=== PATIENT | male | born 1945 | race African-American/Black ===

== ENCOUNTER 2016-09-19 09:49 | Inpatient (IN) | payer OTHER, MEDICARE ==
[~2016-09-19] VITALS: Ht 172.7 cm; Wt 49.9 kg
[2016-09-19] VITALS (7 sets, daily range): BP systolic 97–121; BP diastolic 61–77
[~2016-09-19 09:49] MED LIST: DIGOXIN0.125 MG/2 ORAL; EC-NAPROSYN375 MG PO; FOLIC ACID1 MG ORAL; FUROSEMIDE40 MG ORAL; HYDROCODON-ACE1 EA16 ORAL; IBUPROFEN600 MG ORAL; LANOXIN125 MCG ORAL; LISINOPRIL2.5 MG ORAL; LOPRESSOR25 M1 ORAL; METHADONE HCL10 MG PO; METHADONE HCL5 MG PO; METOPROLOL TART25 MG ORAL; MIRALAX17 G2 ORAL; MULTI VITAMIN1 EACH ORAL; NORCO 5-325 TA1 EACH ORAL; POTASSIUM CHLO20 ME3 PO; POTASSIUM20 MEQ/101 PO; ROBAXIN500 MG PO; SENNA-GEN8.6 M1 ORAL; SILDENAFIL20 MG ORAL; THIAMINE HCL50 MG PO; TRAMADOL HCL50 MG ORAL; UNOBMED; ZESTRIL10 M1 ORAL
[2016-09-19] MEDS ORDERED: NS 250 ML IV ONE (09:55)
[2016-09-19] MEDS ORDERED: Albuterol ud Inhalation HHN ONE (10:00)
[2016-09-19] MEDS ORDERED: Ipratropium 0.02% Inh Soln 2.5ml UD HHN ONE (10:00)
--- NOTE | 2016-09-19 10:03 | Emergency Room Report ---
History of Present Illness General Chief Complaint: Chest Pain Source: Patient, Medical Record Present Illness HPI Patient presents as a pickup from the ED driveway. Brought in by wheelchair with staff. Complaints of chest discomfort and left hip pain. The patient states that he had tripped and fallen and hit his left side on the ground. He also complains of chest discomfort, substernal, retrosternal, yesterday after the fall. Primarily complaining now of left hip pain. He has a history of CHF , history of apparently use, a history of smoking and possible COPD as well. Otherwise the patient denies shortness of breath or abdominal pain at this time. No bowel or bladder complaints, has not had a bowel movement since before the fall. Allergies: Coded Allergies: No Known Allergies (Unverified , 02/25/16) Patient History Past Medical History: see triage record, old chart reviewed, CHF, COPD, other - heroine abuse Past Surgical History: unable to obtain Pertinent Family History: unable to obtain Social History: Reports: drug use, smoking Immunizations: UTD Reviewed Nursing Documentation: PMH: Agreed Nursing Documentation-PMH Hx Cardiac Problems: Yes - CHF Hx Hypertension: Yes Hx Pacemaker: No Hx Asthma: Yes Hx COPD: Yes Hx Cancer: No Hx Gastrointestinal Problems: No Hx Neurological Problems: No Review of Systems Cardiovascular: Reports: chest pain Musculoskeletal: Reports: joint pain All Other Systems: negative except mentioned in HPI Physical Exam Vital Signs Date Time Temp Pulse Resp B/P Pulse Ox O2 Delivery O2 Flow Rate FiO2 09/19/16 09:52 Room Air General Appearance: no apparent distress, alert, GCS 15, cachetic, thin, other - severe contacted, very bony, almost no subcutaneous tissue Head: atraumatic Eyes: bilateral eye EOMI, bilateral eye PERRL ENT: hearing grossly normal, normal pharynx, dry mucus membranes Neck: full range of motion, supple Respiratory: no respiratory distress, no retraction, no accessory muscle use, no wheezing, decreased breath sounds Cardiovascular #1: regular rate, rhythm, no edema, no gallop Gastrointestinal: soft, no guarding, no hernia, no rebound Genitourinary: no CVA tenderness Neurologic: alert, oriented x3, responsive Psychiatric: judgement/insight normal, mood/affect normal Skin: other - low turgor, abrasions - old abrasions over bilateral dean, swelling of the left leg/Ankle below. +1 edema, unchanged from chronic per patient Lymphatic: no adenopathy Medical Decision Making Diagnostic Impression: Primary Impression: Chest pain Additional Impressions: Venous stasis ulcer Fall Hip pain, left Acute pain of left hip CHF (congestive heart failure) ER Course Patient is evaluated for chest discomfort as well as a fall with a skilled skeletal complaints of hip pain. Stat EKG as well as place patient on a monitor , x-rays of the chest as well as the hip and pelvis should be obtained and basic blood work. 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 And overall is bony exam reveals some tenderness but no crepitus and no obvious signs of fracture. He is very frail and probably osteo- penic at baseline so the risk of occult fracture is possible. Basic blood work has been reviewed and demonstrates an elevated BNP as well as low chloride. Patient's chest x-ray does not demonstrates severe pneumonia but there is some chronic changes possibly worsening effusion and pulmonary congestion. Patient is still in severe pain even after morphine and methadone and is unable to ambulate or weight-bear. I spoke with the patient's primary DrHaley as well as admitting physician Dr. Mcnally, to admit the patient for [facility] acute rehabilitation. On my initial evaluation do not appreciate acute fractures of the hip or pelvis, the patient does have prior surgery in both hips. Final read of the x-rays pending by radiology. Patient receive pain medications, Lasix, nebulizers and antibiotics as well as pain control in the emergency department. Laboratory Tests Test 09/19/16 10:05 White Blood Count 2.4 K/UL (4.8-10.8) L Red Blood Count 4.52 M/UL (4.70-6.10) L Hemoglobin 13.1 G/DL (14.2-18.0) L Hematocrit 42.0 % (42.0-52.0) Mean Corpuscular Volume 93 FL (80-99) Mean Corpuscular Hemoglobin 28.9 PG (27.0-31.0) Mean Corpuscular Hemoglobin Concent 31.1 G/DL (32.0-36.0) L Red Cell Distribution Width 14.1 % (11.6-14.8) Platelet Count 163 K/UL (150-450) Mean Platelet Volume 6.3 FL (6.5-10.1) L Neutrophils (%) (Auto) % (45.0-75.0) Lymphocytes (%) (Auto) % (20.0-45.0) Monocytes (%) (Auto) % (1.0-10.0) Eosinophils (%) (Auto) % (0.0-3.0) Basophils (%) (Auto) % (0.0-2.0) Differential Total Cells Counted 100 Neutrophils % (Manual) 50 % (45-75) Lymphocytes % (Manual) 31 % (20-45) Monocytes % (Manual) 15 % (1-10) H Eosinophils % (Manual) 4 % (0-3) H Basophils % (Manual) 0 % (0-2) Band Neutrophils 0 % (0-8) Platelet Estimate Adequate Platelet Morphology Normal Hypochromasia 1+ Anisocytosis 1+ Sodium Level 136 mEQ/L (135-145) Potassium Level 3.4 mEQ/L (3.4-4.9) Chloride Level 92 mEQ/L (98-107) L Carbon Dioxide Level 35 mEQ/L (20-30) H Anion Gap 9 (5-15) Blood Urea Nitrogen 9 mg/dL (7-23) Creatinine 0.7 mg/dL (0.7-1.2) Estimat Glomerular Filtration Rate > 60 mL/min (>60) Glucose Level 70 mg/dL (74-106) L Calcium Level 8.8 mg/dL (8.6-10.2) Total Bilirubin 0.7 mg/dL (0.0-1.2) Aspartate Amino Transf (AST/SGOT) 25 U/L (5-40) Alanine Aminotransferase (ALT/SGPT) 7 U/L (3-41) Alkaline Phosphatase 69 U/L (40-129) Total Creatine Kinase 88 U/L (38-174) Creatine Kinase MB 2.6 ng/mL (< 6.7) Creatine Kinase MB Relative Index 2.9 Troponin I < 0.30 ng/mL (<=0.30) Pro-B-Type Natriuretic Peptide 6940 pg/mL (0-125) H Total Protein 8.7 g/dL (6.6-8.7) Albumin 3.5 g/dL (3.5-5.2) Globulin 5.2 g/dL Albumin/Globulin Ratio 0.6 (1.0-2.7) L Digoxin Level < 0.3 ng/mL (0.5-2.0) L Lab Results Impression noted elevated BNP, mildly low chloride EKG Diagnostic Results EKG Time: 09:53 Rate: tachycardiac, other - sinus tachycardia with occasional PVC Rhythm: NSR ST Segments: other - left axis deviation, incomplete right bundle branch block , occasional PVC ASA given to the pt in ED: No Rhythm Strip Diag. Results Rhythm Strip Time: 12:07 EP Interpretation: yes Rate: rate 100 Rhythm: NSR, other - with occasional PVC Chest X-Ray Diagnostic Results Time: 12:07 EP Interpretation: Yes Findings: no effusion, no pneumothorax, no acute cardiopulmonary disease, other - chronic stable chest x-ray by my impression, signs of COPD and cardiomegaly Other X-Ray Diagnostic Results Other X-Ray Diagnostic Results : X-Ray Ordered: hip and pelvis x-rays Date: Sep 19, 2016 Time: 12:08 EP Interpretation: Yes Findings: no fractures, no dislocation, no soft tissue swelling, other - hardware in both hips, 3 screws in the left hip, no acute fracture or hardware damage per my initial report Number of Views: other Reevaluation Time: 14:15 Last Vital Signs Date Time Temp Pulse Resp B/P Pulse Ox O2 Delivery O2 Flow Rate FiO2 09/19/16 09:52 Room Air Status: improved Disposition: ADMITTED INPATIENT Admit Decision Time: 14:16 Condition: Serious Richard Fowler MD Sep 19, 2016 10:03
[2016-09-19] MEDS ORDERED: Tubing IV Cassette IV ONE (10:18)
[2016-09-19 10:37] LABS: TROPONIN I < 0.30 ng/mL (<=0.30)
[2016-09-19 10:38] LABS: ALANINE AMINOTRANSFERASE 7 U/L (3-41); ALBUMIN/GLOBULIN RATIO 0.6 (1.0-2.7); ANION GAP 9 (5-15); ASPARTATE AMINO TRANSFERASE 25 U/L (5-40); CALCIUM 8.8 mg/dL (8.6-10.2); CARBON DIOXIDE 35 mEQ/L (20-30); CHLORIDE 92 mEQ/L (98-107); CREATININE 0.7 mg/dL (0.7-1.2); GLOMERULAR FILTRATION RATE > 60 mL/min (>60); HEMOLYSIS 0; POTASSIUM 3.4 mEQ/L (3.4-4.9); SODIUM 136 mEQ/L (135-145); TOTAL PROTEIN 8.7 g/dL (6.6-8.7)
[2016-09-19 10:45] LABS: MEAN CORPUSCULAR HEMOGLOBIN 28.9 PG (27.0-31.0); MEAN CORPUSCULAR HGB CONC 31.1 G/DL (32.0-36.0); MEAN CORPUSCULAR VOLUME 93 FL (80-99); MEAN PLATELET VOLUME 6.3 FL (6.5-10.1); PLATELET COUNT 163 K/UL (150-450); RED BLOOD COUNT 4.52 M/UL (4.70-6.10); RED CELL DISTRIBUTION WIDTH 14.1 % (11.6-14.8); WHITE BLOOD COUNT 2.4 K/UL (4.8-10.8)
[2016-09-19 10:49] LABS: CKMB 2.6 ng/mL (< 6.7); DIGOXIN < 0.3 ng/mL (0.5-2.0)
[2016-09-19 11:10] LABS: EOSINOPHILS % (MANUAL) 4 % (0-3); LYMPHOCYTES % (MANUAL) 31 % (20-45); NEUTROPHILS % (MANUAL) 50 % (45-75); TOTAL CELLS COUNTED 100
[2016-09-19 11:11] LABS: ANISOCYTOSIS 1+; BAND NEUTROPHILS % (MANUAL) 0 % (0-8); BASOPHILS % (MANUAL) 0 % (0-2); HYPOCHROMASIA 1+; PLATELET ESTIMATE ADEQUATE; PLATELET MORPHOLOGY NORMAL
--- NOTE | 2016-09-19 12:11 | Diagnostic Imaging Report ---
Indications: Chest pain Technique: Portable AP chest Findings: Comparison: 06/23/16 Linear densities have developed in the right lung base have increased the left lung base. Background bibasal interstitial prominence unchanged. Cardiac silhouette remains enlarged. Central pulmonary vasculature remains prominent. Peripheral pulmonary vasculature remains within normal limits. Left costophrenic angle now indistinct; right remain sharp. Aortic arch calcification again noted. IMPRESSION: Development of right, increase in left basal subsegmental atelectasis Small left pleural effusion not excludable Stable chronic changes as described
[2016-09-19] MEDS ORDERED: Azithromycin Inj IV ONE (12:38)
[2016-09-19] MEDS ORDERED: Azithromycin 500 MG in NS 275 ML IVPB ONE (12:45)
[2016-09-19] MEDS ORDERED: Morphine Sulfate 4mg/ml Inj IVP ONE (13:00)
--- NOTE | 2016-09-19 17:50 | History & Physical ---
History and Physical History & Physicial Dictated for Int Med-Dr Villa no. [id number]. VELMA WELCH Sep 19, 2016 17:50
[2016-09-19] MEDS: Morphine Sulfate 2mg/ml Inj IVP PRN ×2 (18:56→23:04)
[2016-09-19] MEDS ORDERED: Morphine Sulfate 4mg/ml Inj IVP PRN (20:00)
[2016-09-19] MEDS ORDERED: Morphine Sulfate 2mg/ml Inj IVP PRN (20:00)
[2016-09-19] MEDS ORDERED: Heparin 5000 units/ml inj SUBQ SCH (21:00)
[2016-09-19] MEDS: Heparin 5000 units/ml inj SUBQ SCH (23:03)
[2016-09-20] VITALS (7 sets, daily range): BP systolic 95–116; BP diastolic 60–73
--- NOTE | 2016-09-20 02:38 | History and Physical Report ---
DATE OF ADMISSION: 09/19/2016 CHIEF COMPLAINT: The patient is a 71-year-old, male, presents to complaint of left hip pain, chest pain, and shortness of breath. HISTORY OF PRESENT ILLNESS: The patient states he fell yesterday on 09/18/2016. The patient injured his left hip. The patient may have had previous surgery of the left hip. The patient also complains of tightness in the chest. The patient also complains of shortness of breath. The patient presented to [facility]. The patient was admitted for chest pain to rule out acute coronary syndrome and left hip pain to rule out fracture. PAST MEDICAL HISTORY: Significant for: 1. Type 2 diabetes. 2. Congestive heart failure. 3. Chronic obstructive pulmonary disease. 4. Hypertension. 5. History of atrial fibrillation. CURRENT MEDICATIONS: 1. Digoxin 0.125 mg one tablet p.o. daily. 2. Folic acid 1 mg one tablet p.o. daily. 3. Lasix 40 mg one tablet p.o. daily. 4. Lisinopril 10 mg one tablet p.o. daily. 5. Ibuprofen 600 mg one tablet p.o. q.6 h. 6. Cresson 5/325 one tablet p.o. q.4 h. p.r.n. 7. Methadone 50 mg one tablet p.o. daily. 8. Robaxin 500 mg one tablet p.o. three times daily. 9. Lopressor 12.5 mg one tablet p.o. q.12 h. 10. Multivitamin daily. 11. Naprosyn 220 mg one tablet p.o. three times daily. 12. Potassium chloride 20 mEq one tablet p.o. daily. 13. Thiamin 100 mg one tablet p.o. daily. ALLERGIES: No known drug allergies. SOCIAL HISTORY: The patient is single and is disabled. The patient admits to tobacco use of one pack per day. The patient states he quit drinking alcohol six months ago. REVIEW OF SYSTEMS: CONSTITUTIONAL: The patient denies weight loss or weight gain. The patient denies fevers or chills. HEENT: The patient denies ear or throat pain. CARDIOVASCULAR: The patient denies palpitations or chest pain. CHEST: The patient denies wheeze or shortness of breath. ABDOMEN: The patient denies nausea, vomiting, diarrhea, or constipation. GENITOURINARY: The patient denies dysuria or increased frequency of urination. NEUROMUSCULAR: The patient complains of as above. The patient complains of bilateral feet swelling. The patient denies any generalized weakness. PHYSICAL EXAMINATION: VITAL SIGNS: Temperature 98, respirations 18, pulse 94, blood pressure 119/77. GENERAL: The patient is cachectic, thin-appearing, and disheveled male in no apparent distress. HEENT: Eyes - pupils are equal and responsive to light and accommodation. Extraocular movements are intact. NECK: Supple without lymphadenopathy. CHEST: Lungs are clear to auscultation bilaterally without wheezes or rales. CARDIOVASCULAR: Regular rhythm and rate. S1 and S2. No murmurs, rubs, or gallops. ABDOMEN: Soft, nontender, and nondistended. Positive bowel sounds. No evidence of hepatosplenomegaly currently. No rebound. No guarding noted. EXTREMITIES: Negative for clubbing, cyanosis, or or edema. RECTAL/GENITAL: Refused. NEUROLOGIC: Cranial nerves II through XII are grossly intact without focal deficits. Motor strength is 5/5 bilaterally. Deep tendon reflexes 2+ plantar. LABORATORY STUDIES: WBC 2.4, hemoglobin 13.1, hematocrit 42.0, and platelets 163,000. Sodium 136, potassium 3.4, chloride 92, CO2 35, BUN 9, creatinine 0.7, glucose 72. Troponin less is less than 0.3. BNP elevated at 6940. Urine drug screen was positive for opiates. ASSESSMENT: This is a 71-year-old male with: 1. Chest pain. 2. Shortness of breath. 3. Left hip pain. 4. Congestive heart failure. 5. Diabetes type 2. 6. Hypertension. 7. Atrial fibrillation. 8. Chest pain. A Cardiology consultation has been obtained with Dr. Zepeda. The patient's BNP is elevated. An echocardiogram is pending. Serial troponin levels will be run. The patient will continue Lasix as above. 9. Diabetes type 2. The patient is currently off antihyperglycemic medication. Hemoglobin A1c is pending. The patient has been started on a regular insulin sliding scale. 10. Hypertension. Continue Lopressor as above. 11. Atrial fibrillation. Continue digoxin as above. A Cardiology consultation obtained with Dr. Zepeda. Tyrese Mcnally M.D. DR: LELE JOB#: [id number] CC:
[2016-09-20 08:19] LABS: MEAN CORPUSCULAR HEMOGLOBIN 28.9 PG (27.0-31.0); MEAN CORPUSCULAR HGB CONC 30.8 G/DL (32.0-36.0); MEAN CORPUSCULAR VOLUME 94 FL (80-99); MEAN PLATELET VOLUME 5.9 FL (6.5-10.1); PLATELET COUNT 135 K/UL (150-450); RED BLOOD COUNT 4.26 M/UL (4.70-6.10); RED CELL DISTRIBUTION WIDTH 14.1 % (11.6-14.8); WHITE BLOOD COUNT 2.7 K/UL (4.8-10.8)
[2016-09-20] MEDS: Morphine Sulfate 2mg/ml Inj IVP PRN ×3 (08:34→21:04)
[2016-09-20] MEDS: Heparin 5000 units/ml inj SUBQ SCH ×2 (08:35→21:00)
[2016-09-20] MEDS: Digoxin 0.125mg tab ORAL SCH (08:36)
[2016-09-20] MEDS: Furosemide 40mg tab ORAL SCH (08:36)
[2016-09-20 08:38] LABS: TROPONIN I < 0.30 ng/mL (<=0.30)
--- NOTE | 2016-09-20 08:41 | Consultation ---
Consult Note Consult Note Cardiology for Dr. Zepeda Full consult dictated. # [id number] ROMULO AMBROSIO Sep 20, 2016 08:41
[2016-09-20 08:42] LABS: ANION GAP 8 (5-15); CALCIUM 8.5 mg/dL (8.6-10.2); CARBON DIOXIDE 36 mEQ/L (20-30); CHLORIDE 92 mEQ/L (98-107); CREATININE 0.6 mg/dL (0.7-1.2); GLOMERULAR FILTRATION RATE > 60 mL/min (>60); HEMOLYSIS 3; POTASSIUM 3.7 mEQ/L (3.4-4.9); SODIUM 136 mEQ/L (135-145)
[2016-09-20] MEDS ORDERED: Digoxin 0.125mg tab ORAL SCH (09:00)
[2016-09-20] MEDS ORDERED: Furosemide 40mg tab ORAL SCH (09:00)
--- NOTE | 2016-09-20 10:10 | Diagnostic Imaging Report ---
Indications: Pelvic and left hip pain Technique: AP pelvis, 2 views left hip. Findings: Comparison: None No acute fracture, dislocation, joint space widening , lytic destruction, periosteal reaction , surrounding soft tissue swelling/foreign body/gas, or other acute changes are identified. Fixation hardware bridges an old, healed fractures of the right femoral intertrochanteric region, left femoral neck with residual deformity. Old fractures with residual contour deformity right inferior, left superior ischiopubic rami. Bones diffusely demineralized. IMPRESSION: No evidence of acute abnormality Multiple old fractures as described, status post bilateral femoral ORIF Osteopenia
[2016-09-20 11:49] LABS: BAND NEUTROPHILS % (MANUAL) 0 % (0-8); BASOPHILS % (MANUAL) 2 % (0-2); EOSINOPHILS % (MANUAL) 6 % (0-3); HYPOCHROMASIA 1+; LYMPHOCYTES % (MANUAL) 36 % (20-45); NEUTROPHILS % (MANUAL) 42 % (45-75); PLATELET ESTIMATE DECREASED; PLATELET MORPHOLOGY NORMAL; TOTAL CELLS COUNTED 100
--- NOTE | 2016-09-20 13:08 | Consultation ---
DATE OF CONSULTATION: This is being done as coverage for Dr. Zepeda. REASON FOR CONSULT: Chest pain. HISTORY OF PRESENT ILLNESS: History is obtained from the chart as well as limited history from the patient who is a fair historian. HISTORY OF PRESENT ILLNESS: The patient is a 71-year-old man with type 2 diabetes, history of atrial fibrillation, COPD, and hypertension, who presents with left hip pain and chest pain. He states that he fell on the day prior to admission. He injured his left side. He also developed chest pain. He was admitted for further treatment. He states that he has not had previous chest pain, angina, or myocardial infarction. Per the chart, the patient has a history of congestive heart failure though he is not aware of any cardiac diagnosis. MEDICATIONS: Digoxin 0.125 mg daily, Lasix 40 mg daily, subcutaneous heparin 5000 units every 12 hours,, morphine 2 mg intravenous every four hours as needed, and Tylenol as needed. ALLERGIES: No known drug allergies. PAST MEDICAL HISTORY: As noted above. SOCIAL HISTORY: The patient reports smoking few cigarettes per day. Denies alcohol or drug use. PHYSICAL EXAMINATION: VITAL SIGNS: Blood pressure is 98/60, pulse 69 regular, respirations 20, and afebrile. GENERAL: Alert, cachectic male, complaining of left hip pain, leg pain, and asking for pain medication. HEENT: Normocephalic and atraumatic. Pupils are equal, round, and reactive to light. Sclerae anicteric. Oral mucosa are moist. NECK: Supple. There is no jugular venous distention. No carotid bruits. LUNGS: Decreased breath sounds at the bases. HEART: Regular S1 and S2. No murmurs, rubs, or S3. ABDOMEN: Soft, nontender. No palpable mass. EXTREMITIES: No cyanosis, clubbing, or edema. A 2+ dorsalis pedis pulses bilaterally. Venous stasis changes. LABORATORY DATA: Hemoglobin 12.3, white blood count 2700, and platelets 135,000. Potassium 3.4, BUN 9, and creatinine 0.7. Pro-natriuretic peptide 6940. Troponin less than 0.3. Chest x-ray shows linear density at the right base, prominent central pulmonary vasculature, and possible small left pleural effusion. EKG shows sinus tachycardia, rate of 100 beats per minute, occasional premature ventricular and premature atrial complexes, incomplete right bundle branch block, and no ST-segment changes. ASSESSMENT AND RECOMMENDATIONS: The patient is a 71-year-old man with a history of hypertension, diabetes, atrial fibrillation, and congestive heart failure per the chart. He presents with the left-sided pain as well as chest pain following a fall. The cause of his chest pain is uncertain, but would appear more likely to be musculoskeletal also history of drug use per chart though the patient denies. He was admitted with left hip pain and chest pain following a fall and the fall was nonsyncopal. The cause of his chest pain is uncertain, but would appear more likely to be musculoskeletal given the absence of ischemic EKG changes and negative troponin levels. I would recommend obtaining an echo to clarify the diagnosis of congestive heart failure and also to assess regional wall motion. He is currently normotensive and does not require antihypertensive currently so if he has left ventricular dysfunction, we would start an angiotensin-converting enzyme inhibitor or angiotensin receptor christine. I would not pursue further workup for ischemia at this time given that his pain is atypical and there are no objective signs and symptoms of myocardial ischemia. Thank you for allowing me to see him in Cardiology consultation. I will follow up the results of his echo and make further recommendations. Thank you. I would not pursue further workup for myocardial ischemia at this time given the nature of his symptoms and lack of objective evidence for myocardial ischemia. Thank you for allowing me to see him in Cardiology consultation. I will follow up the results of his echo and make further recommendations. Damaris Ren M.D. DR: SHAYY JOB#: [id number] CC: Tyrese Mcnally M.D.; Fax#: [phone]
--- NOTE | 2016-09-20 15:45 | Wound Care Consultation ---
Wound Assessment Wound Assessment #1: Wound Present on Admission: Yes New Wound: No Status Change of Wound: No Wound Location Body Site Modif: left, anterior Wound Location Body Site: leg Wound Type: scar Andrés Test: Does not Andrés Wound Thickness: Full Thickness Wound Length: 14.0 Wound Width: 2.0 Wound Depth: utd Percent of Wound Carrier/Red: 100 Wound Drainage Amount: None Wound Drainage Odor: None/Absent Tissue Surrounding Wound: dry and flaky skin Wound General Appearance: Asymptomatic, Open to air Wound Assessment #2: Wound Number: #2 Wound Present on Admission: Yes New Wound: No Status Change of Wound: No Wound Location Body Site Modif: right, anterior Wound Location Body Site: leg Wound Type: scar Andrés Test: Does not Andrés Wound Thickness: Full Thickness Wound Length: 17.0 Wound Width: 3.0 Wound Depth: utd Percent of Wound Carrier/Red: 100 Wound Drainage Amount: None Wound Drainage Odor: None/Absent Tissue Surrounding Wound: dry and flaky skin Wound General Appearance: Asymptomatic, Open to air Wound Comment #1 Left lower leg with old scar and dry flaky skin #2 Right lower leg with old scar and dry flaky skin Recommendation -Keep clean and dry -Keep dry skin moist -Optimize nutrition -Offload both heels -Turn and reposition -Assess and f/u with MD for any changes BRIAN RAMIREZ RN Sep 20, 2016 15:45
--- NOTE | 2016-09-20 16:34 | Internal Med Progress Note ---
Subjective Physician Name Justus Ruffin Attending Physician Justus Ruffin M.D. Current Medications Medications (Trade) Dose Ordered Sig/Aimee Route PRN Reason Start Time Stop Time Status Last Admin Dose Admin Acetaminophen (Tylenol) 650 mg Q4H PRN ORAL FEVER 09/19/16 20:00 10/19/16 19:59 Digoxin (Lanoxin) 0.125 mg DAILY ORAL 09/20/16 09:00 10/20/16 08:59 09/20/16 08:36 Furosemide (Lasix) 40 mg DAILY ORAL 09/20/16 09:00 10/20/16 08:59 Heparin Sodium (Porcine) (Heparin 5000 units/ml) 5,000 units EVERY 12 HOURS SUBQ 09/19/16 21:00 10/19/16 20:59 09/20/16 08:35 Morphine Sulfate (Morphine Sulfate) 2 mg Q4H PRN IVP Moderate Pain (Pain Scale 4-6) 09/19/16 20:00 09/26/16 19:59 09/20/16 08:34 Morphine Sulfate (Morphine Sulfate) 4 mg Q4H PRN IVP Severe Pain (Pain Scale 7-10) 09/19/16 20:00 09/26/16 19:59 Ondansetron HCl (Zofran) 4 mg Q6H PRN IVP Nausea & Vomiting 09/19/16 20:00 10/19/16 19:59 Vitamin A/Vitamin D (A & D Oint) 1 applic EVERY 12 HOURS TOPIC 09/20/16 21:00 10/20/16 20:59 Allergies: Coded Allergies: No Known Allergies (Unverified , 02/25/16) All Systems: reviewed and negative except above - left leg pain Objective Last Vital Signs Date Time Temp Pulse Resp B/P Pulse Ox O2 Delivery O2 Flow Rate FiO2 09/20/16 16:00 98.2 83 18 102/66 93 Room Air 09/20/16 11:27 3.0 09/19/16 15:54 28 General Appearance: WD/WN, no apparent distress, other - cachectic EENT: PERRL/EOMI, normal ENT inspection Neck: supple, normal inspection Cardiovascular: normal rate, regular rhythm Respiratory/Chest: lungs clear, normal breath sounds Abdomen: non tender, soft Extremities: normal inspection, no calf tenderness Edema: trace edema Neurologic: other - can move all extremities except left lower ext. awake and alert Skin: normal pigmentation, warm/dry Laboratory Tests Test 09/20/16 07:45 White Blood Count 2.7 K/UL (4.8-10.8) L Red Blood Count 4.26 M/UL (4.70-6.10) L Hemoglobin 12.3 G/DL (14.2-18.0) L Hematocrit 39.9 % (42.0-52.0) L Mean Corpuscular Volume 94 FL (80-99) Mean Corpuscular Hemoglobin 28.9 PG (27.0-31.0) Mean Corpuscular Hemoglobin Concent 30.8 G/DL (32.0-36.0) L Red Cell Distribution Width 14.1 % (11.6-14.8) Platelet Count 135 K/UL (150-450) L Mean Platelet Volume 5.9 FL (6.5-10.1) L Neutrophils (%) (Auto) % (45.0-75.0) Lymphocytes (%) (Auto) % (20.0-45.0) Monocytes (%) (Auto) % (1.0-10.0) Eosinophils (%) (Auto) % (0.0-3.0) Basophils (%) (Auto) % (0.0-2.0) Differential Total Cells Counted 100 Neutrophils % (Manual) 42 % (45-75) L Lymphocytes % (Manual) 36 % (20-45) Monocytes % (Manual) 14 % (1-10) H Eosinophils % (Manual) 6 % (0-3) H Basophils % (Manual) 2 % (0-2) Band Neutrophils 0 % (0-8) Platelet Estimate Decreased L Platelet Morphology Normal Red Blood Cell Morphology Hypochromasia 1+ Sodium Level 136 mEQ/L (135-145) Potassium Level 3.7 mEQ/L (3.4-4.9) Chloride Level 92 mEQ/L (98-107) L Carbon Dioxide Level 36 mEQ/L (20-30) H Anion Gap 8 (5-15) Blood Urea Nitrogen 9 mg/dL (7-23) Creatinine 0.6 mg/dL (0.7-1.2) L Estimat Glomerular Filtration Rate > 60 mL/min (>60) Glucose Level 63 mg/dL (74-106) L Calcium Level 8.5 mg/dL (8.6-10.2) L Troponin I < 0.30 ng/mL (<=0.30) Pro-B-Type Natriuretic Peptide 6902 pg/mL (0-125) H Intake and Output 09/19/16 09/20/16 19:00 07:00 Intake Total 525 ml 240 ml Output Total 1900 ml 300 ml Balance -1375 ml -60 ml Intake Oral 0 ml 240 ml IV Total 525 ml Output Urine Total 1900 ml 300 ml # Voids 1 Assessment/Plan Assessment/Plan 1. Left hip pain. 2. Fall - xrays of hip shows no fracture - PT eval - suggested going to SNF. cannot take care of himself - check orthostatics - ortho evaluation 3. h/o heroin use on Methadone - pharmacy to c/w methadone (can confirm with methadone clinic) 4. h/o Systolic Dysfunction Congestive heart failure --> resolved 5. Diabetes type 2 - RISS 6. Hypertension. --> now hypotension 7. Atrial fibrillation - c/w digoxin - cards f/u 8. h/o ORIF and several old fractures from falls JUSTUS RUFFIN M.D. Sep 20, 2016 16:33
--- NOTE | 2016-09-20 21:29 | Cardiology Report ---
APPROVED REPORT EKG Measurement Heart [id number] Sinus tachycardia with occasional premature ventricular complexes Left axis deviation Incomplete right bundle branch block Cannot rule out Anterior infarct, age undetermined Abnormal ECG
[2016-09-20] MEDS: Vitamin A&D Oint 2oz Tube TOPIC SCH (21:32)
[2016-09-21] MEDS: Morphine Sulfate 4mg/ml Inj IVP PRN ×4 (01:23→20:04)
[2016-09-21 04:00] VITALS: BP 108/71
[2016-09-21 08:30] VITALS: BP 116/77
[2016-09-21] MEDS: Vitamin A&D Oint 2oz Tube TOPIC SCH ×2 (09:11→22:27)
[2016-09-21] MEDS: Furosemide 40mg tab ORAL SCH (09:12)
[2016-09-21] MEDS: Digoxin 0.125mg tab ORAL SCH (09:13)
[2016-09-21] MEDS: Heparin 5000 units/ml inj SUBQ SCH ×2 (09:16→21:00)
[2016-09-21 12:00] VITALS: BP 99/59
[2016-09-21 12:03] VITALS: BP 99/59
--- NOTE | 2016-09-21 14:24 | Cardiology Report ---
APPROVED REPORT EXAM: Two-dimensional and M-mode echocardiogram with Doppler and color Doppler. INDICATION Chest Pain M-Mode DIMENSIONS IVSd1.1 (0.7-1.1cm)Left Atrium (MM)3.7 (1.6-4.0cm) LVDd4.9 (3.5-5.6cm)Aortic Root3.1 (2.0-3.7cm) PWd0.8 (0.7-1.1cm)Aortic Cusp Exc.1.9 (1.5-2.0cm) LVDs2.7 (2.5-4.0cm) PWs1.3 cm Abnormal septal motion maybe due to RV volume overload, otherwise normal systolic function and wall motion. Left ventricular ejection fraction estimated to be 55-60 %. No evidence of left ventricular hypertrophy. No evidence of pericardial fat or effusion. Severe right atrial and right ventricular enlargement by 2D. Moderate enlargement of the right chambers. D-shape LV in short axis view suggests RV volume overload. Left cardiac chamber sizes are within normal limits. Focal aortic valve sclerosis with adequate cusp excursion Thickened mitral valve leaflets with normal excursion. Mitral annulus and aortic root calcification. Pulmonic valve not well visualized. Thickened tricuspid valve leaflet with normal excursion. IVC dilated at 2.1cm with minimal physiologic collapse. A color flow and spectral Doppler study was performed and revealed: No aortic regurgitation. Trace mitral regurgitation. Left ventricular diastolic dysfunction grade 1. Moderate tricuspid regurgitation. Tricuspid systolic velocities suggests peak right ventricular systolic pressure of 53 mmHg Consistent with severe pulmonary hypertension.
[2016-09-21 16:00] VITALS: BP 114/78
[2016-09-21] MEDS: Morphine Sulfate 2mg/ml Inj IVP PRN (16:45)
--- NOTE | 2016-09-21 17:55 | Internal Med Progress Note ---
Subjective Physician Name Justus Ruffin Attending Physician Justus Ruffin M.D. Current Medications Medications (Trade) Dose Ordered Sig/Aimee Route PRN Reason Start Time Stop Time Status Last Admin Dose Admin Acetaminophen (Tylenol) 650 mg Q4H PRN ORAL FEVER 09/19/16 20:00 10/19/16 19:59 Digoxin (Lanoxin) 0.125 mg DAILY ORAL 09/20/16 09:00 10/20/16 08:59 09/21/16 09:13 Folic Acid (Folate) 1 mg DAILY ORAL 09/21/16 09:00 10/21/16 08:59 09/21/16 09:14 Furosemide (Lasix) 40 mg DAILY ORAL 09/20/16 09:00 10/20/16 08:59 09/21/16 09:12 Heparin Sodium (Porcine) (Heparin 5000 units/ml) 5,000 units EVERY 12 HOURS SUBQ 09/19/16 21:00 10/19/16 20:59 09/21/16 09:16 Methadone HCl (Methadone HCl) 40 mg DAILY ORAL 09/21/16 09:00 09/28/16 08:59 09/21/16 09:12 Morphine Sulfate (Morphine Sulfate) 2 mg Q4H PRN IVP Moderate Pain (Pain Scale 4-6) 09/19/16 20:00 09/26/16 19:59 09/21/16 16:45 Morphine Sulfate (Morphine Sulfate) 4 mg Q4H PRN IVP Severe Pain (Pain Scale 7-10) 09/19/16 20:00 09/26/16 19:59 09/21/16 10:58 Ondansetron HCl (Zofran) 4 mg Q6H PRN IVP Nausea & Vomiting 09/19/16 20:00 10/19/16 19:59 Vitamin A/Vitamin D (A & D Oint) 1 applic EVERY 12 HOURS TOPIC 09/20/16 21:00 10/20/16 20:59 09/21/16 09:11 Allergies: Coded Allergies: No Known Allergies (Unverified , 02/25/16) Subjective on 2-3L with O2 sat 92-94% denies SOB RLE pain and weakness better 12pt ROS neg except above positives Objective Last Vital Signs Date Time Temp Pulse Resp B/P Pulse Ox O2 Delivery O2 Flow Rate FiO2 09/21/16 16:00 89 100 99 09/21/16 16:00 97.0 18 114/78 94 Nasal Cannula 2.0 09/21/16 15:52 32 General Appearance: alert, cachetic EENT: PERRL/EOMI, TMs normal Neck: supple, normal inspection Cardiovascular: normal rate, regular rhythm Respiratory/Chest: decreased breath sounds, crackles/rales Abdomen: non tender, soft Extremities: normal range of motion, normal inspection Edema: trace edema Neurologic: alert, other - left leg weakness Skin: no diaphoresis, other - stasis dermatitis of legs Intake and Output 09/20/16 09/21/16 19:00 07:00 Intake Total 930 ml 120 ml Output Total 550 ml 100 ml Balance 380 ml 20 ml Intake Oral 930 ml 120 ml Output Urine Total 550 ml 100 ml # Voids 2 Assessment/Plan Assessment/Plan 1. Left hip pain - likely musculosketal 2. Fall - xrays of hip shows no fracture - PT evaluation - SNF vs Home with PT - suggested going to SNF. cannot take care of himself at home but does have caregiver - check orthostatics - neg - TTE - preserved EF but RV fluid overload. 3. h/o heroin use on Methadone - pharmacy to c/w methadone (can confirm with methadone clinic) 4. h/o Systolic Dysfunction Congestive heart failure --> now Acute diastolic CHF exacerbation - has lung crackles. possibly fluid overloaded - lasix 40mg daily - extra lasix x 1 today - CXR ordered 5. Diabetes type 2 - RISS 6. Hypertension. --> now hypotension 7. Atrial fibrillation - c/w digoxin - cards f/u 8. h/o ORIF and several old fractures from falls JUSTUS RUFFIN M.D. Sep 21, 2016 17:55
--- NOTE | 2016-09-21 19:06 | Cardiac Electrophysiology PN ---
Assessment/Plan Status: stable, progressing Status Narrative Mr Kasper has had improvement in resp status. His echo was reviewed. LV function has improved, but RV is dilated and hypokinetic. There is paradoxical septal motion and no resp collapse of IVC w/ inspiration, c/w Rt sided vol overload There is moderate pulm hypertension Cause of current RV findings uncertain - r/o chronic PE Assessment/Plan Will do venous duplex of LEs. Continue diuresis for rt sided chf. No indication for ICD currently, as LV EF has improved. d/w Dr. Villa Subjective ROS Limited/Unobtainable: No Subjective Pt reports cough, without dyspnea. Objective Last 24 Hour Vital Signs Date Time Temp Pulse Resp B/P Pulse Ox O2 Delivery O2 Flow Rate FiO2 09/21/16 16:00 89 100 99 09/21/16 16:00 97.0 89 18 114/78 94 Nasal Cannula 2.0 09/21/16 15:52 Nasal Cannula 3.0 32 09/21/16 15:52 92 Nasal Cannula 3.0 32 09/21/16 12:10 99 09/21/16 12:05 87 09/21/16 12:00 82 09/21/16 12:00 85 09/21/16 12:00 97.0 82 20 99/59 98 Nasal Cannula 2.0 09/21/16 09:13 106 09/21/16 08:40 106 09/21/16 08:35 88 09/21/16 08:30 85 09/21/16 08:30 96.9 80 20 116/77 96 Room Air 09/21/16 08:00 78 09/21/16 04:01 82 09/21/16 04:00 98 82 92 09/21/16 04:00 98.2 92 20 108/71 91 Room Air 09/20/16 23:38 89 09/20/16 23:15 98.8 89 20 110/72 93 Room Air 09/20/16 20:25 98.1 92 20 95/67 91 Room Air 09/20/16 20:00 92 09/20/16 19:00 88 95 103 General Appearance: WD/WN, alert, cachetic Neck: JVD Rhythm: NSR Cardiovascular: normal rate, regular rhythm, no gallop/murmur Respiratory/Chest: other - r lower field rhonchi Abdomen: non tender, soft Extremities: non-tender, other - healed ulcerations of thighs bilat Intake and Output 09/20/16 09/21/16 19:00 07:00 Intake Total 930 ml 120 ml Output Total 550 ml 100 ml Balance 380 ml 20 ml Intake Oral 930 ml 120 ml Output Urine Total 550 ml 100 ml # Voids 2 ROMULO AMBROSIO Sep 21, 2016 19:06
[2016-09-21 20:00] VITALS: BP 107/67
[2016-09-22 00:05] VITALS: BP 123/76
[2016-09-22] MEDS: Morphine Sulfate 4mg/ml Inj IVP PRN ×2 (00:25→10:40)
[2016-09-22 04:30] VITALS: BP 124/87
[2016-09-22] MEDS: Digoxin 0.125mg tab ORAL SCH (08:27)
[2016-09-22] MEDS: Heparin 5000 units/ml inj SUBQ SCH ×2 (08:31→21:00)
[2016-09-22] MEDS: Vitamin A&D Oint 2oz Tube TOPIC SCH ×2 (08:32→21:54)
[2016-09-22] MEDS: Furosemide 40mg tab ORAL SCH (08:32)
[2016-09-22 11:33] VITALS: BP 96/66
--- NOTE | 2016-09-22 11:39 | Cardiology Progress Note ---
Assessment/Plan Status: stable, progressing Status Narrative Mr Kasper has no current c/o dyspnea, at rest. His echo shows EF in the range of 50%, which is improved from 20s during last adm. However, RV is dilated and hypokinetic. There is paradoxical septal motion and no resp collapse of IVC w/ inspiration, c/w Rt sided vol overload There is moderate pulm hypertension Cause of current RV findings uncertain - r/o chronic PE, r/o primary pulm condition Assessment/Plan Venous duplex of LEs pending for today to r/o DVT Continue daily lasix with close montoring of renal function, i/os. No indication for ICD currently, as LV EF has improved. Phys therapy - inc ambulation Subjective ROS Limited/Unobtainable: No Subjective Pt reports improvement in dyspnea. Requesting walker to ambulate Objective Last 24 Hour Vital Signs Date Time Temp Pulse Resp B/P Pulse Ox O2 Delivery O2 Flow Rate FiO2 09/22/16 08:27 87 09/22/16 08:00 73 09/22/16 06:30 88 87 09/22/16 04:30 97.0 78 20 124/87 99 Room Air 09/22/16 04:00 90 09/22/16 00:05 98.0 90 20 123/76 96 Nasal Cannula 2.0 09/22/16 00:00 94 09/22/16 00:00 88 87 09/21/16 20:00 102 09/21/16 20:00 106 117 127 09/21/16 20:00 97.2 82 20 107/67 97 Room Air 09/21/16 19:30 Nasal Cannula 2.0 28 09/21/16 19:30 93 Nasal Cannula 2.0 28 09/21/16 16:00 89 100 99 09/21/16 16:00 100 09/21/16 16:00 97.0 89 18 114/78 94 Nasal Cannula 2.0 09/21/16 15:52 Nasal Cannula 3.0 32 09/21/16 15:52 92 Nasal Cannula 3.0 32 09/21/16 12:10 99 09/21/16 12:05 87 09/21/16 12:00 82 09/21/16 12:00 85 09/21/16 12:00 97.0 82 20 99/59 98 Nasal Cannula 2.0 General Appearance: no apparent distress, alert, cachetic EENT: PERRL/EOMI Neck: supple, no JVD Rhythm: NSR Cardiovascular: normal rate, regular rhythm, no gallop/murmur Respiratory/Chest: other - dec BS at bases Abdomen: non tender, soft Extremities: no swelling Intake and Output 09/21/16 09/22/16 18:59 06:59 Intake Total 360 ml 300 ml Output Total 300 ml 1150 ml Balance 60 ml -850 ml Intake Oral 360 ml 300 ml Output Urine Total 300 ml 1150 ml # Voids 1 Microbiology Date/Time Source Procedure Growth Status 09/19/16 16:06 Nasal Not Otherwise Specified MRSA Culture - Final NO METHICILLIN RESISTANT STAPH AUREUS... Complete 09/19/16 16:06 Rectum VRE Culture - Final NO VANCOMYCIN RESISTANT ENTEROCOCCUS ... Complete ROMULO AMBROSIO Sep 22, 2016 11:39
--- NOTE | 2016-09-22 12:33 | Diagnostic Imaging Report ---
Indication: Dyspnea Comparison: 09/19/16 A single view chest radiograph was obtained. Findings: Lungs are hyperexpanded. Heart is mildly enlarged. Bones are osteopenic. Impression: No significant change.
--- NOTE | 2016-09-22 15:27 | Discharge Summary ---
Discharge Summary Hospital Course Date of Admission Sep 19, 2016 at 15:23 Date of Discharge Admitting Diagnosis Fall, COPD, Failure to thrive, Leg pain HPI Quintin Kasper is a 71 year old male who was admitted on Sep 19, 2016 at 15:23 for fall d/c summary dictated # [id number] Discharge Condition Upon Discharge: stable Discharge Disposition Patient was discharged to HOME Discharge Diagnoses: SAMARA RUFFIN M.D. Sep 22, 2016 15:27
[2016-09-22 16:00] VITALS: BP 97/65
[2016-09-22 20:00] VITALS: BP 99/67
[2016-09-22] MEDS: Morphine Sulfate 2mg/ml Inj IVP PRN (21:54)
[2016-09-23] VITALS: BP 100/64
[2016-09-23] MEDS: Morphine Sulfate 4mg/ml Inj IVP PRN ×2 (02:12→07:57)
[2016-09-23 04:00] VITALS: BP 106/85
--- NOTE | 2016-09-23 04:27 | Discharge Summary ---
DATE OF ADMISSION: 09/19/2016 DATE OF DISCHARGE: 09/22/2016 REASON FOR ADMISSION: Fall. PROCEDURES DONE HERE: None. BRIEF HOSPITAL COURSE AND SUMMARY: This is a 71-year-old male with history of heroin abuse on methadone now, who presents to the hospital after a fall. He had a several x-rays of his hip showed no fracture. He is able to walk with physical therapy. The patient refuses to go to care home home. He does have a bucket turner at home. His pain is well controlled. An echo showed normal ejection fraction, which is significantly improved from previous echo. We did order some Lasix for fluid overload. The patient also have ultrasound pending of his leg if negative can be discharged today. DISCHARGE CONDITION: Stable. DISCHARGE INSTRUCTIONS: The patient is to follow up with PCP as outpatient. The patient is to return hospital for worsening condition or symptoms including chest pain or shortness of breath. The patient is to walk with front wheel walker. The patient ambulated at all times with assistance. DISCHARGE DIAGNOSES: 1. Fall. 2. Diabetes. 3. Congestive heart failure acute on chronic (diastolic dysfunction). 4. Hypertension. 5. History of atrial fibrillation. 6. History of heroin abuse on methadone. TIME SPENT ON DISCHARGE: Greater than 35 minutes. Justus Villa MD DR: JULIO JOB#: [id number] CC:
[2016-09-23] MEDS: Digoxin 0.125mg tab ORAL SCH (08:04)
[2016-09-23] MEDS: Furosemide 40mg tab ORAL SCH (08:05)
[2016-09-23] MEDS: Heparin 5000 units/ml inj SUBQ SCH (08:07)
[2016-09-23] MEDS: Vitamin A&D Oint 2oz Tube TOPIC SCH (08:10)
[2016-09-23 08:13] VITALS: BP 100/60
[2016-09-23 11:47] VITALS: BP 102/58
--- NOTE | 2016-09-25 17:08 | Diagnostic Imaging Report ---
APPROVED REPORT CPT Code: 47781 Present Symptoms Shortness of breath BILATERAL: Imaging reveals a patent deep venous system bilaterally. There is no evidence of thrombus within the femoral, popliteal or tibial segments. The greater saphenous veins are also within normal limits. Doppler indicates normal spontaneous flow within these segments.
== END 2016-09-23 13:00 | disposition home or self-care (01) | DRG 198 ==
LOC: ENRESERVDT → ENRESERVTM → EMR 10:52 → EDBEDREQ 13:50 → 3E 15:23 → EDBEDREQ 17:02 → 2E 18:31
DX: R07.89 Other chest pain (principal); I25.5 Ischemic cardiomyopathy; I50.33 Acute on chronic diastolic (congestive) heart failure; I27.2 Other secondary pulmonary hypertension; J44.9 Chronic obstructive pulmonary disease, unspecified; I48.91 Unspecified atrial fibrillation; F11.20 Opioid dependence, uncomplicated; M25.552 Pain in left hip; I10 Essential (primary) hypertension; Z91.81 History of falling; E11.9 Type 2 diabetes mellitus without complications; F19.21 Other psychoactive substance dependence, in remission; F17.200 Nicotine dependence, unspecified, uncomplicated
CPT/HCPCS: 36415; 71010; 72170; 73502; 80048; 80053; 80162; 80300; 82550; 82553; 83880; 84484; 85007; 85025; 87070; 87081; 87205; 93005; 93306; 93970; 94640; 94760

== ENCOUNTER 2016-09-29 18:17 | Inpatient (IN) | payer OTHER, MEDICARE ==
[~2016-09-29] VITALS: Ht 167.6 cm; Wt 50.8 kg
[2016-09-29 18:35] VITALS: BP 101/63
[2016-09-29] MEDS: Ipratropium 0.02% Inh Soln 2.5ml UD HHN SCH ×3 (18:41→19:11)
[2016-09-29] MEDS: Albuterol ud Inhalation HHN SCH ×3 (18:41→19:11)
[2016-09-29] MEDS ORDERED: Azithromycin 500 MG in D5W 275 ML IVPB SCH (18:45)
[2016-09-29] MEDS ORDERED: Azithromycin Inj IV ONE (19:06)
--- NOTE | 2016-09-29 19:25 | Emergency Room Report ---
History of Present Illness General Chief Complaint: Dyspnea/Respdistress Source: Patient, Medical Record, EMS Present Illness HPI 71 YO M BIBEMS for chest tightness, SOB, cough for 2-3 days. EMS noted diminished lungs sounds but vitals were stable so was not given nebs. Patient states he left AMA from [facility] recently but EMR shows DC after admission 09/19- for fall. Patient known to have HTN, CHF and Atrial fib. Allergies: Coded Allergies: No Known Allergies (Unverified , 02/25/16) Patient History Past Medical History: see triage record, old chart reviewed Past Surgical History: none, unable to obtain Pertinent Family History: none Social History: Reports: smoking Reviewed Nursing Documentation: PMH: Agreed, PSxH: Agreed Nursing Documentation-PMH Past Medical History: No History, Except For Hx Cardiac Problems: Yes Hx Hypertension: Yes Hx Pacemaker: No Hx Asthma: Yes Hx COPD: Yes Hx Diabetes: Yes Hx Cancer: No Hx Gastrointestinal Problems: No Hx Neurological Problems: No Review of Systems All Other Systems: negative except mentioned in HPI Physical Exam Vital Signs Date Time Temp Pulse Resp B/P Pulse Ox O2 Delivery O2 Flow Rate FiO2 09/29/16 18:16 97.9 78 20 101/63 95 Nasal Cannula 2.0 Sp02 EP Interpretation: reviewed, normal General Appearance: normal inspection, well appearing, no apparent distress, alert, GCS 15, non-toxic, cachetic Head: normocephalic, atraumatic Eyes: bilateral eye EOMI, bilateral eye PERRL ENT: normal ENT inspection, hearing grossly normal, normal voice Neck: normal inspection, full range of motion, supple, no bony tend Respiratory: normal inspection, no respiratory distress, no retraction, no accessory muscle use, no wheezing, decreased breath sounds Cardiovascular #1: regular rate, rhythm, no edema Gastrointestinal: normal inspection, normal bowel sounds, non tender, soft, no guarding, no hernia Genitourinary: no CVA tenderness Musculoskeletal: normal inspection, back normal, normal range of motion, Cassi' s Sign negative Neurologic: normal inspection, alert, oriented x3, responsive, airplane electrical repairer III-XII nml as tested, motor strength/tone normal, speech normal Psychiatric: normal inspection, judgement/insight normal, mood/affect normal Skin: normal inspection, normal color, no rash Medical Decision Making Medicare Attestation I Patrick Carpenter MD hereby attest that the medical record entry for date of service, 08/09/16 accurately reflects signatures/notations that I made in my capacity as MD when I treated/diagnosed the above listed Medicare beneficiary. I attest that this information is true, accurate and complete to the best of my knowledge. I understand that any falsification, omission, or concealment of material fact may subject me to administrative, civil, or criminal liability. This patient warrants hospital admission for extreme of age and has a condition that cannot be treated as outpatient. Diagnostic Impression: Primary Impression: Dyspnea Qualified Codes: R06.00 - Dyspnea, unspecified Additional Impression: Pneumonia Qualified Codes: J18.9 - Pneumonia, unspecified organism ER Course 71 YO M with dyspnea. VSS. Afebrile. DDx includes COPD exac, acute on chronic CHF, CAD, PNA PLAN: Nebs, steroids, IV azithro, Lasix, reassess CXR significant for interval development of left lower lobe PNA Additional Rocephin added to IV Abx Labs: No leuks. H&H stable. Troponin 0. Rest of CMP pending Endorsed to Dr Ruffin at 734pm EKG Diagnostic Results Rate: other - 1st degree AV block with PVCs Rhythm: NSR ST Segments: no acute changes ASA given to the pt in ED: No Rhythm Strip Diag. Results EP Interpretation: yes Rate: 83 Rhythm: NSR, no ectopy Chest X-Ray Diagnostic Results EP Interpretation: Yes Findings: no effusion, no pneumothorax, no acute cardiopulmonary disease, other - interval development of left lung infiltrater Number of Views: 1 Last Vital Signs Date Time Temp Pulse Resp B/P Pulse Ox O2 Delivery O2 Flow Rate FiO2 09/29/16 19:09 86 23 94 Nasal Cannula 4.0 09/29/16 18:16 97.9 101/63 Disposition: ADMITTED INPATIENT Condition: Serious Referrals: SAMARA RUFFIN M.D. (PCP) PATRICK CARPENTER M.D. Sep 29, 2016 19:24
[2016-09-29 20:09] LABS: MEAN CORPUSCULAR HEMOGLOBIN 28.4 PG (27.0-31.0); MEAN CORPUSCULAR HGB CONC 30.5 G/DL (32.0-36.0); MEAN CORPUSCULAR VOLUME 93 FL (80-99); PLATELET COUNT 123 K/UL (150-450); RED BLOOD COUNT 5.15 M/UL (4.70-6.10); RED CELL DISTRIBUTION WIDTH 13.9 % (11.6-14.8); WHITE BLOOD COUNT 3.2 K/UL (4.8-10.8)
[2016-09-29 20:15] VITALS: BP 105/63
[2016-09-29 20:23] LABS: TROPONIN I < 0.30 ng/mL (<=0.30)
[2016-09-29 20:33] LABS: ALANINE AMINOTRANSFERASE 6 U/L (3-41); ALBUMIN/GLOBULIN RATIO 0.6 (1.0-2.7); ANION GAP 17 (5-15); ASPARTATE AMINO TRANSFERASE 27 U/L (5-40); CARBON DIOXIDE 27 mEQ/L (20-30); CHLORIDE 90 mEQ/L (98-107); CREATININE 0.6 mg/dL (0.7-1.2); GLOMERULAR FILTRATION RATE > 60 mL/min (>60); HEMOLYSIS 1; POTASSIUM 3.2 mEQ/L (3.4-4.9); SODIUM 134 mEQ/L (135-145); TOTAL PROTEIN 7.9 g/dL (6.6-8.7)
[2016-09-29] MEDS: cefTRIAXone 1 GM in NS 55 ML IVPB ONE ×2 (20:36→21:16)
[2016-09-29 20:43] LABS: CKMB < 1.5 ng/mL (< 6.7)
[2016-09-29 21:18] LABS: ANISOCYTOSIS 1+; BAND NEUTROPHILS % (MANUAL) 2 % (0-8); BASOPHILS % (MANUAL) 1 % (0-2); EOSINOPHILS % (MANUAL) 1 % (0-3); LYMPHOCYTES % (MANUAL) 37 % (20-45); NEUTROPHILS % (MANUAL) 49 % (45-75); PLATELET ESTIMATE DECREASED; PLATELET MORPHOLOGY NORMAL; TOTAL CELLS COUNTED 100
[2016-09-29] MEDS ORDERED: DuoNeb 0.5-3(2.5)mg/3ml neb HHN PRN (22:15)
[2016-09-29] MEDS: Morphine Sulfate 2mg/ml Inj IVP PRN (23:02)
[2016-09-30] VITALS: BP 94/61
[2016-09-30] MEDS: Albuterol ud Inhalation HHN SCH ×4 (01:42→19:47)
[2016-09-30] MEDS: Morphine Sulfate 4mg/ml Inj IVP PRN ×3 (03:34→12:35)
[2016-09-30 04:00] VITALS: BP 96/63
[2016-09-30] MEDS: Ipratropium 0.02% Inh Soln 2.5ml UD HHN SCH (07:35)
[2016-09-30 08:04] VITALS: BP 97/57
[2016-09-30] MEDS: Solu-MEDROL 40mg Inj IVP SCH (08:09)
[2016-09-30 08:31] LABS: MEAN CORPUSCULAR HEMOGLOBIN 28.7 PG (27.0-31.0); MEAN CORPUSCULAR HGB CONC 31.3 G/DL (32.0-36.0); MEAN CORPUSCULAR VOLUME 92 FL (80-99); PLATELET COUNT 126 K/UL (150-450); RED BLOOD COUNT 4.62 M/UL (4.70-6.10); RED CELL DISTRIBUTION WIDTH 13.9 % (11.6-14.8); WHITE BLOOD COUNT 2.7 K/UL (4.8-10.8)
[2016-09-30 08:49] LABS: ANION GAP 11 (5-15); CALCIUM 8.2 mg/dL (8.6-10.2); CARBON DIOXIDE 33 mEQ/L (20-30); CHLORIDE 95 mEQ/L (98-107); CREATININE 0.6 mg/dL (0.7-1.2); GLOMERULAR FILTRATION RATE > 60 mL/min (>60); HEMOLYSIS 3; SODIUM 139 mEQ/L (135-145)
[2016-09-30] MEDS: Heparin 5000 units/ml inj SUBQ SCH ×2 (09:00→22:45)
--- NOTE | 2016-09-30 10:53 | History & Physical ---
History and Physical History & Physicial HISTORY AND PHYSICAL Patient: ERI BEAVERS [facility] Rec #: [id number] Patient No.: [id number] Date of Service:09/30/16 DATE OF ADMISSION: 09/29/16 CHIEF COMPLAINT: SOB HISTORY OF PRESENT ILLNESS: This is a 69 year old male with history of CHF ( Diastolic dysfunction), COPD, DM, HTN, Constipation 2/2 methadone, atrial flutter, recurrent falls, on methodone who presents to the hospital for SOB x 2-3 days. He denies chest pain. He denies LE edema. He does have a cough. He states he takes all his medications. He was recently admitted for a fall. PAST MEDICAL HISTORY: Significant for: (I50.22) Chronic systolic (congestive) heart failure (J44.9) Chronic obstructive pulmonary disease, unspecified (E11.9) Type 2 diabetes mellitus without complications (I10) Essential (primary) hypertension (I89.0) Lymphedema, not elsewhere classified (I48.92) Unspecified atrial flutter (F11.20) Opioid dependence, uncomplicated (E44.0) Moderate protein-calorie malnutrition (S22.080S) Wedge compression fracture of T11-T12 vertebra, sequela CURRENT MEDICATIONS: Albuterol Sulfate (Ventolin HFA) 108 (90 Base) MCG/ACT Inhalation Aerosol Solution Calcium Carbonate-Vitamin D (Calcium) 500-125 MG-UNIT Oral Tablet Digoxin 125 MCG Oral Tablet Folic Acid 1 MG Oral Tablet Furosemide (Lasix) 40 MG Oral Tablet Lisinopril 2.5 MG Oral Tablet Methadone HCl 40 MG Oral Tablet Soluble Metoprolol Tartrate 25 MG Oral Tablet Multivitamin Adult Oral Tablet Naproxen Sodium 220 MG Oral Capsule Polyethylene Glycol 3350 (MiraLax) Oral Powder Potassium Chloride Microencapsulated Crystals CR (Potassium Chloride Leta ER) 10 MEQ Oral Tablet Extended Release Sennosides (Senna) 8.6 MG Oral Tablet Sildenafil Citrate (Pulmonary Hypertension) (Revatio) 20 MG Oral Tablet Thiamine HCl 100 MG Oral Tablet ALLERGIES: No known drug allergies. SOCIAL HISTORY: The patient is single and is disabled. The patient admits to tobacco use of one pack per day. The patient states he quit drinking alcohol six months ago. REVIEW OF SYSTEMS: 12 pt ROS neg except above positives PHYSICAL EXAMINATION: Last 24 Hour Vital Signs Date Time Temp Pulse Resp B/P Pulse Ox O2 Delivery O2 Flow Rate FiO2 10/01/16 00:59 70 16 99 Nasal Cannula 2.0 28 10/01/16 00:52 68 14 93 Nasal Cannula 2.0 28 10/01/16 00:52 28 10/01/16 00:00 97.0 73 20 106/67 96 Nasal Cannula 2.0 09/30/16 20:24 97.6 09/30/16 20:10 66 18 97 Nasal Cannula 2.0 28 09/30/16 20:00 70 09/30/16 20:00 97.6 68 21 110/64 100 Room Air 09/30/16 19:51 Nasal Cannula 2.0 28 09/30/16 19:50 96 Nasal Cannula 2.0 28 09/30/16 19:49 66 16 96 Nasal Cannula 2.0 28 09/30/16 19:49 28 09/30/16 16:00 83 09/30/16 16:00 97.8 81 20 85/57 97 Room Air 09/30/16 13:05 97.0 09/30/16 13:00 Nasal Cannula 3.0 32 09/30/16 13:00 Nasal Cannula 3.0 32 09/30/16 11:59 97.0 74 20 101/47 92 Nasal Cannula 3.0 09/30/16 08:04 97.7 82 20 97/57 95 Nasal Cannula 3.0 09/30/16 08:00 74 09/30/16 07:25 75 18 97 Nasal Cannula 3.0 32 09/30/16 07:20 74 18 95 Nasal Cannula 3.0 32 09/30/16 07:20 95 Nasal Cannula 3.0 32 09/30/16 07:20 Nasal Cannula 3.0 32 09/30/16 04:00 97.9 77 16 96/63 96 Nasal Cannula 2.0 09/30/16 01:51 81 20 97 Nasal Cannula 3.0 32 09/30/16 01:43 83 18 94 Nasal Cannula 3.0 32 09/30/16 01:40 95 Nasal Cannula 3.0 32 09/30/16 01:40 Nasal Cannula 3.0 32 GENERAL: The patient is cachectic, thin-appearing, and disheveled male in no apparent distress. HEENT: Eyes - pupils are equal and responsive to light and accommodation. Extraocular movements are intact. NECK: Supple without lymphadenopathy. CHEST: Lungs are clear to auscultation bilaterally without wheezes or rales. CARDIOVASCULAR: Regular rhythm and rate. S1 and S2. No murmurs, rubs, or gallops. ABDOMEN: Soft, nontender, and nondistended. Positive bowel sounds. No evidence of hepatosplenomegaly currently. No rebound. No guarding noted. EXTREMITIES: Negative for clubbing, cyanosis, or or edema. RECTAL/GENITAL: Refused. NEUROLOGIC: awake and can move all extremities. LABORATORY STUDIES: Laboratory Tests Test 09/30/16 07:05 White Blood Count 2.7 K/UL (4.8-10.8) L Red Blood Count 4.62 M/UL (4.70-6.10) L Hemoglobin 13.3 G/DL (14.2-18.0) L Hematocrit 42.5 % (42.0-52.0) Mean Corpuscular Volume 92 FL (80-99) Mean Corpuscular Hemoglobin 28.7 PG (27.0-31.0) Mean Corpuscular Hemoglobin Concent 31.3 G/DL (32.0-36.0) L Red Cell Distribution Width 13.9 % (11.6-14.8) Platelet Count 126 K/UL (150-450) L Mean Platelet Volume 8.0 FL (6.5-10.1) Neutrophils (%) (Auto) % (45.0-75.0) Lymphocytes (%) (Auto) % (20.0-45.0) Monocytes (%) (Auto) % (1.0-10.0) Eosinophils (%) (Auto) % (0.0-3.0) Basophils (%) (Auto) % (0.0-2.0) Differential Total Cells Counted 100 Neutrophils % (Manual) 42 % (45-75) L Lymphocytes % (Manual) 43 % (20-45) Monocytes % (Manual) 15 % (1-10) H Eosinophils % (Manual) 0 % (0-3) Basophils % (Manual) 0 % (0-2) Band Neutrophils 0 % (0-8) Platelet Estimate Decreased L Platelet Morphology Normal Red Blood Cell Morphology Normal Sodium Level 139 mEQ/L (135-145) Potassium Level 3.0 mEQ/L (3.4-4.9) L Chloride Level 95 mEQ/L (98-107) L Carbon Dioxide Level 33 mEQ/L (20-30) H Anion Gap 11 (5-15) Blood Urea Nitrogen 11 mg/dL (7-23) Creatinine 0.6 mg/dL (0.7-1.2) L Estimat Glomerular Filtration Rate > 60 mL/min (>60) Glucose Level 76 mg/dL (74-106) Calcium Level 8.2 mg/dL (8.6-10.2) L CXR - possible RLL infiltrate ASSESSMENT: 1. SOB - possibly secondary to PNA vs Viral URI vs COPD exacerbation 2. DM2 3. HTN 4. Congestive heart failure w/ diastolic dysfunction, Chronic 5. Diabetes type 2. 6. Hypertension. 7. Atrial fibrillation. 8. On methadone Plan Telemetry Pulm consult with Dr. Romulo Lan and Ash Young as needed Solumedrol 40mg IV Daily Diabetic diet check influenza SAMARA RUFFIN M.D. Sep 30, 2016 10:53
[2016-09-30 11:19] LABS: BAND NEUTROPHILS % (MANUAL) 0 % (0-8); BASOPHILS % (MANUAL) 0 % (0-2); EOSINOPHILS % (MANUAL) 0 % (0-3); LYMPHOCYTES % (MANUAL) 43 % (20-45); NEUTROPHILS % (MANUAL) 42 % (45-75); PLATELET ESTIMATE DECREASED; PLATELET MORPHOLOGY NORMAL; TOTAL CELLS COUNTED 100
[2016-09-30 11:59] VITALS: BP 101/47
[2016-09-30] MEDS ORDERED: Amikacin Rx to dose MISC PRN (13:00)
[2016-09-30] MEDS ORDERED: Promethazine/Codeine 5ml UD ORAL PRN (13:00)
[2016-09-30 16:00] VITALS: BP 85/57
[2016-09-30] MEDS: Vancomycin 1250mg/D5W 275ml IVPB SCH ×2 (18:02)
[2016-09-30] MEDS: Piperacillin/Tazobactam 3.375 GM in NS 110 ML IVPB SCH (19:09)
[2016-09-30] MEDS: Morphine Sulfate 2mg/ml Inj IVP PRN (19:54)
[2016-09-30 20:00] VITALS: BP 110/64
[2016-10-01] VITALS: BP 106/67
[2016-10-01] MEDS: Morphine Sulfate 4mg/ml Inj IVP PRN ×3 (00:45→14:38)
[2016-10-01] MEDS: Piperacillin/Tazobactam 3.375 GM in NS 110 ML IVPB SCH ×3 (00:46→16:41)
[2016-10-01] MEDS: Albuterol ud Inhalation HHN SCH ×4 (00:51→19:00)
[2016-10-01 04:00] VITALS: BP 100/61
[2016-10-01 07:59] VITALS: BP 95/60
[2016-10-01] MEDS: Solu-MEDROL 40mg Inj IVP SCH (09:45)
[2016-10-01] MEDS: Ipratropium 0.02% Inh Soln 2.5ml UD HHN SCH (09:58)
[2016-10-01] MEDS: Morphine Sulfate 2mg/ml Inj IVP PRN (10:02)
[2016-10-01] MEDS: Heparin 5000 units/ml inj SUBQ SCH ×2 (10:06→20:03)
[2016-10-01 11:26] VITALS: BP 97/58
--- NOTE | 2016-10-01 12:13 | Consultation ---
History of Present Illness General Date patient seen: Sep 30, 2016 Chief Complaint: Dyspnea/Respdistress Referring physician: Dr. Villa Reason for Consultation: dyspnea Present Illness HPI 71 year old male with cachexia, end stage heart disease, cirrhosis, on Methasone , presented to ER with CC of chest tightness, SOB, cough for 2-3 days. EMS noted diminished lungs sounds but vitals were stable so was not given nebs. I was asked to manage his emphysema and possible pneumonia. Allergies: Coded Allergies: No Known Allergies (Unverified , 02/25/16) Medication History Scheduled Digoxin* (Lanoxin*), 0.125 MG ORAL DAILY Folic Acid* (Folic Acid*), 1 MG ORAL DAILY, (Reported) Furosemide* (Lasix*), 40 MG ORAL DAILY, (Reported) Methadone Hcl* (Methadone*), 40 MG PO DAILY, (Reported) Methocarbamol* (Robaxin*), 500 MG PO TID Metoprolol Tartrate (Metoprolol Tartrate), 12.5 MG ORAL Q12HR Multivitamin (Multi Vitamin Daily), 1 TAB ORAL DAILY, (Reported) Potassium Chloride (Potassium Chloride), 10 MEQ PO DAILY, (Reported) Sildenafil Citrate (Sildenafil), 20 MG ORAL TID, (Reported) Thiamine Hcl (Thiamine Hcl), 100 MG PO DAILY, (Reported) Scheduled PRN Naproxen (Ec-Naprosyn), 220 MG PO TID PRN for For Pain, (Reported) Tramadol Hcl* (Ultram*), 50 MG ORAL Q6H PRN for For Pain, (Reported) Patient History Healthcare decision maker Resuscitation status Full Code Advanced Directive on File No Review of Systems All Other Systems: negative except mentioned in HPI Physical Exam General Appearance: WD/WN Lines, tubes and drains: peripheral, central line HEENT: normocephalic, atraumatic Neck: non-tender Respiratory/Chest: chest wall non-tender, lungs clear Cardiovascular/Chest: normal peripheral pulses, normal rate Abdomen: normal bowel sounds, non tender Last 24 Hour Vital Signs Date Time Temp Pulse Resp B/P Pulse Ox O2 Delivery O2 Flow Rate FiO2 10/01/16 11:26 96.8 71 20 97/58 93 Nasal Cannula 3.0 10/01/16 10:16 66 18 97 Nasal Cannula 3.0 10/01/16 09:50 67 18 97 Nasal Cannula 3.0 10/01/16 07:59 97.3 64 20 95/60 95 Nasal Cannula 3.0 10/01/16 07:47 95 Nasal Cannula 2.0 10/01/16 07:47 Nasal Cannula 2.0 10/01/16 07:46 Nasal Cannula 10/01/16 07:46 Nasal Cannula 10/01/16 04:00 72 10/01/16 04:00 97.0 68 20 100/61 94 Nasal Cannula 2.0 10/01/16 00:59 70 16 99 Nasal Cannula 2.0 28 10/01/16 00:52 68 14 93 Nasal Cannula 2.0 28 10/01/16 00:52 28 10/01/16 00:00 97.0 73 20 106/67 96 Nasal Cannula 2.0 10/01/16 00:00 78 09/30/16 20:24 97.6 09/30/16 20:10 66 18 97 Nasal Cannula 2.0 28 09/30/16 20:00 70 09/30/16 20:00 97.6 68 21 110/64 100 Room Air 09/30/16 19:51 Nasal Cannula 2.0 28 09/30/16 19:50 96 Nasal Cannula 2.0 28 09/30/16 19:49 66 16 96 Nasal Cannula 2.0 28 09/30/16 19:49 28 09/30/16 16:00 83 09/30/16 16:00 97.8 81 20 85/57 97 Room Air 09/30/16 13:05 97.0 09/30/16 13:00 Nasal Cannula 3.0 32 09/30/16 13:00 Nasal Cannula 3.0 32 Intake and Output 09/30/16 10/01/16 19:00 07:00 Intake Total 480 ml 370.0 ml Output Total 200 ml 650 ml Balance 280 ml -280.0 ml Intake Oral 480 ml 260 ml IV Total 110.0 ml Output Urine Total 200 ml 650 ml # Voids 2 Height (Feet): 5 Height (Inches): 6.00 Weight (Pounds): 112 Medications Current Medications Medications (Trade) Dose Ordered Sig/Aimee Route PRN Reason Start Time Stop Time Status Last Admin Dose Admin Acetaminophen (Tylenol) 650 mg Q4H PRN ORAL Mild Pain (Pain Scale 1-3) 09/29/16 22:15 10/29/16 22:14 Albuterol Sulfate (Proventil) 2.5 mg Q6HRT HHN 09/30/16 01:00 10/05/16 00:59 10/01/16 00:51 Albuterol/ Ipratropium (DuoNeb 0.5-3(2.5)mg/3ml) 3 ml Q6H PRN HHN Shortness of Breath 09/29/16 22:15 10/04/16 22:14 Dextrose (Dextrose 50%) STAT PRN IV Hypoglycemia 09/29/16 22:15 10/29/16 22:14 Heparin Sodium (Porcine) (Heparin 5000 units/ml) 5,000 units EVERY 12 HOURS SUBQ 09/30/16 09:00 10/30/16 08:59 10/01/16 10:06 Ipratropium [place] (Atrovent) 0.5 mcg DAILY HHN 09/30/16 09:00 10/05/16 08:59 10/01/16 09:58 Methadone HCl (Methadone HCl) 40 mg QPM ORAL 09/30/16 17:30 10/07/16 17:29 09/30/16 16:41 Methylprednisolone Sodium Succinate 40 mg 40 mg DAILY IVP 09/30/16 09:00 10/30/16 08:59 10/01/16 09:45 Morphine Sulfate (Morphine Sulfate) 2 mg Q4H PRN IVP Moderate Pain (Pain Scale 4-6) 09/29/16 22:15 10/06/16 22:14 10/01/16 10:02 Morphine Sulfate (Morphine Sulfate) 4 mg Q4H PRN IVP Severe Pain (Pain Scale 7-10) 09/29/16 22:15 10/06/16 22:14 10/01/16 04:50 Piperacillin Sod/ Tazobactam Sod/ Sodium Chloride (Zosyn/Sodium Chloride) 110 ml @ 27.5 mls/hr Q8HR@0000,0800,1600 IVPB 09/30/16 16:00 10/07/16 15:59 10/01/16 08:15 Promethazine HCl/ Codeine 5 ml 5 ml Q4H PRN ORAL For Cough 09/30/16 13:00 10/30/16 12:59 Vancomycin HCl (Vanco rx to dose) 1 ea DAILY PRN MISC Per rx protocol 09/30/16 13:00 10/30/16 12:59 Vancomycin HCl/ Dextrose (Vancomycin/D5W) 275 ml @ 183.333 mls/hr Q24H IVPB 09/30/16 14:30 10/05/16 14:29 09/30/16 18:02 Assessment/Plan Problem List: (1) Pneumonia ICD Codes: J18.9 - Pneumonia, unspecified organism SNOMED: 447476680 Qualifiers: Qualified Codes: J18.9 - Pneumonia, unspecified organism (2) COPD (chronic obstructive pulmonary disease) ICD Codes: J44.9 - Chronic obstructive pulmonary disease, unspecified SNOMED: 06087017 (3) Venous stasis ulcer ICD Codes: I83.009 - Varicose veins of unsp lower extremity w ulcer of unsp site SNOMED: 668418939 Assessment/Plan IV antibiotics respiratory treatment chest pt check cultures rule out malignancy EYAL HAQUE Oct 01, 2016 12:13
--- NOTE | 2016-10-01 12:14 | Pulmonology Progress Note ---
Assessment/Plan Problems: (1) Pneumonia (2) COPD (chronic obstructive pulmonary disease) (3) Venous stasis ulcer Assessment/Plan iv antibiotics sputum pending med/surg malignancy work up Subjective ROS Limited/Unobtainable: No Interval Events: doing better Respiratory: Reports: no symptoms Cardiovascular: Reports: no symptoms Gastrointestinal/Abdominal: Reports: no symptoms Genitourinary: Reports: no symptoms Allergies: Coded Allergies: No Known Allergies (Unverified , 02/25/16) Objective Last 24 Hour Vital Signs Date Time Temp Pulse Resp B/P Pulse Ox O2 Delivery O2 Flow Rate FiO2 10/01/16 11:26 96.8 71 20 97/58 93 Nasal Cannula 3.0 10/01/16 10:16 66 18 97 Nasal Cannula 3.0 10/01/16 09:50 67 18 97 Nasal Cannula 3.0 10/01/16 07:59 97.3 64 20 95/60 95 Nasal Cannula 3.0 10/01/16 07:47 95 Nasal Cannula 2.0 10/01/16 07:47 Nasal Cannula 2.0 10/01/16 07:46 Nasal Cannula 10/01/16 07:46 Nasal Cannula 10/01/16 04:00 72 10/01/16 04:00 97.0 68 20 100/61 94 Nasal Cannula 2.0 10/01/16 00:59 70 16 99 Nasal Cannula 2.0 28 10/01/16 00:52 68 14 93 Nasal Cannula 2.0 28 10/01/16 00:52 28 10/01/16 00:00 97.0 73 20 106/67 96 Nasal Cannula 2.0 10/01/16 00:00 78 09/30/16 20:24 97.6 09/30/16 20:10 66 18 97 Nasal Cannula 2.0 28 09/30/16 20:00 70 09/30/16 20:00 97.6 68 21 110/64 100 Room Air 09/30/16 19:51 Nasal Cannula 2.0 28 09/30/16 19:50 96 Nasal Cannula 2.0 28 09/30/16 19:49 66 16 96 Nasal Cannula 2.0 28 09/30/16 19:49 28 09/30/16 16:00 83 09/30/16 16:00 97.8 81 20 85/57 97 Room Air 09/30/16 13:05 97.0 09/30/16 13:00 Nasal Cannula 3.0 32 09/30/16 13:00 Nasal Cannula 3.0 32 Intake and Output 09/30/16 10/01/16 19:00 07:00 Intake Total 480 ml 370.0 ml Output Total 200 ml 650 ml Balance 280 ml -280.0 ml Intake Oral 480 ml 260 ml IV Total 110.0 ml Output Urine Total 200 ml 650 ml # Voids 2 General Appearance: WD/WN HEENT: normocephalic Respiratory/Chest: chest wall non-tender, lungs clear Cardiovascular: normal peripheral pulses, normal rate Abdomen: normal bowel sounds, soft, non tender Skin: no rash Neurologic/Psychiatric: heat regulator II-XII grossly normal Microbiology Date/Time Source Procedure Growth Status 09/30/16 03:44 Nasal Nares Influenza Types A,B Antigen (SHAWNEE) - Final Complete 09/29/16 19:50 Nasal Nares MRSA Culture - Final Staphylococcus Aureus - Mrsa Complete Current Medications Medications (Trade) Dose Ordered Sig/Aimee Route PRN Reason Start Time Stop Time Status Last Admin Dose Admin Acetaminophen (Tylenol) 650 mg Q4H PRN ORAL Mild Pain (Pain Scale 1-3) 09/29/16 22:15 10/29/16 22:14 Albuterol Sulfate (Proventil) 2.5 mg Q6HRT HHN 09/30/16 01:00 10/05/16 00:59 10/01/16 00:51 Albuterol/ Ipratropium (DuoNeb 0.5-3(2.5)mg/3ml) 3 ml Q6H PRN HHN Shortness of Breath 09/29/16 22:15 10/04/16 22:14 Dextrose (Dextrose 50%) STAT PRN IV Hypoglycemia 09/29/16 22:15 10/29/16 22:14 Heparin Sodium (Porcine) (Heparin 5000 units/ml) 5,000 units EVERY 12 HOURS SUBQ 09/30/16 09:00 10/30/16 08:59 10/01/16 10:06 Ipratropium [place] (Atrovent) 0.5 mcg DAILY HHN 09/30/16 09:00 10/05/16 08:59 10/01/16 09:58 Methadone HCl (Methadone HCl) 40 mg QPM ORAL 09/30/16 17:30 10/07/16 17:29 09/30/16 16:41 Methylprednisolone Sodium Succinate 40 mg 40 mg DAILY IVP 09/30/16 09:00 10/30/16 08:59 10/01/16 09:45 Morphine Sulfate (Morphine Sulfate) 2 mg Q4H PRN IVP Moderate Pain (Pain Scale 4-6) 09/29/16 22:15 10/06/16 22:14 10/01/16 10:02 Morphine Sulfate (Morphine Sulfate) 4 mg Q4H PRN IVP Severe Pain (Pain Scale 7-10) 09/29/16 22:15 10/06/16 22:14 10/01/16 04:50 Piperacillin Sod/ Tazobactam Sod/ Sodium Chloride (Zosyn/Sodium Chloride) 110 ml @ 27.5 mls/hr Q8HR@0000,0800,1600 IVPB 09/30/16 16:00 10/07/16 15:59 10/01/16 08:15 Promethazine HCl/ Codeine 5 ml 5 ml Q4H PRN ORAL For Cough 09/30/16 13:00 10/30/16 12:59 Vancomycin HCl (Vanco rx to dose) 1 ea DAILY PRN MISC Per rx protocol 09/30/16 13:00 10/30/16 12:59 Vancomycin HCl/ Dextrose (Vancomycin/D5W) 275 ml @ 183.333 mls/hr Q24H IVPB 09/30/16 14:30 10/05/16 14:29 09/30/16 18:02 EYAL HAQUE Oct 01, 2016 12:14
[2016-10-01] MEDS: Vancomycin 1250mg/D5W 275ml IVPB SCH ×2 (14:42)
[2016-10-01 16:00] VITALS: BP 97/52
--- NOTE | 2016-10-01 18:45 | Internal Med Progress Note ---
Subjective Date of Service: Oct 01, 2016 Physician Name Velma Welch Attending Physician Justus Villa M.D. Current Medications Medications (Trade) Dose Ordered Sig/Aimee Route PRN Reason Start Time Stop Time Status Last Admin Dose Admin Acetaminophen (Tylenol) 650 mg Q4H PRN ORAL Mild Pain (Pain Scale 1-3) 09/29/16 22:15 10/29/16 22:14 Albuterol Sulfate (Proventil) 2.5 mg Q6HRT HHN 09/30/16 01:00 10/05/16 00:59 10/01/16 13:10 Albuterol/ Ipratropium (DuoNeb 0.5-3(2.5)mg/3ml) 3 ml Q6H PRN HHN Shortness of Breath 09/29/16 22:15 10/04/16 22:14 Dextrose (Dextrose 50%) STAT PRN IV Hypoglycemia 09/29/16 22:15 10/29/16 22:14 Heparin Sodium (Porcine) (Heparin 5000 units/ml) 5,000 units EVERY 12 HOURS SUBQ 09/30/16 09:00 10/30/16 08:59 10/01/16 10:06 Ipratropium [place] (Atrovent) 0.5 mcg DAILY HHN 09/30/16 09:00 10/05/16 08:59 10/01/16 09:58 Methadone HCl (Methadone HCl) 40 mg QPM ORAL 09/30/16 17:30 10/07/16 17:29 10/01/16 16:41 Methylprednisolone Sodium Succinate 40 mg 40 mg DAILY IVP 09/30/16 09:00 10/30/16 08:59 10/01/16 09:45 Morphine Sulfate (Morphine Sulfate) 2 mg Q4H PRN IVP Moderate Pain (Pain Scale 4-6) 09/29/16 22:15 10/06/16 22:14 10/01/16 10:02 Morphine Sulfate (Morphine Sulfate) 4 mg Q4H PRN IVP Severe Pain (Pain Scale 7-10) 09/29/16 22:15 10/06/16 22:14 10/01/16 14:38 Piperacillin Sod/ Tazobactam Sod/ Sodium Chloride (Zosyn/Sodium Chloride) 110 ml @ 27.5 mls/hr Q8HR@0000,0800,1600 IVPB 09/30/16 16:00 10/07/16 15:59 10/01/16 16:41 Promethazine HCl/ Codeine 5 ml 5 ml Q4H PRN ORAL For Cough 09/30/16 13:00 10/30/16 12:59 Vancomycin HCl (Vanco rx to dose) 1 ea DAILY PRN MISC Per rx protocol 09/30/16 13:00 10/30/16 12:59 Vancomycin HCl/ Dextrose (Vancomycin/D5W) 275 ml @ 183.333 mls/hr Q24H IVPB 09/30/16 14:30 10/05/16 14:29 10/01/16 14:42 Allergies: Coded Allergies: No Known Allergies (Unverified , 02/25/16) ROS Limited/Unobtainable: No Constitutional: Reports: no symptoms HEENT: Reports: no symptoms Cardiovascular: Reports: no symptoms Respiratory: Reports: shortness of breath Genitourinary: Reports: no symptoms Neurologic/Psychiatric: Reports: no symptoms Subjective 71 YO M admitted with shortness of breath; now pneumonia. Cover for Int Med-Dr Villa. Objective Last Vital Signs Date Time Temp Pulse Resp B/P Pulse Ox O2 Delivery O2 Flow Rate FiO2 10/01/16 16:00 75 10/01/16 16:00 97.7 22 97/52 95 Nasal Cannula 2.0 10/01/16 00:59 28 General Appearance: alert, mild distress, thin EENT: PERRL/EOMI, normal ENT inspection Neck: non-tender, normal alignment, supple, normal inspection Cardiovascular: normal peripheral pulses, normal rate, regular rhythm, no gallop/murmur, no JVD Respiratory/Chest: decreased breath sounds, crackles/rales, rhonchi - bilaterally, expiratory wheezing Abdomen: normal bowel sounds, non tender, soft, no organomegaly, no mass Extremities: normal range of motion Neurologic: audio visual aide II-XII grossly normal Skin: normal pigmentation Laboratory Tests Test 10/01/16 12:40 Alpha Fetoprotein Pending Carcinoembryonic Antigen 2.5 ng/mL CA 19-9 Antigen 17.67 U/mL (< 37) Microbiology Date/Time Source Procedure Growth Status 09/30/16 03:44 Nasal Nares Influenza Types A,B Antigen (SHAWNEE) - Final Complete 09/29/16 19:50 Nasal Nares MRSA Culture - Final Staphylococcus Aureus - Mrsa Complete Intake and Output 09/30/16 10/01/16 19:00 07:00 Intake Total 480 ml 370.0 ml Output Total 200 ml 650 ml Balance 280 ml -280.0 ml Intake Oral 480 ml 260 ml IV Total 110.0 ml Output Urine Total 200 ml 650 ml # Voids 2 Assessment/Plan Problem List: (1) Diabetes mellitus Assessment & Plan: Due to solumedrol. (2) HTN (hypertension) (3) Atrial flutter (4) Opiate dependence, continuous Assessment & Plan: On methadone. (5) CHF (congestive heart failure) (6) COPD (chronic obstructive pulmonary disease) Assessment & Plan: See pulmonary note. Continue duoneb. (7) Pneumonia Assessment & Plan: See pulmonary note. Continue zosyn and vanco. Await sputum culture. (8) Dyspnea Status: progressing VELMA WELCH Oct 01, 2016 18:45
[2016-10-01] MEDS ORDERED: DuoNeb 0.5-3(2.5)mg/3ml neb HHN PRN (19:00)
[2016-10-01] MEDS ORDERED: Promethazine/Codeine 5ml UD ORAL PRN (19:00)
[2016-10-01 20:00] VITALS: BP 95/55
[2016-10-02] VITALS (7 sets, daily range): BP systolic 94–125; BP diastolic 53–81
[2016-10-02] MEDS: Piperacillin/Tazobactam 3.375 GM in NS 110 ML IVPB SCH ×2 (00:06→08:42)
[2016-10-02] MEDS: Albuterol ud Inhalation HHN SCH ×4 (01:12→18:50)
[2016-10-02] MEDS: Morphine Sulfate 4mg/ml Inj IVP PRN ×5 (02:22→22:50)
[2016-10-02 07:27] LABS: BASOPHILS % (AUTO) 0.8 % (0.0-2.0); EOSINOPHILS % (AUTO) 0.4 % (0.0-3.0); MEAN CORPUSCULAR HEMOGLOBIN 29.5 PG (27.0-31.0); MEAN CORPUSCULAR HGB CONC 31.4 G/DL (32.0-36.0); MEAN CORPUSCULAR VOLUME 94 FL (80-99); MONOCYTES % (AUTO) 10.8 % (1.0-10.0); NEUTROPHILS % (AUTO) 66.1 % (45.0-75.0); PLATELET COUNT 115 K/UL (150-450); RED BLOOD COUNT 4.19 M/UL (4.70-6.10); RED CELL DISTRIBUTION WIDTH 14.1 % (11.6-14.8); WHITE BLOOD COUNT 3.6 K/UL (4.8-10.8)
[2016-10-02 07:29] LABS: ANION GAP 5 (5-15); CALCIUM 8.8 mg/dL (8.6-10.2); CARBON DIOXIDE 37 mEQ/L (20-30); CHLORIDE 100 mEQ/L (98-107); CREATININE 0.6 mg/dL (0.7-1.2); GLOMERULAR FILTRATION RATE > 60 mL/min (>60); HEMOLYSIS 5; POTASSIUM 4.1 mEQ/L (3.4-4.9); SODIUM 142 mEQ/L (135-145)
[2016-10-02] MEDS: Heparin 5000 units/ml inj SUBQ SCH ×2 (09:00→20:52)
[2016-10-02] MEDS: Ipratropium 0.02% Inh Soln 2.5ml UD HHN SCH (09:28)
[2016-10-02] MEDS: Solu-MEDROL 40mg Inj IVP SCH (10:46)
--- NOTE | 2016-10-02 13:25 | Pulmonology Progress Note ---
Assessment/Plan Problems: (1) Pneumonia (2) COPD (chronic obstructive pulmonary disease) (3) Venous stasis ulcer Assessment/Plan feeling bettter tumor markers were negative iv antibiotics sputum pending med/surg MRSA nares Subjective ROS Limited/Unobtainable: No Constitutional: Reports: no symptoms HEENT: Repors: no symptoms Respiratory: Reports: no symptoms Cardiovascular: Reports: no symptoms Allergies: Coded Allergies: No Known Allergies (Unverified , 02/25/16) Objective Last 24 Hour Vital Signs Date Time Temp Pulse Resp B/P Pulse Ox O2 Delivery O2 Flow Rate FiO2 10/02/16 13:05 95 18 96 Nasal Cannula 3.0 10/02/16 13:00 95 18 89 Nasal Cannula 3.0 10/02/16 12:08 98.6 65 20 125/55 95 Room Air 10/02/16 08:10 98.4 105 18 120/53 95 Room Air 10/02/16 07:29 90 18 97 Nasal Cannula 3.0 10/02/16 07:29 93 18 89 Nasal Cannula 3.0 10/02/16 07:29 Nasal Cannula 2.0 10/02/16 07:29 89 Nasal Cannula 2.0 10/02/16 04:00 97.2 80 20 94/59 91 Nasal Cannula 2.0 10/02/16 01:15 73 18 98 Nasal Cannula 3.0 10/02/16 01:14 71 18 97 Nasal Cannula 3.0 10/02/16 00:00 96.9 79 18 120/81 90 Nasal Cannula 2.0 10/01/16 20:00 97.3 19 95/55 95 Nasal Cannula 2.0 10/01/16 19:04 81 18 96 Nasal Cannula 2.0 10/01/16 19:03 Nasal Cannula 2.0 10/01/16 19:03 80 18 95 Nasal Cannula 3.0 10/01/16 19:02 96 Nasal Cannula 2.0 10/01/16 16:00 75 10/01/16 16:00 97.7 86 22 97/52 95 Nasal Cannula 2.0 10/01/16 15:15 96.4 Intake and Output 10/01/16 10/02/16 19:00 07:00 Intake Total 504.0 ml 606.0 ml Output Total 450 ml 750 ml Balance 54.0 ml -144.0 ml Intake Oral 440 ml 450 ml IV Total 64.0 ml 156.0 ml Output Urine Total 450 ml 750 ml General Appearance: WD/WN HEENT: normocephalic Respiratory/Chest: chest wall non-tender, lungs clear Cardiovascular: normal peripheral pulses, normal rate Abdomen: normal bowel sounds, soft, non tender Genitourinary: normal external genitalia Extremities: no cyanosis Skin: no rash Lymphatic: no neck adenopathy, no groin adenopathy Musculoskeletal: normal muscle bulk Microbiology Date/Time Source Procedure Growth Status 09/30/16 03:44 Nasal Nares Influenza Types A,B Antigen (SHAWNEE) - Final Complete 09/29/16 19:50 Nasal Nares MRSA Culture - Final Staphylococcus Aureus - Mrsa Complete 09/29/16 19:50 Rectum VRE Culture - Final NO VANCOMYCIN RESISTANT ENTEROCOCCUS ... Complete Laboratory Tests 10/02/16 05:30: White Blood Count 3.6L, Red Blood Count 4.19L, Hemoglobin 12.4L, Hematocrit 39.4L, Mean Corpuscular Volume 94, Mean Corpuscular Hemoglobin 29.5, Mean Corpuscular Hemoglobin Concent 31.4L, Red Cell Distribution Width 14.1, Platelet Count 115L, Mean Platelet Volume 6.0L, Neutrophils (%) (Auto) 66.1, Lymphocytes (%) (Auto) 22.0, Monocytes (%) (Auto) 10.8H, Eosinophils (%) (Auto) 0.4, Basophils (%) (Auto) 0.8, Sodium Level 142, Potassium Level 4.1, Chloride Level 100, Carbon Dioxide Level 37H, Anion Gap 5, Blood Urea Nitrogen 13, Creatinine 0.6L, Estimat Glomerular Filtration Rate > 60, Glucose Level 79, Calcium Level 8.8, Pro-B-Type Natriuretic Peptide 6817H Current Medications Medications (Trade) Dose Ordered Sig/Aimee Route PRN Reason Start Time Stop Time Status Last Admin Dose Admin Acetaminophen (Tylenol) 650 mg Q4H PRN ORAL Mild Pain (Pain Scale 1-3) 10/01/16 19:00 10/31/16 18:59 Albuterol Sulfate (Proventil) 2.5 mg Q6HRT HHN 10/01/16 19:00 10/06/16 18:59 10/02/16 13:06 Albuterol/ Ipratropium (DuoNeb 0.5-3(2.5)mg/3ml) 3 ml Q6H PRN HHN Shortness of Breath 10/01/16 19:00 10/06/16 18:59 Dextrose (Dextrose 50%) STAT PRN IV Hypoglycemia 10/01/16 19:00 10/31/16 18:59 Heparin Sodium (Porcine) (Heparin 5000 units/ml) 5,000 units EVERY 12 HOURS SUBQ 10/01/16 21:00 10/31/16 20:59 Ipratropium [place] (Atrovent) 500 mcg DAILY HHN 10/02/16 09:00 10/07/16 08:59 10/02/16 09:28 Methadone HCl (Methadone HCl) 40 mg QPM ORAL 10/02/16 16:30 10/09/16 16:29 Methylprednisolone Sodium Succinate (Solu-MEDROL) 40 mg DAILY IVP 10/02/16 09:00 11/01/16 08:59 10/02/16 10:46 Morphine Sulfate (Morphine Sulfate) 2 mg Q4H PRN IVP Moderate Pain (Pain Scale 4-6) 10/01/16 19:00 10/08/16 18:59 Morphine Sulfate (Morphine Sulfate) 4 mg Q4H PRN IVP Severe Pain (Pain Scale 7-10) 10/01/16 19:00 10/08/16 18:59 10/02/16 02:22 Piperacillin Sod/ Tazobactam Sod/ Dextrose (Zosyn/D5W) 110 ml @ 27.5 mls/hr Q8HR@0000,0800,1600 IVPB 10/02/16 16:00 10/06/16 15:59 Promethazine HCl/ Codeine (Phenergan with Codeine) 5 ml Q4H PRN ORAL For Cough 10/01/16 19:00 10/31/16 18:59 Vancomycin HCl 1 ea 1 ea DAILY PRN MISC Per rx protocol 10/02/16 19:00 11/01/16 18:59 Vancomycin HCl/ Dextrose (Vancomycin/D5W) 275 ml @ 183.333 mls/hr Q24H IVPB 10/02/16 14:30 10/07/16 14:29 EYAL HAQUE Oct 02, 2016 13:25
[2016-10-02] MEDS: Vancomycin 1.25 GM in D5W 275 ML IVPB SCH (13:51)
[2016-10-02] MEDS ORDERED: NS 275ml ONE (14:14)
--- NOTE | 2016-10-02 14:39 | Internal Med Progress Note ---
Subjective Date of Service: Oct 02, 2016 Physician Name Velma Welch Attending Physician Justus Villa M.D. Current Medications Medications (Trade) Dose Ordered Sig/Aimee Route PRN Reason Start Time Stop Time Status Last Admin Dose Admin Acetaminophen (Tylenol) 650 mg Q4H PRN ORAL Mild Pain (Pain Scale 1-3) 10/01/16 19:00 10/31/16 18:59 Albuterol Sulfate (Proventil) 2.5 mg Q6HRT HHN 10/01/16 19:00 10/06/16 18:59 10/02/16 13:06 Albuterol/ Ipratropium (DuoNeb 0.5-3(2.5)mg/3ml) 3 ml Q6H PRN HHN Shortness of Breath 10/01/16 19:00 10/06/16 18:59 Dextrose (Dextrose 50%) STAT PRN IV Hypoglycemia 10/01/16 19:00 10/31/16 18:59 Heparin Sodium (Porcine) (Heparin 5000 units/ml) 5,000 units EVERY 12 HOURS SUBQ 10/01/16 21:00 10/31/16 20:59 Ipratropium [place] (Atrovent) 500 mcg DAILY HHN 10/02/16 09:00 10/07/16 08:59 10/02/16 09:28 Methadone HCl (Methadone HCl) 40 mg QPM ORAL 10/02/16 16:30 10/09/16 16:29 Methylprednisolone Sodium Succinate (Solu-MEDROL) 40 mg DAILY IVP 10/02/16 09:00 11/01/16 08:59 10/02/16 10:46 Morphine Sulfate (Morphine Sulfate) 2 mg Q4H PRN IVP Moderate Pain (Pain Scale 4-6) 10/01/16 19:00 10/08/16 18:59 Morphine Sulfate (Morphine Sulfate) 4 mg Q4H PRN IVP Severe Pain (Pain Scale 7-10) 10/01/16 19:00 10/08/16 18:59 10/02/16 13:51 Piperacillin Sod/ Tazobactam Sod/ Dextrose (Zosyn/D5W) 110 ml @ 27.5 mls/hr Q8HR@0000,0800,1600 IVPB 10/02/16 16:00 10/06/16 15:59 Promethazine HCl/ Codeine (Phenergan with Codeine) 5 ml Q4H PRN ORAL For Cough 10/01/16 19:00 10/31/16 18:59 Vancomycin HCl 1 ea 1 ea DAILY PRN MISC Per rx protocol 10/02/16 19:00 11/01/16 18:59 Vancomycin HCl/ Dextrose (Vancomycin/D5W) 275 ml @ 183.333 mls/hr Q24H IVPB 10/02/16 14:30 10/07/16 14:29 10/02/16 13:51 Allergies: Coded Allergies: No Known Allergies (Unverified , 02/25/16) ROS Limited/Unobtainable: No Constitutional: Reports: no symptoms HEENT: Reports: no symptoms Cardiovascular: Reports: no symptoms Respiratory: Reports: shortness of breath Gastrointestinal/Abdominal: Reports: no symptoms Genitourinary: Reports: no symptoms Neurologic/Psychiatric: Reports: no symptoms Subjective 71 YO M admitted with shortness of breath; now pneumonia. Cover for Int Med-Dr Villa. Objective Last Vital Signs Date Time Temp Pulse Resp B/P Pulse Ox O2 Delivery O2 Flow Rate FiO2 10/02/16 13:05 95 18 96 Nasal Cannula 3.0 10/02/16 12:08 98.6 125/55 10/01/16 00:59 28 Laboratory Tests Test 10/02/16 05:30 White Blood Count 3.6 K/UL (4.8-10.8) L Red Blood Count 4.19 M/UL (4.70-6.10) L Hemoglobin 12.4 G/DL (14.2-18.0) L Hematocrit 39.4 % (42.0-52.0) L Mean Corpuscular Volume 94 FL (80-99) Mean Corpuscular Hemoglobin 29.5 PG (27.0-31.0) Mean Corpuscular Hemoglobin Concent 31.4 G/DL (32.0-36.0) L Red Cell Distribution Width 14.1 % (11.6-14.8) Platelet Count 115 K/UL (150-450) L Mean Platelet Volume 6.0 FL (6.5-10.1) L Neutrophils (%) (Auto) 66.1 % (45.0-75.0) Lymphocytes (%) (Auto) 22.0 % (20.0-45.0) Monocytes (%) (Auto) 10.8 % (1.0-10.0) H Eosinophils (%) (Auto) 0.4 % (0.0-3.0) Basophils (%) (Auto) 0.8 % (0.0-2.0) Sodium Level 142 mEQ/L (135-145) Potassium Level 4.1 mEQ/L (3.4-4.9) Chloride Level 100 mEQ/L (98-107) Carbon Dioxide Level 37 mEQ/L (20-30) H Anion Gap 5 (5-15) Blood Urea Nitrogen 13 mg/dL (7-23) Creatinine 0.6 mg/dL (0.7-1.2) L Estimat Glomerular Filtration Rate > 60 mL/min (>60) Glucose Level 79 mg/dL (74-106) Calcium Level 8.8 mg/dL (8.6-10.2) Pro-B-Type Natriuretic Peptide 6817 pg/mL (0-125) H Microbiology Date/Time Source Procedure Growth Status 09/30/16 03:44 Nasal Nares Influenza Types A,B Antigen (SHAWNEE) - Final Complete 09/29/16 19:50 Nasal Nares MRSA Culture - Final Staphylococcus Aureus - Mrsa Complete 09/29/16 19:50 Rectum VRE Culture - Final NO VANCOMYCIN RESISTANT ENTEROCOCCUS ... Complete Intake and Output 10/01/16 10/02/16 19:00 07:00 Intake Total 504.0 ml 606.0 ml Output Total 450 ml 750 ml Balance 54.0 ml -144.0 ml Intake Oral 440 ml 450 ml IV Total 64.0 ml 156.0 ml Output Urine Total 450 ml 750 ml Objective General Appearance: alert, mild distress, thin EENT: PERRL/EOMI, normal ENT inspection Neck: non-tender, normal alignment, supple, normal inspection Cardiovascular: normal peripheral pulses, normal rate, regular rhythm, no gallop/murmur, no JVD Respiratory/Chest: decreased breath sounds, crackles/rales, rhonchi - bilaterally, expiratory wheezing Abdomen: normal bowel sounds, non tender, soft, no organomegaly, no mass Extremities: normal range of motion 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 (2) HTN (hypertension) (3) Atrial flutter (4) Opiate dependence, continuous Assessment & Plan: On methadone. (5) CHF (congestive heart failure) (6) COPD (chronic obstructive pulmonary disease) Assessment & Plan: See pulmonary note. Continue duoneb. (7) Pneumonia Assessment & Plan: See pulmonary note. Continue zosyn and vanco. Await sputum culture. (8) Dyspnea Status: unchanged VELMA WELCH Oct 02, 2016 14:39
[2016-10-02] MEDS: Piperacillin/Tazobactam 3.375 GM in D5W 110 ML IVPB SCH (17:58)
[2016-10-03] VITALS (7 sets, daily range): BP systolic 105–150; BP diastolic 69–101
[2016-10-03] MEDS: Piperacillin/Tazobactam 3.375 GM in D5W 110 ML IVPB SCH ×3 (00:01→16:50)
[2016-10-03] MEDS: Albuterol ud Inhalation HHN SCH ×5 (00:33→23:55)
[2016-10-03] MEDS: Morphine Sulfate 4mg/ml Inj IVP PRN ×4 (02:54→22:09)
[2016-10-03] MEDS: Solu-MEDROL 40mg Inj IVP SCH (08:21)
[2016-10-03] MEDS: Heparin 5000 units/ml inj SUBQ SCH ×2 (08:22→21:00)
[2016-10-03 08:38] LABS: BASOPHILS % (AUTO) 0.2 % (0.0-2.0); EOSINOPHILS % (AUTO) 0.1 % (0.0-3.0); LYMPHOCYTES % (AUTO) 11.9 % (20.0-45.0); MEAN CORPUSCULAR HEMOGLOBIN 29.2 PG (27.0-31.0); MEAN CORPUSCULAR HGB CONC 31.1 G/DL (32.0-36.0); MEAN CORPUSCULAR VOLUME 94 FL (80-99); MONOCYTES % (AUTO) 12.4 % (1.0-10.0); NEUTROPHILS % (AUTO) 75.4 % (45.0-75.0); PLATELET COUNT 139 K/UL (150-450); RED BLOOD COUNT 4.33 M/UL (4.70-6.10); RED CELL DISTRIBUTION WIDTH 14.1 % (11.6-14.8); WHITE BLOOD COUNT 4.4 K/UL (4.8-10.8)
[2016-10-03] MEDS: Ipratropium 0.02% Inh Soln 2.5ml UD HHN SCH (09:55)
[2016-10-03 09:56] LABS: ANION GAP 11 (5-15); CALCIUM 9.1 mg/dL (8.6-10.2); CARBON DIOXIDE 33 mEQ/L (20-30); CHLORIDE 97 mEQ/L (98-107); CREATININE 0.6 mg/dL (0.7-1.2); GLOMERULAR FILTRATION RATE > 60 mL/min (>60); HEMOLYSIS 13; POTASSIUM 4.4 mEQ/L (3.4-4.9); SODIUM 141 mEQ/L (135-145)
--- NOTE | 2016-10-03 13:01 | Internal Med Progress Note ---
Subjective Date of Service: Oct 03, 2016 Physician Name Tyrese Welch Attending Physician Justus Villa M.D. Current Medications Medications (Trade) Dose Ordered Sig/Aimee Route PRN Reason Start Time Stop Time Status Last Admin Dose Admin Acetaminophen (Tylenol) 650 mg Q4H PRN ORAL Mild Pain (Pain Scale 1-3) 10/01/16 19:00 10/31/16 18:59 Albuterol Sulfate (Proventil) 2.5 mg Q6HRT HHN 10/01/16 19:00 10/06/16 18:59 10/03/16 07:47 Albuterol/ Ipratropium (DuoNeb 0.5-3(2.5)mg/3ml) 3 ml Q6H PRN HHN Shortness of Breath 10/01/16 19:00 10/06/16 18:59 10/03/16 03:29 Dextrose (Dextrose 50%) STAT PRN IV Hypoglycemia 10/01/16 19:00 10/31/16 18:59 Heparin Sodium (Porcine) (Heparin 5000 units/ml) 5,000 units EVERY 12 HOURS SUBQ 10/01/16 21:00 10/31/16 20:59 Ipratropium [place] (Atrovent) 500 mcg DAILY HHN 10/02/16 09:00 10/07/16 08:59 10/03/16 09:55 Methadone HCl (Methadone HCl) 40 mg QPM ORAL 10/02/16 16:30 10/09/16 16:29 10/02/16 17:14 Methylprednisolone Sodium Succinate (Solu-MEDROL) 40 mg DAILY IVP 10/02/16 09:00 11/01/16 08:59 10/03/16 08:21 Morphine Sulfate (Morphine Sulfate) 2 mg Q4H PRN IVP Moderate Pain (Pain Scale 4-6) 10/01/16 19:00 10/08/16 18:59 Morphine Sulfate (Morphine Sulfate) 5 mg Q4H PRN IVP Severe Pain (Pain Scale 7-10) 10/02/16 15:30 10/09/16 15:29 10/03/16 12:26 Piperacillin Sod/ Tazobactam Sod/ Dextrose (Zosyn/D5W) 110 ml @ 27.5 mls/hr Q8HR@0000,0800,1600 IVPB 10/02/16 16:00 2/1/17 15:59 10/03/16 08:20 Promethazine HCl/ Codeine (Phenergan with Codeine) 5 ml Q4H PRN ORAL For Cough 10/01/16 19:00 10/31/16 18:59 Vancomycin HCl 1 ea 1 ea DAILY PRN MISC Per rx protocol 10/02/16 19:00 11/01/16 18:59 Vancomycin HCl/ Dextrose (Vancomycin/D5W) 275 ml @ 183.333 mls/hr Q24H IVPB 10/02/16 14:30 10/07/16 14:29 10/02/16 13:51 Allergies: Coded Allergies: No Known Allergies (Unverified , 02/25/16) Constitutional: Reports: no symptoms HEENT: Reports: no symptoms Cardiovascular: Reports: no symptoms Respiratory: Reports: shortness of breath Gastrointestinal/Abdominal: Reports: no symptoms Genitourinary: Reports: no symptoms Neurologic/Psychiatric: Reports: no symptoms Subjective 71 YO M admitted with shortness of breath; now pneumonia. Cover for Int Med-Dr Villa. Objective Last Vital Signs Date Time Temp Pulse Resp B/P Pulse Ox O2 Delivery O2 Flow Rate FiO2 10/03/16 12:00 97.0 86 15 119/73 96 Room Air 10/03/16 07:50 2.0 28 Laboratory Tests Test 10/03/16 08:25 White Blood Count 4.4 K/UL (4.8-10.8) L Red Blood Count 4.33 M/UL (4.70-6.10) L Hemoglobin 12.6 G/DL (14.2-18.0) L Hematocrit 40.6 % (42.0-52.0) L Mean Corpuscular Volume 94 FL (80-99) Mean Corpuscular Hemoglobin 29.2 PG (27.0-31.0) Mean Corpuscular Hemoglobin Concent 31.1 G/DL (32.0-36.0) L Red Cell Distribution Width 14.1 % (11.6-14.8) Platelet Count 139 K/UL (150-450) L Mean Platelet Volume 7.0 FL (6.5-10.1) Neutrophils (%) (Auto) 75.4 % (45.0-75.0) H Lymphocytes (%) (Auto) 11.9 % (20.0-45.0) L Monocytes (%) (Auto) 12.4 % (1.0-10.0) H Eosinophils (%) (Auto) 0.1 % (0.0-3.0) Basophils (%) (Auto) 0.2 % (0.0-2.0) Sodium Level 141 mEQ/L (135-145) Potassium Level 4.4 mEQ/L (3.4-4.9) Chloride Level 97 mEQ/L (98-107) L Carbon Dioxide Level 33 mEQ/L (20-30) H Anion Gap 11 (5-15) Blood Urea Nitrogen 17 mg/dL (7-23) Creatinine 0.6 mg/dL (0.7-1.2) L Estimat Glomerular Filtration Rate > 60 mL/min (>60) Glucose Level 115 mg/dL (74-106) H Calcium Level 9.1 mg/dL (8.6-10.2) Pro-B-Type Natriuretic Peptide 59408 pg/mL (0-125) H Microbiology Date/Time Source Procedure Growth Status 10/02/16 02:40 Sputum Gram Stain - Final Resulted 10/02/16 02:40 Sputum Sputum Culture Pending Resulted Intake and Output 10/02/16 10/03/16 19:00 07:00 Intake Total 892.500 ml 662.5 ml Output Total 400 ml 900 ml Balance 492.500 ml -237.5 ml Intake Oral 480 ml 470 ml IV Total 412.500 ml 192.5 ml Output Urine Total 400 ml 900 ml # Voids 2 Objective General Appearance: alert, mild distress, thin EENT: PERRL/EOMI, normal ENT inspection Neck: non-tender, normal alignment, supple, normal inspection Cardiovascular: normal peripheral pulses, normal rate, regular rhythm, no gallop/murmur, no JVD Respiratory/Chest: decreased breath sounds, crackles/rales, rhonchi - bilaterally, expiratory wheezing Abdomen: normal bowel sounds, non tender, soft, no organomegaly, no mass Extremities: normal range of motion 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 (2) HTN (hypertension) (3) Atrial flutter (4) Opiate dependence, continuous Assessment & Plan: On methadone. (5) CHF (congestive heart failure) (6) COPD (chronic obstructive pulmonary disease) Assessment & Plan: See pulmonary note. Continue duoneb. (7) Pneumonia Assessment & Plan: See pulmonary note. Continue zosyn and vanco. Await sputum culture. (8) Dyspnea Status: progressing TYRESE WELCH Oct 03, 2016 13:01
--- NOTE | 2016-10-03 13:27 | Pulmonology Progress Note ---
Assessment/Plan Problems: (1) Pneumonia (2) COPD (chronic obstructive pulmonary disease) (3) Venous stasis ulcer Assessment/Plan feeling bettter tumor markers were negative iv antibiotics sputum pending med/surg MRSA nares for lung biopsy Subjective ROS Limited/Unobtainable: No Constitutional: Reports: no symptoms HEENT: Repors: no symptoms Respiratory: Reports: no symptoms Cardiovascular: Reports: no symptoms Allergies: Coded Allergies: No Known Allergies (Unverified , 02/25/16) Objective Last 24 Hour Vital Signs Date Time Temp Pulse Resp B/P Pulse Ox O2 Delivery O2 Flow Rate FiO2 10/03/16 12:38 97.0 86 15 119/73 96 Room Air 10/03/16 12:00 97.0 86 15 119/73 96 Room Air 10/03/16 08:25 97.0 100 15 117/69 95 10/03/16 07:50 97.9 10/03/16 07:50 103 18 93 Nasal Cannula 2.0 10/03/16 07:45 Nasal Cannula 2.0 10/03/16 07:45 104 20 85 Nasal Cannula 2.0 10/03/16 07:45 85 Nasal Cannula 2.0 10/03/16 07:45 28 10/03/16 04:00 97.9 96 20 109/87 96 Room Air 10/03/16 03:41 83 14 97 Nasal Cannula 2.0 10/03/16 03:31 69 18 92 Nasal Cannula 2.0 10/03/16 03:31 10/03/16 00:34 Nasal Cannula 10/03/16 00:34 Nasal Cannula 10/02/16 23:44 98.7 89 20 104/69 97 Room Air 10/02/16 20:10 97.1 85 18 98/65 92 Nasal Cannula 2.0 10/02/16 18:50 92 Nasal Cannula 2.0 10/02/16 18:50 Nasal Cannula 2.0 10/02/16 18:35 81 18 94 Nasal Cannula 2.0 10/02/16 18:30 78 18 92 Nasal Cannula 2.0 10/02/16 16:10 97.0 80 18 100/70 92 Nasal Cannula 2.0 Intake and Output 10/02/16 10/03/16 19:00 07:00 Intake Total 892.500 ml 662.5 ml Output Total 400 ml 900 ml Balance 492.500 ml -237.5 ml Intake Oral 480 ml 470 ml IV Total 412.500 ml 192.5 ml Output Urine Total 400 ml 900 ml # Voids 2 General Appearance: cachetic HEENT: normocephalic, anicteric Respiratory/Chest: chest wall non-tender, lungs clear Cardiovascular: normal peripheral pulses, normal rate Abdomen: normal bowel sounds, soft, non tender Extremities: no cyanosis Microbiology Date/Time Source Procedure Growth Status 10/02/16 02:40 Sputum Gram Stain - Final Resulted 10/02/16 02:40 Sputum Sputum Culture Pending Resulted Laboratory Tests 10/03/16 08:25: White Blood Count 4.4L, Red Blood Count 4.33L, Hemoglobin 12.6L, Hematocrit 40.6L, Mean Corpuscular Volume 94, Mean Corpuscular Hemoglobin 29.2, Mean Corpuscular Hemoglobin Concent 31.1L, Red Cell Distribution Width 14.1, Platelet Count 139L, Mean Platelet Volume 7.0, Neutrophils (%) (Auto) 75.4H, Lymphocytes (%) (Auto) 11.9L, Monocytes (%) (Auto) 12.4H, Eosinophils (%) (Auto ) 0.1, Basophils (%) (Auto) 0.2, Sodium Level 141, Potassium Level 4.4, Chloride Level 97L, Carbon Dioxide Level 33H, Anion Gap 11, Blood Urea Nitrogen 17, Creatinine 0.6L, Estimat Glomerular Filtration Rate > 60, Glucose Level 115H , Calcium Level 9.1, Pro-B-Type Natriuretic Peptide 43874S Current Medications Medications (Trade) Dose Ordered Sig/Aimee Route PRN Reason Start Time Stop Time Status Last Admin Dose Admin Acetaminophen (Tylenol) 650 mg Q4H PRN ORAL Mild Pain (Pain Scale 1-3) 10/01/16 19:00 10/31/16 18:59 Albuterol Sulfate (Proventil) 2.5 mg Q6HRT HHN 10/01/16 19:00 10/06/16 18:59 10/03/16 07:47 Albuterol/ Ipratropium (DuoNeb 0.5-3(2.5)mg/3ml) 3 ml Q6H PRN HHN Shortness of Breath 10/01/16 19:00 10/06/16 18:59 10/03/16 03:29 Dextrose (Dextrose 50%) STAT PRN IV Hypoglycemia 10/01/16 19:00 10/31/16 18:59 Heparin Sodium (Porcine) (Heparin 5000 units/ml) 5,000 units EVERY 12 HOURS SUBQ 10/01/16 21:00 10/31/16 20:59 Ipratropium [place] (Atrovent) 500 mcg DAILY HHN 10/02/16 09:00 10/07/16 08:59 10/03/16 09:55 Methadone HCl (Methadone HCl) 40 mg QPM ORAL 10/02/16 16:30 10/09/16 16:29 10/02/16 17:14 Methylprednisolone Sodium Succinate (Solu-MEDROL) 40 mg DAILY IVP 10/02/16 09:00 11/01/16 08:59 10/03/16 08:21 Morphine Sulfate (Morphine Sulfate) 2 mg Q4H PRN IVP Moderate Pain (Pain Scale 4-6) 10/01/16 19:00 10/08/16 18:59 Morphine Sulfate (Morphine Sulfate) 5 mg Q4H PRN IVP Severe Pain (Pain Scale 7-10) 10/02/16 15:30 10/09/16 15:29 10/03/16 12:26 Piperacillin Sod/ Tazobactam Sod/ Dextrose (Zosyn/D5W) 110 ml @ 27.5 mls/hr Q8HR@0000,0800,1600 IVPB 10/02/16 16:00 10/06/16 15:59 10/03/16 08:20 Promethazine HCl/ Codeine (Phenergan with Codeine) 5 ml Q4H PRN ORAL For Cough 10/01/16 19:00 10/31/16 18:59 Vancomycin HCl 1 ea 1 ea DAILY PRN MISC Per rx protocol 10/02/16 19:00 11/01/16 18:59 Vancomycin HCl/ Dextrose (Vancomycin/D5W) 275 ml @ 183.333 mls/hr Q24H IVPB 10/02/16 14:30 10/07/16 14:29 10/02/16 13:51 EYAL HAQUE Oct 03, 2016 13:27
[2016-10-03] MEDS: Vancomycin 1.25 GM in D5W 275 ML IVPB SCH (13:49)
[2016-10-03] MEDS ORDERED: Vancomycin 1250mg in D5W 275ml IVPB SCH (15:30)
[2016-10-03] MEDS: Morphine Sulfate 2mg/ml Inj IVP PRN (16:51)
--- NOTE | 2016-10-03 16:52 | Consultation ---
Consult Note Consult Note Cardiology for Dr. Zepeda full noted dictated #[id number] ROMULO AMBROSIO Oct 03, 2016 16:52
[2016-10-03] MEDS ORDERED: Vancomycin 500mg in D5W 110ml IVPB ONE (20:00)
[2016-10-04] MEDS: Piperacillin/Tazobactam 3.375 GM in D5W 110 ML IVPB SCH ×3 (00:18→16:00)
--- NOTE | 2016-10-04 01:07 | Consultation ---
DATE OF CONSULTATION: REQUESTING PHYSICIAN: Tyrese Mcnally M.D. REASON FOR CONSULTATION: History of congestive heart failure, shortness of breath. HISTORY OF PRESENT ILLNESS: The patient is a 71-year-old male who was brought in by paramedics with complaints of chest tightness, increasing shortness of breath, and cough productive of white to yellow sputum for a few days. He was diagnosed with pneumonia and has been admitted for further treatment. He was recently hospitalized here 09/19/2016. During that hospitalization, an echo showed ejection fraction 55% to 60%, paradoxical septal motion, diastolic dysfunction, moderate right atrial and right ventricular enlargement. Doppler showed moderate tricuspid regurgitation and severe pulmonary hypertension, RV systolic pressure was 53 mmHg. PAST MEDICAL HISTORY: As noted above. Also history of paroxysmal atrial fibrillation and hypertension. MEDICATIONS: Vancomycin intravenously 1.25 g q. 12 h, Zosyn 3.375 g IV every eight hours, methadone 40 mg at bedtime, morphine p.r.n., Atrovent 500 mcg daily, Solu-Medrol 40 mg IV daily, subcutaneous heparin 5000 units q. 12 h, DuoNeb every six hours p.r.n., Phenergan with codeine q. 4 h. p.r.n. ALLERGIES: No known drug allergies. SOCIAL HISTORY: The patient is a nonsmoker. Does not drink alcohol and does not use any drugs. He has a remote history of drug and alcohol abuse however . PHYSICAL EXAMINATION: VITAL SIGNS: Blood pressure is 105/73, pulse 86 and regular, respirations 16, and afebrile. GENERAL: Alert and cachetic male, in no acute distress on room air. HEENT: Normocephalic and atraumatic. Sclerae anicteric. Oral mucosa are moist. NECK: Supple. There is no jugular venous distention. No carotid bruits. LUNGS: Scatterd bilateral rhonchi. No rales or wheezes. HEART: Regular rate and rhythm. S1 and S2 without murmurs. ABDOMEN: Soft and nontender. No palpable mass. No bruits. EXTREMITIES: Bilateral lower extremity compression stockings. No peripheral edema. LABORATORY AND DIAGNOSTIC DATA: Hemoglobin 12.6, white blood cell 4400, platelets 139,000. Potassium 4.4. BUN 17, creatinine 0.6. ProBNP 73746. Chest x-ray is pending. EKG is technically poor tracing but shows sinus rhythm, rate of 83 with first-degree AV block, occasional premature atrial complex, right bundle branch block, old EKG not available for comparison. ASSESSMENT AND RECOMMENDATIONS: The patient is a 71-year-old male with history of nonischemic cardiomyopathy, history of recent echo showing right ventricular dysfunction and pulmonary hypertension who was admitted with pneumonia, he has been treated with antibiotics, steroids, bronchodilators. With regards to his congestive heart failure status, he is at risk for volume overload and right ventricular failure. Given pulmonary hypertension and RV dysfunction, I would recommend close followup of intake and output as well as daily weights. He may need low dose intravenous diuretics in view of increased intravenous fluids. He is receiving with antibiotics and steroids. No further cardiac testing is recommended given the recent test results from his hospitalization earlier this month. Damaris Ren M.D. DR: Shaunna JOB#: [id number] CC:
[2016-10-04] MEDS: Morphine Sulfate 4mg/ml Inj IVP PRN (02:24)
[2016-10-04] MEDS: Vancomycin 1250mg in D5W 275ml IVPB SCH ×2 (03:07→14:06)
[2016-10-04 04:00] VITALS: BP 124/79
[2016-10-04 05:06] VITALS: BP 124/84
[2016-10-04 06:47] LABS: BASOPHILS % (AUTO) 0.3 % (0.0-2.0); LYMPHOCYTES % (AUTO) 8.4 % (20.0-45.0); MEAN CORPUSCULAR HEMOGLOBIN 29.9 PG (27.0-31.0); MEAN CORPUSCULAR HGB CONC 31.4 G/DL (32.0-36.0); MEAN CORPUSCULAR VOLUME 95 FL (80-99); MEAN PLATELET VOLUME 6.5 FL (6.5-10.1); MONOCYTES % (AUTO) 11.6 % (1.0-10.0); NEUTROPHILS % (AUTO) 79.7 % (45.0-75.0); PLATELET COUNT 131 K/UL (150-450); RED BLOOD COUNT 3.69 M/UL (4.70-6.10); WHITE BLOOD COUNT 7.5 K/UL (4.8-10.8)
[2016-10-04 06:58] LABS: ALANINE AMINOTRANSFERASE 7 U/L (3-41); ALBUMIN/GLOBULIN RATIO 0.7 (1.0-2.7); ANION GAP 10 (5-15); ASPARTATE AMINO TRANSFERASE 17 U/L (5-40); CALCIUM 9.3 mg/dL (8.6-10.2); CARBON DIOXIDE 34 mEQ/L (20-30); CHLORIDE 94 mEQ/L (98-107); CREATININE 0.6 mg/dL (0.7-1.2); GLOMERULAR FILTRATION RATE > 60 mL/min (>60); HEMOLYSIS 2; POTASSIUM 4.3 mEQ/L (3.4-4.9); SODIUM 138 mEQ/L (135-145)
[2016-10-04] MEDS: Albuterol ud Inhalation HHN SCH ×3 (07:00→19:14)
[2016-10-04] MEDS: Ipratropium 0.02% Inh Soln 2.5ml UD HHN SCH (07:55)
[2016-10-04 08:15] VITALS: BP 111/76
[2016-10-04] MEDS: Heparin 5000 units/ml inj SUBQ SCH ×2 (09:00→20:30)
[2016-10-04] MEDS: Solu-MEDROL 40mg Inj IVP SCH (09:00)
[2016-10-04] MEDS: traMADol 50mg tab ORAL PRN ×2 (10:23→17:45)
[2016-10-04 11:44] VITALS: BP 133/65
--- NOTE | 2016-10-04 14:54 | Diagnostic Imaging Report ---
Indication: DYSPNEA Technique: One view of the chest Comparison: 09/29/2016 Findings: There appears to be decreased interstitial disease and infrahilar and parenchymal consolidation. Bronchial wall thickening which is probably chronic persists. There are persistent atelectatic changes at both lung bases. The heart remains enlarged. Impression: Improved bilateral parenchymal disease, over 5 days Persistent bibasilar atelectasis and chronic bronchial wall thickening
[2016-10-04 16:00] VITALS: BP 115/85
--- NOTE | 2016-10-04 18:36 | Internal Med Progress Note ---
Subjective Physician Name Justus Ruffin Attending Physician Justus Ruffin M.D. Current Medications Medications (Trade) Dose Ordered Sig/Aimee Route PRN Reason Start Time Stop Time Status Last Admin Dose Admin Acetaminophen (Tylenol) 650 mg Q4H PRN ORAL Mild Pain (Pain Scale 1-3) 10/01/16 19:00 10/31/16 18:59 Albuterol Sulfate (Proventil) 2.5 mg Q6HRT HHN 10/01/16 19:00 10/06/16 18:59 10/03/16 23:55 Albuterol/ Ipratropium (DuoNeb 0.5-3(2.5)mg/3ml) 3 ml Q6H PRN HHN Shortness of Breath 10/01/16 19:00 10/06/16 18:59 10/03/16 03:29 Dextrose (Dextrose 50%) STAT PRN IV Hypoglycemia 10/01/16 19:00 10/31/16 18:59 Heparin Sodium (Porcine) (Heparin 5000 units/ml) 5,000 units EVERY 12 HOURS SUBQ 10/01/16 21:00 10/31/16 20:59 Ipratropium [place] (Atrovent) 500 mcg DAILY HHN 10/02/16 09:00 10/07/16 08:59 10/03/16 09:55 Methadone HCl (Methadone HCl) 40 mg QPM ORAL 10/02/16 16:30 10/09/16 16:29 10/04/16 16:36 Methylprednisolone Sodium Succinate (Solu-MEDROL) 40 mg DAILY IVP 10/02/16 09:00 11/01/16 08:59 10/03/16 08:21 Morphine Sulfate (Morphine Sulfate) 2 mg Q4H PRN IVP Moderate Pain (Pain Scale 4-6) 10/01/16 19:00 10/08/16 18:59 10/03/16 16:51 Morphine Sulfate 5 mg 5 mg Q4H PRN IVP Severe Pain (Pain Scale 7-10) 10/02/16 15:30 10/09/16 15:29 10/04/16 02:24 Piperacillin Sod/ Tazobactam Sod/ Dextrose (Zosyn/D5W) 110 ml @ 27.5 mls/hr Q8HR@0000,0800,1600 IVPB 10/02/16 16:00 2/1/17 15:59 10/04/16 00:18 Promethazine HCl/ Codeine (Phenergan with Codeine) 5 ml Q4H PRN ORAL For Cough 10/01/16 19:00 10/31/16 18:59 Tramadol HCl (Ultram) 50 mg Q6H PRN ORAL Severe Pain (Pain Scale 7-10) 10/04/16 09:30 10/11/16 09:29 10/04/16 17:45 Vancomycin HCl 1 ea 1 ea DAILY PRN MISC Per rx protocol 10/02/16 19:00 11/01/16 18:59 Vancomycin HCl/ Dextrose (Vancomycin/D5W) 275 ml @ 183.708 mls/hr Q12H IVPB 10/04/16 02:30 10/09/16 02:29 10/04/16 03:07 Allergies: Coded Allergies: No Known Allergies (Unverified , 02/25/16) All Systems: reviewed and negative except above - left knee pain; unable to walk; on 3L O2 Objective Last Vital Signs Date Time Temp Pulse Resp B/P Pulse Ox O2 Delivery O2 Flow Rate FiO2 10/04/16 16:00 98.2 103 18 115/85 94 Nasal Cannula 3.0 10/03/16 23:58 28 Laboratory Tests Test 10/04/16 06:10 White Blood Count 7.5 K/UL (4.8-10.8) # Red Blood Count 3.69 M/UL (4.70-6.10) L Hemoglobin 11.0 G/DL (14.2-18.0) L Hematocrit 35.2 % (42.0-52.0) L Mean Corpuscular Volume 95 FL (80-99) Mean Corpuscular Hemoglobin 29.9 PG (27.0-31.0) Mean Corpuscular Hemoglobin Concent 31.4 G/DL (32.0-36.0) L Red Cell Distribution Width 14.0 % (11.6-14.8) Platelet Count 131 K/UL (150-450) L Mean Platelet Volume 6.5 FL (6.5-10.1) Neutrophils (%) (Auto) 79.7 % (45.0-75.0) H Lymphocytes (%) (Auto) 8.4 % (20.0-45.0) L Monocytes (%) (Auto) 11.6 % (1.0-10.0) H Eosinophils (%) (Auto) 0.0 % (0.0-3.0) Basophils (%) (Auto) 0.3 % (0.0-2.0) Sodium Level 138 mEQ/L (135-145) Potassium Level 4.3 mEQ/L (3.4-4.9) Chloride Level 94 mEQ/L (98-107) L Carbon Dioxide Level 34 mEQ/L (20-30) H Anion Gap 10 (5-15) Blood Urea Nitrogen 16 mg/dL (7-23) Creatinine 0.6 mg/dL (0.7-1.2) L Estimat Glomerular Filtration Rate > 60 mL/min (>60) Glucose Level 89 mg/dL (74-106) Calcium Level 9.3 mg/dL (8.6-10.2) Total Bilirubin 0.4 mg/dL (0.0-1.2) Aspartate Amino Transf (AST/SGOT) 17 U/L (5-40) Alanine Aminotransferase (ALT/SGPT) 7 U/L (3-41) Alkaline Phosphatase 51 U/L (40-129) Pro-B-Type Natriuretic Peptide 16351 pg/mL (0-125) H Total Protein 8.0 g/dL (6.6-8.7) Albumin 3.5 g/dL (3.5-5.2) Globulin 4.5 g/dL Albumin/Globulin Ratio 0.7 (1.0-2.7) L Microbiology Date/Time Source Procedure Growth Status 10/02/16 02:40 Sputum Gram Stain - Final Resulted 10/02/16 02:40 Sputum Sputum Culture - Preliminary Resulted Intake and Output 10/03/16 10/04/16 19:00 07:00 Intake Total 1700 ml 650 ml Output Total 500 ml 850 ml Balance 1200 ml -200 ml Intake Oral 1700 ml 650 ml Output Urine Total 500 ml 850 ml # Voids 6 # Bowel Movements 1 Objective gen - NAD. awake HEENT - NC/AT. NECK - no JVD. supple CVS - RRR. nl S1,S2 LUNGS - CTA B/L ABD - NT/ND EXT - no c/c/e. Left knee effusion (TTP to palpation) Assessment/Plan Assessment/Plan Assessment/Plan Problem List: (1) Diabetes mellitus - stable (2) HTN (hypertension) - stable (3) Atrial flutter - stable (4) Opiate dependence, continuous - On methadone. (5) CHF (congestive heart failure) - stable. euvolemic (6) COPD (chronic obstructive pulmonary disease) - Pulm following - Continue duoneb - stop solumedrol (7) Pneumonia s/p 5 days Zosyn and Vanco. change to Doxy 100mg PO BID (8) Dyspnea - back to baseline. on 3L O2 (8) left knee effusion - paracenthesis ordered --> send for WBC, Cx and uric acid JUSTUS RUFFIN M.D. Oct 04, 2016 18:36
[2016-10-04 19:00] VITALS: BP 102/65
[2016-10-04] MEDS ORDERED: Kenalog-40 1ml Vial IARTIC ONE (19:00)
--- NOTE | 2016-10-04 19:14 | Cardiology Report ---
APPROVED REPORT EKG Measurement Heart [id number] MD [id number] Sinus rhythm with 1st degree AV block with premature supraventricular complexes Right bundle branch block Possible anteroseptal infarct, age undetermined Abnormal ECG
[2016-10-04] MEDS: Indomethacin 25mg cap ORAL SCH (21:04)
--- NOTE | 2016-10-04 23:20 | Pulmonology Progress Note ---
Assessment/Plan Problems: (1) Pneumonia (2) COPD (chronic obstructive pulmonary disease) (3) Venous stasis ulcer Assessment/Plan feeling bettter iv antibiotics stopped, on po sputum pending med/surg MRSA nares Subjective Constitutional: Reports: no symptoms HEENT: Repors: no symptoms Respiratory: Reports: no symptoms Allergies: Coded Allergies: No Known Allergies (Unverified , 02/25/16) Objective Last 24 Hour Vital Signs Date Time Temp Pulse Resp B/P Pulse Ox O2 Delivery O2 Flow Rate FiO2 10/04/16 19:19 112 18 94 Nasal Cannula 2.0 28 10/04/16 19:18 28 10/04/16 19:17 106 18 94 Nasal Cannula 2.0 10/04/16 19:16 96 Nasal Cannula 2.0 10/04/16 19:16 Nasal Cannula 2.0 10/04/16 19:15 108 20 Nasal Cannula 4.0 10/04/16 19:00 96.0 106 20 102/65 85 Nasal Cannula 3.0 10/04/16 18:44 98.2 10/04/16 16:00 98.2 103 18 115/85 94 Nasal Cannula 3.0 10/04/16 13:00 Nasal Cannula 10/04/16 13:00 Room Air 10/04/16 11:44 97.6 92 19 133/65 97 Nasal Cannula 2.0 10/04/16 08:15 98.2 101 21 111/76 97 Room Air 10/04/16 07:57 Nasal Cannula 10/04/16 07:57 Room Air 10/04/16 07:56 Room Air 10/04/16 07:56 97 Room Air 10/04/16 05:06 98.2 92 20 124/84 97 Room Air 10/04/16 04:00 98.7 99 20 124/79 96 Nasal Cannula 10/03/16 23:58 28 10/03/16 23:57 114 18 88 Room Air 21 10/03/16 23:52 98.2 106 20 150/101 84 Room Air Intake and Output 10/03/16 10/04/16 19:00 07:00 Intake Total 1700 ml 650 ml Output Total 500 ml 850 ml Balance 1200 ml -200 ml Intake Oral 1700 ml 650 ml Output Urine Total 500 ml 850 ml # Voids 6 # Bowel Movements 1 General Appearance: WD/WN HEENT: normocephalic Respiratory/Chest: chest wall non-tender, lungs clear Cardiovascular: normal peripheral pulses, normal rate Abdomen: normal bowel sounds Genitourinary: normal external genitalia Skin: no rash 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 Microbiology Date/Time Source Procedure Growth Status 10/02/16 02:40 Sputum Gram Stain - Final Resulted 10/02/16 02:40 Sputum Sputum Culture - Preliminary Resulted Laboratory Tests 10/04/16 06:10: White Blood Count 7.5#, Red Blood Count 3.69L, Hemoglobin 11.0L, Hematocrit 35.2L, Mean Corpuscular Volume 95, Mean Corpuscular Hemoglobin 29.9, Mean Corpuscular Hemoglobin Concent 31.4L, Red Cell Distribution Width 14.0, Platelet Count 131L, Mean Platelet Volume 6.5, Neutrophils (%) (Auto) 79.7H, Lymphocytes (%) (Auto) 8.4L, Monocytes (%) (Auto) 11.6H, Eosinophils (%) (Auto) 0.0, Basophils (%) (Auto) 0.3, Sodium Level 138, Potassium Level 4.3, Chloride Level 94L, Carbon Dioxide Level 34H, Anion Gap 10, Blood Urea Nitrogen 16, Creatinine 0.6L, Estimat Glomerular Filtration Rate > 60, Glucose Level 89, Calcium Level 9.3, Total Bilirubin 0.4, Aspartate Amino Transf (AST/SGOT) 17, Alanine Aminotransferase (ALT/SGPT) 7, Alkaline Phosphatase 51, Pro-B-Type Natriuretic Peptide 09298D, Total Protein 8.0, Albumin 3.5, Globulin 4.5, Albumin/Globulin Ratio 0.7L, HIV (1&2) Antibody Rapid Negative 10/04/16 21:15: Body Fluid Source [Pending], Body Fluid Volume [Pending], Body Fluid RBC [ Pending], Body Fluid Total Nucleated Cells [Pending], Body Fluid Polynuclear WBCs (%) [Pending], Body Fluid Mononuclear WBCs (%) [Pending], Body Fluid Crystals [Pending] Current Medications Medications (Trade) Dose Ordered Sig/Aimee Route PRN Reason Start Time Stop Time Status Last Admin Dose Admin Acetaminophen (Tylenol) 650 mg Q4H PRN ORAL Mild Pain (Pain Scale 1-3) 10/01/16 19:00 10/31/16 18:59 Albuterol Sulfate (Proventil) 2.5 mg Q6HRT HHN 10/01/16 19:00 10/06/16 18:59 10/04/16 19:14 Albuterol/ Ipratropium (DuoNeb 0.5-3(2.5)mg/3ml) 3 ml Q6H PRN HHN Shortness of Breath 10/01/16 19:00 10/06/16 18:59 10/03/16 03:29 Dextrose (Dextrose 50%) STAT PRN IV Hypoglycemia 10/01/16 19:00 10/31/16 18:59 Doxycycline Monohydrate (Vibramycin) 100 mg EVERY 12 HOURS ORAL 10/04/16 21:00 10/06/16 20:59 10/04/16 21:04 Heparin Sodium (Porcine) (Heparin 5000 units/ml) 5,000 units EVERY 12 HOURS SUBQ 10/01/16 21:00 10/31/16 20:59 Indomethacin (Indocin) 25 mg Q8H ORAL 10/04/16 19:30 11/03/16 19:29 10/04/16 21:04 Ipratropium [place] (Atrovent) 500 mcg DAILY HHN 10/02/16 09:00 10/07/16 08:59 10/03/16 09:55 Methadone HCl (Methadone HCl) 40 mg QPM ORAL 10/02/16 16:30 10/09/16 16:29 10/04/16 16:36 Morphine Sulfate (Morphine Sulfate) 2 mg Q4H PRN IVP Moderate Pain (Pain Scale 4-6) 10/01/16 19:00 10/08/16 18:59 10/03/16 16:51 Morphine Sulfate (Morphine Sulfate) 5 mg Q4H PRN IVP Severe Pain (Pain Scale 7-10) 10/02/16 15:30 10/09/16 15:29 10/04/16 02:24 Promethazine HCl/ Codeine (Phenergan with Codeine) 5 ml Q4H PRN ORAL For Cough 10/01/16 19:00 10/31/16 18:59 Tramadol HCl (Ultram) 50 mg Q6H PRN ORAL Severe Pain (Pain Scale 7-10) 10/04/16 09:30 10/11/16 09:29 10/04/16 17:45 EYAL HAQUE Oct 04, 2016 23:20
[2016-10-04 23:40] LABS: BD FL VOLUME 60 mL
[2016-10-04 23:43] LABS: BD FL SOURCE SYNOVIAL FLUID
[2016-10-04 23:44] LABS: BODY FLUID NUCLEATED CELLS 40 /CUMM; BODY FLUID RBC 19485 /CUMM; MONONUCLEAR WBC 41 %; POLYMORPHONUCLEAR WBC 59 %
[2016-10-04 23:46] LABS: COMMENT,BODY FLUID BLOODY
[2016-10-05] VITALS: BP 122/79
--- NOTE | 2016-10-05 00:47 | Consultation ---
DATE OF CONSULTATION: 10/04/2016 ORTHOPEDIC CONSULTATION CHIEF COMPLAINT: Left knee pain. HISTORY OF PRESENT ILLNESS: The patient is a 71-year-old gentleman, who sustained a mechanical fall and he landed on his left knee. He had significant pain and swelling in the left knee. He is admitted for chronic obstructive pulmonary disease exacerbation. Orthopedic consultation was obtained for further care and recommendation for the left knee. The patient has pain in left knee. This started several days after the fall. Denies previous issues with the knee. PAST MEDICAL HISTORY: Reviewed from the intake chart. PAST SURGICAL HISTORY: Reviewed from the intake chart. MEDICATIONS: Reviewed from the intake chart. PHYSICAL EXAMINATION: Examination shows a large effusion on the left knee. There is no ecchymosis and no swelling. Pain along the medial joint line. Pain with patellar grinding. The patient is very apprehensive with any motion of the knee. Posterior calf is soft. Neurovascular is normal. IMAGING: Imaging study show relatively well-maintained joint space, mild medial compartment joint space narrowing, and moderate effusion. ASSESSMENT: Left knee hemarthrosis. DISCUSSION: At this point for comfort what I recommend is aspiration. Therefore under sterile conditions, a 60 mL of blood was aspirated from the knee. After the aspiration was completed, provided some pain relief with the intraarticular injection containing 0.25% Marcaine with epinephrine as well as 40 mg of Kenalog. This should allow to currently to mobilize the knee. If he has recurrent symptoms, given that he had significant hemarthrosis, an MRI of the knee to rule out meniscal ligamentum being most likely meniscal. Guido King M.D. DR: VAUGHN JOB#: [id number] CC: Justus Villa MD MTDD
[2016-10-05] MEDS: Albuterol ud Inhalation HHN SCH ×4 (01:11→19:00)
[2016-10-05] MEDS: Indomethacin 25mg cap ORAL SCH ×3 (02:57→19:02)
[2016-10-05 03:57] VITALS: BP 127/73
[2016-10-05 07:12] LABS: BASOPHILS % (AUTO) 0.5 % (0.0-2.0); EOSINOPHILS % (AUTO) 0.1 % (0.0-3.0); LYMPHOCYTES % (AUTO) 8.9 % (20.0-45.0); MEAN CORPUSCULAR HEMOGLOBIN 29.7 PG (27.0-31.0); MEAN CORPUSCULAR HGB CONC 32.1 G/DL (32.0-36.0); MEAN CORPUSCULAR VOLUME 93 FL (80-99); MEAN PLATELET VOLUME 6.7 FL (6.5-10.1); MONOCYTES % (AUTO) 8.2 % (1.0-10.0); NEUTROPHILS % (AUTO) 82.3 % (45.0-75.0); PLATELET COUNT 200 K/UL (150-450); RED BLOOD COUNT 4.57 M/UL (4.70-6.10); RED CELL DISTRIBUTION WIDTH 13.5 % (11.6-14.8); WHITE BLOOD COUNT 4.9 K/UL (4.8-10.8)
[2016-10-05 07:46] LABS: ALANINE AMINOTRANSFERASE 8 U/L (3-41); ALBUMIN/GLOBULIN RATIO 0.6 (1.0-2.7); ANION GAP 10 (5-15); ASPARTATE AMINO TRANSFERASE 20 U/L (5-40); CALCIUM 9.1 mg/dL (8.6-10.2); CARBON DIOXIDE 35 mEQ/L (20-30); CHLORIDE 91 mEQ/L (98-107); CREATININE 0.6 mg/dL (0.7-1.2); GLOMERULAR FILTRATION RATE > 60 mL/min (>60); HEMOLYSIS 1; MAGNESIUM 1.8 mg/dL (1.7-2.5); PHOSPHORUS 3.8 mg/dL (2.5-4.8); POTASSIUM 4.9 mEQ/L (3.4-4.9); SODIUM 136 mEQ/L (135-145); TOTAL PROTEIN 8.1 g/dL (6.6-8.7)
[2016-10-05 08:00] VITALS: BP_SYST 131; BP_SYST 88; BP_DIAS 55; BP_DIAS 63
[2016-10-05] MEDS: Ipratropium 0.02% Inh Soln 2.5ml UD HHN SCH (08:13)
[2016-10-05] MEDS: Morphine Sulfate 2mg/ml Inj IVP PRN (09:25)
[2016-10-05] MEDS: Heparin 5000 units/ml inj SUBQ SCH ×2 (09:27→21:11)
[2016-10-05 12:00] VITALS: BP 93/62
[2016-10-05 16:00] VITALS: BP 84/54
[2016-10-05 19:00] VITALS: BP 102/70
[2016-10-05] MEDS ORDERED: Tubing IV Secondary IV ONE (19:41)
--- NOTE | 2016-10-05 22:29 | Internal Med Progress Note ---
Subjective Physician Name Justus Ruffin Attending Physician Justus Ruffin M.D. Current Medications Medications (Trade) Dose Ordered Sig/Aimee Route PRN Reason Start Time Stop Time Status Last Admin Dose Admin Acetaminophen (Tylenol) 650 mg Q4H PRN ORAL Mild Pain (Pain Scale 1-3) 10/01/16 19:00 10/31/16 18:59 Albuterol Sulfate (Proventil) 2.5 mg Q6HRT HHN 10/01/16 19:00 10/06/16 18:59 10/05/16 19:00 Albuterol/ Ipratropium (DuoNeb 0.5-3(2.5)mg/3ml) 3 ml Q6H PRN HHN Shortness of Breath 10/01/16 19:00 10/06/16 18:59 10/03/16 03:29 Dextrose (Dextrose 50%) STAT PRN IV Hypoglycemia 10/01/16 19:00 10/31/16 18:59 Doxycycline Monohydrate (Vibramycin) 100 mg EVERY 12 HOURS ORAL 10/04/16 21:00 10/06/16 20:59 10/05/16 21:11 Heparin Sodium (Porcine) (Heparin 5000 units/ml) 5,000 units EVERY 12 HOURS SUBQ 10/01/16 21:00 10/31/16 20:59 10/05/16 21:11 Indomethacin (Indocin) 25 mg Q8H ORAL 10/04/16 19:30 11/03/16 19:29 10/05/16 19:02 Ipratropium [place] (Atrovent) 500 mcg DAILY HHN 10/02/16 09:00 10/07/16 08:59 10/03/16 09:55 Methadone HCl (Methadone HCl) 40 mg QPM ORAL 10/02/16 16:30 10/09/16 16:29 10/05/16 17:17 Morphine Sulfate (Morphine Sulfate) 2 mg Q4H PRN IVP Moderate Pain (Pain Scale 4-6) 10/01/16 19:00 10/08/16 18:59 10/05/16 09:25 Morphine Sulfate (Morphine Sulfate) 5 mg Q4H PRN IVP Severe Pain (Pain Scale 7-10) 10/02/16 15:30 10/09/16 15:29 10/04/16 02:24 Promethazine HCl/ Codeine (Phenergan with Codeine) 5 ml Q4H PRN ORAL For Cough 10/01/16 19:00 10/31/16 18:59 Tramadol HCl (Ultram) 50 mg Q6H PRN ORAL Severe Pain (Pain Scale 7-10) 10/04/16 09:30 10/11/16 09:29 10/04/16 17:45 Allergies: Coded Allergies: No Known Allergies (Unverified , 02/25/16) All Systems: reviewed and negative except above - having some left knee pain; coughing & SOB. Objective Last Vital Signs Date Time Temp Pulse Resp B/P Pulse Ox O2 Delivery O2 Flow Rate FiO2 10/05/16 19:57 Nasal Cannula 2.0 28 10/05/16 19:57 84 18 94 10/05/16 16:00 97.7 84/54 Laboratory Tests Test 10/05/16 05:40 White Blood Count 4.9 K/UL (4.8-10.8) Red Blood Count 4.57 M/UL (4.70-6.10) L Hemoglobin 13.6 G/DL (14.2-18.0) L Hematocrit 42.3 % (42.0-52.0) Mean Corpuscular Volume 93 FL (80-99) Mean Corpuscular Hemoglobin 29.7 PG (27.0-31.0) Mean Corpuscular Hemoglobin Concent 32.1 G/DL (32.0-36.0) Red Cell Distribution Width 13.5 % (11.6-14.8) Platelet Count 200 K/UL (150-450) # Mean Platelet Volume 6.7 FL (6.5-10.1) Neutrophils (%) (Auto) 82.3 % (45.0-75.0) H Lymphocytes (%) (Auto) 8.9 % (20.0-45.0) L Monocytes (%) (Auto) 8.2 % (1.0-10.0) Eosinophils (%) (Auto) 0.1 % (0.0-3.0) Basophils (%) (Auto) 0.5 % (0.0-2.0) Sodium Level 136 mEQ/L (135-145) Potassium Level 4.9 mEQ/L (3.4-4.9) Chloride Level 91 mEQ/L (98-107) L Carbon Dioxide Level 35 mEQ/L (20-30) H Anion Gap 10 (5-15) Blood Urea Nitrogen 20 mg/dL (7-23) Creatinine 0.6 mg/dL (0.7-1.2) L Estimat Glomerular Filtration Rate > 60 mL/min (>60) Glucose Level 104 mg/dL (74-106) Calcium Level 9.1 mg/dL (8.6-10.2) Phosphorus Level 3.8 mg/dL (2.5-4.8) Magnesium Level 1.8 mg/dL (1.7-2.5) Total Bilirubin 0.8 mg/dL (0.0-1.2) Aspartate Amino Transf (AST/SGOT) 20 U/L (5-40) Alanine Aminotransferase (ALT/SGPT) 8 U/L (3-41) Alkaline Phosphatase 53 U/L (40-129) Total Protein 8.1 g/dL (6.6-8.7) Albumin 3.3 g/dL (3.5-5.2) L Globulin 4.8 g/dL Albumin/Globulin Ratio 0.6 (1.0-2.7) L Intake and Output 10/04/16 10/05/16 19:00 07:00 Intake Total 720 ml 480 ml Output Total 1700 ml Balance -980 ml 480 ml Intake Oral 720 ml 480 ml Output Urine Total 1700 ml # Voids 4 7 Objective gen - NAD. awake HEENT - NC/AT. NECK - no JVD. supple CVS - RRR. nl S1,S2 LUNGS - CTA B/L ABD - NT/ND EXT - no c/c/e. left knee knee tenderness Assessment/Plan Assessment/Plan Assessment/Plan Problem List: (1) Diabetes mellitus - stable (2) HTN (hypertension) - stable (3) Atrial flutter - stable (4) Opiate dependence, continuous - On methadone (5) CHF (congestive heart failure) - stable. euvolemic (6) COPD (chronic obstructive pulmonary disease) - Pulm following - Continue duoneb - stop solumedrol (7) Pneumonia - s/p 5 days Zosyn and Vanco. - Doxy 100mg PO BID to complete 1 wk tx (8) Dyspnea - back to baseline. on 3L O2 (8) left knee effusion s/p arthrocenthesis - PT ordered - SNF placement because unable to walk without assistance. fall risk JUSTUS RUFFIN M.D. Oct 05, 2016 22:29
--- NOTE | 2016-10-05 23:32 | Pulmonology Progress Note ---
Assessment/Plan Problems: (1) Pneumonia (2) COPD (chronic obstructive pulmonary disease) (3) Venous stasis ulcer Assessment/Plan feeling bettter iv antibiotics stopped, on po sputum pending med/surg MRSA nares dc planning Subjective ROS Limited/Unobtainable: No Interval Events: doing better Allergies: Coded Allergies: No Known Allergies (Unverified , 02/25/16) Objective Last 24 Hour Vital Signs Date Time Temp Pulse Resp B/P Pulse Ox O2 Delivery O2 Flow Rate FiO2 10/05/16 19:57 Nasal Cannula 2.0 28 10/05/16 19:57 28 10/05/16 19:57 84 18 94 Nasal Cannula 2.0 28 10/05/16 19:57 94 Nasal Cannula 2.0 10/05/16 19:57 83 18 97 Nasal Cannula 2.0 28 10/05/16 19:00 98.2 87 18 102/70 Room Air 10/05/16 16:00 97.7 85 18 84/54 84 Room Air 10/05/16 13:05 80 18 94 Nasal Cannula 2.0 28 10/05/16 13:00 79 20 94 Nasal Cannula 2.0 28 10/05/16 13:00 28 10/05/16 12:00 96.6 80 16 93/62 100 Room Air 10/05/16 08:15 Nasal Cannula 10/05/16 08:14 Nasal Cannula 10/05/16 08:11 94 Nasal Cannula 2.0 10/05/16 08:11 Nasal Cannula 2.0 28 10/05/16 08:00 100.0 72 22 131/63 100 Nasal Cannula 2.0 10/05/16 08:00 96.6 74 18 88/55 100 Nasal Cannula 3.0 10/05/16 03:57 97.2 80 18 127/73 90 Nasal Cannula 2.0 10/05/16 01:13 79 18 94 Nasal Cannula 2.0 28 10/05/16 01:13 28 10/05/16 01:12 83 18 94 Nasal Cannula 2.0 10/05/16 00:00 97.5 85 18 122/79 90 Room Air Intake and Output 10/04/16 10/05/16 19:00 07:00 Intake Total 720 ml 480 ml Output Total 1700 ml Balance -980 ml 480 ml Intake Oral 720 ml 480 ml Output Urine Total 1700 ml # Voids 4 7 General Appearance: WD/WN HEENT: normocephalic, atraumatic Respiratory/Chest: chest wall non-tender, lungs clear Cardiovascular: normal peripheral pulses, normal rate Abdomen: normal bowel sounds, soft, non tender, no scars Extremities: no cyanosis Skin: no lesions, no ulcers Laboratory Tests 10/05/16 05:40: White Blood Count 4.9, Red Blood Count 4.57L, Hemoglobin 13.6L, Hematocrit 42.3 , Mean Corpuscular Volume 93, Mean Corpuscular Hemoglobin 29.7, Mean Corpuscular Hemoglobin Concent 32.1, Red Cell Distribution Width 13.5, Platelet Count 200#, Mean Platelet Volume 6.7, Neutrophils (%) (Auto) 82.3H, Lymphocytes (%) (Auto) 8.9L, Monocytes (%) (Auto) 8.2, Eosinophils (%) (Auto) 0.1, Basophils (%) (Auto) 0.5, Sodium Level 136, Potassium Level 4.9, Chloride Level 91L, Carbon Dioxide Level 35H, Anion Gap 10, Blood Urea Nitrogen 20, Creatinine 0.6L, Estimat Glomerular Filtration Rate > 60, Glucose Level 104, Calcium Level 9.1, Phosphorus Level 3.8, Magnesium Level 1.8, Total Bilirubin 0.8, Aspartate Amino Transf (AST/SGOT) 20, Alanine Aminotransferase (ALT/SGPT) 8, Alkaline Phosphatase 53, Total Protein 8.1, Albumin 3.3L, Globulin 4.8, Albumin/Globulin Ratio 0.6L Current Medications Medications (Trade) Dose Ordered Sig/Aimee Route PRN Reason Start Time Stop Time Status Last Admin Dose Admin Acetaminophen (Tylenol) 650 mg Q4H PRN ORAL Mild Pain (Pain Scale 1-3) 10/01/16 19:00 10/31/16 18:59 Albuterol Sulfate (Proventil) 2.5 mg Q6HRT HHN 10/01/16 19:00 10/06/16 18:59 10/05/16 19:00 Albuterol/ Ipratropium (DuoNeb 0.5-3(2.5)mg/3ml) 3 ml Q6H PRN HHN Shortness of Breath 10/01/16 19:00 10/06/16 18:59 10/03/16 03:29 Dextrose (Dextrose 50%) STAT PRN IV Hypoglycemia 10/01/16 19:00 10/31/16 18:59 Doxycycline Monohydrate (Vibramycin) 100 mg EVERY 12 HOURS ORAL 10/04/16 21:00 10/06/16 20:59 10/05/16 21:11 Heparin Sodium (Porcine) (Heparin 5000 units/ml) 5,000 units EVERY 12 HOURS SUBQ 10/01/16 21:00 10/31/16 20:59 10/05/16 21:11 Indomethacin (Indocin) 25 mg Q8H ORAL 10/04/16 19:30 11/03/16 19:29 10/05/16 19:02 Ipratropium [place] (Atrovent) 500 mcg DAILY HHN 10/02/16 09:00 10/07/16 08:59 10/03/16 09:55 Methadone HCl (Methadone HCl) 40 mg QPM ORAL 10/02/16 16:30 10/09/16 16:29 10/05/16 17:17 Morphine Sulfate (Morphine Sulfate) 2 mg Q4H PRN IVP Moderate Pain (Pain Scale 4-6) 10/01/16 19:00 10/08/16 18:59 10/05/16 09:25 Morphine Sulfate (Morphine Sulfate) 5 mg Q4H PRN IVP Severe Pain (Pain Scale 7-10) 10/02/16 15:30 10/09/16 15:29 10/04/16 02:24 Promethazine HCl/ Codeine (Phenergan with Codeine) 5 ml Q4H PRN ORAL For Cough 10/01/16 19:00 10/31/16 18:59 Tramadol HCl (Ultram) 50 mg Q6H PRN ORAL Severe Pain (Pain Scale 7-10) 10/04/16 09:30 10/11/16 09:29 10/04/16 17:45 EYAL HAQUE Oct 05, 2016 23:32
[2016-10-06] VITALS: BP 94/59
[2016-10-06] MEDS: Albuterol ud Inhalation HHN SCH ×3 (01:20→13:20)
[2016-10-06] MEDS: Indomethacin 25mg cap ORAL SCH ×3 (03:31→20:22)
[2016-10-06] MEDS: traMADol 50mg tab ORAL PRN ×2 (03:32→20:26)
[2016-10-06 04:00] VITALS: BP 97/63
[2016-10-06 08:13] VITALS: BP 100/63
--- NOTE | 2016-10-06 09:32 | Diagnostic Imaging Report ---
Indication: PAIN Technique: 4 views of the left knee Comparison: None Findings:There are vascular calcifications. No acute fractures. No dislocations. Joint spaces are preserved. Impression:No acute process
[2016-10-06] MEDS: Ipratropium 0.02% Inh Soln 2.5ml UD HHN SCH (09:41)
[2016-10-06] MEDS: Heparin 5000 units/ml inj SUBQ SCH ×2 (10:07→20:23)
[2016-10-06 11:39] VITALS: BP 105/56
[2016-10-06 15:38] VITALS: BP 91/57
--- NOTE | 2016-10-06 16:41 | Pulmonology Progress Note ---
Assessment/Plan Problems: (1) Pneumonia (2) COPD (chronic obstructive pulmonary disease) (3) Venous stasis ulcer Assessment/Plan continue current meds pain management med/surg dc planning Subjective ROS Limited/Unobtainable: No Interval Events: c/o usuall aches and pains Allergies: Coded Allergies: No Known Allergies (Unverified , 02/25/16) Objective Last 24 Hour Vital Signs Date Time Temp Pulse Resp B/P Pulse Ox O2 Delivery O2 Flow Rate FiO2 10/06/16 15:38 98.0 81 20 91/57 95 Nasal Cannula 2.0 10/06/16 13:22 85 18 95 Nasal Cannula 2.0 28 10/06/16 13:20 79 18 95 Nasal Cannula 2.0 28 10/06/16 13:20 28 10/06/16 11:39 98.2 75 19 105/56 95 Nasal Cannula 2.0 10/06/16 09:41 84 18 96 Nasal Cannula 2.0 28 10/06/16 09:41 28 10/06/16 08:13 98.4 80 19 100/63 95 Nasal Cannula 2.0 10/06/16 07:51 82 18 97 Nasal Cannula 2.0 28 10/06/16 07:47 95 Nasal Cannula 2.0 10/06/16 07:47 Nasal Cannula 2.0 28 10/06/16 07:47 85 18 95 Nasal Cannula 2.0 28 10/06/16 07:47 28 10/06/16 04:00 97.7 63 18 97/63 97 Nasal Cannula 2.0 10/06/16 01:20 81 18 94 Nasal Cannula 2.0 10/06/16 01:20 85 18 96 Nasal Cannula 2.0 10/06/16 01:20 28 10/06/16 00:00 97.9 74 18 94/59 89 Room Air 10/05/16 19:57 Nasal Cannula 2.0 28 10/05/16 19:57 28 10/05/16 19:57 84 18 94 Nasal Cannula 2.0 28 10/05/16 19:57 94 Nasal Cannula 2.0 10/05/16 19:57 83 18 97 Nasal Cannula 2.0 28 10/05/16 19:00 98.2 87 18 102/70 Room Air Intake and Output 10/05/16 10/06/16 19:00 07:00 Intake Total 480 ml 360 ml Balance 480 ml 360 ml Intake Oral 480 ml 360 ml # Voids 7 General Appearance: cachetic HEENT: normocephalic, atraumatic Respiratory/Chest: chest wall non-tender, lungs clear Cardiovascular: normal peripheral pulses, normal rate Abdomen: normal bowel sounds, soft, non tender Genitourinary: normal external genitalia Extremities: no cyanosis 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, normal mood/affect Microbiology Date/Time Source Procedure Growth Status 10/04/16 21:15 Synovial Fluid Gram Stain - Final Resulted 10/04/16 21:15 Synovial Fluid Body Fluid Culture - Preliminary NO GROWTH AFTER 24 HOURS Resulted Current Medications Medications (Trade) Dose Ordered Sig/Aimee Route PRN Reason Start Time Stop Time Status Last Admin Dose Admin Acetaminophen (Tylenol) 650 mg Q4H PRN ORAL Mild Pain (Pain Scale 1-3) 10/01/16 19:00 10/31/16 18:59 Albuterol Sulfate (Proventil) 2.5 mg Q6HRT HHN 10/01/16 19:00 10/06/16 18:59 10/06/16 13:20 Albuterol/ Ipratropium (DuoNeb 0.5-3(2.5)mg/3ml) 3 ml Q6H PRN HHN Shortness of Breath 10/01/16 19:00 10/06/16 18:59 10/03/16 03:29 Dextrose (Dextrose 50%) STAT PRN IV Hypoglycemia 10/01/16 19:00 10/31/16 18:59 Doxycycline Monohydrate (Vibramycin) 100 mg EVERY 12 HOURS ORAL 10/04/16 21:00 10/06/16 20:59 10/06/16 10:06 Heparin Sodium (Porcine) (Heparin 5000 units/ml) 5,000 units EVERY 12 HOURS SUBQ 10/01/16 21:00 10/31/16 20:59 10/06/16 10:07 Indomethacin (Indocin) 25 mg Q8H ORAL 10/04/16 19:30 11/03/16 19:29 10/06/16 12:34 Ipratropium [place] (Atrovent) 500 mcg DAILY HHN 10/02/16 09:00 10/07/16 08:59 10/06/16 09:41 Methadone HCl (Methadone HCl) 40 mg QPM ORAL 10/02/16 16:30 10/09/16 16:29 10/05/16 17:17 Morphine Sulfate (Morphine Sulfate) 2 mg Q4H PRN IVP Moderate Pain (Pain Scale 4-6) 10/01/16 19:00 10/08/16 18:59 10/05/16 09:25 Morphine Sulfate (Morphine Sulfate) 5 mg Q4H PRN IVP Severe Pain (Pain Scale 7-10) 10/02/16 15:30 10/09/16 15:29 10/04/16 02:24 Promethazine HCl/ Codeine (Phenergan with Codeine) 5 ml Q4H PRN ORAL For Cough 10/01/16 19:00 10/31/16 18:59 Tramadol HCl (Ultram) 50 mg Q6H PRN ORAL Severe Pain (Pain Scale 7-10) 10/04/16 09:30 10/11/16 09:29 10/06/16 03:32 EYAL HAQUE Oct 06, 2016 16:41
--- NOTE | 2016-10-06 17:27 | Internal Med Progress Note ---
Subjective Physician Name Justus Ruffin Attending Physician Justus Ruffin M.D. Current Medications Medications (Trade) Dose Ordered Sig/Aimee Route PRN Reason Start Time Stop Time Status Last Admin Dose Admin Acetaminophen (Tylenol) 650 mg Q4H PRN ORAL Mild Pain (Pain Scale 1-3) 10/01/16 19:00 10/31/16 18:59 Albuterol Sulfate (Proventil) 2.5 mg Q6HRT HHN 10/01/16 19:00 10/06/16 18:59 10/06/16 13:20 Albuterol/ Ipratropium (DuoNeb 0.5-3(2.5)mg/3ml) 3 ml Q6H PRN HHN Shortness of Breath 10/01/16 19:00 10/06/16 18:59 10/03/16 03:29 Dextrose (Dextrose 50%) STAT PRN IV Hypoglycemia 10/01/16 19:00 10/31/16 18:59 Doxycycline Monohydrate (Vibramycin) 100 mg EVERY 12 HOURS ORAL 10/04/16 21:00 10/06/16 20:59 10/06/16 10:06 Heparin Sodium (Porcine) (Heparin 5000 units/ml) 5,000 units EVERY 12 HOURS SUBQ 10/01/16 21:00 10/31/16 20:59 10/06/16 10:07 Indomethacin (Indocin) 25 mg Q8H ORAL 10/04/16 19:30 11/03/16 19:29 10/06/16 12:34 Ipratropium [place] (Atrovent) 500 mcg DAILY HHN 10/02/16 09:00 10/07/16 08:59 10/06/16 09:41 Methadone HCl (Methadone HCl) 40 mg QPM ORAL 10/02/16 16:30 10/09/16 16:29 10/05/16 17:17 Morphine Sulfate (Morphine Sulfate) 2 mg Q4H PRN IVP Moderate Pain (Pain Scale 4-6) 10/01/16 19:00 10/08/16 18:59 10/05/16 09:25 Morphine Sulfate (Morphine Sulfate) 5 mg Q4H PRN IVP Severe Pain (Pain Scale 7-10) 10/02/16 15:30 10/09/16 15:29 10/04/16 02:24 Promethazine HCl/ Codeine (Phenergan with Codeine) 5 ml Q4H PRN ORAL For Cough 10/01/16 19:00 10/31/16 18:59 Tramadol HCl (Ultram) 50 mg Q6H PRN ORAL Severe Pain (Pain Scale 7-10) 10/04/16 09:30 10/11/16 09:29 10/06/16 03:32 Allergies: Coded Allergies: No Known Allergies (Unverified , 02/25/16) All Systems: reviewed and negative except above - coughing and some SOB. on 2L O2 Objective Last Vital Signs Date Time Temp Pulse Resp B/P Pulse Ox O2 Delivery O2 Flow Rate FiO2 10/06/16 15:38 98.0 81 20 91/57 95 Nasal Cannula 2.0 10/06/16 13:22 28 Microbiology Date/Time Source Procedure Growth Status 10/04/16 21:15 Synovial Fluid Gram Stain - Final Resulted 10/04/16 21:15 Synovial Fluid Body Fluid Culture - Preliminary NO GROWTH AFTER 24 HOURS Resulted Intake and Output 10/05/16 10/06/16 19:00 07:00 Intake Total 480 ml 360 ml Balance 480 ml 360 ml Intake Oral 480 ml 360 ml # Voids 7 Objective gen - NAD. awake HEENT - NC/AT. NECK - no JVD. supple CVS - RRR. nl S1,S2 LUNGS - CTA B/L ABD - NT/ND EXT - no c/c/e. left knee tenderness Assessment/Plan Assessment/Plan Assessment/Plan Problem List: (1) Diabetes mellitus - stable (2) HTN (hypertension) - stable (3) Atrial flutter - stable (4) Opiate dependence, continuous - On methadone. (5) CHF (congestive heart failure) - stable. euvolemic (6) COPD (chronic obstructive pulmonary disease) - Pulm following - Continue duoneb - stop solumedrol (7) Pneumonia s/p 5 days Zosyn and Vanco. change to Doxy 100mg PO BID (8) Dyspnea - back to baseline. on 3L O2 (8) left knee effusion s/p arthrocenthesis - likely traumatic from fall - SNF placement. patient a fall risk. needs assistance when ambulating. - continue PT JUSTUS RUFFIN M.D. Oct 06, 2016 17:27
[2016-10-06 20:04] VITALS: BP 97/61
[2016-10-06] MEDS ORDERED: DuoNeb 0.5-3(2.5)mg/3ml neb HHN PRN (22:45)
[2016-10-07] VITALS: BP 103/64
[2016-10-07] MEDS: Morphine Sulfate 2mg/ml Inj IVP PRN (00:02)
[2016-10-07] MEDS: traMADol 50mg tab ORAL PRN ×3 (02:45→21:12)
[2016-10-07 04:00] VITALS: BP 117/66
[2016-10-07] MEDS: Indomethacin 25mg cap ORAL SCH ×3 (05:24→21:12)
[2016-10-07 08:21] VITALS: BP 117/68
[2016-10-07 08:52] LABS: BASOPHILS % (AUTO) 0.4 % (0.0-2.0); LYMPHOCYTES % (AUTO) 7.7 % (20.0-45.0); MEAN CORPUSCULAR HEMOGLOBIN 28.9 PG (27.0-31.0); MEAN CORPUSCULAR HGB CONC 30.8 G/DL (32.0-36.0); MEAN CORPUSCULAR VOLUME 94 FL (80-99); MEAN PLATELET VOLUME 6.7 FL (6.5-10.1); MONOCYTES % (AUTO) 18.2 % (1.0-10.0); NEUTROPHILS % (AUTO) 73.7 % (45.0-75.0); PLATELET COUNT 232 K/UL (150-450); RED BLOOD COUNT 4.12 M/UL (4.70-6.10); RED CELL DISTRIBUTION WIDTH 13.9 % (11.6-14.8); WHITE BLOOD COUNT 6.2 K/UL (4.8-10.8)
[2016-10-07] MEDS: Heparin 5000 units/ml inj SUBQ SCH ×2 (09:00→21:13)
[2016-10-07 09:03] LABS: ALANINE AMINOTRANSFERASE 10 U/L (3-41); ALBUMIN/GLOBULIN RATIO 0.7 (1.0-2.7); ANION GAP 7 (5-15); ASPARTATE AMINO TRANSFERASE 20 U/L (5-40); CALCIUM 8.9 mg/dL (8.6-10.2); CARBON DIOXIDE 36 mEQ/L (20-30); CHLORIDE 95 mEQ/L (98-107); CREATININE 0.7 mg/dL (0.7-1.2); GLOMERULAR FILTRATION RATE > 60 mL/min (>60); HEMOLYSIS 0; MAGNESIUM 2.2 mg/dL (1.7-2.5); PHOSPHORUS 2.3 mg/dL (2.5-4.8); POTASSIUM 4.9 mEQ/L (3.4-4.9); SODIUM 138 mEQ/L (135-145); TOTAL PROTEIN 8.4 g/dL (6.6-8.7)
[2016-10-07 11:48] VITALS: BP 103/76
--- NOTE | 2016-10-07 12:11 | Discharge Summary ---
Discharge Summary Hospital Course Date of Admission Sep 29, 2016 at 19:43 Date of Discharge Admitting Diagnosis copd exacerbation HPI Quintin Kasper is a 71 year old male who was admitted on Sep 29, 2016 at 19:43 for Chronic Obstructive Pulmonary Disease d/c summary dictated [id number] Discharge Condition Upon Discharge: stable Discharge Disposition Patient was discharged to HOME Discharge Diagnoses: SAMARA RUFFIN M.D. Oct 07, 2016 12:11
--- NOTE | 2016-10-07 12:17 | Discharge Instructions ---
Discharge Instructions Discharge Instructions Follow up with: pcp Call MD/Return to Hospital if: worsening symptoms Services at Discharge: physical therapy Activity: ambulate w/ assist only For Congestive Heart Failure Reminder Report to your physician any weight gain of 5 pounds or more in one week. SAMARA RUFFIN M.D. Oct 07, 2016 12:17
--- NOTE | 2016-10-07 12:58 | Diagnostic Imaging Report ---
Indication: SOB Technique: One view of the chest Comparison: 09/22/2016 Findings: Again demonstrated is bilateral interstitial disease, as well as some airspace disease in the bilateral infrahilar regions and retrocardiac region. There may be slightly increased parenchymal disease at the left lung base; findings are otherwise stable. Small left pleural effusion cannot be excluded. Impression: Bilateral interstitial and airspace disease; suspect mostly chronic based on similar findings on multiple earlier studies. However, superimposed acute process at the left lung base is a possibility Cannot rule out small left pleural effusion
[2016-10-07 15:31] VITALS: BP 106/65
--- NOTE | 2016-10-07 15:31 | Pulmonology Progress Note ---
Assessment/Plan Problems: (1) Pneumonia (2) COPD (chronic obstructive pulmonary disease) (3) Venous stasis ulcer Assessment/Plan continue current meds pain management off antibiotics med/surg dc planning Subjective ROS Limited/Unobtainable: No Interval Events: improving Allergies: Coded Allergies: No Known Allergies (Unverified , 02/25/16) Objective Last 24 Hour Vital Signs Date Time Temp Pulse Resp B/P Pulse Ox O2 Delivery O2 Flow Rate FiO2 10/07/16 11:48 97.8 83 18 103/76 95 Nasal Cannula 2.0 10/07/16 09:56 97.8 10/07/16 09:21 80 18 96 Nasal Cannula 2.0 28 10/07/16 09:11 28 10/07/16 09:11 78 18 92 Nasal Cannula 2.0 28 10/07/16 09:10 Nasal Cannula 2.0 28 10/07/16 09:10 92 Nasal Cannula 2.0 28 10/07/16 08:21 97.9 82 19 117/68 95 Nasal Cannula 2.0 10/07/16 04:00 97.9 89 20 117/66 95 Room Air 10/07/16 00:00 97.5 72 20 103/64 90 Room Air 10/06/16 20:04 98.1 86 22 97/61 89 Nasal Cannula 2.0 10/06/16 19:05 Nasal Cannula 2.0 28 10/06/16 19:05 92 Nasal Cannula 2.0 28 10/06/16 15:38 98.0 81 20 91/57 95 Nasal Cannula 2.0 Intake and Output 10/06/16 10/07/16 19:00 07:00 Intake Total 690 ml Output Total 650 ml 725 ml Balance 40 ml -725 ml Intake Oral 690 ml Output Urine Total 650 ml 725 ml # Bowel Movements 1 General Appearance: cachetic HEENT: normocephalic, atraumatic Respiratory/Chest: chest wall non-tender, lungs clear Cardiovascular: normal peripheral pulses, normal rate Abdomen: normal bowel sounds, soft, non tender Genitourinary: normal external genitalia Extremities: no clubbing Skin: no rash Microbiology Date/Time Source Procedure Growth Status 10/04/16 21:15 Synovial Fluid Gram Stain - Final Resulted 10/04/16 21:15 Synovial Fluid Body Fluid Culture - Preliminary NO GROWTH AFTER 48 HOURS Resulted Laboratory Tests 10/07/16 08:30: White Blood Count 6.2, Red Blood Count 4.12L, Hemoglobin 11.9L, Hematocrit 38.7L , Mean Corpuscular Volume 94, Mean Corpuscular Hemoglobin 28.9, Mean Corpuscular Hemoglobin Concent 30.8L, Red Cell Distribution Width 13.9, Platelet Count 232, Mean Platelet Volume 6.7, Neutrophils (%) (Auto) 73.7, Lymphocytes (%) (Auto) 7.7L, Monocytes (%) (Auto) 18.2H, Eosinophils (%) (Auto) 0.0, Basophils (%) (Auto) 0.4, Sodium Level 138, Potassium Level 4.9, Chloride Level 95L, Carbon Dioxide Level 36H, Anion Gap 7, Blood Urea Nitrogen 28H, Creatinine 0.7, Estimat Glomerular Filtration Rate > 60, Glucose Level 91, Calcium Level 8.9, Phosphorus Level 2.3L, Magnesium Level 2.2, Total Bilirubin 0.5, Aspartate Amino Transf (AST/SGOT) 20, Alanine Aminotransferase (ALT/SGPT) 10, Alkaline Phosphatase 57, Total Protein 8.4, Albumin 3.7, Globulin 4.7, Albumin/Globulin Ratio 0.7L Current Medications Medications (Trade) Dose Ordered Sig/Aimee Route PRN Reason Start Time Stop Time Status Last Admin Dose Admin Acetaminophen (Tylenol) 650 mg Q4H PRN ORAL Mild Pain (Pain Scale 1-3) 10/01/16 19:00 10/31/16 18:59 Albuterol/ Ipratropium (DuoNeb 0.5-3(2.5)mg/3ml) 3 ml Q4H PRN HHN Shortness of Breath 10/06/16 22:45 10/11/16 22:44 10/07/16 09:11 Dextrose (Dextrose 50%) STAT PRN IV Hypoglycemia 10/01/16 19:00 10/31/16 18:59 Heparin Sodium (Porcine) (Heparin 5000 units/ml) 5,000 units EVERY 12 HOURS SUBQ 10/01/16 21:00 10/31/16 20:59 10/07/16 09:00 Indomethacin (Indocin) 25 mg Q8H ORAL 10/04/16 19:30 11/03/16 19:29 10/07/16 12:47 Methadone HCl (Methadone HCl) 40 mg QPM ORAL 10/02/16 16:30 10/09/16 16:29 10/06/16 17:47 Morphine Sulfate (Morphine Sulfate) 2 mg Q4H PRN IVP Moderate Pain (Pain Scale 4-6) 10/01/16 19:00 10/08/16 18:59 10/05/16 09:25 Morphine Sulfate (Morphine Sulfate) 5 mg Q4H PRN IVP Severe Pain (Pain Scale 7-10) 10/02/16 15:30 10/09/16 15:29 10/04/16 02:24 Promethazine HCl/ Codeine (Phenergan with Codeine) 5 ml Q4H PRN ORAL For Cough 10/01/16 19:00 10/31/16 18:59 Tramadol HCl (Ultram) 50 mg Q6H PRN ORAL Severe Pain (Pain Scale 7-10) 10/04/16 09:30 10/11/16 09:29 10/07/16 08:57 EYAL HAQUE Oct 07, 2016 15:31
[2016-10-07 20:00] VITALS: BP 113/90
[2016-10-08 00:03] VITALS: BP 130/69
[2016-10-08] MEDS: Indomethacin 25mg cap ORAL SCH ×2 (03:30→11:19)
--- NOTE | 2016-10-08 03:37 | Discharge Summary ---
DATE OF ADMISSION: 09/29/2016 DATE OF DISCHARGE: 10/07/2016 PROCEDURES DONE HERE: Left knee arthrocentesis for left knee hemorrhagic effusion secondary to trauma. SIGNIFICANT FINDINGS: None. BRIEF HOSPITAL COURSE AND SUMMARY: This is a 71-year-old male with history of congestive heart failure, diastolic dysfunction, chronic obstructive pulmonary disease, diabetes, hypertension, constipation secondary to methadone, atrial flutter, and history of heroin use on methadone, who presented to the hospital with shortness of breath and cough. He was treated for chronic obstructive pulmonary disease exacerbation and pneumonia. He has completed his antibiotics here. The patient had a traumatic fall and ended up having a left knee hemarthrosis status post arthrocentesis likely traumatic from a fall. The patient is now stable for discharge. I will have physical therapy to see him. He is able walk with front wheel walker over 100 feet with no assistance. He does have a rn new graduate at home. He will be arranged to have home health with physical therapy. DISCHARGE CONDITION: Stable. DISCHARGE INSTRUCTIONS: The patient is to follow up with PCP. The patient is to return to the hospital for worsening condition or symptoms. The patient is to be on regular diet. The patient is to walk with front wheel walker. The patient have a rn new graduate with him at all times. DISCHARGE DIAGNOSES: 1. Pneumonia. 2. Chronic obstructive pulmonary disease exacerbation. 3. Congestive heart failure exacerbation. 4. Diabetes. 5. Hypertension. 6. Atrial flutter. 7. Opiate dependence on methadone. 8. Left knee hemarthrosis status post fall. TIME SPENT: Time spent on dictation greater than 35 minutes. Justus Villa MD DR: CLAUDIA/Jerry JOB#: [id number] CC:
[2016-10-08 04:00] VITALS: BP 127/82
[2016-10-08 08:00] VITALS: BP 116/78
[2016-10-08] MEDS: Heparin 5000 units/ml inj SUBQ SCH (09:16)
[2016-10-08] MEDS: traMADol 50mg tab ORAL PRN (11:19)
[2016-10-08 12:00] VITALS: BP 122/67
[2016-10-08] MEDS ORDERED: ACETAMINOPHEN-1 EAC2 ORAL (14:43)
--- NOTE | 2016-10-08 14:45 | Internal Med Progress Note ---
Subjective Physician Name Justus Ruffin Attending Physician Justus Ruffin M.D. Current Medications Medications (Trade) Dose Ordered Sig/Aimee Route PRN Reason Start Time Stop Time Status Last Admin Dose Admin Acetaminophen (Tylenol) 650 mg Q4H PRN ORAL Mild Pain (Pain Scale 1-3) 10/01/16 19:00 10/31/16 18:59 Albuterol/ Ipratropium (DuoNeb 0.5-3(2.5)mg/3ml) 3 ml Q4H PRN HHN Shortness of Breath 10/06/16 22:45 10/11/16 22:44 10/07/16 09:11 Dextrose (Dextrose 50%) STAT PRN IV Hypoglycemia 10/01/16 19:00 10/31/16 18:59 Heparin Sodium (Porcine) (Heparin 5000 units/ml) 5,000 units EVERY 12 HOURS SUBQ 10/01/16 21:00 10/31/16 20:59 10/08/16 09:16 Indomethacin (Indocin) 25 mg Q8H ORAL 10/04/16 19:30 11/03/16 19:29 10/08/16 11:19 Methadone HCl (Methadone HCl) 40 mg QPM ORAL 10/02/16 16:30 10/09/16 16:29 10/07/16 16:56 Morphine Sulfate (Morphine Sulfate) 2 mg Q4H PRN IVP Moderate Pain (Pain Scale 4-6) 10/01/16 19:00 10/08/16 18:59 10/05/16 09:25 Morphine Sulfate (Morphine Sulfate) 5 mg Q4H PRN IVP Severe Pain (Pain Scale 7-10) 10/02/16 15:30 10/09/16 15:29 10/04/16 02:24 Promethazine HCl/ Codeine (Phenergan with Codeine) 5 ml Q4H PRN ORAL For Cough 10/01/16 19:00 10/31/16 18:59 10/08/16 01:40 Tramadol HCl (Ultram) 50 mg Q6H PRN ORAL Severe Pain (Pain Scale 7-10) 10/04/16 09:30 10/11/16 09:29 10/08/16 11:19 Allergies: Coded Allergies: No Known Allergies (Unverified , 02/25/16) Subjective having left knee pain no CP or SOB 12 pt ROS negative except above positives Objective Last Vital Signs Date Time Temp Pulse Resp B/P Pulse Ox O2 Delivery O2 Flow Rate FiO2 10/08/16 12:40 96.6 10/08/16 12:00 82 18 122/67 95 Nasal Cannula 2.0 10/08/16 07:56 36 Intake and Output 10/07/16 10/08/16 19:00 07:00 Intake Total 600 ml 120 ml Output Total 400 ml 225 ml Balance 200 ml -105 ml Intake Oral 600 ml 120 ml Output Urine Total 400 ml 225 ml # Voids 2 Objective gen - NAD. awake HEENT - NC/AT. NECK - no JVD. supple CVS - RRR. nl S1,S2 LUNGS - CTA B/L ABD - NT/ND EXT - no c/c/e. left knee tenderness Assessment/Plan Assessment/Plan Assessment/Plan Problem List: (1) Diabetes mellitus - stable (2) HTN (hypertension) - stable (3) Atrial flutter - stable (4) Opiate dependence, continuous - On methadone. (5) CHF (congestive heart failure) - stable. euvolemic (6) COPD (chronic obstructive pulmonary disease) - Pulm following - Continue duoneb - stop solumedrol (7) Pneumonia - completed abx (8) Dyspnea - back to baseline. on 3L O2 (8) left knee hemiarthrosis s/p arthrocenthesis - likely traumatic from fall - d/c to SNF today - tylenol # 4 prn pain JUSTUS RUFFIN M.D. Oct 08, 2016 14:45
== END 2016-10-08 19:02 | DRG 139 ==
LOC: EDBD 18:17 → EMR 19:13 → 2E 19:43 → EDBEDREQ 20:26 → 4E 10-01 18:19
PROC: 0S9D3ZZ Drainage of Left Knee Joint, Percutaneous Approach (ICD-10-PCS; principal; 2016-10-04)
DX: J18.9 Pneumonia, unspecified organism (principal); I50.33 Acute on chronic diastolic (congestive) heart failure; R64 Cachexia; E44.0 Moderate protein-calorie malnutrition; I27.2 Other secondary pulmonary hypertension; F11.20 Opioid dependence, uncomplicated; I48.92 Unspecified atrial flutter; M25.062 Hemarthrosis, left knee; I10 Essential (primary) hypertension; F17.200 Nicotine dependence, unspecified, uncomplicated; J44.1 Chronic obstructive pulmonary disease with (acute) exacerbation; E11.9 Type 2 diabetes mellitus without complications; S89.92XD Unspecified injury of left lower leg, subsequent encounter; W19.XXXD Unspecified fall, subsequent encounter; I89.0 Lymphedema, not elsewhere classified; K74.60 Unspecified cirrhosis of liver; I87.2 Venous insufficiency (chronic) (peripheral); I07.1 Rheumatic tricuspid insufficiency; Z68.1 Body mass index [BMI] 19.9 or less, adult
CPT/HCPCS: 36415; 71010; 80048; 80053; 80202; 82105; 82378; 82550; 82553; 83735; 83880; 84100; 84484; 85007; 85025; 86301; 86703; 86710; 87070; 87081; 87181; 87205; 89051; 89060; 93005; 94640; 94664; 94760; J7620

== ENCOUNTER 2018-09-02 14:02 | Emergency (ER) | payer MEDICARE, OTHER ==
[~2018-09-02] VITALS: Ht 172.7 cm; Wt 59.0 kg
[~2018-09-02 14:02] MED LIST changes: +ACETAMINOPHEN-1 EAC2 ORAL
[2018-09-02 14:05] VITALS: BP 150/80
[2018-09-02 15:00] VITALS: BP 150/80
--- NOTE | 2018-09-03 14:54 | Emergency Room Report ---
History of Present Illness General Chief Complaint: Altered Level of Consciousness Source: Patient, Medical Record Present Illness HPI 73-year-old male presents ED for evaluation. Patient brought in by EMS for reported altered mental status. Upon arrival patient is alert oriented 3. States he feels fine. Denies any chest pain or shortness of breath. Denies alcohol or drug use. Patient states he was discharged from [facility] today for "heart problems". States that he was sent home and then he went to the convenience store. No other aggravating relieving factors. Denies any other associated symptoms Allergies: Coded Allergies: No Known Allergies (Unverified , 02/25/16) Patient History Past Medical History: DM, HTN, asthma, COPD, psych hx, HIV Past Surgical History: none Pertinent Family History: none Social History: Denies: smoking, alcohol use, drug use Immunizations: UTD Reviewed Nursing Documentation: PMH: Agreed; PSxH: Agreed Nursing Documentation-PMH Past Medical History: No History, Except For Hx Cardiac Problems: Yes - HIV+ Hx Hypertension: Yes Hx Pacemaker: No Hx Asthma: Yes Hx COPD: Yes Hx Diabetes: Yes Hx Cancer: No Hx Gastrointestinal Problems: No History Of Psychiatric Problem: Yes Hx Neurological Problems: No Review of Systems All Other Systems: negative except mentioned in HPI Physical Exam Vital Signs Date Time Temp Pulse Resp B/P (MAP) Pulse Ox O2 Delivery O2 Flow Rate FiO2 09/02/18 13:49 97.3 120 18 150/80 96 Room Air Sp02 EP Interpretation: reviewed, normal General Appearance: no apparent distress, alert, GCS 15, non-toxic Head: normocephalic, atraumatic Eyes: bilateral eye normal inspection, bilateral eye PERRL ENT: hearing grossly normal, normal pharynx, no angioedema, normal voice Neck: full range of motion, supple/symm/no masses Respiratory: chest non-tender, lungs clear, normal breath sounds, speaking full sentences Cardiovascular #1: regular rate, rhythm, no edema Cardiovascular #2: 2+ carotid (R), 2+ carotid (L), 2+ radial (R), 2+ radial (L) , 2+ dorsalis pedis (R), 2+ dorsalis pedis (L) Gastrointestinal: normal bowel sounds, non tender, soft, non-distended, no guarding, no rebound Rectal: deferred Genitourinary: normal inspection, no CVA tenderness Musculoskeletal: back normal, gait/station normal, normal range of motion, non- tender Neurologic: alert, oriented x3, responsive, motor strength/tone normal, sensory intact, speech normal Psychiatric: judgement/insight normal, memory normal, mood/affect normal, no suicidal/homicidal ideation Reflexes: 3+ bicep (R), 3+ bicep (L), 3+ tricep (R), 3+ tricep (L), 3+ knee (R) , 3+ knee (L) Skin: normal color, no rash, warm/dry, well hydrated Lymphatic: no adenopathy Medical Decision Making Diagnostic Impression: Primary Impression: Altered level of consciousness ER Course Hospital Course 73-year-old M presents to ED with altered mental status. AAOX3 here Differential diagnoses include: Psychosis, EtOH, drug abuse Clinical course patient placed on stretcher. On gambling monitor. After initial history, exam reveals an elderly male in no acute distress. Physical exam unremarkable. Lungs clear. Abdomen soft. Vital stable. Patient has been seen here previously and has history of substance abuse in the past. Denies any at this time. Is refusing any blood work or other testing. Wants to be discharged. Understands the risks of leaving. Patient has competency to make her own decisions. Signed AMA form. transportation arranged for the patient i. I feel this is a highly complex case requiring extensive working including EKG/Rhythm strip, Xray/CT/US, Blood/urine lab work, repeat exams while in ED, and administration of strong opiates/narcotics for pain control, admission to hospital or close patient follow up. Diagnosis - ALOC patient left AMA Last Vital Signs Date Time Temp Pulse Resp B/P (MAP) Pulse Ox O2 Delivery O2 Flow Rate FiO2 09/02/18 15:00 97.3 113 18 150/80 96 Room Air Status: improved Disposition: AGAINST MEDICAL ADVICE Condition: Unknown Referrals: NOT CHOSEN IPA/,REFERRING (PCP) Alvarado Morrison MD Sep 03, 2018 14:54
== END 2018-09-02 15:00 | disposition left against medical advice (07) ==
LOC: EDBD 14:02 → EMR 15:00
DX: R41.82 Altered mental status, unspecified (principal); Z53.21 Procedure and treatment not carried out due to patient leaving prior to being seen by health care provider; E11.9 Type 2 diabetes mellitus without complications; I10 Essential (primary) hypertension; J44.9 Chronic obstructive pulmonary disease, unspecified; Z21 Asymptomatic human immunodeficiency virus [HIV] infection status
CPT/HCPCS: 99283

== ENCOUNTER 2018-10-16 13:10 | Inpatient (IN) | payer MEDICARE, OTHER ==
[~2018-10-16] VITALS: Ht 170.2 cm; Wt 49.5 kg
--- NOTE | 2018-10-16 13:20 | NUR ---
ED Nurse Note: pt brought in by JULISA c/o ALAPRIL, per EMS report, bystander called 911 due to pt' acting different and not himself. pt AA&ox1, resistive to care, noted congestion, called PEGGY ALTAMIRANO at the bedside, unable to assess pt at this time will try again.
[2018-10-16] MEDS ORDERED: Solu-MEDROL 125mg Inj IVP ONE (13:45)
[2018-10-16] MEDS ORDERED: Albuterol/Ipratropium 3ml neb HHN ONE (13:45)
--- NOTE | 2018-10-16 13:47 | NUR ---
ED Nurse Note:PMH updated based on prior admissions to ED
[2018-10-16 14:15] VITALS: BP 111/72
[2018-10-16] MEDS: Ipratropium 0.02% Inh Soln 2.5ml UD HHN SCH ×2 (14:57→15:00)
[2018-10-16] MEDS: Albuterol ud Inhalation HHN SCH ×2 (14:57→15:00)
--- NOTE | 2018-10-16 15:00 | NUR ---
ED Nurse Note: pt continue to have resp distress and congestion, ERMD notified, pt resistive to care and keep taking mask off, received order for ativan. will cont monitor.
--- NOTE | 2018-10-16 15:17 | Emergency Room Report ---
History of Present Illness General Chief Complaint: Altered Level of Consciousness Source: EMS Present Illness HPI 73-year-old male presents ED for evaluation. Patient presenting by EMS for altered mental status. Friend states that patient appeared altered. Upon arrival patient wheezing and short of breath. Patient unable to provide any history but patient is well-known to C. History of CHF. Asthma and COPD. Also known history of drug use. No reported head injury. no other aggravating or relieving factors. no other associated symptoms . Allergies: Uncoded Allergies: unkown (Allergy, Unknown, 10/16/18) Patient History Past Medical History: HTN, asthma, COPD, HIV Pertinent Family History: none Social History: Denies: smoking, alcohol use, drug use Immunizations: UTD Reviewed Nursing Documentation: PMH: Agreed; PSxH: Agreed Nursing Documentation-PMH Past Medical History: Deferred Hx Cardiac Problems: Yes - HIV+ Hx Hypertension: Yes Hx Pacemaker: No Hx Asthma: Yes Hx COPD: Yes Hx Diabetes: Yes Hx Cancer: No Hx Gastrointestinal Problems: No Hx Neurological Problems: No Review of Systems All Other Systems: negative except mentioned in HPI Physical Exam Vital Signs Date Time Temp Pulse Resp B/P (MAP) Pulse Ox O2 Delivery O2 Flow Rate FiO2 10/16/18 13:12 97.5 108 28 110/76 100 Room Air Sp02 EP Interpretation: reviewed, normal General Appearance: alert, GCS 15, non-toxic, mild distress, lethargic Head: normocephalic Eyes: bilateral eye normal inspection, bilateral eye PERRL ENT: normal ENT inspection Neck: normal inspection Respiratory: crackles, rales, wheezing Cardiovascular #1: regular rate, rhythm, no edema Gastrointestinal: normal inspection Rectal: deferred Genitourinary: no CVA tenderness Musculoskeletal: normal inspection Neurologic: other - lethargic Psychiatric: anxious Skin: normal inspection Lymphatic: normal inspection Procedures Critical Care Time Critical Care Time i. I feel this is a highly complex case requiring extensive working including EKG/Rhythm strip, Xray/CT/US, Blood/urine lab work, repeat exams while in ED, and administration of strong opiates/narcotics for pain control, admission to hospital or close patient follow up. Total time: 60 min bedside evaluation and treatment excludes procedures (EKG). Reason for critical care: AMS, hypoxia, resp distress. hypercapnia Possible complications: hypotension, hypertension, MS, shock, arrhythmias, metabolic acidosis, end organ damage, respiratory failure. Interventions: labs, EKG, CXR, nebs, BIPAP, ABG, antibiotics. reasessment. discussion with pulmonary Course: Patient presents with shortness of breath, altered. History of substance abuse. Retractions on exam. Started on breathing treatments. Patient not cooperative with exam. Given Ativan. Patient remains short of breath. Started on BiPAP. ABG shows acidosis and hypercapnia. Chest x-ray shows infiltrate. BNP elevated, troponin indeterminate. No EKG changes. Given antibiotics. Consultations: nursing staff, EMS, family Performed by: Dr Morrison Tolerated well condition = seriousl j. because of unstable vital signs this patient had a condition that could potentially threaten life or limb. I feel this is a critical patient who required my full attention while patient was considered critical. Total Critical Care Time excluding procedures was greater than 35 minutes Medical Decision Making Diagnostic Impression: Primary Impression: COPD (chronic obstructive pulmonary disease) Qualified Codes: J44.9 - Chronic obstructive pulmonary disease, unspecified Additional Impressions: CHF (congestive heart failure) Qualified Codes: I50.9 - Heart failure, unspecified Opiate dependence, continuous Hypercapnia ER Course Hospital Course 73-year-old M presenting to ED with SOB. h/o COPD Differential diagnoses include: Pneumonia, CHF exacerbation, pneumothorax, fluid overload Clinical course Patient placed on stretcher. On environmental monitoring specialist with stable vitals. After initial history and physical, I ordered nebulizer treatments. I ordered labs, IV fluids, EKG, chest x-ray, UDS Labs - no leukocytosis noted, hemoglobin/hematocrit stable, electrolytes okay, trop 0.137, BNP > 9000 ABG shows pH 7.198, PCO2 77 patient placed on BIPAP Patient not cooperative during exam. Given Ativan. Screen shows positive for opiates CXR - bilaeral effusions, infiltrates Given antibiotics. Respiratory status improved on BiPAP Case discussed with Dr. Grewal and he agreed to the patient to his service for further care and support I feel this is a highly complex case requiring extensive working including EKG/ Rhythm strip, Xray/CT/US, Blood/urine lab work, repeat exams while in ED, and administration of strong opiates/narcotics for pain control, admission to hospital or close patient follow up. Diagnosis - COPD, CHF, opiate dependdence, hypercapnia Patient admitted to SDU in serious condition Labs Test 10/16/18 14:26 10/16/18 17:10 Arterial Blood pH 7.198 (7.350-7.450) Arterial Blood Partial Pressure CO2 77.0 mmHg (35.0-45.0) Arterial Blood Partial Pressure O2 93.1 mmHg (75.0-100.0) Arterial Blood HCO3 29.3 mmol/L (22.0-26.0) Arterial Blood Oxygen Saturation 94.6 % (95-100) Arterial Blood Base Excess -0.2 (-2-2) Cameron Test Positive White Blood Count 6.9 K/UL (4.8-10.8) Red Blood Count 4.29 M/UL (4.70-6.10) Hemoglobin 11.3 G/DL (14.2-18.0) Hematocrit 38.5 % (42.0-52.0) Mean Corpuscular Volume 90 FL (80-99) Mean Corpuscular Hemoglobin 26.4 PG (27.0-31.0) Mean Corpuscular Hemoglobin Concent 29.4 G/DL (32.0-36.0) Red Cell Distribution Width 17.8 % (11.6-14.8) Platelet Count 181 K/UL (150-450) Mean Platelet Volume 7.4 FL (6.5-10.1) Neutrophils (%) (Auto) 74.7 % (45.0-75.0) Lymphocytes (%) (Auto) 10.5 % (20.0-45.0) Monocytes (%) (Auto) 12.5 % (1.0-10.0) Eosinophils (%) (Auto) 1.0 % (0.0-3.0) Basophils (%) (Auto) 1.3 % (0.0-2.0) Prothrombin Time 11.0 SEC (9.30-11.50) Prothromb Time International Ratio 1.0 (0.9-1.1) Activated Partial Thromboplast Time 29 SEC (23-33) Sodium Level 138 MMOL/L (136-145) Potassium Level 4.2 MMOL/L (3.5-5.1) Chloride Level 103 MMOL/L (98-107) Carbon Dioxide Level 31 MMOL/L (21-32) Anion Gap 4 mmol/L (5-15) Blood Urea Nitrogen 10 mg/dL (7-18) Creatinine 1.0 MG/DL (0.55-1.30) Estimat Glomerular Filtration Rate mL/min (>60) Glucose Level 81 MG/DL (74-106) Calcium Level 8.1 MG/DL (8.5-10.1) Total Bilirubin 0.9 MG/DL (0.2-1.0) Aspartate Amino Transf (AST/SGOT) 45 U/L (15-37) Alanine Aminotransferase (ALT/SGPT) 40 U/L (12-78) Alkaline Phosphatase 95 U/L (46-116) Total Creatine Kinase 118 U/L (26-308) Creatine Kinase MB 5.2 NG/ML (0.0-3.6) Creatine Kinase MB Relative Index 4.4 Troponin I 0.137 ng/mL (0.000-0.056) Pro-B-Type Natriuretic Peptide 9672 pg/mL (0-125) Total Protein 7.7 G/DL (6.4-8.2) Albumin 3.4 G/DL (3.4-5.0) Globulin 4.3 g/dL Albumin/Globulin Ratio 0.8 (1.0-2.7) Urine Opiates Screen Positive (NEGATIVE) Urine Barbiturates Screen Negative (NEGATIVE) Phencyclidine (PCP) Screen Negative (NEGATIVE) Urine Amphetamines Screen Negative (NEGATIVE) Urine Benzodiazepines Screen Negative (NEGATIVE) Urine Cocaine Screen Negative (NEGATIVE) Urine Marijuana (THC) Screen Negative (NEGATIVE) Serum Alcohol < 3 mg/dL EKG Diagnostic Results Rate: tachycardiac Rhythm: NSR ST Segments: no acute changes ASA given to the pt in ED: No Rhythm Strip Diag. Results EP Interpretation: yes Rhythm: NSR, no PVC's, no ectopy Chest X-Ray Diagnostic Results Chest X-Ray Diagnostic Results : Chest X-Ray Ordered: Yes # of Views/Limited/Complete: 1 View Indication: Shortness of Breath EP Interpretation: Yes Interpretation: no pneumothorax, other - bialteral mid, lower lung infiltrates, atelecatsias, effusion Impression: Other - chf/pneumonia Electronically Signed by: Electronically signed by Alvarado Morrison MD Last Vital Signs Date Time Temp Pulse Resp B/P (MAP) Pulse Ox O2 Delivery O2 Flow Rate FiO2 10/16/18 13:12 97.5 108 28 110/76 100 Room Air Status: improved Disposition: ADMITTED INPATIENT Condition: Serious Alvarado Morrison MD Oct 16, 2018 15:17
[2018-10-16] MEDS ORDERED: LORazepam Inj 2mg/ml 1ml IM ONE (15:30)
--- NOTE | 2018-10-16 15:30 | NUR ---
ED Nurse Note: RT contacted for Bipap, will cont monitor.
--- NOTE | 2018-10-16 15:30 | NUR ---
ED Nurse Note: pt on bipap, o2sat 100%, will cont monitor.
--- NOTE | 2018-10-16 16:00 | NUR ---
ED Nurse Note: pt able to stand with assist and use urinal.
--- NOTE | 2018-10-16 16:05 | NUR ---
ED Nurse Note: noted scabs and rash generalized on BUE and BLE. no drainage, pt states hx iv drug use.
[2018-10-16 16:15] VITALS: BP 96/57
--- NOTE | 2018-10-16 16:20 | NUR ---
ED Nurse Note: pt sleeping at this time, arousable to light shake and light pain, pt VSs, O2sat 100% on bipap, will cont monitor. pt changed into clean gown and extra warm blanket provided for comfort. bed lowest position xsiderail x2
--- NOTE | 2018-10-16 18:00 | Diagnostic Imaging Report ---
Indication: Shortness of breath and chest pain Technique: One view of the chest Comparison: 10/04/2016 Findings: Infiltrates and atelectasis are seen in the mid and lower lungs bilaterally. There is probably a small amount of bilateral pleural fluid. The heart is enlarged. There is generalized borderline interstitial congestion noted Impression: Bilateral mid and lower lung infiltrates, atelectasis, and likely at least small bilateral pleural effusions. Cardiomegaly Possible mild interstitial congestion
[2018-10-16 18:10] VITALS: BP 102/59
[2018-10-16 18:24] LABS: BASOPHILS % (AUTO) 1.3 % (0.0-2.0); HEMATOCRIT 38.5 % (42.0-52.0); HEMOGLOBIN 11.3 G/DL (14.2-18.0); LYMPHOCYTES % (AUTO) 10.5 % (20.0-45.0); MEAN CORPUSCULAR VOLUME 90 FL (80-99); MONOCYTES % (AUTO) 12.5 % (1.0-10.0); NEUTROPHILS % (AUTO) 74.7 % (45.0-75.0); PLATELET COUNT 181 K/UL (150-450); RED BLOOD COUNT 4.29 M/UL (4.70-6.10); RED CELL DISTRIBUTION WIDTH 17.8 % (11.6-14.8); WHITE BLOOD COUNT 6.9 K/UL (4.8-10.8)
[2018-10-16 18:29] LABS: ANION GAP 4 mmol/L (5-15); BLOOD UREA NITROGEN 10 mg/dL (7-18); CALCIUM 8.1 MG/DL (8.5-10.1); CARBON DIOXIDE 31 MMOL/L (21-32); CHLORIDE 103 MMOL/L (98-107); POTASSIUM 4.2 MMOL/L (3.5-5.1); SODIUM 138 MMOL/L (136-145)
[2018-10-16 18:43] LABS: ALANINE AMINOTRANSFERASE 40 U/L (12-78); ALBUMIN 3.4 G/DL (3.4-5.0); ALBUMIN/GLOBULIN RATIO 0.8 (1.0-2.7); ALKALINE PHOSPHATASE 95 U/L (46-116); ASPARTATE AMINO TRANSFERASE 45 U/L (15-37); BILIRUBIN,TOTAL 0.9 MG/DL (0.2-1.0); CKMB 5.2 NG/ML (0.0-3.6); CREATINE KINASE 118 U/L (26-308)
--- NOTE | 2018-10-16 18:57 | NUR ---
PT. RECEIVED ON BIPAP / BACK UP RATE OF 16, 50% FIO2. PT. IS LETHARGIC AND TRYING TO REMOVE MASK. SPONGE TAPE IN PLACE. MASK SECURE AND CIRCUIT OUT OF THE WAY. WILL CONTINUE TO MONITOR.
--- NOTE | 2018-10-16 19:00 | NUR ---
ED Nurse Note: spoke with Dr. Morris and received order for repeat ABG at [address] for results, continue bipap.
--- NOTE | 2018-10-16 19:10 | NUR ---
ED Nurse Note: report given to ANN Ramirez and endorsed care, pt on bipap,vss.
[2018-10-16] MEDS ORDERED: LORazepam Inj 2mg/ml 1ml IV ONE (19:15)
--- NOTE | 2018-10-16 19:30 | NUR ---
ED Nurse Note: Received report from Carolina at 1905, Patient given more fluids along with anti-infectives. soft restraints initialized due to agitation and attempt to report bipap mask and prohibition of repeat ABG.
--- NOTE | 2018-10-16 19:47 | NUR ---
ED Nurse Note: attempted giving report, unable to do it at this time due to floor code blue. will try again.
--- NOTE | 2018-10-16 20:42 | NUR ---
ED Nurse Note: REPORT GIVEN TO ANN DUNAWAY.
[2018-10-16] MEDS ORDERED: Azithromycin 500 MG in D5W 275 ML IV ONE (21:00)
--- NOTE | 2018-10-16 21:25 | NUR ---
ED Nurse Note: pt transferred to ICU -K and endorsed care to ICU staff & RN GUME. all belongings sent with pt.
[2018-10-16 21:30] VITALS: BP 98/71
--- NOTE | 2018-10-16 21:30 | NUR ---
NURSE NOTES: Admitted from ER [id number] with Dx;COPD/RESP.DISTRESS on a BIPAP awake restless and agitated,Confused and Disoriented.Place on monitor shows SR-ST.Appear pale and emaciated See Adm.Assessment.IV Hydration started as ordered.
--- NOTE | 2018-10-16 21:45 | NUR ---
NURSE NOTES: Seen and exam. by Corine STONERSee order for ABG.Remain confused and disoriented.Re-orient,reassured.maintain on soft wrist restraints prev.self-injury.Voided freely.
[2018-10-16 22:00] VITALS: BP 96/57
[2018-10-16] MEDS: Solu-MEDROL 125mg Inj IVP SCH (22:59)
[2018-10-16] MEDS: cefTRIAXone 1 GM in D5W 55 ML IVPB SCH (22:59)
[2018-10-16 23:00] VITALS: BP 104/69
[2018-10-16] MEDS: Heparin 5000 units/ml inj SUBQ SCH (23:02)
[2018-10-17] VITALS (21 sets, daily range): BP systolic 94–142; BP diastolic 50–89
--- NOTE | 2018-10-17 00:10 | NUR ---
See V/S Scope rhythm same.Cont.Ca.monitoring.More awake and alert cont. to re-oriented.See ABG Results. aware.
--- NOTE | 2018-10-17 02:00 | NUR ---
NURSE NOTES: Repositioned,kept comfortable.P.Ox-99-100%.No Distress.Cont. IV Therapy.See I/O.
[2018-10-17] MEDS ORDERED: Albuterol/Ipratropium 3ml neb ONE (04:27)
[2018-10-17] MEDS: Albuterol/Ipratropium 3ml neb HHN SCH ×7 (04:27→23:18)
--- NOTE | 2018-10-17 04:30 | NUR ---
RESPIRATORY NOTE: PT. STABLE ON 4LPM N/C. ALL VS WNL NO RESPIRATORY DISTRESS NOTED AT THIS TIME.
--- NOTE | 2018-10-17 05:00 | NUR ---
NURSE NOTES: IV site infiltrated,reinserted (L)wrist cont.IV THERAPY.Bathe,Linen chg.More awake,alert and oriented.VSS.Scope rhythm same.NO CP.
[2018-10-17] MEDS: Solu-MEDROL 125mg Inj IVP SCH ×3 (06:17→22:00)
--- NOTE | 2018-10-17 07:40 | NUR ---
HAND-OFF: Report given to ANN PROCTOR.
--- NOTE | 2018-10-17 08:00 | NUR ---
NURSE NOTES: Report received from Brayden JUAREZ. Pt alert and oriented x3, able to follow commands and make needs known. Pt on caridac monitor, ST 110s. Pt on 2 L o2 saturating 96%. LW with NS @ 100 cc/hr. Pt using urinal to void. Safety measures in place with bed locked and in lowest position, side rails x3 up and call light within reach. Will continue to monitor and continue plan of care.
[2018-10-17] MEDS: Heparin 5000 units/ml inj SUBQ SCH ×2 (08:29→20:42)
--- NOTE | 2018-10-17 10:07 | NUR ---
RD ASSESSMENT & RECOMMENDATIONS SEE CARE ACTIVITY FOR COMPLETE ASSESSMENT DAILY ESTIMATED NEEDS: Needs based on Underweight, pulmonary, HIV+, 48kg 30-35 kcals/kg 1147-2252 total kcals 1-2 g protein/kg 48-96 g total protein 25-30 mL/kg 1666-9475 total fluid mLs NUTRITION DIAGNOSIS: 1) Increased kcal and protein needs r/t wasting, HIV and underweight status as evidenced by moderate to severe generalized muscle and fat wasting, BMI 16.6, pt is 72% of [place] Body Weight, HIV+. 2) Altered nutrition related lab values R/T clinical condition as evidenced by elev BNP (9672), critically elev pCO2 (*57.8). CURRENT DIET: KANG PO DIET RECOMMENDATIONS: LOW NA / texture as tolerated ADDITIONAL RECOMMENDATIONS: * Calibrated bed scale wts weekly * Monitor BG on solumedrol/ need for niss * Monitor lytes, replete as needed * Check A1C- DM dx * Add ENSURE ENLIVE + snacks BID in b/w meals .
--- NOTE | 2018-10-17 10:19 | NUR ---
NURSE NOTES: Dr Morris here to see pt. Ordered ABG. said pt can go to [facility] if ABG ok. Will continue to monitor.
--- NOTE | 2018-10-17 10:25 | NUR ---
NURSE NOTES: Spoke to Dr Grewal. said pt can transfer to [facility]. Will continue to monitor.
[2018-10-17] MEDS ORDERED: Naloxone 1mg/ml 2ml IVP ONE (11:45)
[2018-10-17] MEDS ORDERED: LORazepam Inj 2mg/ml 1ml IM PRN (12:00)
--- NOTE | 2018-10-17 12:33 | Consultation ---
History of Present Illness General Chief Complaint: Altered Level of Consciousness Present Illness HPI 73-year-old male presents ED by EMS for altered mental status. the pt has hx of heroin dependence and apparently he overdosed on heroin. the pt was lethargic and was agitated earlier. per staff he took more heroin in ICU. The pt was unable to answer any questions due to ams. Allergies: Uncoded Allergies: unkown (Allergy, Unknown, 10/16/18) Medication History Scheduled Digoxin* (Lanoxin*), 0.125 MG ORAL DAILY Folic Acid* (Folic Acid*), 1 MG ORAL DAILY, (Reported) Furosemide* (Lasix*), 40 MG ORAL DAILY, (Reported) Methadone Hcl* (Methadone*), 40 MG PO DAILY, (Reported) Methocarbamol* (Robaxin*), 500 MG PO TID Metoprolol Tartrate (Metoprolol Tartrate), 12.5 MG ORAL Q12HR Multivitamin (Multi Vitamin Daily), 1 TAB ORAL DAILY, (Reported) Potassium Chloride (Potassium Chloride), 10 MEQ PO DAILY, (Reported) Sildenafil Citrate (Sildenafil), 20 MG ORAL TID, (Reported) Thiamine Hcl (Thiamine Hcl), 100 MG PO DAILY, (Reported) Scheduled PRN Acetaminophen With Codeine (T#4) (Tylenol #4 Tab*), 1 TAB ORAL Q6H PRN Naproxen (Ec-Naprosyn), 220 MG PO TID PRN for For Pain, (Reported) Tramadol Hcl* (Ultram*), 50 MG ORAL Q6H PRN for For Pain, (Reported) Patient History Limited by: medical condition History Provided By: Medical Record, PMD Healthcare decision maker self Resuscitation status Full Code Advanced Directive on File No Past Medical/Surgical History Past Medical/Surgical History: (1) CHF (congestive heart failure) (2) Tachycardia (3) Heroin abuse (4) Abdominal pain (5) Intractable abdominal pain (6) Hyperglycemia (7) CHF (congestive heart failure) (8) Chest wall pain (9) Fall (10) COPD exacerbation (11) Atrial flutter (12) Diabetes mellitus (13) HTN (hypertension) (14) Venous stasis ulcer (15) Altered level of consciousness (16) Hypercapnia (17) Opiate dependence, continuous (18) CHF (congestive heart failure) (19) COPD (chronic obstructive pulmonary disease) (20) Respiratory distress Review of Systems Psychiatric: Reports: prior hx ROS Narrative the pt was lethargic Physical Exam General Appearance: no apparent distress, lethargic, cachetic Last 24 Hour Vital Signs Date Time Temp Pulse Resp B/P (MAP) Pulse Ox O2 Delivery O2 Flow Rate FiO2 10/17/18 11:20 97 17 99 Nasal Cannula 2.0 28 10/17/18 11:10 102 17 98 Nasal Cannula 2.0 28 10/17/18 10:00 95 21 102/55 (71) 99 10/17/18 09:00 102 16 103/67 (79) 99 10/17/18 08:00 Bi-pap 10/17/18 08:00 2.0 10/17/18 08:00 103 20 121/72 (88) 94 10/17/18 07:09 88 17 100 Nasal Cannula 4.0 36 10/17/18 07:01 98 17 100 Nasal Cannula 4.0 36 10/17/18 07:00 98.0 98 18 94/61 (72) 100 10/17/18 06:00 101 24 131/78 (95) 98 10/17/18 05:00 95 16 113/65 (81) 98 10/17/18 04:39 99 18 98 Nasal Cannula 4.0 36 10/17/18 04:30 99 18 99 10/17/18 04:28 94 20 96 Nasal Cannula 4.0 36 10/17/18 04:27 Nasal Cannula 4.0 36 10/17/18 04:27 Nasal Cannula 4.0 36 10/17/18 04:00 97.2 82 17 102/54 (70) 100 10/17/18 04:00 50 10/17/18 04:00 Bi-pap 10/17/18 04:00 82 10/17/18 03:00 91 17 102/63 (76) 100 10/17/18 02:45 99 20 93 10/17/18 02:00 102 20 128/84 (99) 99 10/17/18 01:00 94 20 97/50 (66) 99 10/17/18 00:46 98 20 100 Facial 10/17/18 00:00 97.6 102 20 115/75 (88) 99 10/16/18 23:48 Bi-pap 10/16/18 23:14 101 20 100 Facial 10/16/18 23:00 107 20 104/69 (81) 99 10/16/18 22:00 102 20 96/57 (70) 100 10/16/18 22:00 50 10/16/18 22:00 Bi-pap 10/16/18 21:30 97.2 109 18 98/71 (80) 100 10/16/18 21:22 97.0 74 20 120/87 100 Bi-pap 50 10/16/18 21:15 113 10/16/18 21:13 109 20 100 Facial 50 10/16/18 20:01 90 20 100 Facial 50 10/16/18 19:27 50 10/16/18 18:57 105 18 96 Facial 50 10/16/18 18:10 97.0 92 20 102/59 100 Bi-pap 10/16/18 17:10 93 16 100 Facial 50 10/16/18 16:15 97.5 94 20 96/57 100 Bi-pap 10/16/18 15:15 110 17 100 Facial 50 10/16/18 15:10 100 22 96 Bi-pap 50 10/16/18 15:00 101 22 96 Nasal Cannula 3.0 32 10/16/18 14:45 98 20 95 Nasal Cannula 3.0 32 10/16/18 14:45 90 22 Nasal Cannula 3.0 32 10/16/18 14:30 95 20 96 Nasal Cannula 3.0 32 10/16/18 14:15 97.5 98 22 111/72 96 Nasal Cannula 3.0 32 10/16/18 14:00 95 22 96 Nasal Cannula 3.0 32 10/16/18 13:50 90 20 95 Room Air 21 10/16/18 13:15 108 28 Room Air 10/16/18 13:12 97.5 108 28 110/76 100 Room Air Intake and Output 10/16/18 10/17/18 19:00 07:00 Intake Total 1425 ml Output Total 40 ml 460 ml Balance -40 ml 965 ml Intake Oral 470 ml IV Total 955 ml Output Urine Total 40 ml 460 ml # Voids 4 Laboratory Tests Test 10/16/18 14:26 10/16/18 17:10 10/16/18 18:49 10/17/18 01:33 Arterial Blood pH 7.198 (7.350-7.450) 7.209 (7.350-7.450) 7.324 (7.350-7.450) Arterial Blood Partial Pressure CO2 77.0 mmHg (35.0-45.0) *H 77.9 mmHg (35.0-45.0) *H 57.8 mmHg (35.0-45.0) *H Arterial Blood Partial Pressure O2 93.1 mmHg (75.0-100.0) 98.2 mmHg (75.0-100.0) 134.6 mmHg (75.0-100.0) H Arterial Blood HCO3 29.3 mmol/L (22.0-26.0) H 30.4 mmol/L (22.0-26.0) H 29.4 mmol/L (22.0-26.0) H Arterial Blood Oxygen Saturation 94.6 % (95-100) L 95.9 % (95-100) 98.2 % (95-100) Arterial Blood Base Excess -0.2 (-2-2) 0.9 (-2-2) 2.3 (-2-2) H Cameron Test Positive Positive Positive White Blood Count 6.9 K/UL (4.8-10.8) Red Blood Count 4.29 M/UL (4.70-6.10) L Hemoglobin 11.3 G/DL (14.2-18.0) L Hematocrit 38.5 % (42.0-52.0) L Mean Corpuscular Volume 90 FL (80-99) Mean Corpuscular Hemoglobin 26.4 PG (27.0-31.0) L Mean Corpuscular Hemoglobin Concent 29.4 G/DL (32.0-36.0) L Red Cell Distribution Width 17.8 % (11.6-14.8) H Platelet Count 181 K/UL (150-450) Mean Platelet Volume 7.4 FL (6.5-10.1) Neutrophils (%) (Auto) 74.7 % (45.0-75.0) Lymphocytes (%) (Auto) 10.5 % (20.0-45.0) L Monocytes (%) (Auto) 12.5 % (1.0-10.0) H Eosinophils (%) (Auto) 1.0 % (0.0-3.0) Basophils (%) (Auto) 1.3 % (0.0-2.0) Prothrombin Time 11.0 SEC (9.30-11.50) Prothromb Time International Ratio 1.0 (0.9-1.1) Activated Partial Thromboplast Time 29 SEC (23-33) Sodium Level 138 MMOL/L (136-145) Potassium Level 4.2 MMOL/L (3.5-5.1) Chloride Level 103 MMOL/L (98-107) Carbon Dioxide Level 31 MMOL/L (21-32) Anion Gap 4 mmol/L (5-15) L Blood Urea Nitrogen 10 mg/dL (7-18) Creatinine 1.0 MG/DL (0.55-1.30) Estimat Glomerular Filtration Rate mL/min (>60) Glucose Level 81 MG/DL (74-106) Calcium Level 8.1 MG/DL (8.5-10.1) L Total Bilirubin 0.9 MG/DL (0.2-1.0) Aspartate Amino Transf (AST/SGOT) 45 U/L (15-37) H Alanine Aminotransferase (ALT/SGPT) 40 U/L (12-78) Alkaline Phosphatase 95 U/L (46-116) Total Creatine Kinase 118 U/L (26-308) Creatine Kinase MB 5.2 NG/ML (0.0-3.6) H Creatine Kinase MB Relative Index 4.4 Troponin I 0.137 ng/mL (0.000-0.056) Pro-B-Type Natriuretic Peptide 9672 pg/mL (0-125) H Total Protein 7.7 G/DL (6.4-8.2) Albumin 3.4 G/DL (3.4-5.0) Globulin 4.3 g/dL Albumin/Globulin Ratio 0.8 (1.0-2.7) L Urine Opiates Screen Positive (NEGATIVE) H Urine Barbiturates Screen Negative (NEGATIVE) Phencyclidine (PCP) Screen Negative (NEGATIVE) Urine Amphetamines Screen Negative (NEGATIVE) Urine Benzodiazepines Screen Negative (NEGATIVE) Urine Cocaine Screen Negative (NEGATIVE) Urine Marijuana (THC) Screen Negative (NEGATIVE) Serum Alcohol < 3 mg/dL Test 10/17/18 09:51 Arterial Blood pH 7.313 (7.350-7.450) Arterial Blood Partial Pressure CO2 57.2 mmHg (35.0-45.0) *H Arterial Blood Partial Pressure O2 118.3 mmHg (75.0-100.0) H Arterial Blood HCO3 28.3 mmol/L (22.0-26.0) H Arterial Blood Oxygen Saturation 98.0 % (95-100) Arterial Blood Base Excess 1.3 (-2-2) Cameron Test Positive Microbiology Date/Time Source Procedure Growth Status 10/16/18 17:10 Nasal Nares Influenza Types A,B Antigen (SHAWNEE) - Final Complete 10/16/18 17:45 Rectum Received Height (Feet): 5 Height (Inches): 7.00 Weight (Pounds): 100 Medications Current Medications Medications (Trade) Dose Ordered Sig/Aimee Route PRN Reason Start Time Stop Time Status Last Admin Dose Admin Albuterol/ Ipratropium (Albuterol/ Ipratropium) 3 ml Q4HRT HHN 10/16/18 23:00 10/21/18 22:59 10/17/18 11:09 Ceftriaxone Sodium 1 gm/ Dextrose 55 ml @ 110 mls/hr Q24H IVPB 10/16/18 22:00 10/23/18 21:59 10/16/18 22:59 Furosemide (Lasix) 20 mg EVERY 12 HOURS IV 10/17/18 10:45 11/16/18 10:44 10/17/18 11:28 Heparin Sodium (Porcine) (Heparin 5000 units/ml) 5,000 units EVERY 12 HOURS SUBQ 10/16/18 21:00 11/15/18 20:59 10/17/18 08:29 Lorazepam (Ativan 2mg/ml 1ml) 1 mg Q6H PRN IM anxiety 10/17/18 12:00 10/24/18 11:59 Methylprednisolone Sodium Succinate (Solu-MEDROL) 60 mg EVERY 8 HOURS IVP 10/16/18 22:00 11/15/18 21:59 10/17/18 06:17 Sodium Chloride 1,000 ml @ 100 mls/hr Q10H IV 10/16/18 18:30 11/15/18 18:29 10/17/18 08:00 Assessment/Plan Problem List: (1) toxinc encephalopathy acute (2) Heroin abuse ICD Codes: F11.10 - Heroin abuse SNOMED: 861668297 (3) Opiate dependence, continuous ICD Codes: F11.20 - Opioid dependence, uncomplicated SNOMED: 508067205 Assessment/Plan Ativan prn clonidine prn the pt received a dose a Spencer Loyola MD Oct 17, 2018 12:33
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
--- NOTE | 2018-10-17 15:21 | NUR ---
Social Service Note GUNNER met with patient who is alert, oriented and verbally responsive. GUNNER last saw patient in 2017 in which he lived home with a [facility] caregiver Damaris. Patient states he continues to live in his apartment alone. Damaris has . Patient provided his son's contact information Quintin Kasper III [phone]. Patient also provided his home health nurse contact information Brenda [phone]. SW confirmed patient is on service with [facility] [phone]. PCP Dr. Bustos. Home Health aware of patient's substance and ETOH use. Patient's FWW with seat in room. Patient states he will return home upon discharge. SW addressed with patient his drug use in the ICU. Patient states he was going through his stuff, found his heroin and needle and decided to shoot up. Patient states all the drugs he is aware of in his belongings has been removed by nursing. Patient states he has no desire to stop. Patient states he can go periods not using and he can't afford a daily habit. Patient states he is aware of the risks of continued use. Will continue to monitor.
--- NOTE | 2018-10-17 15:34 | NUR ---
*-* INSURANCE *-* [facility]: YOGESH PLEASE FAX THE REVIEW/CLINICAL P- [phone] F- [phone]
--- NOTE | 2018-10-17 17:23 | NUR ---
HAND-OFF: Report given to Ashly JUAREZ.
--- NOTE | 2018-10-17 17:24 | NUR ---
NURSE NOTES: Received patient from ANN Farfan. Patient VS stable at this time with O2 saturation 90%. Patient sitting at the side of the bed. Patient has COPD and says that he is tired of sitting in bed all day. Patient is not attempting to stand at this time. Patient is asking for maya crackers at this time. Will follow up with dietary. Patient was admitted for respiratory distress and COPD exacerbation at this time. Patient saturation is 88-93% at this time. Patient is on NC 2L at this time. Patient showing ST on the monitor at this time. At noon today, the patient administered drugs to himself and he was then immediately given Narcan. Patient has an order for sitter if the patient is transferred off of this unit. Patient has scabs on his legs that are dry and covered in Kerlix. Patient has a left wrist 20G PIV that is running NS at 100mL/hr at this time. Patient uses a urinal and turns on his own. Patient bed in low position with bed alarm on and call light in reach at this time.
--- NOTE | 2018-10-17 18:27 | NUR ---
NURSE NOTES: Patient has an order for CT head at this time. CT scan is busy. Will follow up.
--- NOTE | 2018-10-17 18:36 | NUR ---
CASE MANAGEMENT: REVIEW 73/M BIBA FROM STREET CC: RESP DISTRESS . AMS SI: COPD . AMS T 97.0 HR 105 RR 20 BP 102/59 SAT 96% BIPAP FIO2 50 TROPONIN 0.137 BNP 9672 ABG: PH 7.198 PCO2 77.0 PO2 93.1 HCO3 29.3 O2 SAT 94.6 IS: ATIVAN IM X1 ALBUTEROL HHN X1 ATROVENT HHN X1 SOLU MEDROL IV X1 LEVOFLOXACIN IV X1 AZITHROMYCIN IV X1 PATIENT ADMITTED TO ICU 10/16/2018 DCP: PATIENT IS FROM HOME
--- NOTE | 2018-10-17 19:15 | Consultation ---
DATE OF CONSULTATION: 10/17/2018 PULMONARY CONSULTATION CONSULTING PHYSICIAN: Abhijit Morris M.D. HISTORY OF PRESENT ILLNESS: This is a 73-year-old male who came to the hospital for altered mental status. The patient apparently was unable to provide any history and also this morning, he is unable to provide any further information. In the ER, he was found to be wheezing and short of breath. He is also having cough, productive of discolored phlegm. The patient has a history of CHF, asthma, and COPD. He is also known to have substance abuse in the past. In the ER, the patient was placed on BiPAP. He also received Ativan for agitation. PAST MEDICAL HISTORY: HIV positivity, COPD, hypertension, asthma, and CHF. PREVIOUS SOCIAL HISTORY: He is apparently homeless. There is a history of alcohol as well as drug abuse. He is still unreliable. PHYSICAL EXAMINATION: VITAL SIGNS: Blood pressure is 110/70, heart rate is 104, respirations 28, and he is afebrile. GENERAL: Reveals a 73-year-old male. HEENT: Unremarkable. CHEST: Decreased breath sounds bilaterally with basilar crackles. HEART: Heart sounds are normal. ABDOMEN: Soft. NEUROLOGIC: Nonfocal. LABORATORY DATA: Lab testing shows hemoglobin 11.3, platelet count is normal, and white count is normal. Creatinine is 1.0. Troponin 0.137. ProBNP 9672. ABG this morning, pH 7.31, pCO2 57, and pO2 118. Initial ABG was pH 7.19, pCO2 77, and pO2 23. IMAGING STUDIES: X-ray of chest is reviewed and shows cardiomegaly congestion. There are also bibasilar infiltrates. IMPRESSION: 1. Acute respiratory failure with hypercapnia. 2. HIV. 3. COPD. 4. CHF. DISCUSSION: I agree with admission and care. We will hold off on BiPAP, as overnight he has received BiPAP and is looking and feeling significantly better. He needs diuresis. He needs antibiotics, pulmonary hygiene, subcutaneous prophylaxis for DVT, and IV steroids. We will continue to follow carefully. Discussed with nursing staff. We will transfer her to [facility]. Abhijit Morris M.D. DR: RANDY JOB#: [id number] CC:
--- NOTE | 2018-10-17 19:30 | NUR ---
HAND-OFF: Report given to ANN Owen. Patient VS stable at this time. Patient coplaining of pain at this time. Endorsed to follow up. Patient produced sputum for culture at this time. Endorsed to follow up. Patient bed in low position with bed alarm on and call light in reach at this time.
--- NOTE | 2018-10-17 19:30 | NUR ---
NURSE NOTES: Recvd.in bed AAO just finished eating his dinner.Resp. unlabored on 2L/NC inh.Sat 96-98%.See V/S.Scope Sr-St.IV inf.(L)wrist site infiltrated.IV thera.stopped.Attempted to re-start Right arm unsuccesfull.Voided freeely.Await poss. Transfer to [facility].
--- NOTE | 2018-10-17 21:15 | History and Physical Report ---
DATE OF ADMISSION: 10/16/2018 CHIEF COMPLAINT: Altered mental status, respiratory failure. HISTORY OF PRESENT ILLNESS: The patient is a 73-year-old male. He has a history of chronic obstructive pulmonary disease, opioid dependence, congestive heart failure, atrial flutter, diabetes, who presented with complaints of altered mental status. The patient currently is confused and unable to provide any history. The patient has a history of the above as per medical records. In the emergency room, he was noted to be confused, altered, short of breath. Blood gases showed significant respiratory acidosis with a CO2 level of and pH of 7.2. He is currently on BiPAP. He is now admitted to intensive care unit. PAST MEDICAL HISTORY: As above. PAST SURGICAL HISTORY: Unknown. CURRENT MEDICATIONS: The patient does not recall. ALLERGIES: None. FAMILY HISTORY: Unknown. SOCIAL HISTORY: The patient is apparently a smoker and has a history opioid dependence. REVIEW OF SYSTEMS: Unobtainable. PHYSICAL EXAMINATION: VITAL SIGNS: Temperature 98 degrees, blood pressure 103/60, pulse of 116, respiratory rate 22. GENERAL: The patient is a thin male, in no apparent distress. He opens eyes, but does not follow commands. NECK: Supple. HEART: Regular rate and rhythm. LUNGS: Lungs. ABDOMEN: Soft, nontender, nondistended. EXTREMITIES: Without clubbing, cyanosis. LABORATORY DATA: Showed white count 7, hemoglobin 11, hematocrit 38, platelet count of 181. ABG showed a pH of 7.198, pCO2 of 77, pCO2 of 93, bicarb 29, O2 saturation of 94%. Coags are normal. Tox screen was positive for opiates. Sodium 138, potassium 4.2. Troponin was 0.137. Natriuretic peptide level was 9600. Chest x-ray showed mid and lower lung infiltrate, cardiomegaly, interstitial congestion. ASSESSMENT: This is an elderly male, admitted with respiratory failure secondary to congestive heart failure and possible pneumonia. The patient has a history of atrial flutter, hypertension, elevated troponin level. PLAN OF CARE: 1. Continue BiPAP as needed. 2. Monitor blood gases. 3. Avoid sedation. 4. Avoid opiates. 5. Respiratory treatments. 6. Empiric antibiotics to cover for pneumonia. 7. Pulmonary and Cardiology evaluation will be obtained. 8. We will monitor the patient's troponin level. Varun Stewart M.D. DR: Anthony JOB#: [id number] CC:
--- NOTE | 2018-10-17 21:15 | Progress Note ---
DATE: 10/17/2018 CARDIOLOGY PROGRESS NOTE SUBJECTIVE: The patient is awake and alert. He is at times agitated. He was able to obtain heroin from his private belongings and tried to inject himself today, but was stopped by staff. Subsequently, he was agitated and more confused . He is still congested and coughing frequently. OBJECTIVE: VITAL SIGNS: Blood pressure 102/55, pulse 95, and respirations 21. Monitored rhythm sinus with paroxysmal atrial arrhythmias. GENERAL: Diffuse ecchymosis. Poor hygiene. Frequently lethargic. LUNGS: Coarse breath sounds and rhonchi. HEART: Regular rhythm and rate. Normal S1, S2 with no appreciable murmur. ABDOMEN: Soft. EXTREMITIES: There is dependent edema. LABORATORY DATA: ABG today, pH 7.31, pCO2 57, and pO2 118. IMPRESSION: 1. Heroin abuse. 2. Paroxysmal atrial arrhythmias. 3. Pneumonia. 4. Acute on chronic respiratory acidosis, improved. 5. Acute respiratory failure, resolving. 6. Bilateral pneumonia. 7. Paroxysmal bronchospasm. 8. Chronic obstructive pulmonary disease exacerbation. 9. Acute on chronic diastolic congestive heart failure. 10. Acute myocardial ischemia. PLAN: 1. Intensive care unit care. 2. Withdrawal precautions. 3. Serial troponin. 4. Maximize anti-failure and antianginal regimen including diuresis, intravenous steroids, broad-spectrum antibiotics, and inhaled bronchodilators. 5. DVT prophylaxis. 6. Infectious Disease consultation. 7. Appreciated previous Pulmonary and Psychiatry assessment. Justus Grewal M.D. DR: BRIDGET JOB#: [id number] CC: RICHARD
--- NOTE | 2018-10-17 21:15 | Consultation ---
DATE OF CONSULTATION: 10/16/2018 CARDIOLOGY CONSULTATION CONSULTING PHYSICIAN: Justus Grewal M.D. REQUESTING PHYSICIAN: Varun Stewart M.D. REASON FOR CONSULTATION: Elevated natriuretic peptide assay in the setting of acute respiratory failure and acidosis. HISTORY OF PRESENT ILLNESS: This is a 73-year-old male who was brought into the emergency room by paramedics because of altered mentation noted by a friend. The patient apparently has a history of substance abuse. He has been increasingly congested and short of breath and was wheezing uncontrollably when he was found. He has a known history of COPD. In the emergency room, he was significantly tachypneic, hypoxic, and had severely abnormal arterial blood gas with pH of 7.19, pCO2 of 77, and pO2 of 93. The patient was placed on BiPAP support and started on inhaled bronchodilators and intravenous steroids. He was also brown cultured. PAST MEDICAL HISTORY: Includes hypertension, congestive heart failure, substance abuse, type 2 diabetes mellitus, COPD. ALLERGIES: None known. MEDICATIONS: Reviewed and reconciled. SOCIAL HISTORY: Positive for substance abuse. Denies alcohol or cigarette smoking. FAMILY HISTORY: Noncontributory. REVIEW OF SYSTEMS: Not obtainable due to patient's condition. PHYSICAL EXAMINATION: VITAL SIGNS: Blood pressure 110/76, pulse rate 108, respiratory rate 28, and afebrile. GENERAL: Disheveled. LUNGS: Bilateral rhonchi. Diminished breath sounds and scattered expiratory wheezing. HEART: Regular rhythm and rate. Normal S1, S2 with no murmur. ABDOMEN: Soft and nontender. There is no CVA tenderness. EXTREMITIES: Without edema. Stasis derm ulcers BLE. LABORATORY AND DIAGNOSTIC DATA: Sodium 138, potassium 4.2, bicarbonate 31, BUN 10, creatinine 1, and troponin 0.137. Pro-natriuretic peptide 9672. White count 6.9 and hemoglobin 11.3. Tox screen is positive for opiates. X-ray of the chest reveals interstitial edema and cardiomegaly with bilateral infiltrates and atelectasis. IMPRESSION: 1. Acute respiratory failure with hypercapnia. 2. Acute on chronic respiratory acidosis. 3. Bilateral pneumonia. 4. LE vascular ulcers 5. Acute on chronic systolic and diastolic congestive heart failure. 6. COPD. 7. Paroxysmal bronchospasm. 8. History of substance abuse. 9. Narcotic analgesic dependence. PLAN: 1. Panculture. 2. Broad-spectrum antibiotics. 3. Intravenous steroids. 4. Inhaled bronchodilator. 5. Diuresis. 6. Withdrawal precautions. 7. Serial ABGs. 8. Continue BiPAP support. 9. May not be able to avoid intubation and mechanical ventilation. 10. We will follow. Justus Grewal M.D. DR: NABILA JOB#: [id number] CC: RICHARD
--- NOTE | 2018-10-17 21:30 | NUR ---
NURSE NOTES: Transfer to [facility] via bed accpd.by staff.Report given to ANN SMILEY with a sitter assigned.
--- NOTE | 2018-10-17 21:31 | NUR ---
NURSE NOTES: Received a patient from ICU,report given by ANN Arrington.Patient tolerated transfer well with portable oxygen 2 L/min via N/C,no c/o pain,no respiratory distress noted,lungs diminished sound in an auscultation,SR on rn cardiac rehab,BS active in all quadrants, pt has no IV access,bed secured in a low safety position,call light within a reach,sitter at bed side .Will continue to monitor.
[2018-10-17] MEDS: cefTRIAXone 1 GM in D5W 55 ML IVPB SCH (22:00)
--- NOTE | 2018-10-17 22:25 | NUR ---
NURSE NOTES: Patient is a hard stick,unable to insert IV.Not administered medications 2200 d/t no IV access.Will try later.
--- NOTE | 2018-10-17 23:45 | NUR ---
HAND-OFF: Report given to ANN Ayala.Patient stable,sitting in a bed,sitter at bedside.
--- NOTE | 2018-10-17 23:50 | NUR ---
NURSE NOTES: Given report from ANN Johnson. Received pt is resting on the bed and awake and alert and forgetful. On 1:1 sitter at bedside. On Tele monitor with ST. Iv site intact and no sign of infiltration noted. On O2 2L via nasal cannula and SaO2 99% noted. Noted multiple bruised and scratch mcgrath. Noted Swelling on Lt. arm area. Elevated Lt arm. Placed fall precaution. Will continue to care plan.
[2018-10-18] VITALS: BP 123/68
[2018-10-18] MEDS ORDERED: cefTRIAXone 1 GM in D5W 55 ML IVPB ONE (01:00)
[2018-10-18] MEDS: Albuterol/Ipratropium 3ml neb HHN SCH ×6 (03:07→23:34)
[2018-10-18 04:00] VITALS: BP 130/59
[2018-10-18 05:43] LABS: BASOPHILS % (AUTO) 0.7 % (0.0-2.0); HEMATOCRIT 31.4 % (42.0-52.0); HEMOGLOBIN 9.3 G/DL (14.2-18.0); LYMPHOCYTES % (AUTO) 5.8 % (20.0-45.0); MEAN CORPUSCULAR VOLUME 90 FL (80-99); MONOCYTES % (AUTO) 10.9 % (1.0-10.0); NEUTROPHILS % (AUTO) 82.6 % (45.0-75.0); PLATELET COUNT 186 K/UL (150-450); RED BLOOD COUNT 3.49 M/UL (4.70-6.10); RED CELL DISTRIBUTION WIDTH 17.7 % (11.6-14.8); WHITE BLOOD COUNT 9.2 K/UL (4.8-10.8)
[2018-10-18] MEDS ORDERED: LORazepam Inj 2mg/ml 1ml IM PRN (06:00)
[2018-10-18] MEDS: Solu-MEDROL 125mg Inj IVP SCH ×3 (06:07→22:31)
[2018-10-18 06:26] LABS: ALANINE AMINOTRANSFERASE 32 U/L (12-78); ALBUMIN/GLOBULIN RATIO 0.8 (1.0-2.7); ALKALINE PHOSPHATASE 83 U/L (46-116); ANION GAP 9 mmol/L (5-15); ASPARTATE AMINO TRANSFERASE 23 U/L (15-37); BILIRUBIN,TOTAL 0.4 MG/DL (0.2-1.0); BLOOD UREA NITROGEN 19 mg/dL (7-18); CALCIUM 8.6 MG/DL (8.5-10.1); CARBON DIOXIDE 27 MMOL/L (21-32); CHLORIDE 103 MMOL/L (98-107); CREATININE 1.1 MG/DL (0.55-1.30); POTASSIUM 4.4 MMOL/L (3.5-5.1); SODIUM 139 MMOL/L (136-145)
--- NOTE | 2018-10-18 07:12 | NUR ---
NURSE NOTES: Received report from ANN Elam. Patient is resting in bed in stable condition. No s/sx of SOB, breathing is even and unlabored. Observed no presence of pain or discomfort at this time. Bed is in lowest position, brakes engaged. Call light is kept within easy reach. Will continue to monitor patient. Addendum: 10/18/18 at 0715 by ISABEL KIMBALL RN NURSE NOTES: Correction: Report received from ANN Ayala.
--- NOTE | 2018-10-18 07:31 | NUR ---
HAND-OFF: Report given to ANN Estrada. Pt is resting on the bed and no sign of acute distress noted. On 1:1 sitter at bedside.
[2018-10-18 08:00] VITALS: BP 148/78
--- NOTE | 2018-10-18 08:53 | General Progress Note ---
Assessment/Plan Problem List: (1) Hypercapnia ICD Codes: R06.89 - Other abnormalities of breathing SNOMED: 27463668 (2) Opiate dependence, continuous ICD Codes: F11.20 - Opioid dependence, uncomplicated SNOMED: 640873218 (3) CHF (congestive heart failure) ICD Codes: I50.9 - CHF (congestive heart failure) SNOMED: 73497204 Qualifiers: Qualified Codes: I50.9 - Heart failure, unspecified (4) Atrial flutter ICD Codes: I48.92 - Unspecified atrial flutter SNOMED: 8594842 (5) Diabetes mellitus ICD Codes: E11.9 - Type 2 diabetes mellitus without complications SNOMED: 56753223 (6) COPD exacerbation ICD Codes: J44.1 - Chronic obstructive pulmonary disease with (acute) exacerbation SNOMED: 295285344, 214507753 (7) toxinc encephalopathy acute Status: stable, progressing Assessment/Plan cont current rx follow up abx steroids- wean per pulm resp abx dvt/stress ulcer prophylaxis Subjective ROS Limited/Unobtainable: No Constitutional: Reports: malaise, weakness HEENT: Reports: no symptoms Cardiovascular: Reports: no symptoms Respiratory: Reports: no symptoms, shortness of breath Gastrointestinal/Abdominal: Reports: no symptoms Genitourinary: Reports: no symptoms Neurologic/Psychiatric: Reports: anxiety Endocrine: Reports: no symptoms Hematologic/Lymphatic: Reports: no symptoms Allergies: Coded Allergies: No Known Allergies (Unverified , 10/17/18) All Systems: reviewed and negative except above Subjective currently off bipap. no new complaints. no fever or chills. no sob. agitated but seems less confused. Objective Last 24 Hour Vital Signs Date Time Temp Pulse Resp B/P (MAP) Pulse Ox O2 Delivery O2 Flow Rate FiO2 10/18/18 07:18 93 16 99 Nasal Cannula 2.0 28 10/18/18 07:08 Nasal Cannula 2.0 28 10/18/18 07:08 94 Nasal Cannula 2.0 28 10/18/18 07:08 85 16 94 Nasal Cannula 2.0 28 10/18/18 04:00 99.0 117 20 130/59 (82) 94 10/18/18 04:00 110 10/18/18 04:00 Nasal Cannula 2.0 10/18/18 03:17 94 20 98 Nasal Cannula 3.0 32 10/18/18 03:07 84 20 95 Nasal Cannula 3.0 32 10/18/18 00:00 97.8 101 20 123/68 (86) 95 10/18/18 00:00 2.0 10/18/18 00:00 Nasal Cannula 2.0 10/18/18 00:00 120 10/17/18 23:28 97 18 96 Nasal Cannula 3.0 32 10/17/18 23:18 102 20 96 Nasal Cannula 3.0 32 10/17/18 21:00 121 22 108/72 (84) 97 10/17/18 20:00 113 10/17/18 20:00 2.0 10/17/18 20:00 Bi-pap 10/17/18 20:00 97.8 113 20 100/67 (78) 95 10/17/18 19:40 105 17 98 Nasal Cannula 3.0 32 10/17/18 19:30 102 20 96 Nasal Cannula 3.0 32 10/17/18 19:00 117 23 114/69 (84) 97 10/17/18 18:00 123 24 124/89 (101) 92 10/17/18 17:00 105 19 118/69 (85) 94 10/17/18 16:00 Bi-pap 10/17/18 16:00 98.3 116 22 103/60 (74) 90 10/17/18 16:00 4.0 10/17/18 16:00 108 10/17/18 15:29 100 22 100 Nasal Cannula 2.0 28 10/17/18 15:24 112 20 97 Nasal Cannula 2.0 28 10/17/18 15:00 115 23 142/87 (105) 96 10/17/18 14:00 107 19 107/60 (76) 97 10/17/18 13:00 122 22 125/62 (83) 95 10/17/18 12:00 4.0 10/17/18 12:00 109 10/17/18 12:00 Bi-pap 10/17/18 12:00 98.0 111 19 100/61 (74) 98 10/17/18 11:20 97 17 99 Nasal Cannula 2.0 28 10/17/18 11:10 102 17 98 Nasal Cannula 2.0 28 10/17/18 11:00 109 18 94 10/17/18 10:00 95 21 102/55 (71) 99 10/17/18 09:00 102 16 103/67 (79) 99 Intake and Output 10/17/18 10/18/18 19:00 07:00 Intake Total 1440 ml 1438 ml Output Total 500 ml 1000 ml Balance 940 ml 438 ml Intake Oral 440 ml 750 ml IV Total 1000 ml 688 ml Output Urine Total 500 ml 1000 ml # Voids 2 1 Laboratory Tests 10/17/18 09:51: Arterial Blood pH 7.313L, Arterial Blood Partial Pressure CO2 57.2*H, Arterial Blood Partial Pressure O2 118.3H, Arterial Blood HCO3 28.3H, Arterial Blood Oxygen Saturation 98.0, Arterial Blood Base Excess 1.3, Cameron Test Positive 10/18/18 03:25: White Blood Count 9.2, Red Blood Count 3.49L, Hemoglobin 9.3L, Hematocrit 31.4L , Mean Corpuscular Volume 90, Mean Corpuscular Hemoglobin 26.5L, Mean Corpuscular Hemoglobin Concent 29.4L, Red Cell Distribution Width 17.7H, Platelet Count 186, Mean Platelet Volume 6.5, Neutrophils (%) (Auto) 82.6H, Lymphocytes (%) (Auto) 5.8L, Monocytes (%) (Auto) 10.9H, Eosinophils (%) (Auto) 0.0, Basophils (%) (Auto) 0.7, Sodium Level 139, Potassium Level 4.4, Chloride Level 103, Carbon Dioxide Level 27, Anion Gap 9, Blood Urea Nitrogen 19H, Creatinine 1.1, Estimat Glomerular Filtration Rate , Glucose Level 164H, Calcium Level 8.6, Total Bilirubin 0.4, Aspartate Amino Transf (AST/SGOT) 23, Alanine Aminotransferase (ALT/SGPT) 32, Alkaline Phosphatase 83, Troponin I 0.088H, Pro-B-Type Natriuretic Peptide 6348H, Total Protein 7.0, Albumin 3.0L, Globulin 4.0, Albumin/Globulin Ratio 0.8L, Thyroid Stimulating Hormone (TSH) 0.458 Height (Feet): 5 Height (Inches): 7.00 Weight (Pounds): 100 General Appearance: WD/WN, thin Neck: supple Cardiovascular: normal rate, regular rhythm Respiratory/Chest: chest wall non-tender, lungs clear, normal breath sounds, no respiratory distress Abdomen: normal bowel sounds, non tender, soft, no organomegaly Edema: no edema noted Arm (L), no edema noted Arm (R), no edema noted Leg (L), no edema noted Leg (R), no edema noted Pedal (L), no edema noted Pedal (R), no edema noted Generalized Varun Stewart MD Oct 18, 2018 08:53
--- NOTE | 2018-10-18 09:13 | NUR ---
REHAB MED PT NOTE CONSULT RECEIVED, CONNIE COMPLETED, PATIENT WILL BENEFIT FROM SKILLED PT DURING STAY FOR RETURN TO [facility]. RECOMMEND SNF AT [facility] FOR STRENGTHENING. PLAN OF CARE INITIATED. SONG RICKETTS PT DPT Addendum: 10/18/18 at 0913 by SONG RICKETTS PT Amended: Links added.
--- NOTE | 2018-10-18 09:27 | NUR ---
NURSE NOTES: Dr. Martín Espinoza at nurse station, ordered HIV Rapid lab test. Order entered, noted, and carried out. Will continue to monitor patient.
--- NOTE | 2018-10-18 09:56 | Pulmonology Progress Note ---
Assessment/Plan Assessment/Plan 1. Acute respiratory failure with hypercapnia. 2. HIV. 3. COPD. 4. CHF. DISCUSSION: Continue nocturnal BiPAP ABG improved; pH 7.35 Continue diuresis, antibiotics, pulmonary hygiene and IV steroids. I will continue to follow carefully. Discussed with nursing staff. Subjective Interval Events: Transferred to [facility]; on nocturnal BiPAP Constitutional: Reports: no symptoms HEENT: Repors: no symptoms Respiratory: Reports: no symptoms Cardiovascular: Reports: no symptoms Gastrointestinal/Abdominal: Reports: no symptoms Genitourinary: Reports: no symptoms Allergies: Coded Allergies: No Known Allergies (Unverified , 10/17/18) Objective Last 24 Hour Vital Signs Date Time Temp Pulse Resp B/P (MAP) Pulse Ox O2 Delivery O2 Flow Rate FiO2 10/18/18 08:00 Nasal Cannula 2.0 10/18/18 08:00 98.8 120 20 148/78 (101) 98 10/18/18 07:18 93 16 99 Nasal Cannula 2.0 28 10/18/18 07:08 Nasal Cannula 2.0 28 10/18/18 07:08 94 Nasal Cannula 2.0 28 10/18/18 07:08 85 16 94 Nasal Cannula 2.0 28 10/18/18 04:00 99.0 117 20 130/59 (82) 94 10/18/18 04:00 110 10/18/18 04:00 Nasal Cannula 2.0 10/18/18 03:17 94 20 98 Nasal Cannula 3.0 32 10/18/18 03:07 84 20 95 Nasal Cannula 3.0 32 10/18/18 00:00 97.8 101 20 123/68 (86) 95 10/18/18 00:00 2.0 10/18/18 00:00 Nasal Cannula 2.0 10/18/18 00:00 120 10/17/18 23:28 97 18 96 Nasal Cannula 3.0 32 10/17/18 23:18 102 20 96 Nasal Cannula 3.0 32 10/17/18 21:00 121 22 108/72 (84) 97 10/17/18 20:00 113 10/17/18 20:00 2.0 10/17/18 20:00 Bi-pap 10/17/18 20:00 97.8 113 20 100/67 (78) 95 10/17/18 19:40 105 17 98 Nasal Cannula 3.0 32 10/17/18 19:30 102 20 96 Nasal Cannula 3.0 32 10/17/18 19:00 117 23 114/69 (84) 97 10/17/18 18:00 123 24 124/89 (101) 92 10/17/18 17:00 105 19 118/69 (85) 94 10/17/18 16:00 Bi-pap 10/17/18 16:00 98.3 116 22 103/60 (74) 90 10/17/18 16:00 4.0 10/17/18 16:00 108 10/17/18 15:29 100 22 100 Nasal Cannula 2.0 28 10/17/18 15:24 112 20 97 Nasal Cannula 2.0 28 10/17/18 15:00 115 23 142/87 (105) 96 10/17/18 14:00 107 19 107/60 (76) 97 10/17/18 13:00 122 22 125/62 (83) 95 10/17/18 12:00 4.0 10/17/18 12:00 109 10/17/18 12:00 Bi-pap 10/17/18 12:00 98.0 111 19 100/61 (74) 98 10/17/18 11:20 97 17 99 Nasal Cannula 2.0 28 10/17/18 11:10 102 17 98 Nasal Cannula 2.0 28 10/17/18 11:00 109 18 94 10/17/18 10:00 95 21 102/55 (71) 99 Intake and Output 10/17/18 10/18/18 19:00 07:00 Intake Total 1440 ml 1438 ml Output Total 500 ml 1000 ml Balance 940 ml 438 ml Intake Oral 440 ml 750 ml IV Total 1000 ml 688 ml Output Urine Total 500 ml 1000 ml # Voids 2 1 General Appearance: no acute distress HEENT: normocephalic Respiratory/Chest: chest wall non-tender, lungs clear Cardiovascular: normal peripheral pulses, normal rate Abdomen: normal bowel sounds Microbiology Date/Time Source Procedure Growth Status 10/16/18 17:10 Nasal Nares Influenza Types A,B Antigen (SHAWNEE) - Final Complete 10/16/18 17:45 Rectum Received Laboratory Tests 10/18/18 03:25: White Blood Count 9.2, Red Blood Count 3.49L, Hemoglobin 9.3L, Hematocrit 31.4L , Mean Corpuscular Volume 90, Mean Corpuscular Hemoglobin 26.5L, Mean Corpuscular Hemoglobin Concent 29.4L, Red Cell Distribution Width 17.7H, Platelet Count 186, Mean Platelet Volume 6.5, Neutrophils (%) (Auto) 82.6H, Lymphocytes (%) (Auto) 5.8L, Monocytes (%) (Auto) 10.9H, Eosinophils (%) (Auto) 0.0, Basophils (%) (Auto) 0.7, Sodium Level 139, Potassium Level 4.4, Chloride Level 103, Carbon Dioxide Level 27, Anion Gap 9, Blood Urea Nitrogen 19H, Creatinine 1.1, Estimat Glomerular Filtration Rate , Glucose Level 164H, Calcium Level 8.6, Total Bilirubin 0.4, Aspartate Amino Transf (AST/SGOT) 23, Alanine Aminotransferase (ALT/SGPT) 32, Alkaline Phosphatase 83, Troponin I 0.088H, Pro-B-Type Natriuretic Peptide 6348H, Total Protein 7.0, Albumin 3.0L, Globulin 4.0, Albumin/Globulin Ratio 0.8L, Thyroid Stimulating Hormone (TSH) 0.458 10/18/18 03:35: HIV (1&2) Antibody Rapid Negative 10/18/18 09:05: Arterial Blood pH 7.357, Arterial Blood Partial Pressure CO2 56.8*H, Arterial Blood Partial Pressure O2 63.4L, Arterial Blood HCO3 31.2H, Arterial Blood Oxygen Saturation 91.2L, Arterial Blood Base Excess 4.6H, Cameron Test Positive Current Medications Medications (Trade) Dose Ordered Sig/Aimee Route PRN Reason Start Time Stop Time Status Last Admin Dose Admin Acetaminophen (Tylenol) 650 mg Q6H PRN ORAL Mild Pain/Temp > 100.5 10/18/18 04:45 11/17/18 04:44 10/18/18 05:03 Albuterol/ Ipratropium (Albuterol/ Ipratropium) 3 ml Q4HRT HHN 10/18/18 03:00 10/21/18 22:59 10/18/18 07:07 Ceftriaxone Sodium 1 gm/ Dextrose 55 ml @ 110 mls/hr Q24H IVPB 10/18/18 22:00 10/23/18 21:59 Furosemide (Lasix) 20 mg EVERY 12 HOURS IV 10/18/18 09:00 11/16/18 10:44 10/18/18 08:56 Heparin Sodium (Porcine) (Heparin 5000 units/ml) 5,000 units EVERY 12 HOURS SUBQ 10/18/18 09:00 11/15/18 20:59 UNV Lorazepam (Ativan 2mg/ml 1ml) 1 mg Q6H PRN IM anxiety 10/18/18 06:00 10/24/18 11:59 Methylprednisolone Sodium Succinate (Solu-MEDROL) 60 mg EVERY 8 HOURS IVP 10/18/18 06:00 11/15/18 21:59 10/18/18 06:07 Sodium Chloride 1,000 ml @ 100 mls/hr Q10H IV 10/18/18 00:30 11/15/18 18:29 10/18/18 09:47 Abhijit Morris MD Oct 18, 2018 09:56
--- NOTE | 2018-10-18 10:01 | NUR ---
RADIOLOGY DEPT. CHEST X-RAY DONE.-P.DYE
--- NOTE | 2018-10-18 10:20 | Diagnostic Imaging Report ---
Indication: Cough Technique: One view of the chest Comparison: 10/16/2018 Findings: Right basilar and left perihilar atelectasis versus scarring appear similar to the prior exam, allowing for differences in degree of inspiration and rotation. There may be decreased consolidation at both lung bases, however There may be a small right pleural effusion. The heart is borderline enlarged. Impression: Unchanged bilateral atelectasis. Possibly improved underlying parenchymal consolidation, over 2 days Suspect residual small right pleural effusion.
[2018-10-18 12:00] VITALS: BP 145/96
--- NOTE | 2018-10-18 13:17 | General Progress Note ---
Assessment/Plan Problem List: (1) toxinc encephalopathy acute (2) Heroin abuse ICD Codes: F11.10 - Heroin abuse SNOMED: 572545695 (3) Opiate dependence, continuous ICD Codes: F11.20 - Opioid dependence, uncomplicated SNOMED: 625479182 Status: stable, progressing Assessment/Plan Ativan prn clonidine prn remeron 15mg po qhs Subjective Neurologic/Psychiatric: Reports: anxiety, depressed Allergies: Coded Allergies: No Known Allergies (Unverified , 10/17/18) Subjective the pt is more alert Objective Last 24 Hour Vital Signs Date Time Temp Pulse Resp B/P (MAP) Pulse Ox O2 Delivery O2 Flow Rate FiO2 10/18/18 12:10 112 18 95 Nasal Cannula 2.0 28 10/18/18 12:00 Nasal Cannula 2.0 10/18/18 12:00 97.6 194 24 145/96 (112) 96 10/18/18 11:51 95 16 96 Nasal Cannula 2.0 28 10/18/18 08:00 119 10/18/18 08:00 Nasal Cannula 2.0 10/18/18 08:00 98.8 120 20 148/78 (101) 98 10/18/18 07:18 93 16 99 Nasal Cannula 2.0 28 10/18/18 07:08 Nasal Cannula 2.0 28 10/18/18 07:08 94 Nasal Cannula 2.0 28 10/18/18 07:08 85 16 94 Nasal Cannula 2.0 28 10/18/18 04:00 99.0 117 20 130/59 (82) 94 10/18/18 04:00 110 10/18/18 04:00 Nasal Cannula 2.0 10/18/18 03:17 94 20 98 Nasal Cannula 3.0 32 10/18/18 03:07 84 20 95 Nasal Cannula 3.0 32 10/18/18 00:00 97.8 101 20 123/68 (86) 95 10/18/18 00:00 2.0 10/18/18 00:00 Nasal Cannula 2.0 10/18/18 00:00 120 10/17/18 23:28 97 18 96 Nasal Cannula 3.0 32 10/17/18 23:18 102 20 96 Nasal Cannula 3.0 32 10/17/18 21:00 121 22 108/72 (84) 97 10/17/18 20:00 113 10/17/18 20:00 2.0 10/17/18 20:00 Bi-pap 10/17/18 20:00 97.8 113 20 100/67 (78) 95 10/17/18 19:40 105 17 98 Nasal Cannula 3.0 32 10/17/18 19:30 102 20 96 Nasal Cannula 3.0 32 10/17/18 19:00 117 23 114/69 (84) 97 10/17/18 18:00 123 24 124/89 (101) 92 10/17/18 17:00 105 19 118/69 (85) 94 10/17/18 16:00 Bi-pap 10/17/18 16:00 98.3 116 22 103/60 (74) 90 10/17/18 16:00 4.0 10/17/18 16:00 108 10/17/18 15:29 100 22 100 Nasal Cannula 2.0 28 10/17/18 15:24 112 20 97 Nasal Cannula 2.0 28 10/17/18 15:00 115 23 142/87 (105) 96 10/17/18 14:00 107 19 107/60 (76) 97 Intake and Output 10/17/18 10/18/18 19:00 07:00 Intake Total 1440 ml 1438 ml Output Total 500 ml 1000 ml Balance 940 ml 438 ml Intake Oral 440 ml 750 ml IV Total 1000 ml 688 ml Output Urine Total 500 ml 1000 ml # Voids 2 1 Laboratory Tests 10/18/18 03:25: White Blood Count 9.2, Red Blood Count 3.49L, Hemoglobin 9.3L, Hematocrit 31.4L , Mean Corpuscular Volume 90, Mean Corpuscular Hemoglobin 26.5L, Mean Corpuscular Hemoglobin Concent 29.4L, Red Cell Distribution Width 17.7H, Platelet Count 186, Mean Platelet Volume 6.5, Neutrophils (%) (Auto) 82.6H, Lymphocytes (%) (Auto) 5.8L, Monocytes (%) (Auto) 10.9H, Eosinophils (%) (Auto) 0.0, Basophils (%) (Auto) 0.7, Sodium Level 139, Potassium Level 4.4, Chloride Level 103, Carbon Dioxide Level 27, Anion Gap 9, Blood Urea Nitrogen 19H, Creatinine 1.1, Estimat Glomerular Filtration Rate , Glucose Level 164H, Calcium Level 8.6, Total Bilirubin 0.4, Aspartate Amino Transf (AST/SGOT) 23, Alanine Aminotransferase (ALT/SGPT) 32, Alkaline Phosphatase 83, Troponin I 0.088H, Pro-B-Type Natriuretic Peptide 6348H, Total Protein 7.0, Albumin 3.0L, Globulin 4.0, Albumin/Globulin Ratio 0.8L, Thyroid Stimulating Hormone (TSH) 0.458 10/18/18 03:35: HIV (1&2) Antibody Rapid Negative 10/18/18 09:05: Arterial Blood pH 7.357, Arterial Blood Partial Pressure CO2 56.8*H, Arterial Blood Partial Pressure O2 63.4L, Arterial Blood HCO3 31.2H, Arterial Blood Oxygen Saturation 91.2L, Arterial Blood Base Excess 4.6H, Cameron Test Positive Height (Feet): 5 Height (Inches): 7.00 Weight (Pounds): 100 General Appearance: no apparent distress, alert, cachetic Neurologic: oriented x 3, depressed affect Spencer Langston MD Oct 18, 2018 13:17
--- NOTE | 2018-10-18 13:23 | NUR ---
NURSE NOTES: With patient's permission, searched patient's belongings for paraphernalia per Dr. Langston's orders. No paraphernalia found in patient's belongings. Also per Dr. De Oliveira ordered no sitter at bedside and all visitors seeing patient must be search first for paraphernalia before allowed to see patient. Order entered, noted, and carried out. Will continue to monitor patient.
[2018-10-18 16:00] VITALS: BP 141/83
--- NOTE | 2018-10-18 16:45 | Consultation ---
DATE OF CONSULTATION: 10/18/2018 INFECTIOUS DISEASES CONSULTATION This consult is for coverage of Dr. Zabala. CONSULTING PHYSICIAN: Jez Espinoza M.D. PRIMARY ATTENDING PHYSICIAN: aVrun Stewart M.D. REASON FOR CONSULTATION: COPD, asthma exacerbation, HIV screening. HISTORY OF PRESENT ILLNESS: This is a 73-year-old male admitted on 10/16/2018 after he was found near by a liquor store in altered mental status. The patient had wheezing, shortness of breath, found to have hypercapnic respiratory failure, put in the ICU, currently transferred to the floor, and became more stable. PAST MEDICAL HISTORY: Significant for hypertension, COPD, asthma, heroin abuse, multiple past admission with chest pain. SOCIAL HISTORY: Likely homeless. Ex-smoker, use heroin, now in methadone program. REVIEW OF SYSTEMS: Runny nose, productive coughing for a while. No nausea. No vomiting. No problem passing urine. PHYSICAL EXAMINATION: VITAL SIGNS: Temperature 98.8, pulse 120, blood pressure 148/78. No fever since hospitalization. HEAD AND NECK: Have no oral lesion. No teeth. [place] conjunctiva. HEART: Tachycardic. LUNGS: Prolonged expiration and wheezing. ABDOMEN: Soft and nontender. EXTREMITIES: No edema. LABORATORY AND DIAGNOSTIC DATA: Chest x-ray showed possible mild interstitial congestion, cardiomegaly. Venous duplex was negative for DVT. WBC 9.2, hemoglobin 9.3, hematocrit 31.4, platelet 186. Sodium 139, potassium 4.4, chloride 103, bicarbonate 27, BUN 19, creatinine 1.1. Troponin was elevated to 0.137. BNP was elevated 6348. Blood gas at the time of admission showed pCO2 of 77.8 came down to 56.8, pO2 63.4. IMPRESSION: COPD, asthma exacerbation. According to the ER doctor report, the patient had HIV but the patient denies this. We will check HIV status again, has history of longstanding substance abuse, heroin with history of smoking, hypercapnic respiratory failure, diastolic CHF, anemia, hypertension. RECOMMENDATION: We will check HIV status again. We will continue with Rocephin. We will follow up the culture. At the end of my exam, I thank Dr. Stewart, for involving me in the care of this patient. Jez Espinoza M.D. DR: Trisha JOB#: [id number] CC: RICHARD
--- NOTE | 2018-10-18 19:20 | NUR ---
NURSE NOTES: Received report from Tex Gunn RN. Patient is awake in bed, A/O x3. No s/s of acute distress noted. Sinus rhythm on secured entrance monitor. Saturating well on room air. Right AC 24g IV, intact and patent running NS @ 100cc/hr; left wrist 22g IV saline lock, intact and patent. Bed locked in lowest position with side rails up x3. Call light left within reach. Will continue to monitor.
--- NOTE | 2018-10-18 19:25 | NUR ---
HAND-OFF: Report given to ANN Duque.
[2018-10-18 20:00] VITALS: BP 148/74
[2018-10-18] MEDS: Heparin 5000 units/ml inj SUBQ SCH (20:29)
[2018-10-18] MEDS: cefTRIAXone 1 GM in D5W 55 ML IVPB SCH (22:31)
[2018-10-19] VITALS: BP 149/90
--- NOTE | 2018-10-19 | Progress Note ---
DATE: 10/18/2018 CARDIOLOGY PROGRESS NOTE SUBJECTIVE: The patient's condition is somewhat improved, but he remains impaired. He now complains of leg pain, foot pain, and toe pain where his nail bed was broken off. He still has congestion and shortness of breath, but is much improved. He is off BiPAP. The patient states that he does not have HIV/AIDS although some hospital records in the past have noted this. OBJECTIVE: VITAL SIGNS: Blood pressure 130/59, heart rate 117, respiratory rate 20, and temperature max 99. Monitored rhythm sinus and sinus tachycardia with atrial ectopy. HEENT: Oropharynx clear with no thrush. NECK: Supple. LUNGS: Coarse breath sounds and rhonchi. CARDIAC: Regular rhythm. Rapid rate. Normal S1, S2 with a fourth heart sound. ABDOMEN: Soft, nontender. EXTREMITIES: There is no edema. Pulses are diminished in the periphery. SKIN: Skin with multiple ecchymoses and abrasions and some ulcers on his left leg. LABORATORY DATA: White count 9.2, hemoglobin 9.3. ABG 7.35, 57, 63. Sodium 139, potassium 4.4, bicarb 27, BUN 19, creatinine 1.1. Troponin . Pro-natriuretic peptide 6348. Albumin 3. IMPRESSION: 1. Healthcare-acquired pneumonia. 2. COPD exacerbation. 3. Paroxysmal bronchospasm. 4. Acute myocardial ischemia and non-ST elevation infarction. 5. Acute on chronic diastolic congestive heart failure, improved. 6. Mild protein-calorie malnutrition. 7. Peripheral artery disease with stasis ulcers. 8. Questionable history a HIV/AIDS. 9. History of substance abuse. PLAN: 1. Antimicrobials. 2. Respiratory hygiene. 3. Skin care. 4. Arterial duplex scan. 5. Echocardiogram to evaluate PA pressure. 6. Repeat HIV test. 7. Inhaled bronchodilators. 8. Steroid taper. 9. Withdrawal precautions. Justus Grewal M.D. DR: DIXON JOB#: [id number] CC: RICHARD
[2018-10-19] MEDS: Albuterol/Ipratropium 3ml neb HHN SCH ×6 (02:58→23:11)
[2018-10-19 04:00] VITALS: BP 147/82
[2018-10-19] MEDS: Solu-MEDROL 125mg Inj IVP SCH ×3 (06:24→21:24)
--- NOTE | 2018-10-19 07:20 | NUR ---
NURSE NOTES:RECEIVED PT RESTING IN BED COMFORTABLY AOX4 ,DENIES CP OR ANY DISCOMFORT AT THIS TIME.[facility] CAME TO SEE THE PT.NO NEW ORDERS NOTED AT THIS TIME.FULL BODY ASSESSMENT DONE.NO ACUTE DISTRESS NOTED AT THIS TIME.WILL CONT TO MONITOR.
--- NOTE | 2018-10-19 07:40 | NUR ---
HAND-OFF: Report given to Tex Clarke RN.
--- NOTE | 2018-10-19 07:53 | General Progress Note ---
Assessment/Plan Problem List: (1) Hypercapnia ICD Codes: R06.89 - Other abnormalities of breathing SNOMED: 17107155 (2) Opiate dependence, continuous ICD Codes: F11.20 - Opioid dependence, uncomplicated SNOMED: 611746645 (3) CHF (congestive heart failure) ICD Codes: I50.9 - CHF (congestive heart failure) SNOMED: 21949286 Qualifiers: Qualified Codes: I50.9 - Heart failure, unspecified (4) Atrial flutter ICD Codes: I48.92 - Unspecified atrial flutter SNOMED: 8216365 (5) Diabetes mellitus ICD Codes: E11.9 - Type 2 diabetes mellitus without complications SNOMED: 36652111 (6) COPD exacerbation ICD Codes: J44.1 - Chronic obstructive pulmonary disease with (acute) exacerbation SNOMED: 221283631, 708166708 (7) toxinc encephalopathy acute Status: stable, progressing Assessment/Plan cont current rx follow up abx steroids- wean per pulm diuresis resp rx abx dvt/stress ulcer prophylaxis compliance stressed Subjective ROS Limited/Unobtainable: No Constitutional: Reports: malaise, weakness HEENT: Reports: no symptoms Cardiovascular: Reports: no symptoms Respiratory: Reports: no symptoms Gastrointestinal/Abdominal: Reports: no symptoms Genitourinary: Reports: no symptoms Neurologic/Psychiatric: Reports: anxiety Endocrine: Reports: no symptoms Hematologic/Lymphatic: Reports: anemia Allergies: Coded Allergies: No Known Allergies (Unverified , 10/17/18) All Systems: reviewed and negative except above Subjective currently off bipap. refused bipap. no new complaints. no fever or chills. no sob. agitated but seems less confused. Objective Last 24 Hour Vital Signs Date Time Temp Pulse Resp B/P (MAP) Pulse Ox O2 Delivery O2 Flow Rate FiO2 10/19/18 07:11 Nasal Cannula 2.0 28 10/19/18 07:11 82 18 97 Nasal Cannula 2.0 28 10/19/18 07:00 Nasal Cannula 2.0 28 10/19/18 07:00 97 Nasal Cannula 2.0 28 10/19/18 04:00 97 10/19/18 04:00 98.2 90 32 147/82 (103) 97 10/19/18 04:00 Nasal Cannula 2.0 10/19/18 02:58 Nasal Cannula 2.0 28 10/19/18 02:58 Nasal Cannula 2.0 28 10/19/18 00:00 104 10/19/18 00:00 98.7 110 32 149/90 (109) 90 10/19/18 00:00 Nasal Cannula 2.0 10/18/18 23:44 84 18 98 Nasal Cannula 2.0 28 10/18/18 23:34 83 18 98 Nasal Cannula 2.0 28 10/18/18 20:00 98.8 97 32 148/74 (98) 95 10/18/18 20:00 96 10/18/18 20:00 Nasal Cannula 2.0 10/18/18 19:51 86 18 97 Nasal Cannula 2.0 28 10/18/18 19:41 85 18 92 Nasal Cannula 2.0 28 10/18/18 19:41 92 Nasal Cannula 2.0 28 10/18/18 19:41 Nasal Cannula 2.0 28 10/18/18 16:00 98.3 112 23 141/83 (102) 98 10/18/18 16:00 104 10/18/18 16:00 Nasal Cannula 2.0 10/18/18 15:33 105 18 98 Nasal Cannula 2.0 28 10/18/18 15:22 90 16 92 Nasal Cannula 2.0 28 10/18/18 12:10 112 18 95 Nasal Cannula 2.0 28 10/18/18 12:00 Nasal Cannula 2.0 10/18/18 12:00 95 10/18/18 12:00 97.6 94 24 145/96 (112) 96 10/18/18 11:51 95 16 96 Nasal Cannula 2.0 28 10/18/18 08:00 119 10/18/18 08:00 Nasal Cannula 2.0 10/18/18 08:00 98.8 120 20 148/78 (101) 98 Intake and Output 10/18/18 10/19/18 19:00 07:00 Intake Total 1348 ml Output Total 1500 ml Balance -152 ml Intake Oral 240 ml IV Total 1108 ml Output Urine Total 1500 ml Laboratory Tests 10/18/18 09:05: Arterial Blood pH 7.357, Arterial Blood Partial Pressure CO2 56.8*H, Arterial Blood Partial Pressure O2 63.4L, Arterial Blood HCO3 31.2H, Arterial Blood Oxygen Saturation 91.2L, Arterial Blood Base Excess 4.6H, Cameron Test Positive Height (Feet): 5 Height (Inches): 7.00 Weight (Pounds): 105 Objective General Appearance: WD/WN, thin Neck: supple Cardiovascular: normal rate, regular rhythm Respiratory/Chest: chest wall non-tender, lungs clear, normal breath sounds, no respiratory distress Abdomen: normal bowel sounds, non tender, soft, no organomegaly Edema: no edema noted Arm (L), no edema noted Arm (R), no edema noted Leg (L), no edema noted Leg (R), no edema noted Pedal (L), no edema noted Pedal (R), no edema noted Generalized Varun Stewart MD Oct 19, 2018 07:53
[2018-10-19 08:00] VITALS: BP 138/77
--- NOTE | 2018-10-19 10:20 | Pulmonology Progress Note ---
Assessment/Plan Assessment/Plan 1. Acute respiratory failure with hypercapnia. 2. HIV. 3. COPD. 4. CHF. DISCUSSION: Continue nocturnal BiPAP ABG improved; Continue diuresis, antibiotics, pulmonary hygiene and IV steroids. I will continue to follow carefully. Discussed with nursing staff. Subjective Interval Events: None new Constitutional: Reports: no symptoms HEENT: Repors: no symptoms Respiratory: Reports: no symptoms Cardiovascular: Reports: no symptoms Gastrointestinal/Abdominal: Reports: no symptoms Allergies: Coded Allergies: No Known Allergies (Unverified , 10/17/18) Objective Last 24 Hour Vital Signs Date Time Temp Pulse Resp B/P (MAP) Pulse Ox O2 Delivery O2 Flow Rate FiO2 10/19/18 07:11 Nasal Cannula 2.0 28 10/19/18 07:11 82 18 97 Nasal Cannula 2.0 28 10/19/18 07:00 Nasal Cannula 2.0 28 10/19/18 07:00 97 Nasal Cannula 2.0 28 10/19/18 04:00 97 10/19/18 04:00 98.2 90 32 147/82 (103) 97 10/19/18 04:00 Nasal Cannula 2.0 10/19/18 02:58 Nasal Cannula 2.0 28 10/19/18 02:58 Nasal Cannula 2.0 28 10/19/18 00:00 104 10/19/18 00:00 98.7 110 32 149/90 (109) 90 10/19/18 00:00 Nasal Cannula 2.0 10/18/18 23:44 84 18 98 Nasal Cannula 2.0 28 10/18/18 23:34 83 18 98 Nasal Cannula 2.0 28 10/18/18 20:00 98.8 97 32 148/74 (98) 95 10/18/18 20:00 96 10/18/18 20:00 Nasal Cannula 2.0 10/18/18 19:51 86 18 97 Nasal Cannula 2.0 28 10/18/18 19:41 85 18 92 Nasal Cannula 2.0 28 10/18/18 19:41 92 Nasal Cannula 2.0 28 10/18/18 19:41 Nasal Cannula 2.0 28 10/18/18 16:00 98.3 112 23 141/83 (102) 98 10/18/18 16:00 104 10/18/18 16:00 Nasal Cannula 2.0 10/18/18 15:33 105 18 98 Nasal Cannula 2.0 28 10/18/18 15:22 90 16 92 Nasal Cannula 2.0 28 10/18/18 12:10 112 18 95 Nasal Cannula 2.0 28 10/18/18 12:00 Nasal Cannula 2.0 10/18/18 12:00 95 10/18/18 12:00 97.6 94 24 145/96 (112) 96 10/18/18 11:51 95 16 96 Nasal Cannula 2.0 28 Intake and Output 10/18/18 10/19/18 19:00 07:00 Intake Total 1348 ml Output Total 1500 ml Balance -152 ml Intake Oral 240 ml IV Total 1108 ml Output Urine Total 1500 ml General Appearance: no acute distress HEENT: normocephalic Respiratory/Chest: chest wall non-tender, lungs clear Cardiovascular: normal peripheral pulses, normal rate Abdomen: normal bowel sounds Microbiology Date/Time Source Procedure Growth Status 10/17/18 19:31 Sputum Gram Stain - Final Resulted 10/17/18 19:31 Sputum Sputum Culture Pending Resulted 10/16/18 17:10 Nasal Nares Influenza Types A,B Antigen (SHAWNEE) - Final Complete 10/16/18 17:45 Rectum - Final NO CARBAPENEM-RESISTANT ENTEROBACTERI... Complete 10/16/18 17:45 Rectum VRE Culture - Final Enterococcus Faecalis - Vre Complete Current Medications Medications (Trade) Dose Ordered Sig/Aimee Route PRN Reason Start Time Stop Time Status Last Admin Dose Admin Acetaminophen (Tylenol) 650 mg Q6H PRN ORAL Mild Pain/Temp > 100.5 10/18/18 04:45 11/17/18 04:44 10/18/18 20:26 Albuterol/ Ipratropium (Albuterol/ Ipratropium) 3 ml Q4HRT HHN 10/18/18 03:00 10/21/18 22:59 10/18/18 23:34 Ceftriaxone Sodium 1 gm/ Dextrose 55 ml @ 110 mls/hr Q24H IVPB 10/18/18 22:00 10/23/18 21:59 10/18/18 22:31 Furosemide (Lasix) 20 mg EVERY 12 HOURS IV 10/18/18 09:00 11/16/18 10:44 10/18/18 20:25 Heparin Sodium (Porcine) (Heparin 5000 units/ml) 5,000 units EVERY 12 HOURS SUBQ 10/18/18 21:00 11/17/18 20:59 10/18/18 20:29 Lorazepam (Ativan 2mg/ml 1ml) 1 mg Q6H PRN IM anxiety 10/18/18 06:00 10/24/18 11:59 Methylprednisolone Sodium Succinate (Solu-MEDROL) 60 mg EVERY 8 HOURS IVP 10/18/18 06:00 11/15/18 21:59 10/19/18 06:24 Mirtazapine (Remeron) 15 mg BEDTIME ORAL 10/18/18 21:00 11/17/18 20:59 10/18/18 20:25 Sodium Chloride 1,000 ml @ 100 mls/hr Q10H IV 10/18/18 00:30 11/15/18 18:29 10/19/18 06:25 Abhijit Morris MD Oct 19, 2018 10:20
--- NOTE | 2018-10-19 10:45 | Infectious Diseases Prog Note ---
Assessment/Plan Assessment/Plan IMPRESSION: COPD, asthma exacerbation. HIV screen: negative. longstanding Heroin abuse, Nicotine dependence hypercapnic respiratory failure, diastolic CHF, anemia, hypertension. P; Continue Rocephin Subjective ROS Limited/Unobtainable: No Constitutional: Reports: no symptoms, other - feels better Respiratory: Reports: productive cough Cardiovascular: Reports: no symptoms Gastrointestinal/Abdominal: Reports: no symptoms Genitourinary: Reports: no symptoms Allergies: Coded Allergies: No Known Allergies (Unverified , 10/17/18) Objective Vital Signs Last 24 Hour Vital Signs Date Time Temp Pulse Resp B/P (MAP) Pulse Ox O2 Delivery O2 Flow Rate FiO2 10/19/18 07:11 Nasal Cannula 2.0 28 10/19/18 07:11 82 18 97 Nasal Cannula 2.0 28 10/19/18 07:00 Nasal Cannula 2.0 28 10/19/18 07:00 97 Nasal Cannula 2.0 28 10/19/18 04:00 97 10/19/18 04:00 98.2 90 32 147/82 (103) 97 10/19/18 04:00 Nasal Cannula 2.0 10/19/18 02:58 Nasal Cannula 2.0 28 10/19/18 02:58 Nasal Cannula 2.0 28 10/19/18 00:00 104 10/19/18 00:00 98.7 110 32 149/90 (109) 90 10/19/18 00:00 Nasal Cannula 2.0 10/18/18 23:44 84 18 98 Nasal Cannula 2.0 28 10/18/18 23:34 83 18 98 Nasal Cannula 2.0 28 10/18/18 20:00 98.8 97 32 148/74 (98) 95 10/18/18 20:00 96 10/18/18 20:00 Nasal Cannula 2.0 10/18/18 19:51 86 18 97 Nasal Cannula 2.0 28 10/18/18 19:41 85 18 92 Nasal Cannula 2.0 28 10/18/18 19:41 92 Nasal Cannula 2.0 28 10/18/18 19:41 Nasal Cannula 2.0 28 10/18/18 16:00 98.3 112 23 141/83 (102) 98 10/18/18 16:00 104 10/18/18 16:00 Nasal Cannula 2.0 10/18/18 15:33 105 18 98 Nasal Cannula 2.0 28 10/18/18 15:22 90 16 92 Nasal Cannula 2.0 28 10/18/18 12:10 112 18 95 Nasal Cannula 2.0 28 10/18/18 12:00 Nasal Cannula 2.0 10/18/18 12:00 95 10/18/18 12:00 97.6 94 24 145/96 (112) 96 10/18/18 11:51 95 16 96 Nasal Cannula 2.0 28 Height (Feet): 5 Height (Inches): 7.00 Weight (Pounds): 105 General Appearance: cachetic HEENT: mucous membranes moist Respiratory/Chest: decreased breath sounds Cardiovascular: normal rate Abdomen: soft, non tender Extremities: no edema Neurologic/Psychiatric: alert, responsive Microbiology Date/Time Source Procedure Growth Status 10/17/18 19:31 Sputum Gram Stain - Final Resulted 10/17/18 19:31 Sputum Sputum Culture Pending Resulted 10/16/18 17:10 Nasal Nares Influenza Types A,B Antigen (SHAWNEE) - Final Complete 10/16/18 17:45 Rectum - Final NO CARBAPENEM-RESISTANT ENTEROBACTERI... Complete 10/16/18 17:45 Rectum VRE Culture - Final Enterococcus Faecalis - Vre Complete Current Medications Medications (Trade) Dose Ordered Sig/Aimee Route PRN Reason Start Time Stop Time Status Last Admin Dose Admin Acetaminophen (Tylenol) 650 mg Q6H PRN ORAL Mild Pain/Temp > 100.5 10/18/18 04:45 11/17/18 04:44 10/18/18 20:26 Albuterol/ Ipratropium (Albuterol/ Ipratropium) 3 ml Q4HRT HHN 10/18/18 03:00 10/21/18 22:59 10/18/18 23:34 Ceftriaxone Sodium 1 gm/ Dextrose 55 ml @ 110 mls/hr Q24H IVPB 10/18/18 22:00 10/23/18 21:59 10/18/18 22:31 Furosemide (Lasix) 20 mg EVERY 12 HOURS IV 10/18/18 09:00 11/16/18 10:44 10/18/18 20:25 Heparin Sodium (Porcine) (Heparin 5000 units/ml) 5,000 units EVERY 12 HOURS SUBQ 10/18/18 21:00 11/17/18 20:59 10/18/18 20:29 Lorazepam (Ativan 2mg/ml 1ml) 1 mg Q6H PRN IM anxiety 10/18/18 06:00 10/24/18 11:59 Methylprednisolone Sodium Succinate (Solu-MEDROL) 60 mg EVERY 8 HOURS IVP 10/18/18 06:00 11/15/18 21:59 10/19/18 06:24 Mirtazapine (Remeron) 15 mg BEDTIME ORAL 10/18/18 21:00 11/17/18 20:59 10/18/18 20:25 Sodium Chloride 1,000 ml @ 100 mls/hr Q10H IV 10/18/18 00:30 11/15/18 18:29 10/19/18 06:25 Jez Espinoza MD Oct 19, 2018 10:45
[2018-10-19] MEDS: Heparin 5000 units/ml inj SUBQ SCH ×2 (11:22→21:27)
--- NOTE | 2018-10-19 11:56 | General Progress Note ---
Assessment/Plan Problem List: (1) toxinc encephalopathy acute (2) Heroin abuse ICD Codes: F11.10 - Heroin abuse SNOMED: 614094026 (3) Opiate dependence, continuous ICD Codes: F11.20 - Opioid dependence, uncomplicated SNOMED: 324851489 Status: stable Assessment/Plan Ativan prn clonidine prn remeron 15mg po qhs Subjective Neurologic/Psychiatric: Reports: anxiety, depressed, emotional problems Allergies: Coded Allergies: No Known Allergies (Unverified , 10/17/18) Subjective the pt stated that he had muscle pain and is tired. no agitation Objective Last 24 Hour Vital Signs Date Time Temp Pulse Resp B/P (MAP) Pulse Ox O2 Delivery O2 Flow Rate FiO2 10/19/18 11:00 Nasal Cannula 2.0 28 10/19/18 11:00 97 18 97 Nasal Cannula 2.0 28 10/19/18 08:00 97.9 89 24 138/77 (97) 94 10/19/18 07:11 Nasal Cannula 2.0 28 10/19/18 07:11 82 18 97 Nasal Cannula 2.0 28 10/19/18 07:00 Nasal Cannula 2.0 28 10/19/18 07:00 97 Nasal Cannula 2.0 28 10/19/18 04:00 97 10/19/18 04:00 98.2 90 32 147/82 (103) 97 10/19/18 04:00 Nasal Cannula 2.0 10/19/18 02:58 Nasal Cannula 2.0 28 10/19/18 02:58 Nasal Cannula 2.0 28 10/19/18 00:00 104 10/19/18 00:00 98.7 110 32 149/90 (109) 90 10/19/18 00:00 Nasal Cannula 2.0 10/18/18 23:44 84 18 98 Nasal Cannula 2.0 28 10/18/18 23:34 83 18 98 Nasal Cannula 2.0 28 10/18/18 20:00 98.8 97 32 148/74 (98) 95 10/18/18 20:00 96 10/18/18 20:00 Nasal Cannula 2.0 10/18/18 19:51 86 18 97 Nasal Cannula 2.0 28 10/18/18 19:41 85 18 92 Nasal Cannula 2.0 28 10/18/18 19:41 92 Nasal Cannula 2.0 28 10/18/18 19:41 Nasal Cannula 2.0 28 10/18/18 16:00 98.3 112 23 141/83 (102) 98 10/18/18 16:00 104 10/18/18 16:00 Nasal Cannula 2.0 10/18/18 15:33 105 18 98 Nasal Cannula 2.0 28 10/18/18 15:22 90 16 92 Nasal Cannula 2.0 28 10/18/18 12:10 112 18 95 Nasal Cannula 2.0 28 10/18/18 12:00 Nasal Cannula 2.0 10/18/18 12:00 95 10/18/18 12:00 97.6 94 24 145/96 (112) 96 Intake and Output 10/18/18 10/19/18 19:00 07:00 Intake Total 1348 ml Output Total 1500 ml Balance -152 ml Intake Oral 240 ml IV Total 1108 ml Output Urine Total 1500 ml Height (Feet): 5 Height (Inches): 7.00 Weight (Pounds): 105 General Appearance: no apparent distress, alert Neurologic: oriented x 3, responsive, depressed affect Spencer Langston MD Oct 19, 2018 11:56
[2018-10-19 12:00] VITALS: BP 146/87
[2018-10-19] MEDS ORDERED: Tubing IV Secondary IV ONE (15:30)
[2018-10-19 16:38] VITALS: BP 132/76
--- NOTE | 2018-10-19 18:18 | NUR ---
CASE MANAGEMENT: REVIEW 10/19/2018 SI:RESPIRATORY DISTRESS. COPD EXACERBATION. T 98.1 HR 83 RR 22 B/P 132/76 SATS 92% ON 2L/NC NO LABS TODAY IS: IVF @ 100 mL/HR SOLU MEDROL IV Q8H LASIX IV Q12H CEFTRIAXONE IV Q24H ALBUTEROL Q4H HHN JAVIER STATUS DCP: PATIENT TO BE DISCHARGED TO HOME ONCE MEDICALLY CLEARED PLAN OF CARE: CONTINUE IV ANTIBx CONTINUE CURRENT MANAGEMENT
--- NOTE | 2018-10-19 19:00 | NUR ---
HAND-OFF: Report given to .SANJU JUAREZ.
--- NOTE | 2018-10-19 19:20 | NUR ---
NURSE NOTES: Received report from Tex Clarke RN. Patient is awake in bed, A/O x3. No s/s of acute distress noted. Sinus rhythm on cafeteria monitor. Saturating well on room air. Right AC 24g IV, intact and patent running NS @ 100cc/hr; left wrist 22g IV saline lock, intact and patent. Bed locked in lowest position with side rails up x3. Call light left within reach. Will continue to monitor.
[2018-10-19 20:00] VITALS: BP 130/77
[2018-10-19] MEDS: cefTRIAXone 1 GM in D5W 55 ML IVPB SCH (21:25)
[2018-10-20] VITALS (7 sets, daily range): BP systolic 126–174; BP diastolic 70–86
[2018-10-20] MEDS: Albuterol/Ipratropium 3ml neb HHN SCH ×6 (03:00→23:33)
--- NOTE | 2018-10-20 05:15 | Progress Note ---
DATE: 10/19/2018 CARDIOLOGY PROGRESS NOTE SUBJECTIVE: The patient feels better. Less short of breath. Refuses BiPAP. minimally overnight. OBJECTIVE: VITAL SIGNS: Blood pressure 147/82, heart rate 90, respiratory rate 32, afebrile. Respiratory rate ranging from 18 to 32. LUNGS: Diminished breath sounds. Few rhonchi. HEART: Regular rhythm and rate. Normal S1 and S2. ABDOMEN: Soft. EXTREMITIES: No edema. Stasis derm changes persist. LABORATORY DATA: VRE of the stool positive. No new laboratory studies today. IMPRESSION: 1. Acute myocardial infarction, non-ST elevation type. 2. Acute on chronic diastolic congestive heart failure. 3. Chronic obstructive pulmonary disease, noted community-acquired pneumonia. 4. History of heroin abuse. 5. Mild protein calorie malnutrition. PLAN: 1. Antimicrobials. 2. Bronchodilators. 3. Respiratory hygiene. 4. Documentation adjudged that the patient is HIV negative. 5. Diuresis efforts and titration of anti-failure regimen. Justus Grewal M.D. DR: CAPRI JOB#: [id number] CC:
[2018-10-20] MEDS: Solu-MEDROL 125mg Inj IVP SCH ×3 (05:18→21:17)
[2018-10-20 06:16] LABS: HEMATOCRIT 33.6 % (42.0-52.0); HEMOGLOBIN 10.2 G/DL (14.2-18.0); MEAN CORPUSCULAR VOLUME 89 FL (80-99); PLATELET COUNT 174 K/UL (150-450); RED BLOOD COUNT 3.77 M/UL (4.70-6.10); RED CELL DISTRIBUTION WIDTH 17.8 % (11.6-14.8); WHITE BLOOD COUNT 11.2 K/UL (4.8-10.8)
--- NOTE | 2018-10-20 06:33 | NUR ---
NURSE NOTES: Dr. Uri MD made aware of patient having 6 beats of vtach at 0411. Awaiting response. Patient remains asleep and without s/s of acute distress. Will continue to monitor.
[2018-10-20 06:56] LABS: ALANINE AMINOTRANSFERASE 24 U/L (12-78); ALBUMIN 2.5 G/DL (3.4-5.0); ALBUMIN/GLOBULIN RATIO 0.7 (1.0-2.7); ALKALINE PHOSPHATASE 70 U/L (46-116); ANION GAP 4 mmol/L (5-15); ASPARTATE AMINO TRANSFERASE 16 U/L (15-37); BILIRUBIN,TOTAL 0.2 MG/DL (0.2-1.0); BLOOD UREA NITROGEN 30 mg/dL (7-18); CALCIUM 8.3 MG/DL (8.5-10.1); CARBON DIOXIDE 37 MMOL/L (21-32); CHLORIDE 103 MMOL/L (98-107); CREATININE 1.1 MG/DL (0.55-1.30); POTASSIUM 3.9 MMOL/L (3.5-5.1); SODIUM 144 MMOL/L (136-145)
--- NOTE | 2018-10-20 07:00 | NUR ---
HAND-OFF: Report given to Disha Echevarria RN.
--- NOTE | 2018-10-20 07:45 | NUR ---
NURSE NOTES: RECEIVED PATIENT FROM [facility] BILL[facility].PATIENT AWAKE AND ABLE TO VERBALIZED NEEDS KNOW.DENIES PAIN NO SHORT OF BREATH NOTED.MAG LEVEL 1.6 TODAY, DR ELLIOTT PAGED AND NOTIFIED.
--- NOTE | 2018-10-20 08:30 | NUR ---
NURSE NOTES: Dr Stewart called back with orders to give 2 gms magnesium ivpb,noted and carried out.
[2018-10-20] MEDS: Lisinopril 20mg tab ORAL SCH (08:43)
[2018-10-20] MEDS: Heparin 5000 units/ml inj SUBQ SCH ×2 (08:45→21:19)
--- NOTE | 2018-10-20 08:46 | General Progress Note ---
Assessment/Plan Problem List: (1) Hypercapnia ICD Codes: R06.89 - Other abnormalities of breathing SNOMED: 05896215 (2) Opiate dependence, continuous ICD Codes: F11.20 - Opioid dependence, uncomplicated SNOMED: 772583399 (3) CHF (congestive heart failure) ICD Codes: I50.9 - CHF (congestive heart failure) SNOMED: 44530388 Qualifiers: Qualified Codes: I50.9 - Heart failure, unspecified (4) Atrial flutter ICD Codes: I48.92 - Unspecified atrial flutter SNOMED: 9230796 (5) Diabetes mellitus ICD Codes: E11.9 - Type 2 diabetes mellitus without complications SNOMED: 44374796 (6) COPD exacerbation ICD Codes: J44.1 - Chronic obstructive pulmonary disease with (acute) exacerbation SNOMED: 228631228, 958360513 (7) toxinc encephalopathy acute Status: stable Assessment/Plan cont current rx follow up abx steroids- wean per pulm diuresis resp rx abx dvt/stress ulcer prophylaxis compliance stressed Subjective ROS Limited/Unobtainable: No Constitutional: Reports: malaise, weakness HEENT: Reports: no symptoms Cardiovascular: Reports: no symptoms Respiratory: Reports: cough, shortness of breath Gastrointestinal/Abdominal: Reports: no symptoms Genitourinary: Reports: no symptoms Neurologic/Psychiatric: Reports: no symptoms Endocrine: Reports: no symptoms Hematologic/Lymphatic: Reports: no symptoms Allergies: Coded Allergies: No Known Allergies (Unverified , 10/17/18) All Systems: reviewed and negative except above Subjective no events. resting. refusing bipap. denies cp/sob. Objective Last 24 Hour Vital Signs Date Time Temp Pulse Resp B/P (MAP) Pulse Ox O2 Delivery O2 Flow Rate FiO2 10/20/18 07:08 Nasal Cannula 3.0 32 10/20/18 07:08 Nasal Cannula 3.0 32 10/20/18 07:08 Nasal Cannula 3.0 32 10/20/18 07:08 99 Nasal Cannula 3.0 32 10/20/18 04:00 98.1 85 24 142/86 (104) 95 10/20/18 04:00 Nasal Cannula 2.0 10/20/18 03:48 91 10/20/18 03:32 Nasal Cannula 10/20/18 03:31 Nasal Cannula 10/20/18 00:00 Nasal Cannula 2.0 10/20/18 00:00 98.1 105 20 126/79 (95) 95 10/19/18 23:49 104 10/19/18 23:21 92 22 96 Nasal Cannula 3.0 32 10/19/18 23:11 86 22 93 Nasal Cannula 3.0 32 10/19/18 20:00 97.4 100 24 130/77 (94) 94 10/19/18 20:00 Nasal Cannula 2.0 10/19/18 19:09 90 Nasal Cannula 2.0 28 10/19/18 19:09 Nasal Cannula 2.0 28 10/19/18 19:08 86 20 94 Nasal Cannula 3.0 32 10/19/18 19:05 84 24 90 Nasal Cannula 2.0 28 10/19/18 19:01 109 10/19/18 16:38 98.1 83 22 132/76 (94) 92 10/19/18 16:00 100 10/19/18 16:00 Nasal Cannula 2.0 10/19/18 15:00 Nasal Cannula 2.0 28 10/19/18 15:00 Nasal Cannula 2.0 28 10/19/18 12:00 98.0 109 23 146/87 (106) 95 10/19/18 12:00 Nasal Cannula 2.0 10/19/18 12:00 83 10/19/18 11:00 Nasal Cannula 2.0 28 10/19/18 11:00 97 18 97 Nasal Cannula 2.0 28 Intake and Output 10/19/18 10/20/18 19:00 07:00 Intake Total 1100 ml 1873.333 ml Output Total 900 ml 2000 ml Balance 200 ml -126.667 ml Intake Oral 850 ml 720 ml IV Total 250 ml 1153.333 ml Output Urine Total 900 ml 2000 ml Laboratory Tests 10/20/18 05:30: White Blood Count 11.2H, Red Blood Count 3.77L, Hemoglobin 10.2L, Hematocrit 33.6L, Mean Corpuscular Volume 89, Mean Corpuscular Hemoglobin 27.0, Mean Corpuscular Hemoglobin Concent 30.3L, Red Cell Distribution Width 17.8H, Platelet Count 174, Mean Platelet Volume 6.3L, Neutrophils (%) (Auto) , Lymphocytes (%) (Auto) , Monocytes (%) (Auto) , Eosinophils (%) (Auto) , Basophils (%) (Auto) , Neutrophils % (Manual) [Pending], Lymphocytes % (Manual) [Pending], Platelet Estimate [Pending], Platelet Morphology [Pending], Sodium Level 144, Potassium Level 3.9, Chloride Level 103, Carbon Dioxide Level 37H, Anion Gap 4L, Blood Urea Nitrogen 30H, Creatinine 1.1, Estimat Glomerular Filtration Rate , Glucose Level 125H, Calcium Level 8.3L, Magnesium Level 1.6L, Total Bilirubin 0.2, Aspartate Amino Transf (AST/SGOT) 16, Alanine Aminotransferase (ALT/SGPT) 24, Alkaline Phosphatase 70, Pro-B-Type Natriuretic Peptide 7911H, Total Protein 6.2L, Albumin 2.5L, Globulin 3.7, Albumin/Globulin Ratio 0.7L Height (Feet): 5 Height (Inches): 7.00 Weight (Pounds): 106 Objective General Appearance: WD/WN, thin Neck: supple Cardiovascular: normal rate, regular rhythm Respiratory/Chest: chest wall non-tender, lungs clear, normal breath sounds, no respiratory distress Abdomen: normal bowel sounds, non tender, soft, no organomegaly Edema: no edema noted Arm (L), no edema noted Arm (R), no edema noted Leg (L), no edema noted Leg (R), no edema noted Pedal (L), no edema noted Pedal (R), no edema noted Generalized Varun Stewart MD Oct 20, 2018 08:46
--- NOTE | 2018-10-20 09:15 | Infectious Diseases Prog Note ---
Assessment/Plan Assessment/Plan antibiotics : ceftriaxone A 1. pneumonia 2. COPD exacerbation 3. CHF 4. diabetes mellitus 5. anemia P 1. continue ceftriaxone 2. will follow up cultures Subjective Constitutional: Denies: fever, chills Respiratory: Reports: shortness of breath, dry cough Gastrointestinal/Abdominal: Reports: vomiting, diarrhea; Denies: nausea Allergies: Coded Allergies: No Known Allergies (Unverified , 10/17/18) Objective Vital Signs Last 24 Hour Vital Signs Date Time Temp Pulse Resp B/P (MAP) Pulse Ox O2 Delivery O2 Flow Rate FiO2 10/20/18 08:43 174/70 10/20/18 07:08 Nasal Cannula 3.0 32 10/20/18 07:08 Nasal Cannula 3.0 32 10/20/18 07:08 Nasal Cannula 3.0 32 10/20/18 07:08 99 Nasal Cannula 3.0 32 10/20/18 04:00 98.1 85 24 142/86 (104) 95 10/20/18 04:00 Nasal Cannula 2.0 10/20/18 03:48 91 10/20/18 03:32 Nasal Cannula 10/20/18 03:31 Nasal Cannula 10/20/18 00:00 Nasal Cannula 2.0 10/20/18 00:00 98.1 105 20 126/79 (95) 95 10/19/18 23:49 104 10/19/18 23:21 92 22 96 Nasal Cannula 3.0 32 10/19/18 23:11 86 22 93 Nasal Cannula 3.0 32 10/19/18 20:00 97.4 100 24 130/77 (94) 94 10/19/18 20:00 Nasal Cannula 2.0 10/19/18 19:09 90 Nasal Cannula 2.0 28 10/19/18 19:09 Nasal Cannula 2.0 28 10/19/18 19:08 86 20 94 Nasal Cannula 3.0 32 10/19/18 19:05 84 24 90 Nasal Cannula 2.0 28 10/19/18 19:01 109 10/19/18 16:38 98.1 83 22 132/76 (94) 92 10/19/18 16:00 100 10/19/18 16:00 Nasal Cannula 2.0 10/19/18 15:00 Nasal Cannula 2.0 28 10/19/18 15:00 Nasal Cannula 2.0 28 10/19/18 12:00 98.0 109 23 146/87 (106) 95 10/19/18 12:00 Nasal Cannula 2.0 10/19/18 12:00 83 10/19/18 11:00 Nasal Cannula 2.0 28 10/19/18 11:00 97 18 97 Nasal Cannula 2.0 28 Height (Feet): 5 Height (Inches): 7.00 Weight (Pounds): 106 Respiratory/Chest: lungs clear Cardiovascular: normal rate, regular rhythm, no gallop/murmur Abdomen: soft, non tender Extremities: no edema Microbiology Date/Time Source Procedure Growth Status 10/17/18 19:31 Sputum Gram Stain - Final Complete 10/17/18 19:31 Sputum Sputum Culture - Final NORMAL UPPER RESPIRATORY STAN PRESENT Complete Laboratory Tests Test 10/20/18 05:30 White Blood Count 11.2 K/UL (4.8-10.8) H Red Blood Count 3.77 M/UL (4.70-6.10) L Hemoglobin 10.2 G/DL (14.2-18.0) L Hematocrit 33.6 % (42.0-52.0) L Mean Corpuscular Volume 89 FL (80-99) Mean Corpuscular Hemoglobin 27.0 PG (27.0-31.0) Mean Corpuscular Hemoglobin Concent 30.3 G/DL (32.0-36.0) L Red Cell Distribution Width 17.8 % (11.6-14.8) H Platelet Count 174 K/UL (150-450) Mean Platelet Volume 6.3 FL (6.5-10.1) L Neutrophils (%) (Auto) % (45.0-75.0) Lymphocytes (%) (Auto) % (20.0-45.0) Monocytes (%) (Auto) % (1.0-10.0) Eosinophils (%) (Auto) % (0.0-3.0) Basophils (%) (Auto) % (0.0-2.0) Neutrophils % (Manual) Pending Lymphocytes % (Manual) Pending Platelet Estimate Pending Platelet Morphology Pending Sodium Level 144 MMOL/L (136-145) Potassium Level 3.9 MMOL/L (3.5-5.1) Chloride Level 103 MMOL/L (98-107) Carbon Dioxide Level 37 MMOL/L (21-32) H Anion Gap 4 mmol/L (5-15) L Blood Urea Nitrogen 30 mg/dL (7-18) H Creatinine 1.1 MG/DL (0.55-1.30) Estimat Glomerular Filtration Rate mL/min (>60) Glucose Level 125 MG/DL (74-106) H Calcium Level 8.3 MG/DL (8.5-10.1) L Magnesium Level 1.6 MG/DL (1.8-2.4) L Total Bilirubin 0.2 MG/DL (0.2-1.0) Aspartate Amino Transf (AST/SGOT) 16 U/L (15-37) Alanine Aminotransferase (ALT/SGPT) 24 U/L (12-78) Alkaline Phosphatase 70 U/L (46-116) Pro-B-Type Natriuretic Peptide 7911 pg/mL (0-125) H Total Protein 6.2 G/DL (6.4-8.2) L Albumin 2.5 G/DL (3.4-5.0) L Globulin 3.7 g/dL Albumin/Globulin Ratio 0.7 (1.0-2.7) L Current Medications Medications (Trade) Dose Ordered Sig/Aimee Route PRN Reason Start Time Stop Time Status Last Admin Dose Admin Acetaminophen (Tylenol) 650 mg Q6H PRN ORAL Mild Pain/Temp > 100.5 10/18/18 04:45 11/17/18 04:44 10/19/18 23:32 Albuterol/ Ipratropium (Albuterol/ Ipratropium) 3 ml Q4HRT HHN 10/18/18 03:00 10/21/18 22:59 10/19/18 23:11 Ceftriaxone Sodium 1 gm/ Dextrose 55 ml @ 110 mls/hr Q24H IVPB 10/18/18 22:00 10/23/18 21:59 10/19/18 21:25 Furosemide (Lasix) 40 mg DAILY IV 10/20/18 09:00 11/19/18 08:59 10/20/18 08:42 Heparin Sodium (Porcine) (Heparin 5000 units/ml) 5,000 units EVERY 12 HOURS SUBQ 10/18/18 21:00 11/17/18 20:59 10/20/18 08:45 Lisinopril (Prinivil) 20 mg DAILY ORAL 10/20/18 09:00 11/19/18 08:59 10/20/18 08:43 Lorazepam (Ativan 2mg/ml 1ml) 1 mg Q6H PRN IM anxiety 10/18/18 06:00 10/24/18 11:59 Magnesium Sulfate 100 ml @ 100 mls/hr Q1H IVPB 10/20/18 09:00 10/20/18 10:59 10/20/18 08:43 Methylprednisolone Sodium Succinate (Solu-MEDROL) 60 mg EVERY 8 HOURS IVP 10/18/18 06:00 11/15/18 21:59 10/20/18 05:18 Mirtazapine (Remeron) 15 mg BEDTIME ORAL 10/18/18 21:00 11/17/18 20:59 10/19/18 21:25 Sodium Chloride 1,000 ml @ 100 mls/hr Q10H IV 10/18/18 00:30 11/15/18 18:29 10/20/18 02:31 Jessy Zabala MD Oct 20, 2018 09:15
--- NOTE | 2018-10-20 11:00 | NUR ---
RD ASSESSMENT & RECOMMENDATIONS SEE CARE ACTIVITY FOR COMPLETE ASSESSMENT DAILY ESTIMATED NEEDS: Needs based on Underweight, pulmonary, HIV+, 48kg 30-35 kcals/kg 4989-4890 total kcals 1-2 g protein/kg 48-96 g total protein 25-30 mL/kg 0335-6687 total fluid mLs NUTRITION DIAGNOSIS: 1) Increased kcal and protein needs r/t wasting, HIV and underweight status as evidenced by moderate to severe generalized muscle and fat wasting, BMI 16.6, pt is 72% of [place] Body Weight, HIV+. 2) Altered nutrition related lab values R/T clinical condition as evidenced by elev BNP (7911), critically elev pCO2 (*56.8, trend down). CURRENT DIET:KANG/ regular texture PO DIET RECOMMENDATIONS: LOW NA / texture as tolerated ADDITIONAL RECOMMENDATIONS: * Calibrated bed scale wts weekly * Monitor BG on solumedrol/ need for SSI, carb controlled diet, h/o DM * Check A1C- H/o DM * Add Glucerna BID + snacks BID * Monitor lytes daily, replete as needed- pt on lasix .
--- NOTE | 2018-10-20 11:47 | Consultation ---
History of Present Illness General Date patient seen: Oct 20, 2018 Chief Complaint: Altered Level of Consciousness Present Illness HPI 73 year old male found with altered mental status and transferred to [facility] [place] for evaluation by EMS. Respiratory insufficiency, COPD, currently admitted for medical care and management. On admission noted to have multiple bilateral lower extremity wounds and ulcerations. During admission complaining of abdominal discomfort. Surgery called to evaluate. patient seen, chart reviewed , patient examined. he is awake, responsive, but a poor historian. currently states abdominal discomfort improved. Allergies: Coded Allergies: No Known Allergies (Unverified , 10/17/18) Medication History Scheduled Digoxin* (Lanoxin*), 0.125 MG ORAL DAILY Folic Acid* (Folic Acid*), 1 MG ORAL DAILY, (Reported) Furosemide* (Lasix*), 40 MG ORAL DAILY, (Reported) Methadone Hcl* (Methadone*), 40 MG PO DAILY, (Reported) Methocarbamol* (Robaxin*), 500 MG PO TID Metoprolol Tartrate (Metoprolol Tartrate), 12.5 MG ORAL Q12HR Multivitamin (Multi Vitamin Daily), 1 TAB ORAL DAILY, (Reported) Potassium Chloride (Potassium Chloride), 10 MEQ PO DAILY, (Reported) Sildenafil Citrate (Sildenafil), 20 MG ORAL TID, (Reported) Thiamine Hcl (Thiamine Hcl), 100 MG PO DAILY, (Reported) Scheduled PRN Acetaminophen With Codeine (T#4) (Tylenol #4 Tab*), 1 TAB ORAL Q6H PRN Naproxen (Ec-Naprosyn), 220 MG PO TID PRN for For Pain, (Reported) Tramadol Hcl* (Ultram*), 50 MG ORAL Q6H PRN for For Pain, (Reported) Patient History Limited by: medical condition History Provided By: Medical Record, PMD Healthcare decision maker self Resuscitation status Full Code Advanced Directive on File No Past Medical/Surgical History Past Medical/Surgical History: (1) Hypercapnia (2) Opiate dependence, continuous (3) CHF (congestive heart failure) (4) Atrial flutter (5) Diabetes mellitus (6) Chest wall pain (7) CHF (congestive heart failure) (8) CHF (congestive heart failure) (9) Hyperglycemia (10) Tachycardia (11) Abdominal pain (12) Fall (13) HTN (hypertension) (14) Heroin abuse (15) COPD exacerbation (16) Intractable abdominal pain (17) COPD (chronic obstructive pulmonary disease) (18) Respiratory distress (19) Altered level of consciousness (20) Venous stasis ulcer (21) toxinc encephalopathy acute Review of Systems All Other Systems: negative except mentioned in HPI Physical Exam General Appearance: no apparent distress, alert Lines, tubes and drains: peripheral HEENT: mucous membranes moist Neck: normal inspection Respiratory/Chest: no respiratory distress, decreased breath sounds Cardiovascular/Chest: regular rhythm Abdomen: soft, no organomegaly, no mass Extremities: other Skin Exam: other Neurologic: alert Last 24 Hour Vital Signs Date Time Temp Pulse Resp B/P (MAP) Pulse Ox O2 Delivery O2 Flow Rate FiO2 10/20/18 10:45 Nasal Cannula 3.0 32 10/20/18 10:45 Nasal Cannula 3.0 32 10/20/18 09:00 Nasal Cannula 2.0 10/20/18 08:43 174/70 10/20/18 08:00 98.4 104 20 174/70 (104) 95 10/20/18 08:00 100 10/20/18 07:08 Nasal Cannula 3.0 32 10/20/18 07:08 Nasal Cannula 3.0 32 10/20/18 07:08 Nasal Cannula 3.0 32 10/20/18 07:08 99 Nasal Cannula 3.0 32 10/20/18 04:00 98.1 85 24 142/86 (104) 95 10/20/18 04:00 Nasal Cannula 2.0 10/20/18 03:48 91 10/20/18 03:32 Nasal Cannula 10/20/18 03:31 Nasal Cannula 10/20/18 00:00 Nasal Cannula 2.0 10/20/18 00:00 98.1 105 20 126/79 (95) 95 10/19/18 23:49 104 10/19/18 23:21 92 22 96 Nasal Cannula 3.0 32 10/19/18 23:11 86 22 93 Nasal Cannula 3.0 32 10/19/18 20:00 97.4 100 24 130/77 (94) 94 10/19/18 20:00 Nasal Cannula 2.0 10/19/18 19:09 90 Nasal Cannula 2.0 28 10/19/18 19:09 Nasal Cannula 2.0 28 10/19/18 19:08 86 20 94 Nasal Cannula 3.0 32 10/19/18 19:05 84 24 90 Nasal Cannula 2.0 28 10/19/18 19:01 109 10/19/18 16:38 98.1 83 22 132/76 (94) 92 10/19/18 16:00 100 10/19/18 16:00 Nasal Cannula 2.0 10/19/18 15:00 Nasal Cannula 2.0 28 10/19/18 15:00 Nasal Cannula 2.0 28 10/19/18 12:00 98.0 109 23 146/87 (106) 95 10/19/18 12:00 Nasal Cannula 2.0 10/19/18 12:00 83 Intake and Output 10/19/18 10/20/18 18:59 06:59 Intake Total 850 ml 2123.333 ml Output Total 900 ml 2000 ml Balance -50 ml 123.333 ml Intake Oral 850 ml 720 ml IV Total 1403.333 ml Output Urine Total 900 ml 2000 ml Laboratory Tests Test 10/20/18 05:30 White Blood Count 11.2 K/UL (4.8-10.8) H Red Blood Count 3.77 M/UL (4.70-6.10) L Hemoglobin 10.2 G/DL (14.2-18.0) L Hematocrit 33.6 % (42.0-52.0) L Mean Corpuscular Volume 89 FL (80-99) Mean Corpuscular Hemoglobin 27.0 PG (27.0-31.0) Mean Corpuscular Hemoglobin Concent 30.3 G/DL (32.0-36.0) L Red Cell Distribution Width 17.8 % (11.6-14.8) H Platelet Count 174 K/UL (150-450) Mean Platelet Volume 6.3 FL (6.5-10.1) L Neutrophils (%) (Auto) % (45.0-75.0) Lymphocytes (%) (Auto) % (20.0-45.0) Monocytes (%) (Auto) % (1.0-10.0) Eosinophils (%) (Auto) % (0.0-3.0) Basophils (%) (Auto) % (0.0-2.0) Differential Total Cells Counted 100 Neutrophils % (Manual) 93 % (45-75) H Lymphocytes % (Manual) 2 % (20-45) L Monocytes % (Manual) 2 % (1-10) Eosinophils % (Manual) 0 % (0-3) Basophils % (Manual) 0 % (0-2) Band Neutrophils 3 % (0-8) Platelet Estimate Adequate Platelet Morphology Normal Hypochromasia 1+ Anisocytosis 1+ Ovalocytes 1+ Schistocytes 1+ Sodium Level 144 MMOL/L (136-145) Potassium Level 3.9 MMOL/L (3.5-5.1) Chloride Level 103 MMOL/L (98-107) Carbon Dioxide Level 37 MMOL/L (21-32) H Anion Gap 4 mmol/L (5-15) L Blood Urea Nitrogen 30 mg/dL (7-18) H Creatinine 1.1 MG/DL (0.55-1.30) Estimat Glomerular Filtration Rate mL/min (>60) Glucose Level 125 MG/DL (74-106) H Calcium Level 8.3 MG/DL (8.5-10.1) L Magnesium Level 1.6 MG/DL (1.8-2.4) L Total Bilirubin 0.2 MG/DL (0.2-1.0) Aspartate Amino Transf (AST/SGOT) 16 U/L (15-37) Alanine Aminotransferase (ALT/SGPT) 24 U/L (12-78) Alkaline Phosphatase 70 U/L (46-116) Pro-B-Type Natriuretic Peptide 7911 pg/mL (0-125) H Total Protein 6.2 G/DL (6.4-8.2) L Albumin 2.5 G/DL (3.4-5.0) L Globulin 3.7 g/dL Albumin/Globulin Ratio 0.7 (1.0-2.7) L Height (Feet): 5 Height (Inches): 7.00 Weight (Pounds): 106 Medications Current Medications Medications (Trade) Dose Ordered Sig/Aimee Route PRN Reason Start Time Stop Time Status Last Admin Dose Admin Acetaminophen (Tylenol) 650 mg Q6H PRN ORAL Mild Pain/Temp > 100.5 10/18/18 04:45 11/17/18 04:44 10/19/18 23:32 Albuterol/ Ipratropium (Albuterol/ Ipratropium) 3 ml Q4HRT HHN 10/18/18 03:00 10/21/18 22:59 10/19/18 23:11 Ceftriaxone Sodium 1 gm/ Dextrose 55 ml @ 110 mls/hr Q24H IVPB 10/18/18 22:00 10/23/18 21:59 10/19/18 21:25 Furosemide (Lasix) 40 mg DAILY IV 10/20/18 09:00 11/19/18 08:59 10/20/18 08:42 Heparin Sodium (Porcine) (Heparin 5000 units/ml) 5,000 units EVERY 12 HOURS SUBQ 10/18/18 21:00 11/17/18 20:59 10/20/18 08:45 Lisinopril (Prinivil) 20 mg DAILY ORAL 10/20/18 09:00 11/19/18 08:59 10/20/18 08:43 Lorazepam (Ativan 2mg/ml 1ml) 1 mg Q6H PRN IM anxiety 10/18/18 06:00 10/24/18 11:59 Methylprednisolone Sodium Succinate (Solu-MEDROL) 60 mg EVERY 8 HOURS IVP 10/18/18 06:00 11/15/18 21:59 10/20/18 05:18 Mirtazapine (Remeron) 15 mg BEDTIME ORAL 10/18/18 21:00 11/17/18 20:59 10/19/18 21:25 Sodium Chloride 1,000 ml @ 100 mls/hr Q10H IV 10/18/18 00:30 11/15/18 18:29 10/20/18 02:31 Assessment/Plan Problem List: (1) Abdominal pain Assessment & Plan: states improved. tolerating diet. passing flatus abdominal exam benign lft's okay leukocytosis likely from steroids will monitor clinically for now. ICD Codes: R10.9 - Unspecified abdominal pain SNOMED: 67321753 (2) Venous stasis ulcer Assessment & Plan: Patient presents with multiple linear chronic wounds to his lower extremities and some areas of ulcerations. wounds seem in different stages of healing and most traumatic in nature some likely lower extremity venous stasis ulcer no active bleeding. no signs of active infection. no cellulitis. no edema. minimal tenderness poor hygiene Tx Plan: wash right and left left/feet daily with skin wipes apply hyrogel and skin protectant to legs daily place abd and wrap with kerlix daily thank you ICD Codes: I83.009 - Varicose veins of unsp lower extremity w ulcer of unsp site SNOMED: 891224149 JoyaJarred Oct 20, 2018 11:47
--- NOTE | 2018-10-20 13:36 | Pulmonology Progress Note ---
Assessment/Plan Assessment/Plan 1. Acute respiratory failure with hypercapnia. 2. HIV. 3. COPD. 4. CHF. DISCUSSION: Continue nocturnal BiPAP ABG improved; Continue diuresis, antibiotics, pulmonary hygiene and IV steroids. I will continue to follow carefully. Discussed with nursing staff. Subjective Interval Events: None new Constitutional: Reports: no symptoms HEENT: Repors: no symptoms Respiratory: Reports: no symptoms Cardiovascular: Reports: no symptoms Gastrointestinal/Abdominal: Reports: no symptoms Genitourinary: Reports: no symptoms Allergies: Coded Allergies: No Known Allergies (Unverified , 10/17/18) Objective Last 24 Hour Vital Signs Date Time Temp Pulse Resp B/P (MAP) Pulse Ox O2 Delivery O2 Flow Rate FiO2 10/20/18 13:11 98.0 87 20 126/75 (92) 95 10/20/18 12:00 87 10/20/18 12:00 98.4 87 20 126/70 (88) 95 10/20/18 10:45 Nasal Cannula 3.0 32 10/20/18 10:45 Nasal Cannula 3.0 32 10/20/18 09:00 Nasal Cannula 2.0 10/20/18 08:43 174/70 10/20/18 08:00 98.4 104 20 174/70 (104) 95 10/20/18 08:00 100 10/20/18 07:08 Nasal Cannula 3.0 32 10/20/18 07:08 Nasal Cannula 3.0 32 10/20/18 07:08 Nasal Cannula 3.0 32 10/20/18 07:08 99 Nasal Cannula 3.0 32 10/20/18 04:00 98.1 85 24 142/86 (104) 95 10/20/18 04:00 Nasal Cannula 2.0 10/20/18 03:48 91 10/20/18 03:32 Nasal Cannula 10/20/18 03:31 Nasal Cannula 10/20/18 00:00 Nasal Cannula 2.0 10/20/18 00:00 98.1 105 20 126/79 (95) 95 10/19/18 23:49 104 10/19/18 23:21 92 22 96 Nasal Cannula 3.0 32 10/19/18 23:11 86 22 93 Nasal Cannula 3.0 32 10/19/18 20:00 97.4 100 24 130/77 (94) 94 10/19/18 20:00 Nasal Cannula 2.0 10/19/18 19:09 90 Nasal Cannula 2.0 28 10/19/18 19:09 Nasal Cannula 2.0 28 10/19/18 19:08 86 20 94 Nasal Cannula 3.0 32 10/19/18 19:05 84 24 90 Nasal Cannula 2.0 28 10/19/18 19:01 109 10/19/18 16:38 98.1 83 22 132/76 (94) 92 10/19/18 16:00 100 10/19/18 16:00 Nasal Cannula 2.0 10/19/18 15:00 Nasal Cannula 2.0 28 10/19/18 15:00 Nasal Cannula 2.0 28 Intake and Output 10/19/18 10/20/18 18:59 06:59 Intake Total 850 ml 2123.333 ml Output Total 900 ml 2000 ml Balance -50 ml 123.333 ml Intake Oral 850 ml 720 ml IV Total 1403.333 ml Output Urine Total 900 ml 2000 ml General Appearance: no acute distress HEENT: normocephalic Respiratory/Chest: chest wall non-tender, lungs clear Cardiovascular: normal peripheral pulses, normal rate Abdomen: soft, non tender Microbiology Date/Time Source Procedure Growth Status 10/17/18 19:31 Sputum Gram Stain - Final Complete 10/17/18 19:31 Sputum Sputum Culture - Final NORMAL UPPER RESPIRATORY STAN PRESENT Complete Laboratory Tests 10/20/18 05:30: White Blood Count 11.2H, Red Blood Count 3.77L, Hemoglobin 10.2L, Hematocrit 33.6L, Mean Corpuscular Volume 89, Mean Corpuscular Hemoglobin 27.0, Mean Corpuscular Hemoglobin Concent 30.3L, Red Cell Distribution Width 17.8H, Platelet Count 174, Mean Platelet Volume 6.3L, Neutrophils (%) (Auto) , Lymphocytes (%) (Auto) , Monocytes (%) (Auto) , Eosinophils (%) (Auto) , Basophils (%) (Auto) , Differential Total Cells Counted 100, Neutrophils % ( Manual) 93H, Lymphocytes % (Manual) 2L, Monocytes % (Manual) 2, Eosinophils % ( Manual) 0, Basophils % (Manual) 0, Band Neutrophils 3, Platelet Estimate Adequate, Platelet Morphology Normal, Hypochromasia 1+, Anisocytosis 1+, Ovalocytes 1+, Schistocytes 1+, Sodium Level 144, Potassium Level 3.9, Chloride Level 103, Carbon Dioxide Level 37H, Anion Gap 4L, Blood Urea Nitrogen 30H, Creatinine 1.1, Estimat Glomerular Filtration Rate , Glucose Level 125H, Calcium Level 8.3L, Magnesium Level 1.6L, Total Bilirubin 0.2, Aspartate Amino Transf (AST/SGOT) 16, Alanine Aminotransferase (ALT/SGPT) 24, Alkaline Phosphatase 70, Pro-B-Type Natriuretic Peptide 7911H, Total Protein 6.2L, Albumin 2.5L, Globulin 3.7, Albumin/Globulin Ratio 0.7L Current Medications Medications (Trade) Dose Ordered Sig/Aimee Route PRN Reason Start Time Stop Time Status Last Admin Dose Admin Acetaminophen (Tylenol) 650 mg Q6H PRN ORAL Mild Pain/Temp > 100.5 10/18/18 04:45 11/17/18 04:44 10/19/18 23:32 Albuterol/ Ipratropium (Albuterol/ Ipratropium) 3 ml Q4HRT HHN 10/18/18 03:00 10/21/18 22:59 10/19/18 23:11 Ceftriaxone Sodium 1 gm/ Dextrose 55 ml @ 110 mls/hr Q24H IVPB 10/18/18 22:00 10/23/18 21:59 10/19/18 21:25 Furosemide (Lasix) 40 mg DAILY IV 10/20/18 09:00 11/19/18 08:59 10/20/18 08:42 Heparin Sodium (Porcine) (Heparin 5000 units/ml) 5,000 units EVERY 12 HOURS SUBQ 10/18/18 21:00 11/17/18 20:59 10/20/18 08:45 Lisinopril (Prinivil) 20 mg DAILY ORAL 10/20/18 09:00 11/19/18 08:59 10/20/18 08:43 Lorazepam (Ativan 2mg/ml 1ml) 1 mg Q6H PRN IM anxiety 10/18/18 06:00 10/24/18 11:59 Methylprednisolone Sodium Succinate (Solu-MEDROL) 60 mg EVERY 8 HOURS IVP 10/18/18 06:00 11/15/18 21:59 10/20/18 05:18 Mirtazapine (Remeron) 15 mg BEDTIME ORAL 10/18/18 21:00 3/15/19 20:59 10/19/18 21:25 Sodium Chloride 1,000 ml @ 100 mls/hr Q10H IV 10/18/18 00:30 11/15/18 18:29 10/20/18 02:31 Abhijit Morris MD Oct 20, 2018 13:36
--- NOTE | 2018-10-20 15:00 | NUR ---
NURSE NOTES SEEN BY SHANI WITH NEW ORDERS,NOTED AND CARRIED OUT.IVF OF NS DC'D.KDUR 40 MEQ GIVEN ORALLY,WELL TOLERATED.
--- NOTE | 2018-10-20 16:00 | NUR ---
HAND-OFF: Report given to ANN Carter,patient in stable condition.
--- NOTE | 2018-10-20 16:45 | NUR ---
NURSE NOTES: Received patient from ANN Bermudez. Patient is resting comfortably in bed, showing no signs and symptoms of pain and/or distress. Bed on lowest position with bed alarm activated. Will continue plan of care.
--- NOTE | 2018-10-20 17:12 | NUR ---
*-* INSURANCE *-* UPDATED CLINICALS HAVE BEEN FAXED TO: [facility] GELY: YOGESH PLEASE FAX THE REVIEW/CLINICAL P- [phone] F- [phone]
--- NOTE | 2018-10-20 20:34 | General Progress Note ---
Assessment/Plan Problem List: (1) toxinc encephalopathy acute (2) Heroin abuse ICD Codes: F11.10 - Heroin abuse SNOMED: 134835856 (3) Opiate dependence, continuous ICD Codes: F11.20 - Opioid dependence, uncomplicated SNOMED: 719644576 Status: stable Assessment/Plan Ativan prn clonidine prn remeron 15mg po qhs Subjective Neurologic/Psychiatric: Reports: anxiety, depressed Allergies: Coded Allergies: No Known Allergies (Unverified , 10/17/18) Subjective the pt stated that he had muscle pain and is tired. no agitation Objective Last 24 Hour Vital Signs Date Time Temp Pulse Resp B/P (MAP) Pulse Ox O2 Delivery O2 Flow Rate FiO2 10/20/18 20:00 Nasal Cannula 2.0 10/20/18 17:00 Nasal Cannula 2.0 10/20/18 16:00 97.4 96 20 129/76 (93) 95 10/20/18 15:17 89 10/20/18 15:05 71 20 97 Nasal Cannula 2.0 28 10/20/18 15:00 78 22 93 Nasal Cannula 2.0 28 10/20/18 13:11 98.0 87 20 126/75 (92) 95 10/20/18 12:00 87 10/20/18 12:00 Nasal Cannula 2.0 10/20/18 12:00 98.4 87 20 126/70 (88) 95 10/20/18 10:45 Nasal Cannula 3.0 32 10/20/18 10:45 Nasal Cannula 3.0 32 10/20/18 09:00 Nasal Cannula 2.0 10/20/18 08:43 174/70 10/20/18 08:00 98.4 104 20 174/70 (104) 95 10/20/18 08:00 100 10/20/18 07:08 Nasal Cannula 3.0 32 10/20/18 07:08 Nasal Cannula 3.0 32 10/20/18 07:08 Nasal Cannula 3.0 32 10/20/18 07:08 99 Nasal Cannula 3.0 32 10/20/18 04:00 98.1 85 24 142/86 (104) 95 10/20/18 04:00 Nasal Cannula 2.0 10/20/18 03:48 91 10/20/18 03:32 Nasal Cannula 10/20/18 03:31 Nasal Cannula 10/20/18 00:00 Nasal Cannula 2.0 10/20/18 00:00 98.1 105 20 126/79 (95) 95 10/19/18 23:49 104 10/19/18 23:21 92 22 96 Nasal Cannula 3.0 32 10/19/18 23:11 86 22 93 Nasal Cannula 3.0 32 Intake and Output 10/19/18 10/20/18 19:00 07:00 Intake Total 1100 ml 1973.333 ml Output Total 900 ml 2000 ml Balance 200 ml -26.667 ml Intake Oral 850 ml 720 ml IV Total 250 ml 1253.333 ml Output Urine Total 900 ml 2000 ml Laboratory Tests 10/20/18 05:30: White Blood Count 11.2H, Red Blood Count 3.77L, Hemoglobin 10.2L, Hematocrit 33.6L, Mean Corpuscular Volume 89, Mean Corpuscular Hemoglobin 27.0, Mean Corpuscular Hemoglobin Concent 30.3L, Red Cell Distribution Width 17.8H, Platelet Count 174, Mean Platelet Volume 6.3L, Neutrophils (%) (Auto) , Lymphocytes (%) (Auto) , Monocytes (%) (Auto) , Eosinophils (%) (Auto) , Basophils (%) (Auto) , Differential Total Cells Counted 100, Neutrophils % ( Manual) 93H, Lymphocytes % (Manual) 2L, Monocytes % (Manual) 2, Eosinophils % ( Manual) 0, Basophils % (Manual) 0, Band Neutrophils 3, Platelet Estimate Adequate, Platelet Morphology Normal, Hypochromasia 1+, Anisocytosis 1+, Ovalocytes 1+, Schistocytes 1+, Sodium Level 144, Potassium Level 3.9, Chloride Level 103, Carbon Dioxide Level 37H, Anion Gap 4L, Blood Urea Nitrogen 30H, Creatinine 1.1, Estimat Glomerular Filtration Rate , Glucose Level 125H, Calcium Level 8.3L, Magnesium Level 1.6L, Total Bilirubin 0.2, Aspartate Amino Transf (AST/SGOT) 16, Alanine Aminotransferase (ALT/SGPT) 24, Alkaline Phosphatase 70, Pro-B-Type Natriuretic Peptide 7911H, Total Protein 6.2L, Albumin 2.5L, Globulin 3.7, Albumin/Globulin Ratio 0.7L Height (Feet): 5 Height (Inches): 7.00 Weight (Pounds): 106 General Appearance: alert, thin Farhadi,Pantea MD Oct 20, 2018 20:34
[2018-10-20] MEDS: cefTRIAXone 1 GM in D5W 55 ML IVPB SCH (21:18)
[2018-10-21] VITALS: BP 128/78
--- NOTE | 2018-10-21 02:30 | Progress Note ---
DATE: 10/20/2018 SUBJECTIVE: The patient remains with some shortness of breath and congestion. OBJECTIVE: VITAL SIGNS: Blood pressure 126/75, pulse 87, respirations 20. Monitor is sinus with frequent atrial and ventricular ectopics. LUNGS: Diminished breath sounds. Few rhonchi. HEART: Regular rhythm and rate. Normal S1 and S2. ABDOMEN: Soft. NT/ND. EXTR: No edema. Stasis derm changes with some ulcers and diminished distal pulses. As noted yesterday, HIV was negative. IMPRESSION: Pneumonia, chronic obstructive pulmonary disease exacerbation, peripheral artery disease, stasis ulcers, acute on chronic diastolic congestive heart failure, type 2 diabetes mellitus, diabetic neuropathy, history of heroin abuse, anemia of chronic disease. PLAN: 1. Steroids. 2. Inhaled bronchodilators. 3. Antibiotics per Infectious Disease managed services sales consultant. 4. Diuresis effort. 5. Intravenous fluids until oral intake has improved. 6. Replace electrolytes as needed. 7. DVT and stress ulcer prophylaxis. 8. Skin care. Justus Grewal M.D. DR: MINOR JOB#: [id number] CC: RICHARD
[2018-10-21] MEDS: Albuterol/Ipratropium 3ml neb HHN SCH ×5 (03:08→19:11)
--- NOTE | 2018-10-21 04:29 | NUR ---
NURSE NOTES: Patient refuses 0400 vital signs and bed bath. Will monitor and continue care.
[2018-10-21] MEDS: Solu-MEDROL 125mg Inj IVP SCH ×3 (05:29→21:28)
--- NOTE | 2018-10-21 07:28 | NUR ---
HAND-OFF: Report given to ANN LAUREN.
--- NOTE | 2018-10-21 07:29 | NUR ---
NURSE NOTES: Received patient from ANN Rushing. Patient in bed and asleep. On 4L NC. groundwater monitoring technician in placed. Urinal at bedside. IV site asymptomatic. Bed in lowest position with side rails up. Will continue to follow plan of care.
--- NOTE | 2018-10-21 07:59 | General Progress Note ---
Assessment/Plan Problem List: (1) Hypercapnia ICD Codes: R06.89 - Other abnormalities of breathing SNOMED: 30462854 (2) Opiate dependence, continuous ICD Codes: F11.20 - Opioid dependence, uncomplicated SNOMED: 458364719 (3) CHF (congestive heart failure) ICD Codes: I50.9 - CHF (congestive heart failure) SNOMED: 73176798 Qualifiers: Qualified Codes: I50.9 - Heart failure, unspecified (4) Atrial flutter ICD Codes: I48.92 - Unspecified atrial flutter SNOMED: 6014375 (5) Diabetes mellitus ICD Codes: E11.9 - Type 2 diabetes mellitus without complications SNOMED: 91758951 (6) COPD exacerbation ICD Codes: J44.1 - Chronic obstructive pulmonary disease with (acute) exacerbation SNOMED: 332162793, 232372685 (7) toxinc encephalopathy acute Status: stable, progressing Assessment/Plan cont current rx follow up abx steroids- wean per pulm diuresis resp rx abx dvt/stress ulcer prophylaxis compliance stressed Subjective ROS Limited/Unobtainable: No Constitutional: Reports: malaise, weakness HEENT: Reports: no symptoms Cardiovascular: Reports: no symptoms Respiratory: Reports: cough, shortness of breath Gastrointestinal/Abdominal: Reports: no symptoms Genitourinary: Reports: no symptoms Neurologic/Psychiatric: Reports: no symptoms Endocrine: Reports: no symptoms Hematologic/Lymphatic: Reports: no symptoms Allergies: Coded Allergies: No Known Allergies (Unverified , 10/17/18) All Systems: reviewed and negative except above Subjective no events. resting. refusing bipap. denies cp/sob. decreased o2 requirements. now on 2l NC Objective Last 24 Hour Vital Signs Date Time Temp Pulse Resp B/P (MAP) Pulse Ox O2 Delivery O2 Flow Rate FiO2 10/21/18 04:00 Nasal Cannula 2.0 10/21/18 03:42 119 10/21/18 03:18 78 18 93 Nasal Cannula 2.0 28 10/21/18 03:08 72 18 91 Nasal Cannula 2.0 28 10/21/18 00:01 82 18 94 Nasal Cannula 2.0 28 10/21/18 00:00 98.1 78 16 128/78 (95) 24 10/21/18 00:00 Nasal Cannula 2.0 10/20/18 23:44 84 18 95 Nasal Cannula 2.0 28 10/20/18 23:34 81 18 94 Nasal Cannula 2.0 28 10/20/18 23:30 112 10/20/18 20:54 78 18 93 Nasal Cannula 2.0 28 10/20/18 20:44 93 Nasal Cannula 2.0 28 10/20/18 20:44 Nasal Cannula 2.0 28 10/20/18 20:40 76 18 92 Nasal Cannula 2.0 28 10/20/18 20:00 99.1 95 16 129/70 (89) 92 10/20/18 20:00 Nasal Cannula 2.0 10/20/18 19:03 100 10/20/18 17:00 Nasal Cannula 2.0 10/20/18 16:00 97.4 96 20 129/76 (93) 95 10/20/18 15:17 89 10/20/18 15:05 71 20 97 Nasal Cannula 2.0 28 10/20/18 15:00 78 22 93 Nasal Cannula 2.0 28 10/20/18 13:11 98.0 87 20 126/75 (92) 95 10/20/18 12:00 87 10/20/18 12:00 Nasal Cannula 2.0 10/20/18 12:00 98.4 87 20 126/70 (88) 95 10/20/18 10:45 Nasal Cannula 3.0 32 10/20/18 10:45 Nasal Cannula 3.0 32 10/20/18 09:00 Nasal Cannula 2.0 10/20/18 08:43 174/70 10/20/18 08:00 98.4 104 20 174/70 (104) 95 10/20/18 08:00 100 Intake and Output 10/20/18 10/21/18 19:00 07:00 Intake Total 1935 ml 555 ml Output Total 2000 ml 550 ml Balance -65 ml 5 ml Intake Oral 1160 ml 500 ml IV Total 775 ml 55 ml Output Urine Total 2000 ml 550 ml # Voids 5 5 # Bowel Movements 1 Height (Feet): 5 Height (Inches): 7.00 Weight (Pounds): 107 Objective General Appearance: WD/WN, thin Neck: supple Cardiovascular: normal rate, regular rhythm Respiratory/Chest: chest wall non-tender, lungs clear, normal breath sounds, no respiratory distress Abdomen: normal bowel sounds, non tender, soft, no organomegaly Edema: no edema noted Arm (L), no edema noted Arm (R), no edema noted Leg (L), no edema noted Leg (R), no edema noted Pedal (L), no edema noted Pedal (R), no edema noted Generalized Varun Stewart MD Oct 21, 2018 07:59
[2018-10-21 08:00] VITALS: BP 133/80
[2018-10-21] MEDS: Lisinopril 20mg tab ORAL SCH (08:44)
[2018-10-21] MEDS: Heparin 5000 units/ml inj SUBQ SCH ×2 (08:45→21:29)
--- NOTE | 2018-10-21 10:42 | NUR ---
CASE MANAGEMENT: REVIEW 10/21/2018 SI:RESPIRATORY DISTRESS. COPD EXACERBATION. T 97 HR 112 RR 24 B/P 133/80 SATS 91% ON 4L/NC NO LABS TODAY IS: IVF @ 100 mL/HR SOLU MEDROL IV Q8H LASIX IV Q12H CEFTRIAXONE IV Q24H ALBUTEROL Q4H HHN JAVIER STATUS DCP: PATIENT TO BE DISCHARGED TO HOME ONCE MEDICALLY CLEARED PLAN OF CARE: CONTINUE IV ANTIBx CONTINUE CURRENT MANAGEMENT
--- NOTE | 2018-10-21 10:51 | Pulmonology Progress Note ---
Assessment/Plan Assessment/Plan 1. Acute respiratory failure with hypercapnia. 2. HIV. 3. COPD. 4. CHF. DISCUSSION: Continue nocturnal BiPAP ABG improved; Continue diuresis, antibiotics, pulmonary hygiene and steroids. I will continue to follow carefully. Discussed with nursing staff. Subjective Interval Events: None new Constitutional: Reports: no symptoms HEENT: Repors: no symptoms Respiratory: Reports: no symptoms Cardiovascular: Reports: no symptoms Gastrointestinal/Abdominal: Reports: no symptoms Genitourinary: Reports: no symptoms Allergies: Coded Allergies: No Known Allergies (Unverified , 10/17/18) Objective Last 24 Hour Vital Signs Date Time Temp Pulse Resp B/P (MAP) Pulse Ox O2 Delivery O2 Flow Rate FiO2 10/21/18 08:44 133/80 10/21/18 08:19 77 18 94 Nasal Cannula 3.0 32 10/21/18 08:11 Nasal Cannula 3.0 32 10/21/18 08:11 91 Nasal Cannula 3.0 32 10/21/18 08:09 91 20 91 Nasal Cannula 3.0 32 10/21/18 08:00 97.0 112 24 133/80 (97) 91 10/21/18 08:00 Nasal Cannula 4.0 10/21/18 07:59 127 10/21/18 04:00 Nasal Cannula 2.0 10/21/18 03:42 119 10/21/18 03:18 78 18 93 Nasal Cannula 2.0 28 10/21/18 03:08 72 18 91 Nasal Cannula 2.0 28 10/21/18 00:00 98.1 78 16 128/78 (95) 24 10/21/18 00:00 Nasal Cannula 2.0 10/20/18 23:44 84 18 95 Nasal Cannula 2.0 28 10/20/18 23:34 81 18 94 Nasal Cannula 2.0 28 10/20/18 23:30 112 10/20/18 20:54 78 18 93 Nasal Cannula 2.0 28 10/20/18 20:44 93 Nasal Cannula 2.0 28 10/20/18 20:44 Nasal Cannula 2.0 28 10/20/18 20:40 76 18 92 Nasal Cannula 2.0 28 10/20/18 20:00 99.1 95 16 129/70 (89) 92 10/20/18 20:00 Nasal Cannula 2.0 10/20/18 19:03 100 10/20/18 17:00 Nasal Cannula 2.0 10/20/18 16:00 97.4 96 20 129/76 (93) 95 10/20/18 15:17 89 10/20/18 15:05 71 20 97 Nasal Cannula 2.0 28 10/20/18 15:00 78 22 93 Nasal Cannula 2.0 28 10/20/18 13:11 98.0 87 20 126/75 (92) 95 10/20/18 12:00 87 10/20/18 12:00 Nasal Cannula 2.0 10/20/18 12:00 98.4 87 20 126/70 (88) 95 Intake and Output 10/20/18 10/21/18 19:00 07:00 Intake Total 1935 ml 555 ml Output Total 2000 ml 550 ml Balance -65 ml 5 ml Intake Oral 1160 ml 500 ml IV Total 775 ml 55 ml Output Urine Total 2000 ml 550 ml # Voids 5 5 # Bowel Movements 1 General Appearance: no acute distress HEENT: normocephalic Respiratory/Chest: chest wall non-tender, lungs clear Cardiovascular: normal peripheral pulses, normal rate Current Medications Medications (Trade) Dose Ordered Sig/Aimee Route PRN Reason Start Time Stop Time Status Last Admin Dose Admin Acetaminophen (Tylenol) 650 mg Q6H PRN ORAL Mild Pain/Temp > 100.5 10/18/18 04:45 11/17/18 04:44 10/20/18 22:19 Acetazolamide (Diamox) 250 mg TWICE A DAY ORAL 10/20/18 18:00 11/19/18 17:59 10/21/18 08:44 Albuterol/ Ipratropium (Albuterol/ Ipratropium) 3 ml Q4HRT HHN 10/18/18 03:00 10/21/18 22:59 10/21/18 08:09 Ceftriaxone Sodium 1 gm/ Dextrose 55 ml @ 110 mls/hr Q24H IVPB 10/18/18 22:00 10/23/18 21:59 10/20/18 21:18 Furosemide (Lasix) 40 mg DAILY IV 10/20/18 09:00 11/19/18 08:59 10/21/18 08:44 Heparin Sodium (Porcine) (Heparin 5000 units/ml) 5,000 units EVERY 12 HOURS SUBQ 10/18/18 21:00 11/17/18 20:59 10/21/18 08:45 Lisinopril (Prinivil) 20 mg DAILY ORAL 10/20/18 09:00 11/19/18 08:59 10/21/18 08:44 Lorazepam (Ativan 2mg/ml 1ml) 1 mg Q6H PRN IM anxiety 10/18/18 06:00 10/24/18 11:59 10/21/18 03:48 Methylprednisolone Sodium Succinate (Solu-MEDROL) 60 mg EVERY 8 HOURS IVP 10/18/18 06:00 11/15/18 21:59 10/21/18 05:29 Mirtazapine (Remeron) 15 mg BEDTIME ORAL 10/18/18 21:00 11/17/18 20:59 10/20/18 21:18 Abhijit Morris MD Oct 21, 2018 10:51
[2018-10-21 12:00] VITALS: BP 138/81
--- NOTE | 2018-10-21 13:18 | NUR ---
NURSE NOTES: Called Dr. Grewal and left a message about patient's episode of paroxymal afib and and heart rhythm of AF with RVR. Awaiting for call back.
--- NOTE | 2018-10-21 13:50 | NUR ---
NURSE NOTES: Spoke to Dr. Grewal for the episode of Afib with RVR with HR 176 and result of 12 lead EKG. Received an order for Stat ABG. Order carried out.
[2018-10-21] MEDS: dilTIAZem HCl 30mg tab ORAL SCH ×3 (14:36→23:43)
--- NOTE | 2018-10-21 14:55 | NUR ---
NURSE NOTES: Made Dr. Grewal aware of latest ABG results and patient is now back on bipap.
[2018-10-21 16:00] VITALS: BP 133/80
--- NOTE | 2018-10-21 16:06 | Surgery Progress Note ---
Surgery Progress Note Subjective Additional Comments no acute events. exam unchanged. Objective Last 24 Hour Vital Signs Date Time Temp Pulse Resp B/P (MAP) Pulse Ox O2 Delivery O2 Flow Rate FiO2 10/21/18 15:44 88 20 Bi-pap 50 10/21/18 15:04 90 19 98 Bi-pap 50 10/21/18 15:02 85 23 98 Facial 50 10/21/18 14:57 84 22 96 Nasal Cannula 3.0 32 10/21/18 14:55 Bi-pap 10/21/18 14:55 50 10/21/18 14:36 134 153/82 10/21/18 12:03 111 10/21/18 12:00 98.8 109 25 138/81 (100) 93 10/21/18 12:00 Nasal Cannula 4.0 10/21/18 11:37 Nasal Cannula 10/21/18 11:36 Nasal Cannula 10/21/18 08:44 133/80 10/21/18 08:19 77 18 94 Nasal Cannula 3.0 32 10/21/18 08:11 Nasal Cannula 3.0 32 10/21/18 08:11 91 Nasal Cannula 3.0 32 10/21/18 08:09 91 20 91 Nasal Cannula 3.0 32 10/21/18 08:00 97.0 112 24 133/80 (97) 91 10/21/18 08:00 Nasal Cannula 4.0 10/21/18 07:59 127 10/21/18 04:00 Nasal Cannula 2.0 10/21/18 03:42 119 10/21/18 03:18 78 18 93 Nasal Cannula 2.0 28 10/21/18 03:08 72 18 91 Nasal Cannula 2.0 28 10/21/18 00:00 98.1 78 16 128/78 (95) 24 10/21/18 00:00 Nasal Cannula 2.0 10/20/18 23:44 84 18 95 Nasal Cannula 2.0 28 10/20/18 23:34 81 18 94 Nasal Cannula 2.0 28 10/20/18 23:30 112 10/20/18 20:54 78 18 93 Nasal Cannula 2.0 28 10/20/18 20:44 93 Nasal Cannula 2.0 28 10/20/18 20:44 Nasal Cannula 2.0 28 10/20/18 20:40 76 18 92 Nasal Cannula 2.0 28 10/20/18 20:00 99.1 95 16 129/70 (89) 92 10/20/18 20:00 Nasal Cannula 2.0 10/20/18 19:03 100 10/20/18 17:00 Nasal Cannula 2.0 I&O Intake and Output 10/20/18 10/21/18 18:59 06:59 Intake Total 2035 ml 555 ml Output Total 2000 ml 550 ml Balance 35 ml 5 ml Intake Oral 1160 ml 500 ml IV Total 875 ml 55 ml Output Urine Total 2000 ml 550 ml # Voids 5 5 # Bowel Movements 1 Dressing: other Wound: other Drains: other Cardiovascular: RSR Respiratory: clear Abdomen: soft, non-tender, non-distended Extremities: other Laboratory Tests Test 10/21/18 13:55 Arterial Blood pH 7.378 (7.350-7.450) Arterial Blood Partial Pressure CO2 70.8 mmHg (35.0-45.0) *H Arterial Blood Partial Pressure O2 57.8 mmHg (75.0-100.0) L Arterial Blood HCO3 40.8 mmol/L (22.0-26.0) *H Arterial Blood Oxygen Saturation 87.5 % (95-100) *L Arterial Blood Base Excess 12.8 (-2-2) *H Cameron Test Positive Plan Problems: (1) Abdominal pain Assessment & Plan: states improved. tolerating diet. passing flatus abdominal exam benign lft's okay leukocytosis likely from steroids will monitor clinically for now. (2) Venous stasis ulcer Assessment & Plan: Patient presents with multiple linear chronic wounds to his lower extremities and some areas of ulcerations. wounds seem in different stages of healing and most traumatic in nature some likely lower extremity venous stasis ulcer no active bleeding. no signs of active infection. no cellulitis. no edema. minimal tenderness poor hygiene Tx Plan: wash right and left left/feet daily with skin wipes apply hyrogel and skin protectant to legs daily place abd and wrap with kerlix daily thank you Jarred Hinson Oct 21, 2018 16:06
--- NOTE | 2018-10-21 19:20 | NUR ---
HAND-OFF: Report given to ANN Peter. Patient on bipap and stable.
--- NOTE | 2018-10-21 19:21 | NUR ---
NURSE NOTES: Report received from ANN Tarango. Observed pt sleeping on the bed. On Bipap 22/01, 28%. Arousable by voice. Denies pain at this time. A/O x3. SR with rn cardiac cath. IV on R AC 24G, intact and patent. Bed in the lowest position. Call light within reach. Will continue to monitor.
[2018-10-21 20:00] VITALS: BP 125/72
--- NOTE | 2018-10-21 21:00 | NUR ---
NURSE NOTES: pt refused to put bipap on and explained benefits and risks. Still refused bipap and put back to NC 4L, saturating at 97%.
[2018-10-21] MEDS: cefTRIAXone 1 GM in D5W 55 ML IVPB SCH (21:28)
--- NOTE | 2018-10-21 22:12 | General Progress Note ---
Assessment/Plan Problem List: (1) toxinc encephalopathy acute (2) Heroin abuse ICD Codes: F11.10 - Heroin abuse SNOMED: 861016957 (3) Opiate dependence, continuous ICD Codes: F11.20 - Opioid dependence, uncomplicated SNOMED: 774308466 Assessment/Plan Ativan prn clonidine prn remeron 15mg po qhs Subjective Neurologic/Psychiatric: Reports: anxiety, depressed, emotional problems Allergies: Coded Allergies: No Known Allergies (Unverified , 10/17/18) Subjective the pt is stable Objective Last 24 Hour Vital Signs Date Time Temp Pulse Resp B/P (MAP) Pulse Ox O2 Delivery O2 Flow Rate FiO2 10/21/18 19:15 87 22 99 Facial 50 10/21/18 19:11 86 20 100 Nasal Cannula 2.0 28 10/21/18 19:02 84 20 97 Nasal Cannula 3.0 32 10/21/18 19:01 97 Nasal Cannula 3.0 32 10/21/18 19:01 Nasal Cannula 3.0 32 10/21/18 18:16 102 131/77 10/21/18 17:03 73 22 100 Facial 50 10/21/18 16:00 Bi-pap 10/21/18 16:00 98.2 112 24 133/80 (97) 91 10/21/18 15:44 88 20 Bi-pap 50 10/21/18 15:35 97 10/21/18 15:04 90 19 98 Bi-pap 50 10/21/18 15:02 85 23 98 Facial 50 10/21/18 14:57 84 22 96 Nasal Cannula 3.0 32 10/21/18 14:55 Bi-pap 10/21/18 14:55 50 10/21/18 14:36 134 153/82 10/21/18 12:03 111 10/21/18 12:00 98.8 109 25 138/81 (100) 93 10/21/18 12:00 Nasal Cannula 4.0 10/21/18 11:37 Nasal Cannula 10/21/18 11:36 Nasal Cannula 10/21/18 08:44 133/80 10/21/18 08:19 77 18 94 Nasal Cannula 3.0 32 10/21/18 08:11 Nasal Cannula 3.0 32 10/21/18 08:11 91 Nasal Cannula 3.0 32 10/21/18 08:09 91 20 91 Nasal Cannula 3.0 32 10/21/18 08:00 97.0 112 24 133/80 (97) 91 10/21/18 08:00 Nasal Cannula 4.0 10/21/18 07:59 127 10/21/18 04:00 Nasal Cannula 2.0 10/21/18 03:42 119 10/21/18 03:18 78 18 93 Nasal Cannula 2.0 28 10/21/18 03:08 72 18 91 Nasal Cannula 2.0 28 10/21/18 00:00 98.1 78 16 128/78 (95) 24 10/21/18 00:00 Nasal Cannula 2.0 10/20/18 23:44 84 18 95 Nasal Cannula 2.0 28 10/20/18 23:34 81 18 94 Nasal Cannula 2.0 28 10/20/18 23:30 112 Intake and Output 10/20/18 10/21/18 19:00 07:00 Intake Total 1935 ml 555 ml Output Total 2000 ml 550 ml Balance -65 ml 5 ml Intake Oral 1160 ml 500 ml IV Total 775 ml 55 ml Output Urine Total 2000 ml 550 ml # Voids 5 5 # Bowel Movements 1 Laboratory Tests 10/21/18 13:55: Arterial Blood pH 7.378, Arterial Blood Partial Pressure CO2 70.8*H, Arterial Blood Partial Pressure O2 57.8L, Arterial Blood HCO3 40.8*H, Arterial Blood Oxygen Saturation 87.5*L, Arterial Blood Base Excess 12.8*H, Cameron Test Positive Height (Feet): 5 Height (Inches): 7.00 Weight (Pounds): 107 General Appearance: no apparent distress, alert, cachetic Spencer Langston MD Oct 21, 2018 22:12
[2018-10-22] VITALS: BP 142/80
--- NOTE | 2018-10-22 01:00 | NUR ---
NURSE NOTES: Asked to put biapap at night time, but still refused to wear it. Pt is on NC 4L, saturation 98%. Will continue to monitor.
[2018-10-22 04:00] VITALS: BP 134/64
--- NOTE | 2018-10-22 04:00 | NUR ---
NURSE NOTES: Observed pt sleeping on the bed. No signs of SOB with 4L NC, saturating at 98%. Will continue to monitor.
--- NOTE | 2018-10-22 04:30 | Progress Note ---
DATE: 10/21/2018 CARDIOLOGY PROGRESS NOTE SUBJECTIVE: The patient had significant increasing respiratory distress this morning. He also was tachycardic and developed episodes of rapid atrial fibrillation and spontaneously converted. Monitor now revealed sinus tachycardia with frequent atrial ectopics. OBJECTIVE: VITAL SIGNS: Blood pressure 125/72, pulse 131, respiratory rate 23, afebrile. LUNGS: Bilateral breath sounds. Rhonchi, expiratory wheezes. HEART: Irregularly irregular rhythm. Normal S1, S2. ABDOMEN: Soft. EXTREMITIES: Trace edema. LABORATORY DATA: ABG, 7.37, 71, 58. IMPRESSION: 1. COPD acute exacerbation. 2. Acute bronchospasm. 3. Acute on chronic respiratory acidosis. 4. Hypoxia. 5. Paroxysmal atrial fibrillation. 6. Paroxysmal atrial ectopy. 7. Nonsustained PVCs. 8. Acute on chronic diastolic congestive heart failure. 9. Severe pulmonary hypertension. 10. Peripheral artery disease. 11. Lower extremity skin ulcers. 12. Community-acquired pneumonia. PLAN: 1. BiPAP support. 2. Add diltiazem. 3. Continue diuresis with addition of acetazolamide to help stimulate respiratory drive by reducing metabolic alkalosis. 4. Respiratory hygiene. 5. DVT prophylaxis with no plans for full anticoagulation presently, but this needs to be readdressed based on clinical progress. 6. Continue antimicrobials. 7. Skin care. Justus Grewal M.D. DR: DIXON JOB#: [id number] CC: RICHARD
[2018-10-22] MEDS: Solu-MEDROL 125mg Inj IVP SCH ×3 (05:40→22:14)
[2018-10-22] MEDS: dilTIAZem HCl 30mg tab ORAL SCH ×3 (05:41→17:32)
--- NOTE | 2018-10-22 07:20 | NUR ---
HAND-OFF: Report given to ANN Bradley. Pt sleeping on the bed. No distress noted at this time.
--- NOTE | 2018-10-22 07:30 | NUR ---
NURSE NOTES: Received report from Nik Disla RN. Patient asleep in bed, opens eyes spontaneously, able to make needs known and follow commands. Receiving O2 via nasal cannula @ 4L/min, respirations even and unlabored. Right AC 24g IV site patent and asymptomatic. Bed locked in lowest position with side rails up x 3. All needs attended to. Call light within reach. Will continue to monitor.
[2018-10-22 08:00] VITALS: BP 121/61
--- NOTE | 2018-10-22 08:00 | Pulmonology Progress Note ---
Assessment/Plan Assessment/Plan 1. Acute respiratory failure with hypercapnia. 2. HIV. 3. COPD. 4. CHF. DISCUSSION: Continue nocturnal BiPAP ABG improved; Continue diuresis, antibiotics, pulmonary hygiene and steroids. I will continue to follow carefully. Discussed with nursing staff. Subjective Interval Events: On BiPAP q pm; now on nasal O2 Constitutional: Reports: no symptoms HEENT: Repors: no symptoms Respiratory: Reports: no symptoms Cardiovascular: Reports: no symptoms Gastrointestinal/Abdominal: Reports: no symptoms Genitourinary: Reports: no symptoms Neurologic: Reports: no symptoms Allergies: Coded Allergies: No Known Allergies (Unverified , 10/17/18) Objective Last 24 Hour Vital Signs Date Time Temp Pulse Resp B/P (MAP) Pulse Ox O2 Delivery O2 Flow Rate FiO2 10/22/18 05:41 102 134/64 10/22/18 04:00 4.0 10/22/18 04:00 102 10/22/18 04:00 98.7 90 24 134/64 (87) 100 10/22/18 04:00 Bi-pap 10/22/18 00:00 4.0 10/22/18 00:00 98.5 90 24 142/80 (100) 100 10/22/18 00:00 Bi-pap 10/22/18 00:00 127 10/21/18 23:43 115 137/77 10/21/18 20:00 28 10/21/18 20:00 Bi-pap 10/21/18 20:00 98.9 99 23 125/72 (89) 99 10/21/18 20:00 131 10/21/18 19:15 87 22 99 Facial 50 10/21/18 19:11 86 20 100 Nasal Cannula 2.0 28 10/21/18 19:02 84 20 97 Nasal Cannula 3.0 32 10/21/18 19:01 97 Nasal Cannula 3.0 32 10/21/18 19:01 Nasal Cannula 3.0 32 10/21/18 18:16 102 131/77 10/21/18 17:03 73 22 100 Facial 50 10/21/18 16:00 Bi-pap 10/21/18 16:00 98.2 112 24 133/80 (97) 91 10/21/18 15:44 88 20 Bi-pap 50 10/21/18 15:35 97 10/21/18 15:04 90 19 98 Bi-pap 50 10/21/18 15:02 85 23 98 Facial 50 10/21/18 14:57 84 22 96 Nasal Cannula 3.0 32 10/21/18 14:55 Bi-pap 10/21/18 14:55 50 10/21/18 14:36 134 153/82 10/21/18 12:03 111 10/21/18 12:00 98.8 109 25 138/81 (100) 93 10/21/18 12:00 Nasal Cannula 4.0 10/21/18 11:37 Nasal Cannula 10/21/18 11:36 Nasal Cannula 10/21/18 08:44 133/80 10/21/18 08:19 77 18 94 Nasal Cannula 3.0 32 10/21/18 08:11 Nasal Cannula 3.0 32 10/21/18 08:11 91 Nasal Cannula 3.0 32 10/21/18 08:09 91 20 91 Nasal Cannula 3.0 32 10/21/18 08:00 97.0 112 24 133/80 (97) 91 10/21/18 08:00 Nasal Cannula 4.0 Intake and Output 10/21/18 10/22/18 19:00 07:00 Intake Total 500 ml 360 ml Output Total 725 ml 1200 ml Balance -225 ml -840 ml Intake Oral 500 ml 360 ml Output Urine Total 725 ml 1200 ml # Voids 6 # Bowel Movements 2 General Appearance: no acute distress HEENT: normocephalic Respiratory/Chest: chest wall non-tender, lungs clear Cardiovascular: normal peripheral pulses, normal rate Abdomen: normal bowel sounds Laboratory Tests 10/21/18 13:55: Arterial Blood pH 7.378, Arterial Blood Partial Pressure CO2 70.8*H, Arterial Blood Partial Pressure O2 57.8L, Arterial Blood HCO3 40.8*H, Arterial Blood Oxygen Saturation 87.5*L, Arterial Blood Base Excess 12.8*H, Cameron Test Positive 10/22/18 07:20: Sodium Level [Pending], Potassium Level [Pending], Chloride Level [Pending], Carbon Dioxide Level [Pending], Blood Urea Nitrogen [Pending], Creatinine [ Pending], Estimat Glomerular Filtration Rate [Pending], Glucose Level [Pending] , Calcium Level [Pending], Magnesium Level [Pending], Total Bilirubin [Pending] , Aspartate Amino Transf (AST/SGOT) [Pending], Alanine Aminotransferase (ALT/ SGPT) [Pending], Alkaline Phosphatase [Pending], Pro-B-Type Natriuretic Peptide [Pending], Total Protein [Pending], Albumin [Pending], Globulin [Pending] Current Medications Medications (Trade) Dose Ordered Sig/Aimee Route PRN Reason Start Time Stop Time Status Last Admin Dose Admin Acetaminophen (Tylenol) 650 mg Q6H PRN ORAL Mild Pain/Temp > 100.5 10/18/18 04:45 11/17/18 04:44 10/21/18 12:40 Acetazolamide (Diamox) 250 mg TWICE A DAY ORAL 10/20/18 18:00 11/19/18 17:59 10/21/18 18:16 Ceftriaxone Sodium 1 gm/ Dextrose 55 ml @ 110 mls/hr Q24H IVPB 10/18/18 22:00 10/23/18 21:59 10/21/18 21:28 Diltiazem HCl (Cardizem) 30 mg EVERY 6 HOURS ORAL 10/21/18 14:00 11/20/18 13:59 10/22/18 05:41 Furosemide (Lasix) 40 mg DAILY IV 10/20/18 09:00 11/19/18 08:59 10/21/18 08:44 Heparin Sodium (Porcine) (Heparin 5000 units/ml) 5,000 units EVERY 12 HOURS SUBQ 10/18/18 21:00 11/17/18 20:59 10/21/18 21:29 Lisinopril (Prinivil) 20 mg DAILY ORAL 10/20/18 09:00 11/19/18 08:59 10/21/18 08:44 Lorazepam (Ativan 2mg/ml 1ml) 1 mg Q6H PRN IM anxiety 10/18/18 06:00 10/24/18 11:59 10/21/18 03:48 Methylprednisolone Sodium Succinate (Solu-MEDROL) 60 mg EVERY 8 HOURS IVP 10/18/18 06:00 11/15/18 21:59 10/22/18 05:40 Mirtazapine (Remeron) 15 mg BEDTIME ORAL 10/18/18 21:00 11/17/18 20:59 10/21/18 21:28 Abhijit Morris MD Oct 22, 2018 08:00
[2018-10-22 08:47] LABS: ALANINE AMINOTRANSFERASE 24 U/L (12-78); ALBUMIN 2.6 G/DL (3.4-5.0); ALBUMIN/GLOBULIN RATIO 0.6 (1.0-2.7); ALKALINE PHOSPHATASE 66 U/L (46-116); ANION GAP 0 mmol/L (5-15); ASPARTATE AMINO TRANSFERASE 22 U/L (15-37); BILIRUBIN,TOTAL 0.3 MG/DL (0.2-1.0); BLOOD UREA NITROGEN 32 mg/dL (7-18); CALCIUM 8.7 MG/DL (8.5-10.1); CARBON DIOXIDE 38 MMOL/L (21-32); CHLORIDE 105 MMOL/L (98-107); CREATININE 0.9 MG/DL (0.55-1.30); POTASSIUM 3.6 MMOL/L (3.5-5.1); SODIUM 143 MMOL/L (136-145)
[2018-10-22] MEDS: Lisinopril 20mg tab ORAL SCH (09:00)
[2018-10-22] MEDS: Heparin 5000 units/ml inj SUBQ SCH ×2 (09:01→22:14)
--- NOTE | 2018-10-22 09:13 | Infectious Diseases Prog Note ---
Assessment/Plan Assessment/Plan IMPRESSION: COPD, asthma exacerbation. HIV screen: negative. longstanding Heroin abuse, Nicotine dependence hypercapnic respiratory failure, diastolic CHF, anemia, hypertension. P; Continue Rocephin X 1 day Subjective ROS Limited/Unobtainable: No Constitutional: Reports: no symptoms Respiratory: Reports: productive cough Cardiovascular: Reports: no symptoms Gastrointestinal/Abdominal: Reports: no symptoms Genitourinary: Reports: no symptoms Allergies: Coded Allergies: No Known Allergies (Unverified , 10/17/18) Objective Vital Signs Last 24 Hour Vital Signs Date Time Temp Pulse Resp B/P (MAP) Pulse Ox O2 Delivery O2 Flow Rate FiO2 10/22/18 09:00 121/61 10/22/18 08:00 Nasal Cannula 4.0 10/22/18 08:00 4.0 10/22/18 05:41 102 134/64 10/22/18 04:00 4.0 10/22/18 04:00 102 10/22/18 04:00 98.7 90 24 134/64 (87) 100 10/22/18 04:00 Bi-pap 10/22/18 00:00 4.0 10/22/18 00:00 98.5 90 24 142/80 (100) 100 10/22/18 00:00 Bi-pap 10/22/18 00:00 127 10/21/18 23:43 115 137/77 10/21/18 20:00 28 10/21/18 20:00 Bi-pap 10/21/18 20:00 98.9 99 23 125/72 (89) 99 10/21/18 20:00 131 10/21/18 19:15 87 22 99 Facial 50 10/21/18 19:11 86 20 100 Nasal Cannula 2.0 28 10/21/18 19:02 84 20 97 Nasal Cannula 3.0 32 10/21/18 19:01 97 Nasal Cannula 3.0 32 10/21/18 19:01 Nasal Cannula 3.0 32 10/21/18 18:16 102 131/77 10/21/18 17:03 73 22 100 Facial 50 10/21/18 16:00 Bi-pap 10/21/18 16:00 98.2 112 24 133/80 (97) 91 10/21/18 15:44 88 20 Bi-pap 50 2/16/19 15:35 97 10/21/18 15:04 90 19 98 Bi-pap 50 10/21/18 15:02 85 23 98 Facial 50 10/21/18 14:57 84 22 96 Nasal Cannula 3.0 32 10/21/18 14:55 Bi-pap 10/21/18 14:55 50 10/21/18 14:36 134 153/82 10/21/18 12:03 111 10/21/18 12:00 98.8 109 25 138/81 (100) 93 10/21/18 12:00 Nasal Cannula 4.0 10/21/18 11:37 Nasal Cannula 10/21/18 11:36 Nasal Cannula Height (Feet): 5 Height (Inches): 7.00 Weight (Pounds): 107 General Appearance: cachetic HEENT: mucous membranes moist Respiratory/Chest: lungs clear, other - oxygen by nanal cannula Cardiovascular: tachycardia Abdomen: soft, non tender Extremities: no edema Skin: ulcers, other - stasis ulcers Neurologic/Psychiatric: alert, responsive Laboratory Tests Test 10/21/18 13:55 10/22/18 07:20 Arterial Blood pH 7.378 (7.350-7.450) Arterial Blood Partial Pressure CO2 70.8 mmHg (35.0-45.0) *H Arterial Blood Partial Pressure O2 57.8 mmHg (75.0-100.0) L Arterial Blood HCO3 40.8 mmol/L (22.0-26.0) *H Arterial Blood Oxygen Saturation 87.5 % (95-100) *L Arterial Blood Base Excess 12.8 (-2-2) *H Cameron Test Positive Sodium Level 143 MMOL/L (136-145) Potassium Level 3.6 MMOL/L (3.5-5.1) Chloride Level 105 MMOL/L (98-107) Carbon Dioxide Level 38 MMOL/L (21-32) H Anion Gap 0 mmol/L (5-15) L Blood Urea Nitrogen 32 mg/dL (7-18) H Creatinine 0.9 MG/DL (0.55-1.30) Estimat Glomerular Filtration Rate mL/min (>60) Glucose Level 131 MG/DL (74-106) H Calcium Level 8.7 MG/DL (8.5-10.1) Magnesium Level 2.2 MG/DL (1.8-2.4) Total Bilirubin 0.3 MG/DL (0.2-1.0) Aspartate Amino Transf (AST/SGOT) 22 U/L (15-37) Alanine Aminotransferase (ALT/SGPT) 24 U/L (12-78) Alkaline Phosphatase 66 U/L (46-116) Pro-B-Type Natriuretic Peptide 3985 pg/mL (0-125) H Total Protein 6.6 G/DL (6.4-8.2) Albumin 2.6 G/DL (3.4-5.0) L Globulin 4.0 g/dL Albumin/Globulin Ratio 0.6 (1.0-2.7) L Current Medications Medications (Trade) Dose Ordered Sig/Aimee Route PRN Reason Start Time Stop Time Status Last Admin Dose Admin Acetaminophen (Tylenol) 650 mg Q6H PRN ORAL Mild Pain/Temp > 100.5 10/18/18 04:45 11/17/18 04:44 10/21/18 12:40 Acetazolamide (Diamox) 250 mg TWICE A DAY ORAL 10/20/18 18:00 11/19/18 17:59 10/22/18 09:00 Ceftriaxone Sodium 1 gm/ Dextrose 55 ml @ 110 mls/hr Q24H IVPB 10/18/18 22:00 10/23/18 21:59 10/21/18 21:28 Diltiazem HCl (Cardizem) 30 mg EVERY 6 HOURS ORAL 10/21/18 14:00 11/20/18 13:59 10/22/18 05:41 Furosemide (Lasix) 40 mg DAILY IV 10/20/18 09:00 11/19/18 08:59 10/22/18 09:00 Heparin Sodium (Porcine) (Heparin 5000 units/ml) 5,000 units EVERY 12 HOURS SUBQ 10/18/18 21:00 11/17/18 20:59 10/22/18 09:01 Lisinopril (Prinivil) 20 mg DAILY ORAL 10/20/18 09:00 11/19/18 08:59 10/22/18 09:00 Lorazepam (Ativan 2mg/ml 1ml) 1 mg Q6H PRN IM anxiety 10/18/18 06:00 10/24/18 11:59 10/21/18 03:48 Methylprednisolone Sodium Succinate (Solu-MEDROL) 60 mg EVERY 8 HOURS IVP 10/18/18 06:00 11/15/18 21:59 10/22/18 05:40 Mirtazapine (Remeron) 15 mg BEDTIME ORAL 10/18/18 21:00 11/17/18 20:59 10/21/18 21:28 Jez Espinoza MD Oct 22, 2018 09:13
--- NOTE | 2018-10-22 10:21 | General Progress Note ---
Assessment/Plan Problem List: (1) Hypercapnia ICD Codes: R06.89 - Other abnormalities of breathing SNOMED: 53182207 (2) Opiate dependence, continuous ICD Codes: F11.20 - Opioid dependence, uncomplicated SNOMED: 747271527 (3) CHF (congestive heart failure) ICD Codes: I50.9 - CHF (congestive heart failure) SNOMED: 21810518 Qualifiers: Qualified Codes: I50.9 - Heart failure, unspecified (4) Atrial flutter ICD Codes: I48.92 - Unspecified atrial flutter SNOMED: 2107816 (5) Diabetes mellitus ICD Codes: E11.9 - Type 2 diabetes mellitus without complications SNOMED: 82267471 (6) COPD exacerbation ICD Codes: J44.1 - Chronic obstructive pulmonary disease with (acute) exacerbation SNOMED: 420005161, 910028419 (7) toxinc encephalopathy acute Assessment/Plan cont current rx follow up abx steroids- wean per pulm diuresis with lasix resp rx abx dvt/stress ulcer prophylaxis monitor cxr- improving compliance stressed Subjective ROS Limited/Unobtainable: No Constitutional: Reports: malaise, weakness HEENT: Reports: no symptoms Cardiovascular: Reports: no symptoms Respiratory: Reports: cough, shortness of breath Gastrointestinal/Abdominal: Reports: no symptoms Genitourinary: Reports: no symptoms Neurologic/Psychiatric: Reports: no symptoms Endocrine: Reports: no symptoms Hematologic/Lymphatic: Reports: no symptoms Allergies: Coded Allergies: No Known Allergies (Unverified , 10/17/18) All Systems: reviewed and negative except above Subjective no events. resting. refusing bipap. denies cp/sob. decreased o2 requirements. now on 2l NC eating well. Objective Last 24 Hour Vital Signs Date Time Temp Pulse Resp B/P (MAP) Pulse Ox O2 Delivery O2 Flow Rate FiO2 10/22/18 09:00 121/61 10/22/18 08:00 Nasal Cannula 4.0 10/22/18 08:00 4.0 10/22/18 05:41 102 134/64 10/22/18 04:00 4.0 10/22/18 04:00 102 10/22/18 04:00 98.7 90 24 134/64 (87) 100 10/22/18 04:00 Bi-pap 10/22/18 00:00 4.0 10/22/18 00:00 98.5 90 24 142/80 (100) 100 10/22/18 00:00 Bi-pap 10/22/18 00:00 127 10/21/18 23:43 115 137/77 10/21/18 20:00 28 10/21/18 20:00 Bi-pap 10/21/18 20:00 98.9 99 23 125/72 (89) 99 10/21/18 20:00 131 10/21/18 19:15 87 22 99 Facial 50 10/21/18 19:11 86 20 100 Nasal Cannula 2.0 28 10/21/18 19:02 84 20 97 Nasal Cannula 3.0 32 10/21/18 19:01 97 Nasal Cannula 3.0 32 10/21/18 19:01 Nasal Cannula 3.0 32 10/21/18 18:16 102 131/77 10/21/18 17:03 73 22 100 Facial 50 10/21/18 16:00 Bi-pap 10/21/18 16:00 98.2 112 24 133/80 (97) 91 10/21/18 15:44 88 20 Bi-pap 50 10/21/18 15:35 97 10/21/18 15:04 90 19 98 Bi-pap 50 10/21/18 15:02 85 23 98 Facial 50 10/21/18 14:57 84 22 96 Nasal Cannula 3.0 32 10/21/18 14:55 Bi-pap 10/21/18 14:55 50 10/21/18 14:36 134 153/82 10/21/18 12:03 111 10/21/18 12:00 98.8 109 25 138/81 (100) 93 10/21/18 12:00 Nasal Cannula 4.0 10/21/18 11:37 Nasal Cannula 10/21/18 11:36 Nasal Cannula Intake and Output 10/21/18 10/22/18 19:00 07:00 Intake Total 500 ml 360 ml Output Total 725 ml 1200 ml Balance -225 ml -840 ml Intake Oral 500 ml 360 ml Output Urine Total 725 ml 1200 ml # Voids 6 # Bowel Movements 2 Laboratory Tests 10/21/18 13:55: Arterial Blood pH 7.378, Arterial Blood Partial Pressure CO2 70.8*H, Arterial Blood Partial Pressure O2 57.8L, Arterial Blood HCO3 40.8*H, Arterial Blood Oxygen Saturation 87.5*L, Arterial Blood Base Excess 12.8*H, Cameron Test Positive 10/22/18 07:20: Sodium Level 143, Potassium Level 3.6, Chloride Level 105, Carbon Dioxide Level 38H, Anion Gap 0L, Blood Urea Nitrogen 32H, Creatinine 0.9, Estimat Glomerular Filtration Rate , Glucose Level 131H, Calcium Level 8.7, Magnesium Level 2.2, Total Bilirubin 0.3, Aspartate Amino Transf (AST/SGOT) 22, Alanine Aminotransferase (ALT/SGPT) 24, Alkaline Phosphatase 66, Pro-B-Type Natriuretic Peptide 3985H, Total Protein 6.6, Albumin 2.6L, Globulin 4.0, Albumin/Globulin Ratio 0.6L Height (Feet): 5 Height (Inches): 7.00 Weight (Pounds): 107 Objective General Appearance: WD/WN, thin Neck: supple Cardiovascular: normal rate, regular rhythm Respiratory/Chest: chest wall non-tender, lungs clear, normal breath sounds, no respiratory distress Abdomen: normal bowel sounds, non tender, soft, no organomegaly Edema: no edema noted Arm (L), no edema noted Arm (R), no edema noted Leg (L), no edema noted Leg (R), no edema noted Pedal (L), no edema noted Pedal (R), no edema noted Generalized Varun Stewart MD Oct 22, 2018 10:21
[2018-10-22 12:00] VITALS: BP 131/72
--- NOTE | 2018-10-22 15:45 | Surgery Progress Note ---
Surgery Progress Note Subjective Additional Comments no acute events. stable. Objective Last 24 Hour Vital Signs Date Time Temp Pulse Resp B/P (MAP) Pulse Ox O2 Delivery O2 Flow Rate FiO2 10/22/18 12:35 96 131/72 10/22/18 12:00 4.0 10/22/18 12:00 98 10/22/18 12:00 Nasal Cannula 4.0 10/22/18 12:00 98.6 96 21 131/72 (91) 96 10/22/18 09:00 121/61 10/22/18 08:00 Nasal Cannula 4.0 10/22/18 08:00 98.0 82 22 121/61 (81) 96 10/22/18 08:00 108 10/22/18 08:00 4.0 10/22/18 05:41 102 134/64 10/22/18 04:00 4.0 10/22/18 04:00 102 10/22/18 04:00 98.7 90 24 134/64 (87) 100 10/22/18 04:00 Bi-pap 10/22/18 00:00 4.0 10/22/18 00:00 98.5 90 24 142/80 (100) 100 10/22/18 00:00 Bi-pap 10/22/18 00:00 127 10/21/18 23:43 115 137/77 10/21/18 20:00 28 10/21/18 20:00 Bi-pap 10/21/18 20:00 98.9 99 23 125/72 (89) 99 10/21/18 20:00 131 10/21/18 19:15 87 22 99 Facial 50 10/21/18 19:11 86 20 100 Nasal Cannula 2.0 28 10/21/18 19:02 84 20 97 Nasal Cannula 3.0 32 10/21/18 19:01 97 Nasal Cannula 3.0 32 10/21/18 19:01 Nasal Cannula 3.0 32 10/21/18 18:16 102 131/77 10/21/18 17:03 73 22 100 Facial 50 10/21/18 16:00 Bi-pap 10/21/18 16:00 98.2 112 24 133/80 (97) 91 I&O Intake and Output 10/21/18 10/22/18 18:59 06:59 Intake Total 500 ml 360 ml Output Total 725 ml 1200 ml Balance -225 ml -840 ml Intake Oral 500 ml 360 ml Output Urine Total 725 ml 1200 ml # Voids 6 # Bowel Movements 2 Dressing: other Wound: other Drains: other Cardiovascular: RSR Respiratory: clear Abdomen: soft, flat, present bowel sounds Extremities: other Laboratory Tests Test 10/22/18 07:20 Sodium Level 143 MMOL/L (136-145) Potassium Level 3.6 MMOL/L (3.5-5.1) Chloride Level 105 MMOL/L (98-107) Carbon Dioxide Level 38 MMOL/L (21-32) H Anion Gap 0 mmol/L (5-15) L Blood Urea Nitrogen 32 mg/dL (7-18) H Creatinine 0.9 MG/DL (0.55-1.30) Estimat Glomerular Filtration Rate mL/min (>60) Glucose Level 131 MG/DL (74-106) H Calcium Level 8.7 MG/DL (8.5-10.1) Magnesium Level 2.2 MG/DL (1.8-2.4) Total Bilirubin 0.3 MG/DL (0.2-1.0) Aspartate Amino Transf (AST/SGOT) 22 U/L (15-37) Alanine Aminotransferase (ALT/SGPT) 24 U/L (12-78) Alkaline Phosphatase 66 U/L (46-116) Pro-B-Type Natriuretic Peptide 3985 pg/mL (0-125) H Total Protein 6.6 G/DL (6.4-8.2) Albumin 2.6 G/DL (3.4-5.0) L Globulin 4.0 g/dL Albumin/Globulin Ratio 0.6 (1.0-2.7) L Plan Problems: (1) Abdominal pain Assessment & Plan: states improved. tolerating diet. passing flatus abdominal exam benign lft's okay leukocytosis likely from steroids will monitor clinically for now. (2) Venous stasis ulcer Assessment & Plan: Patient presents with multiple linear chronic wounds to his lower extremities and some areas of ulcerations. wounds seem in different stages of healing and most traumatic in nature some likely lower extremity venous stasis ulcer no active bleeding. no signs of active infection. no cellulitis. no edema. minimal tenderness poor hygiene Tx Plan: wash right and left left/feet daily with skin wipes apply hyrogel and skin protectant to legs daily place abd and wrap with kerlix daily thank you Jarred Hinson Oct 22, 2018 15:44
[2018-10-22 16:00] VITALS: BP 136/80
--- NOTE | 2018-10-22 19:13 | NUR ---
HAND-OFF: Report given to Nik Disla RN.
--- NOTE | 2018-10-22 19:18 | NUR ---
NURSE NOTES: Report received from ANN Bradley. Observed pt lying on the bed, awake, and asking for snacks. Denies any pain at this time. SR with cardiac exercise physiologist. On NC 4L, saturating at 98%. IV on R AC 24G, asymptomatic, TKO. Bed in the lowest position. Bed alarm on. Side rails up x2. Call light within reach. Will continue to monitor.
[2018-10-22 20:00] VITALS: BP 141/85
--- NOTE | 2018-10-22 20:20 | General Progress Note ---
Assessment/Plan Problem List: (1) toxinc encephalopathy acute (2) Heroin abuse ICD Codes: F11.10 - Heroin abuse SNOMED: 100024865 (3) Opiate dependence, continuous ICD Codes: F11.20 - Opioid dependence, uncomplicated SNOMED: 927193704 Assessment/Plan Ativan prn clonidine prn remeron 15mg po qhs Subjective Constitutional: Reports: malaise, weakness Neurologic/Psychiatric: Reports: anxiety, depressed, emotional problems Allergies: Coded Allergies: No Known Allergies (Unverified , 10/17/18) Subjective the pt is stable Objective Last 24 Hour Vital Signs Date Time Temp Pulse Resp B/P (MAP) Pulse Ox O2 Delivery O2 Flow Rate FiO2 10/22/18 20:00 Nasal Cannula 4.0 10/22/18 17:32 105 136/80 10/22/18 16:00 98.1 86 21 136/80 (98) 99 10/22/18 16:00 4.0 10/22/18 16:00 Nasal Cannula 4.0 10/22/18 16:00 105 10/22/18 12:35 96 131/72 10/22/18 12:00 4.0 10/22/18 12:00 98 10/22/18 12:00 Nasal Cannula 4.0 10/22/18 12:00 98.6 96 21 131/72 (91) 96 10/22/18 09:00 121/61 10/22/18 08:00 Nasal Cannula 4.0 10/22/18 08:00 98.0 82 22 121/61 (81) 96 10/22/18 08:00 108 10/22/18 08:00 4.0 10/22/18 05:41 102 134/64 10/22/18 04:00 4.0 10/22/18 04:00 102 10/22/18 04:00 98.7 90 24 134/64 (87) 100 10/22/18 04:00 Bi-pap 10/22/18 00:00 4.0 10/22/18 00:00 98.5 90 24 142/80 (100) 100 10/22/18 00:00 Bi-pap 10/22/18 00:00 127 10/21/18 23:43 115 137/77 Intake and Output 10/21/18 10/22/18 19:00 07:00 Intake Total 500 ml 360 ml Output Total 725 ml 1200 ml Balance -225 ml -840 ml Intake Oral 500 ml 360 ml Output Urine Total 725 ml 1200 ml # Voids 6 # Bowel Movements 2 Laboratory Tests 10/22/18 07:20: Sodium Level 143, Potassium Level 3.6, Chloride Level 105, Carbon Dioxide Level 38H, Anion Gap 0L, Blood Urea Nitrogen 32H, Creatinine 0.9, Estimat Glomerular Filtration Rate , Glucose Level 131H, Calcium Level 8.7, Magnesium Level 2.2, Total Bilirubin 0.3, Aspartate Amino Transf (AST/SGOT) 22, Alanine Aminotransferase (ALT/SGPT) 24, Alkaline Phosphatase 66, Pro-B-Type Natriuretic Peptide 3985H, Total Protein 6.6, Albumin 2.6L, Globulin 4.0, Albumin/Globulin Ratio 0.6L Height (Feet): 5 Height (Inches): 7.00 Weight (Pounds): 107 General Appearance: no apparent distress, alert Neurologic: oriented x 3, responsive, depressed affect Spencer Langston MD Oct 22, 2018 20:20
[2018-10-22] MEDS: cefTRIAXone 1 GM in D5W 55 ML IVPB SCH (22:14)
--- NOTE | 2018-10-22 22:30 | Progress Note ---
DATE: 10/22/2018 SUBJECTIVE: The patient has less congestion and is on 2 L nasal cannula with adequate oxygenation. He is unable to tolerate BiPAP. He is eating well. OBJECTIVE: VITAL SIGNS: Blood pressure 134/64, pulse 90, respirations 24, afebrile. LUNGS: Diminished breath sounds. Scattered rhonchi. HEART: Regular rhythm and rate. Normal S1, S2. ABDOMEN: Soft. EXTREMITIES: Trace edema. Skin ulcers are improved. LABORATORIES: Sodium 143, potassium 3.5, bicarb 38, BUN 32, creatinine 0.8. Pro-natriuretic peptide 3985. Albumin 2.6. IMPRESSION: 1. COPD exacerbation. 2. Paroxysmal bronchospasm. 3. Community-acquired pneumonia. 4. Acute on chronic diastolic congestive heart failure. 5. Moderate protein-calorie malnutrition. 6. Acute on chronic respiratory acidosis. 7. Peripheral artery disease. 8. Stasis ulcers. 9. Severe pulmonary hypertension. PLAN: 1. Taper steroids. 2. Taper oxygen. 3. Continue bronchodilators. 4. Adjust diuretics. 5. Continue acetazolamide to correct compensatory metabolic alkalosis. 6. Skin care. 7. Replace electrolytes and magnesium as needed. 8. Discharge planning. Justus Grewal M.D. DR: PEGGY JOB#: [id number] CC: RICHARD
[2018-10-23] VITALS: BP 145/88
[2018-10-23] MEDS: dilTIAZem HCl 30mg tab ORAL SCH ×6 (00:10→23:19)
--- NOTE | 2018-10-23 02:00 | NUR ---
NURSE NOTES: pt has turkey sandwiches x2 and 3 apple juice as snack. No signs of acute distress noted at this time. On NC O2 4L, saturating at 95%. Will continue to monitor.
[2018-10-23 04:00] VITALS: BP 136/81
--- NOTE | 2018-10-23 06:08 | NUR ---
NURSE NOTES: Pt desating to 85%. Put him on bipap again and pt now cooperative and will try to have it till breakfast tray. Saturation went up to 99%, with 20/5, 50% O2. Will continue to monitor.
[2018-10-23] MEDS: Solu-MEDROL 125mg Inj IVP SCH ×3 (06:40→21:29)
--- NOTE | 2018-10-23 07:51 | NUR ---
HAND-OFF: Report given to Berenice Sharma RN. Pt finished breakfast tray and sleeping on the bed. No acute distress noted at this time.
--- NOTE | 2018-10-23 07:53 | NUR ---
NURSE NOTES: Report received from Fredrick Disla RN.Pt resting in bed awake alert just done eating breakfast ,ate with appetite 100% of the food tray,noted no resp distress on 4L NC,denies any c/o pain or discomfort SR on the monitor,IV site to RAC intact ,skin warm and dry,SR upx2 HOB elevated,bed lock in lowest position,will continue with plans of care.
[2018-10-23 08:00] VITALS: BP 138/72
[2018-10-23] MEDS: Lisinopril 20mg tab ORAL SCH (08:33)
[2018-10-23] MEDS: Heparin 5000 units/ml inj SUBQ SCH ×2 (08:36→21:29)
--- NOTE | 2018-10-23 11:04 | Infectious Diseases Prog Note ---
Assessment/Plan Assessment/Plan antibiotics : ceftriaxone A 1. pneumonia s/p rx 2. COPD exacerbation 3. CHF 4. diabetes mellitus 5. anemia P 1. d/c ceftriaxone 2. observe off antibiotics Subjective ROS Limited/Unobtainable: Yes Allergies: Coded Allergies: No Known Allergies (Unverified , 10/17/18) Objective Vital Signs Last 24 Hour Vital Signs Date Time Temp Pulse Resp B/P (MAP) Pulse Ox O2 Delivery O2 Flow Rate FiO2 10/23/18 08:33 138/72 10/23/18 08:01 85 10/23/18 08:00 Nasal Cannula 4.0 10/23/18 08:00 137 10/23/18 08:00 97.2 78 22 138/72 (94) 92 10/23/18 08:00 4.0 10/23/18 06:33 Bi-pap 50 10/23/18 06:33 100 Bi-pap 50 10/23/18 06:00 74 136/81 10/23/18 04:00 74 10/23/18 04:00 98.2 90 28 136/81 (99) 96 10/23/18 04:00 4.0 10/23/18 04:00 Nasal Cannula 4.0 10/23/18 00:52 98 Nasal Cannula 3.0 32 10/23/18 00:52 Nasal Cannula 3.0 32 10/23/18 00:10 102 143/88 10/23/18 00:00 4.0 10/23/18 00:00 Nasal Cannula 4.0 10/23/18 00:00 98.0 102 20 145/88 (107) 97 10/22/18 20:00 Nasal Cannula 4.0 10/22/18 20:00 92 10/22/18 20:00 4.0 10/22/18 20:00 98.5 88 20 141/85 (103) 98 10/22/18 17:32 105 136/80 10/22/18 16:00 98.1 86 21 136/80 (98) 99 10/22/18 16:00 4.0 10/22/18 16:00 Nasal Cannula 4.0 10/22/18 16:00 105 10/22/18 12:35 96 131/72 10/22/18 12:00 4.0 10/22/18 12:00 98 10/22/18 12:00 Nasal Cannula 4.0 10/22/18 12:00 98.6 96 21 131/72 (91) 96 Height (Feet): 5 Height (Inches): 7.00 Weight (Pounds): 108 Respiratory/Chest: lungs clear Cardiovascular: normal rate, regular rhythm, no gallop/murmur Abdomen: soft, non tender Extremities: no edema Current Medications Medications (Trade) Dose Ordered Sig/Aimee Route PRN Reason Start Time Stop Time Status Last Admin Dose Admin Acetaminophen (Tylenol) 650 mg Q6H PRN ORAL Mild Pain/Temp > 100.5 10/18/18 04:45 11/17/18 04:44 10/21/18 12:40 Acetazolamide (Diamox) 250 mg TWICE A DAY ORAL 10/20/18 18:00 11/19/18 17:59 10/23/18 08:33 Ceftriaxone Sodium 1 gm/ Dextrose 55 ml @ 110 mls/hr Q24H IVPB 10/18/18 22:00 10/23/18 21:59 10/22/18 22:14 Diltiazem HCl (Cardizem) 30 mg EVERY 6 HOURS ORAL 10/21/18 14:00 11/20/18 13:59 10/23/18 00:10 Furosemide (Lasix) 20 mg DAILY IV 10/23/18 09:00 11/22/18 08:59 10/23/18 08:33 Heparin Sodium (Porcine) (Heparin 5000 units/ml) 5,000 units EVERY 12 HOURS SUBQ 10/18/18 21:00 11/17/18 20:59 10/23/18 08:36 Lisinopril (Prinivil) 20 mg DAILY ORAL 10/20/18 09:00 11/19/18 08:59 10/23/18 08:33 Lorazepam (Ativan 2mg/ml 1ml) 1 mg Q6H PRN IM anxiety 10/18/18 06:00 10/24/18 11:59 10/21/18 03:48 Methylprednisolone Sodium Succinate (Solu-MEDROL) 60 mg EVERY 8 HOURS IVP 10/18/18 06:00 11/15/18 21:59 10/23/18 06:40 Mirtazapine (Remeron) 15 mg BEDTIME ORAL 10/18/18 21:00 11/17/18 20:59 10/22/18 22:14 Jessy Zabala MD Oct 23, 2018 11:04
[2018-10-23 12:00] VITALS: BP 141/72
--- NOTE | 2018-10-23 13:00 | Cardiology Report ---
APPROVED REPORT EXAM: Two-dimensional and M-mode echocardiogram with Doppler and color Doppler. INDICATION CHRON PULMONARY HEART DIS M-Mode DIMENSIONS IVSd0.9 (0.7-1.1cm)Left Atrium (MM)3.4 (1.6-4.0cm) LVDd5.2 (3.5-5.6cm)Aortic Root3.4 (2.0-3.7cm) PWd0.9 (0.7-1.1cm)Aortic Cusp Exc.1.8 (1.5-2.0cm) IVSs1.3 cm LVDs3.8 (2.5-4.0cm) PWs1.3 cm Normal left ventricular chamber size, systolic function and wall motion. Left ventricular ejection fraction estimated to be 60%. No evidence of left ventricular hypertrophy. No evidence of pericardial fat or effusion. All other cardiac chamber sizes are within normal limits. Mild aortic valve sclerosis with adequate cusp excursion. Mildly thickened mitral valve leaflets with normal excursion. Mild mitral annulus and aortic root calcification. Pulmonic valve not well visualized. IVC at normal size with physiologic collapse . A color flow and spectral Doppler study was performed and revealed: No aortic regurgitation. Left ventricular diastolic function can not determined due to arrhythmia . Mild mitral regurgitation. Mild tricuspid regurgitation. Tricuspid systolic velocities suggests peak right ventricular systolic pressure of 86mmHg, consistent with severe pulmonary hypertension .
--- NOTE | 2018-10-23 13:00 | NUR ---
NURSE NOTES: PT STABLE NOTED NO RESP DISTRESS,SLEEPIN QUIETLY IN BED.
--- NOTE | 2018-10-23 15:37 | NUR ---
*-* INSURANCE *-* UPDATED CLINICALS HAVE BEEN FAXED TO: [facility] GELY: YOGESH PLEASE FAX THE REVIEW/CLINICAL P- [phone] F- [phone]
[2018-10-23 16:00] VITALS: BP 145/80
--- NOTE | 2018-10-23 16:13 | Surgery Progress Note ---
Surgery Progress Note Subjective Additional Comments no acute events. stable. comfortable Objective Last 24 Hour Vital Signs Date Time Temp Pulse Resp B/P (MAP) Pulse Ox O2 Delivery O2 Flow Rate FiO2 10/23/18 12:16 4.0 10/23/18 12:14 76 141/72 10/23/18 12:00 98.1 76 24 141/72 (95) 99 10/23/18 12:00 Nasal Cannula 4.0 10/23/18 08:33 138/72 10/23/18 08:01 85 10/23/18 08:00 Nasal Cannula 4.0 10/23/18 08:00 137 10/23/18 08:00 97.2 78 22 138/72 (94) 92 10/23/18 08:00 4.0 10/23/18 06:33 Bi-pap 50 10/23/18 06:33 100 Bi-pap 50 10/23/18 06:00 74 136/81 10/23/18 04:00 74 10/23/18 04:00 98.2 90 28 136/81 (99) 96 10/23/18 04:00 4.0 10/23/18 04:00 Nasal Cannula 4.0 10/23/18 00:52 98 Nasal Cannula 3.0 32 10/23/18 00:52 Nasal Cannula 3.0 32 10/23/18 00:10 102 143/88 10/23/18 00:00 4.0 10/23/18 00:00 Nasal Cannula 4.0 10/23/18 00:00 98.0 102 20 145/88 (107) 97 10/22/18 20:00 Nasal Cannula 4.0 10/22/18 20:00 92 10/22/18 20:00 4.0 10/22/18 20:00 98.5 88 20 141/85 (103) 98 10/22/18 17:32 105 136/80 I&O Intake and Output 10/22/18 10/23/18 18:59 06:59 Intake Total 800 ml 480 ml Output Total 2350 ml 1500 ml Balance -1550 ml -1020 ml Intake Oral 800 ml 480 ml Output Urine Total 2350 ml 1500 ml # Bowel Movements 2 Dressing: other Wound: other Drains: other Cardiovascular: RSR Respiratory: clear Abdomen: present bowel sounds, non-distended Extremities: other Plan Problems: (1) Abdominal pain Assessment & Plan: states improved. tolerating diet. passing flatus abdominal exam benign lft's okay leukocytosis likely from steroids will monitor clinically for now. (2) Venous stasis ulcer Assessment & Plan: Patient presents with multiple linear chronic wounds to his lower extremities and some areas of ulcerations. wounds seem in different stages of healing and most traumatic in nature some likely lower extremity venous stasis ulcer no active bleeding. no signs of active infection. no cellulitis. no edema. minimal tenderness poor hygiene Tx Plan: wash right and left left/feet daily with skin wipes apply hyrogel and skin protectant to legs daily place abd and wrap with kerlix daily thank you Jarred Hinson Oct 23, 2018 16:13
--- NOTE | 2018-10-23 18:00 | NUR ---
NURSE NOTES: Dr Grewal at bedside,seen pt,ordered to downgrade pt to Telemetry.
--- NOTE | 2018-10-23 19:25 | NUR ---
HAND-OFF: Report given to Carlos JUAREZ.Pt awake at this time ,no resp distress noted.
[2018-10-23 20:00] VITALS: BP 138/73
[2018-10-23] MEDS ORDERED: Tubing IV Secondary IV ONE (20:09)
--- NOTE | 2018-10-23 20:34 | Pulmonology Progress Note ---
Assessment/Plan Assessment/Plan 1. Acute respiratory failure with hypercapnia. 2. HIV. 3. COPD. 4. CHF. DISCUSSION: Continue nocturnal BiPAP ABG improved; Continue diuresis, antibiotics, pulmonary hygiene and steroids. I will continue to follow carefully. Discussed with nursing staff. Subjective Interval Events: None new; seen by surgery Constitutional: Reports: no symptoms HEENT: Repors: no symptoms Respiratory: Reports: no symptoms Cardiovascular: Reports: no symptoms Gastrointestinal/Abdominal: Reports: no symptoms Allergies: Coded Allergies: No Known Allergies (Unverified , 10/17/18) Objective Last 24 Hour Vital Signs Date Time Temp Pulse Resp B/P (MAP) Pulse Ox O2 Delivery O2 Flow Rate FiO2 10/23/18 17:47 90 145/80 10/23/18 16:00 4.0 10/23/18 16:00 90 10/23/18 16:00 Nasal Cannula 4.0 10/23/18 16:00 97.5 65 20 145/80 (101) 97 10/23/18 12:16 4.0 10/23/18 12:14 76 141/72 10/23/18 12:00 98.1 76 24 141/72 (95) 99 10/23/18 12:00 Nasal Cannula 4.0 10/23/18 08:33 138/72 10/23/18 08:01 85 10/23/18 08:00 Nasal Cannula 4.0 10/23/18 08:00 137 10/23/18 08:00 97.2 78 22 138/72 (94) 92 10/23/18 08:00 4.0 10/23/18 06:33 Bi-pap 50 10/23/18 06:33 100 Bi-pap 50 10/23/18 06:00 74 136/81 10/23/18 04:00 74 10/23/18 04:00 98.2 90 28 136/81 (99) 96 10/23/18 04:00 4.0 10/23/18 04:00 Nasal Cannula 4.0 10/23/18 00:52 98 Nasal Cannula 3.0 32 10/23/18 00:52 Nasal Cannula 3.0 32 10/23/18 00:10 102 143/88 10/23/18 00:00 4.0 10/23/18 00:00 Nasal Cannula 4.0 10/23/18 00:00 98.0 102 20 145/88 (107) 97 Intake and Output 10/22/18 10/23/18 18:59 06:59 Intake Total 800 ml 480 ml Output Total 2350 ml 1500 ml Balance -1550 ml -1020 ml Intake Oral 800 ml 480 ml Output Urine Total 2350 ml 1500 ml # Bowel Movements 2 General Appearance: no acute distress HEENT: normocephalic Respiratory/Chest: chest wall non-tender, lungs clear Cardiovascular: normal peripheral pulses, normal rate Abdomen: normal bowel sounds, soft, non tender Current Medications Medications (Trade) Dose Ordered Sig/Aimee Route PRN Reason Start Time Stop Time Status Last Admin Dose Admin Acetaminophen (Tylenol) 650 mg Q6H PRN ORAL Mild Pain/Temp > 100.5 10/18/18 04:45 11/17/18 04:44 10/21/18 12:40 Acetazolamide (Diamox) 250 mg TWICE A DAY ORAL 10/20/18 18:00 11/19/18 17:59 10/23/18 17:46 Diltiazem HCl (Cardizem) 30 mg EVERY 6 HOURS ORAL 10/21/18 14:00 11/20/18 13:59 10/23/18 17:47 Furosemide (Lasix) 20 mg DAILY IV 10/23/18 09:00 11/22/18 08:59 10/23/18 08:33 Heparin Sodium (Porcine) (Heparin 5000 units/ml) 5,000 units EVERY 12 HOURS SUBQ 10/18/18 21:00 11/17/18 20:59 10/23/18 08:36 Lisinopril (Prinivil) 20 mg DAILY ORAL 10/20/18 09:00 11/19/18 08:59 10/23/18 08:33 Lorazepam (Ativan 2mg/ml 1ml) 1 mg Q6H PRN IM anxiety 10/18/18 06:00 10/24/18 11:59 10/21/18 03:48 Methylprednisolone Sodium Succinate (Solu-MEDROL) 60 mg EVERY 8 HOURS IVP 10/18/18 06:00 11/15/18 21:59 10/23/18 14:33 Mirtazapine (Remeron) 15 mg BEDTIME ORAL 10/18/18 21:00 11/17/18 20:59 10/22/18 22:14 Abhijit Morris MD Oct 23, 2018 20:34
--- NOTE | 2018-10-23 21:45 | General Progress Note ---
Assessment/Plan Problem List: (1) toxinc encephalopathy acute (2) Heroin abuse ICD Codes: F11.10 - Heroin abuse SNOMED: 651151787 (3) Opiate dependence, continuous ICD Codes: F11.20 - Opioid dependence, uncomplicated SNOMED: 630185004 Assessment/Plan Ativan prn clonidine prn remeron 15mg po qhs Subjective Neurologic/Psychiatric: Reports: anxiety, depressed, emotional problems Allergies: Coded Allergies: No Known Allergies (Unverified , 10/17/18) Subjective the pt is stable Objective Last 24 Hour Vital Signs Date Time Temp Pulse Resp B/P (MAP) Pulse Ox O2 Delivery O2 Flow Rate FiO2 10/23/18 20:00 4.0 10/23/18 20:00 Nasal Cannula 4.0 10/23/18 20:00 89 10/23/18 20:00 98.1 87 24 138/73 (94) 97 10/23/18 17:47 90 145/80 10/23/18 16:00 4.0 10/23/18 16:00 90 10/23/18 16:00 Nasal Cannula 4.0 10/23/18 16:00 97.5 65 20 145/80 (101) 97 10/23/18 12:16 4.0 10/23/18 12:14 76 141/72 10/23/18 12:00 98.1 76 24 141/72 (95) 99 10/23/18 12:00 Nasal Cannula 4.0 10/23/18 08:33 138/72 10/23/18 08:01 85 10/23/18 08:00 Nasal Cannula 4.0 10/23/18 08:00 137 10/23/18 08:00 97.2 78 22 138/72 (94) 92 10/23/18 08:00 4.0 10/23/18 06:33 Bi-pap 50 10/23/18 06:33 100 Bi-pap 50 10/23/18 06:00 74 136/81 10/23/18 04:00 74 10/23/18 04:00 98.2 90 28 136/81 (99) 96 10/23/18 04:00 4.0 10/23/18 04:00 Nasal Cannula 4.0 10/23/18 00:52 98 Nasal Cannula 3.0 32 10/23/18 00:52 Nasal Cannula 3.0 32 10/23/18 00:10 102 143/88 10/23/18 00:00 4.0 10/23/18 00:00 Nasal Cannula 4.0 10/23/18 00:00 98.0 102 20 145/88 (107) 97 Intake and Output 10/22/18 10/23/18 18:59 06:59 Intake Total 800 ml 480 ml Output Total 2350 ml 1500 ml Balance -1550 ml -1020 ml Intake Oral 800 ml 480 ml Output Urine Total 2350 ml 1500 ml # Bowel Movements 2 Height (Feet): 5 Height (Inches): 7.00 Weight (Pounds): 108 Spencer Langston MD Oct 23, 2018 21:45
--- NOTE | 2018-10-23 21:48 | Diagnostic Imaging Report ---
APPROVED REPORT CPT Code: 39395 Symptoms Comments: Infection and Edema BILATERAL: Common femoral artery waveform analysis is within normal limits at rest. Color flow duplex sonography reveals patency of the superficial femoral and popliteal, and tibial arteries. There is no evidence of stenosis or occlusion within these segments. Doppler tibial artery waveform analysis is within normal limits bilaterally.
--- NOTE | 2018-10-23 21:51 | Diagnostic Imaging Report ---
APPROVED REPORT CPT Code: 87219 Present Symptoms Comments: Pain Pain BILATERAL: Imaging reveals a patent deep venous system bilaterally. There is no evidence of thrombus within the common femoral, superficial femoral, popliteal or tibial segments. The greater saphenous veins are also within normal limits. Doppler indicates normal spontaneous flow within these segments.
--- NOTE | 2018-10-23 22:25 | NUR ---
NURSE NOTES: Recvd pt from Juany RN, transfer from [facility]. Pt is awake, alert and AOX4. Pt is on NC @ 4L with no sign of resp distress or sob. Pt IV is dislodged, will attempt to restart new IV site. Pt denies pain, n/v. Pt is very hungry and constantly asking for food. VSS. Belongings were reviewed. Will continue with plan of care.
--- NOTE | 2018-10-23 22:45 | Progress Note ---
DATE: 10/23/2018 SUBJECTIVE: The patient is weak. No chest pain. Less short of breath. Monitored rhythm, sinus. OBJECTIVE: VITAL SIGNS: Blood pressure 145/80, pulse 90, respiratory rate 20, and oxygen saturation on 4 L, 97%. LUNGS: Diminished breath sounds. Scattered rhonchi. HEART: Regular rhythm and rate. Normal S1, S2 with a fourth heart sound. ABDOMEN: Soft. EXTREMITIES: Trace edema. SKIN: Skin changes. Foot ulcers. LABORATORY DATA: No new labs today. IMPRESSION: 1. COPD exacerbation. 2. Acute bronchospasm. 3. Acute on chronic respiratory acidosis. 4. Functional decline. 5. Acute on chronic congestive heart failure. 6. Peripheral artery disease. PLAN: 1. Re-order lab studies. 2. Continue steroid taper. 3. Respiratory hygiene. 4. Bronchodilators. 5. Will need rehabilitation. Justus Grewal M.D. DR: NABILA JOB#: [id number] CC: RICHARD
[2018-10-24] VITALS: BP 144/81
[2018-10-24] MEDS: Solu-MEDROL 125mg Inj IVP SCH ×2 (06:00→06:25)
[2018-10-24] MEDS: dilTIAZem HCl 30mg tab ORAL SCH ×3 (06:25→17:17)
--- NOTE | 2018-10-24 07:28 | NUR ---
NURSE NOTES: multiple attempts made by two nurses to restart IV, unsuccessful. Will contact Dr Grewal to notify
[2018-10-24 07:50] LABS: HEMATOCRIT 39.6 % (42.0-52.0); HEMOGLOBIN 11.6 G/DL (14.2-18.0); MEAN CORPUSCULAR VOLUME 89 FL (80-99); PLATELET COUNT 177 K/UL (150-450); RED BLOOD COUNT 4.44 M/UL (4.70-6.10); RED CELL DISTRIBUTION WIDTH 17.3 % (11.6-14.8); WHITE BLOOD COUNT 9.1 K/UL (4.8-10.8)
[2018-10-24 08:00] VITALS: BP 143/78
[2018-10-24 08:22] LABS: ALANINE AMINOTRANSFERASE 26 U/L (12-78); ALBUMIN 2.8 G/DL (3.4-5.0); ALBUMIN/GLOBULIN RATIO 0.7 (1.0-2.7); ALKALINE PHOSPHATASE 68 U/L (46-116); ANION GAP 4 mmol/L (5-15); ASPARTATE AMINO TRANSFERASE 23 U/L (15-37); BILIRUBIN,TOTAL 0.3 MG/DL (0.2-1.0); BLOOD UREA NITROGEN 26 mg/dL (7-18); CALCIUM 8.6 MG/DL (8.5-10.1); CARBON DIOXIDE 34 MMOL/L (21-32); CHLORIDE 106 MMOL/L (98-107); CREATININE 0.8 MG/DL (0.55-1.30); POTASSIUM 3.4 MMOL/L (3.5-5.1); SODIUM 144 MMOL/L (136-145)
--- NOTE | 2018-10-24 09:26 | General Progress Note ---
Assessment/Plan Problem List: (1) Hypercapnia ICD Codes: R06.89 - Other abnormalities of breathing SNOMED: 10389095 (2) Opiate dependence, continuous ICD Codes: F11.20 - Opioid dependence, uncomplicated SNOMED: 283083177 (3) CHF (congestive heart failure) ICD Codes: I50.9 - CHF (congestive heart failure) SNOMED: 87282202 Qualifiers: Qualified Codes: I50.9 - Heart failure, unspecified (4) Atrial flutter ICD Codes: I48.92 - Unspecified atrial flutter SNOMED: 7809481 (5) Diabetes mellitus ICD Codes: E11.9 - Type 2 diabetes mellitus without complications SNOMED: 93531160 (6) COPD exacerbation ICD Codes: J44.1 - Chronic obstructive pulmonary disease with (acute) exacerbation SNOMED: 578970454, 033476596 (7) toxinc encephalopathy acute Status: stable, progressing Assessment/Plan cont current rx follow up abx steroids- wean per pulm diuresis with lasix monitor labs replace k resp rx abx dvt/stress ulcer prophylaxis monitor cxr- improving compliance stressed Subjective ROS Limited/Unobtainable: No Constitutional: Reports: malaise, weakness HEENT: Reports: no symptoms Cardiovascular: Reports: no symptoms Respiratory: Reports: cough, shortness of breath Gastrointestinal/Abdominal: Reports: no symptoms Genitourinary: Reports: no symptoms Neurologic/Psychiatric: Reports: no symptoms Allergies: Coded Allergies: No Known Allergies (Unverified , 10/17/18) Subjective no events. resting. refusing bipap. denies cp/sob. decreased o2 requirements. now on 2l NC eating well. labs noted Objective Last 24 Hour Vital Signs Date Time Temp Pulse Resp B/P (MAP) Pulse Ox O2 Delivery O2 Flow Rate FiO2 10/24/18 07:37 Nasal Cannula 4.0 36 10/24/18 07:37 98 Nasal Cannula 4.0 36 10/24/18 06:25 91 144/81 10/24/18 04:00 91 10/24/18 00:00 92 10/24/18 00:00 98.0 95 24 144/81 (102) 97 10/24/18 00:00 4.0 10/24/18 00:00 Nasal Cannula 4.0 10/23/18 23:19 106 138/73 10/23/18 22:16 Nasal Cannula 4.0 36 10/23/18 22:15 100 Nasal Cannula 4.0 36 10/23/18 20:00 4.0 10/23/18 20:00 Nasal Cannula 4.0 10/23/18 20:00 89 10/23/18 20:00 98.1 87 24 138/73 (94) 97 10/23/18 17:47 90 145/80 10/23/18 16:00 4.0 10/23/18 16:00 90 10/23/18 16:00 Nasal Cannula 4.0 10/23/18 16:00 97.5 65 20 145/80 (101) 97 10/23/18 12:16 4.0 10/23/18 12:14 76 141/72 10/23/18 12:00 98.1 76 24 141/72 (95) 99 10/23/18 12:00 Nasal Cannula 4.0 Intake and Output 10/23/18 10/24/18 19:00 07:00 Intake Total 1560 ml 240 ml Output Total 1650 ml Balance -90 ml 240 ml Intake Oral 1560 ml 240 ml Output Urine Total 1650 ml # Bowel Movements 1 Laboratory Tests 10/24/18 06:37: White Blood Count 9.1, Red Blood Count 4.44L, Hemoglobin 11.6L, Hematocrit 39.6L , Mean Corpuscular Volume 89, Mean Corpuscular Hemoglobin 26.0L, Mean Corpuscular Hemoglobin Concent 29.1L, Red Cell Distribution Width 17.3H, Platelet Count 177, Mean Platelet Volume 6.4L, Neutrophils (%) (Auto) , Lymphocytes (%) (Auto) , Monocytes (%) (Auto) , Eosinophils (%) (Auto) , Basophils (%) (Auto) , Neutrophils % (Manual) [Pending], Lymphocytes % (Manual) [Pending], Platelet Estimate [Pending], Platelet Morphology [Pending], Sodium Level 144, Potassium Level 3.4L, Chloride Level 106, Carbon Dioxide Level 34H, Anion Gap 4L, Blood Urea Nitrogen 26H, Creatinine 0.8, Estimat Glomerular Filtration Rate , Glucose Level 119H, Calcium Level 8.6, Magnesium Level 2.0, Total Bilirubin 0.3, Aspartate Amino Transf (AST/SGOT) 23, Alanine Aminotransferase (ALT/SGPT) 26, Alkaline Phosphatase 68, Pro-B-Type Natriuretic Peptide 4041H, Total Protein 7.0, Albumin 2.8L, Globulin 4.2, Albumin/Globulin Ratio 0.7L Height (Feet): 5 Height (Inches): 7.00 Weight (Pounds): 108 Objective General Appearance: WD/WN, thin Neck: supple Cardiovascular: normal rate, regular rhythm Respiratory/Chest: chest wall non-tender, lungs clear, normal breath sounds, no respiratory distress Abdomen: normal bowel sounds, non tender, soft, no organomegaly Edema: no edema noted Arm (L), no edema noted Arm (R), no edema noted Leg (L), no edema noted Leg (R), no edema noted Pedal (L), no edema noted Pedal (R), no edema noted Generalized Varun Stewart MD Oct 24, 2018 09:26
--- NOTE | 2018-10-24 09:40 | Pulmonology Progress Note ---
Assessment/Plan Assessment/Plan 1. Acute respiratory failure with hypercapnia. Improved 2. HIV. 3. COPD. 4. CHF. DISCUSSION: Continue nocturnal BiPAP ABG improved; willdc Diamox Changed to PO steroids Continue diuresis, antibiotics, pulmonary hygiene and steroids. I will continue to follow carefully. Discussed with nursing staff. Subjective Interval Events: None new Constitutional: Reports: no symptoms HEENT: Repors: no symptoms Respiratory: Reports: no symptoms Cardiovascular: Reports: no symptoms Gastrointestinal/Abdominal: Reports: no symptoms Genitourinary: Reports: no symptoms Allergies: Coded Allergies: No Known Allergies (Unverified , 10/17/18) Objective Last 24 Hour Vital Signs Date Time Temp Pulse Resp B/P (MAP) Pulse Ox O2 Delivery O2 Flow Rate FiO2 10/24/18 07:37 Nasal Cannula 4.0 36 10/24/18 07:37 98 Nasal Cannula 4.0 36 10/24/18 06:25 91 144/81 10/24/18 04:00 91 10/24/18 00:00 92 10/24/18 00:00 98.0 95 24 144/81 (102) 97 10/24/18 00:00 4.0 10/24/18 00:00 Nasal Cannula 4.0 10/23/18 23:19 106 138/73 10/23/18 22:16 Nasal Cannula 4.0 36 10/23/18 22:15 100 Nasal Cannula 4.0 36 10/23/18 20:00 4.0 10/23/18 20:00 Nasal Cannula 4.0 10/23/18 20:00 89 10/23/18 20:00 98.1 87 24 138/73 (94) 97 10/23/18 17:47 90 145/80 10/23/18 16:00 4.0 10/23/18 16:00 90 10/23/18 16:00 Nasal Cannula 4.0 10/23/18 16:00 97.5 65 20 145/80 (101) 97 10/23/18 12:16 4.0 10/23/18 12:14 76 141/72 10/23/18 12:00 98.1 76 24 141/72 (95) 99 10/23/18 12:00 Nasal Cannula 4.0 Intake and Output 10/23/18 10/24/18 18:59 06:59 Intake Total 1560 ml 240 ml Output Total 1650 ml Balance -90 ml 240 ml Intake Oral 1560 ml 240 ml Output Urine Total 1650 ml # Bowel Movements 1 General Appearance: no acute distress HEENT: normocephalic Respiratory/Chest: chest wall non-tender, lungs clear Cardiovascular: normal peripheral pulses, normal rate Abdomen: normal bowel sounds, soft, non tender Extremities: no cyanosis Laboratory Tests 10/24/18 06:37: White Blood Count 9.1, Red Blood Count 4.44L, Hemoglobin 11.6L, Hematocrit 39.6L , Mean Corpuscular Volume 89, Mean Corpuscular Hemoglobin 26.0L, Mean Corpuscular Hemoglobin Concent 29.1L, Red Cell Distribution Width 17.3H, Platelet Count 177, Mean Platelet Volume 6.4L, Neutrophils (%) (Auto) , Lymphocytes (%) (Auto) , Monocytes (%) (Auto) , Eosinophils (%) (Auto) , Basophils (%) (Auto) , Neutrophils % (Manual) [Pending], Lymphocytes % (Manual) [Pending], Platelet Estimate [Pending], Platelet Morphology [Pending], Sodium Level 144, Potassium Level 3.4L, Chloride Level 106, Carbon Dioxide Level 34H, Anion Gap 4L, Blood Urea Nitrogen 26H, Creatinine 0.8, Estimat Glomerular Filtration Rate , Glucose Level 119H, Calcium Level 8.6, Magnesium Level 2.0, Total Bilirubin 0.3, Aspartate Amino Transf (AST/SGOT) 23, Alanine Aminotransferase (ALT/SGPT) 26, Alkaline Phosphatase 68, Pro-B-Type Natriuretic Peptide 4041H, Total Protein 7.0, Albumin 2.8L, Globulin 4.2, Albumin/Globulin Ratio 0.7L Current Medications Medications (Trade) Dose Ordered Sig/Aimee Route PRN Reason Start Time Stop Time Status Last Admin Dose Admin Acetaminophen (Tylenol) 650 mg Q6H PRN ORAL Mild Pain/Temp > 100.5 10/18/18 04:45 11/17/18 04:44 10/21/18 12:40 Acetazolamide (Diamox) 250 mg TWICE A DAY ORAL 10/20/18 18:00 11/19/18 17:59 10/23/18 17:46 Diltiazem HCl (Cardizem) 30 mg EVERY 6 HOURS ORAL 10/21/18 14:00 11/20/18 13:59 10/24/18 06:25 Furosemide (Lasix) 20 mg DAILY IV 10/23/18 09:00 11/22/18 08:59 10/23/18 08:33 Heparin Sodium (Porcine) (Heparin 5000 units/ml) 5,000 units EVERY 12 HOURS SUBQ 10/18/18 21:00 11/17/18 20:59 10/23/18 21:29 Lisinopril (Prinivil) 20 mg DAILY ORAL 10/20/18 09:00 11/19/18 08:59 10/23/18 08:33 Lorazepam (Ativan 2mg/ml 1ml) 1 mg Q6H PRN IM anxiety 10/18/18 06:00 10/24/18 11:59 10/21/18 03:48 Methylprednisolone Sodium Succinate (Solu-MEDROL) 60 mg EVERY 8 HOURS IVP 10/18/18 06:00 11/15/18 21:59 10/23/18 21:29 Mirtazapine (Remeron) 15 mg BEDTIME ORAL 10/18/18 21:00 11/17/18 20:59 10/23/18 21:29 Potassium Chloride (K-Dur) 30 meq ONCE ORAL 10/24/18 09:29 10/24/18 10:30 Abhijit Morris MD Oct 24, 2018 09:40
[2018-10-24] MEDS: Lisinopril 20mg tab ORAL SCH (09:59)
[2018-10-24] MEDS: Heparin 5000 units/ml inj SUBQ SCH ×2 (10:00→21:22)
--- NOTE | 2018-10-24 10:44 | Infectious Diseases Prog Note ---
Assessment/Plan Assessment/Plan antibiotics : none A 1. pneumonia s/p rx 2. COPD exacerbation 3. CHF 4. diabetes mellitus 5. anemia P 1. observe off antibiotics Subjective ROS Limited/Unobtainable: Yes Allergies: Coded Allergies: No Known Allergies (Unverified , 10/17/18) Objective Vital Signs Last 24 Hour Vital Signs Date Time Temp Pulse Resp B/P (MAP) Pulse Ox O2 Delivery O2 Flow Rate FiO2 10/24/18 09:59 143/78 10/24/18 09:00 Nasal Cannula 4.0 10/24/18 08:00 97.9 77 18 143/78 (99) 99 10/24/18 07:42 85 10/24/18 07:37 Nasal Cannula 4.0 36 10/24/18 07:37 98 Nasal Cannula 4.0 36 10/24/18 06:25 91 144/81 10/24/18 04:00 91 10/24/18 00:00 92 10/24/18 00:00 98.0 95 24 144/81 (102) 97 10/24/18 00:00 4.0 10/24/18 00:00 Nasal Cannula 4.0 10/23/18 23:19 106 138/73 10/23/18 22:16 Nasal Cannula 4.0 36 10/23/18 22:15 100 Nasal Cannula 4.0 36 10/23/18 20:00 4.0 10/23/18 20:00 Nasal Cannula 4.0 10/23/18 20:00 89 10/23/18 20:00 98.1 87 24 138/73 (94) 97 10/23/18 17:47 90 145/80 10/23/18 16:00 4.0 10/23/18 16:00 90 10/23/18 16:00 Nasal Cannula 4.0 10/23/18 16:00 97.5 65 20 145/80 (101) 97 10/23/18 12:16 4.0 10/23/18 12:14 76 141/72 10/23/18 12:00 98.1 76 24 141/72 (95) 99 10/23/18 12:00 Nasal Cannula 4.0 Height (Feet): 5 Height (Inches): 7.00 Weight (Pounds): 108 Respiratory/Chest: lungs clear Cardiovascular: normal rate, regular rhythm, no gallop/murmur Abdomen: soft, non tender Extremities: no edema Laboratory Tests Test 10/24/18 06:37 White Blood Count 9.1 K/UL (4.8-10.8) Red Blood Count 4.44 M/UL (4.70-6.10) L Hemoglobin 11.6 G/DL (14.2-18.0) L Hematocrit 39.6 % (42.0-52.0) L Mean Corpuscular Volume 89 FL (80-99) Mean Corpuscular Hemoglobin 26.0 PG (27.0-31.0) L Mean Corpuscular Hemoglobin Concent 29.1 G/DL (32.0-36.0) L Red Cell Distribution Width 17.3 % (11.6-14.8) H Platelet Count 177 K/UL (150-450) Mean Platelet Volume 6.4 FL (6.5-10.1) L Neutrophils (%) (Auto) % (45.0-75.0) Lymphocytes (%) (Auto) % (20.0-45.0) Monocytes (%) (Auto) % (1.0-10.0) Eosinophils (%) (Auto) % (0.0-3.0) Basophils (%) (Auto) % (0.0-2.0) Differential Total Cells Counted 100 Neutrophils % (Manual) 92 % (45-75) H Lymphocytes % (Manual) 2 % (20-45) L Monocytes % (Manual) 6 % (1-10) Eosinophils % (Manual) 0 % (0-3) Basophils % (Manual) 0 % (0-2) Band Neutrophils 0 % (0-8) Platelet Estimate Adequate Platelet Morphology Normal Hypochromasia 1+ Anisocytosis 1+ Sodium Level 144 MMOL/L (136-145) Potassium Level 3.4 MMOL/L (3.5-5.1) L Chloride Level 106 MMOL/L (98-107) Carbon Dioxide Level 34 MMOL/L (21-32) H Anion Gap 4 mmol/L (5-15) L Blood Urea Nitrogen 26 mg/dL (7-18) H Creatinine 0.8 MG/DL (0.55-1.30) Estimat Glomerular Filtration Rate mL/min (>60) Glucose Level 119 MG/DL (74-106) H Calcium Level 8.6 MG/DL (8.5-10.1) Magnesium Level 2.0 MG/DL (1.8-2.4) Total Bilirubin 0.3 MG/DL (0.2-1.0) Aspartate Amino Transf (AST/SGOT) 23 U/L (15-37) Alanine Aminotransferase (ALT/SGPT) 26 U/L (12-78) Alkaline Phosphatase 68 U/L (46-116) Pro-B-Type Natriuretic Peptide 4041 pg/mL (0-125) H Total Protein 7.0 G/DL (6.4-8.2) Albumin 2.8 G/DL (3.4-5.0) L Globulin 4.2 g/dL Albumin/Globulin Ratio 0.7 (1.0-2.7) L Current Medications Medications (Trade) Dose Ordered Sig/Aimee Route PRN Reason Start Time Stop Time Status Last Admin Dose Admin Acetaminophen (Tylenol) 650 mg Q6H PRN ORAL Mild Pain/Temp > 100.5 10/18/18 04:45 11/17/18 04:44 10/21/18 12:40 Diltiazem HCl (Cardizem) 30 mg EVERY 6 HOURS ORAL 10/21/18 14:00 11/20/18 13:59 10/24/18 06:25 Furosemide (Lasix) 20 mg DAILY IV 10/23/18 09:00 11/22/18 08:59 10/23/18 08:33 Heparin Sodium (Porcine) (Heparin 5000 units/ml) 5,000 units EVERY 12 HOURS SUBQ 10/18/18 21:00 11/17/18 20:59 10/24/18 10:00 Lisinopril (Prinivil) 20 mg DAILY ORAL 10/20/18 09:00 11/19/18 08:59 10/24/18 09:59 Lorazepam (Ativan 2mg/ml 1ml) 1 mg Q6H PRN IM anxiety 10/18/18 06:00 10/24/18 11:59 10/21/18 03:48 Mirtazapine (Remeron) 15 mg BEDTIME ORAL 10/18/18 21:00 11/17/18 20:59 10/23/18 21:29 Prednisone (predniSONE) 20 mg DAILY ORAL 10/24/18 09:45 11/23/18 09:44 10/24/18 09:59 Jessy Zabala MD Oct 24, 2018 10:44
[2018-10-24 12:00] VITALS: BP 127/65
--- NOTE | 2018-10-24 12:55 | General Progress Note ---
Assessment/Plan Problem List: (1) toxinc encephalopathy acute (2) Heroin abuse ICD Codes: F11.10 - Heroin abuse SNOMED: 720055595 (3) Opiate dependence, continuous ICD Codes: F11.20 - Opioid dependence, uncomplicated SNOMED: 935663698 Status: doing well, stable Assessment/Plan Ativan prn clonidine prn remeron 15mg po qhs Subjective Neurologic/Psychiatric: Reports: anxiety, depressed, emotional problems Allergies: Coded Allergies: No Known Allergies (Unverified , 10/17/18) Subjective the pt is stable the pt was "sleepy" today depressed Objective Last 24 Hour Vital Signs Date Time Temp Pulse Resp B/P (MAP) Pulse Ox O2 Delivery O2 Flow Rate FiO2 10/24/18 12:00 98.2 70 18 127/65 (85) 97 10/24/18 09:59 143/78 10/24/18 09:00 Nasal Cannula 4.0 10/24/18 08:00 97.9 77 18 143/78 (99) 99 10/24/18 07:42 85 10/24/18 07:37 Nasal Cannula 4.0 36 10/24/18 07:37 98 Nasal Cannula 4.0 36 10/24/18 06:25 91 144/81 10/24/18 04:00 91 10/24/18 00:00 92 10/24/18 00:00 98.0 95 24 144/81 (102) 97 10/24/18 00:00 4.0 10/24/18 00:00 Nasal Cannula 4.0 10/23/18 23:19 106 138/73 10/23/18 22:16 Nasal Cannula 4.0 36 10/23/18 22:15 100 Nasal Cannula 4.0 36 10/23/18 20:00 4.0 10/23/18 20:00 Nasal Cannula 4.0 10/23/18 20:00 89 10/23/18 20:00 98.1 87 24 138/73 (94) 97 10/23/18 17:47 90 145/80 10/23/18 16:00 4.0 10/23/18 16:00 90 10/23/18 16:00 Nasal Cannula 4.0 10/23/18 16:00 97.5 65 20 145/80 (101) 97 Intake and Output 10/23/18 10/24/18 19:00 07:00 Intake Total 1560 ml 240 ml Output Total 1650 ml Balance -90 ml 240 ml Intake Oral 1560 ml 240 ml Output Urine Total 1650 ml # Bowel Movements 1 Laboratory Tests 10/24/18 06:37: White Blood Count 9.1, Red Blood Count 4.44L, Hemoglobin 11.6L, Hematocrit 39.6L , Mean Corpuscular Volume 89, Mean Corpuscular Hemoglobin 26.0L, Mean Corpuscular Hemoglobin Concent 29.1L, Red Cell Distribution Width 17.3H, Platelet Count 177, Mean Platelet Volume 6.4L, Neutrophils (%) (Auto) , Lymphocytes (%) (Auto) , Monocytes (%) (Auto) , Eosinophils (%) (Auto) , Basophils (%) (Auto) , Differential Total Cells Counted 100, Neutrophils % ( Manual) 92H, Lymphocytes % (Manual) 2L, Monocytes % (Manual) 6, Eosinophils % ( Manual) 0, Basophils % (Manual) 0, Band Neutrophils 0, Platelet Estimate Adequate, Platelet Morphology Normal, Hypochromasia 1+, Anisocytosis 1+, Sodium Level 144, Potassium Level 3.4L, Chloride Level 106, Carbon Dioxide Level 34H, Anion Gap 4L, Blood Urea Nitrogen 26H, Creatinine 0.8, Estimat Glomerular Filtration Rate , Glucose Level 119H, Calcium Level 8.6, Magnesium Level 2.0, Total Bilirubin 0.3, Aspartate Amino Transf (AST/SGOT) 23, Alanine Aminotransferase (ALT/SGPT) 26, Alkaline Phosphatase 68, Pro-B-Type Natriuretic Peptide 4041H, Total Protein 7.0, Albumin 2.8L, Globulin 4.2, Albumin/Globulin Ratio 0.7L Height (Feet): 5 Height (Inches): 7.00 Weight (Pounds): 108 General Appearance: no apparent distress, alert, cachetic Neurologic: oriented x 3, responsive, depressed affect Spencer Langston MD Oct 24, 2018 12:55
--- NOTE | 2018-10-24 13:40 | NUR ---
*-* INSURANCE *-* UPDATED CLINICALS HAVE BEEN FAXED TO: [facility] GELY: YOGESH PLEASE FAX THE REVIEW/CLINICAL P- [phone] F- [phone]
--- NOTE | 2018-10-24 14:12 | NUR ---
RD ASSESSMENT & RECOMMENDATIONS SEE CARE ACTIVITY FOR COMPLETE ASSESSMENT DAILY ESTIMATED NEEDS: Needs based on Underweight, pulmonary, HIV+, 48kg 30-35 kcals/kg 1257-5198 total kcals 1-2 g protein/kg 48-96 g total protein 25-30 mL/kg 8324-8789 total fluid mLs NUTRITION DIAGNOSIS: 1) Increased kcal and protein needs r/t wasting, HIV and underweight status as evidenced by moderate to severe generalized muscle and fat wasting, BMI 16.6, pt is 72% of [place] Body Weight, HIV+. 2) Altered nutrition related lab values R/T clinical condition as evidenced by elev BNP (4041), critically elev pCO2 (*70.8). CURRENT DIET:KANG/ regular texture PO DIET RECOMMENDATIONS: LOW NA / texture as tolerated ADDITIONAL RECOMMENDATIONS: * Calibrated bed scale wts weekly * Monitor BG on solumedrol/ need for SSI, carb controlled diet, h/o DM * Check A1C- H/o DM * Add snacks TID * Monitor lytes daily, replete as needed- pt on lasix .
--- NOTE | 2018-10-24 15:38 | Cardiology Report ---
APPROVED REPORT EKG Measurement Heart [id number] NH 150P61 [id number] Sinus tachycardia with frequent premature ventricular complexes Right superior axis deviation Moderate voltage criteria for LVH, may be normal variant Abnormal ECG
--- NOTE | 2018-10-24 15:46 | NUR ---
*-* DISCHARGE PLANNING *-* PATIENT HAS BEEN REFERRED TO: [facility] P:[phone] F:[phone]
[2018-10-24 16:00] VITALS: BP 126/81
--- NOTE | 2018-10-24 16:45 | NUR ---
NURSE NOTES: A message left for Dr. Grewal to make him aware the patient does not have IV access. IV access has been attempted multiple times but has been unsuccessful. The patient is now refusing IV access. Patient resting in bed. He does not display any signs of distress or SOB.
--- NOTE | 2018-10-24 18:13 | Surgery Progress Note ---
Surgery Progress Note Subjective Additional Comments leukocytosis improved. off abx. labs noted / improving. abd pain resolved Objective Last 24 Hour Vital Signs Date Time Temp Pulse Resp B/P (MAP) Pulse Ox O2 Delivery O2 Flow Rate FiO2 10/24/18 17:17 92 126/81 10/24/18 16:13 92 10/24/18 16:00 98.2 94 18 126/81 (96) 97 10/24/18 13:27 70 127/65 10/24/18 12:00 98.2 70 18 127/65 (85) 97 10/24/18 11:57 80 10/24/18 09:59 143/78 10/24/18 09:00 Nasal Cannula 4.0 10/24/18 08:00 97.9 77 18 143/78 (99) 99 10/24/18 07:42 85 10/24/18 07:37 Nasal Cannula 4.0 36 10/24/18 07:37 98 Nasal Cannula 4.0 36 10/24/18 06:25 91 144/81 10/24/18 04:00 91 10/24/18 00:00 92 10/24/18 00:00 98.0 95 24 144/81 (102) 97 10/24/18 00:00 4.0 10/24/18 00:00 Nasal Cannula 4.0 10/23/18 23:19 106 138/73 10/23/18 22:16 Nasal Cannula 4.0 36 10/23/18 22:15 100 Nasal Cannula 4.0 36 10/23/18 20:00 4.0 10/23/18 20:00 Nasal Cannula 4.0 10/23/18 20:00 89 10/23/18 20:00 98.1 87 24 138/73 (94) 97 I&O Intake and Output 10/23/18 10/24/18 19:00 07:00 Intake Total 1560 ml 240 ml Output Total 1650 ml Balance -90 ml 240 ml Intake Oral 1560 ml 240 ml Output Urine Total 1650 ml # Bowel Movements 1 Laboratory Tests Test 10/24/18 06:37 White Blood Count 9.1 K/UL (4.8-10.8) Red Blood Count 4.44 M/UL (4.70-6.10) L Hemoglobin 11.6 G/DL (14.2-18.0) L Hematocrit 39.6 % (42.0-52.0) L Mean Corpuscular Volume 89 FL (80-99) Mean Corpuscular Hemoglobin 26.0 PG (27.0-31.0) L Mean Corpuscular Hemoglobin Concent 29.1 G/DL (32.0-36.0) L Red Cell Distribution Width 17.3 % (11.6-14.8) H Platelet Count 177 K/UL (150-450) Mean Platelet Volume 6.4 FL (6.5-10.1) L Neutrophils (%) (Auto) % (45.0-75.0) Lymphocytes (%) (Auto) % (20.0-45.0) Monocytes (%) (Auto) % (1.0-10.0) Eosinophils (%) (Auto) % (0.0-3.0) Basophils (%) (Auto) % (0.0-2.0) Differential Total Cells Counted 100 Neutrophils % (Manual) 92 % (45-75) H Lymphocytes % (Manual) 2 % (20-45) L Monocytes % (Manual) 6 % (1-10) Eosinophils % (Manual) 0 % (0-3) Basophils % (Manual) 0 % (0-2) Band Neutrophils 0 % (0-8) Platelet Estimate Adequate Platelet Morphology Normal Hypochromasia 1+ Anisocytosis 1+ Sodium Level 144 MMOL/L (136-145) Potassium Level 3.4 MMOL/L (3.5-5.1) L Chloride Level 106 MMOL/L (98-107) Carbon Dioxide Level 34 MMOL/L (21-32) H Anion Gap 4 mmol/L (5-15) L Blood Urea Nitrogen 26 mg/dL (7-18) H Creatinine 0.8 MG/DL (0.55-1.30) Estimat Glomerular Filtration Rate mL/min (>60) Glucose Level 119 MG/DL (74-106) H Calcium Level 8.6 MG/DL (8.5-10.1) Magnesium Level 2.0 MG/DL (1.8-2.4) Total Bilirubin 0.3 MG/DL (0.2-1.0) Aspartate Amino Transf (AST/SGOT) 23 U/L (15-37) Alanine Aminotransferase (ALT/SGPT) 26 U/L (12-78) Alkaline Phosphatase 68 U/L (46-116) Pro-B-Type Natriuretic Peptide 4041 pg/mL (0-125) H Total Protein 7.0 G/DL (6.4-8.2) Albumin 2.8 G/DL (3.4-5.0) L Globulin 4.2 g/dL Albumin/Globulin Ratio 0.7 (1.0-2.7) L Plan Problems: (1) Abdominal pain Assessment & Plan: states improved. tolerating diet. passing flatus abdominal exam benign lft's okay leukocytosis likely from steroids will monitor clinically for now. (2) Venous stasis ulcer Assessment & Plan: Patient presents with multiple linear chronic wounds to his lower extremities and some areas of ulcerations. wounds seem in different stages of healing and most traumatic in nature some likely lower extremity venous stasis ulcer no active bleeding. no signs of active infection. no cellulitis. no edema. minimal tenderness poor hygiene Tx Plan: wash right and left left/feet daily with skin wipes apply hyrogel and skin protectant to legs daily place abd and wrap with kerlix daily thank you Jarred Hinson Oct 24, 2018 18:13
--- NOTE | 2018-10-24 19:30 | NUR ---
HAND-OFF: Report given to ANN Riley.
--- NOTE | 2018-10-24 19:31 | NUR ---
NURSE NOTES: Received report from Martín Rosas RN. Patient in bed AAO X4 with HOB elevated at semi fowlers, no complaints of acute pain or distress at this time. Kept clean, dry, and comfortable in bed. No IV line present and MD aware, Meds given PO. Safety precaution in place; siderails x3 up, call light within reach, bed in lowest position, brakes and alarm on at all times. placed on continuous cardiac monitoring per protocol and cardiac history. Needs and wants anticipated and attended, will continue plan of care and monitor for any changes noted
[2018-10-24 20:00] VITALS: BP 133/74
[2018-10-25] VITALS: BP 145/70
[2018-10-25] MEDS: dilTIAZem HCl 30mg tab ORAL SCH ×4 (00:23→17:08)
--- NOTE | 2018-10-25 02:45 | Progress Note ---
DATE: 10/24/2018 CARDIOLOGY PROGRESS NOTE SUBJECTIVE: Less shortness of breath. No chest pain. PHYSICAL EXAMINATION: VITAL SIGNS: Blood pressure 144/81, pulse 91, respiratory rate 24. LUNGS: Diminished breath sounds. Few rhonchi. HEART: Regular rhythm rate. Normal S1, S2. One monitored sinus with atrial ectopy. ABDOMEN: Soft, no edema. EXTREMITIES: Lower extremity ulcers improved. LABORATORY AND DIAGNOSTIC DATA: White count is 9.1, hemoglobin 11.6. Sodium 144, potassium 3.4, bicarbonate 34, BUN 26, creatinine 0.8. Pro natriuretic peptide remains around 4000. Magnesium 2.0. IMPRESSION: 1. Chronic obstructive pulmonary disease exacerbation improved. 2. Community-acquired pneumonia resolving. 3. Compensatory metabolic alkalosis improved. 4. Acute on chronic respiratory acidosis, mostly compensated. 5. Peripheral artery disease with leg ulcers improving slowly. 6. Paroxysmal atrial fibrillation and paroxysmal atrial ectopy. 7. Acute on chronic diastolic congestive heart failure improved. PLAN: 1. Continue current regimen with titration based on clinical parameters. 2. Acetazolamide has been discontinued. 3. Diuretics have been changed to oral dosing. 4. Antimicrobials complete and steroid tapers in progress. 5. Physical and occupational therapy and I have been working with the patient in anticipation of discharge with disposition to follow. Justus Grewal M.D. DR: CATHERINE JOB#: [id number] CC:
--- NOTE | 2018-10-25 03:21 | NUR ---
NURSE NOTES: patient in bed asleep with no complaints of pain or discomfort. Will continue to monitor
[2018-10-25 04:00] VITALS: BP 155/84
--- NOTE | 2018-10-25 06:14 | NUR ---
NURSE NOTES: Offered to give AM care, patient refused; explained risks and benefits but still refused. Will continue to monitor
--- NOTE | 2018-10-25 07:01 | NUR ---
HAND-OFF: Report given to Martín Rosas RN. Patient in bed AAO x3 with no complaints of pain at this time, endorsed plan of care.
--- NOTE | 2018-10-25 07:27 | NUR ---
NURSE NOTES: I received the patient resting in bed. Patient alert and oriented x4. Bed in the lowest position and call light within reach. Patient does not display any signs of distress or SOB. I will continue to monitor the patient and implement care.
[2018-10-25 08:00] VITALS: BP 116/79
--- NOTE | 2018-10-25 08:06 | General Progress Note ---
Assessment/Plan Problem List: (1) Hypercapnia ICD Codes: R06.89 - Other abnormalities of breathing SNOMED: 83532810 (2) Opiate dependence, continuous ICD Codes: F11.20 - Opioid dependence, uncomplicated SNOMED: 108639648 (3) CHF (congestive heart failure) ICD Codes: I50.9 - CHF (congestive heart failure) SNOMED: 52793054 Qualifiers: Qualified Codes: I50.9 - Heart failure, unspecified (4) Atrial flutter ICD Codes: I48.92 - Unspecified atrial flutter SNOMED: 4715367 (5) Diabetes mellitus ICD Codes: E11.9 - Type 2 diabetes mellitus without complications SNOMED: 29683383 (6) COPD exacerbation ICD Codes: J44.1 - Chronic obstructive pulmonary disease with (acute) exacerbation SNOMED: 080149095, 015387068 (7) toxinc encephalopathy acute Status: stable, progressing Assessment/Plan cont current rx follow up abx steroids- wean per pulm. now on po diuresis prn monitor labs resp rx abx dvt/stress ulcer prophylaxis monitor cxr- improving compliance stressed dc planning to snf Subjective ROS Limited/Unobtainable: No Constitutional: Reports: malaise, weakness HEENT: Reports: no symptoms Cardiovascular: Reports: no symptoms Respiratory: Reports: cough, shortness of breath Gastrointestinal/Abdominal: Reports: no symptoms Genitourinary: Reports: no symptoms Neurologic/Psychiatric: Reports: anxiety Endocrine: Reports: no symptoms Hematologic/Lymphatic: Reports: no symptoms Allergies: Coded Allergies: No Known Allergies (Unverified , 10/17/18) All Systems: reviewed and negative except above Subjective no events. resting. refusing bipap. denies cp/sob. no complaints. Objective Last 24 Hour Vital Signs Date Time Temp Pulse Resp B/P (MAP) Pulse Ox O2 Delivery O2 Flow Rate FiO2 10/25/18 07:32 Nasal Cannula 4.0 36 10/25/18 07:32 93 Nasal Cannula 4.0 36 10/25/18 05:30 86 155/84 10/25/18 04:00 96.2 86 18 155/84 (107) 94 10/25/18 04:00 106 10/25/18 00:23 93 148/70 10/25/18 00:00 102 10/25/18 00:00 97.3 93 17 145/70 (95) 97 2/19/19 21:00 Nasal Cannula 4.0 10/24/18 20:12 96 Nasal Cannula 3.0 32 10/24/18 20:12 Nasal Cannula 3.0 32 10/24/18 20:00 98.1 94 18 133/74 (93) 97 10/24/18 20:00 100 10/24/18 17:17 92 126/81 10/24/18 16:13 92 10/24/18 16:00 98.2 94 18 126/81 (96) 97 10/24/18 13:27 70 127/65 10/24/18 12:00 98.2 70 18 127/65 (85) 97 10/24/18 11:57 80 10/24/18 09:59 143/78 10/24/18 09:00 Nasal Cannula 4.0 Intake and Output 10/24/18 10/25/18 19:00 07:00 Intake Total 720 ml Output Total 500 ml Balance 220 ml Intake Oral 720 ml Output Urine Total 500 ml # Voids 3 Height (Feet): 5 Height (Inches): 7.00 Weight (Pounds): 103 Objective General Appearance: WD/WN, thin Neck: supple Cardiovascular: normal rate, regular rhythm Respiratory/Chest: chest wall non-tender, lungs clear, normal breath sounds, no respiratory distress Abdomen: normal bowel sounds, non tender, soft, no organomegaly Edema: no edema noted Arm (L), no edema noted Arm (R), no edema noted Leg (L), no edema noted Leg (R), no edema noted Pedal (L), no edema noted Pedal (R), no edema noted Generalized Varun Stewart MD Oct 25, 2018 08:06
[2018-10-25] MEDS: Lisinopril 20mg tab ORAL SCH (09:04)
[2018-10-25] MEDS: Heparin 5000 units/ml inj SUBQ SCH ×2 (09:05→21:06)
--- NOTE | 2018-10-25 09:20 | Pulmonology Progress Note ---
Assessment/Plan Assessment/Plan 1. Acute respiratory failure with hypercapnia. Improved 2. HIV. 3. COPD. 4. CHF. DISCUSSION: Continue nocturnal BiPAP ABG improved; willdc Diamox Changed to PO steroids Continue diuresis, antibiotics, pulmonary hygiene and steroids. I will continue to follow carefully. Discussed with nursing staff. Subjective Interval Events: None new Constitutional: Reports: no symptoms HEENT: Repors: no symptoms Respiratory: Reports: no symptoms Cardiovascular: Reports: no symptoms Gastrointestinal/Abdominal: Reports: no symptoms Genitourinary: Reports: no symptoms Allergies: Coded Allergies: No Known Allergies (Unverified , 10/17/18) Objective Last 24 Hour Vital Signs Date Time Temp Pulse Resp B/P (MAP) Pulse Ox O2 Delivery O2 Flow Rate FiO2 10/25/18 09:04 116/79 10/25/18 08:00 98.1 95 18 116/79 (91) 93 10/25/18 07:32 Nasal Cannula 4.0 36 10/25/18 07:32 93 Nasal Cannula 4.0 36 10/25/18 05:30 86 155/84 10/25/18 04:00 96.2 86 18 155/84 (107) 94 10/25/18 04:00 106 10/25/18 00:23 93 148/70 10/25/18 00:00 102 10/25/18 00:00 97.3 93 17 145/70 (95) 97 10/24/18 21:00 Nasal Cannula 4.0 10/24/18 20:12 96 Nasal Cannula 3.0 32 10/24/18 20:12 Nasal Cannula 3.0 32 10/24/18 20:00 98.1 94 18 133/74 (93) 97 10/24/18 20:00 100 10/24/18 17:17 92 126/81 10/24/18 16:13 92 10/24/18 16:00 98.2 94 18 126/81 (96) 97 10/24/18 13:27 70 127/65 10/24/18 12:00 98.2 70 18 127/65 (85) 97 10/24/18 11:57 80 10/24/18 09:59 143/78 Intake and Output 10/24/18 10/25/18 19:00 07:00 Intake Total 720 ml Output Total 500 ml Balance 220 ml Intake Oral 720 ml Output Urine Total 500 ml # Voids 3 General Appearance: no acute distress HEENT: normocephalic Respiratory/Chest: chest wall non-tender, lungs clear Cardiovascular: normal peripheral pulses, normal rate Abdomen: normal bowel sounds Current Medications Medications (Trade) Dose Ordered Sig/Aimee Route PRN Reason Start Time Stop Time Status Last Admin Dose Admin Acetaminophen (Tylenol) 650 mg Q6H PRN ORAL Mild Pain/Temp > 100.5 10/18/18 04:45 11/17/18 04:44 10/25/18 05:30 Diltiazem HCl (Cardizem) 30 mg EVERY 6 HOURS ORAL 10/21/18 14:00 11/20/18 13:59 10/25/18 05:30 Heparin Sodium (Porcine) (Heparin 5000 units/ml) 5,000 units EVERY 12 HOURS SUBQ 10/18/18 21:00 11/17/18 20:59 10/25/18 09:05 Lisinopril (Prinivil) 20 mg DAILY ORAL 10/20/18 09:00 11/19/18 08:59 10/25/18 09:04 Mirtazapine (Remeron) 15 mg BEDTIME ORAL 10/18/18 21:00 11/17/18 20:59 10/24/18 21:21 Prednisone (predniSONE) 20 mg DAILY ORAL 10/24/18 09:45 11/23/18 09:44 10/25/18 09:04 Abhijit Morris MD Oct 25, 2018 09:20
--- NOTE | 2018-10-25 09:48 | NUR ---
CASE MANAGEMENT:REVIEW 10/25/18 SI: COPD EXACERBATION PNA. AC/CHR CHF 98.1 95 18 116/79 93% ON 4L/NC NO LABS FOR TODAY IS: PREDNISONE PO QD CARDIZEM PO Q6 LISINOPRIL PO QD HEPARIN SQ Q12 REMERON PO QHS : TELEMETRY STATUS PLAN: FROM HOME BUT NEEDS SNF FOR PHYSICAL THERAPY UNABLE TO STAND UP INDEPENDENTLY. AMBULATING 15-20 FEET SEEKING SNF PLACEMENT AT THIS TIME FOR SHORT STAY
--- NOTE | 2018-10-25 10:24 | Infectious Diseases Prog Note ---
Assessment/Plan Assessment/Plan antibiotics : none A 1. pneumonia s/p rx 2. COPD exacerbation 3. CHF 4. diabetes mellitus 5. anemia P 1. observe off antibiotics Subjective Constitutional: Denies: fever, chills Respiratory: Reports: shortness of breath, dry cough Gastrointestinal/Abdominal: Denies: nausea, vomiting, diarrhea Musculoskeletal: Denies: pain Allergies: Coded Allergies: No Known Allergies (Unverified , 10/17/18) Objective Vital Signs Last 24 Hour Vital Signs Date Time Temp Pulse Resp B/P (MAP) Pulse Ox O2 Delivery O2 Flow Rate FiO2 10/25/18 09:04 116/79 10/25/18 08:00 98.1 95 18 116/79 (91) 93 10/25/18 07:32 Nasal Cannula 4.0 36 10/25/18 07:32 93 Nasal Cannula 4.0 36 10/25/18 05:30 86 155/84 10/25/18 04:00 96.2 86 18 155/84 (107) 94 10/25/18 04:00 106 10/25/18 00:23 93 148/70 10/25/18 00:00 102 10/25/18 00:00 97.3 93 17 145/70 (95) 97 10/24/18 21:00 Nasal Cannula 4.0 10/24/18 20:12 96 Nasal Cannula 3.0 32 10/24/18 20:12 Nasal Cannula 3.0 32 10/24/18 20:00 98.1 94 18 133/74 (93) 97 10/24/18 20:00 100 10/24/18 17:17 92 126/81 10/24/18 16:13 92 10/24/18 16:00 98.2 94 18 126/81 (96) 97 10/24/18 13:27 70 127/65 10/24/18 12:00 98.2 70 18 127/65 (85) 97 10/24/18 11:57 80 Height (Feet): 5 Height (Inches): 7.00 Weight (Pounds): 103 Respiratory/Chest: lungs clear Cardiovascular: normal rate, regular rhythm, no gallop/murmur Abdomen: soft, non tender Extremities: no edema Current Medications Medications (Trade) Dose Ordered Sig/Aimee Route PRN Reason Start Time Stop Time Status Last Admin Dose Admin Acetaminophen (Tylenol) 650 mg Q6H PRN ORAL Mild Pain/Temp > 100.5 10/18/18 04:45 11/17/18 04:44 10/25/18 05:30 Diltiazem HCl (Cardizem) 30 mg EVERY 6 HOURS ORAL 10/21/18 14:00 11/20/18 13:59 10/25/18 05:30 Heparin Sodium (Porcine) (Heparin 5000 units/ml) 5,000 units EVERY 12 HOURS SUBQ 10/18/18 21:00 11/17/18 20:59 10/25/18 09:05 Lisinopril (Prinivil) 20 mg DAILY ORAL 10/20/18 09:00 11/19/18 08:59 10/25/18 09:04 Mirtazapine (Remeron) 15 mg BEDTIME ORAL 10/18/18 21:00 11/17/18 20:59 10/24/18 21:21 Prednisone (predniSONE) 20 mg DAILY ORAL 10/24/18 09:45 11/23/18 09:44 10/25/18 09:04 Jessy Zabala MD Oct 25, 2018 10:24
[2018-10-25 12:00] VITALS: BP 122/86
--- NOTE | 2018-10-25 12:59 | General Progress Note ---
Assessment/Plan Problem List: (1) toxinc encephalopathy acute (2) Heroin abuse ICD Codes: F11.10 - Heroin abuse SNOMED: 692041437 (3) Opiate dependence, continuous ICD Codes: F11.20 - Opioid dependence, uncomplicated SNOMED: 441748185 Status: stable Assessment/Plan Ativan prn Remeron 15mg po qhs Provided ro/st Subjective Constitutional: Reports: malaise, weakness Neurologic/Psychiatric: Reports: anxiety, depressed Allergies: Coded Allergies: No Known Allergies (Unverified , 10/17/18) Subjective the pt cont to be depressed and anxious. the pt is withdrawn and not engaged Objective Last 24 Hour Vital Signs Date Time Temp Pulse Resp B/P (MAP) Pulse Ox O2 Delivery O2 Flow Rate FiO2 10/25/18 12:00 98.0 116 20 122/86 (98) 93 10/25/18 09:04 116/79 10/25/18 09:00 Nasal Cannula 4.0 10/25/18 08:00 98.1 95 18 116/79 (91) 93 10/25/18 07:32 Nasal Cannula 4.0 36 10/25/18 07:32 93 Nasal Cannula 4.0 36 10/25/18 05:30 86 155/84 10/25/18 04:00 96.2 86 18 155/84 (107) 94 10/25/18 04:00 106 10/25/18 00:23 93 148/70 10/25/18 00:00 102 10/25/18 00:00 97.3 93 17 145/70 (95) 97 10/24/18 21:00 Nasal Cannula 4.0 10/24/18 20:12 96 Nasal Cannula 3.0 32 10/24/18 20:12 Nasal Cannula 3.0 32 10/24/18 20:00 98.1 94 18 133/74 (93) 97 10/24/18 20:00 100 10/24/18 17:17 92 126/81 10/24/18 16:13 92 10/24/18 16:00 98.2 94 18 126/81 (96) 97 10/24/18 13:27 70 127/65 Intake and Output 10/24/18 10/25/18 19:00 07:00 Intake Total 720 ml Output Total 500 ml Balance 220 ml Intake Oral 720 ml Output Urine Total 500 ml # Voids 3 Height (Feet): 5 Height (Inches): 7.00 Weight (Pounds): 103 General Appearance: alert, cachetic Neurologic: oriented x 3, responsive, depressed affect Spencer Langston MD Oct 25, 2018 12:59
[2018-10-25] MEDS: Ipratropium 0.02% Inh Soln 2.5ml UD HHN PRN (13:01)
[2018-10-25] MEDS: Albuterol ud Inhalation HHN PRN (13:01)
--- NOTE | 2018-10-25 14:05 | Surgery Progress Note ---
Surgery Progress Note Subjective Additional Comments transition to oral meds; d/c planning Objective Last 24 Hour Vital Signs Date Time Temp Pulse Resp B/P (MAP) Pulse Ox O2 Delivery O2 Flow Rate FiO2 10/25/18 13:35 68 122/86 10/25/18 13:13 68 18 99 Nasal Cannula 5.0 40 10/25/18 13:03 90 22 89 Nasal Cannula 5.0 40 10/25/18 12:00 98.0 116 20 122/86 (98) 93 10/25/18 09:04 116/79 10/25/18 09:00 Nasal Cannula 4.0 10/25/18 08:00 98.1 95 18 116/79 (91) 93 10/25/18 07:32 Nasal Cannula 4.0 36 10/25/18 07:32 93 Nasal Cannula 4.0 36 10/25/18 07:30 95 10/25/18 05:30 86 155/84 10/25/18 04:00 96.2 86 18 155/84 (107) 94 10/25/18 04:00 106 10/25/18 00:23 93 148/70 10/25/18 00:00 102 10/25/18 00:00 97.3 93 17 145/70 (95) 97 10/24/18 21:00 Nasal Cannula 4.0 10/24/18 20:12 96 Nasal Cannula 3.0 32 10/24/18 20:12 Nasal Cannula 3.0 32 10/24/18 20:00 98.1 94 18 133/74 (93) 97 10/24/18 20:00 100 10/24/18 17:17 92 126/81 10/24/18 16:13 92 10/24/18 16:00 98.2 94 18 126/81 (96) 97 I&O Intake and Output 10/24/18 10/25/18 19:00 07:00 Intake Total 720 ml Output Total 500 ml Balance 220 ml Intake Oral 720 ml Output Urine Total 500 ml # Voids 3 Dressing: other Wound: other Drains: other Cardiovascular: RSR Respiratory: clear, decreased breath sounds Abdomen: soft, present bowel sounds, non-distended Extremities: other Plan Problems: (1) Abdominal pain Assessment & Plan: states improved. tolerating diet. passing flatus abdominal exam benign lft's okay leukocytosis likely from steroids will monitor clinically for now. (2) Venous stasis ulcer Assessment & Plan: Patient presents with multiple linear chronic wounds to his lower extremities and some areas of ulcerations. wounds seem in different stages of healing and most traumatic in nature some likely lower extremity venous stasis ulcer no active bleeding. no signs of active infection. no cellulitis. no edema. minimal tenderness poor hygiene Tx Plan: wash right and left left/feet daily with skin wipes apply hyrogel and skin protectant to legs daily place abd and wrap with kerlix daily thank you Jarred Hinson Oct 25, 2018 14:05
[2018-10-25 16:00] VITALS: BP 159/80
--- NOTE | 2018-10-25 16:15 | NUR ---
HAND-OFF: Report given to ANN Kruger.
--- NOTE | 2018-10-25 16:18 | Cardiology Report ---
APPROVED REPORT EKG Measurement Heart [id number] AL 156P47 [id number] Sinus tachycardia Right superior axis deviation Possible Right ventricular hypertrophy Nonspecific ST and T wave abnormality Abnormal ECG
--- NOTE | 2018-10-25 16:36 | NUR ---
*-* INSURANCE *-* UPDATED CLINICALS & REVIEW HAVE BEEN FAXED TO: [facility] [place]: YOGESH PLEASE FAX THE REVIEW/CLINICAL P- [phone] F- [phone]
--- NOTE | 2018-10-25 19:19 | NUR ---
HAND-OFF: Report given to BABAK JUAREZ.
--- NOTE | 2018-10-25 19:20 | NUR ---
NURSE NOTES: Received pt from ANN Kruger. Pt asleep. Bed in lowest position, side rails up, and call light within reach. Will continue with plan of care.
[2018-10-25 20:00] VITALS: BP 143/91
[2018-10-26] VITALS: BP 122/86
[2018-10-26] MEDS: dilTIAZem HCl 30mg tab ORAL SCH ×5 (00:06→23:55)
[2018-10-26] MEDS: Albuterol ud Inhalation HHN PRN ×2 (03:39→15:28)
[2018-10-26 04:00] VITALS: BP 124/83
--- NOTE | 2018-10-26 07:30 | NUR ---
HAND-OFF: Report given to ANN Hoover.
--- NOTE | 2018-10-26 07:38 | NUR ---
NURSE NOTES: Received report from ANN Hoffmann. Patient in bed resting, no active s/s cardiac, respiratory distress noticed at this time, denies pain at this time. ST with HR 107, patient on 4L oxygen via NC. Urinal at easy reach. Endorsed no IV site and per Dr. Grewal, no need to put another heplock. Bed in lowest position, side rails upx2, call light within reach. Will continue to monitor.
[2018-10-26 08:00] VITALS: BP 116/70
[2018-10-26] MEDS: Heparin 5000 units/ml inj SUBQ SCH ×2 (08:13→21:35)
[2018-10-26] MEDS: Lisinopril 20mg tab ORAL SCH (08:13)
--- NOTE | 2018-10-26 09:05 | NUR ---
NURSE NOTES: Dressing applied on bilateral lower legs as Dr. Hinson ordered. Stage 2 wound found on sacral area by 2.5cm x2.5 cm. Wound cleaned with water and soap, skin protectant applied, Optifoam applied. Called [facility]. Will turn patient every 2 hour and change dressing accordingly. Addendum: 10/26/18 at 1956 by TRENTON GOODMAN RN Redness found on bilateral heels, optifoam applied and float off the pressure.
--- NOTE | 2018-10-26 10:08 | Pulmonology Progress Note ---
Assessment/Plan Assessment/Plan 1. Acute respiratory failure with hypercapnia. Improved 2. HIV. 3. COPD. 4. CHF. DISCUSSION: Continue nocturnal BiPAP ABG improved; willdc Diamox Changed to PO steroids Added breathing treatments Continue diuresis, antibiotics, pulmonary hygiene and steroids. I will continue to follow carefully. Discussed with nursing staff. Subjective Interval Events: No new events Constitutional: Reports: no symptoms HEENT: Repors: no symptoms Respiratory: Reports: no symptoms Cardiovascular: Reports: no symptoms Allergies: Coded Allergies: No Known Allergies (Unverified , 10/17/18) Objective Last 24 Hour Vital Signs Date Time Temp Pulse Resp B/P (MAP) Pulse Ox O2 Delivery O2 Flow Rate FiO2 10/26/18 09:00 Nasal Cannula 4.0 10/26/18 08:13 116/70 10/26/18 08:00 98.2 88 20 116/70 (85) 94 10/26/18 06:20 107 124/83 10/26/18 04:00 100 10/26/18 04:00 97.8 100 18 124/83 (97) 98 10/26/18 03:49 84 20 98 Nasal Cannula 3.0 32 10/26/18 03:40 78 24 Nasal Cannula 3.0 32 10/26/18 03:39 78 24 93 Nasal Cannula 3.0 32 10/26/18 00:06 106 115/63 10/26/18 00:00 98.0 106 20 122/86 (98) 93 10/26/18 00:00 106 10/25/18 21:00 Nasal Cannula 4.0 10/25/18 20:41 Nasal Cannula 3.0 32 10/25/18 20:41 98 Nasal Cannula 3.0 32 10/25/18 20:00 97.5 95 18 143/91 (108) 97 10/25/18 20:00 95 10/25/18 17:08 70 124/86 10/25/18 16:00 98.0 112 20 159/80 (106) 93 10/25/18 15:17 111 10/25/18 13:35 68 122/86 10/25/18 13:13 68 18 99 Nasal Cannula 5.0 40 10/25/18 13:03 90 22 89 Nasal Cannula 5.0 40 10/25/18 12:00 98.0 116 20 122/86 (98) 93 10/25/18 11:50 112 Intake and Output 10/25/18 10/26/18 19:00 07:00 Intake Total 120 ml Output Total 1300 ml Balance -1180 ml Intake Oral 120 ml Output Urine Total 1300 ml # Voids 2 # Bowel Movements 1 1 General Appearance: no acute distress HEENT: normocephalic Respiratory/Chest: chest wall non-tender, lungs clear Cardiovascular: normal peripheral pulses, normal rate Current Medications Medications (Trade) Dose Ordered Sig/Aimee Route PRN Reason Start Time Stop Time Status Last Admin Dose Admin Acetaminophen (Tylenol) 650 mg Q6H PRN ORAL Mild Pain/Temp > 100.5 10/18/18 04:45 11/17/18 04:44 10/26/18 03:39 Albuterol Sulfate (Proventil) 2.5 mg Q6H PRN HHN shortness of breath 10/25/18 12:30 10/30/18 12:29 10/26/18 03:39 Diltiazem HCl (Cardizem) 30 mg EVERY 6 HOURS ORAL 10/21/18 14:00 11/20/18 13:59 10/26/18 06:20 Heparin Sodium (Porcine) (Heparin 5000 units/ml) 5,000 units EVERY 12 HOURS SUBQ 10/18/18 21:00 11/17/18 20:59 10/26/18 08:13 Ipratropium [place] (Atrovent) 500 mcg Q4H PRN HHN Shortness of Breath 10/25/18 12:30 10/30/18 12:29 10/25/18 13:01 Lisinopril (Prinivil) 20 mg DAILY ORAL 10/20/18 09:00 11/19/18 08:59 10/26/18 08:13 Mirtazapine (Remeron) 15 mg BEDTIME ORAL 10/18/18 21:00 11/17/18 20:59 10/25/18 21:06 Prednisone (predniSONE) 20 mg DAILY ORAL 10/24/18 09:45 11/23/18 09:44 10/26/18 08:13 Abhijit Morris MD Oct 26, 2018 10:08
--- NOTE | 2018-10-26 10:15 | NUR ---
NURSE NOTES: WOUND CARE NOTES:Pt presents with non-blanchable erythema buttocks extending into bilat ischial regions. Small partial thickness wound noted to sacrococcygeal area(L)0.5cm x (W)0.6cm. Wound bed moist and viable. Sacral area tender when minimally palpated. Pt is lean and bony prominence at sacrum protrudes.Non-blanchable erythema noted to bilat heels. Pt denied tenderness when heels minimally palpated. Pt educated of potential risks for further Skin breakdown and encouraged to reposition frequently .Instructed to off-lift buttocks while repositioning and to avoid sliding against bed linens.Instructed to keep heels floated with pillow. Pt demonstrated ability to self reposition as instructed. Recommendations:Apply Moisture barrier paste to buttocks.Cover with Optifoam drsg.Change every 3 days and prn. Apply Moisture barrier Paste to areas around drsg including both ischial regions. Apply Cavilon Skin Barrier to both heels .Cover with Optifoam drsgs .Change every 7 days and prn. Support surface mattress. Encourage and assist with repositioning at least every 2hours or as tolerated. Off-load heels with pillow.
--- NOTE | 2018-10-26 10:24 | NUR ---
DISCHARGE PLANNING SILK CONDITIONER SPOKE WITH INSTALLER TECHNICIAN,LASHAUN, AT [facility]. SHE IS WILLING TO ACCEPT PATIENT TO ROOM 11A MESSAGE LEFT FOR [facility] REGARDING THE ABOVE
--- NOTE | 2018-10-26 11:06 | General Progress Note ---
Assessment/Plan Problem List: (1) toxinc encephalopathy acute (2) Heroin abuse ICD Codes: F11.10 - Heroin abuse SNOMED: 385744117 (3) Opiate dependence, continuous ICD Codes: F11.20 - Opioid dependence, uncomplicated SNOMED: 410379644 Status: not improved, unchanged Assessment/Plan Ativan prn Remeron 15mg po qhs Provided ro/st Lexapro 10mg po qam Subjective Neurologic/Psychiatric: Reports: anxiety, depressed, emotional problems Allergies: Coded Allergies: No Known Allergies (Unverified , 10/17/18) Subjective the pt cont to be depressed and anxious. "please give me something. I'm very depressed." the pt was more alert and engaged has insomnia Objective Last 24 Hour Vital Signs Date Time Temp Pulse Resp B/P (MAP) Pulse Ox O2 Delivery O2 Flow Rate FiO2 10/26/18 09:00 Nasal Cannula 4.0 10/26/18 08:13 116/70 10/26/18 08:00 120 10/26/18 08:00 98.2 88 20 116/70 (85) 94 10/26/18 06:20 107 124/83 10/26/18 04:00 100 10/26/18 04:00 97.8 100 18 124/83 (97) 98 10/26/18 03:49 84 20 98 Nasal Cannula 3.0 32 10/26/18 03:40 78 24 Nasal Cannula 3.0 32 10/26/18 03:39 78 24 93 Nasal Cannula 3.0 32 10/26/18 00:06 106 115/63 10/26/18 00:00 98.0 106 20 122/86 (98) 93 10/26/18 00:00 106 10/25/18 21:00 Nasal Cannula 4.0 10/25/18 20:41 Nasal Cannula 3.0 32 10/25/18 20:41 98 Nasal Cannula 3.0 32 10/25/18 20:00 97.5 95 18 143/91 (108) 97 10/25/18 20:00 95 10/25/18 17:08 70 124/86 10/25/18 16:00 98.0 112 20 159/80 (106) 93 10/25/18 15:17 111 10/25/18 13:35 68 122/86 10/25/18 13:13 68 18 99 Nasal Cannula 5.0 40 10/25/18 13:03 90 22 89 Nasal Cannula 5.0 40 10/25/18 12:00 98.0 116 20 122/86 (98) 93 10/25/18 11:50 112 Intake and Output 10/25/18 10/26/18 19:00 07:00 Intake Total 120 ml Output Total 1300 ml Balance -1180 ml Intake Oral 120 ml Output Urine Total 1300 ml # Voids 2 # Bowel Movements 1 1 Height (Feet): 5 Height (Inches): 7.00 Weight (Pounds): 105 General Appearance: WD/WN, no apparent distress, alert, cachetic Neurologic: oriented x 3, responsive, depressed affect Spencer Langston MD Oct 26, 2018 11:06
[2018-10-26] MEDS: Ipratropium 0.02% Inh Soln 2.5ml UD HHN PRN ×2 (11:21→20:42)
[2018-10-26 11:53] LABS: HEMATOCRIT 38.2 % (42.0-52.0); HEMOGLOBIN 11.3 G/DL (14.2-18.0); MEAN CORPUSCULAR VOLUME 89 FL (80-99); PLATELET COUNT 137 K/UL (150-450); RED BLOOD COUNT 4.29 M/UL (4.70-6.10); RED CELL DISTRIBUTION WIDTH 17.5 % (11.6-14.8); WHITE BLOOD COUNT 11.9 K/UL (4.8-10.8)
[2018-10-26 12:00] VITALS: BP 131/78
[2018-10-26 12:38] LABS: ALANINE AMINOTRANSFERASE 46 U/L (12-78); ALBUMIN 2.5 G/DL (3.4-5.0); ALBUMIN/GLOBULIN RATIO 0.7 (1.0-2.7); ALKALINE PHOSPHATASE 68 U/L (46-116); ANION GAP 2 mmol/L (5-15); ASPARTATE AMINO TRANSFERASE 52 U/L (15-37); BILIRUBIN,TOTAL 0.3 MG/DL (0.2-1.0); BLOOD UREA NITROGEN 21 mg/dL (7-18); CALCIUM 8.4 MG/DL (8.5-10.1); CARBON DIOXIDE 37 MMOL/L (21-32); CHLORIDE 106 MMOL/L (98-107); CREATININE 0.8 MG/DL (0.55-1.30); POTASSIUM 3.9 MMOL/L (3.5-5.1); SODIUM 144 MMOL/L (136-145)
--- NOTE | 2018-10-26 12:53 | Surgery Progress Note ---
Surgery Progress Note Subjective Symptoms: improved, passing flatus Additional Comments no acute events. labs improving Objective Last 24 Hour Vital Signs Date Time Temp Pulse Resp B/P (MAP) Pulse Ox O2 Delivery O2 Flow Rate FiO2 10/26/18 12:50 99 131/78 10/26/18 11:34 82 20 97 Nasal Cannula 3.0 32 10/26/18 11:22 92 22 95 Nasal Cannula 3.0 32 10/26/18 09:00 Nasal Cannula 3.0 32 10/26/18 09:00 Nasal Cannula 4.0 10/26/18 09:00 92 24 Nasal Cannula 3.0 32 10/26/18 09:00 95 Nasal Cannula 3.0 32 10/26/18 08:13 116/70 10/26/18 08:00 120 10/26/18 08:00 98.2 88 20 116/70 (85) 94 10/26/18 06:20 107 124/83 10/26/18 04:00 100 10/26/18 04:00 97.8 100 18 124/83 (97) 98 10/26/18 03:49 84 20 98 Nasal Cannula 3.0 32 10/26/18 03:40 78 24 Nasal Cannula 3.0 32 10/26/18 03:39 78 24 93 Nasal Cannula 3.0 32 10/26/18 00:06 106 115/63 10/26/18 00:00 98.0 106 20 122/86 (98) 93 10/26/18 00:00 106 10/25/18 21:00 Nasal Cannula 4.0 10/25/18 20:41 Nasal Cannula 3.0 32 10/25/18 20:41 98 Nasal Cannula 3.0 32 10/25/18 20:00 97.5 95 18 143/91 (108) 97 10/25/18 20:00 95 10/25/18 17:08 70 124/86 10/25/18 16:00 98.0 112 20 159/80 (106) 93 10/25/18 15:17 111 10/25/18 13:35 68 122/86 10/25/18 13:13 68 18 99 Nasal Cannula 5.0 40 10/25/18 13:03 90 22 89 Nasal Cannula 5.0 40 I&O Intake and Output 10/25/18 10/26/18 19:00 07:00 Intake Total 120 ml Output Total 1300 ml Balance -1180 ml Intake Oral 120 ml Output Urine Total 1300 ml # Voids 2 # Bowel Movements 1 1 Dressing: other Wound: other Drains: other Cardiovascular: RSR Respiratory: clear Abdomen: soft, present bowel sounds, non-distended Extremities: other Laboratory Tests Test 10/26/18 11:38 White Blood Count 11.9 K/UL (4.8-10.8) H Red Blood Count 4.29 M/UL (4.70-6.10) L Hemoglobin 11.3 G/DL (14.2-18.0) L Hematocrit 38.2 % (42.0-52.0) L Mean Corpuscular Volume 89 FL (80-99) Mean Corpuscular Hemoglobin 26.3 PG (27.0-31.0) L Mean Corpuscular Hemoglobin Concent 29.5 G/DL (32.0-36.0) L Red Cell Distribution Width 17.5 % (11.6-14.8) H Platelet Count 137 K/UL (150-450) L Mean Platelet Volume 6.8 FL (6.5-10.1) Neutrophils (%) (Auto) % (45.0-75.0) Lymphocytes (%) (Auto) % (20.0-45.0) Monocytes (%) (Auto) % (1.0-10.0) Eosinophils (%) (Auto) % (0.0-3.0) Basophils (%) (Auto) % (0.0-2.0) Neutrophils % (Manual) Pending Lymphocytes % (Manual) Pending Platelet Estimate Pending Platelet Morphology Pending Sodium Level 144 MMOL/L (136-145) Potassium Level 3.9 MMOL/L (3.5-5.1) Chloride Level 106 MMOL/L (98-107) Carbon Dioxide Level 37 MMOL/L (21-32) H Anion Gap 2 mmol/L (5-15) L Blood Urea Nitrogen 21 mg/dL (7-18) H Creatinine 0.8 MG/DL (0.55-1.30) Estimat Glomerular Filtration Rate mL/min (>60) Glucose Level 162 MG/DL (74-106) H Calcium Level 8.4 MG/DL (8.5-10.1) L Magnesium Level 1.9 MG/DL (1.8-2.4) Total Bilirubin 0.3 MG/DL (0.2-1.0) Aspartate Amino Transf (AST/SGOT) 52 U/L (15-37) H Alanine Aminotransferase (ALT/SGPT) 46 U/L (12-78) Alkaline Phosphatase 68 U/L (46-116) Pro-B-Type Natriuretic Peptide 2639 pg/mL (0-125) H Total Protein 6.3 G/DL (6.4-8.2) L Albumin 2.5 G/DL (3.4-5.0) L Globulin 3.8 g/dL Albumin/Globulin Ratio 0.7 (1.0-2.7) L Plan Problems: (1) Abdominal pain Assessment & Plan: states improved. tolerating diet. passing flatus abdominal exam benign lft's okay leukocytosis likely from steroids will monitor clinically for now. (2) Venous stasis ulcer Assessment & Plan: Patient presents with multiple linear chronic wounds to his lower extremities and some areas of ulcerations. wounds seem in different stages of healing and most traumatic in nature some likely lower extremity venous stasis ulcer no active bleeding. no signs of active infection. no cellulitis. no edema. minimal tenderness poor hygiene Tx Plan: wash right and left left/feet daily with skin wipes apply hyrogel and skin protectant to legs daily place abd and wrap with kerlix daily thank you Jarred Hinson Oct 26, 2018 12:53
--- NOTE | 2018-10-26 13:16 | NUR ---
REHAB MED PROGRESS NOTE PATIENT MIN A FOR TRANSFER AND MOBILITY, RECOMMEND SNF AT DC. CONTINUE PLOC. PROGRESSING WITH PT.
--- NOTE | 2018-10-26 13:18 | Infectious Diseases Prog Note ---
Assessment/Plan Assessment/Plan IMPRESSION: COPD, asthma exacerbation. HIV screen: negative. longstanding Heroin abuse, Nicotine dependence hypercapnic respiratory failure, diastolic CHF, anemia, hypertension. P; Observe off antibiotic Subjective ROS Limited/Unobtainable: No Constitutional: Reports: no symptoms Respiratory: Reports: productive cough Cardiovascular: Reports: no symptoms Gastrointestinal/Abdominal: Reports: no symptoms Genitourinary: Reports: no symptoms Allergies: Coded Allergies: No Known Allergies (Unverified , 10/17/18) Objective Vital Signs Last 24 Hour Vital Signs Date Time Temp Pulse Resp B/P (MAP) Pulse Ox O2 Delivery O2 Flow Rate FiO2 10/26/18 12:50 99 131/78 10/26/18 11:34 82 20 97 Nasal Cannula 3.0 32 10/26/18 11:22 92 22 95 Nasal Cannula 3.0 32 10/26/18 09:00 Nasal Cannula 3.0 32 10/26/18 09:00 Nasal Cannula 4.0 10/26/18 09:00 92 24 Nasal Cannula 3.0 32 10/26/18 09:00 95 Nasal Cannula 3.0 32 10/26/18 08:13 116/70 10/26/18 08:00 120 10/26/18 08:00 98.2 88 20 116/70 (85) 94 10/26/18 06:20 107 124/83 10/26/18 04:00 100 10/26/18 04:00 97.8 100 18 124/83 (97) 98 10/26/18 03:49 84 20 98 Nasal Cannula 3.0 32 10/26/18 03:40 78 24 Nasal Cannula 3.0 32 10/26/18 03:39 78 24 93 Nasal Cannula 3.0 32 10/26/18 00:06 106 115/63 10/26/18 00:00 98.0 106 20 122/86 (98) 93 10/26/18 00:00 106 10/25/18 21:00 Nasal Cannula 4.0 10/25/18 20:41 Nasal Cannula 3.0 32 10/25/18 20:41 98 Nasal Cannula 3.0 32 10/25/18 20:00 97.5 95 18 143/91 (108) 97 10/25/18 20:00 95 10/25/18 17:08 70 124/86 10/25/18 16:00 98.0 112 20 159/80 (106) 93 10/25/18 15:17 111 10/25/18 13:35 68 122/86 Height (Feet): 5 Height (Inches): 7.00 Weight (Pounds): 105 HEENT: mucous membranes moist Respiratory/Chest: decreased breath sounds Cardiovascular: normal rate Abdomen: soft, non tender Extremities: no edema Skin: ulcers, other - legs Neurologic/Psychiatric: alert, oriented x 3, responsive Laboratory Tests Test 10/26/18 11:38 White Blood Count 11.9 K/UL (4.8-10.8) H Red Blood Count 4.29 M/UL (4.70-6.10) L Hemoglobin 11.3 G/DL (14.2-18.0) L Hematocrit 38.2 % (42.0-52.0) L Mean Corpuscular Volume 89 FL (80-99) Mean Corpuscular Hemoglobin 26.3 PG (27.0-31.0) L Mean Corpuscular Hemoglobin Concent 29.5 G/DL (32.0-36.0) L Red Cell Distribution Width 17.5 % (11.6-14.8) H Platelet Count 137 K/UL (150-450) L Mean Platelet Volume 6.8 FL (6.5-10.1) Neutrophils (%) (Auto) % (45.0-75.0) Lymphocytes (%) (Auto) % (20.0-45.0) Monocytes (%) (Auto) % (1.0-10.0) Eosinophils (%) (Auto) % (0.0-3.0) Basophils (%) (Auto) % (0.0-2.0) Neutrophils % (Manual) Pending Lymphocytes % (Manual) Pending Platelet Estimate Pending Platelet Morphology Pending Sodium Level 144 MMOL/L (136-145) Potassium Level 3.9 MMOL/L (3.5-5.1) Chloride Level 106 MMOL/L (98-107) Carbon Dioxide Level 37 MMOL/L (21-32) H Anion Gap 2 mmol/L (5-15) L Blood Urea Nitrogen 21 mg/dL (7-18) H Creatinine 0.8 MG/DL (0.55-1.30) Estimat Glomerular Filtration Rate mL/min (>60) Glucose Level 162 MG/DL (74-106) H Calcium Level 8.4 MG/DL (8.5-10.1) L Magnesium Level 1.9 MG/DL (1.8-2.4) Total Bilirubin 0.3 MG/DL (0.2-1.0) Aspartate Amino Transf (AST/SGOT) 52 U/L (15-37) H Alanine Aminotransferase (ALT/SGPT) 46 U/L (12-78) Alkaline Phosphatase 68 U/L (46-116) Pro-B-Type Natriuretic Peptide 2639 pg/mL (0-125) H Total Protein 6.3 G/DL (6.4-8.2) L Albumin 2.5 G/DL (3.4-5.0) L Globulin 3.8 g/dL Albumin/Globulin Ratio 0.7 (1.0-2.7) L Current Medications Medications (Trade) Dose Ordered Sig/Aimee Route PRN Reason Start Time Stop Time Status Last Admin Dose Admin Acetaminophen (Tylenol) 650 mg Q6H PRN ORAL Mild Pain/Temp > 100.5 10/18/18 04:45 11/17/18 04:44 10/26/18 03:39 Albuterol Sulfate (Proventil) 2.5 mg Q6H PRN HHN shortness of breath 10/25/18 12:30 10/30/18 12:29 10/26/18 03:39 Diltiazem HCl (Cardizem) 30 mg EVERY 6 HOURS ORAL 10/21/18 14:00 11/20/18 13:59 10/26/18 12:50 Escitalopram Oxalate (Lexapro) 10 mg DAILY ORAL 10/27/18 09:00 11/26/18 08:59 Heparin Sodium (Porcine) (Heparin 5000 units/ml) 5,000 units EVERY 12 HOURS SUBQ 10/18/18 21:00 11/17/18 20:59 10/26/18 08:13 Ipratropium [place] (Atrovent) 500 mcg Q4H PRN HHN Shortness of Breath 10/25/18 12:30 10/30/18 12:29 10/26/18 11:21 Lisinopril (Prinivil) 20 mg DAILY ORAL 10/20/18 09:00 11/19/18 08:59 10/26/18 08:13 Mirtazapine (Remeron) 15 mg BEDTIME ORAL 10/18/18 21:00 11/17/18 20:59 10/25/18 21:06 Prednisone (predniSONE) 20 mg DAILY ORAL 10/24/18 09:45 11/23/18 09:44 10/26/18 08:13 Jez Espinoza MD Oct 26, 2018 13:18
[2018-10-26 16:00] VITALS: BP 136/81
[2018-10-26 20:00] VITALS: BP 131/83
--- NOTE | 2018-10-26 20:09 | NUR ---
HAND-OFF: Report given to ANN Hoffmann.
--- NOTE | 2018-10-26 20:28 | NUR ---
NURSE NOTES: Received pt from ANN Hoover. Pt is awake and alert. Will continue with plan of care.
[2018-10-27] VITALS: BP 152/89
--- NOTE | 2018-10-27 03:00 | Progress Note ---
DATE: 10/26/2018 SUBJECTIVE: The patient is less short of breath. He is off antibiotics. Cardiac rhythm is sinus. OBJECTIVE: VITAL SIGNS: Blood pressure 116/70, pulse 88, and respirations 20. LUNGS: Coarse breath sounds. Diminished at the bases. HEART: Regular rhythm and rate. Normal S1, S2. ABDOMEN: Soft. EXTREMITIES: No edema. Lower extremity ulcer sites are clean and dry. LABORATORY DATA: White count 11.9 and hemoglobin 11.3. Sodium 144, potassium 3.9, bicarb 37, BUN 21, creatinine 0.8, glucose 162, magnesium 1.9, and albumin 2.5. IMPRESSION: Improved. PLAN: 1. Adjust diuretic dosing. 2. Continue respiratory hygiene. 3. Skin care. 4. Physical and occupational therapy. 5. Discharge planning. Justus Grewal M.D. DR: BRIDGET JOB#: [id number] CC:
[2018-10-27 04:00] VITALS: BP 148/98
[2018-10-27] MEDS: dilTIAZem HCl 30mg tab ORAL SCH ×3 (05:55→17:57)
--- NOTE | 2018-10-27 07:25 | NUR ---
HAND-OFF: Report given to ANN East.
[2018-10-27 08:00] VITALS: BP 146/90
[2018-10-27] MEDS: Lisinopril 20mg tab ORAL SCH (08:51)
[2018-10-27] MEDS: Heparin 5000 units/ml inj SUBQ SCH (08:51)
--- NOTE | 2018-10-27 09:52 | Infectious Diseases Prog Note ---
Assessment/Plan Assessment/Plan antibiotics : none A 1. pneumonia s/p rx 2. COPD exacerbation 3. CHF 4. diabetes mellitus 5. anemia 6. rectal VRE colonization P 1. observe off antibiotics 2. dc planned Subjective ROS Limited/Unobtainable: Yes Constitutional: Denies: fever, chills Respiratory: Reports: shortness of breath, dry cough Gastrointestinal/Abdominal: Denies: nausea, vomiting, diarrhea Musculoskeletal: Denies: pain Allergies: Coded Allergies: No Known Allergies (Unverified , 10/17/18) Objective Vital Signs Last 24 Hour Vital Signs Date Time Temp Pulse Resp B/P (MAP) Pulse Ox O2 Delivery O2 Flow Rate FiO2 10/27/18 08:51 148/98 10/27/18 05:55 105 148/98 10/27/18 04:00 96.5 107 20 148/98 (115) 96 10/27/18 04:00 107 10/27/18 00:00 99 10/27/18 00:00 97.5 99 18 152/89 (110) 98 10/26/18 23:55 117 131/83 10/26/18 21:00 Nasal Cannula 4.0 10/26/18 20:51 101 20 98 Nasal Cannula 3.0 32 10/26/18 20:42 102 20 94 Nasal Cannula 3.0 32 10/26/18 20:42 94 Nasal Cannula 3.0 32 10/26/18 20:42 Nasal Cannula 3.0 32 10/26/18 20:41 102 20 Nasal Cannula 3.0 32 10/26/18 20:00 117 10/26/18 20:00 97.6 117 19 131/83 (99) 99 10/26/18 17:51 111 136/81 10/26/18 16:52 95 24 Nasal Cannula 3.0 32 10/26/18 16:00 98.1 111 20 136/81 (99) 94 10/26/18 16:00 116 10/26/18 15:38 80 20 97 Nasal Cannula 3.0 32 10/26/18 15:28 89 20 96 Nasal Cannula 3.0 32 10/26/18 12:50 99 131/78 10/26/18 12:00 97.9 99 22 131/78 (95) 93 10/26/18 12:00 105 10/26/18 11:34 82 20 97 Nasal Cannula 3.0 32 10/26/18 11:22 92 22 95 Nasal Cannula 3.0 32 Height (Feet): 5 Height (Inches): 7.00 Weight (Pounds): 109 Respiratory/Chest: lungs clear Cardiovascular: normal rate, regular rhythm, no gallop/murmur Abdomen: soft, non tender Extremities: no edema Laboratory Tests Test 10/26/18 11:38 White Blood Count 11.9 K/UL (4.8-10.8) H Red Blood Count 4.29 M/UL (4.70-6.10) L Hemoglobin 11.3 G/DL (14.2-18.0) L Hematocrit 38.2 % (42.0-52.0) L Mean Corpuscular Volume 89 FL (80-99) Mean Corpuscular Hemoglobin 26.3 PG (27.0-31.0) L Mean Corpuscular Hemoglobin Concent 29.5 G/DL (32.0-36.0) L Red Cell Distribution Width 17.5 % (11.6-14.8) H Platelet Count 137 K/UL (150-450) L Mean Platelet Volume 6.8 FL (6.5-10.1) Neutrophils (%) (Auto) % (45.0-75.0) Lymphocytes (%) (Auto) % (20.0-45.0) Monocytes (%) (Auto) % (1.0-10.0) Eosinophils (%) (Auto) % (0.0-3.0) Basophils (%) (Auto) % (0.0-2.0) Differential Total Cells Counted 100 Neutrophils % (Manual) 77 % (45-75) H Lymphocytes % (Manual) 9 % (20-45) L Monocytes % (Manual) 10 % (1-10) Eosinophils % (Manual) 0 % (0-3) Basophils % (Manual) 0 % (0-2) Band Neutrophils 4 % (0-8) Platelet Estimate Decreased L Platelet Morphology Normal Anisocytosis 1+ Sodium Level 144 MMOL/L (136-145) Potassium Level 3.9 MMOL/L (3.5-5.1) Chloride Level 106 MMOL/L (98-107) Carbon Dioxide Level 37 MMOL/L (21-32) H Anion Gap 2 mmol/L (5-15) L Blood Urea Nitrogen 21 mg/dL (7-18) H Creatinine 0.8 MG/DL (0.55-1.30) Estimat Glomerular Filtration Rate mL/min (>60) Glucose Level 162 MG/DL (74-106) H Calcium Level 8.4 MG/DL (8.5-10.1) L Magnesium Level 1.9 MG/DL (1.8-2.4) Total Bilirubin 0.3 MG/DL (0.2-1.0) Aspartate Amino Transf (AST/SGOT) 52 U/L (15-37) H Alanine Aminotransferase (ALT/SGPT) 46 U/L (12-78) Alkaline Phosphatase 68 U/L (46-116) Pro-B-Type Natriuretic Peptide 2639 pg/mL (0-125) H Total Protein 6.3 G/DL (6.4-8.2) L Albumin 2.5 G/DL (3.4-5.0) L Globulin 3.8 g/dL Albumin/Globulin Ratio 0.7 (1.0-2.7) L Current Medications Medications (Trade) Dose Ordered Sig/Aimee Route PRN Reason Start Time Stop Time Status Last Admin Dose Admin Acetaminophen (Tylenol) 650 mg Q6H PRN ORAL Mild Pain/Temp > 100.5 10/18/18 04:45 11/17/18 04:44 10/27/18 05:57 Albuterol Sulfate (Proventil) 2.5 mg Q6H PRN HHN shortness of breath 10/25/18 12:30 10/30/18 12:29 10/26/18 15:28 Diltiazem HCl (Cardizem) 30 mg EVERY 6 HOURS ORAL 10/21/18 14:00 11/20/18 13:59 10/27/18 05:55 Escitalopram Oxalate (Lexapro) 10 mg DAILY ORAL 10/27/18 09:00 11/26/18 08:59 10/27/18 08:50 Gabapentin (Neurontin) 600 mg Q6H PRN ORAL Agitation 10/27/18 06:15 11/26/18 06:14 Heparin Sodium (Porcine) (Heparin 5000 units/ml) 5,000 units EVERY 12 HOURS SUBQ 10/18/18 21:00 11/17/18 20:59 10/26/18 21:35 Ipratropium [place] (Atrovent) 500 mcg Q4H PRN HHN Shortness of Breath 10/25/18 12:30 10/30/18 12:29 10/26/18 20:42 Lisinopril (Prinivil) 20 mg DAILY ORAL 10/20/18 09:00 11/19/18 08:59 10/27/18 08:51 Mirtazapine (Remeron) 15 mg BEDTIME ORAL 10/18/18 21:00 11/17/18 20:59 10/26/18 21:33 Prednisone (predniSONE) 20 mg DAILY ORAL 10/24/18 09:45 11/23/18 09:44 10/27/18 08:50 Jessy Zabala MD Oct 27, 2018 09:52
[2018-10-27] MEDS: Ipratropium 0.02% Inh Soln 2.5ml UD HHN PRN ×2 (10:04→15:48)
[2018-10-27] MEDS: Albuterol ud Inhalation HHN PRN ×2 (10:04→15:48)
--- NOTE | 2018-10-27 10:35 | NUR ---
*-* DISCHARGE PLANNING *-* PATIENT HAS BEEN REFERRED TO: [facility] Horne;[phone] F:[phone]
--- NOTE | 2018-10-27 11:51 | Pulmonology Progress Note ---
Assessment/Plan Assessment/Plan 1. Acute respiratory failure with hypercapnia. Improved 2. HIV. 3. COPD. 4. CHF. DISCUSSION: Continue nocturnal BiPAP On PO steroids On breathing treatments Continue diuresis, antibiotics, pulmonary hygiene and steroids. I will continue to follow carefully. Discussed with nursing staff. Subjective Interval Events: no new reported problems Discussed with RN Constitutional: Reports: no symptoms HEENT: Repors: no symptoms Respiratory: Reports: no symptoms Cardiovascular: Reports: no symptoms Gastrointestinal/Abdominal: Reports: no symptoms Genitourinary: Reports: no symptoms Allergies: Coded Allergies: No Known Allergies (Unverified , 10/17/18) Objective Last 24 Hour Vital Signs Date Time Temp Pulse Resp B/P (MAP) Pulse Ox O2 Delivery O2 Flow Rate FiO2 10/27/18 08:51 148/98 10/27/18 05:55 105 148/98 10/27/18 04:00 96.5 107 20 148/98 (115) 96 10/27/18 04:00 107 10/27/18 00:00 99 10/27/18 00:00 97.5 99 18 152/89 (110) 98 10/26/18 23:55 117 131/83 10/26/18 21:00 Nasal Cannula 4.0 10/26/18 20:51 101 20 98 Nasal Cannula 3.0 32 10/26/18 20:42 102 20 94 Nasal Cannula 3.0 32 10/26/18 20:42 94 Nasal Cannula 3.0 32 10/26/18 20:42 Nasal Cannula 3.0 32 10/26/18 20:41 102 20 Nasal Cannula 3.0 32 10/26/18 20:00 117 10/26/18 20:00 97.6 117 19 131/83 (99) 99 10/26/18 17:51 111 136/81 10/26/18 16:52 95 24 Nasal Cannula 3.0 32 10/26/18 16:00 98.1 111 20 136/81 (99) 94 10/26/18 16:00 116 10/26/18 15:38 80 20 97 Nasal Cannula 3.0 32 10/26/18 15:28 89 20 96 Nasal Cannula 3.0 32 10/26/18 12:50 99 131/78 10/26/18 12:00 97.9 99 22 131/78 (95) 93 10/26/18 12:00 105 Intake and Output 10/26/18 10/27/18 19:00 07:00 Intake Total 360 ml Output Total 850 ml Balance -490 ml Intake Oral 360 ml Output Urine Total 850 ml # Voids 3 # Bowel Movements 6 3 General Appearance: no acute distress HEENT: normocephalic, atraumatic Respiratory/Chest: chest wall non-tender, lungs clear Cardiovascular: normal peripheral pulses, normal rate Abdomen: normal bowel sounds, soft, non tender Extremities: no cyanosis Current Medications Medications (Trade) Dose Ordered Sig/Aimee Route PRN Reason Start Time Stop Time Status Last Admin Dose Admin Acetaminophen (Tylenol) 650 mg Q6H PRN ORAL Mild Pain/Temp > 100.5 10/18/18 04:45 11/17/18 04:44 10/27/18 05:57 Albuterol Sulfate (Proventil) 2.5 mg Q6H PRN HHN shortness of breath 10/25/18 12:30 10/30/18 12:29 10/27/18 10:04 Diltiazem HCl (Cardizem) 30 mg EVERY 6 HOURS ORAL 10/21/18 14:00 11/20/18 13:59 10/27/18 05:55 Escitalopram Oxalate (Lexapro) 10 mg DAILY ORAL 10/27/18 09:00 11/26/18 08:59 10/27/18 08:50 Gabapentin (Neurontin) 600 mg Q6H PRN ORAL Agitation 10/27/18 06:15 11/26/18 06:14 Heparin Sodium (Porcine) (Heparin 5000 units/ml) 5,000 units EVERY 12 HOURS SUBQ 10/18/18 21:00 11/17/18 20:59 10/26/18 21:35 Ipratropium [place] (Atrovent) 500 mcg Q4H PRN HHN Shortness of Breath 10/25/18 12:30 10/30/18 12:29 10/27/18 10:04 Lisinopril (Prinivil) 20 mg DAILY ORAL 10/20/18 09:00 11/19/18 08:59 10/27/18 08:51 Mirtazapine (Remeron) 15 mg BEDTIME ORAL 10/18/18 21:00 11/17/18 20:59 10/26/18 21:33 Prednisone (predniSONE) 20 mg DAILY ORAL 10/24/18 09:45 11/23/18 09:44 10/27/18 08:50 Abhijit Morris MD Oct 27, 2018 11:51
[2018-10-27 12:00] VITALS: BP 149/83
--- NOTE | 2018-10-27 13:42 | General Progress Note ---
Assessment/Plan Problem List: (1) toxinc encephalopathy acute (2) Heroin abuse ICD Codes: F11.10 - Heroin abuse SNOMED: 112898372 (3) Opiate dependence, continuous ICD Codes: F11.20 - Opioid dependence, uncomplicated SNOMED: 080145711 Status: stable Assessment/Plan Neurontin prn Remeron 30mg po qhs Provided ro/st Lexapro 10mg po qam Subjective Neurologic/Psychiatric: Reports: anxiety, depressed, emotional problems Allergies: Coded Allergies: No Known Allergies (Unverified , 10/17/18) Subjective the pt cont to be depressed and anxious. Objective Last 24 Hour Vital Signs Date Time Temp Pulse Resp B/P (MAP) Pulse Ox O2 Delivery O2 Flow Rate FiO2 10/27/18 12:00 97.0 97 20 149/83 (105) 87 10/27/18 12:00 97 10/27/18 11:55 105 148/98 10/27/18 10:12 100 20 94 Nasal Cannula 4.0 36 10/27/18 10:04 100 22 92 Nasal Cannula 4.0 36 10/27/18 10:04 100 22 Nasal Cannula 4.0 36 10/27/18 10:04 Nasal Cannula 4.0 36 10/27/18 10:04 92 Nasal Cannula 4.0 36 10/27/18 09:00 Nasal Cannula 4.0 10/27/18 08:51 148/98 10/27/18 08:00 97.4 94 20 146/90 (108) 95 10/27/18 08:00 94 10/27/18 05:55 105 148/98 10/27/18 04:00 96.5 107 20 148/98 (115) 96 10/27/18 04:00 107 10/27/18 00:00 99 10/27/18 00:00 97.5 99 18 152/89 (110) 98 10/26/18 23:55 117 131/83 10/26/18 21:00 Nasal Cannula 4.0 10/26/18 20:51 101 20 98 Nasal Cannula 3.0 32 10/26/18 20:42 102 20 94 Nasal Cannula 3.0 32 10/26/18 20:42 94 Nasal Cannula 3.0 32 10/26/18 20:42 Nasal Cannula 3.0 32 10/26/18 20:41 102 20 Nasal Cannula 3.0 32 10/26/18 20:00 117 10/26/18 20:00 97.6 117 19 131/83 (99) 99 10/26/18 17:51 111 136/81 10/26/18 16:52 95 24 Nasal Cannula 3.0 32 10/26/18 16:00 98.1 111 20 136/81 (99) 94 10/26/18 16:00 116 10/26/18 15:38 80 20 97 Nasal Cannula 3.0 32 10/26/18 15:28 89 20 96 Nasal Cannula 3.0 32 Intake and Output 10/26/18 10/27/18 19:00 07:00 Intake Total 360 ml Output Total 850 ml Balance -490 ml Intake Oral 360 ml Output Urine Total 850 ml # Voids 3 # Bowel Movements 6 3 Height (Feet): 5 Height (Inches): 7.00 Weight (Pounds): 109 General Appearance: alert, agitated, cachetic Neurologic: oriented x 3, responsive, depressed affect Spencer Langston MD Oct 27, 2018 13:42
--- NOTE | 2018-10-27 13:51 | NUR ---
CASE MANAGEMENT:REVIEW CASE MANAGEMENT:REVIEW 10/26/18 SI: COPD EXACERBATION PNA. AC/CHR CHF 97.6 117 19 131/83 94% ON 3L/NC WBC+11.9 PLT-137 IS: PREDNISONE PO QD CARDIZEM PO Q6 LISINOPRIL PO QD HEPARIN SQ Q12 REMERON PO QHS : TELEMETRY STATUS 10/27/18 SI: COPD EXACERBATION PNA. AC/CHR CHF 97.0 105 20 149/83 94% ON 4L/NC IS: PREDNISONE PO QD CARDIZEM PO Q6 LISINOPRIL PO QD HEPARIN SQ Q12 REMERON PO QHS : TELEMETRY STATUS DCP: PATIENT IS FROM HOME PLAN: SNF PLACEMENT IF PATIENT AGREES
--- NOTE | 2018-10-27 14:54 | Surgery Progress Note ---
Surgery Progress Note Subjective Symptoms: improved, pain absent Objective Last 24 Hour Vital Signs Date Time Temp Pulse Resp B/P (MAP) Pulse Ox O2 Delivery O2 Flow Rate FiO2 10/27/18 12:00 97.0 97 20 149/83 (105) 87 10/27/18 12:00 97 10/27/18 11:55 105 148/98 10/27/18 10:12 100 20 94 Nasal Cannula 4.0 36 10/27/18 10:04 100 22 92 Nasal Cannula 4.0 36 10/27/18 10:04 100 22 Nasal Cannula 4.0 36 10/27/18 10:04 Nasal Cannula 4.0 36 10/27/18 10:04 92 Nasal Cannula 4.0 36 10/27/18 09:00 Nasal Cannula 4.0 10/27/18 08:51 148/98 10/27/18 08:00 97.4 94 20 146/90 (108) 95 10/27/18 08:00 94 10/27/18 05:55 105 148/98 10/27/18 04:00 96.5 107 20 148/98 (115) 96 10/27/18 04:00 107 10/27/18 00:00 99 10/27/18 00:00 97.5 99 18 152/89 (110) 98 10/26/18 23:55 117 131/83 10/26/18 21:00 Nasal Cannula 4.0 10/26/18 20:51 101 20 98 Nasal Cannula 3.0 32 10/26/18 20:42 102 20 94 Nasal Cannula 3.0 32 10/26/18 20:42 94 Nasal Cannula 3.0 32 10/26/18 20:42 Nasal Cannula 3.0 32 10/26/18 20:41 102 20 Nasal Cannula 3.0 32 10/26/18 20:00 117 10/26/18 20:00 97.6 117 19 131/83 (99) 99 10/26/18 17:51 111 136/81 10/26/18 16:52 95 24 Nasal Cannula 3.0 32 10/26/18 16:00 98.1 111 20 136/81 (99) 94 10/26/18 16:00 116 10/26/18 15:38 80 20 97 Nasal Cannula 3.0 32 10/26/18 15:28 89 20 96 Nasal Cannula 3.0 32 I&O Intake and Output 2/21/19 2/22/19 19:00 07:00 Intake Total 360 ml Output Total 850 ml Balance -490 ml Intake Oral 360 ml Output Urine Total 850 ml # Voids 3 # Bowel Movements 6 3 Dressing: other Wound: other Drains: other Cardiovascular: RSR Respiratory: clear Abdomen: soft, non-tender, present bowel sounds, non-distended Extremities: no cyanosis Plan Problems: (1) Abdominal pain Assessment & Plan: states improved. tolerating diet. passing flatus abdominal exam benign lft's okay leukocytosis likely from steroids will monitor clinically for now. (2) Venous stasis ulcer Assessment & Plan: Patient presents with multiple linear chronic wounds to his lower extremities and some areas of ulcerations. wounds seem in different stages of healing and most traumatic in nature some likely lower extremity venous stasis ulcer no active bleeding. no signs of active infection. no cellulitis. no edema. minimal tenderness poor hygiene Tx Plan: wash right and left left/feet daily with skin wipes apply hyrogel and skin protectant to legs daily place abd and wrap with kerlix daily thank you Jarred Hinson Oct 27, 2018 14:54
--- NOTE | 2018-10-27 15:21 | NUR ---
*-* DISCHARGE PLANNED *-* PATIENT IS DISACHRGED TO: [facility] ROOM# 12-B SKILLED T:[phone] [facility] NURSE TO NURSE REPORT [facility] IS ARRANGED FOR WRITER EDITOR AT 1800 S/W GAMA [id number]
[2018-10-27 16:00] VITALS: BP 127/74
[2018-10-27 17:57] VITALS: BP 149/83
--- NOTE | 2018-10-30 01:15 | Progress Note ---
DATE: 10/25/2018 SUBJECTIVE: The patient is refusing additional BiPAP support. He states he is not short of breath, but he does have congestion and he has limited ability to mobilize out of bed. OBJECTIVE: VITAL SIGNS: Blood pressure 155/84, heart rate 86, respiratory rate 18, afebrile. LUNGS: Coarse breath sounds. Few rhonchi. HEART: Regular rhythm and rate. Normal S1, S2 with a 1/6 systolic lower left sternal border murmur. ABDOMEN: Soft. EXTREMITIES: No edema. SKIN: Stasis dermatitis changes. IMPRESSION: 1. COPD exacerbation.. 2. Acute on chronic respiratory acidosis. 3. Paroxysmal bronchospasm. 4. Acute on chronic systolic and diastolic congestive heart failure. 5. History of heroin abuse. PLAN: 1. Maintenance-dose diuretic. 2. Taper steroids. 3. Inhaled bronchodilators. 4. Nutritional support. 5. Discussions with case management in progress for suitable disposition as the patient has a significant functional decline and requires rehabilitation prior to independent function. Justus Grewal M.D. DR: Ed JOB#: [id number] CC:
--- NOTE | 2018-10-30 01:30 | Progress Note ---
DATE: 10/27/2018 CARDIOLOGY PROGRESS NOTE Late entry for 10/27/2018 SUBJECTIVE: The patient is feeling better. He is refusing BiPAP. He states he does not need it. OBJECTIVE: VITAL SIGNS: Blood pressure 148/98, pulse 105, and respiratory rate 20. LUNGS: Coarse breath sounds. No wheezing. CARDIAC: Regular rhythm and rate. Normal S1 and S2. ABDOMEN: Soft. EXTREMITIES: No edema. Leg ulcers improved. IMPRESSION: 1. COPD. 2. Heroin abuse. 3. Paroxysmal bronchospasm. 4. Glucose intolerance exacerbated by steroid. 5. Acute on chronic systolic and diastolic congestive heart failure, improved. 6. Moderate protein-calorie malnutrition. 7. Compensatory metabolic alkalosis. 8. Hypertensive heart disease. 9. Secondary sinus tachycardia. 10. Paroxysmal atrial ectopy. PLAN: 1. Nutritional support. 2. Pulmonary hygiene. 3. Physical and occupational therapy. 4. Maintenance diuresis. 5. Advance antihypertensive and diltiazem for rate control. Justus Grewal M.D. DR: SAMANTHA JOB#: [id number] CC:
--- NOTE | 2018-10-30 14:15 | Discharge Summary ---
Discharge Summary Discharge Summary _ DATE OF ADMISSION: 10/16/2018 DATE OF DISCHARGE: 10/27/2018 DISCHARGED BY: REASON FOR ADMISSION: 73 years old male with past medical history of hypertension, COPD/asthma, CHF, substance abuse, chronic narcotic analgesic dependency, presented for altered mental status. Upon arrival patient was short of breath and wheezing. Vital signs revealed tachycardia and tachypnea. Pulse oximetry was stable on room air Laboratory workup revealed no leukocytosis, hemoglobin 11.3 and hematocrit 38.5. Stable electrolytes and renal parameters. Troponin- 0.137, pro BNP 9672. EKG revealed sinus tachycardia no acute ischemic changes. Urine toxicology screen was positive for opiates. Serum alcohol level is less than 3. Chest x-ray showed bilateral mid and lower lung infiltrates, atelectasis and likely small bilateral pleural effusion, cardiomegaly, possible mild interstitial congestion. ABG revealed evidence of respiratory acidosis with pH 7.198 and PCO2 77. Patient was placed on BiPAP. Patient pancultured and started on broad-spectrum antibiotics. Patient admitted to stepdown unit for further management CONSULTANTS: power plant electrician pulmonary Dr. Morris ID specialist Dr. Zabala surgery Dr. Hinson psychiatrist [facility] COURSE: Patient admitted to [facility]. Patient was continued on BiPAP and started on diuresis with close monitoring of volumes and cardiorenal parameters. Flat Polisher closely followed. Patient was followed-up with ABG and chest x-ray. Pulmonary toilet bronchodilator provided as needed. Patient started on empiric antibiotics and intravenous steroids. DVT prophylaxis provided. Infectious disease specialist closely followed. Sputum culture was negative. Influenza screen test was negative. HIV test was non-reactive Patient was able to be weaned from the BiPAP Venous duplex bilateral lower extremity revealed no evidence of acute DVT. Follow-up chest x-ray showed unchanged bilateral atelectasis and possibly improved underlying parenchymal consolidation. Arterial duplex revealed no evidence of stenosis or occlusion. Flat Polisher recommended continue nocturnal BiPAP. Steroids were changed to oral. Slot Shift Supervisor closely follow. Echocardiogram revealed preserved ejection fraction of 60% with no evidence of left ventricular hypertrophy. No evidence of wall motion abnormality. Left ventricular diastolic function could not be determined due to arrhythmia. Right ventricular systolic pressure of 86 consistent with severe pulmonary hypertension. ICU care provided. Serial troponin were trended. According to power plant electrician, patient had acute myocardial infarction, non-STEMI type. No plan for full anti-coagulation at this time. Anti-failure and antianginal regimen were maximized. Patient exhibited paroxysmal atrial fibrillation with paroxysmal atrial ectopy and some nonsustained premature ventricular complexes. Cardizem was continued for rate control. Blood pressure was managed with Cardizem and JUHI inhibitor , and remained stable. DVT prophylaxis provided. Patient was continued on on diuresis with close monitoring of volumes and cardiorenal parameters. Pro BNP trended down from initial 9672 down to 2639. Chest x-ray also showed improvement in congestion. Patient completed course of antibiotic for treatment of pneumonia. Intravenous steroids were changed to oral with gradual tapering down. Withdrawal precautions were maintained. Psychiatrist followed. Per psychiatrist , patient had acute toxic encephalopathy , history of heroine abuse and continuous opiate dependency. Patient started on Remeron and Lexapro. Reality orientation and supportive therapy provided. Neurontin recommended on as needed basis. Nutritional recommendations implemented in plan of care. Parameters and electrolytes were closely monitored electrolytes corrected as needed and nephrotoxins were avoided. Hemoglobin and hematocrit were closely monitored with goal to keep hemoglobin above 7 remained at baseline. Patient was working with physical therapist. Surgeon seen patient for venous stasis ulcers. No active bleeding, no signs of infection, no cellulitis, minimal tenderness. Wound care provided as per surgeon recommendation and to be continued at the correction facility. Transfer was arranged to [facility] for further rehabilitation. Patient was stable for discharge FINAL DIAGNOSES: Acute respiratory failure with hypercapnia COPD exacerbation with paroxysmal bronchospasm Community-acquired pneumonia Acute on chronic respiratory acidosis Acute on chronic diastolic congestive heart failure Acute myocardial infarction /NSTEMI Paroxysmal atrial flutter/fibrillation Paroxysmal atrial ectopy Nonsustained PVC Peripheral arterial disease Acute on chronic diastolic congestive heart failure HIV status Hypertension Severe pulmonary hypertension Type 2 diabetes mellitus Severe protein calorie malnutrition Anemia Acute toxic encephalopathy Opiate dependency continuous History of substance abuse/heroine abuse Venous stasis ulcers DISCHARGE MEDICATIONS: List of medication was sent to accepting facility DISCHARGE INSTRUCTIONS: Patient was discharged to the correction facility. Follow up with medical doctor at the facility. I have been assigned to dictate discharge summary for this account. I was not involved in the patient's management. Kathy Yin NP Oct 30, 2018 14:15
== END 2018-10-27 20:30 | DRG 133 ==
LOC: EDBD 13:10 → EDUNIT# 13:10 → EMR 15:30 → UNDOADMIN 16:22 → 2W 16:22 → ICU 16:22 → EDBEDREQ 16:35 → EDBEDREQSVC 20:17 → EDBEDREQ 20:17 → ICU 10-17 07:23 → 2W 10-17 21:27 → 2E 10-24 01:41
DX: J96.02 Acute respiratory failure with hypercapnia (principal); I21.4 Non-ST elevation (NSTEMI) myocardial infarction; E43 Unspecified severe protein-calorie malnutrition; J18.9 Pneumonia, unspecified organism; I50.33 Acute on chronic diastolic (congestive) heart failure; G92 Toxic encephalopathy; E87.2 Acidosis; E87.3 Alkalosis; I48.0 Paroxysmal atrial fibrillation; I11.0 Hypertensive heart disease with heart failure; J44.0 Chronic obstructive pulmonary disease with (acute) lower respiratory infection; F11.20 Opioid dependence, uncomplicated; I48.92 Unspecified atrial flutter; E11.9 Type 2 diabetes mellitus without complications; J44.1 Chronic obstructive pulmonary disease with (acute) exacerbation; I83.018 Varicose veins of right lower extremity with ulcer other part of lower leg; I83.028 Varicose veins of left lower extremity with ulcer other part of lower leg; D64.9 Anemia, unspecified; Z59.0 Homelessness; Z68.1 Body mass index [BMI] 19.9 or less, adult; I49.1 Atrial premature depolarization; R00.0 Tachycardia, unspecified
CPT/HCPCS: 36415; 36600; 71045; 80053; 80307; 80329; 82550; 82553; 82803; 83735; 83880; 84443; 84484; 85007; 85025; 85610; 85730; 86703; 86710; 87070; 87081; 87205; 93005; 93306; 93925; 93970; 94640; 94660; 94664; 94760; 96365; 96367; 96372; 96375; 99291; J2310; J7620; J8499

== ENCOUNTER 2018-11-17 13:15 | Inpatient (IN) | payer MEDICARE, OTHER ==
[2018-11-17] VITALS (14 sets, daily range): BP systolic 77–118; BP diastolic 41–67
[~2018-11-17] VITALS: Ht 162.6 cm; Wt 48.8 kg
[2018-11-17] MEDS ORDERED: Lidocaine 1% Plain 30 ml INJ ONE ×2 (13:47→14:30)
[2018-11-17 13:58] LABS: HEMATOCRIT 35.9 % (42.0-52.0); HEMOGLOBIN 10.6 G/DL (14.2-18.0); MEAN CORPUSCULAR VOLUME 91 FL (80-99); PLATELET COUNT 216 K/UL (150-450); RED BLOOD COUNT 3.94 M/UL (4.70-6.10); RED CELL DISTRIBUTION WIDTH 18.7 % (11.6-14.8)
[2018-11-17 14:13] LABS: ANION GAP 6 mmol/L (5-15); BLOOD UREA NITROGEN 34 mg/dL (7-18); CALCIUM 8.6 MG/DL (8.5-10.1); CARBON DIOXIDE 31 MMOL/L (21-32); CHLORIDE 102 MMOL/L (98-107); CREATININE 3.1 MG/DL (0.55-1.30); SODIUM 139 MMOL/L (136-145)
[2018-11-17] MEDS ORDERED: Acetaminophen 650 MG SUPP RECTAL ONE ×2 (14:15→14:30)
[2018-11-17 14:26] LABS: ALANINE AMINOTRANSFERASE 23 U/L (12-78); ALBUMIN 3.2 G/DL (3.4-5.0); ALBUMIN/GLOBULIN RATIO 0.8 (1.0-2.7); ALKALINE PHOSPHATASE 77 U/L (46-116); ASPARTATE AMINO TRANSFERASE 27 U/L (15-37); BILIRUBIN,TOTAL 0.4 MG/DL (0.2-1.0); CKMB 1.1 NG/ML (0.0-3.6); CREATINE KINASE 71 U/L (26-308)
--- NOTE | 2018-11-17 14:27 | Emergency Room Report ---
History of Present Illness General Chief Complaint: Dyspnea/Respdistress Source: Patient, Medical Record, PMD Present Illness HPI Patient present from nursing facility with reports of change in mental status Hypotension Hypoglycemia Upon arrival the patient appears agitated Presents hypotensive Initially the medical records do not reveal any previous visits However it appeared the patient's name was placed in reverse manner Upon obtaining the appropriate medical records patient just had recent hospitalization fairly extensive hospitalization Patient denies any chest pain or shortness of breath Allergies: Coded Allergies: No Known Allergies (Unverified , 10/17/18) Patient History Past Medical History: see triage record Pertinent Family History: none Reviewed Nursing Documentation: PMH: Agreed; PSxH: Agreed Nursing Documentation-PMH Past Medical History: No History, Except For Hx Cardiac Problems: Yes - CHF, Anemia Hx Hypertension: Yes Hx COPD: Yes History Of Psychiatric Problem: Yes - major depression Review of Systems All Other Systems: limited - Other than the ones mentioned in the history of present illness all others are reviewed however they do stay limited due to the patient's mental status Physical Exam Vital Signs Date Time Temp Pulse Resp B/P (MAP) Pulse Ox O2 Delivery O2 Flow Rate FiO2 11/17/18 13:17 97.3 120 24 61/39 65 Nasal Cannula 4.0 Sp02 EP Interpretation: reviewed, abnormal - low, other - On nonrebreather patient saturating at 95% which is a normal oxygenation General Appearance: moderate distress - Tachypneic, confused Head: normocephalic, atraumatic Eyes: bilateral eye PERRL ENT: dry mucus membranes Neck: supple, no meningismus Respiratory: crackles, wheezing - Bilaterally Cardiovascular #1: tachycardia Gastrointestinal: non tender, soft Musculoskeletal: other - No obvious focal deficit Neurologic: other - Appears confused, however with further coaching does become more localized Skin: normal color - Diffuse rash appears to be healing scar wounds, other Lymphatic: no adenopathy Procedures Critical Care Time Critical Care Time 50 minutes for multiple re-interventions initial critical presentation concerning for cardio cardiopulmonary arrest not including any procedural time, Central Line Central Line : Consent: Emergent Central Line Lumen: triple Maximal Sterile Barrier Tech: yes cap, yes mask, yes sterile gown, yes sterile gloves, yes large sterile sheet, yes hand hygiene, yes chlorhexidine prep Central Line Postion: femoral (R) Anesthesia: Lidocaine cc's of anesthesia: 5 Complications: none Central Line Post Position: sutured Attempts: One Patient Tolerated: Well Complications: None Medical Decision Making Diagnostic Impression: Primary Impression: Respiratory distress Additional Impression: Severe sepsis ER Course Patient is a fairly complex patient with multiple differential to consideration including but not limited to cardiac cardiopulmonary and vascular emergencies Patient initiated on broad spectrum antibiotics IV hydration Require central line placement Patient remained hypotensive and required pressors as well Admitted in critical condition Sepsis reexamination Time:14:45 VS refer to nursing note cvs: RRR respiratory: improved respiration peripheral pulses: 2+radial cap refill:<2 seconds skin exam: warm, dry, not mottled Labs Test 11/18/18 15:40 11/18/18 23:07 11/19/18 00:40 11/19/18 05:00 White Blood Count 6.0 K/UL (4.8-10.8) 4.9 K/UL (4.8-10.8) Red Blood Count 3.16 M/UL (4.70-6.10) 3.49 M/UL (4.70-6.10) Hemoglobin 8.5 G/DL (14.2-18.0) 9.3 G/DL (14.2-18.0) Hematocrit 28.7 % (42.0-52.0) 31.5 % (42.0-52.0) Mean Corpuscular Volume 91 FL (80-99) 90 FL (80-99) Mean Corpuscular Hemoglobin 26.8 PG (27.0-31.0) 26.6 PG (27.0-31.0) Mean Corpuscular Hemoglobin Concent 29.6 G/DL (32.0-36.0) 29.4 G/DL (32.0-36.0) Red Cell Distribution Width 17.8 % (11.6-14.8) 18.4 % (11.6-14.8) Platelet Count 186 K/UL (150-450) 211 K/UL (150-450) Mean Platelet Volume 5.2 FL (6.5-10.1) 5.7 FL (6.5-10.1) Neutrophils (%) (Auto) % (45.0-75.0) % (45.0-75.0) Lymphocytes (%) (Auto) % (20.0-45.0) % (20.0-45.0) Monocytes (%) (Auto) % (1.0-10.0) % (1.0-10.0) Eosinophils (%) (Auto) % (0.0-3.0) % (0.0-3.0) Basophils (%) (Auto) % (0.0-2.0) % (0.0-2.0) Differential Total Cells Counted 100 100 Neutrophils % (Manual) 55 % (45-75) 94 % (45-75) Lymphocytes % (Manual) 28 % (20-45) 5 % (20-45) Monocytes % (Manual) 12 % (1-10) 1 % (1-10) Eosinophils % (Manual) 5 % (0-3) 0 % (0-3) Basophils % (Manual) 0 % (0-2) 0 % (0-2) Band Neutrophils 0 % (0-8) 0 % (0-8) Platelet Estimate Adequate Adequate Platelet Morphology Normal Normal Hypochromasia 1+ 1+ Anisocytosis 1+ 1+ Sodium Level 145 MMOL/L (136-145) 139 MMOL/L (136-145) Potassium Level 5.0 MMOL/L (3.5-5.1) 5.0 MMOL/L (3.5-5.1) Chloride Level 108 MMOL/L (98-107) 106 MMOL/L (98-107) Carbon Dioxide Level 24 MMOL/L (21-32) 30 MMOL/L (21-32) Anion Gap 13 mmol/L (5-15) 3 mmol/L (5-15) Blood Urea Nitrogen 17 mg/dL (7-18) 12 mg/dL (7-18) Creatinine 0.9 MG/DL (0.55-1.30) 0.8 MG/DL (0.55-1.30) Estimat Glomerular Filtration Rate mL/min (>60) mL/min (>60) Glucose Level 92 MG/DL (74-106) 81 MG/DL (74-106) Calcium Level 8.2 MG/DL (8.5-10.1) 8.5 MG/DL (8.5-10.1) Magnesium Level 1.9 MG/DL (1.8-2.4) Total Bilirubin 0.2 MG/DL (0.2-1.0) 0.4 MG/DL (0.2-1.0) Aspartate Amino Transf (AST/SGOT) 24 U/L (15-37) 18 U/L (15-37) Alanine Aminotransferase (ALT/SGPT) 25 U/L (12-78) 19 U/L (12-78) Alkaline Phosphatase 78 U/L (46-116) 74 U/L (46-116) Total Protein 6.4 G/DL (6.4-8.2) 6.9 G/DL (6.4-8.2) Albumin 2.9 G/DL (3.4-5.0) 2.9 G/DL (3.4-5.0) Globulin 3.5 g/dL 4.0 g/dL Albumin/Globulin Ratio 0.8 (1.0-2.7) 0.7 (1.0-2.7) Arterial Blood pH 7.180 (7.350-7.450) 7.226 (7.350-7.450) Arterial Blood Partial Pressure CO2 79.4 mmHg (35.0-45.0) 76.2 mmHg (35.0-45.0) Arterial Blood Partial Pressure O2 75.2 mmHg (75.0-100.0) 77.6 mmHg (75.0-100.0) Arterial Blood HCO3 29.0 mmol/L (22.0-26.0) 30.9 mmol/L (22.0-26.0) Arterial Blood Oxygen Saturation 92.4 % (95-100) 93.4 % (95-100) Arterial Blood Base Excess -0.6 (-2-2) 2 (-2-2) Cameron Test Positive Positive Ovalocytes Rare Troponin I 0.025 ng/mL (0.000-0.056) Pro-B-Type Natriuretic Peptide 6457 pg/mL (0-125) Test 11/19/18 22:33 11/20/18 05:00 Arterial Blood pH 7.225 (7.350-7.450) Arterial Blood Partial Pressure CO2 68.1 mmHg (35.0-45.0) Arterial Blood Partial Pressure O2 87.6 mmHg (75.0-100.0) Arterial Blood HCO3 27.6 mmol/L (22.0-26.0) Arterial Blood Oxygen Saturation 94.6 % (95-100) Arterial Blood Base Excess -0.9 (-2-2) Cameron Test Positive White Blood Count 4.0 K/UL (4.8-10.8) Red Blood Count 3.18 M/UL (4.70-6.10) Hemoglobin 8.6 G/DL (14.2-18.0) Hematocrit 28.5 % (42.0-52.0) Mean Corpuscular Volume 90 FL (80-99) Mean Corpuscular Hemoglobin 26.9 PG (27.0-31.0) Mean Corpuscular Hemoglobin Concent 30.0 G/DL (32.0-36.0) Red Cell Distribution Width 17.5 % (11.6-14.8) Platelet Count 193 K/UL (150-450) Mean Platelet Volume 6.1 FL (6.5-10.1) Neutrophils (%) (Auto) 82.8 % (45.0-75.0) Lymphocytes (%) (Auto) 11.1 % (20.0-45.0) Monocytes (%) (Auto) 5.6 % (1.0-10.0) Eosinophils (%) (Auto) 0.0 % (0.0-3.0) Basophils (%) (Auto) 0.5 % (0.0-2.0) Sodium Level 141 MMOL/L (136-145) Potassium Level 4.5 MMOL/L (3.5-5.1) Chloride Level 105 MMOL/L (98-107) Carbon Dioxide Level 30 MMOL/L (21-32) Anion Gap 6 mmol/L (5-15) Blood Urea Nitrogen 12 mg/dL (7-18) Creatinine 0.8 MG/DL (0.55-1.30) Estimat Glomerular Filtration Rate mL/min (>60) Glucose Level 116 MG/DL (74-106) Calcium Level 8.7 MG/DL (8.5-10.1) Total Bilirubin 0.3 MG/DL (0.2-1.0) Aspartate Amino Transf (AST/SGOT) 15 U/L (15-37) Alanine Aminotransferase (ALT/SGPT) 17 U/L (12-78) Alkaline Phosphatase 62 U/L (46-116) Total Protein 6.7 G/DL (6.4-8.2) Albumin 2.9 G/DL (3.4-5.0) Globulin 3.8 g/dL Albumin/Globulin Ratio 0.8 (1.0-2.7) EKG Diagnostic Results Rate: tachycardiac Rhythm: other ST Segments: other - Nonspecific ST T-wave changes Rhythm Strip Diag. Results EP Interpretation: yes Rate: 110 Rhythm: no PVC's, no ectopy, other - Sinus tach Last Vital Signs Date Time Temp Pulse Resp B/P (MAP) Pulse Ox O2 Delivery O2 Flow Rate FiO2 11/17/18 13:17 97.3 120 24 61/39 65 Nasal Cannula 4.0 Status: improved Disposition: ADMITTED INPATIENT Condition: Critical Referrals: Justus Grewal MD (PCP) Zac Norris DO Nov 17, 2018 14:27
[2018-11-17] MEDS ORDERED: cefTRIAXone 1 GM in NS 55 ML IVPB ONE (14:30)
[2018-11-17 14:36] LABS: APPEARANCE,URINE CLEAR; BILIRUBIN, URINE NEGATIVE (NEGATIVE); COLOR,URINE BROWN; GLUCOSE, URINE (UA) NEGATIVE (NEGATIVE); KETONES,URINE 1+ (NEGATIVE); LEUKOCYTE ESTERASE ,URINE 3+ (NEGATIVE); NITRITE,URINE NEGATIVE (NEGATIVE); PH,URINE 6 (4.5-8.0); PROTEIN,URINE 2+ (NEGATIVE); UROBILINOGEN,URINE 1 MG/DL (0.0-1.0)
[2018-11-17] MEDS ORDERED: DOPamine 400mg/250ml 250 ML IV ONE (15:15)
[2018-11-17] MEDS ORDERED: LEXAPRO20 MG ORAL (16:10)
[2018-11-17] MEDS ORDERED: GABAPENTIN300 MG ORAL (16:10)
[2018-11-17] MEDS ORDERED: IPRATROPIU0.2 MG/1 M HHN (16:10)
[2018-11-17] MEDS ORDERED: CARDIZEM LA180 M1 PO (16:10)
[2018-11-17] MEDS ORDERED: Vancomycin 1.25gm Premix IVPB ONE (20:00)
[2018-11-17] MEDS: Piperacillin/Tazobactam 3.375 GM in D5W 110 ML IVPB SCH (21:51)
[2018-11-17] MEDS: DOPamine 400mg/250ml 250 ML IV SCH (21:52)
[2018-11-17] MEDS: Heparin 5000 units/ml inj SUBQ SCH (21:53)
[2018-11-17] MEDS: Albuterol/Ipratropium 3ml neb HHN SCH (23:28)
[2018-11-18] VITALS (27 sets, daily range): BP systolic 81–133; BP diastolic 47–75
[2018-11-18] MEDS: Albuterol/Ipratropium 3ml neb HHN SCH ×7 (03:34→22:37)
[2018-11-18] MEDS: Piperacillin/Tazobactam 3.375 GM in D5W 110 ML IVPB SCH ×2 (08:37→20:33)
[2018-11-18] MEDS: Thiamine 100mg tab ORAL SCH (08:38)
[2018-11-18] MEDS: Heparin 5000 units/ml inj SUBQ SCH ×2 (08:42→20:35)
[2018-11-18 16:09] LABS: HEMATOCRIT 28.7 % (42.0-52.0); HEMOGLOBIN 8.5 G/DL (14.2-18.0); MEAN CORPUSCULAR VOLUME 91 FL (80-99); PLATELET COUNT 186 K/UL (150-450); RED BLOOD COUNT 3.16 M/UL (4.70-6.10); RED CELL DISTRIBUTION WIDTH 17.8 % (11.6-14.8)
[2018-11-18 19:44] LABS: ALANINE AMINOTRANSFERASE 25 U/L (12-78); ALBUMIN 2.9 G/DL (3.4-5.0); ALBUMIN/GLOBULIN RATIO 0.8 (1.0-2.7); ALKALINE PHOSPHATASE 78 U/L (46-116); ANION GAP 13 mmol/L (5-15); ASPARTATE AMINO TRANSFERASE 24 U/L (15-37); BILIRUBIN,TOTAL 0.2 MG/DL (0.2-1.0); BLOOD UREA NITROGEN 17 mg/dL (7-18); CALCIUM 8.2 MG/DL (8.5-10.1); CARBON DIOXIDE 24 MMOL/L (21-32); CHLORIDE 108 MMOL/L (98-107); CREATININE 0.9 MG/DL (0.55-1.30); SODIUM 145 MMOL/L (136-145)
[2018-11-18] MEDS: DOPamine 400mg/250ml 250 ML IV SCH (19:45)
[2018-11-18] MEDS: Dyna-Hex 2% Top Sol 2oz TOPIC SCH (20:33)
[2018-11-19] VITALS (24 sets, daily range): BP systolic 107–168; BP diastolic 62–93
[2018-11-19] MEDS ORDERED: Heparin1,000 units/500ml Premix(Conc:2 units/ml) IV SCH
[2018-11-19] MEDS ORDERED: Lidocaine 1% Plain 30 ml INJ SCH
[2018-11-19] MEDS: Solu-MEDROL 125mg Inj IVP SCH ×4 (01:00→21:37)
--- NOTE | 2018-11-19 01:50 | Diagnostic Imaging Report ---
EXAM: XR Chest, 1 View CLINICAL HISTORY: COPD TECHNIQUE: Frontal view of the chest. COMPARISON: Chest radiograph dated 10/18/18. FINDINGS: Lungs: Compared to the prior study there is interval development of airspace disease within the left lower lung. Right hilar airspace disease is unchanged. Previously seen right basilar linear airspace disease resolved. Right midlung linear scarring. Pleural space: There is interval development of a small left pleural effusion. No pneumothorax. Heart: Cardiac size is enlarged. Mediastinum: Unremarkable. Bones/joints: Interval development of a nondisplaced right eighth rib fracture. Vasculature: Calculation of the thoracic aorta. IMPRESSION: 1. Interval development of left basilar airspace opacity which could represent pneumonia in the appropriate clinical setting. 2. Interval development of small left pleural effusion. 3. Interval development of a fracture of the right eighth rib.
[2018-11-19] MEDS: Albuterol/Ipratropium 3ml neb HHN SCH ×6 (03:19→23:29)
[2018-11-19 06:18] LABS: HEMATOCRIT 31.5 % (42.0-52.0); HEMOGLOBIN 9.3 G/DL (14.2-18.0); MEAN CORPUSCULAR VOLUME 90 FL (80-99); PLATELET COUNT 211 K/UL (150-450); RED BLOOD COUNT 3.49 M/UL (4.70-6.10); RED CELL DISTRIBUTION WIDTH 18.4 % (11.6-14.8); WHITE BLOOD COUNT 4.9 K/UL (4.8-10.8)
[2018-11-19 06:42] LABS: ALANINE AMINOTRANSFERASE 19 U/L (12-78); ALBUMIN 2.9 G/DL (3.4-5.0); ALBUMIN/GLOBULIN RATIO 0.7 (1.0-2.7); ALKALINE PHOSPHATASE 74 U/L (46-116); ANION GAP 3 mmol/L (5-15); ASPARTATE AMINO TRANSFERASE 18 U/L (15-37); BILIRUBIN,TOTAL 0.4 MG/DL (0.2-1.0); BLOOD UREA NITROGEN 12 mg/dL (7-18); CALCIUM 8.5 MG/DL (8.5-10.1); CARBON DIOXIDE 30 MMOL/L (21-32); CHLORIDE 106 MMOL/L (98-107); CREATININE 0.8 MG/DL (0.55-1.30); SODIUM 139 MMOL/L (136-145)
[2018-11-19] MEDS: Piperacillin/Tazobactam 3.375 GM in D5W 110 ML IVPB SCH ×2 (10:00→20:53)
[2018-11-19] MEDS: Thiamine 100mg tab ORAL SCH (10:22)
[2018-11-19] MEDS: Heparin 5000 units/ml inj SUBQ SCH ×2 (10:56→20:54)
--- NOTE | 2018-11-19 10:59 | Infectious Diseases Prog Note ---
Assessment/Plan Assessment/Plan A: Sepsis Pneumonia Hypercapnic respiratory failure Anemia PVD R eight rib fracture Acute renal failure improved P; Continue Zosyn & Zyvox Will f/u cultures Subjective ROS Limited/Unobtainable: Yes Constitutional: Reports: other - feels better Respiratory: Reports: shortness of breath, productive cough Gastrointestinal/Abdominal: Reports: no symptoms Genitourinary: Reports: no symptoms Allergies: Coded Allergies: No Known Allergies (Unverified , 10/17/18) Objective Vital Signs Last 24 Hour Vital Signs Date Time Temp Pulse Resp B/P (MAP) Pulse Ox O2 Delivery O2 Flow Rate FiO2 11/19/18 08:46 115 26 88 4.0 36 11/19/18 08:00 55 11/19/18 06:56 125 22 94 Venturi Mask 14.0 55 11/19/18 06:56 Venturi Mask 14.0 55 11/19/18 06:55 Venturi Mask 14.0 55 11/19/18 06:55 94 Venturi Mask 14.0 55 11/19/18 06:00 112 20 113/74 (87) 99 11/19/18 05:25 110 22 99 Facial 40 11/19/18 05:00 117 24 121/71 (88) 99 11/19/18 04:00 97.3 117 22 117/73 (88) 98 11/19/18 04:00 50 11/19/18 04:00 Nasal Cannula 3.5 11/19/18 04:00 112 11/19/18 03:27 124 20 100 Bi-pap 40 11/19/18 03:18 120 20 99 Bi-pap 40 11/19/18 03:17 119 20 Facial 40 11/19/18 03:00 118 20 128/71 (90) 99 11/19/18 02:00 124 20 112/66 (81) 100 11/19/18 01:04 131 24 Facial 50 11/19/18 01:00 50 11/19/18 01:00 127 29 118/69 (85) 99 11/19/18 00:00 40 11/19/18 00:00 Nasal Cannula 3.5 11/19/18 00:00 130 11/19/18 00:00 97.2 130 29 134/76 (95) 90 11/18/18 23:37 136 29 Facial 50 11/18/18 23:30 40 11/18/18 23:00 134 32 133/67 (89) 90 11/18/18 22:40 130 26 98 Venturi Mask 8.0 40 11/18/18 22:36 120 32 95 Venturi Mask 10.0 45 11/18/18 22:00 128 30 127/75 (92) 94 11/18/18 21:00 132 27 122/66 (84) 91 11/18/18 20:00 128 11/18/18 20:00 Nasal Cannula 3.5 11/18/18 20:00 97.8 128 27 124/70 (88) 94 11/18/18 19:45 128/70 11/18/18 19:39 126 25 95 Nasal Cannula 4.0 36 11/18/18 19:25 126 28 92 Nasal Cannula 4.0 36 11/18/18 19:24 Nasal Cannula 3.0 32 11/18/18 19:24 94 Nasal Cannula 3.0 32 11/18/18 19:00 130 27 113/64 (80) 95 11/18/18 18:00 138 24 109/65 (80) 91 11/18/18 17:00 98.1 125 22 101/60 (74) 90 11/18/18 16:00 123 28 114/57 (76) 92 11/18/18 16:00 Nasal Cannula 3.5 11/18/18 15:23 126 11/18/18 15:00 142 28 117/58 (77) 85 11/18/18 14:56 118 26 94 Nasal Cannula 3.0 32 11/18/18 14:43 128 29 91 Nasal Cannula 3.0 32 11/18/18 14:00 121 25 110/59 (76) 93 11/18/18 13:00 122 25 109/56 (73) 94 11/18/18 12:00 Nasal Cannula 3.5 11/18/18 12:00 98.8 124 27 100/54 (69) 91 11/18/18 11:33 122 11/18/18 11:00 123 28 104/52 (69) 91 Height (Feet): 5 Height (Inches): 4.00 Weight (Pounds): 107 HEENT: mucous membranes moist Respiratory/Chest: lungs clear, other - Oxygen by mask Cardiovascular: tachycardia, other - R femoral central line Abdomen: soft, non tender Extremities: no edema Neurologic/Psychiatric: alert, responsive Musculoskeletal: atrophy Microbiology Date/Time Source Procedure Growth Status 11/17/18 14:00 Blood Blood Culture - Preliminary NO GROWTH AFTER 24 HOURS Resulted 11/17/18 13:45 Blood Blood Culture - Preliminary NO GROWTH AFTER 24 HOURS Resulted 11/17/18 14:00 Nasal Nares Influenza Types A,B Antigen (SHAWNEE) - Final Complete 11/17/18 14:15 Urine,Clean Catch Urine Culture - Final NO GROWTH AFTER 48 HOURS Complete 11/17/18 14:00 Rectum Received Laboratory Tests Test 11/18/18 15:40 11/18/18 23:07 11/19/18 00:40 11/19/18 05:00 White Blood Count 6.0 K/UL (4.8-10.8) 4.9 K/UL (4.8-10.8) Red Blood Count 3.16 M/UL (4.70-6.10) L 3.49 M/UL (4.70-6.10) L Hemoglobin 8.5 G/DL (14.2-18.0) L 9.3 G/DL (14.2-18.0) L Hematocrit 28.7 % (42.0-52.0) L 31.5 % (42.0-52.0) L Mean Corpuscular Volume 91 FL (80-99) 90 FL (80-99) Mean Corpuscular Hemoglobin 26.8 PG (27.0-31.0) L 26.6 PG (27.0-31.0) L Mean Corpuscular Hemoglobin Concent 29.6 G/DL (32.0-36.0) L 29.4 G/DL (32.0-36.0) L Red Cell Distribution Width 17.8 % (11.6-14.8) H 18.4 % (11.6-14.8) H Platelet Count 186 K/UL (150-450) 211 K/UL (150-450) Mean Platelet Volume 5.2 FL (6.5-10.1) L 5.7 FL (6.5-10.1) L Neutrophils (%) (Auto) % (45.0-75.0) % (45.0-75.0) Lymphocytes (%) (Auto) % (20.0-45.0) % (20.0-45.0) Monocytes (%) (Auto) % (1.0-10.0) % (1.0-10.0) Eosinophils (%) (Auto) % (0.0-3.0) % (0.0-3.0) Basophils (%) (Auto) % (0.0-2.0) % (0.0-2.0) Differential Total Cells Counted 100 100 Neutrophils % (Manual) 55 % (45-75) 94 % (45-75) H Lymphocytes % (Manual) 28 % (20-45) 5 % (20-45) L Monocytes % (Manual) 12 % (1-10) H 1 % (1-10) Eosinophils % (Manual) 5 % (0-3) H 0 % (0-3) Basophils % (Manual) 0 % (0-2) 0 % (0-2) Band Neutrophils 0 % (0-8) 0 % (0-8) Platelet Estimate Adequate Adequate Platelet Morphology Normal Normal Hypochromasia 1+ 1+ Anisocytosis 1+ 1+ Sodium Level 145 MMOL/L (136-145) 139 MMOL/L (136-145) Potassium Level 5.0 MMOL/L (3.5-5.1) 5.0 MMOL/L (3.5-5.1) Chloride Level 108 MMOL/L (98-107) H 106 MMOL/L (98-107) Carbon Dioxide Level 24 MMOL/L (21-32) 30 MMOL/L (21-32) Anion Gap 13 mmol/L (5-15) 3 mmol/L (5-15) L Blood Urea Nitrogen 17 mg/dL (7-18) 12 mg/dL (7-18) Creatinine 0.9 MG/DL (0.55-1.30) # 0.8 MG/DL (0.55-1.30) Estimat Glomerular Filtration Rate mL/min (>60) mL/min (>60) Glucose Level 92 MG/DL (74-106) 81 MG/DL (74-106) Calcium Level 8.2 MG/DL (8.5-10.1) L 8.5 MG/DL (8.5-10.1) Magnesium Level 1.9 MG/DL (1.8-2.4) Total Bilirubin 0.2 MG/DL (0.2-1.0) 0.4 MG/DL (0.2-1.0) Aspartate Amino Transf (AST/SGOT) 24 U/L (15-37) 18 U/L (15-37) Alanine Aminotransferase (ALT/SGPT) 25 U/L (12-78) 19 U/L (12-78) Alkaline Phosphatase 78 U/L (46-116) 74 U/L (46-116) Total Protein 6.4 G/DL (6.4-8.2) 6.9 G/DL (6.4-8.2) Albumin 2.9 G/DL (3.4-5.0) L 2.9 G/DL (3.4-5.0) L Globulin 3.5 g/dL 4.0 g/dL Albumin/Globulin Ratio 0.8 (1.0-2.7) L 0.7 (1.0-2.7) L Arterial Blood pH 7.180 (7.350-7.450) 7.226 (7.350-7.450) Arterial Blood Partial Pressure CO2 79.4 mmHg (35.0-45.0) *H 76.2 mmHg (35.0-45.0) *H Arterial Blood Partial Pressure O2 75.2 mmHg (75.0-100.0) 77.6 mmHg (75.0-100.0) Arterial Blood HCO3 29.0 mmol/L (22.0-26.0) H 30.9 mmol/L (22.0-26.0) H Arterial Blood Oxygen Saturation 92.4 % (95-100) L 93.4 % (95-100) L Arterial Blood Base Excess -0.6 (-2-2) 2 (-2-2) Cameron Test Positive Positive Ovalocytes Rare Troponin I 0.025 ng/mL (0.000-0.056) Pro-B-Type Natriuretic Peptide 6457 pg/mL (0-125) H Current Medications Medications (Trade) Dose Ordered Sig/Aimee Route PRN Reason Start Time Stop Time Status Last Admin Dose Admin Albuterol/ Ipratropium (Albuterol/ Ipratropium) 3 ml Q4HRT HHN 11/17/18 23:00 11/22/18 22:59 11/19/18 03:19 Chlorhexidine Gluconate (Mayra-Hex 2%) 1 applic DAILY@1999 TOPIC 11/18/18 20:00 12/18/18 19:59 11/18/18 20:33 Chlorhexidine Gluconate (Mayra-Hex 2%) 1 applic DAILY@1999 TOPIC 11/19/18 20:00 12/19/18 19:59 Famotidine (Pepcid) 20 mg BID ORAL 11/18/18 09:00 12/18/18 08:59 11/19/18 10:22 Folic Acid (Folate) 1 mg DAILY ORAL 11/18/18 09:00 12/18/18 08:59 11/19/18 10:22 Gabapentin (Neurontin) 300 mg THREE TIMES A DAY ORAL 11/18/18 09:00 12/18/18 08:59 11/19/18 10:22 Heparin Sodium (Porcine) (Heparin 5000 units/ml) 5,000 units EVERY 12 HOURS SUBQ 11/17/18 21:00 12/17/18 20:59 11/18/18 20:35 Linezolid 300 ml @ 300 mls/hr Q12HR IVPB 11/18/18 11:00 11/25/18 10:59 11/19/18 10:00 Methylprednisolone Sodium Succinate (Solu-MEDROL) 60 mg EVERY 8 HOURS IVP 11/18/18 23:45 12/18/18 23:44 11/19/18 06:00 Piperacillin Sod/ Tazobactam Sod 3.375 gm/Dextrose 110 ml @ 27.5 mls/hr EVERY 12 HOURS IVPB 11/17/18 20:00 11/22/18 19:59 11/19/18 10:00 Sodium Chloride 1,000 ml @ 100 mls/hr Q10H IV 11/17/18 19:30 12/17/18 19:29 11/19/18 03:29 Thiamine HCl (Vitamin B1) 100 mg DAILY ORAL 11/18/18 09:00 12/18/18 08:59 11/19/18 10:22 Jez Espinoza MD Nov 19, 2018 10:59
--- NOTE | 2018-11-19 11:19 | General Progress Note ---
Assessment/Plan Problem List: (1) PNA (pneumonia) ICD Codes: J18.9 - Pneumonia, unspecified organism SNOMED: 349840843 (2) Opiate dependence, continuous ICD Codes: F11.20 - Opioid dependence, uncomplicated SNOMED: 095685885 (3) CHF (congestive heart failure) ICD Codes: I50.9 - CHF (congestive heart failure) SNOMED: 96932594 (4) Tachycardia ICD Codes: R00.0 - Tachycardia, unspecified SNOMED: 3444233 (5) HTN (hypertension) ICD Codes: I10 - Essential (primary) hypertension SNOMED: 10218871 (6) COPD exacerbation ICD Codes: J44.1 - Chronic obstructive pulmonary disease with (acute) exacerbation SNOMED: 006646914, 252232415 (7) Respiratory distress ICD Codes: R06.03 - Acute respiratory distress SNOMED: 486427757 (8) Severe sepsis ICD Codes: A41.9 - Sepsis, unspecified organism; R65.20 - Severe sepsis without septic shock SNOMED: 57283071 Status: stable Assessment/Plan cont current rx resp care abx monitor cxr bipap if cooperative constantino Subjective ROS Limited/Unobtainable: No Constitutional: Reports: malaise, weakness HEENT: Reports: no symptoms Cardiovascular: Reports: no symptoms Respiratory: Reports: cough, shortness of breath Gastrointestinal/Abdominal: Reports: no symptoms Genitourinary: Reports: no symptoms Neurologic/Psychiatric: Reports: no symptoms Endocrine: Reports: no symptoms Hematologic/Lymphatic: Reports: no symptoms Allergies: Coded Allergies: No Known Allergies (Unverified , 10/17/18) All Systems: reviewed and negative except above Subjective remains uncooperative with care. refusing bipap. on venti mask. still with significant resp acidosis. cxr noted. on abx Objective Last 24 Hour Vital Signs Date Time Temp Pulse Resp B/P (MAP) Pulse Ox O2 Delivery O2 Flow Rate FiO2 11/19/18 08:46 115 26 88 4.0 36 11/19/18 08:00 55 11/19/18 06:56 125 22 94 Venturi Mask 14.0 55 11/19/18 06:56 Venturi Mask 14.0 55 11/19/18 06:55 Venturi Mask 14.0 55 11/19/18 06:55 94 Venturi Mask 14.0 55 11/19/18 06:00 112 20 113/74 (87) 99 11/19/18 05:25 110 22 99 Facial 40 11/19/18 05:00 117 24 121/71 (88) 99 11/19/18 04:00 97.3 117 22 117/73 (88) 98 11/19/18 04:00 50 11/19/18 04:00 Nasal Cannula 3.5 11/19/18 04:00 112 11/19/18 03:27 124 20 100 Bi-pap 40 11/19/18 03:18 120 20 99 Bi-pap 40 11/19/18 03:17 119 20 Facial 40 11/19/18 03:00 118 20 128/71 (90) 99 11/19/18 02:00 124 20 112/66 (81) 100 11/19/18 01:04 131 24 Facial 50 11/19/18 01:00 50 11/19/18 01:00 127 29 118/69 (85) 99 11/19/18 00:00 40 11/19/18 00:00 Nasal Cannula 3.5 11/19/18 00:00 130 11/19/18 00:00 97.2 130 29 134/76 (95) 90 11/18/18 23:37 136 29 Facial 50 11/18/18 23:30 40 11/18/18 23:00 134 32 133/67 (89) 90 11/18/18 22:40 130 26 98 Venturi Mask 8.0 40 11/18/18 22:36 120 32 95 Venturi Mask 10.0 45 11/18/18 22:00 128 30 127/75 (92) 94 11/18/18 21:00 132 27 122/66 (84) 91 11/18/18 20:00 128 11/18/18 20:00 Nasal Cannula 3.5 11/18/18 20:00 97.8 128 27 124/70 (88) 94 11/18/18 19:45 128/70 11/18/18 19:39 126 25 95 Nasal Cannula 4.0 36 11/18/18 19:25 126 28 92 Nasal Cannula 4.0 36 11/18/18 19:24 Nasal Cannula 3.0 32 11/18/18 19:24 94 Nasal Cannula 3.0 32 11/18/18 19:00 130 27 113/64 (80) 95 11/18/18 18:00 138 24 109/65 (80) 91 11/18/18 17:00 98.1 125 22 101/60 (74) 90 11/18/18 16:00 123 28 114/57 (76) 92 11/18/18 16:00 Nasal Cannula 3.5 11/18/18 15:23 126 11/18/18 15:00 142 28 117/58 (77) 85 11/18/18 14:56 118 26 94 Nasal Cannula 3.0 32 11/18/18 14:43 128 29 91 Nasal Cannula 3.0 32 11/18/18 14:00 121 25 110/59 (76) 93 11/18/18 13:00 122 25 109/56 (73) 94 11/18/18 12:00 Nasal Cannula 3.5 11/18/18 12:00 98.8 124 27 100/54 (69) 91 11/18/18 11:33 122 Intake and Output 11/18/18 11/19/18 19:00 07:00 Intake Total 2010.0 ml 1760.0 ml Output Total 780 ml 580 ml Balance 1230.0 ml 1180.0 ml Intake Oral 400 ml 150 ml IV Total 1610.0 ml 1610.0 ml Output Urine Total 780 ml 580 ml # Bowel Movements 1 Laboratory Tests 11/18/18 15:40: White Blood Count 6.0, Red Blood Count 3.16L, Hemoglobin 8.5L, Hematocrit 28.7L , Mean Corpuscular Volume 91, Mean Corpuscular Hemoglobin 26.8L, Mean Corpuscular Hemoglobin Concent 29.6L, Red Cell Distribution Width 17.8H, Platelet Count 186, Mean Platelet Volume 5.2L, Neutrophils (%) (Auto) , Lymphocytes (%) (Auto) , Monocytes (%) (Auto) , Eosinophils (%) (Auto) , Basophils (%) (Auto) , Differential Total Cells Counted 100, Neutrophils % ( Manual) 55, Lymphocytes % (Manual) 28, Monocytes % (Manual) 12H, Eosinophils % ( Manual) 5H, Basophils % (Manual) 0, Band Neutrophils 0, Platelet Estimate Adequate, Platelet Morphology Normal, Hypochromasia 1+, Anisocytosis 1+, Sodium Level 145, Potassium Level 5.0, Chloride Level 108H, Carbon Dioxide Level 24, Anion Gap 13, Blood Urea Nitrogen 17, Creatinine 0.9#, Estimat Glomerular Filtration Rate , Glucose Level 92, Calcium Level 8.2L, Magnesium Level 1.9, Total Bilirubin 0.2, Aspartate Amino Transf (AST/SGOT) 24, Alanine Aminotransferase (ALT/SGPT) 25, Alkaline Phosphatase 78, Total Protein 6.4, Albumin 2.9L, Globulin 3.5, Albumin/Globulin Ratio 0.8L 11/18/18 23:07: Arterial Blood pH 7.180*L, Arterial Blood Partial Pressure CO2 79.4*H, Arterial Blood Partial Pressure O2 75.2, Arterial Blood HCO3 29.0H, Arterial Blood Oxygen Saturation 92.4L, Arterial Blood Base Excess -0.6, Cameron Test Positive 11/19/18 00:40: Arterial Blood pH 7.226*L, Arterial Blood Partial Pressure CO2 76.2*H, Arterial Blood Partial Pressure O2 77.6, Arterial Blood HCO3 30.9H, Arterial Blood Oxygen Saturation 93.4L, Arterial Blood Base Excess 2, Cameron Test Positive 11/19/18 05:00: White Blood Count 4.9, Red Blood Count 3.49L, Hemoglobin 9.3L, Hematocrit 31.5L , Mean Corpuscular Volume 90, Mean Corpuscular Hemoglobin 26.6L, Mean Corpuscular Hemoglobin Concent 29.4L, Red Cell Distribution Width 18.4H, Platelet Count 211, Mean Platelet Volume 5.7L, Neutrophils (%) (Auto) , Lymphocytes (%) (Auto) , Monocytes (%) (Auto) , Eosinophils (%) (Auto) , Basophils (%) (Auto) , Differential Total Cells Counted 100, Neutrophils % ( Manual) 94H, Lymphocytes % (Manual) 5L, Monocytes % (Manual) 1, Eosinophils % ( Manual) 0, Basophils % (Manual) 0, Band Neutrophils 0, Platelet Estimate Adequate, Platelet Morphology Normal, Hypochromasia 1+, Anisocytosis 1+, Sodium Level 139, Potassium Level 5.0, Chloride Level 106, Carbon Dioxide Level 30, Anion Gap 3L, Blood Urea Nitrogen 12, Creatinine 0.8, Estimat Glomerular Filtration Rate , Glucose Level 81, Calcium Level 8.5, Total Bilirubin 0.4, Aspartate Amino Transf (AST/SGOT) 18, Alanine Aminotransferase (ALT/SGPT) 19, Alkaline Phosphatase 74, Total Protein 6.9, Albumin 2.9L, Globulin 4.0, Albumin/ Globulin Ratio 0.7L, Ovalocytes Rare, Troponin I 0.025, Pro-B-Type Natriuretic Peptide 6457H Height (Feet): 5 Height (Inches): 4.00 Weight (Pounds): 107 General Appearance: WD/WN, alert, confused, thin Neck: supple Cardiovascular: normal rate, regular rhythm Respiratory/Chest: rhonchi - bilaterally, expiratory wheezing Abdomen: normal bowel sounds, non tender, soft, no organomegaly Edema: no edema noted Arm (L), no edema noted Arm (R), no edema noted Leg (L), no edema noted Leg (R), no edema noted Pedal (L), no edema noted Pedal (R), no edema noted Generalized Neurologic: impregnation operator II-XII grossly normal, alert, oriented x 3 Varun Stewart MD Nov 19, 2018 11:19
[2018-11-19] MEDS ORDERED: Tubing IV Secondary IV ONE (19:05)
[2018-11-19] MEDS ORDERED: Dyna-Hex 2% Top Sol 2oz TOPIC SCH (20:00)
[2018-11-19] MEDS: Dyna-Hex 2% Top Sol 2oz TOPIC SCH (20:16)
[2018-11-20] VITALS (15 sets, daily range): BP systolic 110–152; BP diastolic 60–89
[2018-11-20] MEDS: Albuterol/Ipratropium 3ml neb HHN SCH ×5 (03:28→23:00)
[2018-11-20 05:40] LABS: BASOPHILS % (AUTO) 0.5 % (0.0-2.0); HEMATOCRIT 28.5 % (42.0-52.0); HEMOGLOBIN 8.6 G/DL (14.2-18.0); LYMPHOCYTES % (AUTO) 11.1 % (20.0-45.0); MEAN CORPUSCULAR VOLUME 90 FL (80-99); MONOCYTES % (AUTO) 5.6 % (1.0-10.0); NEUTROPHILS % (AUTO) 82.8 % (45.0-75.0); PLATELET COUNT 193 K/UL (150-450); RED BLOOD COUNT 3.18 M/UL (4.70-6.10); RED CELL DISTRIBUTION WIDTH 17.5 % (11.6-14.8)
[2018-11-20] MEDS: Solu-MEDROL 125mg Inj IVP SCH ×3 (06:00→21:55)
[2018-11-20 06:11] LABS: ALANINE AMINOTRANSFERASE 17 U/L (12-78); ALBUMIN 2.9 G/DL (3.4-5.0); ALBUMIN/GLOBULIN RATIO 0.8 (1.0-2.7); ALKALINE PHOSPHATASE 62 U/L (46-116); ANION GAP 6 mmol/L (5-15); ASPARTATE AMINO TRANSFERASE 15 U/L (15-37); BILIRUBIN,TOTAL 0.3 MG/DL (0.2-1.0); BLOOD UREA NITROGEN 12 mg/dL (7-18); CALCIUM 8.7 MG/DL (8.5-10.1); CARBON DIOXIDE 30 MMOL/L (21-32); CHLORIDE 105 MMOL/L (98-107); CREATININE 0.8 MG/DL (0.55-1.30); POTASSIUM 4.5 MMOL/L (3.5-5.1); SODIUM 141 MMOL/L (136-145)
--- NOTE | 2018-11-20 08:23 | General Progress Note ---
Assessment/Plan Problem List: (1) PNA (pneumonia) ICD Codes: J18.9 - Pneumonia, unspecified organism SNOMED: 876149356 (2) Opiate dependence, continuous ICD Codes: F11.20 - Opioid dependence, uncomplicated SNOMED: 760221861 (3) CHF (congestive heart failure) ICD Codes: I50.9 - CHF (congestive heart failure) SNOMED: 35106969 (4) Tachycardia ICD Codes: R00.0 - Tachycardia, unspecified SNOMED: 1227390 (5) HTN (hypertension) ICD Codes: I10 - Essential (primary) hypertension SNOMED: 89012512 (6) COPD exacerbation ICD Codes: J44.1 - Chronic obstructive pulmonary disease with (acute) exacerbation SNOMED: 243260794, 038602711 (7) Respiratory distress ICD Codes: R06.03 - Acute respiratory distress SNOMED: 578655411 (8) Severe sepsis ICD Codes: A41.9 - Sepsis, unspecified organism; R65.20 - Severe sepsis without septic shock SNOMED: 10739096 Status: stable Assessment/Plan cont current rx resp care abx monitor cxr bipap if cooperative constantino Subjective ROS Limited/Unobtainable: No Constitutional: Reports: malaise, weakness HEENT: Reports: no symptoms Cardiovascular: Reports: no symptoms Respiratory: Reports: cough, shortness of breath Gastrointestinal/Abdominal: Reports: no symptoms Genitourinary: Reports: no symptoms Neurologic/Psychiatric: Reports: anxiety Endocrine: Reports: no symptoms Hematologic/Lymphatic: Reports: no symptoms Allergies: Coded Allergies: No Known Allergies (Unverified , 10/17/18) All Systems: reviewed and negative except above Subjective no events. agitated. refusing bipap. no fevers. eats well. Objective Last 24 Hour Vital Signs Date Time Temp Pulse Resp B/P (MAP) Pulse Ox O2 Delivery O2 Flow Rate FiO2 11/20/18 07:27 103 22 97 Venturi Mask 12.0 50 11/20/18 07:27 Venturi Mask 12.0 50 11/20/18 07:26 98 Venturi Mask 12.0 50 11/20/18 07:26 Venturi Mask 12.0 50 11/20/18 07:26 97 22 98 12.0 50 11/20/18 07:00 79 21 128/73 (91) 100 11/20/18 06:00 82 21 125/75 (92) 100 11/20/18 05:20 108 24 100 12.0 50 11/20/18 05:00 95 23 119/75 (90) 99 11/20/18 04:00 Venturi Mask 11/20/18 04:00 55 11/20/18 04:00 108 11/20/18 04:00 97.2 108 26 122/74 (90) 98 11/20/18 03:23 99 22 100 Venturi Mask 12.0 50 11/20/18 03:15 101 21 99 12.0 50 11/20/18 03:15 101 21 99 Venturi Mask 12.0 50 11/20/18 03:00 100 21 134/66 (88) 98 11/20/18 02:00 99 25 134/89 (104) 92 11/20/18 01:24 87 21 97 12.0 50 11/20/18 01:00 90 21 152/74 (100) 98 11/20/18 00:44 97.6 100 23 110/73 (85) 100 11/20/18 00:00 55 11/20/18 00:00 100 11/20/18 00:00 Venturi Mask 11/20/18 00:00 97.6 100 23 110/73 (85) 100 11/19/18 23:39 99 22 96 Venturi Mask 12.0 50 11/19/18 23:29 99 24 100 12.0 50 11/19/18 23:29 99 24 100 Venturi Mask 12.0 50 11/19/18 23:00 101 22 108/62 (77) 93 11/19/18 22:00 101 22 108/62 (77) 93 11/19/18 21:25 114 22 94 12.0 50 11/19/18 21:00 103 28 114/69 (84) 99 11/19/18 20:00 55 11/19/18 20:00 97.2 103 22 131/86 (101) 100 11/19/18 20:00 103 11/19/18 20:00 Venturi Mask 11/19/18 19:53 101 20 100 Venturi Mask 12.0 50 11/19/18 19:44 107 20 99 Venturi Mask 12.0 50 11/19/18 19:44 107 20 99 12.0 50 11/19/18 19:44 99 Venturi Mask 12.0 50 11/19/18 19:44 Venturi Mask 12.0 50 11/19/18 19:00 107 29 136/88 (104) 100 11/19/18 18:00 106 28 107/67 (80) 100 11/19/18 17:12 111 24 95 14.0 55 11/19/18 17:00 108 24 126/83 (97) 97 11/19/18 16:00 55 11/19/18 16:00 97.8 105 24 110/69 (83) 95 11/19/18 16:00 105 11/19/18 16:00 Venturi Mask 11/19/18 15:08 124 22 97 Venturi Mask 14.0 55 11/19/18 15:08 Venturi Mask 14.0 55 11/19/18 15:07 117 22 97 14.0 55 11/19/18 15:00 120 22 168/84 (112) 92 11/19/18 14:00 110 29 128/77 (94) 94 11/19/18 13:00 104 25 120/69 (86) 97 11/19/18 13:00 106 24 95 14.0 55 11/19/18 12:00 97.4 106 23 126/85 (99) 97 11/19/18 12:00 55 11/19/18 12:00 109 11/19/18 12:00 Venturi Mask 11/19/18 11:21 119 24 95 Venturi Mask 14.0 55 11/19/18 11:21 Venturi Mask 14.0 55 11/19/18 11:20 119 22 94 14.0 55 11/19/18 11:00 113 24 121/78 (92) 97 11/19/18 10:00 116 24 126/79 (95) 99 11/19/18 09:00 115 23 122/71 (88) 97 11/19/18 08:46 115 26 88 4.0 36 Intake and Output 11/19/18 11/20/18 19:00 07:00 Intake Total 1830.0 ml 2170.0 ml Output Total 650 ml 760 ml Balance 1180.0 ml 1410.0 ml Intake Oral 320 ml 560 ml IV Total 1510.0 ml 1610.0 ml Output Urine Total 650 ml 760 ml # Bowel Movements 4 1 Laboratory Tests 11/19/18 22:33: Arterial Blood pH 7.225*L, Arterial Blood Partial Pressure CO2 68.1*H, Arterial Blood Partial Pressure O2 87.6, Arterial Blood HCO3 27.6H, Arterial Blood Oxygen Saturation 94.6L, Arterial Blood Base Excess -0.9, Cameron Test Positive 11/20/18 05:00: White Blood Count 4.0L, Red Blood Count 3.18L, Hemoglobin 8.6L, Hematocrit 28.5L , Mean Corpuscular Volume 90, Mean Corpuscular Hemoglobin 26.9L, Mean Corpuscular Hemoglobin Concent 30.0L, Red Cell Distribution Width 17.5H, Platelet Count 193, Mean Platelet Volume 6.1L, Neutrophils (%) (Auto) 82.8H, Lymphocytes (%) (Auto) 11.1L, Monocytes (%) (Auto) 5.6, Eosinophils (%) (Auto) 0.0, Basophils (%) (Auto) 0.5, Sodium Level 141, Potassium Level 4.5, Chloride Level 105, Carbon Dioxide Level 30, Anion Gap 6, Blood Urea Nitrogen 12, Creatinine 0.8, Estimat Glomerular Filtration Rate , Glucose Level 116H, Calcium Level 8.7, Total Bilirubin 0.3, Aspartate Amino Transf (AST/SGOT) 15, Alanine Aminotransferase (ALT/SGPT) 17, Alkaline Phosphatase 62, Total Protein 6.7, Albumin 2.9L, Globulin 3.8, Albumin/Globulin Ratio 0.8L Height (Feet): 5 Height (Inches): 4.00 Weight (Pounds): 108 General Appearance: WD/WN, alert Neck: supple Cardiovascular: normal rate Respiratory/Chest: rhonchi - bilaterally, expiratory wheezing Abdomen: normal bowel sounds, non tender, soft, no organomegaly Edema: no edema noted Arm (L), no edema noted Arm (R), no edema noted Leg (L), no edema noted Leg (R), no edema noted Pedal (L), no edema noted Pedal (R), no edema noted Generalized Neurologic: alert Varun Stewart MD Nov 20, 2018 08:23
[2018-11-20] MEDS: Heparin 5000 units/ml inj SUBQ SCH ×2 (08:32→21:14)
[2018-11-20] MEDS: Piperacillin/Tazobactam 3.375 GM in D5W 110 ML IVPB SCH ×2 (08:33→21:13)
[2018-11-20] MEDS: Thiamine 100mg tab ORAL SCH (08:35)
[2018-11-20] MEDS ORDERED: Lidocaine 1% Plain 30 ml INJ SCH (10:00)
[2018-11-20] MEDS ORDERED: Heparin1,000 units/500ml Premix(Conc:2 units/ml) IV SCH (10:00)
[2018-11-20] MEDS ORDERED: Heparin1,000 units/500ml Premix(Conc:2 units/ml) IV PRN (11:15)
[2018-11-20] MEDS ORDERED: Lidocaine 1% Plain 30 ml INJ PRN (11:15)
--- NOTE | 2018-11-20 11:19 | Diagnostic Imaging Report ---
Indication: Shortness of breath Technique: One view of the chest Comparison: 11/19/2018 Findings: Bilateral interstitial and airspace edema, perihilar atelectatic changes, and patchy consolidative opacities are again demonstrated. Left pleural effusion is again demonstrated. Cardiomegaly persists. Previously reported right great rib fracture deformity is not evident on this exam Impression: Unchanged, over one day, findings as above.
--- NOTE | 2018-11-20 12:45 | Progress Note ---
CARDIOLOGY PROGRESS NOTE DATE: 11/19/2018 SUBJECTIVE: The patient remains uncooperative with care at times. He refused BiPAP. He has a Ventimask on. He remains in significant respiratory distress and abnormal blood gases. He is on broad spectrum antibiotics. OBJECTIVE: VITAL SIGNS: Blood pressure 115/74, pulse 112, and respirations 20. Afebrile. Accessory muscle use. NECK: Jugular venous pressure elevated. LUNGS: Diminished breath sounds. Scattered expiratory wheezes and rhonchi. HEART: Regular rhythm. Rapid rate. Normal S1, S2. ABDOMEN: Soft. EXTREMITIES: Trace edema. LABORATORY DATA: White count 4.9, hemoglobin 9.3. Sodium 139. Troponin negative. Potassium 5, bicarb 30, BUN 12, creatinine 0.8. Pro-natriuretic peptide is 6400. Albumin 2.9. ABG, pH 7.23/76/77. IMPRESSION: 1. Acute on chronic respiratory acidosis. 2. Hypoxia. 3. Healthcare-acquired pneumonia. 4. Chronic obstructive pulmonary disease exacerbation. 5. Right-sided heart failure. 6. Pulmonary hypertension. 7. Elevated natriuretic peptide assay likely due to above. 8. Moderate protein calorie malnutrition. PLAN: 1. Steroid. 2. Antimicrobials. 3. Respiratory hygiene. 4. Bronchodilators. 5. Nutritional support. 6. Follow up chest x-ray. 7. Follow up ABG. 8. Critical and guarded at this time. 9. Continue DVT and stress ulcer prophylaxes. Justus Grewal M.D. DR: IVAN JOB#: [id number] CC:
--- NOTE | 2018-11-20 12:45 | Progress Note ---
DATE: 11/18/2018 CARDIOLOGY CRITICAL CARE PROGRESS NOTE SUBJECTIVE: Condition has deteriorated. The patient has become acutely short of breath. He received a breathing treatment with inhaled bronchodilator, but did not improve. An ABG was obtained, result, 7.18, 79, and 75. LABORATORY DATA: Labs today, sodium 145, potassium 5, bicarb 24, BUN 17, and creatinine 0.9. Albumin 2.9. Magnesium 1.9. White count 6 and hemoglobin 8.5. PHYSICAL EXAMINATION: LUNGS: Diminished breath sounds. Expiratory wheezes. CARDIAC: Regular rhythm. Rapid rate. Normal S1 and S2. Monitored rhythm is sinus tachycardia and episodes of atrial fibrillation. ABDOMEN: Soft. EXTREMITIES: No edema. Baseline dermatitis on lower extremities. There is a right femoral line in place. IMPRESSION: 1. Acute respiratory failure. 2. Acute on chronic respiratory acidosis. 3. Hypoxia. 4. Healthcare-acquired pneumonia. 5. Methadone dependence. 6. History of heroin abuse. 7. Paroxysmal atrial fibrillation. 8. Sinus tachycardia. 9. Acute myocardial ischemia. PLAN: Antibiotics per Infectious Disease marine consultant. Intravenous steroids. BiPAP support. May need intubation and mechanical ventilation if fails to respond. DVT and stress ulcer prophylaxis. PICC line will be requested and the femoral line removed. Justus Grewal M.D. DR: SACHIN JOB#: [id number] CC:
--- NOTE | 2018-11-20 13:00 | Consultation ---
DATE OF CONSULTATION: 11/17/2018 CARDIOLOGY CONSULTATION CONSULTING PHYSICIAN: Justus Grewal M.D. REQUESTING PHYSICIAN: Varun Stewart M.D. REASON FOR CONSULTATION: Shock. HISTORY OF PRESENT ILLNESS: This is a 73-year-old male, who was recently hospitalized with pneumonia and complications of COPD. He was discharged to a alf facility for rehabilitation. He has been improving steadily for the past few weeks. He became increasingly congested, short of breath, hypoxic, and hypotensive today and was transferred to the emergency room. He did not have any antecedent symptoms noted. He was notably hypotensive and given several liters of fluid in the emergency room without adequate response and ultimately required initiation of pressors with the admission to an intensive care unit. PAST MEDICAL HISTORY: COPD, affective disorder, hypertension, diastolic and systolic congestive heart failure, chronic kidney disease, anemia, peripheral artery disease, and chronic lower extremity venous ulcerations. ALLERGIES: None. MEDICATIONS: Reviewed and reconciled. SOCIAL HISTORY: Positive for smoking and prior history of substance abuse. Prior alcohol use and history of methadone dependence. REVIEW OF SYSTEMS: He had an HIV test in October 2018 at this hospital and was HIV negative. He had a venous duplex scan at this facility in October 2018 and was noted to have no DVT. Lower extremity arterial duplex revealed no stenosis of the large vessels. An echocardiogram revealed normal ejection fraction with a diastolic relaxation abnormality and severe pulmonary hypertension with PA systolic of 86 and mild aortic valve sclerosis with adequate cusp excursion. No history of diabetes or thyroid impairment. No history of seizures. PHYSICAL EXAMINATION: GENERAL: Ill-appearing, frail. VITAL SIGNS: Blood pressure 79/52, heart rate 108, respiratory rate 18, and afebrile. HEENT: Temporal wasting. Pale conjunctivae. Oropharynx clear. NECK: Supple. LUNGS: With bilateral rhonchi. CARDIAC: Regular rhythm. Rapid rate. Normal S1, S2 with a 1/6 systolic murmur at the lower left sternal border. ABDOMEN: Soft and nontender. EXTREMITIES: Stasis derm changes and trace edema. NEUROLOGIC: Reveals decreased sensorium, but no focality. LABORATORY DATA: White count 8, hemoglobin 10.6. Lactic acid 1.2, BUN 34, creatinine 3.1, potassium 5, bicarbonate 31, sodium 139, albumin 3.2. Pro-natriuretic peptide 683. IMPRESSION: 1. Shock. 2. Probable sepsis. 3. Hypovolemia. 4. Acute renal failure. 5. Acute and chronic diastolic congestive heart failure. 6. Severe pulmonary hypertension. 7. Mild protein-calorie malnutrition. 8. COPD. 9. Paroxysmal bronchospasm. 10. Possible recurring healthcare-acquired pneumonia. 11. Urinary tract infection. 12. Critical and guarded. PLAN: 1. ICU care. 2. Pressor support, taper as able. 3. IV fluids. 4. Monitor renal and cardiovascular parameters. 5. Nutritional support. 6. DVT prophylaxis. 7. Consider Revatio therapy for pulmonary hypertension, long-term. 8. We will follow. Justus Grewal M.D. DR: NABILA JOB#: [id number] CC:
--- NOTE | 2018-11-20 13:00 | Consultation ---
DATE OF CONSULTATION: 11/18/2018 INFECTIOUS DISEASES CONSULTATION CONSULTING PHYSICIAN: Jessy Zabala M.D. REFERRING PHYSICIAN: Justus Grewal M.D. REASON FOR CONSULTATION: Pneumonia. HISTORY OF PRESENTING ILLNESS: This is a 73-year-old gentleman with history of congestive heart failure, anemia, hypertension, COPD, depression, who comes in with altered mental status. He was found to be hypotensive. There is a concern for sepsis and pneumonia and an Infectious Diseases consultation has been obtained for antibiotics. PAST MEDICAL HISTORY: 1. History of congestive heart failure. 2. Anemia. 3. Hypertension. 4. COPD. 5. Major depression. SOCIAL HISTORY: Unknown. FAMILY HISTORY: Unknown. REVIEW OF SYSTEMS: Unable to obtain currently. MEDICATIONS: As an inpatient, he is on famotidine, gabapentin, thiamine, folic acid, albuterol, ipratropium, subcutaneous heparin, Zosyn, dopamine, and vancomycin. ALLERGIES: No known drug allergies. PHYSICAL EXAMINATION: VITAL SIGNS: Temperature of 98.1, T-max of 98.4, pulse of 123, respiratory rate 25, blood pressure 92/54, and O2 saturation of 90%. HEENT: Pupils equally reactive to light and accommodation. Mouth appears clean without thrush. NECK: Supple. No adenopathy. No JVD. CARDIOVASCULAR: Regular rate and rhythm. No murmurs. LUNGS: Clear to auscultation bilaterally. No crackles. No wheezes. ABDOMEN: Soft and nontender. No organomegaly. EXTREMITIES: No cyanosis, no clubbing, no edema. LABORATORY AND DIAGNOSTIC DATA: White count of 8, hemoglobin 10.6, hematocrit 35.9, MCV 91, and platelet count of 216 with neutrophils of 54%. Sodium 139, potassium 5, chloride 102, bicarb 31, BUN 34, creatinine 3.1, glucose 104, calcium 8.6. Total bilirubin 0.4. AST 27, ALT 23, and alkaline phosphatase 77. CK of 71. Troponin 0.007. Beta natriuretic peptide 683. Total protein 7.2, albumin 3.2. Lipase of 270. UA showing 20 to 30 white cells, LE 3+. Urine cultures are negative so far. Nasal swab was negative for influenza A and B. ASSESSMENT: This is a 73-year-old gentleman with history of hypertension, COPD, congestive heart failure, who comes in with altered mental status and was found to be. 1. Hypotensive. 2. We would like to rule out aspiration pneumonia. 3. Urinary tract infection. 4. History of hypertension. 5. Renal failure. PLAN: 1. Discontinue IV vancomycin. 2. We will start the patient on linezolid IV. 3. We will follow up on blood cultures and urine cultures. 4. We will follow up cultures and adjust antibiotics accordingly. I would like to thank, Dr. Grewal, for this consultation. Jessy Zabala M.D. DR: JASON JOB#: [id number] CC: Justus Grewal M.D.
--- NOTE | 2018-11-20 13:00 | History and Physical Report ---
DATE OF ADMISSION: 11/17/2018 CHIEF COMPLAINT: Respiratory failure. HISTORY OF PRESENT ILLNESS: The patient is a 73-year-old male. He has history of COPD, dementia, paroxysmal atrial fibrillation, hypertension, pulmonary hypertension, who [facility] with complaints of shortness of breath. The patient is currently confused and is unable to provide any history. The patient has history of CHF, COPD, chronic respiratory failure on evaluation in the emergency room and the patient was placed on high-flow oxygen. He was hypotensive and started on dopamine. Broad-spectrum IV antibiotics were instituted. He is now admitted for further evaluation and care. PAST MEDICAL HISTORY: As above. Includes history of COPD, heroin and opiate abuse and dependence. CURRENT MEDICATIONS: Reconciled and reviewed. ALLERGIES: None. FAMILY HISTORY: None. SOCIAL HISTORY: The patient has history of smoker and opiate and heroin dependence. REVIEW OF SYSTEMS: Unobtainable as the patient is confused. PHYSICAL EXAMINATION: VITAL SIGNS: Temperature 98.1, pulse 123, respirations 25, blood pressure 92/54. GENERAL: The patient is chronically ill, thin, awake, confused. NECK: Supple. HEART: Tachycardic. LUNGS: Significantly diminished breath sounds. ABDOMEN: Soft, nontender, nondistended. EXTREMITIES: Without clubbing, cyanosis, or edema. LABORATORY DATA: UA showed 20-30 wbc's. White count 8, hemoglobin 10, hematocrit 35, platelets 216,000. Sodium 139, BUN 34, and creatinine 3.1. Troponin was negative. ASSESSMENT: This is an elderly male with complaints of COPD exacerbation, respiratory failure, shock, UTI, possible pneumonia. PLAN: IV antibiotics. Pressors as needed. Monitor blood gases. High-flow oxygen and BiPAP as needed. Follow chest x-ray. DVT and stress ulcer prophylaxis. The patient's status is currently guarded. Varun Stewart M.D. DR: Rebecca JOB#: [id number] CC:
--- NOTE | 2018-11-20 14:18 | Infectious Diseases Prog Note ---
Assessment/Plan Assessment/Plan A: Sepsis cultures negative Pneumonia Hypercapnic respiratory failure Anemia PVD R eight rib fracture Acute renal failure improved P; Continue Zosyn , discontinue Zyvox Will f/u cultures Subjective ROS Limited/Unobtainable: No Constitutional: Reports: no symptoms Respiratory: Reports: shortness of breath, productive cough Cardiovascular: Reports: no symptoms Gastrointestinal/Abdominal: Reports: no symptoms Genitourinary: Reports: no symptoms Musculoskeletal: Reports: pain, other - in legs Allergies: Coded Allergies: No Known Allergies (Unverified , 10/17/18) Objective Vital Signs Last 24 Hour Vital Signs Date Time Temp Pulse Resp B/P (MAP) Pulse Ox O2 Delivery O2 Flow Rate FiO2 11/20/18 13:05 99 21 98 12.0 50 11/20/18 12:00 97.7 91 24 123/78 (93) 97 11/20/18 11:51 Venturi Mask 12.0 50 11/20/18 11:51 Venturi Mask 12.0 50 11/20/18 11:12 96 22 97 12.0 50 11/20/18 11:00 92 23 122/72 (89) 100 11/20/18 10:00 92 23 124/77 (93) 100 11/20/18 09:01 99 24 99 12.0 50 11/20/18 09:00 97.5 98 23 116/68 (84) 98 11/20/18 08:00 103 11/20/18 08:00 55 11/20/18 08:00 93 23 110/60 (77) 100 11/20/18 08:00 Venturi Mask 11/20/18 07:27 103 22 97 Venturi Mask 12.0 50 11/20/18 07:27 Venturi Mask 12.0 50 11/20/18 07:26 98 Venturi Mask 12.0 50 11/20/18 07:26 Venturi Mask 12.0 50 11/20/18 07:26 97 22 98 12.0 50 11/20/18 07:00 79 21 128/73 (91) 100 11/20/18 06:00 82 21 125/75 (92) 100 11/20/18 05:20 108 24 100 12.0 50 11/20/18 05:00 95 23 119/75 (90) 99 11/20/18 04:00 Venturi Mask 11/20/18 04:00 55 11/20/18 04:00 108 11/20/18 04:00 97.2 108 26 122/74 (90) 98 11/20/18 03:23 99 22 100 Venturi Mask 12.0 50 11/20/18 03:15 101 21 99 12.0 50 11/20/18 03:15 101 21 99 Venturi Mask 12.0 50 11/20/18 03:00 100 21 134/66 (88) 98 11/20/18 02:00 99 25 134/89 (104) 92 11/20/18 01:24 87 21 97 12.0 50 11/20/18 01:00 90 21 152/74 (100) 98 11/20/18 00:44 97.6 100 23 110/73 (85) 100 11/20/18 00:00 55 11/20/18 00:00 100 11/20/18 00:00 Venturi Mask 11/20/18 00:00 97.6 100 23 110/73 (85) 100 11/19/18 23:39 99 22 96 Venturi Mask 12.0 50 11/19/18 23:29 99 24 100 12.0 50 11/19/18 23:29 99 24 100 Venturi Mask 12.0 50 11/19/18 23:00 101 22 108/62 (77) 93 11/19/18 22:00 101 22 108/62 (77) 93 11/19/18 21:25 114 22 94 12.0 50 11/19/18 21:00 103 28 114/69 (84) 99 11/19/18 20:00 55 11/19/18 20:00 97.2 103 22 131/86 (101) 100 11/19/18 20:00 103 11/19/18 20:00 Venturi Mask 11/19/18 19:53 101 20 100 Venturi Mask 12.0 50 11/19/18 19:44 107 20 99 Venturi Mask 12.0 50 11/19/18 19:44 107 20 99 12.0 50 11/19/18 19:44 99 Venturi Mask 12.0 50 11/19/18 19:44 Venturi Mask 12.0 50 11/19/18 19:00 107 29 136/88 (104) 100 11/19/18 18:00 106 28 107/67 (80) 100 11/19/18 17:12 111 24 95 14.0 55 11/19/18 17:00 108 24 126/83 (97) 97 11/19/18 16:00 55 11/19/18 16:00 97.8 105 24 110/69 (83) 95 11/19/18 16:00 105 11/19/18 16:00 Venturi Mask 11/19/18 15:08 124 22 97 Venturi Mask 14.0 55 11/19/18 15:08 Venturi Mask 14.0 55 11/19/18 15:07 117 22 97 14.0 55 11/19/18 15:00 120 22 168/84 (112) 92 Height (Feet): 5 Height (Inches): 4.00 Weight (Pounds): 108 General Appearance: cachetic HEENT: mucous membranes moist Respiratory/Chest: lungs clear, other - oxygen by mask Cardiovascular: normal rate, other - R femoral line Abdomen: soft, non tender Extremities: no edema Neurologic/Psychiatric: alert, responsive Laboratory Tests Test 11/19/18 22:33 11/20/18 05:00 Arterial Blood pH 7.225 (7.350-7.450) Arterial Blood Partial Pressure CO2 68.1 mmHg (35.0-45.0) *H Arterial Blood Partial Pressure O2 87.6 mmHg (75.0-100.0) Arterial Blood HCO3 27.6 mmol/L (22.0-26.0) H Arterial Blood Oxygen Saturation 94.6 % (95-100) L Arterial Blood Base Excess -0.9 (-2-2) Cameron Test Positive White Blood Count 4.0 K/UL (4.8-10.8) L Red Blood Count 3.18 M/UL (4.70-6.10) L Hemoglobin 8.6 G/DL (14.2-18.0) L Hematocrit 28.5 % (42.0-52.0) L Mean Corpuscular Volume 90 FL (80-99) Mean Corpuscular Hemoglobin 26.9 PG (27.0-31.0) L Mean Corpuscular Hemoglobin Concent 30.0 G/DL (32.0-36.0) L Red Cell Distribution Width 17.5 % (11.6-14.8) H Platelet Count 193 K/UL (150-450) Mean Platelet Volume 6.1 FL (6.5-10.1) L Neutrophils (%) (Auto) 82.8 % (45.0-75.0) H Lymphocytes (%) (Auto) 11.1 % (20.0-45.0) L Monocytes (%) (Auto) 5.6 % (1.0-10.0) Eosinophils (%) (Auto) 0.0 % (0.0-3.0) Basophils (%) (Auto) 0.5 % (0.0-2.0) Sodium Level 141 MMOL/L (136-145) Potassium Level 4.5 MMOL/L (3.5-5.1) Chloride Level 105 MMOL/L (98-107) Carbon Dioxide Level 30 MMOL/L (21-32) Anion Gap 6 mmol/L (5-15) Blood Urea Nitrogen 12 mg/dL (7-18) Creatinine 0.8 MG/DL (0.55-1.30) Estimat Glomerular Filtration Rate mL/min (>60) Glucose Level 116 MG/DL (74-106) H Calcium Level 8.7 MG/DL (8.5-10.1) Total Bilirubin 0.3 MG/DL (0.2-1.0) Aspartate Amino Transf (AST/SGOT) 15 U/L (15-37) Alanine Aminotransferase (ALT/SGPT) 17 U/L (12-78) Alkaline Phosphatase 62 U/L (46-116) Total Protein 6.7 G/DL (6.4-8.2) Albumin 2.9 G/DL (3.4-5.0) L Globulin 3.8 g/dL Albumin/Globulin Ratio 0.8 (1.0-2.7) L Current Medications Medications (Trade) Dose Ordered Sig/Aimee Route PRN Reason Start Time Stop Time Status Last Admin Dose Admin Albuterol/ Ipratropium (Albuterol/ Ipratropium) 3 ml Q4HRT HHN 11/20/18 15:00 11/22/18 22:59 Chlorhexidine Gluconate (Mayra-Hex 2%) 1 applic DAILY@2000 TOPIC 11/20/18 20:00 12/19/18 19:59 Famotidine (Pepcid) 20 mg BID ORAL 11/20/18 18:00 12/18/18 08:59 Folic Acid (Folate) 1 mg DAILY ORAL 11/21/18 09:00 12/18/18 08:59 Gabapentin (Neurontin) 300 mg THREE TIMES A DAY ORAL 11/20/18 13:00 12/18/18 08:59 11/20/18 13:24 Heparin Sodium (Porcine) (Heparin 5000 units/ml) 5,000 units EVERY 12 HOURS SUBQ 11/20/18 21:00 12/17/18 20:59 Heparin Sodium/ Sodium Chloride (Heparin 1000 units/500ml Premix) 1,000 unit ONCE PRN IV PICC PLACEMENT 11/20/18 11:15 11/22/18 23:59 Lidocaine HCl (Xylocaine 1% 30ml) 30 ml ONCE PRN INJ PICC PLACEMENT 11/20/18 11:15 11/22/18 23:59 Linezolid 300 ml @ 300 mls/hr Q12HR IVPB 11/20/18 21:00 11/25/18 10:59 Methylprednisolone Sodium Succinate (Solu-MEDROL) 60 mg EVERY 8 HOURS IVP 11/20/18 14:00 12/18/18 23:44 11/20/18 13:24 Piperacillin Sod/ Tazobactam Sod 3.375 gm/Dextrose 110 ml @ 27.5 mls/hr EVERY 12 HOURS IVPB 11/20/18 21:00 11/22/18 19:59 Sodium Chloride 1,000 ml @ 100 mls/hr Q10H IV 11/20/18 11:15 12/17/18 19:29 11/20/18 11:52 Thiamine HCl (Vitamin B1) 100 mg DAILY ORAL 11/21/18 09:00 12/18/18 08:59 Jez Espinoza MD Nov 20, 2018 14:18
[2018-11-20] MEDS: Dyna-Hex 2% Top Sol 2oz TOPIC SCH (20:03)
[2018-11-21] VITALS: BP 144/83
[2018-11-21] MEDS: Albuterol/Ipratropium 3ml neb HHN SCH ×6 (02:20→22:27)
[2018-11-21 04:00] VITALS: BP 143/93
[2018-11-21 05:51] LABS: HEMATOCRIT 30.5 % (42.0-52.0); HEMOGLOBIN 8.9 G/DL (14.2-18.0); MEAN CORPUSCULAR VOLUME 91 FL (80-99); PLATELET COUNT 225 K/UL (150-450); RED BLOOD COUNT 3.34 M/UL (4.70-6.10); RED CELL DISTRIBUTION WIDTH 18.6 % (11.6-14.8); WHITE BLOOD COUNT 6.1 K/UL (4.8-10.8)
[2018-11-21 06:03] LABS: ALANINE AMINOTRANSFERASE 16 U/L (12-78); ALBUMIN 2.7 G/DL (3.4-5.0); ALBUMIN/GLOBULIN RATIO 0.7 (1.0-2.7); ALKALINE PHOSPHATASE 56 U/L (46-116); ANION GAP 4 mmol/L (5-15); ASPARTATE AMINO TRANSFERASE 16 U/L (15-37); BILIRUBIN,TOTAL 0.2 MG/DL (0.2-1.0); BLOOD UREA NITROGEN 16 mg/dL (7-18); CALCIUM 8.7 MG/DL (8.5-10.1); CARBON DIOXIDE 32 MMOL/L (21-32); CHLORIDE 109 MMOL/L (98-107); CREATININE 0.9 MG/DL (0.55-1.30); POTASSIUM 4.7 MMOL/L (3.5-5.1); SODIUM 145 MMOL/L (136-145)
[2018-11-21 08:00] VITALS: BP 135/77
[2018-11-21] MEDS: Solu-MEDROL 125mg Inj IVP SCH ×2 (08:09→20:16)
[2018-11-21] MEDS: Thiamine 100mg tab ORAL SCH (08:09)
[2018-11-21] MEDS: Heparin 5000 units/ml inj SUBQ SCH ×2 (08:11→20:17)
[2018-11-21] MEDS: Piperacillin/Tazobactam 3.375 GM in D5W 110 ML IVPB SCH ×2 (08:17→20:16)
--- NOTE | 2018-11-21 09:14 | General Progress Note ---
Assessment/Plan Problem List: (1) PNA (pneumonia) ICD Codes: J18.9 - Pneumonia, unspecified organism SNOMED: 220467981 (2) Opiate dependence, continuous ICD Codes: F11.20 - Opioid dependence, uncomplicated SNOMED: 749129281 (3) CHF (congestive heart failure) ICD Codes: I50.9 - CHF (congestive heart failure) SNOMED: 69014387 (4) Tachycardia ICD Codes: R00.0 - Tachycardia, unspecified SNOMED: 7366074 (5) HTN (hypertension) ICD Codes: I10 - Essential (primary) hypertension SNOMED: 99484162 (6) COPD exacerbation ICD Codes: J44.1 - Chronic obstructive pulmonary disease with (acute) exacerbation SNOMED: 984370019, 624874141 (7) Respiratory distress ICD Codes: R06.03 - Acute respiratory distress SNOMED: 126750307 (8) Severe sepsis ICD Codes: A41.9 - Sepsis, unspecified organism; R65.20 - Severe sepsis without septic shock SNOMED: 25340402 Status: stable, progressing Assessment/Plan cont current rx resp care o2 abx monitor cxr Subjective ROS Limited/Unobtainable: No Constitutional: Reports: malaise HEENT: Reports: no symptoms Cardiovascular: Reports: no symptoms Respiratory: Reports: cough, shortness of breath, sputum Gastrointestinal/Abdominal: Reports: no symptoms Genitourinary: Reports: no symptoms Neurologic/Psychiatric: Reports: anxiety Endocrine: Reports: no symptoms Hematologic/Lymphatic: Reports: no symptoms Allergies: Coded Allergies: No Known Allergies (Unverified , 10/17/18) All Systems: reviewed and negative except above Subjective no events. agitated. refusing bipap. no fevers. eats well. on venti mask. no cp Objective Last 24 Hour Vital Signs Date Time Temp Pulse Resp B/P (MAP) Pulse Ox O2 Delivery O2 Flow Rate FiO2 11/21/18 07:18 68 18 100 Venturi Mask 10.0 45 11/21/18 07:08 71 18 100 Venturi Mask 12.0 50 11/21/18 07:08 Venturi Mask 12.0 50 11/21/18 07:08 100 Venturi Mask 12.0 50 11/21/18 04:00 92 11/21/18 04:00 Venturi Mask 10.0 11/21/18 04:00 97.7 90 20 143/93 (110) 97 11/21/18 04:00 10.0 55 11/21/18 02:20 Venturi Mask 12.0 50 11/21/18 02:20 Venturi Mask 12.0 50 11/21/18 00:00 98 11/21/18 00:00 10.0 55 11/21/18 00:00 Venturi Mask 10.0 11/21/18 00:00 98.0 101 24 144/83 (103) 97 11/20/18 23:06 Venturi Mask 12.0 50 11/20/18 23:05 Venturi Mask 12.0 50 11/20/18 20:45 96 20 99 Venturi Mask 12.0 50 11/20/18 20:33 96 20 97 Venturi Mask 12.0 50 11/20/18 20:30 Venturi Mask 12.0 50 11/20/18 20:29 96 Venturi Mask 12.0 50 11/20/18 20:00 Venturi Mask 10.0 11/20/18 20:00 104 11/20/18 20:00 97.9 104 24 143/89 (107) 97 11/20/18 20:00 10.0 55 11/20/18 18:00 Venturi Mask 10.0 11/20/18 17:19 94 22 98 12.0 50 11/20/18 16:00 Venturi Mask 10.0 11/20/18 16:00 10.0 55 11/20/18 15:44 86 11/20/18 15:17 102 22 97 12.0 50 11/20/18 14:56 83 11/20/18 14:31 Venturi Mask 12.0 50 11/20/18 14:31 Venturi Mask 12.0 50 11/20/18 13:05 99 21 98 12.0 50 11/20/18 12:00 Venturi Mask 10.0 11/20/18 12:00 10.0 55 11/20/18 12:00 97.7 91 24 123/78 (93) 97 11/20/18 11:51 Venturi Mask 12.0 50 11/20/18 11:51 Venturi Mask 12.0 50 11/20/18 11:12 96 22 97 12.0 50 11/20/18 11:00 92 23 122/72 (89) 100 11/20/18 10:00 92 23 124/77 (93) 100 Intake and Output 11/20/18 11/21/18 18:59 06:59 Intake Total 2280.331 ml 1310.0 ml Output Total 300 ml 400 ml Balance 1980.331 ml 910.0 ml Intake Oral 600 ml IV Total 1680.331 ml 1310.0 ml Output Urine Total 300 ml 400 ml # Bowel Movements 2 4 Laboratory Tests 11/21/18 04:00: White Blood Count 6.1#, Red Blood Count 3.34L, Hemoglobin 8.9L, Hematocrit 30.5L , Mean Corpuscular Volume 91, Mean Corpuscular Hemoglobin 26.7L, Mean Corpuscular Hemoglobin Concent 29.3L, Red Cell Distribution Width 18.6H, Platelet Count 225, Mean Platelet Volume 6.2L, Neutrophils (%) (Auto) , Lymphocytes (%) (Auto) , Monocytes (%) (Auto) , Eosinophils (%) (Auto) , Basophils (%) (Auto) , Sodium Level 145, Potassium Level 4.7, Chloride Level 109H, Carbon Dioxide Level 32, Anion Gap 4L, Blood Urea Nitrogen 16, Creatinine 0.9, Estimat Glomerular Filtration Rate , Glucose Level 111H, Calcium Level 8.7 , Magnesium Level 1.7L, Total Bilirubin 0.2, Aspartate Amino Transf (AST/SGOT) 16, Alanine Aminotransferase (ALT/SGPT) 16, Alkaline Phosphatase 56, Pro-B-Type Natriuretic Peptide 95076J, Total Protein 6.5, Albumin 2.7L, Globulin 3.8, Albumin/Globulin Ratio 0.7L Height (Feet): 5 Height (Inches): 4.00 Weight (Pounds): 108 General Appearance: WD/WN, alert Neck: supple Cardiovascular: normal rate Respiratory/Chest: chest wall non-tender, lungs clear, normal breath sounds Abdomen: normal bowel sounds, non tender, soft, no organomegaly Edema: no edema noted Arm (L), no edema noted Arm (R), no edema noted Leg (L), no edema noted Leg (R), no edema noted Pedal (L), no edema noted Pedal (R), no edema noted Generalized Neurologic: straight line press setter II-XII grossly normal, alert Varun Stewart MD Nov 21, 2018 09:14
--- NOTE | 2018-11-21 10:29 | Pulmonology Progress Note ---
Assessment/Plan Assessment/Plan ASSESSMENT: COPD exacerbation respiratory failure shock UTI possible pneumonia. PLAN: IV antibiotics per ID. Pressors as needed. Monitor blood gases. High-flow oxygen and BiPAP as needed; currently on face mask o2 Follow chest x-ray. DVT and stress ulcer prophylaxis. Subjective Interval Events: Now in [place]; saturating well on face mask o2 Constitutional: Reports: no symptoms HEENT: Repors: no symptoms Respiratory: Reports: dry cough, shortness of breath Cardiovascular: Reports: no symptoms Gastrointestinal/Abdominal: Reports: no symptoms Allergies: Coded Allergies: No Known Allergies (Unverified , 10/17/18) Objective Last 24 Hour Vital Signs Date Time Temp Pulse Resp B/P (MAP) Pulse Ox O2 Delivery O2 Flow Rate FiO2 11/21/18 08:00 98.1 107 22 135/77 (96) 91 11/21/18 08:00 10.0 55 11/21/18 07:18 68 18 100 Venturi Mask 10.0 45 11/21/18 07:08 71 18 100 Venturi Mask 12.0 50 11/21/18 07:08 Venturi Mask 12.0 50 11/21/18 07:08 100 Venturi Mask 12.0 50 11/21/18 04:00 92 11/21/18 04:00 Venturi Mask 10.0 11/21/18 04:00 97.7 90 20 143/93 (110) 97 11/21/18 04:00 10.0 55 11/21/18 02:20 Venturi Mask 12.0 50 11/21/18 02:20 Venturi Mask 12.0 50 11/21/18 00:00 98 11/21/18 00:00 10.0 55 11/21/18 00:00 Venturi Mask 10.0 11/21/18 00:00 98.0 101 24 144/83 (103) 97 11/20/18 23:06 Venturi Mask 12.0 50 11/20/18 23:05 Venturi Mask 12.0 50 11/20/18 20:45 96 20 99 Venturi Mask 12.0 50 11/20/18 20:33 96 20 97 Venturi Mask 12.0 50 11/20/18 20:30 Venturi Mask 12.0 50 11/20/18 20:29 96 Venturi Mask 12.0 50 11/20/18 20:00 Venturi Mask 10.0 11/20/18 20:00 104 11/20/18 20:00 97.9 104 24 143/89 (107) 97 11/20/18 20:00 10.0 55 11/20/18 18:00 Venturi Mask 10.0 11/20/18 17:19 94 22 98 12.0 50 11/20/18 16:00 Venturi Mask 10.0 11/20/18 16:00 10.0 55 11/20/18 15:44 86 11/20/18 15:17 102 22 97 12.0 50 11/20/18 14:56 83 11/20/18 14:31 Venturi Mask 12.0 50 11/20/18 14:31 Venturi Mask 12.0 50 11/20/18 13:05 99 21 98 12.0 50 11/20/18 12:00 Venturi Mask 10.0 11/20/18 12:00 10.0 55 11/20/18 12:00 97.7 91 24 123/78 (93) 97 11/20/18 11:51 Venturi Mask 12.0 50 11/20/18 11:51 Venturi Mask 12.0 50 11/20/18 11:12 96 22 97 12.0 50 11/20/18 11:00 92 23 122/72 (89) 100 Intake and Output 11/20/18 11/21/18 18:59 06:59 Intake Total 2280.331 ml 1310.0 ml Output Total 300 ml 400 ml Balance 1980.331 ml 910.0 ml Intake Oral 600 ml IV Total 1680.331 ml 1310.0 ml Output Urine Total 300 ml 400 ml # Bowel Movements 2 4 General Appearance: no acute distress HEENT: normocephalic Respiratory/Chest: chest wall non-tender, lungs clear Cardiovascular: normal peripheral pulses, normal rate Abdomen: normal bowel sounds, soft, non tender Microbiology Date/Time Source Procedure Growth Status 11/20/18 05:00 Sputum Expectorated Gram Stain - Final Resulted 11/20/18 05:00 Sputum Expectorated Sputum Culture - Preliminary NO GROWTH AFTER 24 HOURS Resulted Laboratory Tests 11/21/18 04:00: White Blood Count 6.1#, Red Blood Count 3.34L, Hemoglobin 8.9L, Hematocrit 30.5L , Mean Corpuscular Volume 91, Mean Corpuscular Hemoglobin 26.7L, Mean Corpuscular Hemoglobin Concent 29.3L, Red Cell Distribution Width 18.6H, Platelet Count 225, Mean Platelet Volume 6.2L, Neutrophils (%) (Auto) , Lymphocytes (%) (Auto) , Monocytes (%) (Auto) , Eosinophils (%) (Auto) , Basophils (%) (Auto) , Sodium Level 145, Potassium Level 4.7, Chloride Level 109H, Carbon Dioxide Level 32, Anion Gap 4L, Blood Urea Nitrogen 16, Creatinine 0.9, Estimat Glomerular Filtration Rate , Glucose Level 111H, Calcium Level 8.7 , Magnesium Level 1.7L, Total Bilirubin 0.2, Aspartate Amino Transf (AST/SGOT) 16, Alanine Aminotransferase (ALT/SGPT) 16, Alkaline Phosphatase 56, Pro-B-Type Natriuretic Peptide 30920V, Total Protein 6.5, Albumin 2.7L, Globulin 3.8, Albumin/Globulin Ratio 0.7L 11/21/18 08:50: Arterial Blood pH 7.315L, Arterial Blood Partial Pressure CO2 56.5*H, Arterial Blood Partial Pressure O2 68.9L, Arterial Blood HCO3 28.1H, Arterial Blood Oxygen Saturation 92.3L, Arterial Blood Base Excess 1.2, Cameron Test Positive Current Medications Medications (Trade) Dose Ordered Sig/Aimee Route PRN Reason Start Time Stop Time Status Last Admin Dose Admin Albuterol/ Ipratropium (Albuterol/ Ipratropium) 3 ml Q4HRT HHN 11/20/18 15:00 11/22/18 22:59 11/21/18 07:08 Chlorhexidine Gluconate (Mayra-Hex 2%) 1 applic DAILY@1999 TOPIC 11/20/18 20:00 12/19/18 19:59 11/20/18 20:03 Famotidine (Pepcid) 20 mg BID ORAL 11/20/18 18:00 12/18/18 08:59 11/21/18 08:10 Folic Acid (Folate) 1 mg DAILY ORAL 11/21/18 09:00 12/18/18 08:59 11/21/18 08:09 Gabapentin (Neurontin) 300 mg THREE TIMES A DAY ORAL 11/20/18 13:00 12/18/18 08:59 11/21/18 08:09 Heparin Sodium (Porcine) (Heparin 5000 units/ml) 5,000 units EVERY 12 HOURS SUBQ 11/20/18 21:00 12/17/18 20:59 11/21/18 08:11 Heparin Sodium/ Sodium Chloride (Heparin 1000 units/500ml Premix) 1,000 unit ONCE PRN IV PICC PLACEMENT 11/20/18 11:15 11/22/18 23:59 Lidocaine HCl (Xylocaine 1% 30ml) 30 ml ONCE PRN INJ PICC PLACEMENT 11/20/18 11:15 11/22/18 23:59 Methylprednisolone Sodium Succinate (Solu-MEDROL) 60 mg EVERY 12 HOURS IVP 11/21/18 09:00 12/21/18 08:59 11/21/18 08:09 Piperacillin Sod/ Tazobactam Sod 3.375 gm/Dextrose 110 ml @ 27.5 mls/hr EVERY 12 HOURS IVPB 11/20/18 21:00 11/22/18 19:59 11/21/18 08:17 Sodium Chloride 1,000 ml @ 100 mls/hr Q10H IV 11/20/18 11:15 12/17/18 19:29 11/21/18 08:11 Thiamine HCl (Vitamin B1) 100 mg DAILY ORAL 11/21/18 09:00 12/18/18 08:59 11/21/18 08:09 Abhijit Morris MD Nov 21, 2018 10:29
--- NOTE | 2018-11-21 10:37 | Infectious Diseases Prog Note ---
Assessment/Plan Assessment/Plan antibiotics : zosyn A 1. pneumonia 2. UTI 3. CHF 4. hypertension 5. COPD P 1. continue zosyn 2. will follow up cultures Subjective Constitutional: Denies: fever, chills Respiratory: Reports: shortness of breath - decreased, dry cough - decreased Gastrointestinal/Abdominal: Reports: nausea, diarrhea - mild; Denies: vomiting Musculoskeletal: Reports: pain Allergies: Coded Allergies: No Known Allergies (Unverified , 10/17/18) Objective Vital Signs Last 24 Hour Vital Signs Date Time Temp Pulse Resp B/P (MAP) Pulse Ox O2 Delivery O2 Flow Rate FiO2 11/21/18 08:00 98.1 107 22 135/77 (96) 91 11/21/18 08:00 10.0 55 11/21/18 07:18 68 18 100 Venturi Mask 10.0 45 11/21/18 07:08 71 18 100 Venturi Mask 12.0 50 11/21/18 07:08 Venturi Mask 12.0 50 11/21/18 07:08 100 Venturi Mask 12.0 50 11/21/18 04:00 92 11/21/18 04:00 Venturi Mask 10.0 11/21/18 04:00 97.7 90 20 143/93 (110) 97 11/21/18 04:00 10.0 55 11/21/18 02:20 Venturi Mask 12.0 50 11/21/18 02:20 Venturi Mask 12.0 50 11/21/18 00:00 98 11/21/18 00:00 10.0 55 11/21/18 00:00 Venturi Mask 10.0 11/21/18 00:00 98.0 101 24 144/83 (103) 97 11/20/18 23:06 Venturi Mask 12.0 50 11/20/18 23:05 Venturi Mask 12.0 50 11/20/18 20:45 96 20 99 Venturi Mask 12.0 50 11/20/18 20:33 96 20 97 Venturi Mask 12.0 50 11/20/18 20:30 Venturi Mask 12.0 50 11/20/18 20:29 96 Venturi Mask 12.0 50 11/20/18 20:00 Venturi Mask 10.0 11/20/18 20:00 104 11/20/18 20:00 97.9 104 24 143/89 (107) 97 11/20/18 20:00 10.0 55 11/20/18 18:00 Venturi Mask 10.0 11/20/18 17:19 94 22 98 12.0 50 11/20/18 16:00 Venturi Mask 10.0 11/20/18 16:00 10.0 55 11/20/18 15:44 86 11/20/18 15:17 102 22 97 12.0 50 11/20/18 14:56 83 11/20/18 14:31 Venturi Mask 12.0 50 11/20/18 14:31 Venturi Mask 12.0 50 11/20/18 13:05 99 21 98 12.0 50 11/20/18 12:00 Venturi Mask 10.0 11/20/18 12:00 10.0 55 11/20/18 12:00 97.7 91 24 123/78 (93) 97 11/20/18 11:51 Venturi Mask 12.0 50 11/20/18 11:51 Venturi Mask 12.0 50 11/20/18 11:12 96 22 97 12.0 50 11/20/18 11:00 92 23 122/72 (89) 100 Height (Feet): 5 Height (Inches): 4.00 Weight (Pounds): 108 Respiratory/Chest: lungs clear Cardiovascular: normal rate, regular rhythm, no gallop/murmur Abdomen: soft, non tender Extremities: no edema Microbiology Date/Time Source Procedure Growth Status 11/20/18 05:00 Sputum Expectorated Gram Stain - Final Resulted 11/20/18 05:00 Sputum Expectorated Sputum Culture - Preliminary NO GROWTH AFTER 24 HOURS Resulted Laboratory Tests Test 11/21/18 04:00 11/21/18 08:50 White Blood Count 6.1 K/UL (4.8-10.8) # Red Blood Count 3.34 M/UL (4.70-6.10) L Hemoglobin 8.9 G/DL (14.2-18.0) L Hematocrit 30.5 % (42.0-52.0) L Mean Corpuscular Volume 91 FL (80-99) Mean Corpuscular Hemoglobin 26.7 PG (27.0-31.0) L Mean Corpuscular Hemoglobin Concent 29.3 G/DL (32.0-36.0) L Red Cell Distribution Width 18.6 % (11.6-14.8) H Platelet Count 225 K/UL (150-450) Mean Platelet Volume 6.2 FL (6.5-10.1) L Neutrophils (%) (Auto) % (45.0-75.0) Lymphocytes (%) (Auto) % (20.0-45.0) Monocytes (%) (Auto) % (1.0-10.0) Eosinophils (%) (Auto) % (0.0-3.0) Basophils (%) (Auto) % (0.0-2.0) Sodium Level 145 MMOL/L (136-145) Potassium Level 4.7 MMOL/L (3.5-5.1) Chloride Level 109 MMOL/L (98-107) H Carbon Dioxide Level 32 MMOL/L (21-32) Anion Gap 4 mmol/L (5-15) L Blood Urea Nitrogen 16 mg/dL (7-18) Creatinine 0.9 MG/DL (0.55-1.30) Estimat Glomerular Filtration Rate mL/min (>60) Glucose Level 111 MG/DL (74-106) H Calcium Level 8.7 MG/DL (8.5-10.1) Magnesium Level 1.7 MG/DL (1.8-2.4) L Total Bilirubin 0.2 MG/DL (0.2-1.0) Aspartate Amino Transf (AST/SGOT) 16 U/L (15-37) Alanine Aminotransferase (ALT/SGPT) 16 U/L (12-78) Alkaline Phosphatase 56 U/L (46-116) Pro-B-Type Natriuretic Peptide 53651 pg/mL (0-125) H Total Protein 6.5 G/DL (6.4-8.2) Albumin 2.7 G/DL (3.4-5.0) L Globulin 3.8 g/dL Albumin/Globulin Ratio 0.7 (1.0-2.7) L Arterial Blood pH 7.315 (7.350-7.450) Arterial Blood Partial Pressure CO2 56.5 mmHg (35.0-45.0) *H Arterial Blood Partial Pressure O2 68.9 mmHg (75.0-100.0) L Arterial Blood HCO3 28.1 mmol/L (22.0-26.0) H Arterial Blood Oxygen Saturation 92.3 % (95-100) L Arterial Blood Base Excess 1.2 (-2-2) Cameron Test Positive Current Medications Medications (Trade) Dose Ordered Sig/Aimee Route PRN Reason Start Time Stop Time Status Last Admin Dose Admin Albuterol/ Ipratropium (Albuterol/ Ipratropium) 3 ml Q4HRT HHN 11/20/18 15:00 11/22/18 22:59 11/21/18 07:08 Chlorhexidine Gluconate (Marya-Hex 2%) 1 applic DAILY@2000 TOPIC 11/20/18 20:00 12/19/18 19:59 11/20/18 20:03 Famotidine (Pepcid) 20 mg BID ORAL 11/20/18 18:00 12/18/18 08:59 11/21/18 08:10 Folic Acid (Folate) 1 mg DAILY ORAL 11/21/18 09:00 12/18/18 08:59 11/21/18 08:09 Gabapentin (Neurontin) 300 mg THREE TIMES A DAY ORAL 11/20/18 13:00 12/18/18 08:59 11/21/18 08:09 Heparin Sodium (Porcine) (Heparin 5000 units/ml) 5,000 units EVERY 12 HOURS SUBQ 11/20/18 21:00 12/17/18 20:59 11/21/18 08:11 Heparin Sodium/ Sodium Chloride (Heparin 1000 units/500ml Premix) 1,000 unit ONCE PRN IV PICC PLACEMENT 11/20/18 11:15 11/22/18 23:59 Lidocaine HCl (Xylocaine 1% 30ml) 30 ml ONCE PRN INJ PICC PLACEMENT 11/20/18 11:15 11/22/18 23:59 Methylprednisolone Sodium Succinate (Solu-MEDROL) 60 mg EVERY 12 HOURS IVP 11/21/18 09:00 12/21/18 08:59 11/21/18 08:09 Piperacillin Sod/ Tazobactam Sod 3.375 gm/Dextrose 110 ml @ 27.5 mls/hr EVERY 12 HOURS IVPB 11/20/18 21:00 11/22/18 19:59 11/21/18 08:17 Sodium Chloride 1,000 ml @ 100 mls/hr Q10H IV 11/20/18 11:15 12/17/18 19:29 11/21/18 08:11 Thiamine HCl (Vitamin B1) 100 mg DAILY ORAL 11/21/18 09:00 12/18/18 08:59 11/21/18 08:09 Jessy Zabala MD Nov 21, 2018 10:37
[2018-11-21 12:00] VITALS: BP 121/72
--- NOTE | 2018-11-21 12:00 | Consultation ---
DATE OF CONSULTATION: 11/20/2018 PULMONARY CONSULTATION: CONSULTING PHYSICIAN: Abhijit Morris M.D. HISTORY OF PRESENT ILLNESS: This is a 73-year-old male, who is seen in ICU. At this time, he is confused and cannot provide any clear history. He was admitted to the hospital several days ago with complaints of altered mental status. He is apparently a snf resident. He was also found to be hypotensive and hypoglycemic. The patient was placed on a BiPAP due to respiratory distress. At this time, he is off the BiPAP. As discussed above, he cannot provide me any clinical history. PAST MEDICAL HISTORY: Notable for CHF, anemia, COPD, depression, psych disorder. REVIEW OF SYSTEMS: Unreliable. CURRENT MEDICATIONS: Includes linezolid, Zosyn, IV fluids, chlorhexidine, DuoNeb, Pepcid, folic acid, Neurontin, subcu heparin, IV Solu-Medrol, and thiamine. PHYSICAL EXAMINATION: GENERAL: Reveals a 73-year-old male. HEENT: Unremarkable. CHEST: Decreased breath sounds bilaterally. HEART: Normal heart sounds. ABDOMEN: Soft. EXTREMITIES: There is no edema. VITAL SIGNS: Blood pressure is 120/70, heart rate is 78, respirations are 20, he is afebrile, O2 saturation is 97% on 50% FiO2 using a Ventimask. LABORATORY DATA: Lab testing shows white count 4000, hemoglobin 8.6, platelet count is 193,000. Chemistries are unremarkable. Albumin 2.9. ABG - pH 7.22, pCO2 of 68, and pO2 87. X-ray chest is reviewed and shows left lung pneumonia. There is also a right eighth rib fracture. IMPRESSION: 1. Left lung pneumonia. 2. COPD. 3. Psych disorder. 4. CHF. DISCUSSION: We will check ABG. Currently, the patient is off BiPAP. Agree with broad-spectrum antibiotics and steroids. We will follow as care coordination manager. Abhijit Morris M.D. DR: DESIRE JOB#: [id number] CC:
[2018-11-21 16:00] VITALS: BP 131/64
[2018-11-21] MEDS ORDERED: NS 275ml ONE (16:46)
[2018-11-21 20:00] VITALS: BP 130/81
[2018-11-21] MEDS: Dyna-Hex 2% Top Sol 2oz TOPIC SCH (20:15)
[2018-11-22] VITALS: BP 135/90
[2018-11-22] MEDS: Albuterol/Ipratropium 3ml neb HHN SCH ×5 (02:27→19:49)
[2018-11-22 04:00] VITALS: BP 125/65
--- NOTE | 2018-11-22 07:10 | Pulmonology Progress Note ---
Assessment/Plan Assessment/Plan ASSESSMENT: COPD exacerbation respiratory failure shock UTI possible pneumonia. Has small left effusion; too small to tap. PLAN: IV antibiotics per ID. Will spot dose single dose LAsix; CXR suggestive of fluid overload. Continue face mask o2 DVT and stress ulcer prophylaxis. Subjective Interval Events: Remains on face mask O2 Constitutional: Reports: no symptoms HEENT: Repors: no symptoms Respiratory: Reports: no symptoms Cardiovascular: Reports: no symptoms Gastrointestinal/Abdominal: Reports: no symptoms Neurologic: Reports: no symptoms Allergies: Coded Allergies: No Known Allergies (Unverified , 10/17/18) Objective Last 24 Hour Vital Signs Date Time Temp Pulse Resp B/P (MAP) Pulse Ox O2 Delivery O2 Flow Rate FiO2 11/22/18 04:00 97.4 70 21 125/65 (85) 95 11/22/18 04:00 70 11/22/18 04:00 10.0 45 11/22/18 04:00 Venturi Mask 10.0 11/22/18 02:28 Venturi Mask 12.0 50 11/22/18 02:27 Venturi Mask 12.0 50 11/22/18 00:00 97.5 105 20 135/90 (105) 94 11/22/18 00:00 92 11/22/18 00:00 Venturi Mask 10.0 11/21/18 22:37 95 21 98 Venturi Mask 12.0 50 11/21/18 22:27 88 23 95 Venturi Mask 12.0 50 11/21/18 20:00 97.5 85 22 130/81 (97) 96 11/21/18 20:00 Venturi Mask 10.0 11/21/18 20:00 10.0 45 11/21/18 20:00 107 11/21/18 19:24 92 20 97 Venturi Mask 12.0 50 11/21/18 19:18 Venturi Mask 10.0 45 11/21/18 19:18 92 Venturi Mask 10.0 45 11/21/18 19:16 98 22 92 Venturi Mask 10.0 45 11/21/18 16:00 97.9 106 22 131/64 (86) 96 11/21/18 16:00 Venturi Mask 10.0 11/21/18 16:00 117 11/21/18 15:06 68 18 96 Venturi Mask 10.0 45 11/21/18 14:56 67 20 95 Venturi Mask 10.0 45 11/21/18 12:00 98.1 101 20 121/72 (88) 97 11/21/18 12:00 99 11/21/18 12:00 Venturi Mask 10.0 11/21/18 12:00 10.0 45 11/21/18 10:45 69 18 94 Venturi Mask 10.0 45 11/21/18 10:35 61 19 94 Venturi Mask 10.0 45 11/21/18 08:00 98.1 107 22 135/77 (96) 91 11/21/18 08:00 10.0 55 11/21/18 08:00 108 11/21/18 08:00 Venturi Mask 10.0 11/21/18 07:18 68 18 100 Venturi Mask 10.0 45 Intake and Output 11/21/18 11/22/18 18:59 06:59 Intake Total 800 ml 930.0 ml Output Total 550 ml 1800 ml Balance 250 ml -870.0 ml Intake Oral 120 ml IV Total 800 ml 810.0 ml Output Urine Total 550 ml 1800 ml # Bowel Movements 4 4 General Appearance: no acute distress HEENT: normocephalic Respiratory/Chest: chest wall non-tender, decreased breath sounds Cardiovascular: normal peripheral pulses, normal rate Abdomen: normal bowel sounds, soft, non tender Microbiology Date/Time Source Procedure Growth Status 11/20/18 05:00 Sputum Expectorated Gram Stain - Final Resulted 11/20/18 05:00 Sputum Expectorated Sputum Culture - Preliminary NO GROWTH AFTER 24 HOURS Resulted Laboratory Tests 11/21/18 08:50: Arterial Blood pH 7.315L, Arterial Blood Partial Pressure CO2 56.5*H, Arterial Blood Partial Pressure O2 68.9L, Arterial Blood HCO3 28.1H, Arterial Blood Oxygen Saturation 92.3L, Arterial Blood Base Excess 1.2, Cameron Test Positive Current Medications Medications (Trade) Dose Ordered Sig/Aimee Route PRN Reason Start Time Stop Time Status Last Admin Dose Admin Albuterol/ Ipratropium (Albuterol/ Ipratropium) 3 ml Q4HRT HHN 11/20/18 15:00 11/22/18 22:59 11/21/18 22:27 Chlorhexidine Gluconate (Mayra-Hex 2%) 1 applic DAILY@1999 TOPIC 11/20/18 20:00 12/19/18 19:59 11/21/18 20:15 Famotidine (Pepcid) 20 mg BID ORAL 11/20/18 18:00 12/18/18 08:59 11/21/18 17:49 Folic Acid (Folate) 1 mg DAILY ORAL 11/21/18 09:00 12/18/18 08:59 11/21/18 08:09 Gabapentin (Neurontin) 300 mg THREE TIMES A DAY ORAL 11/20/18 13:00 12/18/18 08:59 11/21/18 17:49 Heparin Sodium (Porcine) (Heparin 5000 units/ml) 5,000 units EVERY 12 HOURS SUBQ 11/20/18 21:00 12/17/18 20:59 11/21/18 20:17 Heparin Sodium/ Sodium Chloride (Heparin 1000 units/500ml Premix) 1,000 unit ONCE PRN IV PICC PLACEMENT 11/20/18 11:15 11/22/18 23:59 Lidocaine HCl (Xylocaine 1% 30ml) 30 ml ONCE PRN INJ PICC PLACEMENT 11/20/18 11:15 11/22/18 23:59 Methylprednisolone Sodium Succinate (Solu-MEDROL) 40 mg EVERY 12 HOURS IVP 11/22/18 09:00 12/22/18 08:59 Piperacillin Sod/ Tazobactam Sod 3.375 gm/Dextrose 110 ml @ 27.5 mls/hr EVERY 12 HOURS IVPB 11/20/18 21:00 11/24/18 20:59 11/21/18 20:16 Thiamine HCl (Vitamin B1) 100 mg DAILY ORAL 11/21/18 09:00 12/18/18 08:59 11/21/18 08:09 Abhijit Morris MD Nov 22, 2018 07:10
[2018-11-22 08:00] VITALS: BP 136/69
--- NOTE | 2018-11-22 08:07 | General Progress Note ---
Assessment/Plan Problem List: (1) PNA (pneumonia) ICD Codes: J18.9 - Pneumonia, unspecified organism SNOMED: 982735472 (2) Opiate dependence, continuous ICD Codes: F11.20 - Opioid dependence, uncomplicated SNOMED: 898103227 (3) CHF (congestive heart failure) ICD Codes: I50.9 - CHF (congestive heart failure) SNOMED: 45617357 (4) Tachycardia ICD Codes: R00.0 - Tachycardia, unspecified SNOMED: 7832603 (5) HTN (hypertension) ICD Codes: I10 - Essential (primary) hypertension SNOMED: 46366568 (6) COPD exacerbation ICD Codes: J44.1 - Chronic obstructive pulmonary disease with (acute) exacerbation SNOMED: 815535825, 381607950 (7) Respiratory distress ICD Codes: R06.03 - Acute respiratory distress SNOMED: 632431283 (8) Severe sepsis ICD Codes: A41.9 - Sepsis, unspecified organism; R65.20 - Severe sepsis without septic shock SNOMED: 41693834 Status: stable, progressing Assessment/Plan cont current rx resp care o2 abx monitor cxr diuresis monitor cxr/labs Subjective ROS Limited/Unobtainable: No Constitutional: Reports: malaise, weakness HEENT: Reports: no symptoms Cardiovascular: Reports: no symptoms Respiratory: Reports: cough, shortness of breath Gastrointestinal/Abdominal: Reports: no symptoms Genitourinary: Reports: no symptoms Neurologic/Psychiatric: Reports: anxiety Endocrine: Reports: no symptoms Hematologic/Lymphatic: Reports: no symptoms Allergies: Coded Allergies: No Known Allergies (Unverified , 10/17/18) All Systems: reviewed and negative except above Subjective no events. agitated. refusing bipap. no fevers. eats well. on venti mask. no cp elevated npa. on iv lasix. Objective Last 24 Hour Vital Signs Date Time Temp Pulse Resp B/P (MAP) Pulse Ox O2 Delivery O2 Flow Rate FiO2 11/22/18 07:19 90 21 98 Venturi Mask 12.0 50 11/22/18 07:09 105 23 92 Venturi Mask 12.0 50 11/22/18 07:08 Venturi Mask 10.0 45 11/22/18 07:08 92 Venturi Mask 12.0 50 11/22/18 04:00 97.4 70 21 125/65 (85) 95 3/20/19 04:00 70 11/22/18 04:00 10.0 45 11/22/18 04:00 Venturi Mask 10.0 11/22/18 02:28 Venturi Mask 12.0 50 11/22/18 02:27 Venturi Mask 12.0 50 11/22/18 00:00 97.5 105 20 135/90 (105) 94 11/22/18 00:00 92 11/22/18 00:00 Venturi Mask 10.0 11/21/18 22:37 95 21 98 Venturi Mask 12.0 50 11/21/18 22:27 88 23 95 Venturi Mask 12.0 50 11/21/18 20:00 97.5 85 22 130/81 (97) 96 11/21/18 20:00 Venturi Mask 10.0 11/21/18 20:00 10.0 45 11/21/18 20:00 107 11/21/18 19:24 92 20 97 Venturi Mask 12.0 50 11/21/18 19:18 Venturi Mask 10.0 45 11/21/18 19:18 92 Venturi Mask 10.0 45 11/21/18 19:16 98 22 92 Venturi Mask 10.0 45 11/21/18 16:00 97.9 106 22 131/64 (86) 96 11/21/18 16:00 Venturi Mask 10.0 11/21/18 16:00 117 11/21/18 15:06 68 18 96 Venturi Mask 10.0 45 11/21/18 14:56 67 20 95 Venturi Mask 10.0 45 11/21/18 12:00 98.1 101 20 121/72 (88) 97 11/21/18 12:00 99 11/21/18 12:00 Venturi Mask 10.0 11/21/18 12:00 10.0 45 11/21/18 10:45 69 18 94 Venturi Mask 10.0 45 11/21/18 10:35 61 19 94 Venturi Mask 10.0 45 Intake and Output 11/21/18 11/22/18 19:00 07:00 Intake Total 800 ml 930.0 ml Output Total 550 ml 1800 ml Balance 250 ml -870.0 ml Intake Oral 120 ml IV Total 800 ml 810.0 ml Output Urine Total 550 ml 1800 ml # Bowel Movements 4 4 Laboratory Tests 11/21/18 08:50: Arterial Blood pH 7.315L, Arterial Blood Partial Pressure CO2 56.5*H, Arterial Blood Partial Pressure O2 68.9L, Arterial Blood HCO3 28.1H, Arterial Blood Oxygen Saturation 92.3L, Arterial Blood Base Excess 1.2, Cameron Test Positive Height (Feet): 5 Height (Inches): 4.00 Weight (Pounds): 121 Objective General Appearance: WD/WN, alert Neck: supple Cardiovascular: normal rate Respiratory/Chest: chest wall non-tender, lungs clear, normal breath sounds Abdomen: normal bowel sounds, non tender, soft, no organomegaly Edema: no edema noted Arm (L), no edema noted Arm (R), no edema noted Leg (L), no edema noted Leg (R), no edema noted Pedal (L), no edema noted Pedal (R), no edema noted 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
[2018-11-22] MEDS: Thiamine 100mg tab ORAL SCH (09:06)
[2018-11-22] MEDS: Solu-MEDROL 125mg Inj IVP SCH ×2 (09:08→20:48)
[2018-11-22] MEDS: Heparin 5000 units/ml inj SUBQ SCH ×2 (09:09→20:49)
[2018-11-22] MEDS: Piperacillin/Tazobactam 3.375 GM in D5W 110 ML IVPB SCH (09:16)
--- NOTE | 2018-11-22 10:37 | Infectious Diseases Prog Note ---
Assessment/Plan Assessment/Plan antibiotics : zosyn A 1. pneumonia improving 2. UTI 3. CHF 4. hypertension 5. COPD P 1. continue zosyn 2. will follow up cultures Subjective Constitutional: Denies: fever, chills Respiratory: Reports: shortness of breath - decreased, dry cough - decreased Gastrointestinal/Abdominal: Reports: diarrhea - mild; Denies: nausea, vomiting Musculoskeletal: Denies: pain Allergies: Coded Allergies: No Known Allergies (Unverified , 10/17/18) Objective Vital Signs Last 24 Hour Vital Signs Date Time Temp Pulse Resp B/P (MAP) Pulse Ox O2 Delivery O2 Flow Rate FiO2 11/22/18 08:15 99 11/22/18 07:19 90 21 98 Venturi Mask 12.0 50 11/22/18 07:09 105 23 92 Venturi Mask 12.0 50 11/22/18 07:08 Venturi Mask 10.0 45 11/22/18 07:08 92 Venturi Mask 12.0 50 11/22/18 04:00 97.4 70 21 125/65 (85) 95 11/22/18 04:00 70 11/22/18 04:00 10.0 45 11/22/18 04:00 Venturi Mask 10.0 11/22/18 02:28 Venturi Mask 12.0 50 11/22/18 02:27 Venturi Mask 12.0 50 11/22/18 00:00 97.5 105 20 135/90 (105) 94 11/22/18 00:00 92 11/22/18 00:00 Venturi Mask 10.0 11/21/18 22:37 95 21 98 Venturi Mask 12.0 50 11/21/18 22:27 88 23 95 Venturi Mask 12.0 50 11/21/18 20:00 97.5 85 22 130/81 (97) 96 11/21/18 20:00 Venturi Mask 10.0 11/21/18 20:00 10.0 45 11/21/18 20:00 107 11/21/18 19:24 92 20 97 Venturi Mask 12.0 50 11/21/18 19:18 Venturi Mask 10.0 45 11/21/18 19:18 92 Venturi Mask 10.0 45 11/21/18 19:16 98 22 92 Venturi Mask 10.0 45 11/21/18 16:00 97.9 106 22 131/64 (86) 96 11/21/18 16:00 Venturi Mask 10.0 11/21/18 16:00 117 11/21/18 15:06 68 18 96 Venturi Mask 10.0 45 11/21/18 14:56 67 20 95 Venturi Mask 10.0 45 11/21/18 12:00 98.1 101 20 121/72 (88) 97 11/21/18 12:00 99 11/21/18 12:00 Venturi Mask 10.0 11/21/18 12:00 10.0 45 11/21/18 10:45 69 18 94 Venturi Mask 10.0 45 Height (Feet): 5 Height (Inches): 4.00 Weight (Pounds): 121 Respiratory/Chest: lungs clear Cardiovascular: normal rate, regular rhythm, no gallop/murmur Abdomen: soft, non tender Extremities: no edema Microbiology Date/Time Source Procedure Growth Status 11/20/18 05:00 Sputum Expectorated Gram Stain - Final Complete 11/20/18 05:00 Sputum Expectorated Sputum Culture - Final NORMAL UPPER RESPIRATORY STAN PRESENT Complete Current Medications Medications (Trade) Dose Ordered Sig/Aimee Route PRN Reason Start Time Stop Time Status Last Admin Dose Admin Albuterol/ Ipratropium (Albuterol/ Ipratropium) 3 ml Q4HRT HHN 11/20/18 15:00 11/22/18 22:59 11/22/18 07:10 Chlorhexidine Gluconate (Mayra-Hex 2%) 1 applic DAILY@2000 TOPIC 11/20/18 20:00 12/19/18 19:59 11/21/18 20:15 Famotidine (Pepcid) 20 mg BID ORAL 11/20/18 18:00 12/18/18 08:59 11/22/18 09:06 Folic Acid (Folate) 1 mg DAILY ORAL 11/21/18 09:00 12/18/18 08:59 11/22/18 09:06 Gabapentin (Neurontin) 300 mg THREE TIMES A DAY ORAL 11/20/18 13:00 12/18/18 08:59 11/22/18 09:05 Heparin Sodium (Porcine) (Heparin 5000 units/ml) 5,000 units EVERY 12 HOURS SUBQ 11/20/18 21:00 12/17/18 20:59 11/22/18 09:09 Heparin Sodium/ Sodium Chloride (Heparin 1000 units/500ml Premix) 1,000 unit ONCE PRN IV PICC PLACEMENT 11/20/18 11:15 11/22/18 23:59 Lidocaine HCl (Xylocaine 1% 30ml) 30 ml ONCE PRN INJ PICC PLACEMENT 11/20/18 11:15 11/22/18 23:59 Methylprednisolone Sodium Succinate (Solu-MEDROL) 40 mg EVERY 12 HOURS IVP 11/22/18 09:00 12/22/18 08:59 11/22/18 09:08 Piperacillin Sod/ Tazobactam Sod 3.375 gm/Dextrose 110 ml @ 27.5 mls/hr EVERY 12 HOURS IVPB 11/20/18 21:00 11/24/18 20:59 11/22/18 09:16 Thiamine HCl (Vitamin B1) 100 mg DAILY ORAL 11/21/18 09:00 12/18/18 08:59 11/22/18 09:06 Jessy Zabala MD Nov 22, 2018 10:37
[2018-11-22 12:00] VITALS: BP 133/86
[2018-11-22 16:00] VITALS: BP 131/72
[2018-11-22] MEDS: Zosyn 3.375gm q8h **Extended infusion IVPB SCH ×2 (16:06)
[2018-11-22 20:00] VITALS: BP 105/65
[2018-11-22] MEDS: Dyna-Hex 2% Top Sol 2oz TOPIC SCH (20:48)
[2018-11-22] MEDS ORDERED: Piperacillin/Tazobactam 3.375 GM in D5W 110 ML IVPB SCH (21:00)
[2018-11-23] VITALS: BP 111/61
[2018-11-23] MEDS: Zosyn 3.375gm q8h **Extended infusion IVPB SCH ×6 (01:01→17:12)
[2018-11-23 04:00] VITALS: BP 134/82
[2018-11-23 05:55] LABS: ALANINE AMINOTRANSFERASE 19 U/L (12-78); ALBUMIN 2.9 G/DL (3.4-5.0); ALBUMIN/GLOBULIN RATIO 0.7 (1.0-2.7); ALKALINE PHOSPHATASE 54 U/L (46-116); ANION GAP 6 mmol/L (5-15); ASPARTATE AMINO TRANSFERASE 15 U/L (15-37); BILIRUBIN,TOTAL 0.3 MG/DL (0.2-1.0); BLOOD UREA NITROGEN 22 mg/dL (7-18); CALCIUM 8.9 MG/DL (8.5-10.1); CARBON DIOXIDE 35 MMOL/L (21-32); CHLORIDE 103 MMOL/L (98-107); POTASSIUM 3.8 MMOL/L (3.5-5.1); SODIUM 144 MMOL/L (136-145)
--- NOTE | 2018-11-23 07:54 | General Progress Note ---
Assessment/Plan Problem List: (1) PNA (pneumonia) ICD Codes: J18.9 - Pneumonia, unspecified organism SNOMED: 977329932 (2) Opiate dependence, continuous ICD Codes: F11.20 - Opioid dependence, uncomplicated SNOMED: 496942995 (3) CHF (congestive heart failure) ICD Codes: I50.9 - CHF (congestive heart failure) SNOMED: 63810423 (4) Tachycardia ICD Codes: R00.0 - Tachycardia, unspecified SNOMED: 5702677 (5) HTN (hypertension) ICD Codes: I10 - Essential (primary) hypertension SNOMED: 38822783 (6) COPD exacerbation ICD Codes: J44.1 - Chronic obstructive pulmonary disease with (acute) exacerbation SNOMED: 078065402, 687009587 (7) Respiratory distress ICD Codes: R06.03 - Acute respiratory distress SNOMED: 466003822 (8) Severe sepsis ICD Codes: A41.9 - Sepsis, unspecified organism; R65.20 - Severe sepsis without septic shock SNOMED: 94488283 Status: stable, progressing Assessment/Plan cont current rx resp care o2 abx monitor cxr diuresis monitor cxr/labs Subjective ROS Limited/Unobtainable: No Constitutional: Reports: malaise, weakness HEENT: Reports: no symptoms Cardiovascular: Reports: no symptoms Respiratory: Reports: cough, shortness of breath, SOB with excertion Gastrointestinal/Abdominal: Reports: no symptoms Genitourinary: Reports: no symptoms Neurologic/Psychiatric: Reports: no symptoms Endocrine: Reports: no symptoms Hematologic/Lymphatic: Reports: anemia Allergies: Coded Allergies: No Known Allergies (Unverified , 10/17/18) All Systems: reviewed and negative except above Subjective no events. decreased sob. on nasal cannula. Objective Last 24 Hour Vital Signs Date Time Temp Pulse Resp B/P (MAP) Pulse Ox O2 Delivery O2 Flow Rate FiO2 11/23/18 04:00 98.1 106 22 134/82 (99) 98 11/23/18 04:00 85 11/23/18 04:00 Nasal Cannula 4.0 11/23/18 00:00 Nasal Cannula 4.0 11/23/18 00:00 98.1 103 16 111/61 (78) 98 11/23/18 00:00 95 11/22/18 20:00 97.9 101 16 105/65 (78) 98 11/22/18 20:00 Nasal Cannula 4.0 11/22/18 20:00 104 11/22/18 19:58 110 24 100 Nasal Cannula 2.0 28 11/22/18 19:49 102 24 100 Nasal Cannula 2.0 28 11/22/18 19:49 Nasal Cannula 2.0 28 11/22/18 19:49 100 Nasal Cannula 2.0 28 11/22/18 16:00 Nasal Cannula 4.0 11/22/18 16:00 97.9 118 24 131/72 (91) 96 11/22/18 15:32 132 11/22/18 15:19 100 20 96 Nasal Cannula 4.0 36 11/22/18 15:09 119 23 95 Venturi Mask 12.0 50 11/22/18 12:00 98.1 115 24 133/86 (102) 97 11/22/18 12:00 Venturi Mask 10.0 11/22/18 11:29 138 11/22/18 11:20 95 20 99 Venturi Mask 12.0 50 11/22/18 11:10 113 23 99 Venturi Mask 12.0 50 11/22/18 08:15 99 11/22/18 08:00 97.9 126 24 136/69 (91) 94 11/22/18 08:00 Venturi Mask 10.0 Intake and Output 11/22/18 11/23/18 19:00 07:00 Intake Total 415.0 ml 537.5 ml Output Total 3500 ml 600 ml Balance -3085.0 ml -62.5 ml Intake Oral 360 ml 400 ml IV Total 55.0 ml 137.5 ml Output Urine Total 3500 ml 600 ml # Bowel Movements 4 2 Laboratory Tests 11/23/18 03:40: Sodium Level 144, Potassium Level 3.8, Chloride Level 103, Carbon Dioxide Level 35H, Anion Gap 6, Blood Urea Nitrogen 22H, Creatinine 1.0, Estimat Glomerular Filtration Rate , Glucose Level 195H, Calcium Level 8.9, Magnesium Level 1.7L, Total Bilirubin 0.3, Aspartate Amino Transf (AST/SGOT) 15, Alanine Aminotransferase (ALT/SGPT) 19, Alkaline Phosphatase 54, Total Protein 6.8, Albumin 2.9L, Globulin 3.9, Albumin/Globulin Ratio 0.7L Height (Feet): 5 Height (Inches): 4.00 Weight (Pounds): 118 Objective General Appearance: WD/WN, alert Neck: supple Cardiovascular: normal rate Respiratory/Chest: chest wall non-tender, lungs clear, normal breath sounds Abdomen: normal bowel sounds, non tender, soft, no organomegaly Edema: no edema noted Arm (L), no edema noted Arm (R), no edema noted Leg (L), no edema noted Leg (R), no edema noted Pedal (L), no edema noted Pedal (R), no edema noted 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
[2018-11-23 08:00] VITALS: BP 123/78
[2018-11-23] MEDS: Solu-MEDROL 125mg Inj IVP SCH (08:53)
[2018-11-23] MEDS: Thiamine 100mg tab ORAL SCH (08:54)
[2018-11-23] MEDS: Heparin 5000 units/ml inj SUBQ SCH ×2 (08:56→20:26)
[2018-11-23] MEDS ORDERED: dilTIAZem HCl CD 180mg cap ORAL SCH (09:00)
[2018-11-23 12:00] VITALS: BP 139/73
--- NOTE | 2018-11-23 12:41 | Infectious Diseases Prog Note ---
Assessment/Plan Assessment/Plan A: Sepsis cultures negative Pneumonia Hypercapnic respiratory failure Anemia PVD R eight rib fracture Acute renal failure improved P; Continue Zosyn , Will f/u cultures Subjective ROS Limited/Unobtainable: No Constitutional: Reports: no symptoms Respiratory: Reports: productive cough Cardiovascular: Reports: no symptoms Gastrointestinal/Abdominal: Reports: no symptoms Genitourinary: Reports: no symptoms Allergies: Coded Allergies: No Known Allergies (Unverified , 10/17/18) Objective Vital Signs Last 24 Hour Vital Signs Date Time Temp Pulse Resp B/P (MAP) Pulse Ox O2 Delivery O2 Flow Rate FiO2 11/23/18 12:00 99.1 106 23 139/73 (95) 94 11/23/18 12:00 Nasal Cannula 4.0 11/23/18 08:54 113 123/78 11/23/18 08:00 119 11/23/18 08:00 98.3 113 23 123/78 (93) 97 11/23/18 08:00 Nasal Cannula 4.0 11/23/18 04:00 98.1 106 22 134/82 (99) 98 11/23/18 04:00 85 11/23/18 04:00 Nasal Cannula 4.0 11/23/18 00:00 Nasal Cannula 4.0 11/23/18 00:00 98.1 103 16 111/61 (78) 98 11/23/18 00:00 95 11/22/18 20:00 97.9 101 16 105/65 (78) 98 11/22/18 20:00 Nasal Cannula 4.0 11/22/18 20:00 104 11/22/18 19:58 110 24 100 Nasal Cannula 2.0 28 11/22/18 19:49 102 24 100 Nasal Cannula 2.0 28 11/22/18 19:49 Nasal Cannula 2.0 28 11/22/18 19:49 100 Nasal Cannula 2.0 28 11/22/18 16:00 Nasal Cannula 4.0 11/22/18 16:00 97.9 118 24 131/72 (91) 96 11/22/18 15:32 132 11/22/18 15:19 100 20 96 Nasal Cannula 4.0 36 11/22/18 15:09 119 23 95 Venturi Mask 12.0 50 Height (Feet): 5 Height (Inches): 4.00 Weight (Pounds): 118 General Appearance: no acute distress, cachetic HEENT: mucous membranes moist Respiratory/Chest: lungs clear, decreased breath sounds Cardiovascular: tachycardia Abdomen: soft, non tender Extremities: no edema Neurologic/Psychiatric: alert, responsive Laboratory Tests Test 11/23/18 03:40 Sodium Level 144 MMOL/L (136-145) Potassium Level 3.8 MMOL/L (3.5-5.1) Chloride Level 103 MMOL/L (98-107) Carbon Dioxide Level 35 MMOL/L (21-32) H Anion Gap 6 mmol/L (5-15) Blood Urea Nitrogen 22 mg/dL (7-18) H Creatinine 1.0 MG/DL (0.55-1.30) Estimat Glomerular Filtration Rate mL/min (>60) Glucose Level 195 MG/DL (74-106) H Calcium Level 8.9 MG/DL (8.5-10.1) Magnesium Level 1.7 MG/DL (1.8-2.4) L Total Bilirubin 0.3 MG/DL (0.2-1.0) Aspartate Amino Transf (AST/SGOT) 15 U/L (15-37) Alanine Aminotransferase (ALT/SGPT) 19 U/L (12-78) Alkaline Phosphatase 54 U/L (46-116) Total Protein 6.8 G/DL (6.4-8.2) Albumin 2.9 G/DL (3.4-5.0) L Globulin 3.9 g/dL Albumin/Globulin Ratio 0.7 (1.0-2.7) L Current Medications Medications (Trade) Dose Ordered Sig/Aimee Route PRN Reason Start Time Stop Time Status Last Admin Dose Admin Chlorhexidine Gluconate (Mayra-Hex 2%) 1 applic DAILY@1999 TOPIC 11/20/18 20:00 12/19/18 19:59 11/22/18 20:48 Diltiazem HCl (Cardizem CD) 180 mg DAILY ORAL 11/23/18 09:00 12/23/18 08:59 11/23/18 08:54 Famotidine (Pepcid) 20 mg BID ORAL 11/20/18 18:00 12/18/18 08:59 11/23/18 08:53 Folic Acid (Folate) 1 mg DAILY ORAL 11/21/18 09:00 12/18/18 08:59 11/23/18 08:54 Gabapentin (Neurontin) 300 mg THREE TIMES A DAY ORAL 11/20/18 13:00 12/18/18 08:59 11/23/18 08:54 Heparin Sodium (Porcine) (Heparin 5000 units/ml) 5,000 units EVERY 12 HOURS SUBQ 11/20/18 21:00 12/17/18 20:59 11/23/18 08:56 Magnesium Sulfate 100 ml @ 100 mls/hr Q1H IVPB 11/23/18 11:30 11/23/18 13:29 11/23/18 11:31 Methylprednisolone Sodium Succinate (Solu-MEDROL) 40 mg EVERY 12 HOURS IVP 11/22/18 09:00 12/22/18 08:59 11/23/18 08:53 Piperacillin Sod/ Tazobactam Sod 3.375 gm/Sodium Chloride 110 ml @ 27.5 mls/hr Q8HR@0100,0900,1700 IVPB 11/22/18 17:00 11/26/18 16:59 11/23/18 08:55 Thiamine HCl (Vitamin B1) 100 mg DAILY ORAL 11/21/18 09:00 12/18/18 08:59 11/23/18 08:54 Jez Espinoza MD Nov 23, 2018 12:41
--- NOTE | 2018-11-23 12:49 | Pulmonology Progress Note ---
Assessment/Plan Assessment/Plan ASSESSMENT: COPD exacerbation respiratory failure shock UTI possible pneumonia. Has small left effusion; too small to tap. PLAN: IV antibiotics per ID. Will diurese as needed; CXR suggestive of fluid overload. Continue face mask o2 DVT and stress ulcer prophylaxis. Subjective Interval Events: none new Constitutional: Reports: no symptoms HEENT: Repors: no symptoms Respiratory: Reports: no symptoms Cardiovascular: Reports: no symptoms Gastrointestinal/Abdominal: Reports: no symptoms Genitourinary: Reports: no symptoms Neurologic: Reports: no symptoms Allergies: Coded Allergies: No Known Allergies (Unverified , 10/17/18) Objective Last 24 Hour Vital Signs Date Time Temp Pulse Resp B/P (MAP) Pulse Ox O2 Delivery O2 Flow Rate FiO2 11/23/18 12:00 99.1 106 23 139/73 (95) 94 11/23/18 12:00 Nasal Cannula 4.0 11/23/18 08:54 113 123/78 11/23/18 08:00 119 11/23/18 08:00 98.3 113 23 123/78 (93) 97 11/23/18 08:00 Nasal Cannula 4.0 11/23/18 04:00 98.1 106 22 134/82 (99) 98 11/23/18 04:00 85 11/23/18 04:00 Nasal Cannula 4.0 11/23/18 00:00 Nasal Cannula 4.0 11/23/18 00:00 98.1 103 16 111/61 (78) 98 11/23/18 00:00 95 11/22/18 20:00 97.9 101 16 105/65 (78) 98 11/22/18 20:00 Nasal Cannula 4.0 11/22/18 20:00 104 11/22/18 19:58 110 24 100 Nasal Cannula 2.0 28 11/22/18 19:49 102 24 100 Nasal Cannula 2.0 28 11/22/18 19:49 Nasal Cannula 2.0 28 11/22/18 19:49 100 Nasal Cannula 2.0 28 11/22/18 16:00 Nasal Cannula 4.0 11/22/18 16:00 97.9 118 24 131/72 (91) 96 11/22/18 15:32 132 11/22/18 15:19 100 20 96 Nasal Cannula 4.0 36 11/22/18 15:09 119 23 95 Venturi Mask 12.0 50 Intake and Output 11/22/18 11/23/18 18:59 06:59 Intake Total 415.0 ml 537.5 ml Output Total 3500 ml 600 ml Balance -3085.0 ml -62.5 ml Intake Oral 360 ml 400 ml IV Total 55.0 ml 137.5 ml Output Urine Total 3500 ml 600 ml # Bowel Movements 4 2 General Appearance: no acute distress HEENT: normocephalic Respiratory/Chest: chest wall non-tender, lungs clear Cardiovascular: normal peripheral pulses, normal rate Abdomen: normal bowel sounds Laboratory Tests 11/23/18 03:40: Sodium Level 144, Potassium Level 3.8, Chloride Level 103, Carbon Dioxide Level 35H, Anion Gap 6, Blood Urea Nitrogen 22H, Creatinine 1.0, Estimat Glomerular Filtration Rate , Glucose Level 195H, Calcium Level 8.9, Magnesium Level 1.7L, Total Bilirubin 0.3, Aspartate Amino Transf (AST/SGOT) 15, Alanine Aminotransferase (ALT/SGPT) 19, Alkaline Phosphatase 54, Total Protein 6.8, Albumin 2.9L, Globulin 3.9, Albumin/Globulin Ratio 0.7L Current Medications Medications (Trade) Dose Ordered Sig/Aimee Route PRN Reason Start Time Stop Time Status Last Admin Dose Admin Chlorhexidine Gluconate (Mayra-Hex 2%) 1 applic DAILY@1999 TOPIC 11/20/18 20:00 12/19/18 19:59 11/22/18 20:48 Diltiazem HCl (Cardizem CD) 180 mg DAILY ORAL 11/23/18 09:00 12/23/18 08:59 11/23/18 08:54 Famotidine (Pepcid) 20 mg BID ORAL 11/20/18 18:00 12/18/18 08:59 11/23/18 08:53 Folic Acid (Folate) 1 mg DAILY ORAL 11/21/18 09:00 12/18/18 08:59 11/23/18 08:54 Gabapentin (Neurontin) 300 mg THREE TIMES A DAY ORAL 11/20/18 13:00 12/18/18 08:59 11/23/18 12:41 Heparin Sodium (Porcine) (Heparin 5000 units/ml) 5,000 units EVERY 12 HOURS SUBQ 11/20/18 21:00 12/17/18 20:59 11/23/18 08:56 Magnesium Sulfate 100 ml @ 100 mls/hr Q1H IVPB 11/23/18 11:30 11/23/18 13:29 11/23/18 12:42 Methylprednisolone Sodium Succinate (Solu-MEDROL) 40 mg EVERY 12 HOURS IVP 11/22/18 09:00 12/22/18 08:59 11/23/18 08:53 Piperacillin Sod/ Tazobactam Sod 3.375 gm/Sodium Chloride 110 ml @ 27.5 mls/hr Q8HR@0100,0900,1700 IVPB 11/22/18 17:00 11/26/18 16:59 11/23/18 08:55 Thiamine HCl (Vitamin B1) 100 mg DAILY ORAL 11/21/18 09:00 12/18/18 08:59 11/23/18 08:54 Abhijit Morris MD Nov 23, 2018 12:49
--- NOTE | 2018-11-23 13:07 | Diagnostic Imaging Report ---
Indication: Dyspnea Comparison: 11/20/2018 A single view chest radiograph was obtained. Findings: Hazy opacities at the lung bases noted obscuring the diaphragm. Underlying infiltrate and/or atelectasis may be present. In addition pulmonary vascularity and interstitium appear prominent but probably stable. The heart is enlarged. IMPRESSION: No significant change compared to the prior exam
[2018-11-23 16:00] VITALS: BP 111/71
[2018-11-23 20:00] VITALS: BP 126/82
[2018-11-23] MEDS: Solu-MEDROL 40mg Inj IVP SCH (20:25)
[2018-11-23] MEDS: Dyna-Hex 2% Top Sol 2oz TOPIC SCH (20:25)
[2018-11-24] VITALS: BP 135/94
[2018-11-24] MEDS: Piperacillin/Tazobactam 3.375 GM in NS 110 ML IVPB SCH ×2 (01:00→08:56)
[2018-11-24 04:00] VITALS: BP 129/81
[2018-11-24 08:00] VITALS: BP 102/70
--- NOTE | 2018-11-24 08:24 | General Progress Note ---
Assessment/Plan Problem List: (1) PNA (pneumonia) ICD Codes: J18.9 - Pneumonia, unspecified organism SNOMED: 231111211 (2) Opiate dependence, continuous ICD Codes: F11.20 - Opioid dependence, uncomplicated SNOMED: 819262035 (3) CHF (congestive heart failure) ICD Codes: I50.9 - CHF (congestive heart failure) SNOMED: 10643793 (4) Tachycardia ICD Codes: R00.0 - Tachycardia, unspecified SNOMED: 8795134 (5) HTN (hypertension) ICD Codes: I10 - Essential (primary) hypertension SNOMED: 84320326 (6) COPD exacerbation ICD Codes: J44.1 - Chronic obstructive pulmonary disease with (acute) exacerbation SNOMED: 770351992, 350125304 (7) Respiratory distress ICD Codes: R06.03 - Acute respiratory distress SNOMED: 023127249 (8) Severe sepsis ICD Codes: A41.9 - Sepsis, unspecified organism; R65.20 - Severe sepsis without septic shock SNOMED: 20837933 Status: stable, progressing Assessment/Plan cont current rx resp care o2 steroids abx monitor cxr prn diuresis monitor cxr/labs Subjective ROS Limited/Unobtainable: No Constitutional: Reports: malaise, weakness HEENT: Reports: no symptoms Cardiovascular: Reports: no symptoms Respiratory: Reports: no symptoms Gastrointestinal/Abdominal: Reports: no symptoms Genitourinary: Reports: no symptoms Neurologic/Psychiatric: Reports: no symptoms Endocrine: Reports: no symptoms Hematologic/Lymphatic: Reports: no symptoms Allergies: Coded Allergies: No Known Allergies (Unverified , 10/17/18) All Systems: reviewed and negative except above Subjective no events. decreased sob. on nasal cannula 4l. denies chest pain no fevers. Objective Last 24 Hour Vital Signs Date Time Temp Pulse Resp B/P (MAP) Pulse Ox O2 Delivery O2 Flow Rate FiO2 11/24/18 04:00 97.3 77 20 129/81 (97) 96 11/24/18 04:00 69 11/24/18 00:00 75 11/24/18 00:00 97.9 90 20 135/94 (108) 96 11/23/18 20:00 Nasal Cannula 4.0 11/23/18 20:00 78 11/23/18 20:00 97.6 97 20 126/82 (97) 95 11/23/18 16:00 Nasal Cannula 4.0 11/23/18 16:00 98.2 91 15 111/71 (84) 97 11/23/18 16:00 112 11/23/18 12:00 102 11/23/18 12:00 99.1 106 23 139/73 (95) 94 11/23/18 12:00 Nasal Cannula 4.0 11/23/18 08:54 113 123/78 Intake and Output 11/23/18 11/24/18 19:00 07:00 Intake Total 730.0 ml 600 ml Output Total 2800 ml 400 ml Balance -2070.0 ml 200 ml Intake Oral 420 ml 600 ml IV Total 310.0 ml Output Urine Total 2800 ml 400 ml # Bowel Movements 4 2 Height (Feet): 5 Height (Inches): 4.00 Weight (Pounds): 120 Objective General Appearance: WD/WN, alert Neck: supple Cardiovascular: normal rate Respiratory/Chest: chest wall non-tender, lungs clear, normal breath sounds Abdomen: normal bowel sounds, non tender, soft, no organomegaly Edema: no edema noted Arm (L), no edema noted Arm (R), no edema noted Leg (L), no edema noted Leg (R), no edema noted Pedal (L), no edema noted Pedal (R), no edema noted Generalized 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
[2018-11-24] MEDS: Thiamine 100mg tab ORAL SCH (08:38)
[2018-11-24] MEDS: Solu-MEDROL 40mg Inj IVP SCH ×2 (08:40→21:27)
[2018-11-24] MEDS: Heparin 5000 units/ml inj SUBQ SCH ×2 (08:42→21:29)
[2018-11-24] MEDS ORDERED: dilTIAZem HCl CD 180mg cap ORAL SCH (09:00)
--- NOTE | 2018-11-24 10:02 | Infectious Diseases Prog Note ---
Assessment/Plan Assessment/Plan antibiotics : zosyn A 1. pneumonia improving 2. UTI 3. CHF 4. hypertension 5. COPD P 1. d/c zosyn 2. observe off antibiotics Subjective Constitutional: Denies: fever, chills Respiratory: Reports: shortness of breath - decreased, dry cough - decreased Gastrointestinal/Abdominal: Reports: diarrhea; Denies: nausea, vomiting Musculoskeletal: Denies: pain Allergies: Coded Allergies: No Known Allergies (Unverified , 10/17/18) Objective Vital Signs Last 24 Hour Vital Signs Date Time Temp Pulse Resp B/P (MAP) Pulse Ox O2 Delivery O2 Flow Rate FiO2 11/24/18 08:40 72 132/76 11/24/18 08:00 97.3 82 20 102/70 (81) 99 11/24/18 04:00 97.3 77 20 129/81 (97) 96 11/24/18 04:00 69 11/24/18 00:00 75 11/24/18 00:00 97.9 90 20 135/94 (108) 96 11/23/18 20:00 Nasal Cannula 4.0 11/23/18 20:00 78 11/23/18 20:00 97.6 97 20 126/82 (97) 95 11/23/18 16:00 Nasal Cannula 4.0 11/23/18 16:00 98.2 91 15 111/71 (84) 97 11/23/18 16:00 112 11/23/18 12:00 102 11/23/18 12:00 99.1 106 23 139/73 (95) 94 11/23/18 12:00 Nasal Cannula 4.0 Height (Feet): 5 Height (Inches): 4.00 Weight (Pounds): 120 Respiratory/Chest: lungs clear Cardiovascular: normal rate, regular rhythm, no gallop/murmur Abdomen: soft, non tender Extremities: no edema Current Medications Medications (Trade) Dose Ordered Sig/Aimee Route PRN Reason Start Time Stop Time Status Last Admin Dose Admin Chlorhexidine Gluconate (Mayra-Hex 2%) 1 applic DAILY@1999 TOPIC 11/23/18 20:00 12/19/18 19:59 11/23/18 20:25 Diltiazem HCl (Cardizem CD) 180 mg DAILY ORAL 11/24/18 09:00 12/23/18 08:59 11/24/18 08:40 Famotidine (Pepcid) 20 mg BID ORAL 11/24/18 09:00 12/18/18 08:59 11/24/18 08:40 Folic Acid (Folate) 1 mg DAILY ORAL 11/24/18 09:00 12/18/18 08:59 11/24/18 08:39 Gabapentin (Neurontin) 300 mg THREE TIMES A DAY ORAL 11/24/18 09:00 12/18/18 08:59 11/24/18 08:40 Heparin Sodium (Porcine) (Heparin 5000 units/ml) 5,000 units EVERY 12 HOURS SUBQ 11/23/18 21:00 12/17/18 20:59 11/24/18 08:42 Methylprednisolone Sodium Succinate (Solu-MEDROL) 40 mg EVERY 12 HOURS IVP 11/23/18 21:00 12/22/18 08:59 11/24/18 08:40 Piperacillin Sod/ Tazobactam Sod 3.375 gm/Sodium Chloride 110 ml @ 27.5 mls/hr Q8HR@0100,0900,1700 IVPB 11/24/18 01:00 11/26/18 16:59 11/24/18 08:56 Thiamine HCl (Vitamin B1) 100 mg DAILY ORAL 11/24/18 09:00 12/18/18 08:59 11/24/18 08:38 Jessy Zabala MD Nov 24, 2018 10:02
[2018-11-24 12:00] VITALS: BP 124/80
[2018-11-24] MEDS ORDERED: guaiFENesin w/Codeine 5ml Liq ud ORAL PRN (13:45)
--- NOTE | 2018-11-24 13:49 | Pulmonology Progress Note ---
Assessment/Plan Assessment/Plan ASSESSMENT: COPD exacerbation respiratory failure shock UTI possible pneumonia. Has small left effusion; too small to tap. PLAN: IV antibiotics per ID. Will diurese as needed; CXR suggestive of fluid overload but unchanged after diuresis Continue face mask o2; now on 4L/min o2 DVT and stress ulcer prophylaxis. Subjective Interval Events: CXR unchanged; saturating well on 4L/mi O2 Constitutional: Reports: no symptoms HEENT: Repors: no symptoms Respiratory: Reports: no symptoms Cardiovascular: Reports: no symptoms Gastrointestinal/Abdominal: Reports: no symptoms Genitourinary: Reports: no symptoms Allergies: Coded Allergies: No Known Allergies (Unverified , 10/17/18) Objective Last 24 Hour Vital Signs Date Time Temp Pulse Resp B/P (MAP) Pulse Ox O2 Delivery O2 Flow Rate FiO2 11/24/18 12:00 97.9 98 17 124/80 (95) 99 11/24/18 09:00 Nasal Cannula 4.0 11/24/18 08:40 72 132/76 11/24/18 08:00 110 11/24/18 08:00 97.3 82 20 102/70 (81) 99 11/24/18 04:00 97.3 77 20 129/81 (97) 96 11/24/18 04:00 69 11/24/18 00:00 75 11/24/18 00:00 97.9 90 20 135/94 (108) 96 11/23/18 20:00 Nasal Cannula 4.0 11/23/18 20:00 78 11/23/18 20:00 97.6 97 20 126/82 (97) 95 11/23/18 16:00 Nasal Cannula 4.0 11/23/18 16:00 98.2 91 15 111/71 (84) 97 11/23/18 16:00 112 Intake and Output 11/23/18 11/24/18 18:59 06:59 Intake Total 730.0 ml 600 ml Output Total 2800 ml 400 ml Balance -2070.0 ml 200 ml Intake Oral 420 ml 600 ml IV Total 310.0 ml Output Urine Total 2800 ml 400 ml # Bowel Movements 4 2 General Appearance: no acute distress HEENT: normocephalic Respiratory/Chest: chest wall non-tender, lungs clear Cardiovascular: normal peripheral pulses Abdomen: normal bowel sounds, soft, non tender Current Medications Medications (Trade) Dose Ordered Sig/Aimee Route PRN Reason Start Time Stop Time Status Last Admin Dose Admin Chlorhexidine Gluconate (Mayra-Hex 2%) 1 applic DAILY@2000 TOPIC 11/23/18 20:00 12/19/18 19:59 11/23/18 20:25 Diltiazem HCl (Cardizem CD) 180 mg BID ORAL 11/24/18 18:00 12/24/18 17:59 UNV Famotidine (Pepcid) 20 mg BID ORAL 11/24/18 09:00 12/18/18 08:59 11/24/18 08:40 Folic Acid (Folate) 1 mg DAILY ORAL 11/24/18 09:00 12/18/18 08:59 11/24/18 08:39 Gabapentin (Neurontin) 300 mg THREE TIMES A DAY ORAL 11/24/18 09:00 12/18/18 08:59 11/24/18 13:10 Guaifenesin/ Codeine Phosphate (Robitussin with codeine) 5 ml Q6H PRN ORAL For Cough 11/24/18 13:45 12/24/18 13:44 Heparin Sodium (Porcine) (Heparin 5000 units/ml) 5,000 units EVERY 12 HOURS SUBQ 11/23/18 21:00 12/17/18 20:59 11/24/18 08:42 Methylprednisolone Sodium Succinate (Solu-MEDROL) 40 mg EVERY 12 HOURS IVP 11/23/18 21:00 12/22/18 08:59 11/24/18 08:40 Thiamine HCl (Vitamin B1) 100 mg DAILY ORAL 11/24/18 09:00 12/18/18 08:59 11/24/18 08:38 Abhijit Morris MD Nov 24, 2018 13:49
[2018-11-24] MEDS: Furosemide 40mg tab ORAL SCH (14:38)
[2018-11-24 16:00] VITALS: BP 133/74
[2018-11-24] MEDS: dilTIAZem HCl CD 180mg cap ORAL SCH (17:22)
[2018-11-24] MEDS: Dyna-Hex 2% Top Sol 2oz TOPIC SCH (20:00)
[2018-11-25] VITALS: BP 128/86
[2018-11-25 04:20] VITALS: BP 119/74
[2018-11-25] MEDS: Thiamine 100mg tab ORAL SCH (08:14)
[2018-11-25] MEDS: Furosemide 40mg tab ORAL SCH (08:14)
[2018-11-25] MEDS: dilTIAZem HCl CD 180mg cap ORAL SCH ×2 (08:17→16:49)
[2018-11-25] MEDS: Heparin 5000 units/ml inj SUBQ SCH ×2 (08:18→21:05)
[2018-11-25] MEDS: Solu-MEDROL 40mg Inj IVP SCH (08:18)
[2018-11-25 08:22] VITALS: BP 119/77
--- NOTE | 2018-11-25 11:03 | Pulmonology Progress Note ---
Assessment/Plan Assessment/Plan ASSESSMENT: COPD exacerbation respiratory failure shock UTI possible pneumonia. Has small left effusion; too small to tap. PLAN: IV antibiotics per ID. Will diurese as needed; CXR suggestive of fluid overload but unchanged after diuresis Continue face mask o2; now on 4L/min o2 DVT and stress ulcer prophylaxis. Subjective Interval Events: On 4L/min O2 Constitutional: Reports: no symptoms HEENT: Repors: no symptoms Respiratory: Reports: no symptoms Cardiovascular: Reports: no symptoms Gastrointestinal/Abdominal: Reports: no symptoms Allergies: Coded Allergies: No Known Allergies (Unverified , 10/17/18) Objective Last 24 Hour Vital Signs Date Time Temp Pulse Resp B/P (MAP) Pulse Ox O2 Delivery O2 Flow Rate FiO2 11/25/18 09:53 Nasal Cannula 4.0 11/25/18 08:22 98.0 110 18 119/77 (91) 98 11/25/18 08:17 110 119/77 11/25/18 08:00 102 11/25/18 04:20 98.2 83 19 119/74 (89) 98 11/25/18 04:20 67 11/25/18 00:00 70 11/25/18 00:00 98.5 84 19 128/86 (100) 98 11/24/18 21:00 Nasal Cannula 4.0 11/24/18 20:00 90 11/24/18 17:22 98 124/80 11/24/18 16:00 98.5 96 19 133/74 (93) 98 11/24/18 16:00 79 11/24/18 12:00 90 11/24/18 12:00 97.9 98 17 124/80 (95) 99 Intake and Output 11/24/18 11/25/18 19:00 07:00 Intake Total 420 ml Output Total 2800 ml 1500 ml Balance -2380 ml -1500 ml Intake Oral 420 ml Output Urine Total 2800 ml 1500 ml # Bowel Movements 3 1 General Appearance: no acute distress HEENT: normocephalic Respiratory/Chest: chest wall non-tender, normal breath sounds Cardiovascular: normal peripheral pulses, normal rate Abdomen: normal bowel sounds, soft, non tender Current Medications Medications (Trade) Dose Ordered Sig/Aimee Route PRN Reason Start Time Stop Time Status Last Admin Dose Admin Chlorhexidine Gluconate (Mayra-Hex 2%) 1 applic DAILY@1999 TOPIC 11/23/18 20:00 12/19/18 19:59 11/24/18 20:00 Diltiazem HCl (Cardizem CD) 180 mg BID ORAL 11/24/18 18:00 12/24/18 17:59 11/25/18 08:17 Famotidine (Pepcid) 20 mg BID ORAL 11/24/18 09:00 12/18/18 08:59 11/25/18 08:14 Folic Acid (Folate) 1 mg DAILY ORAL 11/24/18 09:00 12/18/18 08:59 11/25/18 08:18 Furosemide (Lasix) 40 mg DAILY ORAL 11/24/18 14:00 12/24/18 13:59 11/25/18 08:14 Gabapentin (Neurontin) 300 mg THREE TIMES A DAY ORAL 11/24/18 09:00 12/18/18 08:59 11/25/18 08:14 Guaifenesin/ Codeine Phosphate (Robitussin with codeine) 5 ml Q6H PRN ORAL For Cough 11/24/18 13:45 12/24/18 13:44 11/25/18 04:53 Heparin Sodium (Porcine) (Heparin 5000 units/ml) 5,000 units EVERY 12 HOURS SUBQ 11/23/18 21:00 12/17/18 20:59 11/25/18 08:18 Methylprednisolone (Medrol) 30 mg DAILY ORAL 11/26/18 09:00 12/26/18 08:59 Thiamine HCl (Vitamin B1) 100 mg DAILY ORAL 11/24/18 09:00 12/18/18 08:59 11/25/18 08:14 Abhijit Morris MD Nov 25, 2018 11:03
[2018-11-25 12:03] VITALS: BP 131/82
--- NOTE | 2018-11-25 12:39 | General Progress Note ---
Assessment/Plan Problem List: (1) PNA (pneumonia) ICD Codes: J18.9 - Pneumonia, unspecified organism SNOMED: 927267996 (2) Opiate dependence, continuous ICD Codes: F11.20 - Opioid dependence, uncomplicated SNOMED: 945004870 (3) CHF (congestive heart failure) ICD Codes: I50.9 - CHF (congestive heart failure) SNOMED: 44124947 (4) Tachycardia ICD Codes: R00.0 - Tachycardia, unspecified SNOMED: 0760337 (5) HTN (hypertension) ICD Codes: I10 - Essential (primary) hypertension SNOMED: 92690715 (6) COPD exacerbation ICD Codes: J44.1 - Chronic obstructive pulmonary disease with (acute) exacerbation SNOMED: 609088926, 599528086 (7) Respiratory distress ICD Codes: R06.03 - Acute respiratory distress SNOMED: 506421134 (8) Severe sepsis ICD Codes: A41.9 - Sepsis, unspecified organism; R65.20 - Severe sepsis without septic shock SNOMED: 44462189 Status: stable, progressing Assessment/Plan cont current rx resp care o2 steroids abx monitor cxr prn diuresis monitor cxr/labs Subjective ROS Limited/Unobtainable: No Constitutional: Reports: malaise, weakness HEENT: Reports: no symptoms Cardiovascular: Reports: no symptoms Respiratory: Reports: cough, shortness of breath, wheezing Gastrointestinal/Abdominal: Reports: no symptoms Genitourinary: Reports: no symptoms Neurologic/Psychiatric: Reports: anxiety Endocrine: Reports: no symptoms Hematologic/Lymphatic: Reports: no symptoms Allergies: Coded Allergies: No Known Allergies (Unverified , 10/17/18) All Systems: reviewed and negative except above Subjective no events. decreased sob. on nasal cannula 4l. denies chest pain no fevers. Objective Last 24 Hour Vital Signs Date Time Temp Pulse Resp B/P (MAP) Pulse Ox O2 Delivery O2 Flow Rate FiO2 11/25/18 12:03 97.7 102 20 131/82 (98) 94 11/25/18 09:53 Nasal Cannula 4.0 11/25/18 08:22 98.0 110 18 119/77 (91) 98 11/25/18 08:17 110 119/77 11/25/18 08:00 102 11/25/18 04:20 98.2 83 19 119/74 (89) 98 11/25/18 04:20 67 11/25/18 00:00 70 11/25/18 00:00 98.5 84 19 128/86 (100) 98 11/24/18 21:00 Nasal Cannula 4.0 11/24/18 20:00 90 11/24/18 17:22 98 124/80 11/24/18 16:00 98.5 96 19 133/74 (93) 98 11/24/18 16:00 79 Intake and Output 11/24/18 11/25/18 19:00 07:00 Intake Total 420 ml Output Total 2800 ml 1500 ml Balance -2380 ml -1500 ml Intake Oral 420 ml Output Urine Total 2800 ml 1500 ml # Bowel Movements 3 1 Height (Feet): 5 Height (Inches): 4.00 Weight (Pounds): 120 General Appearance: WD/WN, alert Neck: normal alignment, supple Cardiovascular: normal rate Respiratory/Chest: lungs clear, no respiratory distress Abdomen: normal bowel sounds, non tender, soft, no organomegaly Edema: no edema noted Arm (L), no edema noted Arm (R), no edema noted Leg (L), no edema noted Leg (R), no edema noted Pedal (L), no edema noted Pedal (R), no edema noted Generalized Neurologic: air and water filler II-XII grossly normal, alert, oriented x 3 Objective General Appearance: WD/WN, alert Neck: supple Cardiovascular: normal rate Respiratory/Chest: chest wall non-tender, lungs clear, normal breath sounds Abdomen: normal bowel sounds, non tender, soft, no organomegaly Edema: no edema noted Arm (L), no edema noted Arm (R), no edema noted Leg (L), no edema noted Leg (R), no edema noted Pedal (L), no edema noted Pedal (R), no edema noted Generalized Neurologic: air and water filler II-XII grossly normal, alert Varun Stewart MD Nov 25, 2018 12:39
[2018-11-25] MEDS ORDERED: Tubing IV Secondary IV ONE (15:10)
[2018-11-25] MEDS ORDERED: NS 500ML ONE (15:10)
[2018-11-25] MEDS ORDERED: NS 275ml ONE (15:10)
[2018-11-25 16:00] VITALS: BP 120/89
[2018-11-25 20:00] VITALS: BP 139/79
[2018-11-25] MEDS: Dyna-Hex 2% Top Sol 2oz TOPIC SCH (20:55)
[2018-11-26] VITALS: BP 130/85
[2018-11-26 04:00] VITALS: BP 119/80
[2018-11-26 08:00] VITALS: BP 126/72
[2018-11-26 08:47] LABS: HEMATOCRIT 34.7 % (42.0-52.0); HEMOGLOBIN 10.3 G/DL (14.2-18.0); MEAN CORPUSCULAR VOLUME 90 FL (80-99); PLATELET COUNT 203 K/UL (150-450); RED BLOOD COUNT 3.84 M/UL (4.70-6.10); RED CELL DISTRIBUTION WIDTH 18.2 % (11.6-14.8)
[2018-11-26] MEDS: dilTIAZem HCl CD 180mg cap ORAL SCH ×2 (09:01→17:18)
[2018-11-26] MEDS: Furosemide 40mg tab ORAL SCH (09:02)
[2018-11-26] MEDS: Thiamine 100mg tab ORAL SCH (09:02)
[2018-11-26] MEDS: Heparin 5000 units/ml inj SUBQ SCH ×2 (09:03→21:12)
[2018-11-26 09:09] LABS: ALANINE AMINOTRANSFERASE 24 U/L (12-78); ALBUMIN/GLOBULIN RATIO 0.8 (1.0-2.7); ALKALINE PHOSPHATASE 53 U/L (46-116); ASPARTATE AMINO TRANSFERASE 19 U/L (15-37); BILIRUBIN,TOTAL 0.4 MG/DL (0.2-1.0); BLOOD UREA NITROGEN 22 mg/dL (7-18); CREATININE 0.8 MG/DL (0.55-1.30)
[2018-11-26 09:19] LABS: SODIUM 142 MMOL/L (136-145)
[2018-11-26 09:20] LABS: CHLORIDE 95 MMOL/L (98-107)
[2018-11-26 09:21] LABS: POTASSIUM 4.9 MMOL/L (3.5-5.1)
[2018-11-26 09:24] LABS: CARBON DIOXIDE 46 MMOL/L (21-32)
--- NOTE | 2018-11-26 10:22 | Pulmonology Progress Note ---
Assessment/Plan Assessment/Plan ASSESSMENT: COPD exacerbation respiratory failure; resolved shock UTI possible pneumonia. Has small left effusion; too small to tap. PLAN: Antibiotics per ID. Continue daily LAsix Continue o2; now on 4L/min o2 DVT and stress ulcer prophylaxis. Subjective Interval Events: Looking better Constitutional: Reports: no symptoms HEENT: Repors: no symptoms Respiratory: Reports: no symptoms Cardiovascular: Reports: no symptoms Gastrointestinal/Abdominal: Reports: no symptoms Genitourinary: Reports: no symptoms Neurologic: Reports: no symptoms Allergies: Coded Allergies: No Known Allergies (Unverified , 10/17/18) Objective Last 24 Hour Vital Signs Date Time Temp Pulse Resp B/P (MAP) Pulse Ox O2 Delivery O2 Flow Rate FiO2 11/26/18 09:01 87 126/72 11/26/18 09:00 Nasal Cannula 4.0 11/26/18 08:00 98.9 87 19 126/72 (90) 95 11/26/18 04:00 97.5 87 18 119/80 (93) 98 11/26/18 04:00 75 11/26/18 00:00 98.6 94 18 130/85 (100) 99 11/26/18 00:00 72 11/25/18 21:42 97 Nasal Cannula 3.0 32 11/25/18 21:42 Nasal Cannula 3.0 32 11/25/18 21:00 Nasal Cannula 4.0 11/25/18 20:00 107 11/25/18 20:00 97.9 100 20 139/79 (99) 95 11/25/18 16:49 106 120/89 11/25/18 16:00 97.3 106 20 120/89 (99) 99 11/25/18 16:00 105 11/25/18 12:03 97.7 102 20 131/82 (98) 94 11/25/18 12:00 106 Intake and Output 11/25/18 11/26/18 19:00 07:00 Intake Total 720 ml 360 ml Output Total 1150 ml 1200 ml Balance -430 ml -840 ml Intake Oral 720 ml 360 ml Output Urine Total 1150 ml 1200 ml # Bowel Movements 4 1 General Appearance: no acute distress HEENT: normocephalic Respiratory/Chest: chest wall non-tender, lungs clear Cardiovascular: normal peripheral pulses, normal rate Abdomen: normal bowel sounds, soft, non tender Laboratory Tests 11/26/18 07:05: White Blood Count 15.0H, Red Blood Count 3.84L, Hemoglobin 10.3L, Hematocrit 34.7L, Mean Corpuscular Volume 90, Mean Corpuscular Hemoglobin 26.9L, Mean Corpuscular Hemoglobin Concent 29.8L, Red Cell Distribution Width 18.2H, Platelet Count 203, Mean Platelet Volume 6.6, Neutrophils (%) (Auto) , Lymphocytes (%) (Auto) , Monocytes (%) (Auto) , Eosinophils (%) (Auto) , Basophils (%) (Auto) , Neutrophils % (Manual) [Pending], Lymphocytes % (Manual) [Pending], Platelet Estimate [Pending], Platelet Morphology [Pending], Sodium Level 142, Potassium Level 4.9, Chloride Level 95L, Carbon Dioxide Level 46*H, Blood Urea Nitrogen 22H, Creatinine 0.8, Estimat Glomerular Filtration Rate , Glucose Level 105, Calcium Level 9.0, Magnesium Level 2.0, Total Bilirubin 0.4, Aspartate Amino Transf (AST/SGOT) 19, Alanine Aminotransferase (ALT/SGPT) 24, Alkaline Phosphatase 53, Pro-B-Type Natriuretic Peptide 2480H, Total Protein 6.6 , Albumin 3.0L, Globulin 3.6, Albumin/Globulin Ratio 0.8L Current Medications Medications (Trade) Dose Ordered Sig/Aimee Route PRN Reason Start Time Stop Time Status Last Admin Dose Admin Chlorhexidine Gluconate (Mayra-Hex 2%) 1 applic DAILY@2000 TOPIC 11/23/18 20:00 12/19/18 19:59 11/25/18 20:55 Diltiazem HCl (Cardizem CD) 180 mg BID ORAL 11/24/18 18:00 12/24/18 17:59 11/26/18 09:01 Famotidine (Pepcid) 20 mg BID ORAL 11/24/18 09:00 12/18/18 08:59 11/26/18 09:02 Folic Acid (Folate) 1 mg DAILY ORAL 11/24/18 09:00 12/18/18 08:59 11/26/18 09:01 Furosemide (Lasix) 40 mg DAILY ORAL 11/24/18 14:00 12/24/18 13:59 11/26/18 09:02 Gabapentin (Neurontin) 300 mg THREE TIMES A DAY ORAL 11/24/18 09:00 12/18/18 08:59 11/26/18 09:02 Guaifenesin/ Codeine Phosphate (Robitussin with codeine) 5 ml Q6H PRN ORAL For Cough 11/24/18 13:45 12/24/18 13:44 11/25/18 04:53 Heparin Sodium (Porcine) (Heparin 5000 units/ml) 5,000 units EVERY 12 HOURS SUBQ 11/23/18 21:00 12/17/18 20:59 11/26/18 09:03 Methylprednisolone (Medrol) 30 mg DAILY ORAL 11/26/18 09:00 12/26/18 08:59 11/26/18 09:01 Thiamine HCl (Vitamin B1) 100 mg DAILY ORAL 11/24/18 09:00 12/18/18 08:59 11/26/18 09:02 Abhijit Morris MD Nov 26, 2018 10:22
[2018-11-26 12:00] VITALS: BP 128/76
--- NOTE | 2018-11-26 14:03 | Infectious Diseases Prog Note ---
Assessment/Plan Assessment/Plan A: Sepsis cultures negative Pneumonia Hypercapnic respiratory failure Anemia PVD R eight rib fracture Acute renal failure improved Leukocytosis P; ,F/U CBC & CXR UA & Urine culture Subjective ROS Limited/Unobtainable: No Constitutional: Reports: no symptoms, other - feels slighty better Respiratory: Reports: productive cough, other - decreased Cardiovascular: Reports: no symptoms Gastrointestinal/Abdominal: Reports: no symptoms Genitourinary: Reports: dysuria, other - mild Musculoskeletal: Reports: no symptoms Allergies: Coded Allergies: No Known Allergies (Unverified , 10/17/18) Objective Vital Signs Last 24 Hour Vital Signs Date Time Temp Pulse Resp B/P (MAP) Pulse Ox O2 Delivery O2 Flow Rate FiO2 11/26/18 12:00 98.7 96 18 128/76 (93) 95 11/26/18 09:01 87 126/72 11/26/18 09:00 Nasal Cannula 4.0 11/26/18 08:00 98.9 87 19 126/72 (90) 95 11/26/18 08:00 114 11/26/18 04:00 97.5 87 18 119/80 (93) 98 11/26/18 04:00 75 11/26/18 00:00 98.6 94 18 130/85 (100) 99 11/26/18 00:00 72 11/25/18 21:42 97 Nasal Cannula 3.0 32 11/25/18 21:42 Nasal Cannula 3.0 32 11/25/18 21:00 Nasal Cannula 4.0 11/25/18 20:00 107 11/25/18 20:00 97.9 100 20 139/79 (99) 95 11/25/18 16:49 106 120/89 11/25/18 16:00 97.3 106 20 120/89 (99) 99 11/25/18 16:00 105 Height (Feet): 5 Height (Inches): 4.00 Weight (Pounds): 116 General Appearance: cachetic HEENT: mucous membranes moist Respiratory/Chest: lungs clear Cardiovascular: normal rate Abdomen: soft, non tender Extremities: no edema Neurologic/Psychiatric: alert, responsive Laboratory Tests Test 11/26/18 07:05 White Blood Count 15.0 K/UL (4.8-10.8) H Red Blood Count 3.84 M/UL (4.70-6.10) L Hemoglobin 10.3 G/DL (14.2-18.0) L Hematocrit 34.7 % (42.0-52.0) L Mean Corpuscular Volume 90 FL (80-99) Mean Corpuscular Hemoglobin 26.9 PG (27.0-31.0) L Mean Corpuscular Hemoglobin Concent 29.8 G/DL (32.0-36.0) L Red Cell Distribution Width 18.2 % (11.6-14.8) H Platelet Count 203 K/UL (150-450) Mean Platelet Volume 6.6 FL (6.5-10.1) Neutrophils (%) (Auto) % (45.0-75.0) Lymphocytes (%) (Auto) % (20.0-45.0) Monocytes (%) (Auto) % (1.0-10.0) Eosinophils (%) (Auto) % (0.0-3.0) Basophils (%) (Auto) % (0.0-2.0) Differential Total Cells Counted 100 Neutrophils % (Manual) 85 % (45-75) H Lymphocytes % (Manual) 8 % (20-45) L Monocytes % (Manual) 7 % (1-10) Eosinophils % (Manual) 0 % (0-3) Basophils % (Manual) 0 % (0-2) Band Neutrophils 0 % (0-8) Platelet Estimate Adequate Platelet Morphology Normal Hypochromasia 1+ Anisocytosis 1+ Sodium Level 142 MMOL/L (136-145) Potassium Level 4.9 MMOL/L (3.5-5.1) Chloride Level 95 MMOL/L (98-107) L Carbon Dioxide Level 46 MMOL/L (21-32) *H Blood Urea Nitrogen 22 mg/dL (7-18) H Creatinine 0.8 MG/DL (0.55-1.30) Estimat Glomerular Filtration Rate mL/min (>60) Glucose Level 105 MG/DL (74-106) Calcium Level 9.0 MG/DL (8.5-10.1) Magnesium Level 2.0 MG/DL (1.8-2.4) Total Bilirubin 0.4 MG/DL (0.2-1.0) Aspartate Amino Transf (AST/SGOT) 19 U/L (15-37) Alanine Aminotransferase (ALT/SGPT) 24 U/L (12-78) Alkaline Phosphatase 53 U/L (46-116) Pro-B-Type Natriuretic Peptide 2480 pg/mL (0-125) H Total Protein 6.6 G/DL (6.4-8.2) Albumin 3.0 G/DL (3.4-5.0) L Globulin 3.6 g/dL Albumin/Globulin Ratio 0.8 (1.0-2.7) L Current Medications Medications (Trade) Dose Ordered Sig/Aimee Route PRN Reason Start Time Stop Time Status Last Admin Dose Admin Chlorhexidine Gluconate (Mayra-Hex 2%) 1 applic DAILY@2000 TOPIC 11/23/18 20:00 12/19/18 19:59 11/25/18 20:55 Diltiazem HCl (Cardizem CD) 180 mg BID ORAL 11/24/18 18:00 12/24/18 17:59 11/26/18 09:01 Famotidine (Pepcid) 20 mg BID ORAL 11/24/18 09:00 12/18/18 08:59 11/26/18 09:02 Folic Acid (Folate) 1 mg DAILY ORAL 11/24/18 09:00 12/18/18 08:59 11/26/18 09:01 Furosemide (Lasix) 40 mg DAILY ORAL 11/24/18 14:00 12/24/18 13:59 11/26/18 09:02 Gabapentin (Neurontin) 300 mg THREE TIMES A DAY ORAL 11/24/18 09:00 12/18/18 08:59 11/26/18 11:50 Guaifenesin/ Codeine Phosphate (Robitussin with codeine) 5 ml Q6H PRN ORAL For Cough 11/24/18 13:45 12/24/18 13:44 11/25/18 04:53 Heparin Sodium (Porcine) (Heparin 5000 units/ml) 5,000 units EVERY 12 HOURS SUBQ 11/23/18 21:00 12/17/18 20:59 11/26/18 09:03 Methylprednisolone (Medrol) 30 mg DAILY ORAL 11/26/18 09:00 12/26/18 08:59 11/26/18 09:01 Thiamine HCl (Vitamin B1) 100 mg DAILY ORAL 11/24/18 09:00 12/18/18 08:59 11/26/18 09:02 Jez Espinoza MD Nov 26, 2018 14:03
[2018-11-26 15:00] LABS: APPEARANCE,URINE CLEAR; BILIRUBIN, URINE NEGATIVE (NEGATIVE); COLOR,URINE PALE YELLOW; GLUCOSE, URINE (UA) NEGATIVE (NEGATIVE); KETONES,URINE NEGATIVE (NEGATIVE); LEUKOCYTE ESTERASE ,URINE 1+ (NEGATIVE); NITRITE,URINE NEGATIVE (NEGATIVE); PH,URINE 8 (4.5-8.0); PROTEIN,URINE NEGATIVE (NEGATIVE); UROBILINOGEN,URINE NORMAL MG/DL (0.0-1.0)
[2018-11-26 16:00] VITALS: BP 137/76
--- NOTE | 2018-11-26 17:49 | General Progress Note ---
Assessment/Plan Problem List: (1) PNA (pneumonia) ICD Codes: J18.9 - Pneumonia, unspecified organism SNOMED: 984934555 (2) Opiate dependence, continuous ICD Codes: F11.20 - Opioid dependence, uncomplicated SNOMED: 533250492 (3) CHF (congestive heart failure) ICD Codes: I50.9 - CHF (congestive heart failure) SNOMED: 11298942 (4) Tachycardia ICD Codes: R00.0 - Tachycardia, unspecified SNOMED: 7505569 (5) HTN (hypertension) ICD Codes: I10 - Essential (primary) hypertension SNOMED: 28864399 (6) COPD exacerbation ICD Codes: J44.1 - Chronic obstructive pulmonary disease with (acute) exacerbation SNOMED: 812542252, 076691431 (7) Respiratory distress ICD Codes: R06.03 - Acute respiratory distress SNOMED: 309475384 (8) Severe sepsis ICD Codes: A41.9 - Sepsis, unspecified organism; R65.20 - Severe sepsis without septic shock SNOMED: 67461636 Status: stable Assessment/Plan cont current rx resp care o2 steroids abx monitor cxr and abg prn diuresis monitor cxr/labs Subjective ROS Limited/Unobtainable: No Constitutional: Reports: malaise, weakness HEENT: Reports: no symptoms Cardiovascular: Reports: no symptoms Respiratory: Reports: cough, shortness of breath Gastrointestinal/Abdominal: Reports: no symptoms Genitourinary: Reports: no symptoms Neurologic/Psychiatric: Reports: anxiety Endocrine: Reports: no symptoms Hematologic/Lymphatic: Reports: no symptoms Allergies: Coded Allergies: No Known Allergies (Unverified , 10/17/18) All Systems: reviewed and negative except above Subjective no events. decreased sob. on nasal cannula 4l. denies chest pain no fevers. labs noted Objective Last 24 Hour Vital Signs Date Time Temp Pulse Resp B/P (MAP) Pulse Ox O2 Delivery O2 Flow Rate FiO2 11/26/18 17:18 108 137/82 11/26/18 16:00 98.5 108 19 137/76 (96) 100 11/26/18 12:00 98.7 96 18 128/76 (93) 95 11/26/18 12:00 104 11/26/18 09:01 87 126/72 11/26/18 09:00 Nasal Cannula 4.0 11/26/18 08:00 98.9 87 19 126/72 (90) 95 11/26/18 08:00 114 11/26/18 04:00 97.5 87 18 119/80 (93) 98 11/26/18 04:00 75 11/26/18 00:00 98.6 94 18 130/85 (100) 99 11/26/18 00:00 72 11/25/18 21:42 97 Nasal Cannula 3.0 32 11/25/18 21:42 Nasal Cannula 3.0 32 11/25/18 21:00 Nasal Cannula 4.0 11/25/18 20:00 107 11/25/18 20:00 97.9 100 20 139/79 (99) 95 Intake and Output 11/25/18 11/26/18 19:00 07:00 Intake Total 720 ml 360 ml Output Total 1150 ml 1200 ml Balance -430 ml -840 ml Intake Oral 720 ml 360 ml Output Urine Total 1150 ml 1200 ml # Bowel Movements 4 1 Laboratory Tests 11/26/18 07:05: White Blood Count 15.0H, Red Blood Count 3.84L, Hemoglobin 10.3L, Hematocrit 34.7L, Mean Corpuscular Volume 90, Mean Corpuscular Hemoglobin 26.9L, Mean Corpuscular Hemoglobin Concent 29.8L, Red Cell Distribution Width 18.2H, Platelet Count 203, Mean Platelet Volume 6.6, Neutrophils (%) (Auto) , Lymphocytes (%) (Auto) , Monocytes (%) (Auto) , Eosinophils (%) (Auto) , Basophils (%) (Auto) , Differential Total Cells Counted 100, Neutrophils % ( Manual) 85H, Lymphocytes % (Manual) 8L, Monocytes % (Manual) 7, Eosinophils % ( Manual) 0, Basophils % (Manual) 0, Band Neutrophils 0, Platelet Estimate Adequate, Platelet Morphology Normal, Hypochromasia 1+, Anisocytosis 1+, Sodium Level 142, Potassium Level 4.9, Chloride Level 95L, Carbon Dioxide Level 46*H, Blood Urea Nitrogen 22H, Creatinine 0.8, Estimat Glomerular Filtration Rate , Glucose Level 105, Calcium Level 9.0, Magnesium Level 2.0, Total Bilirubin 0.4, Aspartate Amino Transf (AST/SGOT) 19, Alanine Aminotransferase (ALT/SGPT) 24, Alkaline Phosphatase 53, Pro-B-Type Natriuretic Peptide 2480H, Total Protein 6.6 , Albumin 3.0L, Globulin 3.6, Albumin/Globulin Ratio 0.8L 11/26/18 14:17: Urine Color Pale yellow, Urine Appearance Clear, Urine pH 8, Urine Specific [place] 1.010, Urine Protein Negative, Urine Glucose (UA) Negative, Urine Ketones Negative, Urine Blood Negative, Urine Nitrite Negative, Urine Bilirubin Negative, Urine Urobilinogen Normal, Urine Leukocyte Esterase 1+H, Urine RBC 0- 2H, Urine WBC 2-4, Urine Squamous Epithelial Cells Occasional, Urine Bacteria Few Height (Feet): 5 Height (Inches): 4.00 Weight (Pounds): 116 Objective General Appearance: WD/WN, alert Neck: supple Cardiovascular: normal rate Respiratory/Chest: chest wall non-tender, lungs clear, normal breath sounds Abdomen: normal bowel sounds, non tender, soft, no organomegaly Edema: no edema noted Arm (L), no edema noted Arm (R), no edema noted Leg (L), no edema noted Leg (R), no edema noted Pedal (L), no edema noted Pedal (R), no edema noted 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
[2018-11-26 20:00] VITALS: BP 127/88
[2018-11-26] MEDS: Dyna-Hex 2% Top Sol 2oz TOPIC SCH (20:00)
[2018-11-27] VITALS: BP 107/65
[2018-11-27 04:00] VITALS: BP 132/91
--- NOTE | 2018-11-27 07:43 | Pulmonology Progress Note ---
Assessment/Plan Assessment/Plan ASSESSMENT: COPD exacerbation respiratory failure; resolved shock UTI possible pneumonia. Has small left effusion; too small to tap. PLAN: Antibiotics per ID. Continue daily Lasix Continue o2; now on 4L/min o2 DVT and stress ulcer prophylaxis. High WBC noted today Also increase in serum bicarb Subjective Interval Events: WBC increased; also has high serum bicarb; on diamox Constitutional: Reports: no symptoms HEENT: Repors: no symptoms Respiratory: Reports: no symptoms Cardiovascular: Reports: no symptoms Gastrointestinal/Abdominal: Reports: no symptoms Genitourinary: Reports: no symptoms Allergies: Coded Allergies: No Known Allergies (Unverified , 10/17/18) Objective Last 24 Hour Vital Signs Date Time Temp Pulse Resp B/P (MAP) Pulse Ox O2 Delivery O2 Flow Rate FiO2 11/27/18 04:00 71 11/27/18 04:00 97.5 101 22 132/91 (105) 93 11/27/18 00:00 74 11/27/18 00:00 97.9 87 24 107/65 (79) 100 11/26/18 22:45 98 Nasal Cannula 3.0 32 11/26/18 22:45 Nasal Cannula 3.0 32 11/26/18 21:00 Nasal Cannula 4.0 11/26/18 20:00 91 11/26/18 20:00 97.9 112 21 127/88 (101) 96 11/26/18 19:27 92 11/26/18 17:35 Nasal Cannula 3.0 32 11/26/18 17:35 98 Nasal Cannula 3.0 32 11/26/18 17:18 108 137/82 11/26/18 16:00 98.5 108 19 137/76 (96) 100 11/26/18 12:00 98.7 96 18 128/76 (93) 95 11/26/18 12:00 104 11/26/18 09:01 87 126/72 11/26/18 09:00 Nasal Cannula 4.0 11/26/18 08:00 98.9 87 19 126/72 (90) 95 11/26/18 08:00 114 Intake and Output 11/26/18 11/27/18 19:00 07:00 Intake Total 580 ml 600 ml Output Total 300 ml 1600 ml Balance 280 ml -1000 ml Intake Oral 580 ml 600 ml Output Urine Total 300 ml 1600 ml # Voids 3 # Bowel Movements 3 1 General Appearance: no acute distress HEENT: normocephalic Respiratory/Chest: chest wall non-tender, lungs clear Cardiovascular: normal peripheral pulses, normal rate Abdomen: normal bowel sounds Microbiology Date/Time Source Procedure Growth Status 11/26/18 14:17 Urine,Clean Catch Urine Culture - Preliminary NO GROWTH Resulted Laboratory Tests 11/26/18 14:17: Urine Color Pale yellow, Urine Appearance Clear, Urine pH 8, Urine Specific [place] 1.010, Urine Protein Negative, Urine Glucose (UA) Negative, Urine Ketones Negative, Urine Blood Negative, Urine Nitrite Negative, Urine Bilirubin Negative, Urine Urobilinogen Normal, Urine Leukocyte Esterase 1+H, Urine RBC 0- 2H, Urine WBC 2-4, Urine Squamous Epithelial Cells Occasional, Urine Bacteria Few Current Medications Medications (Trade) Dose Ordered Sig/Aimee Route PRN Reason Start Time Stop Time Status Last Admin Dose Admin Acetazolamide (Diamox) 250 mg TWICE A DAY ORAL 11/26/18 23:00 12/26/18 22:59 11/26/18 23:25 Chlorhexidine Gluconate (Mayra-Hex 2%) 1 applic DAILY@1999 TOPIC 11/23/18 20:00 12/19/18 19:59 11/25/18 20:55 Diltiazem HCl (Cardizem CD) 180 mg BID ORAL 11/24/18 18:00 12/24/18 17:59 11/26/18 17:18 Famotidine (Pepcid) 20 mg BID ORAL 11/24/18 09:00 12/18/18 08:59 11/26/18 17:15 Folic Acid (Folate) 1 mg DAILY ORAL 11/24/18 09:00 12/18/18 08:59 11/26/18 09:01 Gabapentin (Neurontin) 300 mg THREE TIMES A DAY ORAL 11/24/18 09:00 12/18/18 08:59 11/26/18 17:15 Guaifenesin/ Codeine Phosphate (Robitussin with codeine) 5 ml Q6H PRN ORAL For Cough 11/24/18 13:45 12/24/18 13:44 11/25/18 04:53 Heparin Sodium (Porcine) (Heparin 5000 units/ml) 5,000 units EVERY 12 HOURS SUBQ 11/23/18 21:00 12/17/18 20:59 11/26/18 21:12 Prednisone (predniSONE) 20 mg DAILY ORAL 11/27/18 09:00 12/27/18 08:59 Thiamine HCl (Vitamin B1) 100 mg DAILY ORAL 11/24/18 09:00 12/18/18 08:59 11/26/18 09:02 Abhijit Morris MD Nov 27, 2018 07:43
[2018-11-27 08:00] VITALS: BP 97/69
--- NOTE | 2018-11-27 08:22 | General Progress Note ---
Assessment/Plan Problem List: (1) PNA (pneumonia) ICD Codes: J18.9 - Pneumonia, unspecified organism SNOMED: 067195506 (2) Opiate dependence, continuous ICD Codes: F11.20 - Opioid dependence, uncomplicated SNOMED: 791786342 (3) CHF (congestive heart failure) ICD Codes: I50.9 - CHF (congestive heart failure) SNOMED: 49548247 (4) Tachycardia ICD Codes: R00.0 - Tachycardia, unspecified SNOMED: 4123965 (5) HTN (hypertension) ICD Codes: I10 - Essential (primary) hypertension SNOMED: 92005542 (6) COPD exacerbation ICD Codes: J44.1 - Chronic obstructive pulmonary disease with (acute) exacerbation SNOMED: 978068890, 900854071 (7) Respiratory distress ICD Codes: R06.03 - Acute respiratory distress SNOMED: 361829517 (8) Severe sepsis ICD Codes: A41.9 - Sepsis, unspecified organism; R65.20 - Severe sepsis without septic shock SNOMED: 44028528 Status: stable, progressing Assessment/Plan cont current rx resp care o2 acetazolomide for resp drive abx monitor cxr and abg prn diuresis monitor cxr/labs Subjective ROS Limited/Unobtainable: No Constitutional: Reports: malaise, weakness HEENT: Reports: no symptoms Cardiovascular: Reports: no symptoms Respiratory: Reports: cough, shortness of breath Gastrointestinal/Abdominal: Reports: no symptoms Genitourinary: Reports: no symptoms Neurologic/Psychiatric: Reports: no symptoms Endocrine: Reports: no symptoms Hematologic/Lymphatic: Reports: no symptoms Allergies: Coded Allergies: No Known Allergies (Unverified , 10/17/18) All Systems: reviewed and negative except above Subjective no events. decreased sob. on nasal cannula 4l. no change. refused abg Objective Last 24 Hour Vital Signs Date Time Temp Pulse Resp B/P (MAP) Pulse Ox O2 Delivery O2 Flow Rate FiO2 11/27/18 04:00 71 11/27/18 04:00 97.5 101 22 132/91 (105) 93 11/27/18 00:00 74 11/27/18 00:00 97.9 87 24 107/65 (79) 100 11/26/18 22:45 98 Nasal Cannula 3.0 32 11/26/18 22:45 Nasal Cannula 3.0 32 11/26/18 21:00 Nasal Cannula 4.0 11/26/18 20:00 91 11/26/18 20:00 97.9 112 21 127/88 (101) 96 11/26/18 19:27 92 11/26/18 17:35 Nasal Cannula 3.0 32 11/26/18 17:35 98 Nasal Cannula 3.0 32 11/26/18 17:18 108 137/82 11/26/18 16:00 98.5 108 19 137/76 (96) 100 11/26/18 12:00 98.7 96 18 128/76 (93) 95 11/26/18 12:00 104 11/26/18 09:01 87 126/72 11/26/18 09:00 Nasal Cannula 4.0 Intake and Output 11/26/18 11/27/18 19:00 07:00 Intake Total 580 ml 600 ml Output Total 300 ml 1600 ml Balance 280 ml -1000 ml Intake Oral 580 ml 600 ml Output Urine Total 300 ml 1600 ml # Voids 3 # Bowel Movements 3 1 Laboratory Tests 11/26/18 14:17: Urine Color Pale yellow, Urine Appearance Clear, Urine pH 8, Urine Specific [place] 1.010, Urine Protein Negative, Urine Glucose (UA) Negative, Urine Ketones Negative, Urine Blood Negative, Urine Nitrite Negative, Urine Bilirubin Negative, Urine Urobilinogen Normal, Urine Leukocyte Esterase 1+H, Urine RBC 0- 2H, Urine WBC 2-4, Urine Squamous Epithelial Cells Occasional, Urine Bacteria Few Height (Feet): 5 Height (Inches): 4.00 Weight (Pounds): 107 Objective General Appearance: WD/WN, alert Neck: supple Cardiovascular: normal rate Respiratory/Chest: chest wall non-tender, lungs clear, normal breath sounds Abdomen: normal bowel sounds, non tender, soft, no organomegaly Edema: no edema noted Arm (L), no edema noted Arm (R), no edema noted Leg (L), no edema noted Leg (R), no edema noted Pedal (L), no edema noted Pedal (R), no edema noted 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
[2018-11-27 08:33] LABS: HEMATOCRIT 39.9 % (42.0-52.0); HEMOGLOBIN 11.6 G/DL (14.2-18.0); MEAN CORPUSCULAR VOLUME 91 FL (80-99); PLATELET COUNT 206 K/UL (150-450); RED BLOOD COUNT 4.39 M/UL (4.70-6.10); RED CELL DISTRIBUTION WIDTH 18.1 % (11.6-14.8); WHITE BLOOD COUNT 14.8 K/UL (4.8-10.8)
[2018-11-27] MEDS: dilTIAZem HCl CD 180mg cap ORAL SCH ×2 (09:44→18:22)
[2018-11-27] MEDS: Thiamine 100mg tab ORAL SCH (09:45)
[2018-11-27] MEDS: Heparin 5000 units/ml inj SUBQ SCH ×2 (09:51→21:00)
--- NOTE | 2018-11-27 10:48 | Infectious Diseases Prog Note ---
Assessment/Plan Assessment/Plan antibiotics : zosyn A 1. pneumonia s/p rx 2. UTI s/p rx 3. CHF 4. hypertension 5. COPD 7. leucocytosis improving likely secondary to steroids P 1. observe off antibiotics Subjective Constitutional: Denies: fever, chills Respiratory: Reports: shortness of breath - decreased, dry cough - decreased Gastrointestinal/Abdominal: Reports: diarrhea - decreased; Denies: nausea, vomiting Musculoskeletal: Denies: pain Allergies: Coded Allergies: No Known Allergies (Unverified , 10/17/18) Objective Vital Signs Last 24 Hour Vital Signs Date Time Temp Pulse Resp B/P (MAP) Pulse Ox O2 Delivery O2 Flow Rate FiO2 11/27/18 09:44 90 97/69 11/27/18 09:33 96 Nasal Cannula 3.0 32 11/27/18 09:33 Nasal Cannula 3.0 32 11/27/18 08:00 98.2 90 20 97/69 (78) 93 11/27/18 04:00 71 11/27/18 04:00 97.5 101 22 132/91 (105) 93 11/27/18 00:00 74 11/27/18 00:00 97.9 87 24 107/65 (79) 100 11/26/18 22:45 98 Nasal Cannula 3.0 32 11/26/18 22:45 Nasal Cannula 3.0 32 11/26/18 21:00 Nasal Cannula 4.0 11/26/18 20:00 91 11/26/18 20:00 97.9 112 21 127/88 (101) 96 11/26/18 19:27 92 11/26/18 17:35 Nasal Cannula 3.0 32 11/26/18 17:35 98 Nasal Cannula 3.0 32 11/26/18 17:18 108 137/82 11/26/18 16:00 98.5 108 19 137/76 (96) 100 11/26/18 12:00 98.7 96 18 128/76 (93) 95 11/26/18 12:00 104 Height (Feet): 5 Height (Inches): 4.00 Weight (Pounds): 107 Respiratory/Chest: lungs clear Cardiovascular: normal rate, regular rhythm, no gallop/murmur Abdomen: soft, non tender Extremities: no edema Microbiology Date/Time Source Procedure Growth Status 11/26/18 14:17 Urine,Clean Catch Urine Culture - Preliminary NO GROWTH Resulted Laboratory Tests Test 11/26/18 14:17 11/27/18 08:13 Urine Color Pale yellow Urine Appearance Clear Urine pH 8 (4.5-8.0) Urine Specific [place] 1.010 (1.005-1.035) Urine Protein Negative (NEGATIVE) Urine Glucose (UA) Negative (NEGATIVE) Urine Ketones Negative (NEGATIVE) Urine Blood Negative (NEGATIVE) Urine Nitrite Negative (NEGATIVE) Urine Bilirubin Negative (NEGATIVE) Urine Urobilinogen Normal MG/DL (0.0-1.0) Urine Leukocyte Esterase 1+ (NEGATIVE) H Urine RBC 0-2 /HPF (0 - 0) H Urine WBC 2-4 /HPF (0 - 0) Urine Squamous Epithelial Cells Occasional /LPF Urine Bacteria Few /HPF (NONE) White Blood Count 14.8 K/UL (4.8-10.8) H Red Blood Count 4.39 M/UL (4.70-6.10) L Hemoglobin 11.6 G/DL (14.2-18.0) L Hematocrit 39.9 % (42.0-52.0) L Mean Corpuscular Volume 91 FL (80-99) Mean Corpuscular Hemoglobin 26.5 PG (27.0-31.0) L Mean Corpuscular Hemoglobin Concent 29.1 G/DL (32.0-36.0) L Red Cell Distribution Width 18.1 % (11.6-14.8) H Platelet Count 206 K/UL (150-450) Mean Platelet Volume 6.4 FL (6.5-10.1) L Neutrophils (%) (Auto) % (45.0-75.0) Lymphocytes (%) (Auto) % (20.0-45.0) Monocytes (%) (Auto) % (1.0-10.0) Eosinophils (%) (Auto) % (0.0-3.0) Basophils (%) (Auto) % (0.0-2.0) Neutrophils % (Manual) Pending Lymphocytes % (Manual) Pending Platelet Estimate Pending Platelet Morphology Pending Current Medications Medications (Trade) Dose Ordered Sig/Aimee Route PRN Reason Start Time Stop Time Status Last Admin Dose Admin Acetazolamide (Diamox) 250 mg TWICE A DAY ORAL 11/26/18 23:00 12/26/18 22:59 11/26/18 23:25 Chlorhexidine Gluconate (Mayra-Hex 2%) 1 applic DAILY@2000 TOPIC 11/23/18 20:00 12/19/18 19:59 11/25/18 20:55 Diltiazem HCl (Cardizem CD) 180 mg BID ORAL 11/24/18 18:00 12/24/18 17:59 11/27/18 09:44 Famotidine (Pepcid) 20 mg BID ORAL 11/24/18 09:00 12/18/18 08:59 11/27/18 09:45 Folic Acid (Folate) 1 mg DAILY ORAL 11/24/18 09:00 12/18/18 08:59 11/27/18 09:44 Gabapentin (Neurontin) 300 mg THREE TIMES A DAY ORAL 11/24/18 09:00 12/18/18 08:59 11/27/18 09:45 Guaifenesin/ Codeine Phosphate (Robitussin with codeine) 5 ml Q6H PRN ORAL For Cough 11/24/18 13:45 12/24/18 13:44 11/25/18 04:53 Heparin Sodium (Porcine) (Heparin 5000 units/ml) 5,000 units EVERY 12 HOURS SUBQ 11/23/18 21:00 12/17/18 20:59 11/27/18 09:51 Prednisone (predniSONE) 20 mg DAILY ORAL 11/27/18 09:00 12/27/18 08:59 11/27/18 09:45 Thiamine HCl (Vitamin B1) 100 mg DAILY ORAL 11/24/18 09:00 12/18/18 08:59 11/27/18 09:45 Jessy Zabala MD Nov 27, 2018 10:48
[2018-11-27 12:00] VITALS: BP 133/60
[2018-11-27 16:00] VITALS: BP 126/79
[2018-11-27 20:00] VITALS: BP 126/70
[2018-11-27] MEDS: Dyna-Hex 2% Top Sol 2oz TOPIC SCH (20:00)
[2018-11-28] VITALS: BP 155/77
[2018-11-28 04:00] VITALS: BP 125/70
[2018-11-28 08:00] VITALS: BP 108/66
--- NOTE | 2018-11-28 08:50 | General Progress Note ---
Assessment/Plan Problem List: (1) PNA (pneumonia) ICD Codes: J18.9 - Pneumonia, unspecified organism SNOMED: 769636609 (2) Opiate dependence, continuous ICD Codes: F11.20 - Opioid dependence, uncomplicated SNOMED: 660920811 (3) CHF (congestive heart failure) ICD Codes: I50.9 - CHF (congestive heart failure) SNOMED: 14139880 (4) Tachycardia ICD Codes: R00.0 - Tachycardia, unspecified SNOMED: 7480862 (5) HTN (hypertension) ICD Codes: I10 - Essential (primary) hypertension SNOMED: 87970746 (6) COPD exacerbation ICD Codes: J44.1 - Chronic obstructive pulmonary disease with (acute) exacerbation SNOMED: 806099526, 840405523 (7) Respiratory distress ICD Codes: R06.03 - Acute respiratory distress SNOMED: 793449152 (8) Severe sepsis ICD Codes: A41.9 - Sepsis, unspecified organism; R65.20 - Severe sepsis without septic shock SNOMED: 79700448 Status: stable, progressing Assessment/Plan cont current rx resp care o2 acetazolomide for resp drive abx monitor cxr and abg prn diuresis monitor cxr/labs Subjective ROS Limited/Unobtainable: No Constitutional: Reports: malaise, weakness HEENT: Reports: no symptoms Cardiovascular: Reports: no symptoms Respiratory: Reports: cough, shortness of breath Gastrointestinal/Abdominal: Reports: no symptoms Genitourinary: Reports: no symptoms Neurologic/Psychiatric: Reports: anxiety Endocrine: Reports: no symptoms Hematologic/Lymphatic: Reports: no symptoms Allergies: Coded Allergies: No Known Allergies (Unverified , 10/17/18) All Systems: reviewed and negative except above Subjective no events. decreased sob. on nasal cannula. refusing bipap Objective Last 24 Hour Vital Signs Date Time Temp Pulse Resp B/P (MAP) Pulse Ox O2 Delivery O2 Flow Rate FiO2 11/28/18 07:26 83 11/28/18 04:00 97.0 82 20 125/70 (88) 98 11/28/18 04:00 85 11/28/18 00:00 86 11/28/18 00:00 106 11/28/18 00:00 98.0 91 20 155/77 (103) 92 11/27/18 21:00 Nasal Cannula 4.0 11/27/18 20:00 106 11/27/18 20:00 97.5 97 20 126/70 (88) 95 11/27/18 18:22 95 126/79 11/27/18 16:00 95 11/27/18 16:00 98.2 89 20 126/79 (95) 94 11/27/18 12:00 98.2 89 20 133/60 (84) 96 11/27/18 12:00 83 11/27/18 09:44 90 97/69 11/27/18 09:33 96 Nasal Cannula 3.0 32 11/27/18 09:33 Nasal Cannula 3.0 32 11/27/18 09:00 Nasal Cannula 4.0 Intake and Output 11/27/18 11/28/18 19:00 07:00 Intake Total 1000 ml Output Total 900 ml Balance 100 ml Intake Oral 1000 ml Output Urine Total 900 ml # Voids 4 # Bowel Movements 2 Height (Feet): 5 Height (Inches): 4.00 Weight (Pounds): 107 Objective General Appearance: WD/WN, alert Neck: supple Cardiovascular: normal rate Respiratory/Chest: chest wall non-tender, lungs clear, normal breath sounds Abdomen: normal bowel sounds, non tender, soft, no organomegaly Edema: no edema noted Arm (L), no edema noted Arm (R), no edema noted Leg (L), no edema noted Leg (R), no edema noted Pedal (L), no edema noted Pedal (R), no edema noted Generalized Neurologic: asp developer II-XII grossly normal, alert Varun Stewart MD Nov 28, 2018 08:50
[2018-11-28] MEDS ORDERED: Aspirin Baby 81mg ORAL SCH (09:00)
[2018-11-28] MEDS: dilTIAZem HCl CD 180mg cap ORAL SCH ×2 (09:38→09:59)
[2018-11-28] MEDS: Thiamine 100mg tab ORAL SCH (09:38)
[2018-11-28] MEDS: Heparin 5000 units/ml inj SUBQ SCH (09:44)
--- NOTE | 2018-11-28 10:49 | Infectious Diseases Prog Note ---
Assessment/Plan Assessment/Plan antibiotics : none A 1. pneumonia s/p rx 2. UTI s/p rx 3. CHF 4. hypertension 5. COPD 7. leucocytosis improving likely secondary to steroids P 1. observe off antibiotics Subjective Constitutional: Denies: fever, chills Respiratory: Reports: shortness of breath - decreased, dry cough - decreased Gastrointestinal/Abdominal: Reports: diarrhea; Denies: nausea, vomiting Musculoskeletal: Reports: pain Allergies: Coded Allergies: No Known Allergies (Unverified , 10/17/18) Objective Vital Signs Last 24 Hour Vital Signs Date Time Temp Pulse Resp B/P (MAP) Pulse Ox O2 Delivery O2 Flow Rate FiO2 11/28/18 09:59 97 108/72 11/28/18 09:00 Nasal Cannula 4.0 11/28/18 08:00 97.9 87 20 108/66 (80) 99 11/28/18 07:26 83 11/28/18 04:00 97.0 82 20 125/70 (88) 98 11/28/18 04:00 85 11/28/18 00:00 86 11/28/18 00:00 106 11/28/18 00:00 98.0 91 20 155/77 (103) 92 11/27/18 21:00 Nasal Cannula 4.0 11/27/18 20:00 106 11/27/18 20:00 97.5 97 20 126/70 (88) 95 11/27/18 18:22 95 126/79 11/27/18 16:00 95 11/27/18 16:00 98.2 89 20 126/79 (95) 94 11/27/18 12:00 98.2 89 20 133/60 (84) 96 11/27/18 12:00 83 Height (Feet): 5 Height (Inches): 4.00 Weight (Pounds): 107 Respiratory/Chest: lungs clear Cardiovascular: normal rate, regular rhythm, no gallop/murmur Abdomen: soft, non tender Extremities: no edema Microbiology Date/Time Source Procedure Growth Status 11/26/18 14:17 Urine,Clean Catch Urine Culture - Preliminary NO GROWTH AFTER 24 HOURS Resulted Current Medications Medications (Trade) Dose Ordered Sig/Aimee Route PRN Reason Start Time Stop Time Status Last Admin Dose Admin Acetazolamide (Diamox) 250 mg TWICE A DAY ORAL 11/26/18 23:00 12/26/18 22:59 11/28/18 09:39 Aspirin (ASA) 81 mg DAILY ORAL 11/28/18 09:00 12/28/18 08:59 11/28/18 09:39 Chlorhexidine Gluconate (Mayra-Hex 2%) 1 applic DAILY@2000 TOPIC 11/23/18 20:00 12/19/18 19:59 11/25/18 20:55 Diltiazem HCl (Cardizem CD) 180 mg BID ORAL 11/24/18 18:00 12/24/18 17:59 11/28/18 09:59 Famotidine (Pepcid) 20 mg BID ORAL 11/24/18 09:00 12/18/18 08:59 11/28/18 09:38 Folic Acid (Folate) 1 mg DAILY ORAL 11/24/18 09:00 12/18/18 08:59 11/28/18 09:38 Gabapentin (Neurontin) 300 mg THREE TIMES A DAY ORAL 11/24/18 09:00 12/18/18 08:59 11/28/18 09:39 Guaifenesin/ Codeine Phosphate (Robitussin with codeine) 5 ml Q6H PRN ORAL For Cough 11/24/18 13:45 12/24/18 13:44 11/25/18 04:53 Heparin Sodium (Porcine) (Heparin 5000 units/ml) 5,000 units EVERY 12 HOURS SUBQ 11/23/18 21:00 12/17/18 20:59 11/28/18 09:44 Prednisone (predniSONE) 20 mg DAILY ORAL 11/27/18 09:00 12/27/18 08:59 11/28/18 09:39 Thiamine HCl (Vitamin B1) 100 mg DAILY ORAL 11/24/18 09:00 12/18/18 08:59 11/28/18 09:38 Jessy Zabala MD Nov 28, 2018 10:49
--- NOTE | 2018-11-28 11:26 | Pulmonology Progress Note ---
Assessment/Plan Assessment/Plan ASSESSMENT: COPD exacerbation respiratory failure; resolved shock UTI possible pneumonia. Has small left effusion; too small to tap. PLAN: Antibiotics per ID. Continue daily Lasix Continue o2; now on 4L/min o2 DVT and stress ulcer prophylaxis. High WBC noted yesterday; slightly better today Subjective Interval Events: None new Constitutional: Reports: no symptoms HEENT: Repors: no symptoms Respiratory: Reports: no symptoms Cardiovascular: Reports: no symptoms Gastrointestinal/Abdominal: Reports: no symptoms Genitourinary: Reports: no symptoms Neurologic: Reports: no symptoms Psychiatric: Reports: no symptoms Allergies: Coded Allergies: No Known Allergies (Unverified , 10/17/18) Objective Last 24 Hour Vital Signs Date Time Temp Pulse Resp B/P (MAP) Pulse Ox O2 Delivery O2 Flow Rate FiO2 11/28/18 09:59 97 108/72 11/28/18 09:00 Nasal Cannula 4.0 11/28/18 08:00 97.9 87 20 108/66 (80) 99 11/28/18 07:26 83 11/28/18 04:00 97.0 82 20 125/70 (88) 98 11/28/18 04:00 85 11/28/18 00:00 86 11/28/18 00:00 106 11/28/18 00:00 98.0 91 20 155/77 (103) 92 11/27/18 21:00 Nasal Cannula 4.0 11/27/18 20:00 106 11/27/18 20:00 97.5 97 20 126/70 (88) 95 11/27/18 18:22 95 126/79 11/27/18 16:00 95 11/27/18 16:00 98.2 89 20 126/79 (95) 94 11/27/18 12:00 98.2 89 20 133/60 (84) 96 11/27/18 12:00 83 Intake and Output 11/27/18 11/28/18 19:00 07:00 Intake Total 1000 ml Output Total 900 ml Balance 100 ml Intake Oral 1000 ml Output Urine Total 900 ml # Voids 4 # Bowel Movements 2 General Appearance: no acute distress HEENT: normocephalic Respiratory/Chest: chest wall non-tender, lungs clear Cardiovascular: normal peripheral pulses, normal rate Abdomen: normal bowel sounds, soft, non tender Microbiology Date/Time Source Procedure Growth Status 11/26/18 14:17 Urine,Clean Catch Urine Culture - Preliminary NO GROWTH AFTER 24 HOURS Resulted Current Medications Medications (Trade) Dose Ordered Sig/Aimee Route PRN Reason Start Time Stop Time Status Last Admin Dose Admin Acetazolamide (Diamox) 250 mg TWICE A DAY ORAL 11/26/18 23:00 12/26/18 22:59 11/28/18 09:39 Aspirin (ASA) 81 mg DAILY ORAL 11/28/18 09:00 12/28/18 08:59 11/28/18 09:39 Chlorhexidine Gluconate (Mayra-Hex 2%) 1 applic DAILY@1999 TOPIC 11/23/18 20:00 12/19/18 19:59 11/25/18 20:55 Diltiazem HCl (Cardizem CD) 180 mg BID ORAL 11/24/18 18:00 12/24/18 17:59 11/28/18 09:59 Famotidine (Pepcid) 20 mg BID ORAL 11/24/18 09:00 12/18/18 08:59 11/28/18 09:38 Folic Acid (Folate) 1 mg DAILY ORAL 11/24/18 09:00 12/18/18 08:59 11/28/18 09:38 Gabapentin (Neurontin) 300 mg THREE TIMES A DAY ORAL 11/24/18 09:00 12/18/18 08:59 11/28/18 09:39 Guaifenesin/ Codeine Phosphate (Robitussin with codeine) 5 ml Q6H PRN ORAL For Cough 11/24/18 13:45 12/24/18 13:44 11/25/18 04:53 Heparin Sodium (Porcine) (Heparin 5000 units/ml) 5,000 units EVERY 12 HOURS SUBQ 11/23/18 21:00 12/17/18 20:59 11/28/18 09:44 Prednisone (predniSONE) 20 mg DAILY ORAL 11/27/18 09:00 12/27/18 08:59 11/28/18 09:39 Thiamine HCl (Vitamin B1) 100 mg DAILY ORAL 11/24/18 09:00 12/18/18 08:59 11/28/18 09:38 Abhijit Morris MD Nov 28, 2018 11:26
[2018-11-28 12:00] VITALS: BP 118/73
[2018-11-28] MEDS ORDERED: HEPARIN SO5000 UNIT2 SUBQ (13:38)
[2018-11-28] MEDS ORDERED: FAMOTIDINE20 MG ORAL (13:38)
[2018-11-28] MEDS ORDERED: ACETAZOLAMIDE125 MG ORAL (13:39)
[2018-11-28] MEDS ORDERED: PREDNISONE10 M2 PO (13:40)
[2018-11-29] MEDS ORDERED: GUAIFENESIN-CO118 M1 ORAL (19:43)
[2018-11-29] MEDS ORDERED: ASPIRIN81 MG ORAL (19:43)
--- NOTE | 2018-11-30 08:30 | Discharge Summary ---
Discharge Summary Discharge Summary _ DATE OF ADMISSION: 11/17/2018 DATE OF DISCHARGE: 11/28/2018 DISCHARGED BY: REASON FOR ADMISSION: 73 years old male with past medical history of COPD, congestive heart failure, chronic respiratory failure ,heroin and opiate abuse and dependency, paroxysmal atrial fibrillation, hypertension, severe pulmonary hypertension, dementia, presented from the [facility] facility with shortness of breath. Patient was confused and unable to provide any history. Upon evaluation patient was hypoxic and hypotensive. Vital signs revealed tachycardia and tachypnea. Laboratory workup revealed no leukocytosis ,hemoglobin 8.5 ,hematocrit 28.7, stable renal parameters and electrolytes. Glucose 92. Stable LFT. Albumin 2.9. ABG revealed evidence of severe respiratory acidosis with PCO2 of 68 and pH 7.22. Troponin - 0.025. EKG revealed sinus tachycardia , no acute ischemic changes. Urinalysis revealed +3 leukocyte esterase and pyuria. Chest x-ray showed development of left basilar airspace opacity, possibly representing pneumonia. Development of small left pleural effusion. In emergency department patient initially started on IV hydration . Blood pressure did not respond to fluid challenge and patient required pressor. Subsequently central line was placed for pressor and patient started on dopamine. Patient started on BiPAP. Patient pancultured and started on empiric antibiotics. Patient was admitted to ICU for further management CONSULTANTS: sports editor pulmonary Dr. Morris ID specialist Dr. Zabala HOSPITAL COURSE: Patient admitted to ICU and continued on Dopamine , titrated to keep mean arterial blood pressure above 65. Hemodynamic status was closely monitored. Chemical Packager, anglesmith helper, infectious disease specialists closely followed. Recent echocardiogram, done in October 2018 ,revealed preserved ejection fraction of 60% with no evidence of left ventricular hypertrophy and right ventricular systolic pressure of 86, consistent with severe pulmonary hypertension. C Patient was able to be weaned from dopamine on . Blood pressure was closely monitored. Rubber Compounder closely followed. Patient follow-up with a ABG. Fraction of inspired oxygen was titrated to keep pulse oximetry above 90%. Pulmonary toilet with bronchodilator provided. Patient was able to be weaned from the BiPAP and transition to Venturi mask. Antibiotics provided for treatment of pneumonia. Patient started on steroids. DVT prophylaxis provided. Left pleural effusion was too small to tap. Patient was started on Diamox. Patient received single dose of Lasix, since chest x-ray was suggestive of fluid overload. IV fluids stopped. Cardiorenal parameters , volumes and electrolytes were closely monitored. Steroids changed to oral prior to discharge. Prior to discharge pulse oximetry was stable on oxygen 4 L via nasal cannula. Patient with history of paroxysmal atrial fibrillation. Patient remained in sinus rhythm. Cardizem was continued. Repeated troponin was negative. Patient was continued on antiplatelet therapy with aspirin. Patient was continued with the maintenance dose of Lasix with close monitoring of volumes and cardiorenal parameters. GI prophylaxis provided. Blood cultures were negative. Rapid influenza screen test was negative. Urine cultures were negative. Sputum culture was negative. Follow-up chest x-ray revealed no significant difference. Completed treatment for urinary tract infection and healthcare acquired pneumonia. Leukocytosis was noted , likely reactive secondary to steroids. No fevers. Infectious disease specialist recommended to observe patient off antibiotics. Patient clinically stabilized and was ready for transfer back to [facility] facility for continuation of care opiate dependency FINAL DIAGNOSES: Sepsis Shock Acute hypoxemic hypercapnic respiratory failure on chronic respiratory insufficiency Acute on chronic respiratory acidosis Acute renal failure, likely due to shock/ hypovolemia Acute on chronic diastolic congestive heart failure Severe pulmonary hypertension COPD exacerbation Healthcare acquired pneumonia , s/p treatment UTI , s/p treatment Right-sided heart failure Opiate dependency History of heroin abuse Moderate protein calorie malnutrition DISCHARGE MEDICATIONS: See Medication Reconciliation list. DISCHARGE INSTRUCTIONS: Patient was discharged to the [facility] facility. Follow up with medical doctor at the facility. I have been assigned to dictate discharge summary for this account. I was not involved in the patient's management. Kathy Yin NP Nov 30, 2018 08:30
--- NOTE | 2018-11-30 16:51 | Diagnostic Imaging Report ---
Indication: Dyspnea Comparison: 11/23/2018 A single view chest radiograph was obtained. Findings: Basal atelectasis demonstrated. Cardiomegaly is present. Pulmonary vascularity is within normal limits. Bones are osteopenic. IMPRESSION: Basilar atelectasis. Cardiomegaly
--- NOTE | 2018-12-01 13:45 | Progress Note ---
DATE: 11/20/2018 CARDIOLOGY PROGRESS NOTE SUBJECTIVE: The patient still feels weak and complaining of shortness of breath. OBJECTIVE: VITAL SIGNS: Blood pressure 123/78, pulse 91, and respirations 24. He is on BiPAP support. LUNGS: Diminished breath sounds. Scattered rhonchi. HEART: Regular rhythm and rate. Normal S1, S2. ABDOMEN: Soft. EXTREMITIES: Trace edema. LABORATORY DATA: White count 4 and hemoglobin 8.6. Sodium 141, potassium 4.5, bicarbonate 30, BUN 12, and creatinine 0.8. Albumin 2.9. ABG pending today. IMPRESSION: 1. Acute respiratory failure. 2. Acute on chronic respiratory acidosis. 3. Healthcare-acquired pneumonia. 4. Paroxysmal bronchospasm. 5. Secondary sinus tachycardia. PLAN: 1. Steroid taper. 2. Antimicrobials. 3. Respiratory hygiene. 4. Bronchodilators 5. Symptom-guided pain control. 6. Recheck radiograph of the chest. 7. Trend natriuretic peptide assay. Justus Grewal M.D. DR: BRIDGET JOB#: [id number] CC:
--- NOTE | 2018-12-01 13:45 | Progress Note ---
DATE: 11/22/2018 CARDIOLOGY PROGRESS NOTE SUBJECTIVE: Still with congestion and episodes of respiratory distress and tachycardias. No chest pain. Received furosemide early this morning and with a good response. The patient is not comfortable using BiPAP. OBJECTIVE: VITAL SIGNS: Blood pressure 125/65, pulse 70, respirations 21, and afebrile. LUNGS: Diminished breath sounds. Rhonchi. CARDIAC: Regular rhythm and rate. Normal S1, S2. ABDOMEN: Soft. EXTREMITIES: Trace edema. Stasis derm changes of the lower extremities. LABORATORY DATA: No new labs today. IMPRESSION: 1. Respiratory failure. 2. Acute on chronic respiratory acidosis. 3. Acute on chronic diastolic congestive heart failure. 4. Healthcare-acquired pneumonia. 5. Chronic obstructive pulmonary disease. 6. Paroxysmal bronchospasm. 7. History of heroin abuse, now methadone dependence. PLAN: 1. Antibiotics. 2. Periodic diuresis. 3. Respiratory hygiene. 4. Steroid taper. 5. Oxygenation. 6. Monitor acid base parameters. 7. Continue cardiac monitoring. 8. Maintain diltiazem for suppression of atrial tachyarrhythmias. 9. Remains tenuous and high risk. Justus Grewal M.D. DR: UMER JOB#: [id number] CC:
--- NOTE | 2018-12-01 13:45 | Progress Note ---
DATE: 11/21/2018 CARDIOLOGY PROGRESS NOTE SUBJECTIVE: The patient refuses BiPAP. He is on a Ventimask. He still feels poorly. He is concerned that he is not getting better. He is agitated at times. OBJECTIVE: VITAL SIGNS: Blood pressure 143/93, pulse 90, respirations 20, and afebrile. LUNGS: Coarse breath sounds. Scattered rhonchi. HEART: Regular rhythm and rate. Normal S1, S2. ABDOMEN: Soft. EXTREMITIES: Stasis derm changes. LABORATORY DATA: White count 6.1 and hemoglobin 8.9. Albumin 2.7. BUN 16 and creatinine 0.9. Potassium 4.7. Natriuretic peptide is 1578. ABG - 7.31, 56, and 69. Magnesium 1.7. IMPRESSION: 1. Acute on chronic respiratory acidosis, improved over the past 2 days, but still significantly abnormal. 2. Acute on chronic diastolic congestive heart failure, worsening with rising natriuretic peptide assay level. 3. Respiratory failure. 4. Healthcare-acquired pneumonia. 5. Severe chronic obstructive pulmonary disease. 6. Paroxysmal bronchospasm. 7. Moderate protein-calorie malnutrition. 8. Hypomagnesemia. PLAN: 1. Antimicrobials. 2. Respiratory hygiene. 3. IV magnesium. 4. Diuresis. 5. Steroid taper. 6. Oxygenation. Justus Grewal M.D. DR: NABILA JOB#: [id number] CC:
--- NOTE | 2018-12-01 14:00 | Progress Note ---
DATE: 11/27/2018 CARDIOLOGY PROGRESS NOTE SUBJECTIVE: Less shortness of breath. She does not want any ABG due to pain. PHYSICAL EXAMINATION: VITAL SIGNS: Blood pressure 132/90, heart rate 74 to 101, respiratory rate 20 to 24, afebrile. LUNGS: Good breath sounds. Few rhonchi. HEART: Regular rhythm and rate. Normal S1, S2. ABDOMEN: Soft. No edema. LABORATORY DATA: White count 14.8 and hemoglobin 11.6. IMPRESSION: 1. Chronic obstructive pulmonary disease exacerbation. 2. Healthcare acquired pneumonia. 3. Compensatory metabolic alkalosis. 4. Acute on chronic respiratory acidosis. 5. Acute on chronic diastolic congestive heart failure. 6. Heroin dependence. PLAN: 1. Acetazolamide to correct metabolic alkalosis, maintenance diuretic dosing. 2. Steroid taper. 3. Bronchodilators. 4. Vitamin supplements. 5. Respiratory hygiene. Justus Grewal M.D. DR: Umair JOB#: [id number] CC:
--- NOTE | 2018-12-01 14:00 | Progress Note ---
DATE: 11/28/2018 CARDIOLOGY PROGRESS NOTE: SUBJECTIVE: The patient feels better. Less shortness of breath. He refused labs. PHYSICAL EXAMINATION: VITAL SIGNS: Blood pressure 125/70, pulse 82, respirations 20, no fevers. HEENT: Temporal wasting. Oropharynx clear with no thrush. LUNGS: With few rhonchi. CARDIAC: Regular rhythm and rate. Normal S1, S2. ABDOMEN: Soft. EXTREMITIES: Trace edema. IMPRESSION: Improved. PLAN: Stable for subacute facility. Cardiovascular regimen reviewed as well as other distress medications reconciled for [facility] facility care. Justus Grewal M.D. DR: PEGGY JOB#: [id number] CC:
--- NOTE | 2018-12-01 14:00 | Progress Note ---
DATE: 11/24/2018 CARDIOLOGY PROGRESS NOTE SUBJECTIVE: The patient had episodes of wheezing and congestion with significant cough. Overall, he is less short of breath. Mobilization has been limited. He is on 4 liters nasal cannula. He continues to require around the clock bronchodilators. OBJECTIVE: VITAL SIGNS: Blood pressure 129/81, pulse 77, respirations 20, and afebrile. LUNGS: Diminished breath sounds. Scattered rhonchi. Few wheezes. CARDIAC: Regular rhythm and rate. Normal S1 and S2. A 1/6 systolic murmur at apex. ABDOMEN: Soft. EXTREMITIES: With trace edema. LABORATORY DATA: Potassium 3.8, BUN 22, creatinine 1, and magnesium 1.7. Albumin 2.9. IMPRESSION: 1. Hypomagnesemia. 2. Chronic obstructive pulmonary disease exacerbation. 3. Healthcare acquired pneumonia. 4. Acute on chronic respiratory acidosis. 5. Right-sided heart failure. 6. Pulmonary hypertension. 7. Moderate to severe protein-calorie malnutrition. PLAN: 1. Steroid taper antimicrobials. 2. Respiratory hygienes with bronchodilators. 3. Nutritional support. 4. Avoid positive fluid balance. 5. Mobilize. 6. DVT and stress ulcer prophylaxis. Justus Grewal M.D. DR: CAPRI JOB#: [id number] CC:
== END 2018-11-28 14:50 | DRG 720 ==
LOC: EDBD 13:15 → EMR 13:46 → EDUNIT# 13:46 → ICU 14:25 → EDBEDREQ 14:33 → 2W 11-20 11:47 → 2E 11-23 18:45
PROC: 06HM33Z Insertion of Infusion Device into Right Femoral Vein, Percutaneous Approach (ICD-10-PCS; principal; 2018-11-17)
DX: A41.9 Sepsis, unspecified organism (principal); R65.21 Severe sepsis with septic shock; N17.9 Acute kidney failure, unspecified; I50.33 Acute on chronic diastolic (congestive) heart failure; J18.9 Pneumonia, unspecified organism; I27.20 Pulmonary hypertension, unspecified; J96.02 Acute respiratory failure with hypercapnia; J96.01 Acute respiratory failure with hypoxia; I13.0 Hypertensive heart and chronic kidney disease with heart failure and stage 1 through stage 4 chronic kidney disease, or unspecified chronic kidney disease; E44.1 Mild protein-calorie malnutrition; I48.0 Paroxysmal atrial fibrillation; J44.0 Chronic obstructive pulmonary disease with (acute) lower respiratory infection; J44.1 Chronic obstructive pulmonary disease with (acute) exacerbation; F03.90 Unspecified dementia, unspecified severity, without behavioral disturbance, psychotic disturbance, mood disturbance, and anxiety; N18.9 Chronic kidney disease, unspecified; N39.0 Urinary tract infection, site not specified; I73.9 Peripheral vascular disease, unspecified; Z68.1 Body mass index [BMI] 19.9 or less, adult; F32.9 Major depressive disorder, single episode, unspecified; F11.20 Opioid dependence, uncomplicated
CPT/HCPCS: 36415; 36600; 71045; 80053; 81003; 82550; 82553; 82803; 83605; 83690; 83735; 83880; 84484; 85007; 85025; 86710; 87040; 87070; 87081; 87086; 87205; 93005; 94640; 94664; 94760; 96361; 96365; 96375; 99291; J7620

== ENCOUNTER 2018-11-29 18:07 | Inpatient (IN) | payer MEDICARE, OTHER ==
[2018-11-29] VITALS (8 sets, daily range): BP systolic 79–152; BP diastolic 40–131
[~2018-11-29] VITALS: Ht 170.2 cm; Wt 42.2 kg
[~2018-11-29 18:07] MED LIST changes: +ACETAMINOPHEN325 M1 ORAL; +ACETAZOLAMIDE125 MG ORAL; +CARDIZEM LA180 M1 PO; +DUONEB 0.5-3(2.53 ML HHN; +FAMOTIDINE20 MG ORAL; +GABAPENTIN300 MG ORAL; +HEPARIN SO5000 UNIT2 SUBQ; +IPRATROPIU0.2 MG/1 M HHN; +LEXAPRO20 MG ORAL; +LISINOPRIL30 MG ORAL; +MIRTAZAPINE30 MG ORAL; +PREDNISONE10 M2 PO; +PREDNISONE10 MG ORAL
--- NOTE | 2018-11-29 18:07 | NUR ---
ED Nurse Note: pt was brought in by ra [facility] from snf c/o respiratory distress. pt has agonal breathing upon arrival,pt is non responsive. pt is connected to ambubag.per ems, pt was found unresponsive on snf. ermd on bedside. respiratory therapist on bedside. blood drawn and sent to lab. will continue to monitor.
--- NOTE | 2018-11-29 18:26 | NUR ---
ED Nurse Note: ermd and respiratory therapist on bedsideinsetive the et tube. 20mg of etomidate given and 50mg rocuronium pushed as ordered by rosetta. et tube place in 22 on the lip using size 7 et tube and connected to ambubag via 15L/min oxygen.
--- NOTE | 2018-11-29 18:44 | NUR ---
ED Nurse Note: pt was connected to mechanical ventilator by respiratory therapist. with the setting of ac 16, tidal volume 450, peep 5 100% oxygen.
--- NOTE | 2018-11-29 18:50 | NUR ---
ED Nurse Note: ovalles catheter inserted, urine sent to lab.
[2018-11-29 18:55] LABS: HEMATOCRIT 39.1 % (42.0-52.0); HEMOGLOBIN 11.5 G/DL (14.2-18.0); MEAN CORPUSCULAR VOLUME 92 FL (80-99); PLATELET COUNT 220 K/UL (150-450); RED BLOOD COUNT 4.27 M/UL (4.70-6.10); RED CELL DISTRIBUTION WIDTH 18.7 % (11.6-14.8); WHITE BLOOD COUNT 21.5 K/UL (4.8-10.8)
[2018-11-29 19:08] LABS: APPEARANCE,URINE CLEAR; BILIRUBIN, URINE NEGATIVE (NEGATIVE); COLOR,URINE PALE YELLOW; GLUCOSE, URINE (UA) NEGATIVE (NEGATIVE); KETONES,URINE NEGATIVE (NEGATIVE); LEUKOCYTE ESTERASE ,URINE 2+ (NEGATIVE); NITRITE,URINE NEGATIVE (NEGATIVE); PH,URINE 6.5 (4.5-8.0); PROTEIN,URINE NEGATIVE (NEGATIVE); UROBILINOGEN,URINE NORMAL MG/DL (0.0-1.0)
[2018-11-29 19:11] LABS: ANION GAP 5 mmol/L (5-15); BLOOD UREA NITROGEN 39 mg/dL (7-18); CALCIUM 9.2 MG/DL (8.5-10.1); CARBON DIOXIDE 37 MMOL/L (21-32); CHLORIDE 96 MMOL/L (98-107); CREATININE 1.1 MG/DL (0.55-1.30); POTASSIUM 4.6 MMOL/L (3.5-5.1); SODIUM 137 MMOL/L (136-145)
--- NOTE | 2018-11-29 19:15 | NUR ---
ED Nurse Note: pt temp 92.9F rectal, bear hugger placed on pt.
--- NOTE | 2018-11-29 19:17 | NUR ---
HAND-OFF: Report given to Walter JUAREZ.
--- NOTE | 2018-11-29 19:18 | NUR ---
ED Nurse Note: Received Pt and report from day shift. Pt is unreponse and incubated. RT is on bedside for breating treatment. Knowing Pt's temp is going down, will attemp hot blanket as soon.
[2018-11-29] MEDS: Ipratropium 0.02% Inh Soln 2.5ml UD HHN SCH ×3 (19:23→19:55)
[2018-11-29] MEDS: Albuterol ud Inhalation HHN SCH ×3 (19:23→19:55)
[2018-11-29 19:24] LABS: ALANINE AMINOTRANSFERASE 66 U/L (12-78); ALBUMIN 3.6 G/DL (3.4-5.0); ALBUMIN/GLOBULIN RATIO 0.9 (1.0-2.7); ALKALINE PHOSPHATASE 78 U/L (46-116); ASPARTATE AMINO TRANSFERASE 53 U/L (15-37); BILIRUBIN,TOTAL 0.3 MG/DL (0.2-1.0); CKMB 1.9 NG/ML (0.0-3.6); CREATINE KINASE 35 U/L (26-308)
[2018-11-29] MEDS ORDERED: ASPIRIN81 MG ORAL (19:43)
[2018-11-29] MEDS ORDERED: GUAIFENESIN-CO118 M1 ORAL (19:43)
[2018-11-29] MEDS ORDERED: Zemuron 50mg/5ml Inj IV ONE (19:45)
[2018-11-29] MEDS ORDERED: Piperacillin/Tazobactam 3.375 GM in NS 110 ML IVPB ONE (19:45)
[2018-11-29] MEDS ORDERED: Etomidate 40mg/20ml Inj IV ONE (19:45)
[2018-11-29] MEDS ORDERED: Azithromycin 500 MG in NS 275 ML IV ONE (19:45)
--- NOTE | 2018-11-29 20:46 | NUR ---
ED Nurse Note: Pt is unresponse again, hold propofol as ERMD order.
--- NOTE | 2018-11-29 21:18 | Emergency Room Report ---
History of Present Illness General Chief Complaint: Dyspnea/Respdistress Source: Medical Record, EMS Present Illness HPI 73-year-old male presents ED for evaluation. Brought in by EMS from [facility]. Per nursing staff patient in respiratory distress today, lethargic. Patient per EMS and agonal breathing. Being bagged. Unable to provide any additional history at this time. Strip COPD. Just discharged from [facility] ago and sent to [facility] facility. No reported fevers chills. No other aggravating relieving factors. No other associated symptoms Allergies: Coded Allergies: No Known Allergies (Unverified , 10/17/18) Patient History Past Medical History: DM, HTN, asthma, COPD Pertinent Family History: none Social History: Denies: smoking, alcohol use, drug use Immunizations: UTD Reviewed Nursing Documentation: PMH: Agreed; PSxH: Agreed Nursing Documentation-PMH Hx Cardiac Problems: Yes Hx Hypertension: Yes Hx Pacemaker: No Hx Asthma: Yes Hx COPD: Yes Hx Diabetes: Yes Hx Cancer: No Hx Gastrointestinal Problems: No Hx Neurological Problems: Yes Hx Dizziness: Yes Review of Systems All Other Systems: limited Physical Exam Vital Signs Date Time Temp Pulse Resp B/P (MAP) Pulse Ox O2 Delivery O2 Flow Rate FiO2 11/29/18 18:07 106 17 107/43 100 Ambu-Bag 100 Sp02 EP Interpretation: reviewed, normal General Appearance: other - agonal breathing Head: normocephalic Eyes: bilateral eye normal inspection, bilateral eye PERRL ENT: normal ENT inspection Neck: normal inspection Respiratory: decreased breath sounds Cardiovascular #1: regular rate, rhythm, no edema Gastrointestinal: normal inspection Rectal: deferred Genitourinary: no CVA tenderness Musculoskeletal: normal inspection Neurologic: other - unresponsive Psychiatric: other - unresponsive Skin: normal inspection Lymphatic: normal inspection Procedures Critical Care Time Critical Care Time i. I feel this is a highly complex case requiring extensive working including EKG/Rhythm strip, Xray/CT/US, Blood/urine lab work, repeat exams while in ED, and administration of strong opiates/narcotics for pain control, admission to hospital or close patient follow up. Total time: 60 min bedside evaluation and treatment excludes procedures (EKG). Reason for critical care: respiratory distress Possible complications: hypotension, hypertension, VT, shock, arrhythmias, metabolic acidosis, end organ damage, respiratory failure. Interventions: intubation, central line, labs, IVFS, EKG, CXR, ABG, breathing treatments, antibitoics Course: She presenting with agonal breathing. History of COPD. Patient intubated. Emergent central line placed as patient did not have IV access. ABG shows significant hypercapnia. Nebulizer treatments started. Chest x-ray shows lower lobe infiltrate. Possible aspiration. Significant leukocytosis. Broad-spectrum antibiotics given. Consultations: nursing staff, EMS, family Performed by: Dr Morrison Tolerated well condition = critical j. because of unstable vital signs this patient had a condition that could potentially threaten life or limb. I feel this is a critical patient who required my full attention while patient was considered critical. Total Critical Care Time excluding procedures was greater than 60 minutes Central Line Central Line : Consent: Emergent Central Line Lumen: triple Maximal Sterile Barrier Tech: yes cap, yes mask; no sterile gown; yes sterile gloves; no large sterile sheet; yes hand hygiene, yes chlorhexidine prep No Max Barrier Tech Because: emergency insertion Central Line Postion: femoral (L) Complications: none Central Line Post Position: sutured, good blood return Attempts: One Patient Tolerated: Well Complications: None Intubation Intubation : Consent: Emergent Intubation Method: orotracheal Tube Size (cm): 7.0 Medications: Etomidate, Rocuronium Breath Sounds after Intubation: equal Intubation Complications: no complications Post Intubation Xray: Yes Attempts: One Patient Tolerated: Well Complications: None Medical Decision Making Diagnostic Impression: Primary Impression: COPD (chronic obstructive pulmonary disease) Qualified Codes: J44.9 - Chronic obstructive pulmonary disease, unspecified Additional Impression: Respiratory failure Qualified Codes: J96.02 - Acute respiratory failure with hypercapnia ER Course Hospital Course 73-year-old M presenting to ED with agonal breathing. History of COPD Differential diagnoses include: Pneumonia, CHF exacerbation, pneumothorax, fluid overload Clinical course Patient placed on stretcher. I immediately intubated patient for airway protection. Patient has poor IV access. Emergent central line placed I ordered nebulizer treatments. I ordered labs, IV fluids, EKG, chest x-ray, blood cultures, UA. Labs - marked leukocytosis noted, hemoglobin/hematocrit stable, electrolytes okay, lactate okay, troponins negative EKG - sinus tachycardia, no acute ischemic changes interpreted by me CXR - RLL infiltrate, ET tube in place ABG shows significant hypercapnia Given IV fluids. Broad-spectrum antibiotics given. Given nebulizer treatments. Case discussed with Dr. Stewart/Uri and he agreed to the patient to his service for further care and support I feel this is a highly complex case requiring extensive working including EKG/ Rhythm strip, Xray/CT/US, Blood/urine lab work, repeat exams while in ED, and administration of strong opiates/narcotics for pain control, admission to hospital or close patient follow up. Diagnosis - COPD exacerbation, respiratory failure Patient admitted to ICU in critical condition Labs Test 11/29/18 18:20 11/29/18 18:45 11/29/18 19:05 White Blood Count 21.5 K/UL (4.8-10.8) Red Blood Count 4.27 M/UL (4.70-6.10) Hemoglobin 11.5 G/DL (14.2-18.0) Hematocrit 39.1 % (42.0-52.0) Mean Corpuscular Volume 92 FL (80-99) Mean Corpuscular Hemoglobin 26.9 PG (27.0-31.0) Mean Corpuscular Hemoglobin Concent 29.4 G/DL (32.0-36.0) Red Cell Distribution Width 18.7 % (11.6-14.8) Platelet Count 220 K/UL (150-450) Mean Platelet Volume 6.2 FL (6.5-10.1) Neutrophils (%) (Auto) % (45.0-75.0) Lymphocytes (%) (Auto) % (20.0-45.0) Monocytes (%) (Auto) % (1.0-10.0) Eosinophils (%) (Auto) % (0.0-3.0) Basophils (%) (Auto) % (0.0-2.0) Differential Total Cells Counted 100 Neutrophils % (Manual) 80 % (45-75) Lymphocytes % (Manual) 7 % (20-45) Monocytes % (Manual) 10 % (1-10) Eosinophils % (Manual) 1 % (0-3) Basophils % (Manual) 0 % (0-2) Band Neutrophils 2 % (0-8) Nucleated Red Blood Cells 1 /100 WBC Platelet Estimate Adequate Platelet Morphology Normal Polychromasia 1+ Hypochromasia 1+ Anisocytosis 2+ Sodium Level 137 MMOL/L (136-145) Potassium Level 4.6 MMOL/L (3.5-5.1) Chloride Level 96 MMOL/L (98-107) Carbon Dioxide Level 37 MMOL/L (21-32) Anion Gap 5 mmol/L (5-15) Blood Urea Nitrogen 39 mg/dL (7-18) Creatinine 1.1 MG/DL (0.55-1.30) Estimat Glomerular Filtration Rate mL/min (>60) Glucose Level 242 MG/DL (74-106) Lactic Acid Level 0.60 mmol/L (0.4-2.0) Calcium Level 9.2 MG/DL (8.5-10.1) Total Bilirubin 0.3 MG/DL (0.2-1.0) Aspartate Amino Transf (AST/SGOT) 53 U/L (15-37) Alanine Aminotransferase (ALT/SGPT) 66 U/L (12-78) Alkaline Phosphatase 78 U/L (46-116) Total Creatine Kinase 35 U/L (26-308) Creatine Kinase MB 1.9 NG/ML (0.0-3.6) Creatine Kinase MB Relative Index 5.4 Troponin I 0.013 ng/mL (0.000-0.056) Pro-B-Type Natriuretic Peptide 596 pg/mL (0-125) Total Protein 7.7 G/DL (6.4-8.2) Albumin 3.6 G/DL (3.4-5.0) Globulin 4.1 g/dL Albumin/Globulin Ratio 0.9 (1.0-2.7) Urine Color Pale yellow Urine Appearance Clear Urine pH 6.5 (4.5-8.0) Urine Specific [place] 1.010 (1.005-1.035) Urine Protein Negative (NEGATIVE) Urine Glucose (UA) Negative (NEGATIVE) Urine Ketones Negative (NEGATIVE) Urine Blood 2+ (NEGATIVE) Urine Nitrite Negative (NEGATIVE) Urine Bilirubin Negative (NEGATIVE) Urine Urobilinogen Normal MG/DL (0.0-1.0) Urine Leukocyte Esterase 2+ (NEGATIVE) Urine RBC 2-4 /HPF (0 - 0) Urine WBC 2-4 /HPF (0 - 0) Urine Squamous Epithelial Cells Occasional /LPF Urine Bacteria None /HPF (NONE) Arterial Blood pH 7.261 (7.350-7.450) Arterial Blood Partial Pressure CO2 68.2 mmHg (35.0-45.0) Arterial Blood Partial Pressure O2 271.9 mmHg (75.0-100.0) Arterial Blood HCO3 30.0 mmol/L (22.0-26.0) Arterial Blood Oxygen Saturation 99.4 % (95-100) Arterial Blood Base Excess 1.4 (-2-2) Cameron Test Positive EKG Diagnostic Results Rate: tachycardiac Rhythm: NSR ST Segments: no acute changes ASA given to the pt in ED: No Rhythm Strip Diag. Results EP Interpretation: yes Rhythm: NSR, no PVC's, no ectopy Chest X-Ray Diagnostic Results Chest X-Ray Diagnostic Results : Chest X-Ray Ordered: Yes # of Views/Limited/Complete: 1 View Indication: Shortness of Breath EP Interpretation: Yes Interpretation: no pneumothorax, no acute cardiopulmonary disease, other - RLL infiltrate Impression: Other - pneumonia Electronically Signed by: Electronically signed by Alvarado Morrison MD Last Vital Signs Date Time Temp Pulse Resp B/P (MAP) Pulse Ox O2 Delivery O2 Flow Rate FiO2 11/29/18 19:55 108 16 100 Mechanical Ventilator 50 11/29/18 19:19 107/43 Status: improved Disposition: ADMITTED INPATIENT Condition: Critical Referrals: Justus Grewal MD (PCP) Alvarado Morrison MD Nov 29, 2018 21:18
--- NOTE | 2018-11-29 22:00 | NUR ---
ED Nurse Note: Report given to ANN Bradshaw. Pt has no belongings.
--- NOTE | 2018-11-29 22:20 | NUR ---
ED Nurse Note: Urine sample sent to lab.
--- NOTE | 2018-11-29 22:25 | NUR ---
NURSE NOTES: Received report from Walter JUAREZ. Patient came from [facility] admitted from ER via rdola accompanied by RN and microbiology quality control technician under the care of Dr. Grewal with admitting diagnosis of Respiratory Distress. Patient restless, on ETT 7/22cm AC 16, TV 450 Fi02 100% peep of 5 satting 96%. Body assessment done will follow wound p/s protocol. Kimball draining with clear yellow urine. Temp 97.8 axillary. NPO. Left Femoral TLC intact. Contact isolation maintained and observed. Bed alarm on. Bed locked and in low position. Will call Dr. Grewal for admission orders. Patient with episode of pulling tubing, reality orientation provided, encouraged patient to verbalize needs,fears and feelings to staff not effective. will inform .
--- NOTE | 2018-11-29 22:49 | NUR ---
NURSE NOTES: Dr. Grewal Called back per MD repeat stat ABG and call him back for new orders noted and carried out. Carmella RT aware. Charge nurse aware.
[2018-11-29] MEDS ORDERED: Dyna-Hex 2% Top Sol 2oz TOPIC ONE (23:00)
--- NOTE | 2018-11-29 23:20 | NUR ---
NURSE NOTES: Called Dr. Grewal regarding The ABG result, waiting for MD to return call.
[2018-11-29] MEDS: Albuterol/Ipratropium 3ml neb HHN SCH (23:30)
--- NOTE | 2018-11-29 23:33 | NUR ---
NURSE NOTES: Dr. Grewal called back regarding ABG result per MD he will place an order, also D/C propofol. MD also aware of wound assessment will follow wound protocol. Charge nurse aware
[2018-11-30] VITALS (37 sets, daily range): BP systolic 79–157; BP diastolic 35–132
[2018-11-30] MEDS: Cefepime HCl 1 GM in D5W 55 ML IVPB SCH ×3 (00:01→21:05)
--- NOTE | 2018-11-30 02:33 | NUR ---
NURSE NOTES: Patient in bed resting with on and off episode of trying to pull out tubing, bilateral wrist restraint on, checked Q2 hour. Encouraged patient to verbalize needs, feras and feelings to staff. Will continue to monitor.
[2018-11-30] MEDS: Albuterol/Ipratropium 3ml neb HHN SCH ×6 (03:01→23:14)
--- NOTE | 2018-11-30 04:00 | NUR ---
NURSE NOTES: Tried to insert NGT 3x not successful, inserted OGT by Charge nurse will order stat KUB.
--- NOTE | 2018-11-30 04:50 | NUR ---
NURSE NOTES: KUB done will follow up result.
[2018-11-30] MEDS ORDERED: metroNIDAZOLE 500mg tab ORAL SCH (06:00)
--- NOTE | 2018-11-30 06:25 | NUR ---
NURSE NOTES: Called [facility] for the KUB result Per Darin he will fax the result. Charge nurse aware.
--- NOTE | 2018-11-30 06:28 | NUR ---
NURSE NOTES: Called patient son Jayden Kasper and left message regarding patient condition and admitted to ICU will endorsed to am nurse
--- NOTE | 2018-11-30 06:30 | NUR ---
NURSE NOTES: Marisel called from lab she will cancel the c-diff order due to stool not loose. Will endorse to next shift. charge nurse aware.
--- NOTE | 2018-11-30 07:11 | NUR ---
RESPIRATORY NOTE: received pt on current vent orders. pt slightly agitated when sxn. bilateral rhonchi heard upon auscultation with large amounts of secretions. pt is intubated with ETT 7.0 placed 22cm at the lip, secured via anchor fast., no redness or skin tears visible around mouth or facial area. vent alarms are set and audible and also plugged into the red outlet. ambu bag at bedside. will cont to monitor.
--- NOTE | 2018-11-30 07:20 | NUR ---
HAND-OFF: Report given to David JUAREZ.
--- NOTE | 2018-11-30 07:45 | NUR ---
NURSE NOTES: Received the patient from ANN Bradshaw. Patient is asleep, easily arousable, able to communicate by nodding. Orally intubated ETT 7, 22cm lip line. vent settings: AC 20, TV 550, FIO2 40%, PEEP 5, O2 sat 99%. No acute distress noted. ST with HR 110s noted on the monitor. Kimball cath intact and patent, draining yellow urine by gravity. Patient kept NPO. Left femoral TLC intact, running NS at 75ml/hr. dressing i/c/d. On bilateral soft wrist restraints. No skin breakdown noted. pulses present. active ROM. Bed in lowest position, locked, side rails upx3. Call light within reach. Bed alarm on. Will continue to monitor.
--- NOTE | 2018-11-30 08:25 | NUR ---
TOURIST CAMP ATTENDANTGUIDANCE ADVISER 73 Y/O MALE BIBA FROM [facility] TO [facility] CC:DYSPNEA/ RESPIRATORY DISTRESS SI:RESPIRATORY FAILURE VS: BP 107/43, P 106, T 92.9, RR 17, SpO2 100 on ETT AC 16, TV 450, PEEP 5.0, FiO2 100% WBC 21.5, RBC 4.27, Hgb 11.5, Hct 39.1, BUN 39, ABG: pH 7.149, pCO2 89.5, pO2 261.5, HCO3 30.4 IS:NS x1L IV ATROVENT 500mcg HHN PROVENTIL 5mg HHN ZEMURON 50mg IV AMIDATE 20mg IV AZITHROMYCIN 275 ml IV PIPERACILLIN SOD/TAZOBACTAM 110ml IVPB ADMITTED TO ICU DC PLAN: RETURN TO [facility]
[2018-11-30] MEDS: Solu-MEDROL 125mg Inj IVP SCH ×3 (08:37→22:10)
[2018-11-30] MEDS: Heparin 5000 units/ml inj SUBQ SCH ×2 (08:39→21:00)
--- NOTE | 2018-11-30 09:30 | NUR ---
NURSE NOTES: Patient was seen by wound care nurse. Dressings to bilateral heels and sacral intact, clean and dry. Patient tolerated well.
--- NOTE | 2018-11-30 10:36 | Diagnostic Imaging Report ---
Indication: NG tube placement Comparison: None Single view of the abdomen obtained Findings: NG tube is curled within the stomach. Kimball catheter also noted. Left femoral pins are noted indicative of previous injury. Partial visualization of a right dynamic hip screw. Osteoporosis noted. Left femoral central venous catheter demonstrated. The tip projects over the lower lumbar spine. IMPRESSION: NG tube in good position
--- NOTE | 2018-11-30 11:30 | NUR ---
NURSE NOTES: Patient is awake, attempted to pull out ETT. patient on bilateral soft restraints no skin breakdown noted.
--- NOTE | 2018-11-30 12:08 | NUR ---
*-* INSURANCE *-* NO INSURANCE INFORMATION IN THE BAR, CLINCIALS HAVE BEEN SENT TO: [facility] P- [phone] F- [phone]
--- NOTE | 2018-11-30 12:10 | NUR ---
RD ASSESSMENT & RECOMMENDATIONS SEE CARE ACTIVITY FOR COMPLETE ASSESSMENT DAILY ESTIMATED NEEDS: Needs based on Underweight, wound, critical care, HIV+, 48.6kg 30-35 kcals/kg 5241-6121 total kcals 1.25-2 g protein/kg 61-97 g total protein 25-30 mL/kg 6112-4160 total fluid mLs NUTRITION DIAGNOSIS: 1) Increased kcal and protein needs r/t wasting, HIV, underweight status, and wound healing as evidenced by moderate to severe generalized muscle and fat wasting, BMI 16.3, pt is 69% of [place] Body Weight, HIV+, pt w/ BL heels stage 1 wounds. 2) Swallowing difficulty r/t respiratory status as evidenced by pt is S/p oral intubation, NGT placed, npo at this time. ENTERAL NUTRITION RECOMMENDATIONS: Glucerna 1.2 @55ml/hr x24 hrs to provide 1320ml, 1584 kcal, 79g pro, 1063ml free H2O - Obtain GI access, initiate non oral feeds when medically appropriate. - Start Glucerna 1.2 @25ml/hr, advance as tolerated 10ml/hr q4-6 hrs to goal of 55ml/hr. - Flush per MD. HOB over 30 degrees ADDITIONAL RECOMMENDATIONS: * RECALIBRATE BED SCALE-> 7# difference from last adm 2 days ago * Monitor BG on solumedrol/ need for SSI * TF recs above as able * Wound care: Via NGT, add MIMI BID . .
--- NOTE | 2018-11-30 12:28 | Diagnostic Imaging Report ---
Indication: Dyspnea Comparison: 11/27/2018 A single view chest radiograph was obtained. Findings: Interstitial and vascular prominence demonstrated suggestive of CHF. Correlate clinically. Basilar parenchymal densities are also present and appear worse compared to the previous examination and may be reflective of worsening atelectasis. Endotracheal tube is in good position several centimeters above the simeon. IMPRESSION: Worsening CHF. Worsening basilar lung disease probably atelectasis though pneumonia is not excluded.
--- NOTE | 2018-11-30 12:49 | NUR ---
NURSE NOTES: KUB confirmed the placement of OGT. Informed Dr. Stewart. Per ladonna BRIGGS to start tube feeding.
--- NOTE | 2018-11-30 13:00 | NUR ---
NURSE NOTES: Tube feeding, Glucerna 1.2, started at 25ml/hr via OGT. HOB elevated.
[2018-11-30] MEDS: LORazepam Inj 2mg/ml 1ml IV PRN ×2 (13:07→21:06)
--- NOTE | 2018-11-30 13:10 | NUR ---
NURSE NOTES: Patient was agitated, prn ativan given. vss.
[2018-11-30] MEDS: metroNIDAZOLE 500mg tab NG SCH ×2 (13:34→22:10)
--- NOTE | 2018-11-30 15:04 | NUR ---
Social Service Note SW familiar with patient from previous admissions. Patient currently residing at [facility] 10/2018 . Patient with a history of substance abuse. Patient is currently orally intubated. On previous admission patient provided SW the contact number of his son Quintin Kasper III, . SW left a message. SW left a message also on the number listed on face sheet [phone]. During Oct admission patient informed GUNNER that caregiver Mrs. Ocampo has . Will continue to monitor and attempt to locate family. Patient is a full code.
--- NOTE | 2018-11-30 15:07 | NUR ---
NURSE NOTES: Patient asleep in bed comfortably, no acute distress noted.
--- NOTE | 2018-11-30 15:43 | NUR ---
NURSE NOTES:WOUND CARE NOTES:Pt presented on admission with small perianal ulcer (L)0.5cm x (W)0.4cm. DRy skin pigmentation to sacrum. No erythema or tenderness when palpated. BIlat heels are boggy with non-blanchable erythema . Pt denied tenderness when both heels minimally palpated. No other skin concerns noted. Recommendations: Apply Triad Paste to stef-anal ulcer with each perineal care. Apply Triad Paste to sacrum .Cover with Optifoam drsg. Change every 7 days and prn. Apply Cavilon Skin Barrier to both heels. Cover each heel with Optifoam. Change every 7 days and prn. Reposition at least every 2hours or as tolerated. Off-load heels with pillow.
--- NOTE | 2018-11-30 16:45 | History and Physical Report ---
DATE OF ADMISSION: 11/29/2018 CHIEF COMPLAINT: Respiratory failure. HISTORY OF PRESENT ILLNESS: The patient is a 73-year-old male. He has a history of severe COPD, who was recently hospitalized with severe COPD exacerbation. At that time, he received intravenous steroids, antibiotics, and respiratory treatments. He was gently diuresed. The patient was noncompliant with his nebulizer treatments and his BiPAP. He was eventually discharged to a [facility] facility. On the day of admission here, became progressively more short of breath. He was intubated in the emergency room because of impending respiratory failure and is now admitted to the intensive care unit. He is sedated and unable to provide any history. PAST MEDICAL HISTORY: As above. PAST SURGICAL HISTORY: None. CURRENT MEDICATIONS: Reconciled and reviewed. ALLERGIES: None. FAMILY HISTORY: None. SOCIAL HISTORY: The patient has a prior history of heavy smoking. No alcohol. No drugs. REVIEW OF SYSTEMS: Unobtainable. PHYSICAL EXAMINATION: VITAL SIGNS: Temperature 98, pulse 102, respirations 20, blood pressure 112/83. GENERAL: The patient is a chronically ill-appearing thin male, in no apparent distress. Currently orally intubated. NECK: Supple. HEART: Regular rate and rhythm. LUNGS: Significant for poor breath sounds with wheezes. ABDOMEN: Soft, nontender, nondistended. EXTREMITIES: Without clubbing or cyanosis. LABORATORY DATA: Showed white count of 21, hemoglobin 11, hematocrit 39. Sodium 137, potassium 4.6, BUN 39, creatinine 1.1, glucose 242. Troponin 0.013. Chest x-ray results are currently pending. ASSESSMENT: This is a 73-year-old male admitted with complaints of respiratory failure secondary to COPD exacerbation. PROBLEM LIST: 1. COPD exacerbation. 2. Respiratory failure. 3. Rule out pneumonia. 4. History of CHF. 5. History of noncompliance. PLAN: Intravenous steroids. Continue vent support. Respiratory treatments. Pulmonary consultation. Wean ventilator as able. DVT and stress ulcer prophylaxes. Monitor the patient's chest x-ray. The patient's status is currently critical and guarded. Varun Stewart M.D. DR: CAROLINE JOB#: [id number] CC:
--- NOTE | 2018-11-30 16:59 | NUR ---
NURSE NOTES: Patient was turned and repositioned. Pt was suctioned, oral care and ovalles care performed. Patient tolerated well. Patient asleep in bed. vss
--- NOTE | 2018-11-30 18:25 | NUR ---
NURSE NOTES: Patient is awake, able to follow commands, but compulsive and noncompliant, Patient on bilateral soft wrist restraints and tried to pull out ETT. Reapplied wrist restraints. No skin breakdown noted. pulses present.
--- NOTE | 2018-11-30 19:00 | Consultation ---
DATE OF CONSULTATION: 11/29/2018 CARDIOLOGY CRITICAL CARE NOTE CONSULTING PHYSICIAN: Justus Grewal M.D. REFERRING PHYSICIAN: Varun Stewart M.D. REASON FOR CONSULTATION: Respiratory failure. HISTORY OF PRESENT ILLNESS: This 73-year-old male, who was just discharged from this hospital following a prolonged hospital stay yesterday evening, returned to the hospital emergency room this morning with acute respiratory distress and agonal breathing. His severity required intubation and mechanical ventilation. The patient is admitted to the intensive care unit. PAST MEDICAL HISTORY: Reviewed. MEDICATIONS: Reviewed and reconciled. VITAL SIGNS: The patient's blood pressure 107/43, heart rate 106, respiratory rate 17, and afebrile. GENERAL: Orally intubated and mechanically ventilated. LUNGS: Bilateral rhonchi. HEART: Regular rhythm. Rapid rate. Normal S1, S2. ABDOMEN: Soft. EXTREMITIES: Trace edema. Stasis derm changes. Poor peripheral IV access. The patient with drastic pain. LABORATORY AND DIAGNOSTIC DATA: EKG with sinus tachycardia and nonspecific ST-T wave changes. White count 21 and hemoglobin 11.5. ABG 7.14, 89, 251. Sodium 137, potassium 4.6, bicarb 37, BUN 39, creatinine 1.1, glucose 242. Pro-natriuretic peptide 596. Lactic acid 0.6. Chest x-ray reveals a right lower lobe infiltrate and pulmonary venous congestion. IMPRESSION: 1. Critical and guarded. 2. Acute respiratory failure. 3. Aspiration. 4. Healthcare acquired pneumonia. 5. Acute on chronic diastolic congestive heart failure. 6. Sinus tachycardia. 7. Paroxysmal atrial ectopy. 8. COPD with exacerbation. 9. Heroin dependence, on methadone. 10. Acute on chronic respiratory acidosis. 11. Poor peripheral access. 12. Status post femoral line on the left. 13. Hyperglycemia. PLAN: 1. Critical care included the patient evaluation, discussion with nursing staff, adjustment of ventilator settings, and IV fluids. Plan, ventilator settings adjusted to increase tidal volume and rate and decrease oxygen delivery. 2. Hold diuresis. 3. Saline hydration. 4. DVT and stress ulcer prophylaxis. 5. Inhaled bronchodilators. 6. Sputum cultures. 7. Empiric antibiotics. 8. Discussed with primary care physician. Justus Grewal M.D. DR: NABILA JOB#: [id number] CC:
--- NOTE | 2018-11-30 19:20 | NUR ---
HAND-OFF: Report given to ANN Bradshaw.
--- NOTE | 2018-11-30 19:24 | NUR ---
RESPIRATORY NOTE: Received pt on AC 20, 550VT, 40%, PEEP +5. Pt intubated w/ ETT 7.0 @ 22cm lipline, secured by anchorfast. Pt is alert/awake, follows commands. Both hands on soft restraints to prevent pt from self-extubation. B/S mare. rhonchi, sxn small to moderate amounts of thick/thin, trujillo-yellow secretions. Vent plugged into red outlet, ambubag at bedside. Pt in no apparent distress at this time. Will continue to monitor pt.
--- NOTE | 2018-11-30 19:30 | Consultation ---
DATE OF CONSULTATION: 11/30/2018 PULMONARY CONSULTATION CONSULTING PHYSICIAN: Abhijit Morris M.D. REFERRING PHYSICIAN: Justus Grewal M.D. REASON FOR CONSULTATION: Respiratory failure. HISTORY OF PRESENT ILLNESS: This is a 73-year-old male who was brought into the hospital by paramedics. The patient is a group home resident. He was in respiratory distress and lethargic. He was initially bagged and then intubated by ER physician. The patient has a history of COPD and chest congestion. the hospital after having a prolonged course of hypoxemia. PAST MEDICAL HISTORY: Diabetes mellitus, hypertension, asthma, COPD. SOCIAL HISTORY: At this time, denies tobacco or alcohol use. No further history known. REVIEW OF SYSTEMS: Unreliable. Past history as discussed above. PAST SURGICAL HISTORY: None. PHYSICAL EXAMINATION: GENERAL: Reveals a intubated male. VITAL SIGNS: Blood pressure 107/70, heart rate is 104, respirations 20. He is afebrile. HEENT: Unremarkable. CHEST: Clear breath sounds bilaterally. HEART: Normal heart sounds. ABDOMEN: Soft. EXTREMITIES: No edema. LABORATORY AND DIAGNOSTIC DATA: Imaging studies per ER physician unremarkable. Lab testing shows white count 52674, hemoglobin 11. Creatinine 1.1 and glucose 242. ABG shows pH 7.38, pCO2 43, pO2 68. IMPRESSION: 1. Respiratory failure. 2. Exacerbation of COPD. 3. Diabetes mellitus. 4. Hypertension. DISCUSSION: Admitted to the hospital. Agree with broad-spectrum antibiotics and steroids. We will manage respirator. X-rays reviewed shows right lower lobe infiltrate suspicion of pneumonia. We will follow carefully. Thank you the consultation. Abhijit Morris M.D. DR: Jules JOB#: [id number] CC:
--- NOTE | 2018-11-30 19:30 | NUR ---
NURSE NOTES: Received the patient from ANN Robert. Patient is awake, alert Orally intubated ETT 7, 22cm lip line. vent settings: AC 20, TV 550, FIO2 40%, PEEP 5, O2 sat 98%. No acute distress noted. ST with HR 108 noted on the monitor. Kimball cath intact and patent, draining yellow urine by gravity. OGT intact running Glucerna 1.2 at 35cc/hr goal 55cc/hr, no residual. Left femoral TLC intact, running NS at 75ml/hr. On bilateral soft wrist restraints. No skin breakdown noted. pulses present. active ROM. Bed in lowest position, locked, side rails upx3. Call light within reach. Bed alarm on. Will continue to monitor.
[2018-11-30] MEDS: Dyna-Hex 2% Top Sol 2oz TOPIC SCH (19:52)
--- NOTE | 2018-11-30 21:30 | NUR ---
NURSE NOTES: CHG given. No s/s of acute distress noted.
--- NOTE | 2018-11-30 23:30 | NUR ---
NURSE NOTES: Patient in bed sleeping comfortably. No moaning no facial grimaces. Will continue plan of care.
--- NOTE | 2018-11-30 23:45 | Progress Note ---
DATE: 11/30/2018 CARDIOLOGY CRITICAL CARE NOTE SUBJECTIVE: The patient remains in the intensive care unit, orally intubated, mechanically ventilated. PHYSICAL EXAMINATION: VITAL SIGNS: Blood pressure marginal 91/62, heart rate 99, respiratory rate 20, no fever spikes noted. HEENT: ET tube. LUNGS: Bilateral rhonchi. HEART: Regular rhythm. Rapid rate. Normal S1 and S2. Monitor sinus with tachycardia with frequent ectopic. ABDOMEN: Soft. EXTREMITIES: Trace edema. Stasis dermatitis changes. LABORATORY AND DIAGNOSTIC DATA: X-ray of the abdomen today reveals NG-tube is fair position. There is femoral catheter in the left groin. There is a central venous access. New labs are pending. ABG, pH 7.38, 43, and 68. IMPRESSION: 1. Acute respiratory failure. 2. Aspiration pneumonia. 3. Acute on chronic respiratory acidosis. 4. Paroxysmal sinus tachycardia. 5. Premature atrial contractions. 6. Methadone dependence. 7. History of heroin abuse. 8. Critical and guarded. 9. Chronic diastolic congestive heart failure. 10. Severe pulmonary hypertension. PLAN: 1. Antimicrobials. 2. Ventilator support with wean. 3. Cautious hydration. 4. Monitor volume status and cardiorenal parameters. 5. Diuresis based on clinical parameters. 6. Nutrition by NG tube. 7. DVT and stress ulcer prophylaxis. Justus Grewal M.D. DR: Umair JOB#: [id number] CC:
[2018-12-01] VITALS (25 sets, daily range): BP systolic 99–163; BP diastolic 60–99
--- NOTE | 2018-12-01 01:30 | NUR ---
NURSE NOTES: Patient in bed resting with on and off episode of trying to pull out tubing, bilateral wrist restraint on, checked Q2 hour. Encouraged patient to verbalize needs, fears and feelings to staff. Will continue to monitor.
[2018-12-01] MEDS: Albuterol/Ipratropium 3ml neb HHN SCH ×6 (03:13→23:04)
--- NOTE | 2018-12-01 03:30 | NUR ---
NURSE NOTES: Bed bath given tolerated well. Repositioned, oral care provided. No s/s of acute distress noted. Will continue plan of care.
[2018-12-01] MEDS: LORazepam Inj 2mg/ml 1ml IV PRN ×4 (04:54→20:29)
[2018-12-01] MEDS: metroNIDAZOLE 500mg tab NG SCH ×3 (05:28→22:30)
[2018-12-01] MEDS: Solu-MEDROL 125mg Inj IVP SCH ×3 (05:28→21:24)
--- NOTE | 2018-12-01 05:30 | NUR ---
NURSE NOTES: Patient in bed with on and off episode of trying to pull out tubing, bilateral wrist restraint on, checked Q2 hour. Encouraged patient to verbalize needs, fears and feelings to staff not effective Ativan PRN given effective. Will continue to monitor.
[2018-12-01 05:56] LABS: ALANINE AMINOTRANSFERASE 42 U/L (12-78); ALBUMIN 2.8 G/DL (3.4-5.0); ALBUMIN/GLOBULIN RATIO 0.8 (1.0-2.7); ALKALINE PHOSPHATASE 49 U/L (46-116); ANION GAP 12 mmol/L (5-15); ASPARTATE AMINO TRANSFERASE 29 U/L (15-37); BILIRUBIN,TOTAL 0.6 MG/DL (0.2-1.0); BLOOD UREA NITROGEN 30 mg/dL (7-18); CALCIUM 8.4 MG/DL (8.5-10.1); CARBON DIOXIDE 25 MMOL/L (21-32); CHLORIDE 105 MMOL/L (98-107); CREATININE 0.8 MG/DL (0.55-1.30); POTASSIUM 3.8 MMOL/L (3.5-5.1); SODIUM 141 MMOL/L (136-145)
[2018-12-01 06:00] LABS: HEMATOCRIT 26.6 % (42.0-52.0); MEAN CORPUSCULAR VOLUME 88 FL (80-99); PLATELET COUNT 145 K/UL (150-450); RED BLOOD COUNT 3.02 M/UL (4.70-6.10); RED CELL DISTRIBUTION WIDTH 18.7 % (11.6-14.8); WHITE BLOOD COUNT 20.7 K/UL (4.8-10.8)
--- NOTE | 2018-12-01 06:53 | NUR ---
RESPIRATORY NOTE: Patient received mechanically ventilated on PB840 with current ordered vent settings: AC 20-550ml-40%FiO2- peep of 5.Pt was orally intubated with ETT 7.0 at 22cm lips line, secured by anchor fast. pt is awake and alert, can follow sipmle commands, but pt is really agitated. Breath sounds are coarse bilaterally. Moderate amount of thick white yellow secretions were suctioned without incident. Vent alarms are functional and audible, an ambu bag available at the bedside and the vent is plugged into a red outlet. Will continue to monitor. Will continue to monitor.
--- NOTE | 2018-12-01 07:20 | NUR ---
HAND-OFF: Report given to Foster JUAREZ.
--- NOTE | 2018-12-01 07:30 | NUR ---
NURSE NOTES: Received the patient from ANN Bradshaw. Patient is sedated. per PM RN [place] administered for extreme agitation. intubated ETT 7, 22cm @lip line. vent settings AC 20, TV 550, FIO2 40%, PEEP 5, O2 sat 96%. No acute distress noted. Kimball cath intact and patent, draining yellow urine below bladder. abdomen non tender. no bm this shift. OGT running glucernia @55ml/hr. no residual. Lt femoral TLC patent, running NS at 75ml/hr. bilateral soft wrist restraints noted. bilateral radial pulses present. contact precautions in place. Bed in lowest position, locked w/side rails upx3. Call light within reach. Bed alarm on. Will continue to monitor.
--- NOTE | 2018-12-01 08:37 | NUR ---
RADIOLOGY DEPT., CHEST X-RAY DONE.-P.DYE
[2018-12-01] MEDS: Heparin 5000 units/ml inj SUBQ SCH ×2 (09:00→21:48)
[2018-12-01] MEDS: Cefepime HCl 1 GM in D5W 55 ML IVPB SCH ×2 (09:18→21:24)
--- NOTE | 2018-12-01 09:34 | General Progress Note ---
Assessment/Plan Problem List: (1) Atrial flutter ICD Codes: I48.92 - Unspecified atrial flutter SNOMED: 1031712 (2) CHF (congestive heart failure) ICD Codes: I50.9 - Heart failure, unspecified SNOMED: 01045195 (3) Hyperglycemia ICD Codes: R73.9 - Hyperglycemia, unspecified SNOMED: 27919607 (4) Abdominal pain ICD Codes: R10.9 - Unspecified abdominal pain SNOMED: 10493651 (5) Fall ICD Codes: W19.XXXA - Unspecified fall, initial encounter SNOMED: 8041907, 661948206 (6) Tachycardia ICD Codes: R00.0 - Tachycardia, unspecified SNOMED: 1950290 (7) COPD exacerbation ICD Codes: J44.1 - Chronic obstructive pulmonary disease with (acute) exacerbation SNOMED: 185796371, 601348227 (8) Respiratory failure ICD Codes: J96.90 - Respiratory failure, unspecified, unspecified whether with hypoxia or hypercapnia SNOMED: 175123625 Qualifiers: Qualified Codes: J96.02 - Acute respiratory failure with hypercapnia Status: stable, progressing Assessment/Plan cont current rx wean vent resp care abx steroids Subjective ROS Limited/Unobtainable: No Constitutional: Reports: malaise, weakness HEENT: Reports: no symptoms Cardiovascular: Reports: no symptoms Respiratory: Reports: shortness of breath Gastrointestinal/Abdominal: Reports: no symptoms Genitourinary: Reports: no symptoms Neurologic/Psychiatric: Reports: no symptoms Endocrine: Reports: no symptoms Hematologic/Lymphatic: Reports: no symptoms Allergies: Coded Allergies: No Known Allergies (Unverified , 10/17/18) All Systems: reviewed and negative except above Subjective calmer. on the vent. sedated. no bleeding. Objective Last 24 Hour Vital Signs Date Time Temp Pulse Resp B/P (MAP) Pulse Ox O2 Delivery O2 Flow Rate FiO2 12/01/18 08:47 81 20 40 12/01/18 08:00 40 12/01/18 08:00 98.6 91 17 145/83 (103) 100 12/01/18 07:00 86 18 124/85 (98) 97 12/01/18 06:53 86 23 94 Mechanical Ventilator 40 12/01/18 06:53 86 23 40 12/01/18 06:43 80 21 98 Mechanical Ventilator 40 12/01/18 06:00 93 19 103/60 (74) 95 12/01/18 05:00 103 20 120/76 (91) 98 12/01/18 05:00 111 21 40 12/01/18 04:00 40 12/01/18 04:00 Endotracheal Tube 12/01/18 04:00 97.4 99 21 120/73 (89) 100 12/01/18 03:32 95 12/01/18 03:23 102 22 99 Mechanical Ventilator 40 12/01/18 03:13 95 20 99 Mechanical Ventilator 40 12/01/18 03:12 95 20 40 12/01/18 03:00 93 20 133/76 (95) 12/01/18 02:00 84 20 109/72 (84) 98 12/01/18 01:15 106 20 40 12/01/18 01:00 113 19 151/99 (116) 85 12/01/18 00:00 98.5 99 20 99/66 (77) 93 12/01/18 00:00 Endotracheal Tube 11/30/18 23:51 101 11/30/18 23:24 99 20 98 Mechanical Ventilator 40 11/30/18 23:14 107 20 97 Mechanical Ventilator 40 11/30/18 23:14 107 20 40 11/30/18 23:00 108 20 98/58 (71) 87 11/30/18 22:00 115 23 118/82 (94) 99 11/30/18 21:05 107 21 40 11/30/18 21:00 111 20 115/66 (82) 100 11/30/18 20:00 40 11/30/18 20:00 98.6 114 19 111/69 (83) 99 11/30/18 20:00 Endotracheal Tube 11/30/18 19:33 116 20 100 Mechanical Ventilator 40 11/30/18 19:23 111 20 98 Mechanical Ventilator 40 11/30/18 19:22 111 20 40 11/30/18 19:00 113 24 107/62 (77) 100 11/30/18 18:00 122 18 120/68 (85) 100 11/30/18 17:16 117 20 40 11/30/18 17:00 98.4 105 20 106/68 (81) 100 11/30/18 16:00 110 11/30/18 16:00 40 11/30/18 16:00 Endotracheal Tube 11/30/18 16:00 109 20 101/68 (79) 100 11/30/18 15:00 99 20 91/62 (72) 100 11/30/18 14:59 107 20 100 Mechanical Ventilator 40 11/30/18 14:49 108 20 100 Mechanical Ventilator 40 11/30/18 14:48 105 20 40 11/30/18 14:00 95 20 100/61 (74) 99 11/30/18 13:12 128 23 40 11/30/18 13:00 116 21 106/65 (79) 100 11/30/18 12:00 Endotracheal Tube 11/30/18 12:00 114 11/30/18 12:00 98.0 115 20 116/63 (80) 100 11/30/18 12:00 40 11/30/18 11:11 113 21 100 Mechanical Ventilator 40 11/30/18 11:11 115 23 40 11/30/18 11:03 113 23 100 Mechanical Ventilator 40 11/30/18 11:00 113 19 100/66 (77) 100 11/30/18 10:00 115 18 98/60 (73) 96 Intake and Output 11/30/18 12/01/18 19:00 07:00 Intake Total 1223.75 ml 1255 ml Output Total 950 ml 775 ml Balance 273.75 ml 480 ml Free Water 150 ml 150 ml IV Total 878.75 ml 430 ml Tube Feeding 195 ml 615 ml Other 60 ml Output Urine Total 950 ml 775 ml Laboratory Tests 11/30/18 19:20: Magnesium Level 1.9, Pro-B-Type Natriuretic Peptide 1322H 12/01/18 04:00: White Blood Count 20.7H, Red Blood Count 3.02L, Hemoglobin 8.0#L, Hematocrit 26.6#L, Mean Corpuscular Volume 88, Mean Corpuscular Hemoglobin 26.5L, Mean Corpuscular Hemoglobin Concent 30.2L, Red Cell Distribution Width 18.7H, Platelet Count 145L, Mean Platelet Volume 7.0, Neutrophils (%) (Auto) , Lymphocytes (%) (Auto) , Monocytes (%) (Auto) , Eosinophils (%) (Auto) , Basophils (%) (Auto) , Differential Total Cells Counted 100, Neutrophils % ( Manual) 94H, Lymphocytes % (Manual) 2L, Monocytes % (Manual) 4, Eosinophils % ( Manual) 0, Basophils % (Manual) 0, Band Neutrophils 0, Platelet Estimate DecreasedL, Platelet Morphology Normal, Anisocytosis 1+, Sodium Level 141, Potassium Level 3.8, Chloride Level 105, Carbon Dioxide Level 25, Anion Gap 12, Blood Urea Nitrogen 30H, Creatinine 0.8, Estimat Glomerular Filtration Rate , Glucose Level 119#H, Calcium Level 8.4L, Total Bilirubin 0.6, Aspartate Amino Transf (AST/SGOT) 29, Alanine Aminotransferase (ALT/SGPT) 42, Alkaline Phosphatase 49, Total Protein 6.1L, Albumin 2.8L, Globulin 3.3, Albumin/ Globulin Ratio 0.8L Height (Feet): 5 Height (Inches): 7.00 Weight (Pounds): 100 General Appearance: WD/WN, lethargic Neck: supple Cardiovascular: normal peripheral pulses, normal rate, regular rhythm Respiratory/Chest: chest wall non-tender, lungs clear, normal breath sounds, decreased breath sounds Abdomen: normal bowel sounds, non tender, soft Edema: no edema noted Arm (L), no edema noted Arm (R), no edema noted Leg (L), no edema noted Leg (R), no edema noted Pedal (L), no edema noted Pedal (R), no edema noted Generalized Varun Stewart MD Dec 01, 2018 09:34
--- NOTE | 2018-12-01 09:35 | NUR ---
NURSE NOTES: MD GORDON HERE TO SEE PT. NO NEW ORDERS AT THIS TIME. INFORMED OF H/H DECREASE AND PER NOC RN RED SECRETIONS FROM OGT PLACEMENT, OLD BLOOD AT FEMORAL SITE.
--- NOTE | 2018-12-01 11:12 | Pulmonolgy Critical Care Note ---
Critical Care - Asmt/Plan Assessment/Plan: Pulmonary CCM Progress Note HPI: The patient is a 73-year-old male halfway resident. He was in respiratory distress, lethargic, requiring intubation and MV. The patient has a history of COPD PAST MEDICAL HISTORY: Diabetes mellitus, hypertension, asthma, COPD. SOCIAL HISTORY: At this time, denies tobacco or alcohol use. No further history known. REVIEW OF SYSTEMS: NA. PAST SURGICAL HISTORY: None. PHYSICAL EXAMINATION: GENERAL: Reveals a intubated male. VITAL SIGNS NOTED HEENT: Unremarkable. CHEST: Clear breath sounds bilaterally. HEART: Normal heart sounds. ABDOMEN: Soft. EXTREMITIES: No edema. LABORATORY AND DIAGNOSTIC DATA NOTED: Imaging studies per ER physician unremarkable. Lab testing shows white count 04394, hemoglobin 11. Creatinine 1.1 and glucose 242. ABG shows pH 7.38, pCO2 43, pO2 68. IMAGING NOTED: X-rays reviewed and show right lower lobe infiltrate suspicion of pneumonia. IMPRESSION: 1. Respiratory failure. 2. Exacerbation of COPD. 3. Diabetes mellitus. 4. Hypertension. PLAN: Continue current ventilator settings, wean as tolerated. Agree with broad-spectrum antibiotics, Breathing treatments and steroids. Adjust FIO2 PPX Critical Care - Objective Last 24 Hour Vital Signs Date Time Temp Pulse Resp B/P (MAP) Pulse Ox O2 Delivery O2 Flow Rate FiO2 12/01/18 10:55 87 20 99 Mechanical Ventilator 40 12/01/18 10:45 76 20 40 12/01/18 10:45 77 21 99 Mechanical Ventilator 40 12/01/18 10:00 88 20 126/69 (88) 99 12/01/18 09:00 84 20 111/67 (82) 100 12/01/18 08:47 81 20 40 12/01/18 08:00 Endotracheal Tube 12/01/18 08:00 40 12/01/18 08:00 98.6 91 17 145/83 (103) 100 12/01/18 07:00 86 18 124/85 (98) 97 12/01/18 06:53 86 23 94 Mechanical Ventilator 40 12/01/18 06:53 86 23 40 12/01/18 06:43 80 21 98 Mechanical Ventilator 40 12/01/18 06:00 93 19 103/60 (74) 95 12/01/18 05:00 103 20 120/76 (91) 98 12/01/18 05:00 111 21 40 12/01/18 04:00 40 12/01/18 04:00 Endotracheal Tube 12/01/18 04:00 97.4 99 21 120/73 (89) 100 12/01/18 03:32 95 12/01/18 03:23 102 22 99 Mechanical Ventilator 40 12/01/18 03:13 95 20 99 Mechanical Ventilator 40 12/01/18 03:12 95 20 40 12/01/18 03:00 93 20 133/76 (95) 12/01/18 02:00 84 20 109/72 (84) 98 12/01/18 01:15 106 20 40 12/01/18 01:00 113 19 151/99 (116) 85 12/01/18 00:00 98.5 99 20 99/66 (77) 93 12/01/18 00:00 Endotracheal Tube 11/30/18 23:51 101 11/30/18 23:24 99 20 98 Mechanical Ventilator 40 11/30/18 23:14 107 20 97 Mechanical Ventilator 40 11/30/18 23:14 107 20 40 11/30/18 23:00 108 20 98/58 (71) 87 11/30/18 22:00 115 23 118/82 (94) 99 11/30/18 21:05 107 21 40 11/30/18 21:00 111 20 115/66 (82) 100 11/30/18 20:00 40 11/30/18 20:00 98.6 114 19 111/69 (83) 99 11/30/18 20:00 Endotracheal Tube 11/30/18 19:33 116 20 100 Mechanical Ventilator 40 11/30/18 19:23 111 20 98 Mechanical Ventilator 40 11/30/18 19:22 111 20 40 11/30/18 19:00 113 24 107/62 (77) 100 11/30/18 18:00 122 18 120/68 (85) 100 11/30/18 17:16 117 20 40 11/30/18 17:00 98.4 105 20 106/68 (81) 100 11/30/18 16:00 110 11/30/18 16:00 40 11/30/18 16:00 Endotracheal Tube 11/30/18 16:00 109 20 101/68 (79) 100 11/30/18 15:00 99 20 91/62 (72) 100 11/30/18 14:59 107 20 100 Mechanical Ventilator 40 11/30/18 14:49 108 20 100 Mechanical Ventilator 40 11/30/18 14:48 105 20 40 11/30/18 14:00 95 20 100/61 (74) 99 11/30/18 13:12 128 23 40 11/30/18 13:00 116 21 106/65 (79) 100 11/30/18 12:00 Endotracheal Tube 11/30/18 12:00 114 11/30/18 12:00 98.0 115 20 116/63 (80) 100 11/30/18 12:00 40 11/30/18 11:11 113 21 100 Mechanical Ventilator 40 11/30/18 11:11 115 23 40 Micro: Microbiology Date/Time Source Procedure Growth Status 11/29/18 18:35 Blood Blood Culture - Preliminary NO GROWTH AFTER 24 HOURS Resulted 11/29/18 18:35 Blood Blood Culture - Preliminary NO GROWTH AFTER 24 HOURS Resulted 11/30/18 00:20 Sputum Gram Stain - Final Resulted 11/30/18 00:20 Sputum Culture - Preliminary Gram Negative Frantz Vicki Albicans Resulted 11/29/18 21:00 Rectum VRE Culture - Final Enterococcus Faecium - Vre Complete Critical Care - Subjective ROS Limited/Unobtainable: Yes Condition: stable FI02: 40 Vent Support Breath Rate: 20 Vent Support Mode: AC Vent Tidal Volume: 550 Sputum Amount: Small PEEP: 5.0 PIP: 33 Tube Feeding Amount: 55 I&O: Intake and Output 11/30/18 12/01/18 18:59 06:59 Intake Total 1188.75 ml 1260 ml Output Total 950 ml 810 ml Balance 238.75 ml 450 ml Free Water 150 ml 100 ml IV Total 878.75 ml 505 ml Tube Feeding 160 ml 595 ml Other 60 ml Output Urine Total 950 ml 810 ml ET-Tube: 7.0 ET Position: 22 Justus Geiger MD Dec 01, 2018 11:12
--- NOTE | 2018-12-01 11:48 | NUR ---
NURSE NOTES: Patient in bed resting, has episodes of extreme itching. applied ointment to dry scalp and skin. bilateral wrist restraints on, checking Q2 hour. Encouraged patient to relax, not scratch. Will continue to monitor.
--- NOTE | 2018-12-01 12:10 | Diagnostic Imaging Report ---
Indication: Dyspnea Comparison: 11/29/2018 A single view chest radiograph was obtained. Findings: Lung volumes are diminished even more on the current exam. Basilar infiltrates versus atelectasis demonstrated. Pulmonary vascularity again appears prominent bilaterally. Mild interstitial opacities again noted. Endotracheal tube and nasogastric tube remain in good position. The heart remains enlarged. IMPRESSION: No significant interval change. Basilar infiltrates versus atelectasis. Cardiomegaly with probable mild CHF
--- NOTE | 2018-12-01 13:31 | NUR ---
E [employer] SI:RESPIRATORY FAILURE VS: BP 144/87, P 72, T 98.9, RR 16, SdV218 ETT FiO2 40% WBC 20.7, RBC 3.02, Hgb8.0, Hct 26.6,ABG: pO2 68.6, O2 Sat 93.4, BUN 30 CXR IMPRESSION: No significant interval change. Basilar infiltrates versus atelectasis. Cardiomegaly with probable mild CHF. SI:CEFEPIME 55ml IVPB ALBUTEROL 3ml HHN NS IV x1L PROTONIX 40mg HEPARIN SUBQ FLAGYL 500mg NG ICU STATUS
--- NOTE | 2018-12-01 14:53 | NUR ---
NURSE NOTES: completed shampoo of pt hair with Selsun shampoo.no head lice identified, just areas of redness from pt scratching earlier pt feels better but request help to rest still anxious. Ativan 0.5ml ivp administered per MD order. will continue to monitor pt.
[2018-12-01] MEDS ORDERED: SELENIUM TOPIC SCH ×2 (15:00→21:00)
--- NOTE | 2018-12-01 17:13 | NUR ---
NURSE NOTES: pt resting in bed. c/o head still itch but not as much. pt cleaned and reposition. restraints intact. radial pulses present, no edema. contact precautions in place. will continue opt monitor pt.
--- NOTE | 2018-12-01 19:20 | NUR ---
NURSE NOTES: patient with episode of pulling out ETT, found patient holding on the ETT despite of having the bilateral soft wrist restraint, Secured the bilateral wrist restraint. Patient teaching provided explained the importance v/s risk and benefits of ETT per patient nod yes. Will continue to monitor patient.
--- NOTE | 2018-12-01 19:36 | NUR ---
HAND-OFF: Report given to remedios. pt in no acute distress
--- NOTE | 2018-12-01 19:48 | NUR ---
NURSE NOTES: Received the patient from ANN Hutchison. Patient is awake, alert Orally intubated ETT 7, 22cm lip line. vent settings: AC 20, TV 550, FIO2 40%, PEEP 5, O2 sat 98%. No acute distress noted. SR with HR 66 noted on the monitor. Kimball cath intact and patent, draining yellow urine by gravity. OGT intact running Glucerna 1.2 at 35cc/hr goal 55cc/hr, no residual. Left femoral TLC intact, running NS at 75ml/hr. On bilateral soft wrist restraints. No skin breakdown noted. pulses present. active ROM. Bed in lowest position, locked, side rails upx3. Call light within reach. Bed alarm on. Will continue to monitor.
--- NOTE | 2018-12-01 20:00 | NUR ---
NURSE NOTES: Patient in bed resting, no s/s of restlessness.
[2018-12-01] MEDS: Dyna-Hex 2% Top Sol 2oz TOPIC SCH (20:29)
--- NOTE | 2018-12-01 20:30 | NUR ---
NURSE NOTES: Patient Vent alarm on checked patient, patient was coughing and restless noted patient ETT lip line 14cm suppose to be 22cm lip line. called RT and Charge nurse. Ativan given As needed for anxiety. Bilateral wrist restraint intact.
--- NOTE | 2018-12-01 20:48 | NUR ---
Rt got called around 20:30 that patient self extubated. Patient restless at times, patient on restraints not sedated. Found patient with ETT half way out no signs of respiratory distress placed on 2lnc vitals are as follows HR78/ RR14/ Spo2 100%. Auscultated diminished breath sounds no stridor noted. ABG to be drawn.
--- NOTE | 2018-12-01 21:10 | NUR ---
NURSE NOTES: Stat ABG order
--- NOTE | 2018-12-01 21:23 | NUR ---
NURSE NOTES: Dr Stewart came seen and examined the patient. MD made aware of patient self extubated and made aware of ABG result MD ordered BIPAP order noted and carried. RT and charge nurse aware.
--- NOTE | 2018-12-01 21:43 | NUR ---
NURSE NOTES: Dr Geiger made aware that patient self extubated and reported ABG result per MD BIPAP order.
--- NOTE | 2018-12-01 22:00 | NUR ---
NURSE NOTES: Patient on BIPAP 17/12 Fi02 25% satting 98%. Patient in bed sleeping comfortably. OGT intact checked for placement, no residual. Bed in low position, bed alarm on. Will continue to monitor patient.
--- NOTE | 2018-12-01 22:09 | NUR ---
NURSE NOTES: Dr. Geiger came and seen the patient.
--- NOTE | 2018-12-01 23:25 | NUR ---
NURSE NOTES: Patient in bed awake with on and off episode of trying to pull out BIPAP , bilateral wrist restraint on, checked Q2 hour. Encouraged patient to verbalize needs, fears and feelings to staff per patient he wants water explained to patient that he has OGT and i will give water through OGT and he have order for swallow eval in am to check for swallowing for his safety. Will continue to monitor.
[2018-12-02] VITALS (24 sets, daily range): BP systolic 105–142; BP diastolic 58–82
--- NOTE | 2018-12-02 01:25 | NUR ---
NURSE NOTES: Patient sleeping in bed no s/s of cardiac and acute distress noted. BIPAP on satting 98%. Reapportioned for comfort. Bilateral soft wrist restraint checked Q2hour.. Call light within easy reach. Will continue plan of care.
--- NOTE | 2018-12-02 02:00 | Progress Note ---
DATE: 12/01/2018 CARDIOLOGY PROGRESS NOTE SUBJECTIVE: The patient remains orally intubated. Mechanically ventilated. Monitored rhythm, sinus tachycardia and sinus rhythm. Atrial ectopy noted, nonsustained. OBJECTIVE: VITAL SIGNS: Blood pressure 126/69, pulse 88, and respirations 20. LUNGS: Coarse breath sounds. Scattered rhonchi. HEART: Regular rhythm and rate. Normal S1, S2. ABDOMEN: Soft. EXTREMITIES: No edema. LABORATORY DATA: White count 20 and hemoglobin 8. ABG, pH 7.38, pCO2 43, and pO2 69. Potassium 3.8, BUN 30, creatinine 0.8, and albumin 2.8. IMPRESSION: 1. Respiratory failure. 2. Hypoxia. 3. Aspiration pneumonia. 4. Sepsis. 5. Leukocytosis. 6. Methadone dependence. 7. Moderate protein-calorie malnutrition. 8. Chronic obstructive pulmonary disease exacerbation. 9. Acute on chronic diastolic congestive heart failure. PLAN: 1. Antibiotics. 2. Respiratory hygiene. 3. Bronchodilators. 4. DVT prophylaxis. 5. Cautious diuresis based on clinical parameters. 6. Maintenance hydration for now. 7. Await culture results. Justus Grewal M.D. DR: BRIDGET JOB#: [id number] CC:
--- NOTE | 2018-12-02 02:15 | Progress Note ---
DATE: 12/01/2018 CARDIOLOGY PROGRESS NOTE Incomplete Dictation Justus Grewal M.D. DR: CAPRI JOB#: [id number] CC:
--- NOTE | 2018-12-02 03:25 | NUR ---
NURSE NOTES: Patient in bed resting no s/s of restlessness at this time. BIPAP on satting 98%. HOB elevated. OGT intact. No complain of pain or discomfort. Skin warm and dry to touch. Will continue to monitor patient.
[2018-12-02] MEDS: Albuterol/Ipratropium 3ml neb HHN SCH ×6 (03:30→23:22)
--- NOTE | 2018-12-02 05:25 | NUR ---
NURSE NOTES: Bed bath given tolerated well. Bilateral soft wrist restraint checked every 2 hour. Kimball draining. No s/s of acute distress noted. Will continue plan of care
[2018-12-02] MEDS: Solu-MEDROL 125mg Inj IVP SCH (05:40)
[2018-12-02] MEDS: metroNIDAZOLE 500mg tab NG SCH ×3 (05:40→21:55)
--- NOTE | 2018-12-02 07:00 | NUR ---
Received Patient on BIPAP 14/4 PS +10 Back Up Rate 16 currently on facial mask. Diminished breath sounds heard bilaterally throughout both lung esparza. Patient alert and awake. Will continue to monitor patient.
--- NOTE | 2018-12-02 07:21 | NUR ---
HAND-OFF: Report given to Justus JUAREZ
[2018-12-02] MEDS: Heparin 5000 units/ml inj SUBQ SCH ×2 (09:00→20:48)
--- NOTE | 2018-12-02 10:12 | NUR ---
CASE MANAGEMENT: REVIEW SI: RESPIRATORY FAILURE T 97.4 HR 59 RR 15 BP 140/66 SAT 97% BIPAP FIO2 25 PH 7.370 PCO2 42.1 PO2 63.1 HCO3 23.8 O2 SAT 89.6 IS: FLAGYL NG Q8HR HEPARIN SQ Q12HR SOLU MEDROL IV Q8HR ALBUTEROL HHN Q4HR ST SWALLOW EVAL WEANING DETERMINATION ICU STATUS DCP: PATIENT IS FROM [facility]
--- NOTE | 2018-12-02 10:35 | Pulmonology Progress Note ---
Assessment/Plan Assessment/Plan IMPRESSION: 1. Respiratory failure. 2. Exacerbation of COPD. 3. Diabetes mellitus. 4. Hypertension. 5. Pulmonary edema DISCUSSION: Agree with broad-spectrum antibiotics and steroids. Extubated now X-rays reviewed; shows pulmonary edema Will dc IV fluids Will diurese I will follow carefully. Subjective Interval Events: Self - extubated yesterday at 8 pm; on 40% VTM mask now Constitutional: Reports: no symptoms HEENT: Repors: no symptoms Respiratory: Reports: no symptoms Cardiovascular: Reports: no symptoms Gastrointestinal/Abdominal: Reports: no symptoms Genitourinary: Reports: no symptoms Neurologic: Reports: no symptoms Allergies: Coded Allergies: No Known Allergies (Unverified , 10/17/18) Objective Last 24 Hour Vital Signs Date Time Temp Pulse Resp B/P (MAP) Pulse Ox O2 Delivery O2 Flow Rate FiO2 12/02/18 09:26 88 18 98 10.0 45 12/02/18 08:47 85 16 97 Facial 25 12/02/18 07:07 69 17 100 Bi-pap 25 12/02/18 07:05 64 19 100 Facial 25 12/02/18 07:00 72 16 98 Bi-pap 25 12/02/18 07:00 74 16 140/79 (99) 12/02/18 06:00 65 19 127/69 (88) 97 12/02/18 05:20 74 18 98 Facial 25 12/02/18 05:00 84 17 120/71 (87) 88 12/02/18 04:00 97.4 70 15 140/66 (90) 97 12/02/18 04:00 Bi-pap 12/02/18 04:00 25 12/02/18 04:00 62 12/02/18 03:39 59 16 100 Bi-pap 25 12/02/18 03:29 71 16 97 Bi-pap 25 12/02/18 03:28 71 16 97 Facial 25 12/02/18 03:00 61 16 131/75 (93) 98 12/02/18 02:00 65 17 132/73 (92) 98 12/02/18 01:00 67 16 128/81 (97) 97 12/02/18 00:43 61 16 98 Facial 25 12/02/18 00:00 Bi-pap 12/02/18 00:00 97.9 85 17 142/75 (97) 99 12/01/18 23:13 60 16 100 Bi-pap 25 12/01/18 23:03 60 16 97 Bi-pap 25 12/01/18 23:02 60 16 97 Facial 25 12/01/18 23:00 60 14 136/79 (98) 98 12/01/18 22:00 73 16 129/67 (87) 95 12/01/18 22:00 25 12/01/18 21:50 79 16 128/76 (93) 96 12/01/18 21:46 77 18 98 Facial 25 12/01/18 21:00 79 16 128/76 (93) 96 12/01/18 20:30 Nasal Cannula 2.0 28 12/01/18 20:00 Endotracheal Tube 12/01/18 20:00 98.7 69 20 147/78 (101) 98 12/01/18 20:00 40 12/01/18 20:00 66 12/01/18 19:04 70 20 152/85 (107) 99 12/01/18 19:00 72 22 100 Endotracheal Tube 30 12/01/18 18:49 70 20 99 Endotracheal Tube 30 12/01/18 18:48 70 20 30 12/01/18 18:00 66 21 149/86 (107) 99 12/01/18 17:00 70 20 160/83 (108) 100 12/01/18 16:46 72 20 40 12/01/18 16:00 Endotracheal Tube 12/01/18 16:00 40 12/01/18 16:00 99.0 78 20 163/94 (117) 92 12/01/18 16:00 71 12/01/18 15:05 75 20 99 Mechanical Ventilator 40 12/01/18 15:00 66 20 143/74 (97) 99 12/01/18 14:54 77 20 99 Mechanical Ventilator 40 12/01/18 14:52 67 20 40 12/01/18 14:00 74 17 131/73 (92) 93 12/01/18 13:00 70 20 130/87 (101) 100 12/01/18 12:43 73 22 40 12/01/18 12:00 Endotracheal Tube 12/01/18 12:00 98.9 98 16 144/87 (106) 99 12/01/18 12:00 100 12/01/18 12:00 40 12/01/18 11:00 88 20 126/69 (88) 99 12/01/18 11:00 72 18 123/65 (84) 99 12/01/18 10:55 87 20 99 Mechanical Ventilator 40 12/01/18 10:45 76 20 40 12/01/18 10:45 77 21 99 Mechanical Ventilator 40 Intake and Output 12/01/18 12/02/18 19:00 07:00 Intake Total 1582 ml 1487 ml Output Total 675 ml 605 ml Balance 907 ml 882 ml Free Water 50 ml 100 ml IV Total 872 ml 892 ml Tube Feeding 660 ml 495 ml Output Urine Total 675 ml 605 ml # Bowel Movements 2 General Appearance: no acute distress HEENT: atraumatic Respiratory/Chest: chest wall non-tender, decreased breath sounds Cardiovascular: normal peripheral pulses, normal rate Abdomen: normal bowel sounds, soft, non tender Microbiology Date/Time Source Procedure Growth Status 11/29/18 18:35 Blood Blood Culture - Preliminary NO GROWTH AFTER 48 HOURS Resulted 11/29/18 18:35 Blood Blood Culture - Preliminary NO GROWTH AFTER 48 HOURS Resulted 11/30/18 00:20 Sputum Gram Stain - Final Resulted 11/30/18 00:20 Sputum Culture - Preliminary Gram Negative Frantz Vicki Albicans Resulted 11/29/18 21:00 Nose MRSA Culture - Final NO METHICILLIN RESISTANT STAPH AUREUS... Complete 11/30/18 07:20 Rectum - Final NO CARBAPENEM-RESISTANT ENTEROBACTERI... Complete 11/29/18 21:00 Rectum VRE Culture - Final Enterococcus Faecium - Vre Complete Laboratory Tests 12/01/18 21:10: Arterial Blood pH 7.273L, Arterial Blood Partial Pressure CO2 53.2H, Arterial Blood Partial Pressure O2 112.9H, Arterial Blood HCO3 24.0, Arterial Blood Oxygen Saturation 97.0, Arterial Blood Base Excess -3L, Cameron Test Positive 12/02/18 09:15: Arterial Blood pH 7.370, Arterial Blood Partial Pressure CO2 42.1, Arterial Blood Partial Pressure O2 63.1L, Arterial Blood HCO3 23.8, Arterial Blood Oxygen Saturation 89.6*L, Arterial Blood Base Excess -1.4, Cameron Test Positive Current Medications Medications (Trade) Dose Ordered Sig/Aimee Route PRN Reason Start Time Stop Time Status Last Admin Dose Admin Albuterol/ Ipratropium (Albuterol/ Ipratropium) 3 ml Q4HRT HHN 11/29/18 23:00 12/04/18 22:59 12/02/18 07:08 Cefepime HCl 1 gm/ Dextrose 55 ml @ 110 mls/hr EVERY 12 HOURS IVPB 11/29/18 23:00 12/06/18 22:59 12/01/18 21:24 Chlorhexidine Gluconate (Mayra-Hex 2%) 1 applic DAILY@2000 TOPIC 11/30/18 20:00 12/30/18 19:59 12/01/18 20:29 Heparin Sodium (Porcine) (Heparin 5000 units/ml) 5,000 units EVERY 12 HOURS SUBQ 11/30/18 09:00 12/30/18 08:59 12/01/18 21:48 Lorazepam (Ativan 2mg/ml 1ml) 1 mg Q4H PRN IV For Anxiety 11/30/18 08:30 12/07/18 08:29 12/01/18 20:29 Methylprednisolone Sodium Succinate (Solu-MEDROL) 60 mg EVERY 8 HOURS IVP 11/30/18 08:15 12/30/18 08:14 12/02/18 05:40 Metronidazole (Flagyl) 500 mg Q8HR NG 11/30/18 14:00 12/07/18 05:59 12/02/18 05:40 Pantoprazole (Protonix) 40 mg DAILY ORAL 11/30/18 09:00 12/30/18 08:59 12/01/18 09:18 Sodium Chloride 1,000 ml @ 75 mls/hr [id number] IV 11/29/18 23:00 12/29/18 22:59 12/02/18 01:37 Abhijit Morris MD Dec 02, 2018 10:35
--- NOTE | 2018-12-02 10:40 | NUR ---
NURSE NOTES: Dr. Herman updated at the bedside of patient status, he is awake and answering questions with no slur. no verbal orders given at this time, he will change medication and order for one time jesús,
[2018-12-02] MEDS: Cefepime HCl 1 GM in D5W 55 ML IVPB SCH ×2 (10:47→20:41)
--- NOTE | 2018-12-02 12:08 | General Progress Note ---
Assessment/Plan Problem List: (1) Atrial flutter ICD Codes: I48.92 - Unspecified atrial flutter SNOMED: 9767057 (2) CHF (congestive heart failure) ICD Codes: I50.9 - Heart failure, unspecified SNOMED: 83022772 (3) Hyperglycemia ICD Codes: R73.9 - Hyperglycemia, unspecified SNOMED: 43452583 (4) Abdominal pain ICD Codes: R10.9 - Unspecified abdominal pain SNOMED: 84517805 (5) Fall ICD Codes: W19.XXXA - Unspecified fall, initial encounter SNOMED: 2266304, 299846363 (6) Tachycardia ICD Codes: R00.0 - Tachycardia, unspecified SNOMED: 3396307 (7) COPD exacerbation ICD Codes: J44.1 - Chronic obstructive pulmonary disease with (acute) exacerbation SNOMED: 807917781, 806662991 (8) Respiratory failure ICD Codes: J96.90 - Respiratory failure, unspecified, unspecified whether with hypoxia or hypercapnia SNOMED: 325598650 Qualifiers: Qualified Codes: J96.02 - Acute respiratory failure with hypercapnia Status: stable, progressing Assessment/Plan cont current rx o2 bipap as needed swallow eval resp care abx steroids Subjective ROS Limited/Unobtainable: No Constitutional: Reports: malaise, weakness HEENT: Reports: no symptoms Cardiovascular: Reports: no symptoms Respiratory: Reports: cough, shortness of breath Gastrointestinal/Abdominal: Reports: no symptoms Genitourinary: Reports: no symptoms Neurologic/Psychiatric: Reports: anxiety Endocrine: Reports: no symptoms Hematologic/Lymphatic: Reports: no symptoms Allergies: Coded Allergies: No Known Allergies (Unverified , 10/17/18) All Systems: reviewed and negative except above Subjective self extubated. no fever or chills. agitated. pulled out OGT. cooperative with bipap last night Objective Last 24 Hour Vital Signs Date Time Temp Pulse Resp B/P (MAP) Pulse Ox O2 Delivery O2 Flow Rate FiO2 12/02/18 11:16 75 18 98 Venturi Mask 10.0 45 12/02/18 11:15 78 18 93 21 12/02/18 11:10 78 18 93 Room Air 21 12/02/18 11:00 79 18 140/78 (98) 100 12/02/18 10:00 77 15 119/58 (78) 100 12/02/18 09:26 88 18 98 10.0 45 12/02/18 09:00 86 17 105/59 (74) 97 12/02/18 08:47 85 16 97 Facial 25 12/02/18 08:00 Bi-pap 12/02/18 08:00 71 12/02/18 08:00 25 12/02/18 08:00 97.4 84 16 118/65 (82) 96 12/02/18 07:07 69 17 100 Bi-pap 25 12/02/18 07:05 64 19 100 Facial 25 12/02/18 07:00 72 16 98 Bi-pap 25 12/02/18 07:00 74 16 140/79 (99) 12/02/18 06:00 65 19 127/69 (88) 97 12/02/18 05:20 74 18 98 Facial 25 12/02/18 05:00 84 17 120/71 (87) 88 12/02/18 04:00 97.4 70 15 140/66 (90) 97 12/02/18 04:00 Bi-pap 12/02/18 04:00 25 12/02/18 04:00 62 12/02/18 03:39 59 16 100 Bi-pap 25 12/02/18 03:29 71 16 97 Bi-pap 25 12/02/18 03:28 71 16 97 Facial 25 12/02/18 03:00 61 16 131/75 (93) 98 12/02/18 02:00 65 17 132/73 (92) 98 12/02/18 01:00 67 16 128/81 (97) 97 12/02/18 00:43 61 16 98 Facial 25 12/02/18 00:00 Bi-pap 12/02/18 00:00 97.9 85 17 142/75 (97) 99 12/01/18 23:13 60 16 100 Bi-pap 25 12/01/18 23:03 60 16 97 Bi-pap 25 12/01/18 23:02 60 16 97 Facial 25 12/01/18 23:00 60 14 136/79 (98) 98 12/01/18 22:00 73 16 129/67 (87) 95 12/01/18 22:00 25 12/01/18 21:50 79 16 128/76 (93) 96 12/01/18 21:46 77 18 98 Facial 25 12/01/18 21:00 79 16 128/76 (93) 96 12/01/18 20:30 Nasal Cannula 2.0 28 12/01/18 20:00 Endotracheal Tube 12/01/18 20:00 98.7 69 20 147/78 (101) 98 12/01/18 20:00 40 12/01/18 20:00 66 12/01/18 19:04 70 20 152/85 (107) 99 12/01/18 19:00 72 22 100 Endotracheal Tube 30 12/01/18 18:49 70 20 99 Endotracheal Tube 30 12/01/18 18:48 70 20 30 12/01/18 18:00 66 21 149/86 (107) 99 12/01/18 17:00 70 20 160/83 (108) 100 12/01/18 16:46 72 20 40 12/01/18 16:00 Endotracheal Tube 12/01/18 16:00 40 12/01/18 16:00 99.0 78 20 163/94 (117) 92 12/01/18 16:00 71 12/01/18 15:05 75 20 99 Mechanical Ventilator 40 12/01/18 15:00 66 20 143/74 (97) 99 12/01/18 14:54 77 20 99 Mechanical Ventilator 40 12/01/18 14:52 67 20 40 12/01/18 14:00 74 17 131/73 (92) 93 12/01/18 13:00 70 20 130/87 (101) 100 12/01/18 12:43 73 22 40 Intake and Output 12/01/18 12/02/18 18:59 06:59 Intake Total 1632 ml 1487 ml Output Total 650 ml 630 ml Balance 982 ml 857 ml Free Water 100 ml 100 ml IV Total 872 ml 892 ml Tube Feeding 660 ml 495 ml Output Urine Total 650 ml 630 ml # Bowel Movements 2 Laboratory Tests 12/01/18 21:10: Arterial Blood pH 7.273L, Arterial Blood Partial Pressure CO2 53.2H, Arterial Blood Partial Pressure O2 112.9H, Arterial Blood HCO3 24.0, Arterial Blood Oxygen Saturation 97.0, Arterial Blood Base Excess -3L, Cameron Test Positive 12/02/18 09:15: Arterial Blood pH 7.370, Arterial Blood Partial Pressure CO2 42.1, Arterial Blood Partial Pressure O2 63.1L, Arterial Blood HCO3 23.8, Arterial Blood Oxygen Saturation 89.6*L, Arterial Blood Base Excess -1.4, Cameron Test Positive Height (Feet): 5 Height (Inches): 7.00 Weight (Pounds): 100 General Appearance: WD/WN, alert Neck: supple Cardiovascular: regular rhythm Respiratory/Chest: chest wall non-tender, lungs clear, normal breath sounds Abdomen: normal bowel sounds, non tender, soft, no organomegaly Edema: no edema noted Arm (L), no edema noted Arm (R), no edema noted Leg (L), no edema noted Leg (R), no edema noted Pedal (L), no edema noted Pedal (R), no edema noted Generalized Neurologic: alert, responsive Varun Stewart MD Dec 02, 2018 12:08
--- NOTE | 2018-12-02 12:10 | NUR ---
NURSE NOTES: Dr. Stewart at the bedside and completed assessment, clear patient to be transferred to [facility], patient remains on venti-mask at 45% with no distress noted, no verbal orders given at this time, will continue to monitor patient.
--- NOTE | 2018-12-02 12:55 | NUR ---
NURSE NOTES: CBC and CMP taken to laboratory for analysis, will continue to monitor patient.
[2018-12-02 13:11] LABS: HEMATOCRIT 31.4 % (42.0-52.0); HEMOGLOBIN 9.6 G/DL (14.2-18.0); MEAN CORPUSCULAR VOLUME 87 FL (80-99); PLATELET COUNT 185 K/UL (150-450); RED CELL DISTRIBUTION WIDTH 19.1 % (11.6-14.8); WHITE BLOOD COUNT 19.3 K/UL (4.8-10.8)
[2018-12-02 13:16] LABS: ALANINE AMINOTRANSFERASE 42 U/L (12-78); ALBUMIN/GLOBULIN RATIO 0.8 (1.0-2.7); ALKALINE PHOSPHATASE 50 U/L (46-116); ANION GAP 8 mmol/L (5-15); ASPARTATE AMINO TRANSFERASE 24 U/L (15-37); BILIRUBIN,TOTAL 0.4 MG/DL (0.2-1.0); BLOOD UREA NITROGEN 33 mg/dL (7-18); CALCIUM 8.7 MG/DL (8.5-10.1); CARBON DIOXIDE 28 MMOL/L (21-32); CHLORIDE 106 MMOL/L (98-107); CREATININE 0.8 MG/DL (0.55-1.30); POTASSIUM 3.6 MMOL/L (3.5-5.1); SODIUM 142 MMOL/L (136-145)
--- NOTE | 2018-12-02 14:15 | NUR ---
NURSE NOTES: patient remains calm and resting in bed, he is tolerating with venti mask at 45%, he is saturating at 95-99% with no distress, he sis able to cough up thick mucus and clear spontaneously, no bipap needed at this time.
[2018-12-02] MEDS: Solu-MEDROL 40mg Inj IVP SCH ×2 (14:30→21:55)
[2018-12-02] MEDS ORDERED: Tubing IV Secondary IV ONE (18:54)
[2018-12-02] MEDS ORDERED: D5NS 1000ml IV ONE (18:54)
[2018-12-02] MEDS ORDERED: NS 275ml ONE (18:54)
[2018-12-02] MEDS ORDERED: NS 500ML ONE (18:54)
--- NOTE | 2018-12-02 19:23 | NUR ---
NURSE NOTES: Received patient in bed with eyes closed. Sinus rhythm on the monitor. Hr 99. On 2 L NC at this time sats 100%. Patient ate 100% of his dinner. Currently on a cardiac diet, [place] thick. Left femoral TLC TKO at this time, all ports noted to be flushing well with no resistance. Kimball cath draining yellow urine by gravity at this time. Bed in lowest position at this time. Side rails upx3. Bed side teaching done about the importance of staying in bed and using the call light. On contact precautions, bed in lowest position. Will continue to monitor.
--- NOTE | 2018-12-02 19:32 | NUR ---
HAND-OFF: Report given to ANN Al.
[2018-12-02] MEDS: Dyna-Hex 2% Top Sol 2oz TOPIC SCH (19:52)
--- NOTE | 2018-12-02 21:00 | NUR ---
NURSE NOTES: Assisted patient with turned at this time. Continues on 2L NC sats 100%. Bed alarm on. room close to the nurse station. Will continue to monitor.
--- NOTE | 2018-12-02 22:00 | Progress Note ---
DATE: 12/02/2018 CARDIOLOGY PROGRESS NOTE SUBJECTIVE: The patient remains on vent. The patient self-extubated himself. He also pulled out his orogastric tube. He remained on BiPAP overnight. He is alert, but agitated. OBJECTIVE: VITAL SIGNS: Blood pressure 140/78, pulse 79, and respirations 18. LUNGS: Coarse breath sounds with rhonchi. CARDIAC: Regular rhythm and rate. Normal S1, S2. ABDOMEN: Soft, nontender. EXTREMITIES: Trace edema. LABORATORY DATA: White count 19, hemoglobin 9.6. Potassium 3.6, BUN 33, creatinine 0.8. Albumin 3. PLAN: 1. Respiratory therapy. 2. BiPAP support. 3. Diuresis. 4. Antimicrobials. 5. Methadone. 6. DVT and stress ulcer prophylaxis. Justus Grewal M.D. DR: BERNA JOB#: [id number] CC:
--- NOTE | 2018-12-02 23:00 | NUR ---
NURSE NOTES: Patient refused to be placed at this time. Currently getting a breathing tx.
[2018-12-02] MEDS: LORazepam Inj 2mg/ml 1ml IV PRN (23:32)
[2018-12-03] VITALS (11 sets, daily range): BP systolic 111–137; BP diastolic 60–89
--- NOTE | 2018-12-03 02:30 | NUR ---
NURSE NOTES: Assisted patient to repositioning. CHG bath given. Patient continues to refuse bi-pap at this time. No signs of distress noted. Will continue to monitor
[2018-12-03] MEDS: Albuterol/Ipratropium 3ml neb HHN SCH ×6 (03:35→23:22)
--- NOTE | 2018-12-03 04:20 | NUR ---
TRANSFER TO FLOOR: Patient transferred to SDU Room 237-1, per MD Stewart. Report given to Klarissa Pritchett. Belongings and medications given to Yani. Family and or S/O informed of transfer. Patient transferred with cardiac care unit nurse, o2. No signs of distress noted upon transfer.
--- NOTE | 2018-12-03 04:22 | NUR ---
NURSE NOTES: RECEIVED PATIENT FROM ICU VIA HOSPITAL BED, REPORTED FROM ANN JAIMES. PATIENT ALERT, ORIENTED X4, DENIED PAIN OR DISTRESS STATUS, ON O2 3LPM VIA NC, NO SOB OR DISTRESS NOTED, TLC TO LEFT FEMORAL INTACT AND PATENT STATUS, PROVIDED CALL LIGHT WITHIN REACH, MADE LOWER BED POSITION, WILL CONTINUE TO MONITOR.
[2018-12-03] MEDS: metroNIDAZOLE 500mg tab NG SCH ×3 (05:38→21:53)
[2018-12-03] MEDS: Solu-MEDROL 40mg Inj IVP SCH ×3 (05:38→21:53)
[2018-12-03 06:02] LABS: HEMATOCRIT 28.4 % (42.0-52.0); HEMOGLOBIN 8.7 G/DL (14.2-18.0); MEAN CORPUSCULAR VOLUME 88 FL (80-99); PLATELET COUNT 173 K/UL (150-450); RED BLOOD COUNT 3.24 M/UL (4.70-6.10); RED CELL DISTRIBUTION WIDTH 18.8 % (11.6-14.8); WHITE BLOOD COUNT 12.3 K/UL (4.8-10.8)
[2018-12-03 06:07] LABS: ANION GAP 4 mmol/L (5-15); BLOOD UREA NITROGEN 29 mg/dL (7-18); CALCIUM 8.8 MG/DL (8.5-10.1); CARBON DIOXIDE 33 MMOL/L (21-32); CHLORIDE 104 MMOL/L (98-107); CREATININE 0.9 MG/DL (0.55-1.30); POTASSIUM 4.3 MMOL/L (3.5-5.1); SODIUM 141 MMOL/L (136-145)
--- NOTE | 2018-12-03 06:10 | NUR ---
NURSE NOTES: NO ACUTE DISTRESS NOTED AT THIS SHIFT.
--- NOTE | 2018-12-03 07:14 | NUR ---
NURSE NOTES: Received pt from ANN Bruner. Pt is A/Ox2-3; able to communicate needs. Denies discomfort or pain at this time. On 3LNC, Spo2 98%. Sinus Tachycardiac on laboratory monitor; HR 113. A febrile. Patient requested for ensure, will notify PMD. Left femoral TLC, asymptomatic and TKO. Bilateral breath sounds diminished. Bed locked, alarmed and in lowest position. Will continue plan of care.
--- NOTE | 2018-12-03 07:28 | NUR ---
HAND-OFF: Report given to ANN CORRIGAN.
--- NOTE | 2018-12-03 07:57 | Pulmonology Progress Note ---
Assessment/Plan Assessment/Plan IMPRESSION: 1. Respiratory failure. 2. Exacerbation of COPD. 3. Diabetes mellitus. 4. Hypertension. 5. Pulmonary edema DISCUSSION: Agree with broad-spectrum antibiotics and steroids. Extubated now X-rays reviewed; show pulmonary edema Off IV fluids Continue Lasix I will follow carefully. Subjective Interval Events: Saturating better on nasal canulae Constitutional: Reports: no symptoms Respiratory: Reports: no symptoms Cardiovascular: Reports: no symptoms Gastrointestinal/Abdominal: Reports: no symptoms Genitourinary: Reports: no symptoms Neurologic: Reports: no symptoms Allergies: Coded Allergies: No Known Allergies (Unverified , 10/17/18) Objective Last 24 Hour Vital Signs Date Time Temp Pulse Resp B/P (MAP) Pulse Ox O2 Delivery O2 Flow Rate FiO2 12/03/18 04:30 97.8 86 24 120/76 (91) 98 12/03/18 04:00 98.6 80 20 117/76 (90) 100 12/03/18 04:00 Nasal Cannula 3.0 12/03/18 04:00 3.0 12/03/18 04:00 77 12/03/18 03:45 82 17 100 Nasal Cannula 3.0 32 12/03/18 03:35 90 16 100 Nasal Cannula 3.0 32 12/03/18 03:00 98 14 116/60 (78) 100 12/03/18 02:00 79 16 137/79 (98) 100 12/03/18 01:00 91 18 122/72 (89) 100 12/03/18 00:00 3.0 12/03/18 00:00 98.6 91 20 116/67 (83) 100 12/03/18 00:00 97 12/03/18 00:00 Nasal Cannula 3.0 12/02/18 23:34 88 18 100 Nasal Cannula 3.0 32 12/02/18 23:22 101 17 98 Nasal Cannula 3.0 32 12/02/18 23:00 92 25 129/78 (95) 100 12/02/18 22:00 97 19 130/82 (98) 100 12/02/18 21:00 95 19 123/76 (92) 97 12/02/18 20:00 100 12/02/18 20:00 Nasal Cannula 3.0 12/02/18 20:00 3.0 12/02/18 20:00 99.0 103 19 119/70 (86) 97 12/02/18 19:16 84 19 100 Nasal Cannula 2.0 28 12/02/18 19:06 89 19 100 Nasal Cannula 3.0 32 12/02/18 19:00 89 19 122/69 (86) 100 12/02/18 18:00 74 15 132/79 (96) 100 12/02/18 17:28 88 18 100 2.0 28 12/02/18 17:00 81 16 129/73 (91) 100 12/02/18 16:00 98.3 89 17 136/79 (98) 100 12/02/18 16:00 80 12/02/18 16:00 3.0 12/02/18 16:00 Nasal Cannula 3.0 12/02/18 15:28 78 18 99 Nasal Cannula 2.0 28 12/02/18 15:27 83 16 97 21 12/02/18 15:22 76 16 96 Room Air 21 12/02/18 15:00 88 16 121/76 (91) 95 12/02/18 14:00 108 20 108/71 (83) 100 12/02/18 13:11 88 18 93 21 12/02/18 13:00 101 20 121/71 (88) 100 12/02/18 12:00 45 12/02/18 12:00 88 12/02/18 12:00 Venturi Mask 12/02/18 12:00 98.0 84 17 113/63 (80) 99 12/02/18 11:16 75 18 98 Venturi Mask 10.0 45 12/02/18 11:15 78 18 93 21 12/02/18 11:10 78 18 93 Room Air 21 12/02/18 11:00 79 18 140/78 (98) 100 12/02/18 10:00 77 15 119/58 (78) 100 12/02/18 09:26 88 18 98 10.0 45 12/02/18 09:00 86 17 105/59 (74) 97 12/02/18 08:47 85 16 97 Facial 25 12/02/18 08:00 Bi-pap 12/02/18 08:00 71 12/02/18 08:00 25 12/02/18 08:00 97.4 84 16 118/65 (82) 96 Intake and Output 12/02/18 12/03/18 19:00 07:00 Intake Total 1127.5 ml 290 ml Output Total 1710 ml 1475 ml Balance -582.5 ml -1185 ml Intake Oral 560 ml 290 ml IV Total 317.5 ml Tube Feeding 220 ml Other 30 ml Output Urine Total 1710 ml 1475 ml # Bowel Movements 1 General Appearance: no acute distress HEENT: normocephalic Respiratory/Chest: chest wall non-tender, decreased breath sounds Cardiovascular: normal peripheral pulses, normal rate Abdomen: normal bowel sounds, soft, non tender Laboratory Tests 12/02/18 09:15: Arterial Blood pH 7.370, Arterial Blood Partial Pressure CO2 42.1, Arterial Blood Partial Pressure O2 63.1L, Arterial Blood HCO3 23.8, Arterial Blood Oxygen Saturation 89.6*L, Arterial Blood Base Excess -1.4, Cameron Test Positive 12/02/18 12:40: White Blood Count 19.3H, Red Blood Count 3.60L, Hemoglobin 9.6L, Hematocrit 31.4L, Mean Corpuscular Volume 87, Mean Corpuscular Hemoglobin 26.7L, Mean Corpuscular Hemoglobin Concent 30.7L, Red Cell Distribution Width 19.1H, Platelet Count 185, Mean Platelet Volume 6.4L, Neutrophils (%) (Auto) , Lymphocytes (%) (Auto) , Monocytes (%) (Auto) , Eosinophils (%) (Auto) , Basophils (%) (Auto) , Differential Total Cells Counted 100, Neutrophils % ( Manual) 88H, Lymphocytes % (Manual) 3L, Monocytes % (Manual) 9, Eosinophils % ( Manual) 0, Basophils % (Manual) 0, Band Neutrophils 0, Platelet Estimate Adequate, Platelet Morphology Normal, Hypochromasia 2+, Anisocytosis 2+, Sodium Level 142, Potassium Level 3.6, Chloride Level 106, Carbon Dioxide Level 28, Anion Gap 8, Blood Urea Nitrogen 33H, Creatinine 0.8, Estimat Glomerular Filtration Rate , Glucose Level 124H, Calcium Level 8.7, Total Bilirubin 0.4, Aspartate Amino Transf (AST/SGOT) 24, Alanine Aminotransferase (ALT/SGPT) 42, Alkaline Phosphatase 50, Total Protein 6.6, Albumin 3.0L, Globulin 3.6, Albumin/ Globulin Ratio 0.8L 12/03/18 04:00: White Blood Count 12.3H, Red Blood Count 3.24L, Hemoglobin 8.7L, Hematocrit 28.4L, Mean Corpuscular Volume 88, Mean Corpuscular Hemoglobin 26.8L, Mean Corpuscular Hemoglobin Concent 30.6L, Red Cell Distribution Width 18.8H, Platelet Count 173, Mean Platelet Volume 6.9, Neutrophils (%) (Auto) , Lymphocytes (%) (Auto) , Monocytes (%) (Auto) , Eosinophils (%) (Auto) , Basophils (%) (Auto) , Neutrophils % (Manual) [Pending], Lymphocytes % (Manual) [Pending], Platelet Estimate [Pending], Platelet Morphology [Pending], Sodium Level 141, Potassium Level 4.3, Chloride Level 104, Carbon Dioxide Level 33H, Anion Gap 4L, Blood Urea Nitrogen 29H, Creatinine 0.9, Estimat Glomerular Filtration Rate , Glucose Level 127H, Calcium Level 8.8 Current Medications Medications (Trade) Dose Ordered Sig/Aimee Route PRN Reason Start Time Stop Time Status Last Admin Dose Admin Albuterol/ Ipratropium (Albuterol/ Ipratropium) 3 ml Q4HRT HHN 12/03/18 07:00 12/04/18 22:59 Cefepime HCl 1 gm/ Dextrose 55 ml @ 110 mls/hr EVERY 12 HOURS IVPB 12/03/18 09:00 12/06/18 22:59 Chlorhexidine Gluconate (Mayra-Hex 2%) 1 applic DAILY@2000 TOPIC 12/03/18 20:00 12/30/18 19:59 Furosemide (Lasix) 40 mg EVERY 12 HOURS IV 12/03/18 09:00 01/01/19 20:59 Heparin Sodium (Porcine) (Heparin 5000 units/ml) 5,000 units EVERY 12 HOURS SUBQ 12/03/18 09:00 12/30/18 08:59 Lorazepam (Ativan 2mg/ml 1ml) 1 mg Q4H PRN IV For Anxiety 12/03/18 04:30 12/07/18 08:29 Methylprednisolone Sodium Succinate (Solu-MEDROL) 20 mg EVERY 8 HOURS IVP 12/03/18 06:00 12/30/18 08:14 12/03/18 05:38 Metronidazole (Flagyl) 500 mg Q8HR NG 12/03/18 06:00 12/07/18 05:59 12/03/18 05:38 Pantoprazole (Protonix) 40 mg DAILY ORAL 12/03/18 09:00 12/30/18 08:59 Potassium Chloride (K-Dur) 20 meq DAILY ORAL 12/03/18 09:00 01/02/19 08:59 Abhijit Morris MD Dec 03, 2018 07:57
[2018-12-03] MEDS: Cefepime HCl 1 GM in D5W 55 ML IVPB SCH ×2 (08:28→20:31)
[2018-12-03] MEDS: Heparin 5000 units/ml inj SUBQ SCH ×2 (08:31→20:32)
--- NOTE | 2018-12-03 09:51 | Diagnostic Imaging Report ---
EXAM: XR Chest, 1 View CLINICAL HISTORY: ABN LABS TECHNIQUE: Frontal view of the chest. COMPARISON: Chest x-ray dated 12/01/18 FINDINGS: Lungs: Unchanged appearance of basilar atelectasis versus infiltrates. No new consolidation. Pleural space: Unremarkable. The costophrenic angles are sharp. No visible pneumothorax. Heart: Mild cardiomegaly Mediastinum: Unremarkable. Bones/joints: Degenerative changes throughout the visualized spine. Vasculature: Atherosclerotic calcifications within the aortic arch. Tubes, lines and devices: Telemetry leads overlie the thorax. IMPRESSION: 1. No significant interval change compared to the prior chest x-ray. 2. Unchanged appearance of basilar atelectasis versus infiltrates. No new consolidation.
--- NOTE | 2018-12-03 10:11 | NUR ---
NURSE NOTES: Received orders to add Ensure QD with breakfast per Dr. Stewart.
--- NOTE | 2018-12-03 12:57 | Infectious Diseases Prog Note ---
Assessment/Plan Assessment/Plan A; Pseudomonas pneumonia COPD exacerbation Hypercapnic respiratory failure DM HPN P: Continue Cefepime Subjective ROS Limited/Unobtainable: Yes Constitutional: Reports: no symptoms Respiratory: Reports: no symptoms Cardiovascular: Reports: no symptoms Gastrointestinal/Abdominal: Reports: no symptoms Musculoskeletal: Reports: pain Allergies: Coded Allergies: No Known Allergies (Unverified , 10/17/18) Objective Vital Signs Last 24 Hour Vital Signs Date Time Temp Pulse Resp B/P (MAP) Pulse Ox O2 Delivery O2 Flow Rate FiO2 12/03/18 10:54 78 18 100 Nasal Cannula 3.0 32 12/03/18 10:44 84 18 96 Nasal Cannula 3.0 32 12/03/18 08:11 83 18 100 Nasal Cannula 3.0 32 12/03/18 08:10 85 18 100 Nasal Cannula 3.0 32 12/03/18 08:00 3.0 12/03/18 08:00 105 12/03/18 08:00 88 16 94 Nasal Cannula 3.0 32 12/03/18 08:00 98.3 117 19 113/68 (83) 91 12/03/18 08:00 Nasal Cannula 3.0 12/03/18 04:30 97.8 86 24 120/76 (91) 98 12/03/18 04:00 98.6 80 20 117/76 (90) 100 12/03/18 04:00 Nasal Cannula 3.0 12/03/18 04:00 3.0 12/03/18 04:00 77 12/03/18 03:45 82 17 100 Nasal Cannula 3.0 32 12/03/18 03:35 90 16 100 Nasal Cannula 3.0 32 12/03/18 03:00 98 14 116/60 (78) 100 12/03/18 02:00 79 16 137/79 (98) 100 12/03/18 01:00 91 18 122/72 (89) 100 12/03/18 00:00 3.0 12/03/18 00:00 98.6 91 20 116/67 (83) 100 12/03/18 00:00 97 12/03/18 00:00 Nasal Cannula 3.0 12/02/18 23:34 88 18 100 Nasal Cannula 3.0 32 12/02/18 23:22 101 17 98 Nasal Cannula 3.0 32 12/02/18 23:00 92 25 129/78 (95) 100 12/02/18 22:00 97 19 130/82 (98) 100 12/02/18 21:00 95 19 123/76 (92) 97 12/02/18 20:00 100 12/02/18 20:00 Nasal Cannula 3.0 12/02/18 20:00 3.0 12/02/18 20:00 99.0 103 19 119/70 (86) 97 12/02/18 19:16 84 19 100 Nasal Cannula 2.0 28 12/02/18 19:06 89 19 100 Nasal Cannula 3.0 32 12/02/18 19:00 89 19 122/69 (86) 100 12/02/18 18:00 74 15 132/79 (96) 100 12/02/18 17:28 88 18 100 2.0 28 12/02/18 17:00 81 16 129/73 (91) 100 12/02/18 16:00 98.3 89 17 136/79 (98) 100 12/02/18 16:00 80 12/02/18 16:00 3.0 12/02/18 16:00 Nasal Cannula 3.0 12/02/18 15:28 78 18 99 Nasal Cannula 2.0 28 12/02/18 15:27 83 16 97 21 12/02/18 15:22 76 16 96 Room Air 21 12/02/18 15:00 88 16 121/76 (91) 95 12/02/18 14:00 108 20 108/71 (83) 100 12/02/18 13:11 88 18 93 21 12/02/18 13:00 101 20 121/71 (88) 100 Height (Feet): 5 Height (Inches): 7.00 Weight (Pounds): 113 HEENT: mucous membranes moist Respiratory/Chest: lungs clear Cardiovascular: normal rate Abdomen: soft, non tender Extremities: no edema Neurologic/Psychiatric: alert, responsive Musculoskeletal: atrophy Laboratory Tests Test 12/03/18 04:00 White Blood Count 12.3 K/UL (4.8-10.8) H Red Blood Count 3.24 M/UL (4.70-6.10) L Hemoglobin 8.7 G/DL (14.2-18.0) L Hematocrit 28.4 % (42.0-52.0) L Mean Corpuscular Volume 88 FL (80-99) Mean Corpuscular Hemoglobin 26.8 PG (27.0-31.0) L Mean Corpuscular Hemoglobin Concent 30.6 G/DL (32.0-36.0) L Red Cell Distribution Width 18.8 % (11.6-14.8) H Platelet Count 173 K/UL (150-450) Mean Platelet Volume 6.9 FL (6.5-10.1) Neutrophils (%) (Auto) % (45.0-75.0) Lymphocytes (%) (Auto) % (20.0-45.0) Monocytes (%) (Auto) % (1.0-10.0) Eosinophils (%) (Auto) % (0.0-3.0) Basophils (%) (Auto) % (0.0-2.0) Differential Total Cells Counted 100 Neutrophils % (Manual) 90 % (45-75) H Lymphocytes % (Manual) 4 % (20-45) L Monocytes % (Manual) 6 % (1-10) Eosinophils % (Manual) 0 % (0-3) Basophils % (Manual) 0 % (0-2) Band Neutrophils 0 % (0-8) Platelet Estimate Adequate Platelet Morphology Normal Hypochromasia 1+ Anisocytosis 1+ Sodium Level 141 MMOL/L (136-145) Potassium Level 4.3 MMOL/L (3.5-5.1) Chloride Level 104 MMOL/L (98-107) Carbon Dioxide Level 33 MMOL/L (21-32) H Anion Gap 4 mmol/L (5-15) L Blood Urea Nitrogen 29 mg/dL (7-18) H Creatinine 0.9 MG/DL (0.55-1.30) Estimat Glomerular Filtration Rate mL/min (>60) Glucose Level 127 MG/DL (74-106) H Calcium Level 8.8 MG/DL (8.5-10.1) Current Medications Medications (Trade) Dose Ordered Sig/Aimee Route PRN Reason Start Time Stop Time Status Last Admin Dose Admin Albuterol/ Ipratropium (Albuterol/ Ipratropium) 3 ml Q4HRT HHN 12/03/18 07:00 12/04/18 22:59 12/03/18 10:53 Cefepime HCl 1 gm/ Dextrose 55 ml @ 110 mls/hr EVERY 12 HOURS IVPB 12/03/18 09:00 12/06/18 22:59 12/03/18 08:28 Chlorhexidine Gluconate (Mayra-Hex 2%) 1 applic DAILY@2000 TOPIC 12/03/18 20:00 12/30/18 19:59 Furosemide (Lasix) 40 mg EVERY 12 HOURS IV 12/03/18 09:00 01/01/19 20:59 12/03/18 08:29 Heparin Sodium (Porcine) (Heparin 5000 units/ml) 5,000 units EVERY 12 HOURS SUBQ 12/03/18 09:00 12/30/18 08:59 12/03/18 08:31 Lorazepam (Ativan 2mg/ml 1ml) 1 mg Q4H PRN IV For Anxiety 12/03/18 04:30 12/07/18 08:29 Methylprednisolone Sodium Succinate (Solu-MEDROL) 20 mg EVERY 8 HOURS IVP 12/03/18 06:00 12/30/18 08:14 12/03/18 05:38 Metronidazole (Flagyl) 500 mg Q8HR NG 12/03/18 06:00 12/07/18 05:59 12/03/18 05:38 Pantoprazole (Protonix) 40 mg DAILY ORAL 12/03/18 09:00 12/30/18 08:59 12/03/18 08:28 Potassium Chloride (K-Dur) 20 meq DAILY ORAL 12/03/18 09:00 01/02/19 08:59 12/03/18 08:29 Jez Espinoza MD Dec 03, 2018 12:57
--- NOTE | 2018-12-03 13:50 | NUR ---
NURSE NOTES: Pt HR went up to 140's. BP stable, Pulse bounding, reports light headedness. EKG done. Notified Dr. Stewart and Dr. Grewal. Received orders from Dr. Stewart for STAT ABG and place patient on BIPAP now.
[2018-12-03] MEDS: LORazepam Inj 2mg/ml 1ml IV PRN ×2 (14:50→21:53)
--- NOTE | 2018-12-03 14:52 | NUR ---
NURSE NOTES: Patient seen agitated and restless. HR still over 140 after 30 mins of BIPAP. Will continue bipap and admin ativan 1mg IVP.
[2018-12-03] MEDS ORDERED: NS 275ml ONE (15:25)
--- NOTE | 2018-12-03 17:01 | NUR ---
CASE MANAGEMENT: REVIEW 12/03/2018 SI: RESPIRATORY DISTRESS. T 98.3 HR 117 RR 19 B/P 113/68 SATS 94% ON 3L/NC WBC 12.3 CO2 33 BUN 29 GLU 127 ABGs pCO2 50.6 HCO3 32.5 BE 7.1 IS: SOLU MEDROL IV Q8H CEFEPIME IV Q12H LASIX IV Q12H PROTONIX PO QD K DUR PO QD FLAGYL NG Q8H STEP DOWN UNIT STATUS DCP: PATIENT IS FROM [facility]
--- NOTE | 2018-12-03 18:50 | NUR ---
NURSE NOTES: HR in 90's now. Patient tolerated dinner meal well. Placed patient on BIPAP again. VSS.
--- NOTE | 2018-12-03 19:00 | Progress Note ---
DATE: 12/03/2018 SUBJECTIVE: There have been no overnight events. The patient was transferred out of the intensive care unit. He is currently on nasal cannula. He has no complaints. OBJECTIVE: VITAL SIGNS: Temperature 98 degrees, pulse is 102, blood pressure 111/69, respirations 16. GENERAL: The patient is disheveled, awake, not agitated. HEART: Regular. LUNGS: Clear. ABDOMEN: Soft. EXTREMITIES: Without clubbing or cyanosis. LABORATORY DATA: White count 12, hemoglobin 8.7, platelets 173. Sodium 141, potassium 4.3, BUN 29, creatinine is 0.4. ASSESSMENT: This is a 73-year-old male with COPD admitted with COPD exacerbation, pneumonia, respiratory failure, currently extubated now. PLAN: Wean steroids, p.r.n. diuresis, antibiotics. Monitor chest x-ray and blood gas. Compliance has been stressed. Varun Stewart M.D. DR: Anthony JOB#: [id number] CC:
--- NOTE | 2018-12-03 19:09 | NUR ---
NURSE NOTES: Received report from Tammy Conn RN. Patient is awake in bed, A/O x4. No s/s of acute distress noted. Sinus rhythm on radiation monitor. Saturating well on BIPAP settings: 14/4 @ 25%. Kimball catheter intact and draining well to gravity. Left femoral TLC, TKO, intact and patent. Bed locked in lowest position with side rails up x3. Call light left within reach. Will continue to monitor.
--- NOTE | 2018-12-03 19:09 | NUR ---
HAND-OFF: Report given to ANN Duque. No signs of distress noted.
[2018-12-03] MEDS: Dyna-Hex 2% Top Sol 2oz TOPIC SCH (20:31)
[2018-12-04] VITALS: BP 134/88
--- NOTE | 2018-12-04 03:15 | Progress Note ---
DATE: 12/03/2018 CARDIOLOGY PROGRESS NOTE SUBJECTIVE: The patient remains off ventilator following self-extubation. He has refused BiPAP support most of the time. OBJECTIVE: VITAL SIGNS: Blood pressure 120/76, pulse 86, respirations 24. Monitored rhythm sinus. LUNGS: Coarse breath sounds. Scattered rhonchi. Jugular venous elevation. No accessory muscle use. CARDIAC: Regular rhythm and rate. Normal S1, S2 with a fourth heart sound. ABDOMEN: Soft. EXTREMITIES: Trace edema. DIAGNOSTIC AND LABORATORY DATA: Chest x-ray today continues to reveal pulmonary edema, infiltrates, and atelectasis. White count 12 and hemoglobin 8.7. Potassium 4.3, BUN 29, creatinine 0.9. ABG, 7.42, 50, 80. Sputum positive for Pseudomonas and Vicki. IMPRESSION: 1. Pseudomonas pneumonia, status post respiratory failure. 2. Acute on chronic diastolic congestive heart failure. 3. Severe pulmonary hypertension. 4. COPD. 5. Paroxysmal bronchospasm. 6. Heroin dependence. PLAN: 1. Diuresis. 2. Antimicrobials. 3. Respiratory hygiene. 4. DVT and stress ulcer prophylaxis. 5. Steroid taper. 6. Inhaled bronchodilators. Justus Grewal M.D. DR: DIXON JOB#: [id number] CC:
[2018-12-04] MEDS: Albuterol/Ipratropium 3ml neb HHN SCH ×5 (03:22→19:25)
[2018-12-04 04:00] VITALS: BP 133/84
[2018-12-04] MEDS: Solu-MEDROL 40mg Inj IVP SCH ×3 (06:03→21:03)
[2018-12-04] MEDS: metroNIDAZOLE 500mg tab NG SCH (06:04)
[2018-12-04 06:44] LABS: HEMATOCRIT 30.5 % (42.0-52.0); HEMOGLOBIN 9.4 G/DL (14.2-18.0); MEAN CORPUSCULAR VOLUME 87 FL (80-99); PLATELET COUNT 189 K/UL (150-450); RED CELL DISTRIBUTION WIDTH 18.3 % (11.6-14.8)
--- NOTE | 2018-12-04 07:10 | NUR ---
HAND-OFF: Report given to Klarissa Aragon RN.
--- NOTE | 2018-12-04 07:13 | NUR ---
NURSE NOTES: Received Pt from ANN Duque in stable condition. Pt asleep in bed hooked to satellite project site monitor on 3L O2 NC. Skin alterations noted. Pt has a L femoral TLC. F/C noted draining yellow urine. Skin alterations noted. Bed is in lowest position, alarm on, side rails up x 3, call light within reach. Will continue malena monitor pt.
[2018-12-04 07:27] LABS: ALANINE AMINOTRANSFERASE 35 U/L (12-78); ALBUMIN 2.9 G/DL (3.4-5.0); ALBUMIN/GLOBULIN RATIO 0.8 (1.0-2.7); ALKALINE PHOSPHATASE 53 U/L (46-116); ANION GAP 4 mmol/L (5-15); ASPARTATE AMINO TRANSFERASE 19 U/L (15-37); BILIRUBIN,TOTAL 0.4 MG/DL (0.2-1.0); BLOOD UREA NITROGEN 30 mg/dL (7-18); CALCIUM 9.1 MG/DL (8.5-10.1); CARBON DIOXIDE 38 MMOL/L (21-32); CHLORIDE 97 MMOL/L (98-107); CREATININE 0.8 MG/DL (0.55-1.30); POTASSIUM 4.6 MMOL/L (3.5-5.1); SODIUM 139 MMOL/L (136-145)
[2018-12-04 08:00] VITALS: BP 106/62
[2018-12-04] MEDS: Cefepime HCl 1 GM in D5W 55 ML IVPB SCH (09:17)
[2018-12-04] MEDS: Heparin 5000 units/ml inj SUBQ SCH ×2 (09:28→21:04)
--- NOTE | 2018-12-04 09:35 | Pulmonology Progress Note ---
Assessment/Plan Assessment/Plan IMPRESSION: 1. Respiratory failure. 2. Exacerbation of COPD. 3. Diabetes mellitus. 4. Hypertension. 5. Pulmonary edema 6. Pneumonia DISCUSSION: Agree with broad-spectrum antibiotics and steroids. Extubated now X-rays reviewed; shows persistent pulmonary edema Off IV fluids Continue Lasix I will add acetazolamide (Has increasing HCO3 and azotemia) I will follow carefully. Subjective Interval Events: Remains on low flow O2; in SDU Constitutional: Reports: no symptoms HEENT: Repors: no symptoms Respiratory: Reports: no symptoms Cardiovascular: Reports: no symptoms Gastrointestinal/Abdominal: Reports: no symptoms Genitourinary: Reports: no symptoms Neurologic: Reports: no symptoms Allergies: Coded Allergies: No Known Allergies (Unverified , 10/17/18) Objective Last 24 Hour Vital Signs Date Time Temp Pulse Resp B/P (MAP) Pulse Ox O2 Delivery O2 Flow Rate FiO2 12/04/18 07:44 82 18 99 Nasal Cannula 3.0 32 12/04/18 07:36 80 18 97 Nasal Cannula 3.0 32 12/04/18 04:00 3.0 12/04/18 04:00 Nasal Cannula 3.0 12/04/18 04:00 97.6 82 13 133/84 (100) 97 12/04/18 03:39 84 12/04/18 03:22 Nasal Cannula 3.0 32 12/04/18 03:22 Nasal Cannula 3.0 32 12/04/18 00:00 Nasal Cannula 3.0 12/04/18 00:00 98.0 109 16 134/88 (103) 96 12/04/18 00:00 3.0 12/03/18 23:42 94 12/03/18 23:22 Nasal Cannula 3.0 32 12/03/18 23:22 Nasal Cannula 3.0 32 12/03/18 22:05 82 18 99 Nasal Cannula 3.0 32 12/03/18 21:55 80 18 97 Nasal Cannula 3.0 32 12/03/18 20:00 Bi-pap 12/03/18 20:00 25 12/03/18 20:00 98.2 116 21 131/77 (95) 94 12/03/18 19:27 114 12/03/18 18:34 115 18 97 Facial 25 12/03/18 16:00 Nasal Cannula 3.0 12/03/18 16:00 110 20 132/89 (103) 99 12/03/18 16:00 116 12/03/18 15:53 119 22 98 Facial 25 12/03/18 15:12 Bi-pap 25 12/03/18 15:12 127 18 95 Bi-pap 25 12/03/18 13:50 45 12/03/18 13:48 127 19 95 Facial 25 12/03/18 13:31 134 19 126/72 (90) 91 12/03/18 12:00 3.0 12/03/18 12:00 83 12/03/18 12:00 Nasal Cannula 3.0 12/03/18 12:00 102 16 111/69 (83) 96 12/03/18 10:54 78 18 100 Nasal Cannula 3.0 32 12/03/18 10:44 84 18 96 Nasal Cannula 3.0 32 Intake and Output 12/03/18 12/04/18 19:00 07:00 Intake Total 295 ml Output Total 2500 ml Balance -2205 ml Intake Oral 240 ml IV Total 55 ml Output Urine Total 2500 ml # Bowel Movements 1 General Appearance: no acute distress HEENT: normocephalic Respiratory/Chest: chest wall non-tender, lungs clear Cardiovascular: normal peripheral pulses, normal rate Abdomen: normal bowel sounds, soft, non tender Laboratory Tests 12/03/18 15:20: Arterial Blood pH 7.425, Arterial Blood Partial Pressure CO2 50.6H, Arterial Blood Partial Pressure O2 79.8, Arterial Blood HCO3 32.5H, Arterial Blood Oxygen Saturation 95.3, Arterial Blood Base Excess 7.1H, Cameron Test Positive 12/04/18 05:45: White Blood Count 11.0H, Red Blood Count 3.50L, Hemoglobin 9.4L, Hematocrit 30.5L, Mean Corpuscular Volume 87, Mean Corpuscular Hemoglobin 26.8L, Mean Corpuscular Hemoglobin Concent 30.8L, Red Cell Distribution Width 18.3H, Platelet Count 189, Mean Platelet Volume 6.8, Neutrophils (%) (Auto) , Lymphocytes (%) (Auto) , Monocytes (%) (Auto) , Eosinophils (%) (Auto) , Basophils (%) (Auto) , Sodium Level 139, Potassium Level 4.6, Chloride Level 97L , Carbon Dioxide Level 38H, Anion Gap 4L, Blood Urea Nitrogen 30H, Creatinine 0.8, Estimat Glomerular Filtration Rate , Glucose Level 143H, Calcium Level 9.1 , Magnesium Level 1.9, Total Bilirubin 0.4, Aspartate Amino Transf (AST/SGOT) 19 , Alanine Aminotransferase (ALT/SGPT) 35, Alkaline Phosphatase 53, Pro-B-Type Natriuretic Peptide 2164H, Total Protein 6.5, Albumin 2.9L, Globulin 3.6, Albumin/Globulin Ratio 0.8L Current Medications Medications (Trade) Dose Ordered Sig/Aimee Route PRN Reason Start Time Stop Time Status Last Admin Dose Admin Albuterol/ Ipratropium (Albuterol/ Ipratropium) 3 ml Q4HRT HHN 12/03/18 07:00 12/04/18 22:59 12/04/18 07:36 Cefepime HCl 1 gm/ Dextrose 55 ml @ 110 mls/hr EVERY 12 HOURS IVPB 12/03/18 09:00 12/06/18 22:59 12/04/18 09:17 Chlorhexidine Gluconate (Mayra-Hex 2%) 1 applic DAILY@2000 TOPIC 12/03/18 20:00 12/30/18 19:59 12/03/18 20:31 Furosemide (Lasix) 40 mg EVERY 12 HOURS IV 12/03/18 09:00 01/01/19 20:59 12/04/18 09:10 Heparin Sodium (Porcine) (Heparin 5000 units/ml) 5,000 units EVERY 12 HOURS SUBQ 12/03/18 09:00 12/30/18 08:59 12/04/18 09:28 Lorazepam (Ativan 2mg/ml 1ml) 1 mg Q4H PRN IV For Anxiety 12/03/18 04:30 12/07/18 08:29 12/03/18 21:53 Methylprednisolone Sodium Succinate (Solu-MEDROL) 20 mg EVERY 8 HOURS IVP 12/03/18 06:00 12/30/18 08:14 12/04/18 06:03 Metronidazole (Flagyl) 500 mg Q8HR ORAL 12/04/18 14:00 12/11/18 13:59 Pantoprazole (Protonix) 40 mg DAILY ORAL 12/03/18 09:00 12/30/18 08:59 12/04/18 09:17 Potassium Chloride (K-Dur) 20 meq DAILY ORAL 12/03/18 09:00 01/02/19 08:59 12/04/18 09:20 Abhijit Morris MD Dec 04, 2018 09:35
--- NOTE | 2018-12-04 11:12 | General Progress Note ---
Assessment/Plan Problem List: (1) Atrial flutter ICD Codes: I48.92 - Unspecified atrial flutter SNOMED: 7104659 (2) CHF (congestive heart failure) ICD Codes: I50.9 - Heart failure, unspecified SNOMED: 39205908 (3) Hyperglycemia ICD Codes: R73.9 - Hyperglycemia, unspecified SNOMED: 36187606 (4) Abdominal pain ICD Codes: R10.9 - Unspecified abdominal pain SNOMED: 72773684 (5) Fall ICD Codes: W19.XXXA - Unspecified fall, initial encounter SNOMED: 4851746, 489220733 (6) Tachycardia ICD Codes: R00.0 - Tachycardia, unspecified SNOMED: 1362496 (7) COPD exacerbation ICD Codes: J44.1 - Chronic obstructive pulmonary disease with (acute) exacerbation SNOMED: 997649271, 279545491 (8) Respiratory failure ICD Codes: J96.90 - Respiratory failure, unspecified, unspecified whether with hypoxia or hypercapnia SNOMED: 733832284 Qualifiers: Qualified Codes: J96.02 - Acute respiratory failure with hypercapnia Status: stable Assessment/Plan cont current rx o2 bipap as needed resp care abx steroids pt/ot monitor abg Subjective Allergies: Coded Allergies: No Known Allergies (Unverified , 10/17/18) Subjective no complaints. on nasal cannula. no new complaints. labs noted. denies sob Objective Last 24 Hour Vital Signs Date Time Temp Pulse Resp B/P (MAP) Pulse Ox O2 Delivery O2 Flow Rate FiO2 12/04/18 08:00 91 12/04/18 08:00 Nasal Cannula 3.0 12/04/18 08:00 3.0 12/04/18 08:00 97.3 92 18 106/62 (77) 94 12/04/18 07:44 82 18 99 Nasal Cannula 3.0 32 12/04/18 07:36 80 18 97 Nasal Cannula 3.0 32 12/04/18 04:00 3.0 12/04/18 04:00 Nasal Cannula 3.0 12/04/18 04:00 97.6 82 13 133/84 (100) 97 12/04/18 03:39 84 12/04/18 03:22 Nasal Cannula 3.0 32 12/04/18 03:22 Nasal Cannula 3.0 32 12/04/18 00:00 Nasal Cannula 3.0 12/04/18 00:00 98.0 109 16 134/88 (103) 96 12/04/18 00:00 3.0 12/03/18 23:42 94 12/03/18 23:22 Nasal Cannula 3.0 32 12/03/18 23:22 Nasal Cannula 3.0 32 12/03/18 22:05 82 18 99 Nasal Cannula 3.0 32 12/03/18 21:55 80 18 97 Nasal Cannula 3.0 32 12/03/18 20:00 Bi-pap 12/03/18 20:00 25 12/03/18 20:00 98.2 116 21 131/77 (95) 94 12/03/18 19:27 114 12/03/18 18:34 115 18 97 Facial 25 12/03/18 16:00 Nasal Cannula 3.0 12/03/18 16:00 110 20 132/89 (103) 99 12/03/18 16:00 116 12/03/18 15:53 119 22 98 Facial 25 12/03/18 15:12 Bi-pap 25 12/03/18 15:12 127 18 95 Bi-pap 25 12/03/18 13:50 45 12/03/18 13:48 127 19 95 Facial 25 12/03/18 13:31 134 19 126/72 (90) 91 12/03/18 12:00 3.0 12/03/18 12:00 83 12/03/18 12:00 Nasal Cannula 3.0 12/03/18 12:00 102 16 111/69 (83) 96 Intake and Output 12/03/18 12/04/18 19:00 07:00 Intake Total 295 ml Output Total 2500 ml Balance -2205 ml Intake Oral 240 ml IV Total 55 ml Output Urine Total 2500 ml # Bowel Movements 1 Laboratory Tests 12/03/18 15:20: Arterial Blood pH 7.425, Arterial Blood Partial Pressure CO2 50.6H, Arterial Blood Partial Pressure O2 79.8, Arterial Blood HCO3 32.5H, Arterial Blood Oxygen Saturation 95.3, Arterial Blood Base Excess 7.1H, Cameron Test Positive 12/04/18 05:45: White Blood Count 11.0H, Red Blood Count 3.50L, Hemoglobin 9.4L, Hematocrit 30.5L, Mean Corpuscular Volume 87, Mean Corpuscular Hemoglobin 26.8L, Mean Corpuscular Hemoglobin Concent 30.8L, Red Cell Distribution Width 18.3H, Platelet Count 189, Mean Platelet Volume 6.8, Neutrophils (%) (Auto) , Lymphocytes (%) (Auto) , Monocytes (%) (Auto) , Eosinophils (%) (Auto) , Basophils (%) (Auto) , Sodium Level 139, Potassium Level 4.6, Chloride Level 97L , Carbon Dioxide Level 38H, Anion Gap 4L, Blood Urea Nitrogen 30H, Creatinine 0.8, Estimat Glomerular Filtration Rate , Glucose Level 143H, Calcium Level 9.1 , Magnesium Level 1.9, Total Bilirubin 0.4, Aspartate Amino Transf (AST/SGOT) 19 , Alanine Aminotransferase (ALT/SGPT) 35, Alkaline Phosphatase 53, Pro-B-Type Natriuretic Peptide 2164H, Total Protein 6.5, Albumin 2.9L, Globulin 3.6, Albumin/Globulin Ratio 0.8L Height (Feet): 5 Height (Inches): 7.00 Weight (Pounds): 99 General Appearance: WD/WN, alert Cardiovascular: normal rate Respiratory/Chest: chest wall non-tender, lungs clear, normal breath sounds Abdomen: normal bowel sounds, non tender, soft, no organomegaly Edema: no edema noted Arm (L), no edema noted Arm (R), no edema noted Leg (L), no edema noted Leg (R), no edema noted Pedal (L), no edema noted Pedal (R), no edema noted Generalized Neurologic: hand molder meat II-XII grossly normal, alert, oriented x 3 Varun Stewart MD Dec 04, 2018 11:12
--- NOTE | 2018-12-04 11:48 | NUR ---
ST NOTE: BEDSIDE SWALLOW EVAL RECEIVED BEDSIDE SWALLOW EVAL CHART REVIEWED PRIOR THE EVALUATION PT IS A 73-YEAR-OLD MALE WHO WAS ADMITTED DUE TO RESPIRATORY DISTRESS AND WAS INTUBATED ON 11/28/18 AND SELF EXTUBATED ON 12/01/18. DYSPHAGIA RISK FACTORS: SEVERE COPD, CHF, HTN, PSYCH(MAJOR DEPRESSIVE DISORDER, SUBSTANCE ABUSE), H/O NONCOMPLIANCE. CXR: WORSENING BASILAR LUNG DISEASE PROBABLY ATELECTASIS THOUGH PNA, IS NOT EXCLUDED. R-LOWER INFILTRATE SUSPICION OF PNA. PLOF: PT RESIDES AT SNF. PER CHART, PT WAS ON KANG REGULAR WITH THIN LIQUID. NO POLST WAS NOTED. CURRENT STATUS: PT SEEN AT BEDSIDE IN AM. ALERT, REQUIRED MAX ENCOURAGEMENT TO PARTICIPATE. PT WITH NC(3L), OXYGEN LEVEL:94-99 HEART RATE: IN 110-120s CURRENTLY, PT IS ON NECTAR THICK SOUP DIET. GIVEN PO TRIALS: ICE-CHIPS(TSP), THIN LIQUIDS(TSP), NECTAR THICK(TSP), PUREE(TSP) AND CRAKCER X 1. INITIAL IMPRESSION: PROBABLE MILD TO MODERATE AND POSSIBLE WORSENED OROPHARYNGEAL DYSPHAGIA SLOW MASTICATION WAS NOTED SECONDARY TO EDENTULOUS, MILDLY INCREASED ORAL TRANSIT TIME AND OROPHARYNGEAL TRANSIT TIME FAIR LARYNGEAL ELEVATION, NO OVERT S/S OF ASPIRATION. GIVEN PT HAS H/O OF SEVERE COPD, (SILENT) ASPIRATION RISK IS NOT EXCLUDED. RECOMMENDATIONS: 1. CONTINUE ORAL DIET CHANGED DIET TO CARDIAC MOIST PUREE WITH NECTAR THICK LIQUIDS. 2. STRICT ASPIRATION PRECAUTIONS WITH DIRECT SUPERVISION 3. MODIFIED BARIUM SWALLOW STUDY IP OR OP. 4. ADVANCED DIET TOLERATED. D/W PT AND JEREMIAS JUAREZ. POSTED ASPIRATION PRECAUTIONS SIGN.
[2018-12-04 12:00] VITALS: BP 108/70
--- NOTE | 2018-12-04 12:08 | Infectious Diseases Prog Note ---
Assessment/Plan Assessment/Plan antibiotics : cefepime A 1. pseudomonas pneumonia 2. COPD 3. diabetes mellitus 4. hypertension P 1. continue cefepime 2. will follow up cultures Subjective Constitutional: Denies: fever, chills Respiratory: Denies: shortness of breath, dry cough Gastrointestinal/Abdominal: Denies: nausea, vomiting, diarrhea Musculoskeletal: Denies: pain Allergies: Coded Allergies: No Known Allergies (Unverified , 10/17/18) Objective Vital Signs Last 24 Hour Vital Signs Date Time Temp Pulse Resp B/P (MAP) Pulse Ox O2 Delivery O2 Flow Rate FiO2 12/04/18 11:30 Nasal Cannula 12/04/18 11:30 Nasal Cannula 12/04/18 08:00 91 12/04/18 08:00 Nasal Cannula 3.0 12/04/18 08:00 3.0 12/04/18 08:00 97.3 92 18 106/62 (77) 94 12/04/18 07:44 82 18 99 Nasal Cannula 3.0 32 12/04/18 07:36 80 18 97 Nasal Cannula 3.0 32 12/04/18 04:00 3.0 12/04/18 04:00 Nasal Cannula 3.0 12/04/18 04:00 97.6 82 13 133/84 (100) 97 12/04/18 03:39 84 12/04/18 03:22 Nasal Cannula 3.0 32 12/04/18 03:22 Nasal Cannula 3.0 32 12/04/18 00:00 Nasal Cannula 3.0 12/04/18 00:00 98.0 109 16 134/88 (103) 96 12/04/18 00:00 3.0 12/03/18 23:42 94 12/03/18 23:22 Nasal Cannula 3.0 32 12/03/18 23:22 Nasal Cannula 3.0 32 12/03/18 22:05 82 18 99 Nasal Cannula 3.0 32 12/03/18 21:55 80 18 97 Nasal Cannula 3.0 32 12/03/18 20:00 Bi-pap 12/03/18 20:00 25 12/03/18 20:00 98.2 116 21 131/77 (95) 94 12/03/18 19:27 114 12/03/18 18:34 115 18 97 Facial 25 12/03/18 16:00 Nasal Cannula 3.0 12/03/18 16:00 110 20 132/89 (103) 99 12/03/18 16:00 116 12/03/18 15:53 119 22 98 Facial 25 12/03/18 15:12 Bi-pap 25 12/03/18 15:12 127 18 95 Bi-pap 25 12/03/18 13:50 45 12/03/18 13:48 127 19 95 Facial 25 12/03/18 13:31 134 19 126/72 (90) 91 Height (Feet): 5 Height (Inches): 7.00 Weight (Pounds): 99 Respiratory/Chest: lungs clear Cardiovascular: normal rate, regular rhythm, no gallop/murmur Abdomen: soft, non tender Extremities: no edema Laboratory Tests Test 12/03/18 15:20 12/04/18 05:45 Arterial Blood pH 7.425 (7.350-7.450) Arterial Blood Partial Pressure CO2 50.6 mmHg (35.0-45.0) H Arterial Blood Partial Pressure O2 79.8 mmHg (75.0-100.0) Arterial Blood HCO3 32.5 mmol/L (22.0-26.0) H Arterial Blood Oxygen Saturation 95.3 % (95-100) Arterial Blood Base Excess 7.1 (-2-2) H Cameron Test Positive White Blood Count 11.0 K/UL (4.8-10.8) H Red Blood Count 3.50 M/UL (4.70-6.10) L Hemoglobin 9.4 G/DL (14.2-18.0) L Hematocrit 30.5 % (42.0-52.0) L Mean Corpuscular Volume 87 FL (80-99) Mean Corpuscular Hemoglobin 26.8 PG (27.0-31.0) L Mean Corpuscular Hemoglobin Concent 30.8 G/DL (32.0-36.0) L Red Cell Distribution Width 18.3 % (11.6-14.8) H Platelet Count 189 K/UL (150-450) Mean Platelet Volume 6.8 FL (6.5-10.1) Neutrophils (%) (Auto) % (45.0-75.0) Lymphocytes (%) (Auto) % (20.0-45.0) Monocytes (%) (Auto) % (1.0-10.0) Eosinophils (%) (Auto) % (0.0-3.0) Basophils (%) (Auto) % (0.0-2.0) Sodium Level 139 MMOL/L (136-145) Potassium Level 4.6 MMOL/L (3.5-5.1) Chloride Level 97 MMOL/L (98-107) L Carbon Dioxide Level 38 MMOL/L (21-32) H Anion Gap 4 mmol/L (5-15) L Blood Urea Nitrogen 30 mg/dL (7-18) H Creatinine 0.8 MG/DL (0.55-1.30) Estimat Glomerular Filtration Rate mL/min (>60) Glucose Level 143 MG/DL (74-106) H Calcium Level 9.1 MG/DL (8.5-10.1) Magnesium Level 1.9 MG/DL (1.8-2.4) Total Bilirubin 0.4 MG/DL (0.2-1.0) Aspartate Amino Transf (AST/SGOT) 19 U/L (15-37) Alanine Aminotransferase (ALT/SGPT) 35 U/L (12-78) Alkaline Phosphatase 53 U/L (46-116) Pro-B-Type Natriuretic Peptide 2164 pg/mL (0-125) H Total Protein 6.5 G/DL (6.4-8.2) Albumin 2.9 G/DL (3.4-5.0) L Globulin 3.6 g/dL Albumin/Globulin Ratio 0.8 (1.0-2.7) L Current Medications Medications (Trade) Dose Ordered Sig/Aimee Route PRN Reason Start Time Stop Time Status Last Admin Dose Admin Acetazolamide (Diamox) 250 mg FOUR TIMES A DAY ORAL 12/04/18 09:45 01/03/19 09:44 12/04/18 10:46 Albuterol/ Ipratropium (Albuterol/ Ipratropium) 3 ml Q4HRT HHN 12/03/18 07:00 12/04/18 22:59 12/04/18 07:36 Cefepime HCl 1 gm/ Dextrose 55 ml @ 110 mls/hr EVERY 12 HOURS IVPB 12/03/18 09:00 12/06/18 22:59 12/04/18 09:17 Chlorhexidine Gluconate (Mayra-Hex 2%) 1 applic DAILY@2000 TOPIC 12/03/18 20:00 12/30/18 19:59 12/03/18 20:31 Furosemide (Lasix) 40 mg EVERY 12 HOURS IV 12/03/18 09:00 01/01/19 20:59 12/04/18 09:10 Heparin Sodium (Porcine) (Heparin 5000 units/ml) 5,000 units EVERY 12 HOURS SUBQ 12/03/18 09:00 12/30/18 08:59 12/04/18 09:28 Lorazepam (Ativan 2mg/ml 1ml) 1 mg Q4H PRN IV For Anxiety 12/03/18 04:30 12/07/18 08:29 12/03/18 21:53 Methylprednisolone Sodium Succinate (Solu-MEDROL) 20 mg EVERY 8 HOURS IVP 12/03/18 06:00 12/30/18 08:14 12/04/18 06:03 Metronidazole (Flagyl) 500 mg Q8HR ORAL 12/04/18 14:00 12/11/18 13:59 Pantoprazole (Protonix) 40 mg DAILY ORAL 12/03/18 09:00 12/30/18 08:59 12/04/18 09:17 Potassium Chloride (K-Dur) 20 meq DAILY ORAL 12/03/18 09:00 01/02/19 08:59 12/04/18 09:20 Jessy Zabala MD Dec 04, 2018 12:08
--- NOTE | 2018-12-04 13:02 | Cardiology Report ---
APPROVED REPORT EKG Measurement Heart [id number] Sinus tachycardia with occasional premature ventricular complexes Right axis deviation Abnormal ECG
[2018-12-04] MEDS: metroNIDAZOLE 500mg tab ORAL SCH ×2 (13:38→21:01)
--- NOTE | 2018-12-04 13:53 | NUR ---
NURSE NOTES: Diamox 250mg PO unavailable in Pyxis for 1300. Contacted Shubham from pharmacy and instructed to reschedule for one time dose at [address] Morris. 1300 dose will be not be given.
--- NOTE | 2018-12-04 15:13 | NUR ---
RD ASSESSMENT & RECOMMENDATIONS SEE CARE ACTIVITY FOR COMPLETE ASSESSMENT DAILY ESTIMATED NEEDS: Needs based on Underweight, wound, critical care, HIV+, 48.6kg 30-35 kcals/kg 7612-9012 total kcals 1.25-2 g protein/kg 61-97 g total protein 25-30 mL/kg 9032-3485 total fluid mLs NUTRITION DIAGNOSIS: 1) Increased kcal and protein needs r/t wasting, HIV, underweight status, and wound healing as evidenced by moderate to severe generalized muscle and fat wasting, BMI 16.3, pt is 69% of [place] Body Weight, HIV+, pt w/ BL heels stage 1 wounds. 2) Swallowing difficulty r/t respiratory status as evidenced by pt is S/p oral intubation, - s/p extubation, now on puree texture w/ NTL. CURRENT DIET: Now cardiac puree w/ NTL PO DIET RECOMMENDATIONS: Rec to liberalized diet to Low Na (texture per NAIL SPECIALIST) ADDITIONAL RECOMMENDATIONS: * RECALIBRATE BED SCALE-> 7# difference from last adm 2 days ago * Monitor BG on solumedrol/ need for SSI, carb controlled diet, h/o DM * Add Ensure BID (change to Glucerna BID w/ elev BG) * Wound care: add MIMI BID + MVI x1 . .
[2018-12-04 16:00] VITALS: BP 106/73
--- NOTE | 2018-12-04 16:28 | NUR ---
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
--- NOTE | 2018-12-04 16:47 | Diagnostic Imaging Report ---
APPROVED REPORT CPT Code: 58119 Present Symptoms Shortness of breath Comments: Hx of left CFV line BILATERAL: Imaging reveals a patent deep venous system bilaterally. There is no evidence of thrombus within the common femoral, superficial femoral, popliteal or tibial segments. The greater saphenous veins are within normal limits. Doppler indicates normal spontaneous flow within these segments.
--- NOTE | 2018-12-04 19:00 | NUR ---
NURSE NOTES: Left a message for Dr Grewal that pt briefly went in and out of Afib HR 100-125 with frequent PVCs and PJCs per 5 lead teletypesetter monitor. Completed a 12 lead EKG and read SR w/PACs HR 94. Pt is asymptomatic, no cardiopulmonary distress noted. BP 111/76 SaO2 96% on 3L NC, AAOx4.
--- NOTE | 2018-12-04 19:40 | NUR ---
HAND-OFF: Report given to ANN Ortiz in stable condition. Addendum: 12/04/18 at 1945 by Savanna Aragon RN Amendment: Pt is in stable condition.
--- NOTE | 2018-12-04 19:41 | NUR ---
NURSE NOTES: BEDSIDE REPORT RECEIVED FROM ANN MCDOWELL. PT IS X4, ABLE TO MAKE NEEDS KNOWN. 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 ON PREVIOUS SHIFT PT HAD AN EPISODE OF AFIB/PVC/PJCS/ST HIGHEST OF 130. RN LEFT MD MCLEOD A MESSAGE BUT NO RESPONSE ON MY SHIFT. NO FOLLOW UP AM LABS ORDERED. PT IS ASYMPTOMATIC W/ NO S/S OF DISTRESS. WILL FOLLOW UP W/ MD REGARDING LABS/ORDERS. 3L NC TOLERATING WELL. SKIN IS CLEAN AND DRY, DRESSINGS INTACT. L/FEMORAL TLC ASYMPTOMATIC. BED IS LOCKED IN LOWEST POSITION, SR X3, CALL YANES W/ IN REACH, BED ALARM ON. WILL CONTINUE TO MONITOR AND FOLLOW W/ PLAN OF CARE.
[2018-12-04 20:00] VITALS: BP 107/77
[2018-12-04] MEDS: Dyna-Hex 2% Top Sol 2oz TOPIC SCH (21:00)
[2018-12-05] VITALS: BP 116/78
--- NOTE | 2018-12-05 01:45 | Progress Note ---
DATE: 12/04/2018 CARDIOLOGY PROGRESS NOTE SUBJECTIVE: The patient remains off ventilator support. No respiratory distress. Some congestion. On steroids and BiPAP p.r.n. OBJECTIVE: VITAL SIGNS: Blood pressure 106/62, pulse 92, and respirations 18. Monitor, sinus with frequent atrial ectopics. LUNGS: Coarse breath sounds. Rhonchi. Few wheezes. HEART: Regular rhythm and rate. Normal S1, S2. ABDOMEN: Soft. EXTREMITIES: No edema. LABORATORY DATA: Labs are noted with white count 11 and hemoglobin 9.4. Potassium 4.6, BUN 30, and creatinine 0.8. Magnesium 1.9. Pro-natriuretic peptide 2100. IMPRESSION: 1. Acute on chronic diastolic and systolic congestive heart failure. 2. Chronic obstructive pulmonary disease exacerbation. 3. Status post respiratory failure. 4. Aspiration pneumonia. 5. Pseudomonas pneumonia. 6. Contraction alkalosis. 7. Paroxysmal atrial fibrillation. PLAN: 1. Add acetazolamide. 2. Continue antimicrobials. 3. Respiratory hygiene. 4. BiPAP as needed. 5. Cautious diuresis. 6. Cardizem for rate control. 7. No plans for anticoagulation at this time due to increased bleeding risks. Justus Grewal M.D. DR: BRIDGET JOB#: [id number] CC:
[2018-12-05 04:00] VITALS: BP 121/74
[2018-12-05] MEDS: Solu-MEDROL 40mg Inj IVP SCH ×3 (05:26→21:01)
[2018-12-05] MEDS: metroNIDAZOLE 500mg tab ORAL SCH ×3 (05:26→21:01)
--- NOTE | 2018-12-05 07:14 | NUR ---
HAND-OFF: Report given to ANN LINDSEY.
--- NOTE | 2018-12-05 07:15 | NUR ---
NURSE NOTES: Report received from Cynthia Chen RN.Pt awake,alert sitting up on bed eating breakfast,noted no resp distress denies any c/o pain or discomfort,SR on the monitor,Kimball cath to BSD draining yellow,IV site to RT Femoral TLC intact,skin warm and dry,SR up x2 call gonzalez within reach at bedside,HOB elevated ,bed lock in lowest position will continue with plans of care.
[2018-12-05 08:00] VITALS: BP 128/83
[2018-12-05] MEDS: Heparin 5000 units/ml inj SUBQ SCH ×2 (08:51→21:11)
[2018-12-05] MEDS ORDERED: Cefepime HCl 1 GM in D5W 55 ML IVPB SCH (09:00)
--- NOTE | 2018-12-05 10:14 | Infectious Diseases Prog Note ---
Assessment/Plan Assessment/Plan antibiotics : cefepime A 1. pseudomonas pneumonia 2. COPD 3. diabetes mellitus 4. hypertension P 1. continue cefepime 3 more days 2. will follow up cultures Subjective Constitutional: Denies: fever, chills Respiratory: Denies: shortness of breath, dry cough Gastrointestinal/Abdominal: Denies: nausea, vomiting, diarrhea Musculoskeletal: Denies: pain Allergies: Coded Allergies: No Known Allergies (Unverified , 10/17/18) Objective Vital Signs Last 24 Hour Vital Signs Date Time Temp Pulse Resp B/P (MAP) Pulse Ox O2 Delivery O2 Flow Rate FiO2 12/05/18 07:20 Nasal Cannula 3.0 32 12/05/18 07:20 97 Nasal Cannula 3.0 32 12/05/18 04:00 97.7 89 16 121/74 (90) 99 12/05/18 04:00 83 12/05/18 04:00 3.0 12/05/18 04:00 Nasal Cannula 3.0 12/05/18 00:00 Nasal Cannula 3.0 12/05/18 00:00 98.4 100 25 116/78 (91) 96 12/05/18 00:00 3.0 12/05/18 00:00 95 12/04/18 23:02 Nasal Cannula 3.0 32 12/04/18 23:02 Nasal Cannula 3.0 32 12/04/18 20:00 3.0 12/04/18 20:00 101 12/04/18 20:00 98.6 107 22 107/77 (87) 97 12/04/18 20:00 Nasal Cannula 3.0 12/04/18 19:34 104 20 99 Nasal Cannula 3.0 32 12/04/18 19:24 Nasal Cannula 3.0 32 12/04/18 19:24 101 17 98 Nasal Cannula 3.0 32 12/04/18 19:24 98 Nasal Cannula 3.0 32 12/04/18 16:00 97.9 95 22 106/73 (84) 98 12/04/18 16:00 Nasal Cannula 3.0 12/04/18 16:00 93 12/04/18 16:00 3.0 12/04/18 15:40 82 18 99 Nasal Cannula 3.0 32 12/04/18 15:31 82 18 97 Nasal Cannula 3.0 32 12/04/18 12:00 97.7 106 22 108/70 (83) 96 12/04/18 12:00 Nasal Cannula 3.0 12/04/18 12:00 101 12/04/18 12:00 3.0 12/04/18 11:30 Nasal Cannula 12/04/18 11:30 Nasal Cannula Height (Feet): 5 Height (Inches): 7.00 Weight (Pounds): 98 Respiratory/Chest: lungs clear Cardiovascular: normal rate, regular rhythm, no gallop/murmur Abdomen: soft, non tender Extremities: no edema Current Medications Medications (Trade) Dose Ordered Sig/Aimee Route PRN Reason Start Time Stop Time Status Last Admin Dose Admin Acetaminophen (Tylenol) 650 mg Q4H PRN ORAL Mild Pain/Temp > 100.5 12/04/18 15:30 01/03/19 15:29 12/04/18 15:58 Acetazolamide (Diamox) 250 mg FOUR TIMES A DAY ORAL 12/04/18 09:45 01/03/19 09:44 12/05/18 08:48 Cefepime HCl 1 gm/ Dextrose 55 ml @ 110 mls/hr DAILY IVPB 12/05/18 09:00 12/06/18 23:59 12/05/18 08:49 Chlorhexidine Gluconate (Mayra-Hex 2%) 1 applic DAILY@2000 TOPIC 12/03/18 20:00 12/30/18 19:59 12/04/18 21:00 Furosemide (Lasix) 40 mg DAILY IV 12/05/18 09:00 01/04/19 08:59 12/05/18 08:48 Heparin Sodium (Porcine) (Heparin 5000 units/ml) 5,000 units EVERY 12 HOURS SUBQ 12/03/18 09:00 12/30/18 08:59 12/05/18 08:51 Lidocaine (Lidoderm 5% PATCH) 1 patch DAILY@1800 TDERMAL 12/04/18 18:00 01/03/19 17:59 12/04/18 18:23 Lorazepam (Ativan 2mg/ml 1ml) 1 mg Q4H PRN IV For Anxiety 12/03/18 04:30 12/07/18 08:29 12/03/18 21:53 Methylprednisolone Sodium Succinate (Solu-MEDROL) 20 mg EVERY 8 HOURS IVP 12/03/18 06:00 12/30/18 08:14 12/05/18 05:26 Metronidazole (Flagyl) 500 mg Q8HR ORAL 12/04/18 14:00 12/11/18 13:59 12/05/18 05:26 Pantoprazole (Protonix) 40 mg DAILY ORAL 12/03/18 09:00 12/30/18 08:59 12/05/18 08:49 Jessy Zabala MD Dec 05, 2018 10:14
--- NOTE | 2018-12-05 11:00 | NUR ---
NURSE NOTES: Dr Grewal at bedside,ordered to changed pt's diet to Mech soft per pt's request,ordered to removed Kimball cath and transfer pt to Telemetry.
--- NOTE | 2018-12-05 11:07 | NUR ---
P.T Note: P.T evaluation completed and treatment initiated. Please refer to P.T evaluation for current functional status. Pt is alert, oriented x 4, cooperative. Pt denied c/o pain but c/o generalized weakness and fatigue. Pt currently require MIN A X 1 for bed mobility, transfers and gait/ambulation activities using the FWW. Skilled P.T service is warranted to improve strength, endurance and balance to increase independence and safety in functional mobilities. Recommend return to SNF with continued rehab at [facility]. Thank you for this referral. Addendum: 12/05/18 at 1109 by IRON SCHWARZ PT Amended: Links added.
[2018-12-05 12:00] VITALS: BP 114/85
--- NOTE | 2018-12-05 12:24 | NUR ---
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
--- NOTE | 2018-12-05 12:28 | Pulmonology Progress Note ---
Assessment/Plan Assessment/Plan IMPRESSION: 1. Respiratory failure. 2. Exacerbation of COPD. 3. Diabetes mellitus. 4. Hypertension. 5. Pulmonary edema 6. Pneumonia DISCUSSION: Agree with broad-spectrum antibiotics and steroids. Extubated X-rays reviewed; shows persistent pulmonary edema Off IV fluids Continue Lasix I will continue acetazolamide (Has increasing HCO3 and azotemia) I will follow carefully. Subjective Interval Events: None new Constitutional: Reports: no symptoms HEENT: Repors: no symptoms Respiratory: Reports: no symptoms Cardiovascular: Reports: no symptoms Gastrointestinal/Abdominal: Reports: no symptoms Genitourinary: Reports: no symptoms Allergies: Coded Allergies: No Known Allergies (Unverified , 10/17/18) Objective Last 24 Hour Vital Signs Date Time Temp Pulse Resp B/P (MAP) Pulse Ox O2 Delivery O2 Flow Rate FiO2 12/05/18 08:00 83 12/05/18 07:20 Nasal Cannula 3.0 32 12/05/18 07:20 97 Nasal Cannula 3.0 32 12/05/18 04:00 97.7 89 16 121/74 (90) 99 12/05/18 04:00 83 12/05/18 04:00 3.0 12/05/18 04:00 Nasal Cannula 3.0 12/05/18 00:00 Nasal Cannula 3.0 12/05/18 00:00 98.4 100 25 116/78 (91) 96 12/05/18 00:00 3.0 12/05/18 00:00 95 12/04/18 23:02 Nasal Cannula 3.0 32 12/04/18 23:02 Nasal Cannula 3.0 32 12/04/18 20:00 3.0 12/04/18 20:00 101 12/04/18 20:00 98.6 107 22 107/77 (87) 97 12/04/18 20:00 Nasal Cannula 3.0 12/04/18 19:34 104 20 99 Nasal Cannula 3.0 32 12/04/18 19:24 Nasal Cannula 3.0 32 12/04/18 19:24 101 17 98 Nasal Cannula 3.0 32 12/04/18 19:24 98 Nasal Cannula 3.0 32 12/04/18 16:00 97.9 95 22 106/73 (84) 98 12/04/18 16:00 Nasal Cannula 3.0 12/04/18 16:00 93 12/04/18 16:00 3.0 12/04/18 15:40 82 18 99 Nasal Cannula 3.0 32 12/04/18 15:31 82 18 97 Nasal Cannula 3.0 32 Intake and Output 12/04/18 12/05/18 19:00 07:00 Intake Total 355 ml 480 ml Output Total 1800 ml 1250 ml Balance -1445 ml -770 ml Intake Oral 300 ml 480 ml IV Total 55 ml Output Urine Total 1800 ml 1250 ml # Bowel Movements 2 General Appearance: no acute distress HEENT: normocephalic Respiratory/Chest: chest wall non-tender, lungs clear Cardiovascular: normal peripheral pulses, normal rate Abdomen: normal bowel sounds, soft, non tender Current Medications Medications (Trade) Dose Ordered Sig/Aimee Route PRN Reason Start Time Stop Time Status Last Admin Dose Admin Acetaminophen (Tylenol) 650 mg Q4H PRN ORAL Mild Pain/Temp > 100.5 12/04/18 15:30 01/03/19 15:29 12/04/18 15:58 Acetazolamide (Diamox) 250 mg FOUR TIMES A DAY ORAL 12/04/18 09:45 01/03/19 09:44 12/05/18 08:48 Cefepime HCl 1 gm/ Dextrose 55 ml @ 110 mls/hr DAILY IVPB 12/06/18 09:00 12/07/18 23:59 Chlorhexidine Gluconate (Mayra-Hex 2%) 1 applic DAILY@2000 TOPIC 12/03/18 20:00 12/30/18 19:59 12/04/18 21:00 Furosemide (Lasix) 40 mg DAILY IV 12/05/18 09:00 01/04/19 08:59 12/05/18 08:48 Heparin Sodium (Porcine) (Heparin 5000 units/ml) 5,000 units EVERY 12 HOURS SUBQ 12/03/18 09:00 12/30/18 08:59 12/05/18 08:51 Lidocaine (Lidoderm 5% PATCH) 1 patch DAILY@1800 TDERMAL 12/04/18 18:00 01/03/19 17:59 12/04/18 18:23 Lorazepam (Ativan 2mg/ml 1ml) 1 mg Q4H PRN IV For Anxiety 12/03/18 04:30 12/07/18 08:29 12/03/18 21:53 Methylprednisolone Sodium Succinate (Solu-MEDROL) 20 mg EVERY 8 HOURS IVP 12/03/18 06:00 12/30/18 08:14 12/05/18 05:26 Metronidazole (Flagyl) 500 mg Q8HR ORAL 12/04/18 14:00 12/11/18 13:59 12/05/18 05:26 Pantoprazole (Protonix) 40 mg DAILY ORAL 12/03/18 09:00 12/30/18 08:59 12/05/18 08:49 Abhijit Morris MD Dec 05, 2018 12:28
--- NOTE | 2018-12-05 13:18 | NUR ---
*-* INSURANCE *-* ALL CLINICALS AND REVIEWS HAVE BEENF AXED TO: [facility] NCM:LASHAUN P: [phone] F: [phone]
--- NOTE | 2018-12-05 15:25 | General Progress Note ---
Assessment/Plan Problem List: (1) Atrial flutter ICD Codes: I48.92 - Unspecified atrial flutter SNOMED: 8363534 (2) CHF (congestive heart failure) ICD Codes: I50.9 - Heart failure, unspecified SNOMED: 03060441 (3) Hyperglycemia ICD Codes: R73.9 - Hyperglycemia, unspecified SNOMED: 06231582 (4) Abdominal pain ICD Codes: R10.9 - Unspecified abdominal pain SNOMED: 24983343 (5) Fall ICD Codes: W19.XXXA - Unspecified fall, initial encounter SNOMED: 0338215, 033199597 (6) Tachycardia ICD Codes: R00.0 - Tachycardia, unspecified SNOMED: 3385100 (7) COPD exacerbation ICD Codes: J44.1 - Chronic obstructive pulmonary disease with (acute) exacerbation SNOMED: 088250652, 149326508 (8) Respiratory failure ICD Codes: J96.90 - Respiratory failure, unspecified, unspecified whether with hypoxia or hypercapnia SNOMED: 187767439 Qualifiers: Qualified Codes: J96.02 - Acute respiratory failure with hypercapnia Status: stable, progressing Assessment/Plan cont current rx o2 bipap as needed resp care abx topical pain rx avoid opaites/sedatives pt/ot monitor abg Subjective ROS Limited/Unobtainable: No Constitutional: Reports: malaise, weakness HEENT: Reports: no symptoms Cardiovascular: Reports: no symptoms Respiratory: Reports: cough, shortness of breath Gastrointestinal/Abdominal: Reports: no symptoms Genitourinary: Reports: no symptoms Neurologic/Psychiatric: Reports: no symptoms Endocrine: Reports: no symptoms Hematologic/Lymphatic: Reports: no symptoms Allergies: Coded Allergies: No Known Allergies (Unverified , 10/17/18) All Systems: reviewed and negative except above Subjective c/o leg pain. no sob. on nasal cannula. no fevers or chills Objective Last 24 Hour Vital Signs Date Time Temp Pulse Resp B/P (MAP) Pulse Ox O2 Delivery O2 Flow Rate FiO2 12/05/18 12:00 Nasal Cannula 3.0 12/05/18 12:00 101 12/05/18 12:00 98.2 85 18 114/85 (95) 99 12/05/18 08:00 Nasal Cannula 3.0 12/05/18 08:00 97.7 89 16 128/83 (98) 99 4/2/19 08:00 83 12/05/18 07:20 Nasal Cannula 3.0 32 12/05/18 07:20 97 Nasal Cannula 3.0 32 12/05/18 04:00 97.7 89 16 121/74 (90) 99 12/05/18 04:00 83 12/05/18 04:00 3.0 12/05/18 04:00 Nasal Cannula 3.0 12/05/18 00:00 Nasal Cannula 3.0 12/05/18 00:00 98.4 100 25 116/78 (91) 96 12/05/18 00:00 3.0 12/05/18 00:00 95 12/04/18 23:02 Nasal Cannula 3.0 32 12/04/18 23:02 Nasal Cannula 3.0 32 12/04/18 20:00 3.0 12/04/18 20:00 101 12/04/18 20:00 98.6 107 22 107/77 (87) 97 12/04/18 20:00 Nasal Cannula 3.0 12/04/18 19:34 104 20 99 Nasal Cannula 3.0 32 12/04/18 19:24 Nasal Cannula 3.0 32 12/04/18 19:24 101 17 98 Nasal Cannula 3.0 32 12/04/18 19:24 98 Nasal Cannula 3.0 32 12/04/18 16:00 97.9 95 22 106/73 (84) 98 12/04/18 16:00 Nasal Cannula 3.0 12/04/18 16:00 93 12/04/18 16:00 3.0 12/04/18 15:40 82 18 99 Nasal Cannula 3.0 32 12/04/18 15:31 82 18 97 Nasal Cannula 3.0 32 Intake and Output 12/04/18 12/05/18 19:00 07:00 Intake Total 355 ml 480 ml Output Total 1800 ml 1250 ml Balance -1445 ml -770 ml Intake Oral 300 ml 480 ml IV Total 55 ml Output Urine Total 1800 ml 1250 ml # Bowel Movements 2 Height (Feet): 5 Height (Inches): 7.00 Weight (Pounds): 98 General Appearance: WD/WN, alert Neck: supple Cardiovascular: normal peripheral pulses, normal rate, regular rhythm Respiratory/Chest: chest wall non-tender, lungs clear, normal breath sounds, no respiratory distress, no accessory muscle use Abdomen: normal bowel sounds, non tender, soft, no organomegaly, no mass Edema: no edema noted Arm (L), no edema noted Arm (R), no edema noted Leg (L), no edema noted Leg (R), no edema noted Pedal (L), no edema noted Pedal (R), no edema noted Generalized aVrun Stewart MD Dec 05, 2018 15:25
[2018-12-05 16:00] VITALS: BP 131/94
--- NOTE | 2018-12-05 18:26 | Cardiology Report ---
APPROVED REPORT EKG Measurement Heart [id number] [place] 146P61 [id number] Sinus rhythm with premature atrial complexes Left anterior fascicular block Abnormal ECG
--- NOTE | 2018-12-05 19:24 | NUR ---
HAND-OFF: Report given to Diana Chen RN,Rehana do dcd with out trauma..
--- NOTE | 2018-12-05 19:25 | NUR ---
NURSE NOTES: BEDSIDE REPORT RECEIVED FROM ANN LINDSEY. PT IS X4, ABLE TO MAKE NEEDS KNOWN. SERVICES HOST SHOWING SR W/ PVC, AM LABS ORDERED FOR AM. PT IS ASYMPTOMATIC W/ NO S/S OF DISTRESS. WILL FOLLOW UP W/ MD REGARDING LABS/ORDERS. 3L NC TOLERATING WELL. SPRAGUE DC'D. SKIN IS CLEAN AND DRY, DRESSINGS INTACT. L/FEMORAL TLC ASYMPTOMATIC. BED IS LOCKED IN LOWEST POSITION, SR X3, CALL YANES W/ IN REACH, BED ALARM ON. WILL CONTINUE TO MONITOR AND FOLLOW W/ PLAN OF CARE.
--- NOTE | 2018-12-05 19:30 | NUR ---
NURSE NOTES: Pt 's ovalles cath removed,given a urinal ,instructed to void within 6 hrs .
[2018-12-05 20:00] VITALS: BP 124/70
[2018-12-05] MEDS: Dyna-Hex 2% Top Sol 2oz TOPIC SCH (21:01)
--- NOTE | 2018-12-05 21:30 | Cardiology Report ---
APPROVED REPORT EKG Measurement Heart [id number] 138P50 [id number] [id number] Sinus tachycardia Indeterminate axis Right ventricular hypertrophy Septal infarct, age undetermined Inferolateral injury pattern Abnormal ECG
[2018-12-06] VITALS: BP 131/74
--- NOTE | 2018-12-06 03:00 | Progress Note ---
DATE: 12/05/2018 SUBJECTIVE: The patient is upset about his diet being pureed. He is hungry. He thinks he can eat and swallow a former diet better. OBJECTIVE: VITAL SIGNS: Blood pressure 107/77, pulse 107, and respirations 22. Afebrile. Monitored rhythm, sinus, sinus tachycardia, atrial ectopy, ventricular ectopy. LUNGS: Coarse breath sounds. Scattered rhonchi. HEART: Regular rhythm. Rapid rate. Normal S1, S2. Frequent ectopics. ABDOMEN: Soft. EXTREMITIES: No edema. LABORATORY DATA: No new laboratories today. IMPRESSION: 1. Respiratory failure. 2. Compensatory metabolic alkalosis. 3. Acute on chronic respiratory acidosis, now compensated. 4. Acute on chronic diastolic congestive heart failure. 5. Moderate protein-calorie malnutrition. 6. Chronic obstructive pulmonary disease. 7. Paroxysmal bronchospasm. 8. Healthcare-acquired pneumonia. PLAN: 1. The patient is slowly improving. 2. Kimball will be discontinued. 3. Repeat laboratory studies will be obtained. 4. Therapy will be adjusted accordingly. 5. Discharge planning initiated. 6. We will advance diet per the patient's request and continue dysphagia precautions. Justus rGewal M.D. DR: BRIDGET JOB#: [id number] CC:
[2018-12-06 04:00] VITALS: BP 137/80
[2018-12-06 05:44] LABS: HEMATOCRIT 31.1 % (42.0-52.0); HEMOGLOBIN 9.7 G/DL (14.2-18.0); MEAN CORPUSCULAR VOLUME 89 FL (80-99); PLATELET COUNT 165 K/UL (150-450); RED CELL DISTRIBUTION WIDTH 18.4 % (11.6-14.8); WHITE BLOOD COUNT 15.5 K/UL (4.8-10.8)
[2018-12-06] MEDS: Solu-MEDROL 40mg Inj IVP SCH (05:52)
[2018-12-06] MEDS: metroNIDAZOLE 500mg tab ORAL SCH ×3 (05:52→21:06)
[2018-12-06 06:04] LABS: ANION GAP 7 mmol/L (5-15); BLOOD UREA NITROGEN 29 mg/dL (7-18); CALCIUM 9.3 MG/DL (8.5-10.1); CARBON DIOXIDE 30 MMOL/L (21-32); CHLORIDE 99 MMOL/L (98-107); CREATININE 0.8 MG/DL (0.55-1.30); POTASSIUM 3.9 MMOL/L (3.5-5.1); SODIUM 136 MMOL/L (136-145)
--- NOTE | 2018-12-06 06:54 | NUR ---
TRANSFER TO FLOOR: Patient transferred to TELEMTRY 218-1, per UOMOTO. Report given to ANN CHOWDHURY. Belongings and medications given to RECEIVING RN. Family and or S/O informed of transfer.
[2018-12-06] MEDS ORDERED: LORazepam Inj 2mg/ml 1ml IV PRN ×3 (06:55→08:30)
--- NOTE | 2018-12-06 07:00 | NUR ---
NURSE NOTES: Pt received from ANN Ortiz alert and oriented x3 with no acute s/s of distress. Pt asked for apple juice upon rounds, RN provided request for him. IV site asymptomatic and patent. Bed in lowest position, call light and belongings within reach.
--- NOTE | 2018-12-06 07:30 | Pulmonology Progress Note ---
Assessment/Plan Assessment/Plan IMPRESSION: 1. Respiratory failure. 2. Exacerbation of COPD. 3. Diabetes mellitus. 4. Hypertension. 5. Pulmonary edema 6. Pneumonia DISCUSSION: Agree with broad-spectrum antibiotics and steroids. Extubated X-rays reviewed; shows persistent pulmonary edema Off IV fluids Continue Lasix I will decrease acetazolamide (improved HCO3 and azotemia) I will follow carefully. Subjective Interval Events: Comfortable; afebrilw; WBC 15K today Constitutional: Reports: no symptoms HEENT: Repors: no symptoms Respiratory: Reports: no symptoms Cardiovascular: Reports: no symptoms Gastrointestinal/Abdominal: Reports: no symptoms Genitourinary: Reports: no symptoms Neurologic: Reports: no symptoms Allergies: Coded Allergies: No Known Allergies (Unverified , 10/17/18) Objective Last 24 Hour Vital Signs Date Time Temp Pulse Resp B/P (MAP) Pulse Ox O2 Delivery O2 Flow Rate FiO2 12/06/18 04:00 Nasal Cannula 3.0 12/06/18 04:00 98.2 71 20 137/80 (99) 100 12/06/18 04:00 82 12/06/18 00:00 Nasal Cannula 3.0 12/06/18 00:00 90 12/06/18 00:00 98.4 94 24 131/74 (93) 99 12/05/18 20:00 100 12/05/18 20:00 98.5 24 124/70 (88) 96 12/05/18 20:00 Nasal Cannula 3.0 12/05/18 19:22 109 18 Nasal Cannula 2.0 28 12/05/18 19:20 Nasal Cannula 2.0 28 12/05/18 19:19 96 Nasal Cannula 2.0 28 12/05/18 16:58 109 12/05/18 16:00 98.1 18 131/94 (106) 96 12/05/18 16:00 Nasal Cannula 3.0 12/05/18 12:00 Nasal Cannula 3.0 12/05/18 12:00 101 12/05/18 12:00 98.2 85 18 114/85 (95) 99 12/05/18 08:00 Nasal Cannula 3.0 12/05/18 08:00 97.7 89 16 128/83 (98) 99 12/05/18 08:00 83 Intake and Output 12/05/18 12/06/18 19:00 07:00 Intake Total 800 ml 480 ml Output Total 750 ml 650 ml Balance 50 ml -170 ml Intake Oral 800 ml 480 ml Output Urine Total 750 ml 650 ml General Appearance: no acute distress HEENT: normocephalic Respiratory/Chest: chest wall non-tender, lungs clear Cardiovascular: normal peripheral pulses, normal rate Abdomen: normal bowel sounds, soft, non tender Laboratory Tests 12/06/18 04:04: White Blood Count 15.5H, Red Blood Count 3.50L, Hemoglobin 9.7L, Hematocrit 31.1L, Mean Corpuscular Volume 89, Mean Corpuscular Hemoglobin 27.5, Mean Corpuscular Hemoglobin Concent 31.1L, Red Cell Distribution Width 18.4H, Platelet Count 165, Mean Platelet Volume 6.3L, Neutrophils (%) (Auto) , Lymphocytes (%) (Auto) , Monocytes (%) (Auto) , Eosinophils (%) (Auto) , Basophils (%) (Auto) , Sodium Level 136, Potassium Level 3.9, Chloride Level 99 , Carbon Dioxide Level 30, Anion Gap 7, Blood Urea Nitrogen 29H, Creatinine 0.8 , Estimat Glomerular Filtration Rate , Glucose Level 139H, Calcium Level 9.3, Magnesium Level 1.8, Pro-B-Type Natriuretic Peptide 1092H Current Medications Medications (Trade) Dose Ordered Sig/Aimee Route PRN Reason Start Time Stop Time Status Last Admin Dose Admin Acetaminophen (Tylenol) 650 mg Q4H PRN ORAL Mild Pain/Temp > 100.5 12/06/18 06:54 01/05/19 06:53 Acetazolamide (Diamox) 250 mg Q6HR ORAL 12/06/18 12:00 01/05/19 11:59 Cefepime HCl 1 gm/ Dextrose 55 ml @ 110 mls/hr DAILY IVPB 12/06/18 09:00 12/07/18 23:59 Chlorhexidine Gluconate (Mayra-Hex 2%) 1 applic DAILY@2000 TOPIC 12/06/18 20:00 12/30/18 19:59 Furosemide (Lasix) 40 mg DAILY IV 12/06/18 09:00 01/04/19 08:59 Heparin Sodium (Porcine) (Heparin 5000 units/ml) 5,000 units EVERY 12 HOURS SUBQ 12/06/18 09:00 12/30/18 08:59 Lidocaine (Lidoderm 5% PATCH) 1 patch DAILY@1800 TDERMAL 12/06/18 18:00 01/03/19 17:59 Lorazepam (Ativan 2mg/ml 1ml) 1 mg Q4H PRN IV For Anxiety 12/06/18 06:55 12/13/18 06:54 Methylprednisolone Sodium Succinate (Solu-MEDROL) 20 mg EVERY 8 HOURS IVP 12/06/18 14:00 12/30/18 13:59 Metronidazole (Flagyl) 500 mg Q8HR ORAL 12/06/18 14:00 12/11/18 13:59 Pantoprazole (Protonix) 40 mg DAILY ORAL 12/06/18 09:00 12/30/18 08:59 Abhijit Morris MD Dec 06, 2018 07:30
[2018-12-06 08:00] VITALS: BP 132/83
--- NOTE | 2018-12-06 08:58 | General Progress Note ---
Assessment/Plan Problem List: (1) Atrial flutter ICD Codes: I48.92 - Unspecified atrial flutter SNOMED: 5968709 (2) CHF (congestive heart failure) ICD Codes: I50.9 - Heart failure, unspecified SNOMED: 51234048 (3) Hyperglycemia ICD Codes: R73.9 - Hyperglycemia, unspecified SNOMED: 12231629 (4) Abdominal pain ICD Codes: R10.9 - Unspecified abdominal pain SNOMED: 39332365 (5) Fall ICD Codes: W19.XXXA - Unspecified fall, initial encounter SNOMED: 7605149, 210355026 (6) Tachycardia ICD Codes: R00.0 - Tachycardia, unspecified SNOMED: 0745423 (7) COPD exacerbation ICD Codes: J44.1 - Chronic obstructive pulmonary disease with (acute) exacerbation SNOMED: 743147085, 951013968 (8) Respiratory failure ICD Codes: J96.90 - Respiratory failure, unspecified, unspecified whether with hypoxia or hypercapnia SNOMED: 606887577 Qualifiers: Qualified Codes: J96.02 - Acute respiratory failure with hypercapnia Status: stable Assessment/Plan cont current rx o2 bipap as needed resp care abx topical pain rx avoid opaites/sedatives pt/ot monitor abg dc planning Subjective ROS Limited/Unobtainable: No Constitutional: Reports: malaise, weakness HEENT: Reports: no symptoms Cardiovascular: Reports: no symptoms Respiratory: Reports: cough Gastrointestinal/Abdominal: Reports: no symptoms Genitourinary: Reports: no symptoms Neurologic/Psychiatric: Reports: no symptoms Endocrine: Reports: no symptoms Hematologic/Lymphatic: Reports: no symptoms Allergies: Coded Allergies: No Known Allergies (Unverified , 10/17/18) All Systems: reviewed and negative except above Subjective no new complaints. stable on nasal cannula. no fever or chills. no cp Objective Last 24 Hour Vital Signs Date Time Temp Pulse Resp B/P (MAP) Pulse Ox O2 Delivery O2 Flow Rate FiO2 12/06/18 07:30 Nasal Cannula 2.0 28 12/06/18 07:30 96 Nasal Cannula 2.0 28 12/06/18 04:00 Nasal Cannula 3.0 12/06/18 04:00 98.2 71 20 137/80 (99) 100 12/06/18 04:00 82 12/06/18 00:00 Nasal Cannula 3.0 12/06/18 00:00 90 12/06/18 00:00 98.4 94 24 131/74 (93) 99 12/05/18 20:00 100 12/05/18 20:00 98.5 24 124/70 (88) 96 12/05/18 20:00 Nasal Cannula 3.0 12/05/18 19:22 109 18 Nasal Cannula 2.0 28 12/05/18 19:20 Nasal Cannula 2.0 28 12/05/18 19:19 96 Nasal Cannula 2.0 28 12/05/18 16:58 109 12/05/18 16:00 98.1 18 131/94 (106) 96 12/05/18 16:00 Nasal Cannula 3.0 12/05/18 12:00 Nasal Cannula 3.0 12/05/18 12:00 101 12/05/18 12:00 98.2 85 18 114/85 (95) 99 Intake and Output 12/05/18 12/06/18 19:00 07:00 Intake Total 800 ml 480 ml Output Total 750 ml 650 ml Balance 50 ml -170 ml Intake Oral 800 ml 480 ml Output Urine Total 750 ml 650 ml Laboratory Tests 12/06/18 04:04: White Blood Count 15.5H, Red Blood Count 3.50L, Hemoglobin 9.7L, Hematocrit 31.1L, Mean Corpuscular Volume 89, Mean Corpuscular Hemoglobin 27.5, Mean Corpuscular Hemoglobin Concent 31.1L, Red Cell Distribution Width 18.4H, Platelet Count 165, Mean Platelet Volume 6.3L, Neutrophils (%) (Auto) , Lymphocytes (%) (Auto) , Monocytes (%) (Auto) , Eosinophils (%) (Auto) , Basophils (%) (Auto) , Sodium Level 136, Potassium Level 3.9, Chloride Level 99 , Carbon Dioxide Level 30, Anion Gap 7, Blood Urea Nitrogen 29H, Creatinine 0.8 , Estimat Glomerular Filtration Rate , Glucose Level 139H, Calcium Level 9.3, Magnesium Level 1.8, Pro-B-Type Natriuretic Peptide 1092H Height (Feet): 5 Height (Inches): 7.00 Weight (Pounds): 93 General Appearance: WD/WN, alert Neck: supple Cardiovascular: regular rhythm Respiratory/Chest: chest wall non-tender, lungs clear, normal breath sounds Abdomen: normal bowel sounds, non tender, soft, no organomegaly Edema: no edema noted Arm (L), no edema noted Arm (R), no edema noted Leg (L), no edema noted Leg (R), no edema noted Pedal (L), no edema noted Pedal (R), no edema noted Generalized Varun Stewart MD Dec 06, 2018 08:58
[2018-12-06] MEDS ORDERED: Heparin 5000 units/ml inj SUBQ SCH ×2 (09:00)
[2018-12-06] MEDS ORDERED: Cefepime HCl 1 GM in D5W 55 ML IVPB SCH ×6 (09:00)
[2018-12-06] MEDS ORDERED: Furosemide 40mg tab ORAL SCH (09:00)
[2018-12-06] MEDS: Cefepime HCl 1 GM in D5W 55 ML IVPB SCH (09:20)
[2018-12-06] MEDS: Heparin 5000 units/ml inj SUBQ SCH ×2 (09:25→20:49)
--- NOTE | 2018-12-06 10:25 | NUR ---
RADIOLOGY DEPT., CHEST X-RAY DONE.-P.DYE
--- NOTE | 2018-12-06 11:26 | Diagnostic Imaging Report ---
Indication: Cough Technique: One view of the chest Comparison: 12/03/2018 Findings: Again demonstrated are low lung volumes, bilateral basilar atelectatic changes. Infiltrates are also possible. The pleural spaces, upper lungs are clear. The heart is borderline enlarged. Enlargement of the left main pulmonary artery is again demonstrated Findings are unchanged Impression: Hypoventilatory exam with bilateral basilar atelectatic changes and possible infiltrates, stable since previous study of 12/03/2018 Other findings as noted
[2018-12-06 12:00] VITALS: BP 116/74
--- NOTE | 2018-12-06 13:51 | NUR ---
*-* INSURANCE *-* UPDATED CLINICALS HAVE BEEN FAXED TO: [facility] NCM:LASHAUN P: [phone] F: [phone]
[2018-12-06] MEDS ORDERED: Solu-MEDROL 40mg Inj IVP SCH ×3 (14:00)
[2018-12-06] MEDS ORDERED: metroNIDAZOLE 500mg tab ORAL SCH ×2 (14:00)
--- NOTE | 2018-12-06 14:02 | NUR ---
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 IS: CEFEPIME 55ml IVPB LASIX 40mg IV PREDNISONE 5mg FLAGYL 500mg DIAMOX 250mg HEPARIN SUBQ PROTONIX 40mg TELE STATUS
--- NOTE | 2018-12-06 15:50 | NUR ---
DISCHARGE PLANNING FAXED OVER REFERRAL TO [facility]- FAX-
[2018-12-06 16:00] VITALS: BP 112/65
--- NOTE | 2018-12-06 19:35 | NUR ---
HAND-OFF: Report given to ANN Peters.
[2018-12-06 20:00] VITALS: BP 123/82
[2018-12-06] MEDS ORDERED: Dyna-Hex 2% Top Sol 2oz TOPIC SCH ×3 (20:00)
--- NOTE | 2018-12-06 20:04 | NUR ---
NURSE NOTES: patient received. patient in no acute distress at this time. patient complains of no pain at this time. patient awake alert and oriented x3-4. patient IV intact and asymptomatic. patient wounds dry and intact. patient bed in lowest position and locked. call light within reach. will continue to monitor.
[2018-12-07] VITALS: BP 138/83
--- NOTE | 2018-12-07 | Progress Note ---
DATE: 12/06/2018 CARDIOLOGY PROGRESS NOTE SUBJECTIVE: Discharge planning in progress. Less congested. Enjoys his upgraded diet better. No choking. OBJECTIVE: VITAL SIGNS: Blood pressure 137/80, pulse 71, respirations 20, and oxygen saturation on 2 liters is 96% to 100. LUNGS: Diminished breath sounds. HEART: Regular rhythm and rate. Normal S1, S2. ABDOMEN: Soft. EXTREMITIES: Trace edema. Stasis derm changes. LABORATORY DATA: White count 15 and hemoglobin 9.7. Potassium 3.9, BUN 29, and creatinine 0.8. Pro-natriuretic peptide decreased to 1092 and magnesium was 1.8. IMPRESSION: Steady clinical improvement. PLAN: 1. Maintenance therapy. 2. Discharge planning. 3. Respiratory hygiene. 4. Steroid taper. Justus Grewal M.D. DR: BRIDGET JOB#: [id number] CC:
[2018-12-07 04:00] VITALS: BP 119/82
[2018-12-07] MEDS: metroNIDAZOLE 500mg tab ORAL SCH ×2 (06:08→13:30)
--- NOTE | 2018-12-07 07:04 | NUR ---
HAND-OFF: Report given to sri eli.
[2018-12-07] MEDS ORDERED: PREDNISONE5 MG ORAL (07:50)
[2018-12-07] MEDS ORDERED: FUROSEMIDE40 MG ORAL (07:50)
[2018-12-07] MEDS ORDERED: PANTOPRAZOLE SO40 MG ORAL (07:50)
[2018-12-07 08:00] VITALS: BP 133/79
[2018-12-07] MEDS ORDERED: Furosemide 40mg tab ORAL SCH (09:00)
--- NOTE | 2018-12-07 09:00 | Pulmonology Progress Note ---
Assessment/Plan Assessment/Plan IMPRESSION: 1. Respiratory failure. Resolved 2. Exacerbation of COPD. Improved. 3. Diabetes mellitus. 4. Hypertension. 5. Pulmonary edema; resolved. 6. Pneumonia DISCUSSION: Extubated X-rays reviewed; shows much improved pulmonary edema Off IV fluids Continue Lasix I will dc acetazolamide (improved HCO3 and azotemia) I will follow carefully. PO steroids; taper and dc soon Subjective Interval Events: Much improved; CXR significantly improved Constitutional: Reports: no symptoms HEENT: Repors: no symptoms Respiratory: Reports: no symptoms Cardiovascular: Reports: no symptoms Gastrointestinal/Abdominal: Reports: no symptoms Genitourinary: Reports: no symptoms Allergies: Coded Allergies: No Known Allergies (Unverified , 10/17/18) Objective Last 24 Hour Vital Signs Date Time Temp Pulse Resp B/P (MAP) Pulse Ox O2 Delivery O2 Flow Rate FiO2 12/07/18 04:00 98.0 90 20 119/82 (94) 96 12/07/18 04:00 115 12/07/18 00:00 100 12/07/18 00:00 98.2 96 20 138/83 (101) 97 12/06/18 21:00 Nasal Cannula 3.0 12/06/18 20:00 99.3 99 20 123/82 (96) 95 12/06/18 20:00 103 12/06/18 18:50 98 Nasal Cannula 2.0 28 12/06/18 18:50 Nasal Cannula 2.0 28 12/06/18 16:00 98.5 99 20 112/65 (81) 95 12/06/18 16:00 101 12/06/18 12:00 98.6 79 20 116/74 (88) 95 12/06/18 12:00 89 12/06/18 12:00 Nasal Cannula 3.0 12/06/18 09:00 Nasal Cannula 3.0 Intake and Output 12/06/18 12/07/18 18:59 06:59 Intake Total 665 ml Output Total 1500 ml Balance -835 ml Intake Oral 480 ml Free Water 100 ml Tube Feeding 55 ml Other 30 ml Output Urine Total 1500 ml # Bowel Movements 4 General Appearance: no acute distress HEENT: normocephalic Respiratory/Chest: chest wall non-tender, lungs clear Cardiovascular: normal peripheral pulses, normal rate Abdomen: normal bowel sounds, soft, non tender Current Medications Medications (Trade) Dose Ordered Sig/Aimee Route PRN Reason Start Time Stop Time Status Last Admin Dose Admin Acetaminophen (Tylenol) 650 mg Q4H PRN ORAL Mild Pain/Temp > 100.5 12/06/18 06:54 01/05/19 06:53 12/06/18 23:05 Cefepime HCl 1 gm/ Dextrose 55 ml @ 110 mls/hr DAILY IVPB 12/06/18 09:00 12/07/18 23:59 12/06/18 09:20 Chlorhexidine Gluconate (Mayra-Hex 2%) 1 applic DAILY@2000 TOPIC 12/06/18 20:00 12/30/18 19:59 12/06/18 20:48 Furosemide (Lasix) 40 mg DAILY ORAL 12/07/18 09:00 01/06/19 08:59 Heparin Sodium (Porcine) (Heparin 5000 units/ml) 5,000 units EVERY 12 HOURS SUBQ 12/06/18 09:00 12/30/18 08:59 12/06/18 20:49 Lidocaine (Lidoderm 5% PATCH) 1 patch DAILY@1800 TDERMAL 12/06/18 18:00 01/03/19 17:59 12/06/18 17:41 Lorazepam (Ativan 2mg/ml 1ml) 1 mg Q4H PRN IV For Anxiety 12/06/18 06:55 12/13/18 06:54 Metronidazole (Flagyl) 500 mg Q8HR ORAL 12/06/18 14:00 12/11/18 13:59 12/07/18 06:08 Pantoprazole (Protonix) 40 mg DAILY ORAL 12/06/18 09:00 12/30/18 08:59 12/06/18 09:20 Prednisone (predniSONE) 5 mg DAILY ORAL 12/06/18 09:00 01/05/19 08:59 12/06/18 09:20 Abhijit Morris MD Dec 07, 2018 09:00
[2018-12-07] MEDS: Cefepime HCl 1 GM in D5W 55 ML IVPB SCH (09:20)
[2018-12-07] MEDS: Heparin 5000 units/ml inj SUBQ SCH (09:28)
--- NOTE | 2018-12-07 11:22 | NUR ---
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
[2018-12-07 12:00] VITALS: BP 112/76
--- NOTE | 2018-12-07 12:08 | NUR ---
DATA ENTRY ANALYST NOTES SPOKE WITH YENNIFER FROM [facility], PT ACCEPTED BACK TO ROOM 4 BED C.WAITING FOR OFFICIAL DISCHARGE ORDER.
--- NOTE | 2018-12-07 13:39 | Infectious Diseases Prog Note ---
Assessment/Plan Assessment/Plan A; Pseudomonas pneumonia COPD exacerbation Hypercapnic respiratory failure DM HPN P: Continue Cefepime X 2 days Subjective ROS Limited/Unobtainable: No Constitutional: Reports: no symptoms Respiratory: Reports: shortness of breath, dry cough Gastrointestinal/Abdominal: Reports: diarrhea Neurologic: Reports: no symptoms Allergies: Coded Allergies: No Known Allergies (Unverified , 10/17/18) Objective Vital Signs Last 24 Hour Vital Signs Date Time Temp Pulse Resp B/P (MAP) Pulse Ox O2 Delivery O2 Flow Rate FiO2 12/07/18 12:00 117 12/07/18 12:00 98.4 103 20 112/76 (88) 97 12/07/18 09:00 Nasal Cannula 3.0 12/07/18 08:00 115 12/07/18 08:00 98.3 102 20 133/79 (97) 100 12/07/18 04:00 98.0 90 20 119/82 (94) 96 12/07/18 04:00 115 12/07/18 00:00 100 12/07/18 00:00 98.2 96 20 138/83 (101) 97 12/06/18 21:00 Nasal Cannula 3.0 12/06/18 20:00 99.3 99 20 123/82 (96) 95 12/06/18 20:00 103 12/06/18 18:50 98 Nasal Cannula 2.0 28 12/06/18 18:50 Nasal Cannula 2.0 28 12/06/18 16:00 98.5 99 20 112/65 (81) 95 12/06/18 16:00 101 Height (Feet): 5 Height (Inches): 7.00 Weight (Pounds): 93 General Appearance: no acute distress, cachetic HEENT: mucous membranes moist Respiratory/Chest: decreased breath sounds Cardiovascular: tachycardia Abdomen: soft, non tender Extremities: no edema Neurologic/Psychiatric: alert, responsive Musculoskeletal: atrophy Current Medications Medications (Trade) Dose Ordered Sig/Aimee Route PRN Reason Start Time Stop Time Status Last Admin Dose Admin Acetaminophen (Tylenol) 650 mg Q4H PRN ORAL Mild Pain/Temp > 100.5 12/06/18 06:54 01/05/19 06:53 12/07/18 09:20 Cefepime HCl 1 gm/ Dextrose 55 ml @ 110 mls/hr DAILY IVPB 12/06/18 09:00 12/08/18 08:59 12/07/18 09:20 Chlorhexidine Gluconate (Mayra-Hex 2%) 1 applic DAILY@2000 TOPIC 12/06/18 20:00 12/30/18 19:59 12/06/18 20:48 Furosemide (Lasix) 40 mg DAILY ORAL 12/07/18 09:00 01/06/19 08:59 12/07/18 09:20 Heparin Sodium (Porcine) (Heparin 5000 units/ml) 5,000 units EVERY 12 HOURS SUBQ 12/06/18 09:00 12/30/18 08:59 12/07/18 09:28 Lidocaine (Lidoderm 5% PATCH) 1 patch DAILY@1800 TDERMAL 12/06/18 18:00 01/03/19 17:59 12/06/18 17:41 Lorazepam (Ativan 2mg/ml 1ml) 1 mg Q4H PRN IV For Anxiety 12/06/18 06:55 12/13/18 06:54 Metronidazole (Flagyl) 500 mg Q8HR ORAL 12/06/18 14:00 12/11/18 13:59 12/07/18 13:30 Pantoprazole (Protonix) 40 mg DAILY ORAL 12/06/18 09:00 12/30/18 08:59 12/07/18 09:20 Prednisone (predniSONE) 5 mg DAILY ORAL 12/06/18 09:00 01/05/19 08:59 12/07/18 09:20 Jez Espinoza MD Dec 07, 2018 13:39
--- NOTE | 2018-12-07 14:23 | NUR ---
*-* INSURANCE *-* UPDATED CLINICALS HAVE BEEN FAXED TO: [facility] NCM:LASHAUN P: [phone] F: [phone]
--- NOTE | 2018-12-07 15:13 | NUR ---
RD ASSESSMENT & RECOMMENDATIONS SEE CARE ACTIVITY FOR COMPLETE ASSESSMENT DAILY ESTIMATED NEEDS: Needs based on Underweight, wound, critical care, HIV+, 48.6kg 30-35 kcals/kg 2811-1087 total kcals 1.25-2 g protein/kg 61-97 g total protein 25-30 mL/kg 7970-8810 total fluid mLs NUTRITION DIAGNOSIS: 1) Increased kcal and protein needs r/t wasting, HIV, underweight status, and wound healing as evidenced by moderate to severe generalized muscle and fat wasting, BMI 16.3, pt is 69% of [place] Body Weight, HIV+, pt w/ BL heels stage 1 wounds. 2) Swallowing difficulty r/t respiratory status as evidenced by pt is now s/p extubation, NGT removed, on mech soft chopped texture diet. CURRENT DIET:No added salt/ mech soft chopped PO DIET RECOMMENDATIONS: Low Na/ texture per MAIL ORDER CLERK + Ensure Enlive TID ADDITIONAL RECOMMENDATIONS: * RECALIBRATE BED SCALE-> 10# difference of wt in 4 days * Monitor BG on solumedrol/ need for SSI, carb controlled diet, h/o DM * Continue Ensure Enlive TID w/ meals (350kcal/20g prot per bottle) -> change to Glucerna TID w/ elev BGs * Wound care: add MIMI BID + MVI x1 .
[2018-12-07] MEDS ORDERED: Tubing IV Secondary IV ONE (15:14)
[2018-12-07] MEDS ORDERED: NS 275ml ONE (15:14)
[2018-12-07 16:00] VITALS: BP 123/85
--- NOTE | 2018-12-07 16:01 | NUR ---
NURSE NOTES: Received report from Javier Gallegos/RN, Patient awake, watching TV. No distress/SOB noted at this time. Bed in low position, Call light within reach. Will continue plan of care.
--- NOTE | 2018-12-07 17:50 | NUR ---
NURSE NOTES: Called Tasia russo to give report, at . There was no answer or answering machine option.
--- NOTE | 2018-12-07 19:34 | NUR ---
HAND-OFF: Report given to Anthony/RN, Patient is in stable condition.Endorsed plan of care.
--- NOTE | 2018-12-07 19:40 | NUR ---
NURSE NOTES: Received report from ANN Han. Patient in bed awake showing no signs of acute distress. Respiration even and non labored on 3L O2 nc. No sob noted. Bed in lowest position. Call light within reach. All needs attended and met. Patient ready for DC. 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
--- NOTE | 2018-12-07 21:08 | NUR ---
HAND-OFF: Report given to Sukh. Patient is picked up via [facility]. Patient is stable.
--- NOTE | 2018-12-08 | Discharge Summary ---
DATE OF ADMISSION: 11/29/2018 DATE OF DISCHARGE: 12/07/2018 ADMISSION DIAGNOSES: 1. Respiratory failure. 2. Chronic obstructive pulmonary disease. 3. Pneumonia. 4. Congestive heart failure. DISCHARGE DIAGNOSES: 1. Respiratory failure. 2. Chronic obstructive pulmonary disease. 3. Pneumonia. 4. Congestive heart failure. HOSPITAL COURSE: The patient is a 73-year-old male with history of COPD and CHF, who presented with complaints of shortness of breath secondary to COPD exacerbation, pneumonia, he was intubated. He was maintained on the ventilator and slowly weaned off. He received intravenous steroids and broad-spectrum IV antibiotics. The patient improved, was extubated, weaned off BiPAP, O2 nasal cannula. On discharge, he was stable. He completed all of his inpatient antibiotics while in-house. DISCHARGE MEDICATIONS: Please see discharge medication list for discharge medications. DIET: Cardiac diet. ACTIVITIES: Ad-ashley. Varun Stewart M.D. DR: RAQUEL JOB#: [id number] CC:
--- NOTE | 2018-12-08 04:15 | Progress Note ---
DATE: 12/07/2018 CARDIOLOGY PROGRESS NOTE SUBJECTIVE: The patient feels better. Less congested. No chest pain. He is completing antimicrobials. OBJECTIVE: VITAL SIGNS: Blood pressure 112/76, pulse 103, respiratory rate 20. LUNGS: With diminished breath sounds. No wheezing. Few rhonchi. CARDIAC: Regular rhythm. Rapid rate. Normal S1, S2 with a fourth heart sound. ABDOMEN: Soft. EXTREMITIES: Trace edema. LABORATORY DATA: Reviewed. IMPRESSION: 1. Healthcare-acquired pneumonia. 2. Dysphagia. 3. COPD. 4. History of heroin dependence, on methadone. 5. Acute on chronic diastolic congestive heart failure. 6. Chronic venous insufficiency with leg ulcers healing. 7. Severe protein-calorie malnutrition. 8. Pseudomonas pneumonia. 9. Hypercapnic respiratory failure. 10. Chronic respiratory acidosis. 11. Severe pulmonary hypertension. 12. Type 2 diabetes mellitus. PLAN: 1. Complete antimicrobials. 2. Continue respiratory hygiene. 3. Maintenance dose steroids. 4. Maintenance dose diuretics. 5. Nutritional support. 6. Methadone therapy. 7. Transfer to long-term facility with no additional mobilization and rehabilitation as well as speech therapy. 8. Aspiration risk. 9. Discharge medication regimen reviewed, reconciled, and discussed at long-term home staff. Justus Grewal M.D. NANCY ALEXANDER JOB#: [id number] CC:
== END 2018-12-07 21:20 | DRG 137 ==
LOC: EDBD 18:07 → EMR 18:40 → EDBEDREQ 18:53 → ICU 19:29 → EDBEDREQ 20:21 → 2W 12-03 04:20 → 2E 12-06 06:35
PROC: 5A1945Z Respiratory Ventilation, 24-96 Consecutive Hours (ICD-10-PCS; principal; 2018-11-29)
PROC: 06HN33Z Insertion of Infusion Device into Left Femoral Vein, Percutaneous Approach (ICD-10-PCS; principal; 2018-11-29)
PROC: 0BH17EZ Insertion of Endotracheal Airway into Trachea, Via Natural or Artificial Opening (ICD-10-PCS; principal; 2018-11-29)
DX: J15.1 Pneumonia due to Pseudomonas (principal); J96.02 Acute respiratory failure with hypercapnia; E43 Unspecified severe protein-calorie malnutrition; I50.33 Acute on chronic diastolic (congestive) heart failure; E11.65 Type 2 diabetes mellitus with hyperglycemia; I27.20 Pulmonary hypertension, unspecified; F11.20 Opioid dependence, uncomplicated; J44.0 Chronic obstructive pulmonary disease with (acute) lower respiratory infection; I11.0 Hypertensive heart disease with heart failure; J44.1 Chronic obstructive pulmonary disease with (acute) exacerbation; Z91.19 Patient's noncompliance with other medical treatment and regimen; Y95 Nosocomial condition; R00.0 Tachycardia, unspecified; R13.10 Dysphagia, unspecified; Z68.1 Body mass index [BMI] 19.9 or less, adult; I48.92 Unspecified atrial flutter
CPT/HCPCS: 31500; 36415; 36600; 71045; 74018; 80048; 80053; 80307; 81003; 82550; 82553; 82803; 83605; 83735; 83880; 84478; 84484; 85007; 85025; 87040; 87070; 87081; 87181; 87205; 93005; 93970; 94002; 94003; 94640; 94660; 94664; 94760; 96361; 96365; 96368; 96375; 99291; J7620; J8499

== ENCOUNTER 2019-01-07 16:04 | Inpatient (IN) | payer MEDICARE, OTHER ==
[~2019-01-07] VITALS: Ht 154.9 cm; Wt 46.3 kg
[2019-01-07] VITALS (21 sets, daily range): BP systolic 85–108; BP diastolic 52–70
[~2019-01-07 16:04] MED LIST changes: +ASPIRIN81 MG ORAL; +GUAIFENESIN-CO118 M1 ORAL; +PANTOPRAZOLE SO40 MG ORAL; +PREDNISONE5 MG ORAL
--- NOTE | 2019-01-07 16:05 | NUR ---
ED Nurse Note: pt brought in by JULISA from [facility], per EMS report, pt is more altered than usual due to possible sz, per EMS statement, pt was found in bed w/ tremors by nursing staff. on scene, pt o2sat 78% and started pt on nonrebreather mask 15L/min, pt went up to 91%. Noted pt in distress, increase sob, weak cough nonproductive noted, LS= rhonchi at bases. pt sinus tach, warm to touch. will cont monitor.
--- NOTE | 2019-01-07 16:05 | NUR ---
ED Nurse Note: seizure and aspiration precaution started.
--- NOTE | 2019-01-07 16:14 | NUR ---
ED Nurse Note: nonbehavioral restraints applied per ERMD order
[2019-01-07] MEDS ORDERED: Ipratropium 0.02% Inh Soln 2.5ml UD HHN ONE (16:15)
[2019-01-07] MEDS ORDERED: Midazolam for drip 50 MG in NS 90 ML IV ONE (16:15)
[2019-01-07] MEDS ORDERED: Solu-MEDROL 125mg Inj IVP ONE (16:15)
[2019-01-07] MEDS ORDERED: Midazolam 2mg/2ml Inj ONE ×2 (16:18→17:21)
--- NOTE | 2019-01-07 16:20 | NUR ---
ED Nurse Note: PER ermd ORDER, 2MG VERSED OVERRIDE AND WAS GIVEN VIA IM. RIGHT DELTOID.
--- NOTE | 2019-01-07 16:23 | NUR ---
ED Nurse Note: PT INTUBATED BY ERMD. RT AT THE BEDSIDE. SIZ 7.5 AT 23CM, PEEP 0, TV 400, AC 16, FIO2 40%
[2019-01-07] MEDS ORDERED: Versed 50mg/D5W 100ml 100 ML IVPB ONE (16:30)
[2019-01-07] MEDS ORDERED: ACETAMINOPHEN500 M3 ORAL (16:35)
[2019-01-07] MEDS ORDERED: MIRALAX17 G2 ORAL (16:35)
[2019-01-07] MEDS ORDERED: LEVAQUIN500 MG ORAL (16:35)
[2019-01-07] MEDS ORDERED: BISACODYL5 MG ORAL (16:35)
[2019-01-07] MEDS ORDERED: ZANTAC150 MG ORAL (16:35)
[2019-01-07] MEDS ORDERED: SENNA8.6 M2 PO (16:35)
[2019-01-07] MEDS ORDERED: NYSTATIN1 EAC2 MC (16:35)
[2019-01-07] MEDS ORDERED: ZINC SULFATE220 M2 ORAL (16:35)
[2019-01-07] MEDS ORDERED: PREDNISONE5 M3 PO (16:35)
[2019-01-07] MEDS ORDERED: ASCORBIC ACID500 MG ORAL (16:35)
[2019-01-07] MEDS ORDERED: COLACE100 MG ORAL (16:35)
[2019-01-07] MEDS ORDERED: REVATIO20 MG ORAL (16:35)
--- NOTE | 2019-01-07 16:56 | Emergency Room Report ---
History of Present Illness General Chief Complaint: Altered Level of Consciousness Source: Medical Record, EMS Present Illness HPI EMS was called for possible seizure activity. They found him with a low O2 saturation and Soma 100% nonrebreather. She was somewhat improved during transport. The patient has a history of COPD and was intubated in November. He is on gabapentin also. Unclear whether there are other antiepileptic medications. On methadone COPD on oxygen Protein calory malnutrition H/O CHF H/O DM type 2 Admitted November 2018 - intubated. D/C dx: 1. Respiratory failure. 2. Chronic obstructive pulmonary disease. 3. Pneumonia. 4. Congestive heart failure. Allergies: Coded Allergies: No Known Allergies (Unverified , 10/17/18) Patient History Limited by: medical condition Past Medical History: see triage record, old chart reviewed Social History: Denies: smoking - in past, alcohol use - in past, drug use - in past Social History Narrative SNF Reviewed Nursing Documentation: PMH: Agreed; PSxH: Agreed Nursing Documentation-PMH Hx Cardiac Problems: Yes Hx Hypertension: Yes Hx Pacemaker: No Hx Asthma: Yes Hx COPD: Yes Hx Diabetes: Yes Hx Cancer: No Hx Gastrointestinal Problems: Yes Hx Neurological Problems: Yes Hx Dizziness: Yes Hx Weakness: Yes Review of Systems All Other Systems: limited Physical Exam Vital Signs Date Time Temp Pulse Resp B/P (MAP) Pulse Ox O2 Delivery O2 Flow Rate FiO2 01/07/19 15:58 130 18 92 Non-Rebreather 15.0 01/07/19 16:30 50 Sp02 EP Interpretation: reviewed, abnormal - interpreted low by me General Appearance: thin, Chronically Ill, Stupor Head: normocephalic, atraumatic Eyes: bilateral eye PERRL ENT: moist mucus membranes Neck: supple Respiratory: decreased breath sounds, rales - R, other - poor tidal volume Cardiovascular #1: no edema, tachycardia Cardiovascular #2: 2+ femoral (R), 2+ femoral (L) Gastrointestinal: decreased bowel sounds, scaphoid Genitourinary: penis normal Musculoskeletal: other - atrophy Neurologic: other - myclonic jerks arms, opens eyes to command, but not follow other commands Psychiatric: other - min response Skin: pallor, cyanosis, other - wound lower leg, poor tugor Procedures Critical Care Time Critical Care Time Total Critical Care Time: 60 min bedside evaluation and treatment excludes procedures (EKG, intubation, CVP). Reason for critical care: Respiratory failure, sepsis, pneumonia, transient hypotension ventilator adjustments, Possible complications: hypotension, hypertension, RI, shock, arrhythmias, metabolic acidosis, end organ damage, respiratory failure. Interventions: Intubation, CVP, fluid resuscitation, antibiotics, ventilator adjustments repeated examinations Course: Patient presented post seizure. Patient with an effective tidal volumes and decreasing oxygen saturations. Intubated emergently. Lack of IV determined to be low as interpreted by me CVP. Versed sedation needed to be adjusted. Transient hypotension improved with fluid administration. Antibiotics started for pneumonia. Ventilator settings adjusted. Repeated evaluation with sedation assessment. Admit to ICU Consultations: nursing staff, EMS, RT, admitting MD Performed by: Dr. Arrieta Tolerated well condition = critical Central Line Central Line : Consent: Emergent Central Line Lumen: triple Maximal Sterile Barrier Tech: yes cap, yes mask, yes sterile gown, yes sterile gloves, yes large sterile sheet, yes hand hygiene, yes chlorhexidine prep Central Line Postion: internal jugular (R) Anesthesia: none Complications: none Central Line Post Position: sutured, good blood return Attempts: One Patient Tolerated: Well Complications: None Progress Attempted R femoral - vein on top of artery. Unable to cannulate. Ultrasound guidance R Low IJ without difficulty. Ultrasound guidance - bloods drawn for lab work ( total EBL = 35 cc - 30 to lab) Intubation Intubation : Consent: Emergent Intubation Method: orotracheal Tube Size (cm): 7.5 Medications: Versed - IM Breath Sounds after Intubation: equal Intubation Complications: no complications Post Intubation Xray: Yes Attempts: One Patient Tolerated: Well Complications: None Medical Decision Making Diagnostic Impression: Primary Impression: Respiratory failure Qualified Codes: J96.01 - Acute respiratory failure with hypoxia; J96.02 - Acute respiratory failure with hypercapnia Additional Impressions: Pneumonia involving right lung Qualified Codes: J18.9 - Pneumonia, unspecified organism COPD (chronic obstructive pulmonary disease) Qualified Codes: J44.9 - Chronic obstructive pulmonary disease, unspecified ER Course Patient presents post alleged seizure at the nursing home facility. He has a history of COPD. There's is unable to start IV. Patient with respiratory insufficiency and intubated immediately as sats were dropping on 100% NRM. I started assisting ventillations and O2 sat increased to 100% prior to intubation. Versed given IM. Also because of lack of IV the central line was begun. Bloods were drawn. Differential includes respiratory failure, acute myocardial infarction, sepsis, pneumonia, uncontrolled seizures electrolyte abnormalities amongst others. Evaluation with EKG, chest x-ray and of labs including blood cultures and lactate. Fluid resuscitation begun. Ventilator orders entered. Tylenol order for fever. Thick secretions via ET tube. Sent for culture. CXR with pneumonia. ET good and CVP good. RUL and RML infiltrates. Antibiotics ordered and begun. BP transiently drop (prior to full bolus and when versed increased). BP better after bolus. FIO2 decreased. Sedated well. HR now not tachycardic. 19:35. Sedated. Admit ICU Dr. Grewal. Laboratory Tests Test 01/07/19 16:40 01/07/19 17:15 01/07/19 17:53 White Blood Count 15.0 K/UL (4.8-10.8) H Red Blood Count 3.56 M/UL (4.70-6.10) L Hemoglobin 10.2 G/DL (14.2-18.0) L Hematocrit 31.8 % (42.0-52.0) L Mean Corpuscular Volume 89 FL (80-99) Mean Corpuscular Hemoglobin 28.6 PG (27.0-31.0) Mean Corpuscular Hemoglobin Concent 32.0 G/DL (32.0-36.0) Red Cell Distribution Width 16.6 % (11.6-14.8) H Platelet Count 219 K/UL (150-450) Mean Platelet Volume 6.6 FL (6.5-10.1) Neutrophils (%) (Auto) 80.3 % (45.0-75.0) H Lymphocytes (%) (Auto) 3.1 % (20.0-45.0) L Monocytes (%) (Auto) 15.2 % (1.0-10.0) H Eosinophils (%) (Auto) 0.3 % (0.0-3.0) Basophils (%) (Auto) 1.2 % (0.0-2.0) Prothrombin Time 9.9 SEC (9.30-11.50) Prothrombin Time INR 0.9 (0.9-1.1) PTT 23 SEC (23-33) Sodium Level 136 MMOL/L (136-145) Potassium Level 4.2 MMOL/L (3.5-5.1) Chloride Level 98 MMOL/L (98-107) Carbon Dioxide Level 36 MMOL/L (21-32) H Anion Gap 2 mmol/L (5-15) L Blood Urea Nitrogen 14 mg/dL (7-18) Creatinine 0.8 MG/DL (0.55-1.30) Estimate Glomerular Filtration Rate mL/min (>60) Glucose Level 120 MG/DL (74-106) H Lactic Acid Level 0.60 mmol/L (0.4-2.0) Calcium Level 9.0 MG/DL (8.5-10.1) Total Bilirubin 0.5 MG/DL (0.2-1.0) Aspartate Amino Transferase (AST) 28 U/L (15-37) Alanine Aminotransferase (ALT) 17 U/L (12-78) Alkaline Phosphatase 163 U/L (46-116) H Total Creatine Kinase 38 U/L (26-308) Troponin I 0.000 ng/mL (0.000-0.056) Pro-B-Type Natriuretic Peptide 1034 pg/mL (0-125) H Total Protein 7.7 G/DL (6.4-8.2) Albumin 2.8 G/DL (3.4-5.0) L Globulin 4.9 g/dL Albumin/Globulin Ratio 0.6 (1.0-2.7) L Urine Color Yellow Urine Appearance Clear Urine pH 6 (4.5-8.0) Urine Specific [place] 1.015 (1.005-1.035) Urine Protein 2+ (NEGATIVE) H Urine Glucose (UA) Negative (NEGATIVE) Urine Ketones Negative (NEGATIVE) Urine Blood Negative (NEGATIVE) Urine Nitrite Negative (NEGATIVE) Urine Bilirubin Negative (NEGATIVE) Urine Urobilinogen 4 MG/DL (0.0-1.0) H Urine Leukocyte Esterase 1+ (NEGATIVE) H Urine RBC 0-2 /HPF (0 - 0) H Urine WBC 2-4 /HPF (0 - 0) Urine Squamous Epithelial Cells None /LPF (NONE/OCC) Urine Bacteria Few /HPF (NONE) Arterial Blood pH 7.442 (7.350-7.450) Arterial Blood Partial Pressure CO2 42.7 mmHg (35.0-45.0) Arterial Blood Partial Pressure O2 88.2 mmHg (75.0-100.0) Arterial Blood HCO3 28.5 mmol/L (22.0-26.0) H Arterial Blood Oxygen Saturation 96.8 % (95-100) Arterial Blood Base Excess 4.0 (-2-2) H Cameron Test Positive EKG Diagnostic Results Rate: tachycardiac Rhythm: NSR ST Segments: no acute changes Rhythm Strip Diag. Results EP Interpretation: yes Rhythm: no PVC's, no ectopy, other - ST Chest X-Ray Diagnostic Results Chest X-Ray Diagnostic Results : Chest X-Ray Ordered: Yes # of Views/Limited/Complete: 1 View Indication: Shortness of Breath Interpretation: no effusion, no pneumothorax, other - ET OK and CVP OK. RUL and RML infiltrates Impression: Other Electronically Signed by: Electronically signed by Justus Arrieta MD Last Vital Signs Date Time Temp Pulse Resp B/P (MAP) Pulse Ox O2 Delivery O2 Flow Rate FiO2 01/08/19 00:00 40 01/07/19 23:27 77 16 01/07/19 21:33 Mechanical Ventilator Mechanical Ventilator 01/07/19 20:23 97.0 106/67 100 15.0 Status: improved Disposition: ADMITTED INPATIENT Condition: Critical Referrals: Justus Grewal MD (PCP) Justus Arrieta MD January 07, 2019 16:56
[2019-01-07] MEDS ORDERED: Acetaminophen 650 MG SUPP RECTAL ONE ×2 (16:57→17:00)
[2019-01-07] MEDS: Albuterol ud Inhalation HHN SCH ×3 (16:58→19:09)
--- NOTE | 2019-01-07 17:00 | NUR ---
ED Nurse Note: noted pt awake,trying to pull et tube and central line, nonbehavioral restraints in place, ERMD notified, versed 1mg order via iv received. will cont monitor
[2019-01-07 17:01] LABS: BASOPHILS % (AUTO) 1.2 % (0.0-2.0); EOSINOPHILS % (AUTO) 0.3 % (0.0-3.0); HEMATOCRIT 31.8 % (42.0-52.0); HEMOGLOBIN 10.2 G/DL (14.2-18.0); LYMPHOCYTES % (AUTO) 3.1 % (20.0-45.0); MEAN CORPUSCULAR VOLUME 89 FL (80-99); MONOCYTES % (AUTO) 15.2 % (1.0-10.0); NEUTROPHILS % (AUTO) 80.3 % (45.0-75.0); PLATELET COUNT 219 K/UL (150-450); RED BLOOD COUNT 3.56 M/UL (4.70-6.10); RED CELL DISTRIBUTION WIDTH 16.6 % (11.6-14.8)
[2019-01-07] MEDS ORDERED: Midazolam 2mg/2ml Inj IM STA (17:03)
--- NOTE | 2019-01-07 17:06 | NUR ---
ED Nurse Note: ovalles 16 fr inserted per ERMD order, 10cc ns inserted and secured with dressig, pt tolerated well.
[2019-01-07 17:08] LABS: INR 0.9 (0.9-1.1)
[2019-01-07] MEDS ORDERED: Piperacillin/Tazobactam 3.375 GM in NS 110 ML IVPB ONE (17:15)
[2019-01-07 17:18] LABS: ANION GAP 2 mmol/L (5-15); BLOOD UREA NITROGEN 14 mg/dL (7-18); CARBON DIOXIDE 36 MMOL/L (21-32); CHLORIDE 98 MMOL/L (98-107); CREATININE 0.8 MG/DL (0.55-1.30); POTASSIUM 4.2 MMOL/L (3.5-5.1); SODIUM 136 MMOL/L (136-145)
[2019-01-07] MEDS ORDERED: Zosyn 3.375gm inj ONE (17:20)
[2019-01-07 17:28] LABS: ALANINE AMINOTRANSFERASE 17 U/L (12-78); ALBUMIN 2.8 G/DL (3.4-5.0); ALBUMIN/GLOBULIN RATIO 0.6 (1.0-2.7); ALKALINE PHOSPHATASE 163 U/L (46-116); ASPARTATE AMINO TRANSFERASE 28 U/L (15-37); BILIRUBIN,TOTAL 0.5 MG/DL (0.2-1.0); CREATINE KINASE 38 U/L (26-308)
[2019-01-07] MEDS ORDERED: Midazolam 2mg/2ml Inj IVP ONE (17:30)
--- NOTE | 2019-01-07 17:35 | NUR ---
ED Nurse Note: CENTRAL LINE INSERTED BY ERMD ON RIGHT INTERNAL JUGULAR.
--- NOTE | 2019-01-07 17:37 | NUR ---
ED Nurse Note: called pharmacy for restock zosyn and unable to scan versed drip.
[2019-01-07] MEDS: Versed 50mg/D5W 100ml 100 ML IVPB ONE ×2 (17:45→18:53)
--- NOTE | 2019-01-07 17:45 | NUR ---
ED Nurse Note: called xray for confirmation of et tube and central line.
[2019-01-07 17:47] LABS: APPEARANCE,URINE CLEAR; BILIRUBIN, URINE NEGATIVE (NEGATIVE); GLUCOSE, URINE (UA) NEGATIVE (NEGATIVE); KETONES,URINE NEGATIVE (NEGATIVE); LEUKOCYTE ESTERASE ,URINE 1+ (NEGATIVE); NITRITE,URINE NEGATIVE (NEGATIVE); PH,URINE 6 (4.5-8.0); PROTEIN,URINE 2+ (NEGATIVE); UROBILINOGEN,URINE 4 MG/DL (0.0-1.0)
[2019-01-07 17:51] LABS: COLOR,URINE YELLOW
--- NOTE | 2019-01-07 18:00 | NUR ---
ED Nurse Note: called pharmacy and notified versed rey still unable to scan..
--- NOTE | 2019-01-07 18:13 | NUR ---
ED Nurse Note: pt cleaned and changed,noted wound on stg 1 sacral, back, right and left heel, and open lesion right lower ext anterior. noted sutures on right upper arm with dressing. noted black discolored mcgrath possible needle mcgrath on BUE/BLE.
--- NOTE | 2019-01-07 18:30 | NUR ---
ED Nurse Note: noted pt sys 80s, ermd aware of pt's condition, continue fluids as orderd. will cont monitor.
--- NOTE | 2019-01-07 18:30 | NUR ---
ED Nurse Note: called to give report, per RN rama room currently unavailable and receiving nurse cannot take report at this time, charge nurse notified.
--- NOTE | 2019-01-07 18:40 | NUR ---
ED Nurse Note: per ERMD order, fio2 decrase 30%.
--- NOTE | 2019-01-07 18:40 | NUR ---
ED Nurse Note: pt cleaned and changed.
--- NOTE | 2019-01-07 18:45 | NUR ---
ED Nurse Note: called back to give report, receiving nurse cannot take the report due to room not available.
--- NOTE | 2019-01-07 19:35 | NUR ---
RESPIRATORY NOTE: PT. RECEIVED STABLE, SEDATED ON AC/VC 16, 400, 40% +0. ALARMS ON AND AUDIBLE. VENT PLUGGED INTO RED OUTLET. AMBU AT BEDSIDE. PT IS BEING VENTILATED VIA AN ETT SIZE 7.5, 23 CM @ THE LIP. BILATERAL RHONCHI BREATH SOUNDS HEARD UPON AUSCULTATION. SMALL AMOUNT OF WHITE YELLOW THICK SECRETIONS OBTAINED UPON SUCTIONING. BILATERAL SOFT WRIST RESTRAINS ARE SECURELY IN PLACED. NO S/S OF RESPIRATORY DISTRESS NOTED AT THIS TIME. WILL CONTINUE TO MONITOR.
--- NOTE | 2019-01-07 19:40 | NUR ---
ED Nurse Note: report given to RN Allyson from ICU, RT contacted.
--- NOTE | 2019-01-07 20:25 | NUR ---
ED Nurse Note: pt transferred to ICU, care endorsed to ANN SAUNDERS, all belongings sent w/ pt.
--- NOTE | 2019-01-07 20:30 | NUR ---
NURSE NOTES: Admitted 73 year old male patient from ER. Endorsement received from ANN Moraes. Patient sedated. Opens eyes to shaking. Orally intubated with ET 7.5, 23 lipline. AC 16 Vt 400, 40% FiO2. 995 saturation on the monitor, sinus rhythm. With Right IJ double lumen. Flushing well with good backflow. Ongoing Versed drip at 5mg/hr and NS at 300ml/hr. Kimball F16 connected to urine bag. Noted with ecchymosis under the right eye, right upper arm sutures x 2, right arm scattered ecchymosis, sacral stage 1, midspinal back stage 1, right leg stage 2. Pictures taken and uploaded. Dressing changed. Bed bath given. Head on bed elevated, locked and in low position. Bed alarm on. Seizure precautions implemented. Addendum: 01/08/19 at 0105 by WILLIAM DUNLAP RN NURSE NOTES: Right IJ Triple lumen
--- NOTE | 2019-01-07 20:45 | NUR ---
NURSE NOTES: Attempted to insert OGT and NGT by 2 RNs however, unsuccessful
--- NOTE | 2019-01-07 21:00 | NUR ---
NURSE NOTES: Called Dr. Grewal for admission orders. Dr. Stewart covering for Dr. Grewal answered the phone. Orders read back and Dr. Stewart verified orders.
[2019-01-07] MEDS ORDERED: LORazepam Inj 2mg/ml 1ml IV PRN (21:09)
[2019-01-07] MEDS ORDERED: Albuterol/Ipratropium 3ml neb HHN PRN (21:09)
--- NOTE | 2019-01-07 21:15 | NUR ---
NURSE NOTES: Spoke with the Pharmacist on duty. As per her to continue the bag of Versed that came from ER and there's another bag of Versed in the Pyxis when the current bag is finished.
[2019-01-07] MEDS: Heparin 5000 units/ml inj SUBQ SCH (21:21)
[2019-01-07] MEDS: Vancomycin 750mg/NS 275ml IVPB SCH ×2 (22:31)
--- NOTE | 2019-01-07 23:00 | NUR ---
NURSE NOTES: Patient sedated. Versed drip at 4mg/hr to keep RASS -2. No seizure activity
[2019-01-08] VITALS (50 sets, daily range): BP systolic 85–120; BP diastolic 50–89
--- NOTE | 2019-01-08 01:00 | NUR ---
NURSE NOTES: On Versed 2mg/hr. No shortness of breath. Arousable by light touch. Secretions suctioned.
--- NOTE | 2019-01-08 01:00 | Consultation ---
DATE OF CONSULTATION: 01/07/2019 CARDIOLOGY CONSULTATION CONSULTING PHYSICIAN: Justus Grewal M.D. REFERRING PHYSICIAN: Varun Stewart M.D. REASON FOR CONSULTATION: Elevated natriuretic peptide in the setting of respiratory failure. HISTORY OF PRESENT ILLNESS: This is a 73-year-old male with advanced obstructive lung disease, methadone dependence, severe pulmonary hypertension, and history of congestive heart failure due to diastolic dysfunction predominantly. He has been in and out of the hospital for the past several months due to complications of his lung disease. Several weeks ago, he was hospitalized at [facility] following a fall with trauma and associated fracture of his right upper extremity. He stabilized and returned to the halfway facility for rehab. Today, he was noted to have possible seizure activity and associated shortness of breath. He was hypoxic and placed on a non-rebreather mask. He was transported by paramedics with no seizure activity noted. In the emergency room, the patient remained withdrawn, lethargic and obtunded, and required intubation and initiation of mechanical ventilation. PAST MEDICAL HISTORY: 1. Hypertension. 2. Congestive heart failure. 3. Type 2 diabetes mellitus. 4. Right upper extremity fracture. 5. Facial contusion. 6. Possible seizure disorder. 7. Methadone dependence. 8. History of heroin abuse. 9. History of alcoholism. SOCIAL HISTORY: Prior smoker. History of alcoholism. History of heroin abuse. FAMILY HISTORY: Noncontributory. MEDICATIONS: Reviewed and reconciled. ALLERGIES: None known. REVIEW OF SYSTEMS: Not obtainable from the patient. However, review of records and prior hospitalizations x20 minutes including records from [facility] stays and [facility] stays were performed and pertinent data as outlined above. PHYSICAL EXAMINATION: VITAL SIGNS: Blood pressure 100/50, heart rate 130, respiratory rate 18, afebrile. LUNGS: Diminished breath sounds. Scattered rhonchi. Thin secretions. CARDIAC: Regular rhythm, rapid rate. Normal S1, S2. ABDOMEN: Soft. EXTREMITIES: There is right lower extremity wound and 1+ edema of the right upper extremity. Distal pulses are palpable. There is a central line and the right IJ with no bleeding at the site. LABORATORY AND DIAGNOSTIC DATA: EKG reveals sinus rhythm with nonspecific ST-T changes. Chest x-ray reveals right middle and upper lobe infiltrates. Urinalysis reveals 2 to 4 white cells. Troponin 0. Pro-natriuretic peptide 1034. Albumin 2.8. Lactic acid normal. BUN 14, creatinine 0.8, potassium 4.2. White count 15, hemoglobin 10.2. ABG post-intubation 7.44, 43, and 88. IMPRESSION: 1. Acute hypoxic respiratory failure with hypercarbia. 2. Acute on chronic respiratory acidosis. 3. Metabolic and toxic encephalopathy. 4. Healthcare-acquired aspiration pneumonia. 5. Acute on chronic diastolic congestive heart failure. 6. Moderate protein-calorie malnutrition. 7. Methadone dependence. 8. Possible seizure. 9. Chronic neuropathy with pain. 10. Type 2 diabetes mellitus. 11. Recent fall with trauma and fracture as noted above. 12. History of severe pulmonary hypertension. 13. Critical and guarded. PLAN: 1. Ventilator support. 2. Antimicrobials. 3. Steroids. 4. Inhaled bronchodilators. 5. Sputum cultures. 6. Broad-spectrum antibiotics to be adjusted once culture results available. 7. Hold diuresis at this time. 8. DVT and stress ulcer prophylaxes. 9. Consider EEG. 10. Seizure precautions. Justus Grewal M.D. DR: IVAN JOB#: [id number] CC:
[2019-01-08] MEDS: Versed 50mg/D5W 100ml 100 ML IVPB PRN ×2 (01:38→22:03)
[2019-01-08] MEDS: Solu-MEDROL 125mg Inj IVP SCH ×3 (01:39→18:43)
[2019-01-08] MEDS: Piperacillin/Tazobactam 3.375 GM in NS 110 ML IVPB SCH ×3 (01:59→18:43)
--- NOTE | 2019-01-08 03:00 | NUR ---
NURSE NOTES: Bed bath done. Blood sample collected and sent to the lab. Repositioned patient.
--- NOTE | 2019-01-08 04:50 | NUR ---
NURSE NOTES: Received patient from Allyson RN, patient in bed with eyes closed, sedated. orally intubated on AC 16 Vt 400, fio2 40%. NO NGT or OGT at this time due to difficulty inserting. Right IJ TLC running Versed at this time @ 2 mg/hr. Pt on Bilateral soft wrist restraints. Right Eye noted with Periorbital ecchymosis. Kimball cath draining by gravity at this time. Bed in lowest positions, side rails padded, upx3. Bed locked and bed alarm on. No signs of distress noted. Will continue to monitor.
--- NOTE | 2019-01-08 04:53 | NUR ---
HAND-OFF: Report given to ANN Al for continuity of care.
[2019-01-08 05:02] LABS: HEMATOCRIT 28.9 % (42.0-52.0); MEAN CORPUSCULAR VOLUME 92 FL (80-99); PLATELET COUNT 155 K/UL (150-450); RED BLOOD COUNT 3.12 M/UL (4.70-6.10); RED CELL DISTRIBUTION WIDTH 17.3 % (11.6-14.8); WHITE BLOOD COUNT 8.7 K/UL (4.8-10.8)
[2019-01-08 05:21] LABS: ALANINE AMINOTRANSFERASE 11 U/L (12-78); ALBUMIN 2.1 G/DL (3.4-5.0); ALBUMIN/GLOBULIN RATIO 0.5 (1.0-2.7); ALKALINE PHOSPHATASE 129 U/L (46-116); ANION GAP 5 mmol/L (5-15); ASPARTATE AMINO TRANSFERASE 15 U/L (15-37); BILIRUBIN,TOTAL 0.4 MG/DL (0.2-1.0); BLOOD UREA NITROGEN 12 mg/dL (7-18); CALCIUM 8.1 MG/DL (8.5-10.1); CARBON DIOXIDE 30 MMOL/L (21-32); CHLORIDE 105 MMOL/L (98-107); CREATININE 0.6 MG/DL (0.55-1.30); POTASSIUM 4.5 MMOL/L (3.5-5.1); SODIUM 139 MMOL/L (136-145)
--- NOTE | 2019-01-08 06:00 | NUR ---
NURSE NOTES: Patient noted to be walking up and trying to sit up. Also noted to be pulling on restraints at this time. Will continue to monitor
--- NOTE | 2019-01-08 07:24 | NUR ---
RESPIRATORY NOTE: received pt on current vent settings, intubated with 7.[address] 24 cm at the lip. ETT secured via anchor fast with no redness around face, mouth, neck area. vent is plugged into the red outlet with alarms on and audible and ambu bag at bedside. will cont to monitor.
--- NOTE | 2019-01-08 07:34 | NUR ---
HAND-OFF: Report given to Adela JUAREZ using SBAR.
--- NOTE | 2019-01-08 07:35 | NUR ---
NURSE NOTES: Received pt and [id number] report from Mikaela JUAREZ. Pt is asleep, awakens to touch. Pt is orally intubated ETT 7.5 at 23cm left lipline, with AC16, VT400 and FIO2 40% with O2sat 100%. retail cosmetics sales counter manager displays NSR with heart rate fluctuating in the 70's-80's. Central line on right IJ TLC, infusing Versed at 3mg/hour, and TKO. Bilateral soft wrist restraints are present, with skin at restraint site within normal limits. When awake, pt attempts to pull upper body to sit up in bed pull out tubing. Abdomen is flat, soft and nontender to touch with hypoactive bowel sounds present in all four quadrants. Kimball catheter in place, draining mildly cloudy/yellow urine. Skin has right eye periorbital ecchymosis, right UA sutures, bilateral heel erythema, right dean skin tear and sacral redness. Seizure precautions in place. Head of bed at 30degress, with bed locked, three side rails up and call light within reach. Will continue to monitor pt and follow plan of care per MD orders and protocol. Addendum: 01/08/19 at 0956 by THERESE DYKES RN Currently NPO. Bounding radial pulses. No edema present on extremities. No adventitious lung sounds present at this time.
--- NOTE | 2019-01-08 08:20 | NUR ---
NURSE NOTES: Order received from Dr Morris for ABGs. Will process, follow and report results once available. Addendum: 01/08/19 at [address] Morris was informed of ABG results. No new orders given.
[2019-01-08] MEDS: Pantoprazole Inj IVP SCH (09:06)
[2019-01-08] MEDS: Heparin 5000 units/ml inj SUBQ SCH ×2 (09:08→21:00)
[2019-01-08] MEDS ORDERED: NS 275ml ONE (09:38)
[2019-01-08] MEDS ORDERED: Tubing IV Secondary IV ONE (09:38)
--- NOTE | 2019-01-08 10:00 | NUR ---
NURSE NOTES: Oral care given. Pt suctioned and repositioned. Pt awakens and attempts to sit up in bed and pull out his tubing. Currently on Versed 3mg/hour and bilateral soft wrist restraints in place, with skin integrity within normal limits. VS stable.
--- NOTE | 2019-01-08 11:46 | Diagnostic Imaging Report ---
Indication: Dyspnea Comparison: 12/06/2018 A single view chest radiograph was obtained. Findings: Right upper lobe groundglass opacities and streaky perihilar infiltrate suspected. Right jugular line is in good position with the tip projected over the SVC. Endotracheal tube is about 2 cm above the simeon. The heart is enlarged. Bones are osteopenic. IMPRESSION: Patchy bilateral infiltrates. Superimposed pulmonary edema not excluded. Tubes and lines satisfactory
--- NOTE | 2019-01-08 12:30 | NUR ---
NURSE NOTES: Pt is laying with head of bed at 30degrees. Attempts to sit up in bed and pull out ET tubing despite reorientation and distraction. Pt is intubated ETT 7.5 at 23cm left lipline, and maintained setting of AC16, VT400 and FIO2 40% with O2sat 100%. laboratory monitor displays NSR to ST with heart rate fluctuating in the 90's to 100's. Central line on right IJ TLC, patent/intact, still infusing Versed at 3mg/hour, and TKO. Bilateral soft wrist restraints are present, with skin at restraint site within normal limits. Kimball catheter continues to drain mildly cloudy/yellow urine with output of 30-70ml/hour. Skin has right eye periorbital ecchymosis, right UA sutures, bilateral heel erythema, right dean skin tear and sacral redness. No edema noted on extremities. Seizure precautions in place. Currently NPO. Abdomen is flat, soft and nontender to touch, with hypoactive bowel sounds present. Bed is locked, three side rails up and call light within reach. VS stable. Pt repositioned, suctioned and oral care given. Will continue with monitoring and plan of care.
--- NOTE | 2019-01-08 13:41 | NUR ---
*-* INSURANCE *-* ALL CLICNICALS AND REVIEWS HAVE BEEN FAXED TO: [facility]; CIARA...COVERING FOR YOGESH P- [phone] F- [phone]....REVIEW/CLINICAL
--- NOTE | 2019-01-08 14:00 | NUR ---
NURSE NOTES: Skin assessment was done again, this time with the wound care nurse at bedside, who agreed with the earlier interpretation of findings. Optifoam dressing was applied to bilateral heels and elevated on two pillows. Dressing was changed on the sacral and mid-spinal areas which currently have erythema and to protect from any tears. P200 mattress has been ordered; awaiting for delivery.
--- NOTE | 2019-01-08 14:21 | NUR ---
CASE MANAGEMENT:REVIEW 73 YR OLD MALE BIBA FROM [facility] CC: ALOC. POSSIBLE SEIZURE SI: RESPIRATORY FAILURE. COPD 101.9 130 18 110/60 92% ON 15L NON REBREATHER WBC+15.0 H/H-10.2/31.8 PCO2+57.9 IS: INTUBATED AND ATTACHED TO VENTILATOR DUONEB HHN IV SOLUMEDROL 1L NS BOLUS CHEST XRAY BLOOD CX : TO ICU INTERQUAL CRITERIA MET
--- NOTE | 2019-01-08 14:59 | Physician Query ---
--------- THIS DOCUMENT IS A PERMANENT PART OF THE MEDICAL RECORD --------- PLEASE COMPLETE DOCUMENT BEFORE SIGNING Dear Dr. Justus Grewal Date: 01/08/19 [employer]/CDS Name: Naya Ying Exercise your independent professional judgment when responding to the query. Questions asked do not imply a particular answer is desired or expected. We greatly appreciate your clarification on this issue. CLINICAL DOCUMENTATION STATES:HNP: 73-year-old male with advanced obstructive lung disease, methadone dependence...noted to have possible seizure activity and associated shortness of breath...Impression: Acute hypoxic respiratory failure with hypercarbia...Metabolic and toxic encephalopathy...Healthcare- acquired aspiration pneumonia Vitals on admission: Tmax 101.9 HR 130 RR 30 Labs WBC 15.0 Treatment: IV vanc and pip-tazo, mechanical ventilation Please respond to the following question: Is there a diagnosis specific to these symptoms or values? If so please state below. PHYSICIAN RESPONSE: [x] Sepsis [] Severe Sepsis [] Severe Sepsis with shock [] SIRS due to aspiration pneumonia, without sepsis [] Other: [] Unknown Condition Present on Admission: [x] Yes [] No []Clinically Undeterminable Please also document in your Progress Notes and/or Discharge Summary and indicate if the condition was present on admission. Signature Date MTDD
--- NOTE | 2019-01-08 15:02 | NUR ---
NURSE NOTES:WOUND CARE NOTES:Pt presented on admission with #3 areas of dark pigmentations without fluctuance thoracic spine. Proximally but in close proximity an area of non-blanchable erythema T- spine. Non-Blanchable erythema with shearing noted to sacrum. Maroon discoloration with fluctuance R heel. Non-blanchable erythema with fluctuance noted to L heel. Resolving skin tear noted to R tibia. Base of wound with pink epithelial and is dry. No other skin concerns noted. Recommendations: Apply Cavilon Skin Barrier to both heels. Cover each heel with Cavilon Skin Barrier. Cover each heel with Optifoam drsg. Change every 7 days and prn. Off-load heels with pillow. Apply Triad paste to sacrum. Cover with Optifoam drsg. Change every 7 days and prn. Apply Cavilon Skin Barrier to T-Spine. Cover with Optifoam drsg. Change every 7 days and prn. APM/MARLIN Mattress. Off-Load heels with pillow. Reposition at least every 2hours or as tolerated.
--- NOTE | 2019-01-08 16:00 | NUR ---
NURSE NOTES: Pt is attempting to sit up in bed by pulling-up his upper body while also reaching out his hands towards the ET tubing despite reorientation and distraction. Charge nurse also at bedside, assisting with repositioning of pt for comfort. Versed dose has been titrated up due to pt's increased agitation. carpet inspector displays NSR to ST with heart rate fluctuating in the 90's to 100's. Bilateral soft wrist restraints are present, with skin at restraint site within normal limits. Kimball catheter continues to drain mildly cloudy/yellow urine with output of 30-70ml/hour. Seizure precautions in place due to seizure activity prior to admit during ambulance transport; howevere no episodes of seizures during my shift. Currently NPO. Abdomen is flat, soft and nontender to touch, with hypoactive bowel sounds present. Bed is locked, three side rails up and call light within reach. VS stable. Pt repositioned, suctioned and oral care given. Will continue with monitoring and plan of care.
--- NOTE | 2019-01-08 16:15 | History and Physical Report ---
DATE OF ADMISSION: 01/07/2019 CHIEF COMPLAINT: Respiratory failure, shock, sepsis, COPD exacerbation. HISTORY OF PRESENT ILLNESS: The patient is a 73-year-old male. He has a history of COPD, hypertension. He has a history of chronic pain on methadone. He was transferred from a [facility] facility after he was found poorly responsive and hypotensive. He was transferred to the emergency room where he was immediately intubated. He had x-ray evidence of pneumonia. He was also hypotensive. The patient was bolused fluids. He has been started on broad-spectrum IV antibiotics. He is now admitted for further evaluation and care. He is currently sedated on Versed. Laboratories upon admission were significant for a leukocytosis of 15,000. He also had bilateral infiltrates on x-ray. PAST MEDICAL HISTORY: As above. PAST SURGICAL HISTORY: None. CURRENT MEDICATIONS: Reconciled and reviewed. ALLERGIES: None. FAMILY HISTORY: None. SOCIAL HISTORY: The patient has a long history of smoking. No alcohol. He has a history of methadone dependence. REVIEW OF SYSTEMS: Unobtainable as the patient is nonverbal. PHYSICAL EXAMINATION: VITAL SIGNS: Temperature 97.5, pulse 71, respirations 16, blood pressure 91/58. GENERAL: The patient is a chronically ill-appearing thin male, in no apparent distress. He is sedated. NECK: Supple. HEART: Regular rate and rhythm. LUNGS: Significant diminished breath sounds. ABDOMEN: Soft, nontender, and nondistended. EXTREMITIES: Without clubbing, cyanosis, or edema. LABORATORY DATA: Sodium 139, potassium 4.5, chloride 105, bicarb 30, BUN was 12, creatinine 0.6. Troponin was 0.0. Albumin 2.1. White count 15,000, hemoglobin 10. Chest x-ray showed bilateral infiltrates. ASSESSMENT: This is a 73-year-old male with complaints of respiratory failure. PROBLEM LIST: 1. Respiratory failure. 2. Shock. 3. Possible sepsis. 4. Pneumonia. PLAN: 1. IV hydration. 2. Ventilatory support. 3. Respiratory treatments. 4. Broad-spectrum IV antibiotics. 5. Follow up cultures. 6. Monitor chest x-ray. 7. Monitor blood gas. 8. DVT and stress ulcer prophylaxes. 9. Cardiology and Pulmonary consultations have been obtained. Varun Stewart M.D. DR: CAROLINE JOB#: [id number] CC:
--- NOTE | 2019-01-08 16:45 | Consultation ---
DATE OF CONSULTATION: 01/08/2019 PULMONARY CONSULTATION CONSULTING PHYSICIAN: Abhijit Morris M.D. HISTORY OF PRESENT ILLNESS: This is a 73-year-old male with a history of advanced COPD, who is admitted to the hospital with respiratory failure. He is intubated and currently in ICU. I have seen him several times in the past including at this hospital and at [facility]. He has a history of advanced lung disease and has been on BiPAP in the past. He also has pulmonary hypertension, CHF, and methadone dependence. The patient also was noted to have seizure activity and was hypoxic and placed on non-rebreather mask. PAST MEDICAL HISTORY: 1. Hypertension. 2. CHF, diastolic dysfunction. 3. Diabetes mellitus. 4. Previous right upper extremity fracture. 5. Seizure disorder. 6. Methadone dependence. 7. History of heroin abuse. 8. Alcoholism. SOCIAL HISTORY: He is a [facility] resident. MEDICATIONS: Home medication reviewed and reconciled in the chart. ALLERGIES: None. PHYSICAL EXAMINATION: GENERAL: Revealed a 73-year-old male. HEENT: Unremarkable. Endotracheal tube is noted. CHEST: Decreased breath sounds bilaterally. HEART: Normal heart sounds. ABDOMEN: Soft. EXTREMITIES: There is no edema. There is right lower extremity wound and lymphedema of right upper extremity. Central line in the right IJ noted. LABORATORY DATA: Lab testing is reviewed. White count is 8.7, hemoglobin 9, and platelet count is normal. Chemistries are normal with glucose of 130. ABG - pH 7.32, pCO2 57, and pO2 89. Urinalysis is negative. Coags are negative. IMAGING STUDIES: X-ray of chest was obtained in the past, which was unremarkable. IMPRESSION: 1. Respiratory failure. 2. Advanced chronic obstructive pulmonary disease. 3. Hypoxemia. 4. Possible seizure. 5. Pulmonary hypertension. 6. Diastolic heart failure. DISCUSSION: Admit to the hospital. We will continue vent on AC mode. We will check ABG. We will need to increase FiO2. Continue breathing treatments and broad spectrum antibiotics, follow carefully. Abhijit Morris M.D. DR: TOMMY JOB#: [id number] CC:
--- NOTE | 2019-01-08 18:00 | NUR ---
NURSE NOTES: Oral care given and pt suctioned. Pt cleaned and repositioned. VS stable.
--- NOTE | 2019-01-08 19:18 | NUR ---
HAND-OFF: Report given to Brayden JUAREZ. Endorsed plan of care; pt currently in stable condition.
--- NOTE | 2019-01-08 19:30 | NUR ---
NURSE NOTES: Recvd.on a vent.orally intubated.See Settings.lungs diminished BS at bases.Sat.-100%.Asleep,Occ.restless/Trashing in bed.On bila.Soft wrist restraints prev.self injury.Sedated on versed drip.F/Cath.patent.See I/O.
[2019-01-08] MEDS: Dyna-Hex 2% Top Sol 2oz TOPIC SCH (19:53)
[2019-01-08] MEDS: Vancomycin 750mg/NS 275ml IVPB SCH ×2 (22:38)
--- NOTE | 2019-01-08 22:43 | NUR ---
NURSE NOTES: Restless,agitated trashing in bed.Repositioned Backrub with lotion.Suctioned.Due meds admin.Re-assured,Re-oriented.Versed drip >3mg/hr.Maintain on bila.soft wrist restraints.
[2019-01-09] VITALS (48 sets, daily range): BP systolic 116–150; BP diastolic 65–87
--- NOTE | 2019-01-09 00:10 | NUR ---
NURSE NOTES: Repositioned,Suctioned.Antonio.vent.settings.Sat.-100%.No SZ.activity noted.Status same.
--- NOTE | 2019-01-09 02:00 | NUR ---
NURSE NOTES: Pos.chg.Kept comfortable.Occ.will try sit up in bed and reach for the ETT.Maintain on restraints.Cont.Plan of care.
[2019-01-09] MEDS: Solu-MEDROL 125mg Inj IVP SCH ×3 (02:36→17:18)
[2019-01-09] MEDS: Piperacillin/Tazobactam 3.375 GM in NS 110 ML IVPB SCH ×3 (02:37→17:18)
--- NOTE | 2019-01-09 03:46 | Progress Note ---
DATE: 01/08/2019 CARDIOLOGY PROGRESS NOTE SUBJECTIVE: The patient remains orally intubated and mechanically ventilated in the intensive care unit in critical condition with guarded prognosis. He remains poorly responsive. OBJECTIVE: VITAL SIGNS: Blood pressure 113/67, pulse 77, and respirations 16. Afebrile. HEENT: Thin trach secretions. LUNGS: Bilateral breath sounds with rhonchi. HEART: Regular rhythm and rate. Normal S1, S2. ABDOMEN: Soft. EXTREMITIES: With stasis derm changes, but no edema. LABORATORY DATA: White count down to 8.7 and hemoglobin 9. ABG, pH 7.32, pCO2 58, and pO2 90. Sodium 139, potassium 4.5, BUN 12, creatinine 0.6, and bicarb 30. Glucose 130. Troponin negative. Albumin 2.1. IMPRESSION: 1. Respiratory failure. 2. Possible seizures. 3. Chronic obstructive pulmonary disease exacerbation. 4. Chronic diastolic congestive heart failure. 5. Pulmonary hypertension. 6. Methadone dependence. 7. Hypoxia. 8. Acute on chronic respiratory acidosis. PLAN: 1. Weaning efforts. 2. Bronchodilators. 3. Intravenous steroids. 4. Empiric antibiotics. 5. Follow up sputum cultures. 6. Monitor volume status and cardiorenal parameters and initiate diuresis based on clinical parameters. 7. Ventilator adjustments based on acid-base assessments. Justus Grewal M.D. DR: BRIDGET JOB#: [id number] CC:
--- NOTE | 2019-01-09 04:30 | NUR ---
NURSE NOTES: Mickey Ruiz.Placed on P-200 airmattress.Suctioned.Tolerated vent. settings.Sat. 99-100%.VSS.Scope pattern same.Slept well.Versed drip at 3mg/hr comfortable.
--- NOTE | 2019-01-09 05:47 | NUR ---
Pt. remains on mechanical ventilation AC16/VT400/FiO2.40 with size 7.5@24cm jennifer, suctioned moderate amount of thick yellow secretions. Lung sounds been rhonchi t/o shift. No vent weaning ordered at the time. Will continue to monitor.
--- NOTE | 2019-01-09 07:00 | NUR ---
Received Patient on Vent settings ACVC RR 16, VT 400, FIO2 40%, PEEP +0. Intubated with a 7.5 ETT with a lip line at 24cm, secured by anchorfast. Bilateral rhonchi breath sounds heard throughout lung esparza. Suction moderate amount of thick trujillo secretions. Alarms are on and audible. Vent plugged into red outlet. Will continue to closely monitor throughout the day.
--- NOTE | 2019-01-09 07:12 | NUR ---
HAND-OFF: Report given to ANN GOSS.
--- NOTE | 2019-01-09 07:13 | NUR ---
NURSE NOTES: Received pt and [id number] report from Brayden JUAREZ. Pt is asleep/sedated, however awakens to touch. Pt is orally intubated ETT 7.5 at 23cm at right lipline with vent settings of AC16, VT400, Peep0, FIO2 40% with O2Sat 100% with lung sounds of bilateral rhonchi auscultated. media monitor displays SR with heart rate fluctuating in the 60's-70's. Bilateral bounding radial pulses and weak pedal pulses present. Pt has central line on Right IJ TLC, currently infusing Versed at 3mg/hour and TKO. Abdomen is flat, soft and nontender to touch with hypoactive bowel sounds present in all four quadrants. Kimball catheter in place draining mildly cloudy with sediments/yellow urine. Bilateral soft wrist restraints present with skin integrity within normal limits. Skin has right eye periorbital ecchymosis, right UA sutures, sacral and mid-spinal erythema, right dean skin tear and bilateral heel erythema, sites covered with optifoam dressing. No edema noted on extremities. Pt is on P200 mattress with bilateral LE raised on pillow. Bed is locked with three side rails up and call light within reach. Will continue to monitor pt and follow plan of care per MD orders and protocol.
[2019-01-09] MEDS: Pantoprazole Inj IVP SCH (08:13)
[2019-01-09] MEDS: Heparin 5000 units/ml inj SUBQ SCH ×2 (08:14→21:05)
--- NOTE | 2019-01-09 09:00 | NUR ---
NURSE NOTES: Oral care given, pt suctioned and repositioned. VS stable. Observed pt attempting to sit up in bed by pulling his upper body up. Also pt attempted to reach the vent-tubing with his hand during repositioning while one of the restraints was open. Bilateral restraints remain in place, with skin integrity at restraint site within normal limits. Versed drip titrated to maintain RASS score -2. Will continue to monitor. Addendum: 01/09/19 at 1559 by THERESE DYKES RN Pt was seen by Dr Stewart at 0900 this morning. placed order for labs. Order followed. No additional orders at this time.
--- NOTE | 2019-01-09 09:09 | General Progress Note ---
Assessment/Plan Problem List: (1) Diabetes mellitus ICD Codes: E11.9 - Type 2 diabetes mellitus without complications SNOMED: 13869395 (2) Respiratory distress ICD Codes: R06.03 - Acute respiratory distress SNOMED: 143906619 (3) Heroin abuse ICD Codes: F11.10 - Heroin abuse SNOMED: 171582267 (4) CHF (congestive heart failure) ICD Codes: I50.9 - Heart failure, unspecified SNOMED: 64448582 (5) Respiratory failure ICD Codes: J96.90 - Respiratory failure, unspecified, unspecified whether with hypoxia or hypercapnia SNOMED: 804160762 Qualifiers: Qualified Codes: J96.01 - Acute respiratory failure with hypoxia; J96.02 - Acute respiratory failure with hypercapnia (6) Pneumonia involving right lung ICD Codes: J18.9 - Pneumonia, unspecified organism SNOMED: 339528090 Qualifiers: Qualified Codes: J18.9 - Pneumonia, unspecified organism (7) COPD (chronic obstructive pulmonary disease) ICD Codes: J44.9 - Chronic obstructive pulmonary disease, unspecified SNOMED: 08788391 Qualifiers: Qualified Codes: J44.9 - Chronic obstructive pulmonary disease, unspecified Status: stable, progressing Assessment/Plan: cont current rx iv abx iv steroids- wean as able resp rx check labs Subjective ROS Limited/Unobtainable: Yes Constitutional: Reports: fever, malaise HEENT: Reports: no symptoms Cardiovascular: Reports: no symptoms Respiratory: Reports: no symptoms Gastrointestinal/Abdominal: Reports: no symptoms Genitourinary: Reports: no symptoms Neurologic/Psychiatric: Reports: no symptoms Endocrine: Reports: no symptoms Hematologic/Lymphatic: Reports: no symptoms Allergies: Coded Allergies: No Known Allergies (Unverified , 10/17/18) All Systems: reviewed and negative except above Subjective remains intubated. still agitated when sedation weaned down. no overnight events. remains on iv steroids and iv abx Objective Last 24 Hour Vital Signs Date Time Temp Pulse Resp B/P (MAP) Pulse Ox O2 Delivery O2 Flow Rate FiO2 01/09/19 08:00 97.4 62 16 141/72 (95) 100 01/09/19 08:00 40 01/09/19 07:30 63 16 135/69 (91) 100 01/09/19 07:00 64 16 143/76 (98) 100 01/09/19 07:00 16 Mechanical Ventilator 40 01/09/19 06:52 64 16 40 01/09/19 06:30 66 16 136/72 (93) 100 01/09/19 06:00 74 16 136/74 (94) 100 01/09/19 06:00 16 Mechanical Ventilator 40 01/09/19 05:30 83 17 130/68 (88) 99 01/09/19 05:29 87 18 40 40 01/09/19 05:00 91 19 120/80 (93) 100 01/09/19 05:00 19 Mechanical Ventilator 40 01/09/19 04:30 73 16 130/79 (96) 100 01/09/19 04:00 40 01/09/19 04:00 16 Mechanical Ventilator 40 01/09/19 04:00 69 01/09/19 04:00 Mechanical Ventilator Mechanical Ventilator 01/09/19 04:00 97.6 69 16 130/77 (94) 100 01/09/19 03:30 71 16 125/78 (94) 100 01/09/19 03:11 66 16 40 40 01/09/19 03:00 71 16 120/74 (89) 100 01/09/19 03:00 16 Mechanical Ventilator 40 01/09/19 02:30 90 17 120/87 (98) 99 01/09/19 02:00 86 17 134/81 (98) 100 01/09/19 02:00 17 Mechanical Ventilator 40 01/09/19 01:30 71 16 126/80 (95) 100 01/09/19 01:25 76 16 40 40 01/09/19 01:00 73 16 118/71 (87) 100 01/09/19 01:00 16 Mechanical Ventilator 40 01/09/19 00:30 89 17 116/72 (87) 100 01/09/19 00:00 40 01/09/19 00:00 98.2 97 20 125/80 (95) 100 01/09/19 00:00 20 Mechanical Ventilator 40 01/09/19 00:00 97 01/09/19 00:00 Mechanical Ventilator Mechanical Ventilator 01/08/19 23:30 76 16 116/70 (85) 100 01/08/19 23:00 16 Mechanical Ventilator 01/08/19 23:00 78 16 120/73 (89) 100 01/08/19 22:59 81 16 40 40 01/08/19 22:38 97.9 01/08/19 22:30 94 19 116/81 (93) 100 01/08/19 22:03 16 Mechanical Ventilator 40 01/08/19 22:00 16 Mechanical Ventilator 40 01/08/19 22:00 80 16 116/69 (85) 100 01/08/19 21:30 77 16 113/67 (82) 100 01/08/19 21:15 79 16 40 40 01/08/19 21:00 17 Mechanical Ventilator 40 01/08/19 21:00 90 17 107/67 (80) 100 01/08/19 20:30 90 18 116/67 (83) 100 01/08/19 20:00 Mechanical Ventilator Mechanical Ventilator 01/08/19 20:00 77 01/08/19 20:00 77 16 115/68 (84) 100 01/08/19 20:00 16 Mechanical Ventilator 40 01/08/19 20:00 40 01/08/19 19:30 97.8 73 16 109/68 (82) 100 01/08/19 19:09 76 16 40 40 01/08/19 19:00 73 16 109/66 (80) 100 01/08/19 19:00 16 Mechanical Ventilator 40 01/08/19 18:43 Mechanical Ventilator 40 01/08/19 18:30 75 16 109/66 (80) 100 01/08/19 18:00 16 40 01/08/19 18:00 77 16 105/67 (80) 100 01/08/19 17:41 74 16 40 01/08/19 17:30 84 17 111/67 (82) 100 01/08/19 17:00 18 Mechanical Ventilator 40 01/08/19 17:00 78 16 107/68 (81) 100 01/08/19 16:30 74 16 112/75 (87) 100 01/08/19 16:00 92 01/08/19 16:00 Mechanical Ventilator Mechanical Ventilator 01/08/19 16:00 18 Mechanical Ventilator 40 01/08/19 16:00 40 01/08/19 16:00 75 16 105/65 (78) 100 01/08/19 15:30 80 17 104/66 (79) 100 01/08/19 15:09 76 16 40 01/08/19 15:00 89 20 105/67 (80) 100 01/08/19 15:00 16 Mechanical Ventilator 40 01/08/19 14:30 86 20 98/61 (73) 100 01/08/19 14:00 85 19 119/64 (82) 100 01/08/19 14:00 18 Mechanical Ventilator 40 01/08/19 13:30 76 16 103/62 (76) 100 01/08/19 13:00 18 Mechanical Ventilator 40 01/08/19 13:00 88 19 117/89 (98) 100 01/08/19 12:57 73 16 40 01/08/19 12:30 73 16 105/67 (80) 100 01/08/19 12:00 73 01/08/19 12:00 40 01/08/19 12:00 98.0 79 18 101/62 (75) 100 01/08/19 12:00 20 Mechanical Ventilator 40 01/08/19 12:00 Mechanical Ventilator Mechanical Ventilator 01/08/19 11:30 75 16 109/70 (83) 100 01/08/19 11:00 20 Mechanical Ventilator 40 01/08/19 11:00 74 16 98/62 (74) 100 01/08/19 10:55 78 17 40 01/08/19 10:30 85 18 99/62 (74) 100 01/08/19 10:00 73 16 106/66 (79) 100 01/08/19 10:00 20 Mechanical Ventilator 40 01/08/19 09:30 74 16 93/59 (70) 100 01/08/19 09:22 77 16 40 01/08/19 09:00 79 17 95/58 (70) 100 01/08/19 09:00 20 Mechanical Ventilator 40 Intake and Output 01/08/19 01/09/19 18:59 06:59 Intake Total 166.0 ml 445 ml Output Total 630 ml 590 ml Balance -464.0 ml -145 ml Intake IV Total 166.0 ml 445 ml Output Urine Total 630 ml 590 ml Height (Feet): 5 Height (Inches): 1.00 Weight (Pounds): 102 General Appearance: WD/WN, alert Neck: supple Cardiovascular: normal peripheral pulses, normal rate, regular rhythm Respiratory/Chest: chest wall non-tender, lungs clear, normal breath sounds Abdomen: normal bowel sounds, non tender, soft, no organomegaly Edema: no edema noted Arm (L), no edema noted Arm (R), no edema noted Leg (L), no edema noted Leg (R), no edema noted Pedal (L), no edema noted Pedal (R), no edema noted Generalized Varun Stewart MD January 09, 2019 09:08
--- NOTE | 2019-01-09 09:35 | NUR ---
Weaning criteria not passed. Ve<4, NIF -5, lack of effort. Rn lyndsey made aware. Placed back onto previous settings.
[2019-01-09 09:49] LABS: HEMATOCRIT 28.9 % (42.0-52.0); HEMOGLOBIN 9.1 G/DL (14.2-18.0); MEAN CORPUSCULAR VOLUME 91 FL (80-99); PLATELET COUNT 196 K/UL (150-450); RED BLOOD COUNT 3.18 M/UL (4.70-6.10); RED CELL DISTRIBUTION WIDTH 16.8 % (11.6-14.8); WHITE BLOOD COUNT 9.7 K/UL (4.8-10.8)
[2019-01-09 10:04] LABS: ALANINE AMINOTRANSFERASE 14 U/L (12-78); ALBUMIN 2.2 G/DL (3.4-5.0); ALBUMIN/GLOBULIN RATIO 0.5 (1.0-2.7); ALKALINE PHOSPHATASE 119 U/L (46-116); ANION GAP 4 mmol/L (5-15); ASPARTATE AMINO TRANSFERASE 15 U/L (15-37); BILIRUBIN,TOTAL 0.4 MG/DL (0.2-1.0); BLOOD UREA NITROGEN 16 mg/dL (7-18); CALCIUM 8.5 MG/DL (8.5-10.1); CARBON DIOXIDE 33 MMOL/L (21-32); CHLORIDE 103 MMOL/L (98-107); CREATININE 0.6 MG/DL (0.55-1.30); POTASSIUM 3.6 MMOL/L (3.5-5.1); SODIUM 140 MMOL/L (136-145)
--- NOTE | 2019-01-09 10:22 | NUR ---
RD ASSESSMENT & RECOMMENDATIONS SEE CARE ACTIVITY FOR COMPLETE ASSESSMENT DAILY ESTIMATED NEEDS: Needs based on Underweight, wound, critical care, HIV+, 46.8kg 30-35 kcals/kg 8857-8771 total kcals 1.25-2 g protein/kg 59-94 g total protein 25-30 mL/kg 2710-7918 total fluid mLs NUTRITION DIAGNOSIS: 1) Increased kcal and protein needs r/t wasting, HIV, underweight status, and wound healing as evidenced by moderate to severe generalized muscle and fat wasting, BMI 16.2, pt is 70% of [place] Body Weight, HIV+, w/ wounds, refer to WC eval. 2) Swallowing difficulty r/t respiratory status as evidenced by s/p intubation, NPO at this time. PO DIET RECOMMENDATIONS: BINDER FIXER eval upon extubation ENTERAL NUTRITION RECOMMENDATIONS: Glucerna 1.2 @55ml/hr x24 hrs to provide 1320ml, 1584 kcal, 79g pro, 1063ml free H2O - If unable to extubated, rec non oral feeds to meet est nutritional needs. Rec Carb control formula as pt on solumedrol. - Obtain GI access, start Glucerna 1.2 @25ml/hr for 6 hrs. Advance as tolerated 10ml/hr q4-6 hrs to goal. - Flush per MD/ HOB over 30 degrees. ----- ADDITIONAL RECOMMENDATIONS: * Maintain calibrated bed scale wts * Monitor BG on solumedrol/ need for SSI, h/o DM * Wound care: w/ GI access add MIMI BID + Vit C 250mg daily * BINDER FIXER eval upon extubation . .
--- NOTE | 2019-01-09 11:24 | NUR ---
*-* INSURANCE *-* ALL CLICNICALS AND REVIEWS HAVE BEEN FAXED TO: MERGED WITH [facility]; CIARA...COVERING FOR YOGESH P- [phone] F- [phone]....REVIEW/CLINICAL
--- NOTE | 2019-01-09 12:00 | NUR ---
NURSE NOTES: Pt is observed attempting to sit up in bed and pull out the vent-tubing despite multiple reorientation and distraction attempts. Remains on bilateral soft wrist restraints with skin integrity within normal limits. Titrated Versed drip to meet RASS score of -2. VS stable. Oral care given, pt suctioned, cleaned and repositioned.
--- NOTE | 2019-01-09 12:14 | NUR ---
Social Service Note SW familiar with patient from multiple previous admissions. Patient with a history of substance abuse and non-compliancy. Patient has been a resident of [facility] since 10/2018. During patient's admission in October 2018 patient informed GUNNER that his caregiver Mrs. Ocampo had . Patient provided an alternative phone number for his son Quintin Kasper III, . During previous admissions SW didn't receive a return call from son. SW left a message again for son at both [phone] and [phone]. POLST completed by patient 12/27/18 indicates CPR, Full treatment and no selection for artificially administered nutrition. Patient is currently orally intubated. SW will continue to attempt to locate family. Will monitor and be available as needed.
--- NOTE | 2019-01-09 12:32 | NUR ---
CASE MANAGEMENT:REVIEW 01/09/19 SI: RESPIRATORY FAILURE. COPD. PNA. CHF 101.9 130 18 110/60 92% ON 15L NON REBREATHER WBC+15.0 H/H-10.2/31.8 PCO2+57.9 IS: INTUBATED AND ATTACHED TO VENTILATOR DUONEB HHN IV SOLUMEDROL 1L NS BOLUS CHEST XRAY BLOOD CX : TO ICU INTERQUAL CRITERIA MET SI:
--- NOTE | 2019-01-09 13:00 | NUR ---
NURSE NOTES: Pt is asleep/sedated, however awakens to voice/touch. Remains intubated with ETT 7.5 at 23cm at right lipline with vent settings of AC16, VT400, Peep0, FIO2 40% with O2Sat 100% with lung sounds of bilateral rhonchi auscultated. surveillance system monitor continues to display SR with heart rate fluctuating in the 60's-80's. Versed titrated and maintained at 3mg/hour to maintain RASS score of -2. TKO. Currently NPO with hypoactive bowel sounds present in all four quadrants. Kimball catheter continues to drain mildly cloudy/sediments/yellow urine 30-50ml/hourly. Bilateral soft wrist restraints remain present with skin integrity within normal limits due to repeated attempts at trying to pull Vent-tubing despite multiple reorientation/distraction methods. Optifoam dressing changed on sacral/mid back areas. No edema noted on extremities. Pt is on P200 mattress with bilateral LE raised on pillow. Bed is locked with three side rails up and call light within reach. Will continue to monitor pt and follow plan of care per MD orders and protocol.
--- NOTE | 2019-01-09 13:58 | Pulmonology Progress Note ---
Assessment/Plan Assessment/Plan IMPRESSION: 1. Respiratory failure. 2. Advanced chronic obstructive pulmonary disease. 3. Hypoxemia. 4. Possible seizure. 5. Pulmonary hypertension. 6. Diastolic heart failure. DISCUSSION: I will continue vent on AC mode. Begin weaning. Added Haldol; decrease Versed. Continue breathing treatments and broad spectrum antibiotics, I will follow carefully. Abhijit Morris M.D. Subjective Interval Events: Agitated on Versed; remains on Versed Constitutional: Reports: no symptoms HEENT: Repors: no symptoms Respiratory: Reports: no symptoms Cardiovascular: Reports: no symptoms Gastrointestinal/Abdominal: Reports: no symptoms Genitourinary: Reports: no symptoms Allergies: Coded Allergies: No Known Allergies (Unverified , 10/17/18) Objective Last 24 Hour Vital Signs Date Time Temp Pulse Resp B/P (MAP) Pulse Ox O2 Delivery O2 Flow Rate FiO2 01/09/19 13:30 100 21 137/87 (104) 100 01/09/19 13:04 67 16 40 01/09/19 13:00 69 15 133/72 (92) 100 01/09/19 12:30 68 16 130/71 (90) 100 01/09/19 12:00 40 01/09/19 12:00 Mechanical Ventilator Mechanical Ventilator 01/09/19 12:00 97.5 71 16 128/68 (88) 100 01/09/19 11:30 68 16 133/75 (94) 100 01/09/19 11:26 71 01/09/19 11:00 69 16 143/73 (96) 100 01/09/19 10:45 67 17 40 01/09/19 10:30 66 16 132/67 (88) 100 01/09/19 10:00 64 16 131/71 (91) 100 01/09/19 09:42 100 01/09/19 09:30 68 16 132/72 (92) 100 01/09/19 09:29 75 17 40 01/09/19 09:00 63 16 143/71 (95) 100 01/09/19 08:30 78 16 139/74 (95) 100 01/09/19 08:00 97.4 62 16 141/72 (95) 100 01/09/19 08:00 Mechanical Ventilator Mechanical Ventilator 01/09/19 08:00 40 01/09/19 08:00 69 01/09/19 07:30 63 16 135/69 (91) 100 01/09/19 07:00 64 16 143/76 (98) 100 01/09/19 07:00 16 Mechanical Ventilator 40 01/09/19 06:52 64 16 40 01/09/19 06:30 66 16 136/72 (93) 100 01/09/19 06:00 74 16 136/74 (94) 100 01/09/19 06:00 16 Mechanical Ventilator 40 01/09/19 05:30 83 17 130/68 (88) 99 01/09/19 05:29 87 18 40 40 01/09/19 05:00 91 19 120/80 (93) 100 01/09/19 05:00 19 Mechanical Ventilator 40 01/09/19 04:30 73 16 130/79 (96) 100 01/09/19 04:00 40 01/09/19 04:00 16 Mechanical Ventilator 40 01/09/19 04:00 69 01/09/19 04:00 Mechanical Ventilator Mechanical Ventilator 01/09/19 04:00 97.6 69 16 130/77 (94) 100 01/09/19 03:30 71 16 125/78 (94) 100 01/09/19 03:11 66 16 40 40 01/09/19 03:00 71 16 120/74 (89) 100 01/09/19 03:00 16 Mechanical Ventilator 40 01/09/19 02:30 90 17 120/87 (98) 99 01/09/19 02:00 86 17 134/81 (98) 100 01/09/19 02:00 17 Mechanical Ventilator 40 01/09/19 01:30 71 16 126/80 (95) 100 01/09/19 01:25 76 16 40 40 01/09/19 01:00 73 16 118/71 (87) 100 01/09/19 01:00 16 Mechanical Ventilator 40 01/09/19 00:30 89 17 116/72 (87) 100 01/09/19 00:00 40 01/09/19 00:00 98.2 97 20 125/80 (95) 100 01/09/19 00:00 20 Mechanical Ventilator 40 01/09/19 00:00 97 01/09/19 00:00 Mechanical Ventilator Mechanical Ventilator 01/08/19 23:30 76 16 116/70 (85) 100 01/08/19 23:00 16 Mechanical Ventilator 01/08/19 23:00 78 16 120/73 (89) 100 01/08/19 22:59 81 16 40 40 01/08/19 22:38 97.9 01/08/19 22:30 94 19 116/81 (93) 100 01/08/19 22:03 16 Mechanical Ventilator 40 01/08/19 22:00 16 Mechanical Ventilator 40 01/08/19 22:00 80 16 116/69 (85) 100 01/08/19 21:30 77 16 113/67 (82) 100 01/08/19 21:15 79 16 40 40 01/08/19 21:00 17 Mechanical Ventilator 40 01/08/19 21:00 90 17 107/67 (80) 100 01/08/19 20:30 90 18 116/67 (83) 100 01/08/19 20:00 Mechanical Ventilator Mechanical Ventilator 01/08/19 20:00 77 01/08/19 20:00 77 16 115/68 (84) 100 01/08/19 20:00 16 Mechanical Ventilator 40 01/08/19 20:00 40 01/08/19 19:30 97.8 73 16 109/68 (82) 100 01/08/19 19:09 76 16 40 40 01/08/19 19:00 73 16 109/66 (80) 100 01/08/19 19:00 16 Mechanical Ventilator 40 01/08/19 18:43 Mechanical Ventilator 40 01/08/19 18:30 75 16 109/66 (80) 100 01/08/19 18:00 16 40 01/08/19 18:00 77 16 105/67 (80) 100 01/08/19 17:41 74 16 40 01/08/19 17:30 84 17 111/67 (82) 100 01/08/19 17:00 18 Mechanical Ventilator 40 01/08/19 17:00 78 16 107/68 (81) 100 01/08/19 16:30 74 16 112/75 (87) 100 01/08/19 16:00 92 01/08/19 16:00 Mechanical Ventilator Mechanical Ventilator 01/08/19 16:00 18 Mechanical Ventilator 40 01/08/19 16:00 40 01/08/19 16:00 75 16 105/65 (78) 100 01/08/19 15:30 80 17 104/66 (79) 100 01/08/19 15:09 76 16 40 01/08/19 15:00 89 20 105/67 (80) 100 01/08/19 15:00 16 Mechanical Ventilator 40 01/08/19 14:30 86 20 98/61 (73) 100 01/08/19 14:00 85 19 119/64 (82) 100 01/08/19 14:00 18 Mechanical Ventilator 40 Intake and Output 01/08/19 01/09/19 19:00 07:00 Intake Total 164.0 ml 449 ml Output Total 700 ml 530 ml Balance -536.0 ml -81 ml Intake IV Total 164.0 ml 449 ml Output Urine Total 700 ml 530 ml General Appearance: no acute distress HEENT: atraumatic Respiratory/Chest: chest wall non-tender, lungs clear Cardiovascular: normal peripheral pulses, normal rate Abdomen: normal bowel sounds Microbiology Date/Time Source Procedure Growth Status 01/07/19 17:05 Sputum Gram Stain - Final Resulted 01/07/19 17:05 Sputum Culture - Preliminary Gram Negative Bacillus 1 Usual Respiratory Doris Resulted Laboratory Tests 01/09/19 09:30: White Blood Count 9.7, Red Blood Count 3.18L, Hemoglobin 9.1L, Hematocrit 28.9L , Mean Corpuscular Volume 91, Mean Corpuscular Hemoglobin 28.7, Mean Corpuscular Hemoglobin Concent 31.6L, Red Cell Distribution Width 16.8H, Platelet Count 196, Mean Platelet Volume 6.6, Neutrophils (%) (Auto) , Lymphocytes (%) (Auto) , Monocytes (%) (Auto) , Eosinophils (%) (Auto) , Basophils (%) (Auto) , Differential Total Cells Counted 100, Neutrophils % ( Manual) 89H, Lymphocytes % (Manual) 6L, Monocytes % (Manual) 5, Eosinophils % ( Manual) 0, Basophils % (Manual) 0, Band Neutrophils 0, Platelet Estimate Adequate, Platelet Morphology Normal, Hypochromasia 2+, Anisocytosis 1+, Sodium Level 140, Potassium Level 3.6, Chloride Level 103, Carbon Dioxide Level 33H, Anion Gap 4L, Blood Urea Nitrogen 16, Creatinine 0.6, Estimat Glomerular Filtration Rate , Glucose Level 107H, Calcium Level 8.5, Total Bilirubin 0.4, Aspartate Amino Transf (AST/SGOT) 15, Alanine Aminotransferase (ALT/SGPT) 14, Alkaline Phosphatase 119H, Total Protein 6.3L, Albumin 2.2L, Globulin 4.1, Albumin/Globulin Ratio 0.5L Current Medications Medications (Trade) Dose Ordered Sig/Aimee Route PRN Reason Start Time Stop Time Status Last Admin Dose Admin Albuterol/ Ipratropium (Albuterol/ Ipratropium) 3 ml Q4H PRN HHN Shortness of Breath 01/07/19 21:09 01/12/19 21:08 Chlorhexidine Gluconate (Mayra-Hex 2%) 1 applic DAILY@2000 TOPIC 01/08/19 20:00 02/07/19 19:59 01/08/19 19:53 Heparin Sodium (Porcine) (Heparin 5000 units/ml) 5,000 units EVERY 12 HOURS SUBQ 01/07/19 21:00 02/06/19 20:59 01/09/19 08:14 Lorazepam (Ativan 2mg/ml 1ml) 1 mg Q4H PRN IV For Anxiety 01/07/19 21:09 01/14/19 21:08 Methylprednisolone Sodium Succinate (Solu-MEDROL) 60 mg Q8H IVP 01/08/19 02:00 02/07/19 01:59 01/09/19 09:08 Midazolam HCl 100 ml @ 0 mls/hr Q24H PRN IVPB Agitation 01/07/19 21:09 01/14/19 21:08 01/08/19 22:03 Pantoprazole (Protonix) 40 mg DAILY IVP 01/08/19 09:00 02/07/19 08:59 01/09/19 08:13 Piperacillin Sod/ Tazobactam Sod 3.375 gm/Sodium Chloride 110 ml @ 27.5 mls/hr Q8H IVPB 01/08/19 02:00 01/15/19 01:59 01/09/19 09:07 Vancomycin HCl (Vanco rx to dose) 1 ea DAILY PRN MISC Per rx protocol 01/07/19 21:00 02/06/19 20:59 Vancomycin HCl 750 mg/Sodium Chloride 275 ml @ 183.333 mls/hr Q24H IVPB 01/07/19 22:30 01/12/19 22:29 01/08/19 22:38 Abhijit Morris MD January 09, 2019 13:58
--- NOTE | 2019-01-09 15:00 | NUR ---
NURSE NOTES: Pt is asleep/sedated while on Versed however awakens to touch, and attempts to pull his upper body up in bed and reach for the vent/tubing. Bilateral soft wrist restraints maintained for pt safety; skin integrity at restraint site is within normal limits. Vital signs remain stable, with O2Sat at 100% on Vent setting AC16, VT400, FIO2 40% via ETT 7.5 at 23cm lipline. Remains NPO. RT attempted ventilator weaning per protocol, however unsuccessful, and pt maintained at same vent AC settings as ordered. Kimball catheter continues to drain mildly cloudy/yellow urine 30-40ml/hourly. Will continue to monitor and follow plan of care.
[2019-01-09] MEDS ORDERED: Haloperidol Lactate 5 MG in D5W 55 ML IVPB PRN (16:30)
--- NOTE | 2019-01-09 17:00 | NUR ---
NURSE NOTES: Vital signs remain stable, with O2sat at 100% on vent settings AC16, VT400, FIO2 40%. rehab office coordinator displays NSR with heart rate fluctuating from 70-80's. Remains on bilateral soft wrist restraints to prevent self-extubation. Oral care done, pt suctioned, cleaned and repositioned. Dressing changed on sacrum.
--- NOTE | 2019-01-09 19:09 | NUR ---
RESPIRATORY NOTE: Received pt on AC 16, 400VT, 40%, no PEEP. Pt intubated w/ ETT 7.5 @ 24cm lipline, secured by anchorfast. Pt currently sedated, still responds to stimuli. B/S mare. rhonchi, sxn large amounts of thick, trujilol-yellow secretions. Both hands on soft-restraints to prevent pt from self-extubation. Vent plugged into red outlet, ambubag at bedside. Pt in no apparent distress at this time. Will continue to monitor pt.
--- NOTE | 2019-01-09 19:28 | NUR ---
HAND-OFF: Report given to Brayden JUAREZ. Endorsed plan of care. Pt remains stable.
--- NOTE | 2019-01-09 19:30 | NUR ---
NURSE NOTES: Recvd.on a vent.orally intubated.See settings.Lungs few satt.Rh.diminished BSat bases.P.Ox.97%.suctioned mod.beige thin sec.NS Lavaged.See V/S.Scope SR occ ectopy.Pos. chg.Confused and disoriented trashing in bed.On Bila.soft wrist restraints prev.self injury.Kept clean dry and comfortable.Re-oriented,Re-assured.IV versed drip inf.at 3mg/hr to consumed.No SZ.act.observed.
[2019-01-09] MEDS: Dyna-Hex 2% Top Sol 2oz TOPIC SCH (19:40)
--- NOTE | 2019-01-09 22:30 | NUR ---
NURSE NOTES: HS care rendered.Pos.chg.Kept clean dry and comfortable.Occ.restless confused and disoriented.Re-oriented,Re-assured.Due medication technician.OFF versed drip.See V/S.Scope rhythm same.No Seizure act.observed.
[2019-01-09] MEDS: Vancomycin 750mg/NS 275ml IVPB SCH ×2 (23:26)
[2019-01-10] VITALS (24 sets, daily range): BP systolic 122–174; BP diastolic 69–100
--- NOTE | 2019-01-10 00:15 | NUR ---
NURSE NOTES: Repositioned,Suctioned.NS Lavaged.Antonio.vent.settings.Oral care provided.Maintain on bila.soft wrist restraints prev.self-injuy.No distress.
[2019-01-10] MEDS: Solu-MEDROL 125mg Inj IVP SCH ×3 (01:37→20:48)
[2019-01-10] MEDS: Piperacillin/Tazobactam 3.375 GM in NS 110 ML IVPB SCH ×3 (01:37→18:32)
--- NOTE | 2019-01-10 02:00 | NUR ---
NURSE NOTES: Pos.chg.Suctioned.No SZ.act.noted Prec.maintained.No distress.Cont.Plan of care.
--- NOTE | 2019-01-10 03:45 | Progress Note ---
DATE: 01/09/2019 CARDIOLOGY PROGRESS NOTE SUBJECTIVE: The patient remains orally intubated and mechanically ventilated. Agitation is noted without sedation. Weaning remains difficult. He continues on IV therapy with steroids and antimicrobials. OBJECTIVE: VITAL SIGNS: Blood pressure 141/72, pulse 62, respirations 16, no fevers. LUNGS: Bilateral breath sounds. Rhonchi, few wheezes. CARDIAC: Regular rhythm and rate. Normal S1, S2. A 1/6 systolic murmur at the lower left sternal border. ABDOMEN: Soft. EXTREMITIES: There is trace dependent edema. LABORATORY DATA: White count 9.7, hemoglobin 9.1. BUN 16, creatinine 0.6. Potassium 3.6. Albumin 2.2. IMPRESSION: 1. Respiratory failure. 2. Chronic obstructive pulmonary disease exacerbation. 3. Methadone dependence. 4. Metabolic encephalopathy. 5. Acute on chronic respiratory acidosis. 6. Severe pulmonary hypertension. 7. Acute on chronic diastolic congestive heart failure. PLAN: 1. Continue current weaning efforts. 2. Steroid tapers as able. 3. Inhaled bronchodilators. 4. Trend natriuretic peptide assay. 5. Diuresis based on clinical parameters. 6. Anxiolytics and pain control. 7. DVT and stress ulcer prophylaxes. Justus Grewal M.D. DR: UMER JOB#: [id number] CC:
--- NOTE | 2019-01-10 04:00 | NUR ---
NURSE NOTES: NGT insertion unsuccessful repeated multiple times.Will let knows.Mickey Ruiz.Blood drawn for cbc/bnp/cmp etc.spec.to Lab.VSS.Scope rhythm same.Maintain on bila.soft wrist restraints.No injury.Antonio.Vent settings.
[2019-01-10 05:32] LABS: HEMATOCRIT 29.7 % (42.0-52.0); HEMOGLOBIN 9.5 G/DL (14.2-18.0); MEAN CORPUSCULAR VOLUME 90 FL (80-99); PLATELET COUNT 221 K/UL (150-450); RED BLOOD COUNT 3.29 M/UL (4.70-6.10); RED CELL DISTRIBUTION WIDTH 16.5 % (11.6-14.8)
[2019-01-10 06:04] LABS: ALANINE AMINOTRANSFERASE 10 U/L (12-78); ALBUMIN 2.3 G/DL (3.4-5.0); ALBUMIN/GLOBULIN RATIO 0.6 (1.0-2.7); ALKALINE PHOSPHATASE 110 U/L (46-116); ANION GAP 9 mmol/L (5-15); ASPARTATE AMINO TRANSFERASE 24 U/L (15-37); BILIRUBIN,TOTAL 0.4 MG/DL (0.2-1.0); BLOOD UREA NITROGEN 21 mg/dL (7-18); CALCIUM 8.6 MG/DL (8.5-10.1); CARBON DIOXIDE 26 MMOL/L (21-32); CHLORIDE 107 MMOL/L (98-107); CREATININE 0.7 MG/DL (0.55-1.30); PHOSPHORUS 2.6 MG/DL (2.5-4.9); POTASSIUM 3.9 MMOL/L (3.5-5.1); SODIUM 142 MMOL/L (136-145)
--- NOTE | 2019-01-10 07:20 | NUR ---
HAND-OFF: Report given to ANN SPEARS.
--- NOTE | 2019-01-10 07:37 | Pulmonology Progress Note ---
Assessment/Plan Assessment/Plan IMPRESSION: 1. Respiratory failure. 2. Advanced chronic obstructive pulmonary disease. 3. Hypoxemia. 4. Possible seizure. 5. Pulmonary hypertension. 6. Diastolic heart failure. DISCUSSION: I will continue vent on AC mode. Continue weaning. Added Haldol; decreased Versed. Continue breathing treatments and broad spectrum antibiotics, I will follow carefully. Abhijit Morris M.D. Subjective Interval Events: On Haldol for agitation Constitutional: Reports: no symptoms HEENT: Repors: no symptoms Respiratory: Reports: no symptoms Cardiovascular: Reports: no symptoms Gastrointestinal/Abdominal: Reports: no symptoms Genitourinary: Reports: no symptoms Allergies: Coded Allergies: No Known Allergies (Unverified , 10/17/18) Objective Last 24 Hour Vital Signs Date Time Temp Pulse Resp B/P (MAP) Pulse Ox O2 Delivery O2 Flow Rate FiO2 01/10/19 07:18 85 17 40 01/10/19 07:00 78 17 143/81 (101) 98 01/10/19 06:00 66 16 153/69 (97) 100 01/10/19 05:20 66 16 40 01/10/19 05:00 97.4 79 18 137/86 (103) 100 01/10/19 04:00 40 01/10/19 04:00 86 19 146/88 (107) 98 01/10/19 04:00 Mechanical Ventilator Mechanical Ventilator 01/10/19 04:00 86 01/10/19 03:11 80 22 40 01/10/19 03:00 66 17 154/84 (107) 99 01/10/19 02:00 72 17 141/86 (104) 99 01/10/19 01:15 82 17 40 01/10/19 01:00 84 17 140/76 (97) 98 01/10/19 00:00 40 01/10/19 00:00 94 01/10/19 00:00 Mechanical Ventilator Mechanical Ventilator 01/10/19 00:00 97.8 94 19 127/85 (99) 99 01/09/19 23:30 80 17 147/81 (103) 100 01/09/19 23:02 72 17 40 01/09/19 23:00 80 17 139/86 (103) 98 01/09/19 22:30 94 19 126/79 (95) 98 01/09/19 22:00 105 19 142/83 (102) 97 01/09/19 21:30 105 19 142/83 (102) 100 01/09/19 21:00 86 16 40 01/09/19 21:00 76 16 150/76 (100) 99 01/09/19 20:30 97.7 76 17 133/82 (99) 99 01/09/19 20:00 82 17 121/80 (94) 98 01/09/19 20:00 82 01/09/19 20:00 17 Mechanical Ventilator 40 01/09/19 20:00 40 01/09/19 20:00 Mechanical Ventilator Mechanical Ventilator 01/09/19 19:30 81 17 127/81 (96) 98 01/09/19 19:06 109 24 40 01/09/19 19:00 104 22 132/76 (94) 97 01/09/19 19:00 17 Mechanical Ventilator 40 01/09/19 18:30 106 21 134/81 (98) 99 01/09/19 18:00 18 Mechanical Ventilator 40 01/09/19 18:00 99 19 134/84 (101) 99 01/09/19 17:30 76 18 129/72 (91) 98 01/09/19 17:18 18 Mechanical Ventilator 40 01/09/19 17:11 102 23 40 01/09/19 17:00 17 Mechanical Ventilator 40 01/09/19 17:00 77 16 126/75 (92) 99 01/09/19 16:30 76 16 124/70 (88) 99 01/09/19 16:00 97.6 66 17 129/65 (86) 100 01/09/19 16:00 18 Mechanical Ventilator 40 01/09/19 16:00 74 01/09/19 16:00 Mechanical Ventilator Mechanical Ventilator 01/09/19 16:00 40 01/09/19 15:30 79 16 129/65 (86) 100 01/09/19 15:24 78 16 40 01/09/19 15:00 18 Mechanical Ventilator 40 01/09/19 15:00 74 16 122/71 (88) 100 01/09/19 14:30 72 16 124/71 (88) 100 01/09/19 14:00 79 16 129/74 (92) 100 01/09/19 14:00 18 Mechanical Ventilator 40 01/09/19 13:30 100 21 137/87 (104) 100 01/09/19 13:04 67 16 40 01/09/19 13:00 18 Mechanical Ventilator 40 01/09/19 13:00 69 15 133/72 (92) 100 01/09/19 12:30 68 16 130/71 (90) 100 01/09/19 12:00 40 01/09/19 12:00 Mechanical Ventilator Mechanical Ventilator 01/09/19 12:00 16 Mechanical Ventilator 40 01/09/19 12:00 97.5 71 16 128/68 (88) 100 01/09/19 11:30 68 16 133/75 (94) 100 01/09/19 11:26 71 01/09/19 11:00 18 Mechanical Ventilator 40 01/09/19 11:00 69 16 143/73 (96) 100 01/09/19 10:45 67 17 40 01/09/19 10:30 66 16 132/67 (88) 100 01/09/19 10:00 16 Mechanical Ventilator 40 01/09/19 10:00 64 16 131/71 (91) 100 01/09/19 09:42 100 01/09/19 09:30 68 16 132/72 (92) 100 01/09/19 09:29 75 17 40 01/09/19 09:00 16 Mechanical Ventilator 40 01/09/19 09:00 63 16 143/71 (95) 100 01/09/19 08:30 78 16 139/74 (95) 100 01/09/19 08:00 97.4 62 16 141/72 (95) 100 01/09/19 08:00 Mechanical Ventilator Mechanical Ventilator 01/09/19 08:00 40 01/09/19 08:00 16 Mechanical Ventilator 40 01/09/19 08:00 69 Intake and Output 01/09/19 01/10/19 18:59 06:59 Intake Total 158.0 ml 609 ml Output Total 455 ml 400 ml Balance -297.0 ml 209 ml Intake IV Total 158.0 ml 609 ml Output Urine Total 455 ml 400 ml General Appearance: no acute distress HEENT: normocephalic Respiratory/Chest: chest wall non-tender, lungs clear Cardiovascular: normal peripheral pulses, normal rate Abdomen: normal bowel sounds Microbiology Date/Time Source Procedure Growth Status 01/07/19 17:45 Nasal Nares MRSA Culture - Final NO METHICILLIN RESISTANT STAPH AUREUS... Complete 01/07/19 17:05 Sputum Gram Stain - Final Resulted 01/07/19 17:05 Sputum Culture - Preliminary Gram Negative Bacillus 1 Usual Respiratory Doris Resulted Laboratory Tests 01/09/19 09:30: White Blood Count 9.7, Red Blood Count 3.18L, Hemoglobin 9.1L, Hematocrit 28.9L , Mean Corpuscular Volume 91, Mean Corpuscular Hemoglobin 28.7, Mean Corpuscular Hemoglobin Concent 31.6L, Red Cell Distribution Width 16.8H, Platelet Count 196, Mean Platelet Volume 6.6, Neutrophils (%) (Auto) , Lymphocytes (%) (Auto) , Monocytes (%) (Auto) , Eosinophils (%) (Auto) , Basophils (%) (Auto) , Differential Total Cells Counted 100, Neutrophils % ( Manual) 89H, Lymphocytes % (Manual) 6L, Monocytes % (Manual) 5, Eosinophils % ( Manual) 0, Basophils % (Manual) 0, Band Neutrophils 0, Platelet Estimate Adequate, Platelet Morphology Normal, Hypochromasia 2+, Anisocytosis 1+, Sodium Level 140, Potassium Level 3.6, Chloride Level 103, Carbon Dioxide Level 33H, Anion Gap 4L, Blood Urea Nitrogen 16, Creatinine 0.6, Estimat Glomerular Filtration Rate , Glucose Level 107H, Calcium Level 8.5, Total Bilirubin 0.4, Aspartate Amino Transf (AST/SGOT) 15, Alanine Aminotransferase (ALT/SGPT) 14, Alkaline Phosphatase 119H, Total Protein 6.3L, Albumin 2.2L, Globulin 4.1, Albumin/Globulin Ratio 0.5L 01/10/19 04:00: White Blood Count 8.0, Red Blood Count 3.29L, Hemoglobin 9.5L, Hematocrit 29.7L , Mean Corpuscular Volume 90, Mean Corpuscular Hemoglobin 28.8, Mean Corpuscular Hemoglobin Concent 31.9L, Red Cell Distribution Width 16.5H, Platelet Count 221, Mean Platelet Volume 5.9L, Neutrophils (%) (Auto) , Lymphocytes (%) (Auto) , Monocytes (%) (Auto) , Eosinophils (%) (Auto) , Basophils (%) (Auto) , Neutrophils % (Manual) [Pending], Lymphocytes % (Manual) [Pending], Platelet Estimate [Pending], Platelet Morphology [Pending], Sodium Level 142, Potassium Level 3.9, Chloride Level 107, Carbon Dioxide Level 26, Anion Gap 9, Blood Urea Nitrogen 21H, Creatinine 0.7, Estimat Glomerular Filtration Rate , Glucose Level 94, Calcium Level 8.6, Total Bilirubin 0.4, Aspartate Amino Transf (AST/SGOT) 24, Alanine Aminotransferase (ALT/SGPT) 10L, Alkaline Phosphatase 110, Total Protein 6.4, Albumin 2.3L, Globulin 4.1, Albumin /Globulin Ratio 0.6L, Phosphorus Level 2.6, Magnesium Level 2.1, Pro-B-Type Natriuretic Peptide 5174H Current Medications Medications (Trade) Dose Ordered Sig/Aimee Route PRN Reason Start Time Stop Time Status Last Admin Dose Admin Albuterol/ Ipratropium (Albuterol/ Ipratropium) 3 ml Q4H PRN HHN Shortness of Breath 01/07/19 21:09 01/12/19 21:08 Chlorhexidine Gluconate (Mayra-Hex 2%) 1 applic DAILY@2000 TOPIC 01/08/19 20:00 02/07/19 19:59 01/09/19 19:40 Haloperidol Lactate 5 mg/ Dextrose 56 ml @ 224 mls/hr EVERY 6 HOURS PRN IVPB Agitation 01/09/19 16:30 02/08/19 16:29 Heparin Sodium (Porcine) (Heparin 5000 units/ml) 5,000 units EVERY 12 HOURS SUBQ 01/07/19 21:00 02/06/19 20:59 01/09/19 21:05 Lorazepam (Ativan 2mg/ml 1ml) 1 mg Q4H PRN IV For Anxiety 01/07/19 21:09 01/14/19 21:08 Methylprednisolone Sodium Succinate (Solu-MEDROL) 60 mg EVERY 12 HOURS IVP 01/10/19 09:00 02/09/19 08:59 Midazolam HCl 100 ml @ 0 mls/hr Q24H PRN IVPB Agitation 01/07/19 21:09 01/14/19 21:08 01/08/19 22:03 Pantoprazole (Protonix) 40 mg DAILY IVP 01/08/19 09:00 02/07/19 08:59 01/09/19 08:13 Piperacillin Sod/ Tazobactam Sod 3.375 gm/Sodium Chloride 110 ml @ 27.5 mls/hr Q8H IVPB 01/08/19 02:00 01/15/19 01:59 01/10/19 01:37 Vancomycin HCl (Vanco rx to dose) 1 ea DAILY PRN MISC Per rx protocol 01/07/19 21:00 02/06/19 20:59 Vancomycin HCl 750 mg/Sodium Chloride 275 ml @ 183.333 mls/hr Q24H IVPB 01/07/19 22:30 01/12/19 22:29 01/09/19 23:26 Abhijit Morris MD January 10, 2019 07:37
--- NOTE | 2019-01-10 07:55 | NUR ---
NURSE NOTES: Weaning started,pt put on CPAP PS 10,tolerate well.Deep breathing exercises provided.Will continue to monitor.
--- NOTE | 2019-01-10 08:01 | NUR ---
NURSE NOTES: Report received from ANN Owen. Asleep when received, easily arousal to verbal and tactile stimuli.ETT in place 7.5 right lip line , AC 16 Vt 400 Fio2 40%. On weaning trial,off Versed at this time.RIJ/TLC patent WITH tko.Seen by Dr Morris and made aware difficulty NGT insertion and to follow up with GI if unable to extubate.Floey catheter intact draining well by gravity with no apparent sediment.Turned and repositioned,mouth care done.Kept clean dry and comfortable.Call light within easy reach.Will continue to monitor.
[2019-01-10] MEDS: Pantoprazole Inj IVP SCH (08:07)
[2019-01-10] MEDS: Heparin 5000 units/ml inj SUBQ SCH ×2 (08:11→20:51)
--- NOTE | 2019-01-10 08:26 | General Progress Note ---
Assessment/Plan Problem List: (1) Diabetes mellitus ICD Codes: E11.9 - Type 2 diabetes mellitus without complications SNOMED: 52706736 (2) Respiratory distress ICD Codes: R06.03 - Acute respiratory distress SNOMED: 859737814 (3) Heroin abuse ICD Codes: F11.10 - Heroin abuse SNOMED: 825672038 (4) CHF (congestive heart failure) ICD Codes: I50.9 - Heart failure, unspecified SNOMED: 56946733 (5) Respiratory failure ICD Codes: J96.90 - Respiratory failure, unspecified, unspecified whether with hypoxia or hypercapnia SNOMED: 093555205 Qualifiers: Qualified Codes: J96.01 - Acute respiratory failure with hypoxia; J96.02 - Acute respiratory failure with hypercapnia (6) Pneumonia involving right lung ICD Codes: J18.9 - Pneumonia, unspecified organism SNOMED: 716355751 Qualifiers: Qualified Codes: J18.9 - Pneumonia, unspecified organism (7) COPD (chronic obstructive pulmonary disease) ICD Codes: J44.9 - Chronic obstructive pulmonary disease, unspecified SNOMED: 97714323 Qualifiers: Qualified Codes: J44.9 - Chronic obstructive pulmonary disease, unspecified Status: stable, progressing Assessment/Plan: cont current rx iv abx iv steroids- wean as able resp rx monitor labs prn anxiolytics dvt/stress ulcer prophylaxis Subjective ROS Limited/Unobtainable: Yes Constitutional: Reports: malaise, weakness HEENT: Reports: no symptoms Cardiovascular: Reports: no symptoms Respiratory: Reports: no symptoms Gastrointestinal/Abdominal: Reports: no symptoms Genitourinary: Reports: no symptoms Neurologic/Psychiatric: Reports: no symptoms Endocrine: Reports: no symptoms Hematologic/Lymphatic: Reports: anemia Allergies: Coded Allergies: No Known Allergies (Unverified , 10/17/18) All Systems: reviewed and negative except above Subjective remains intubated. less agitated. off sedation. no overnight events. remains on iv steroids and iv abx Objective Last 24 Hour Vital Signs Date Time Temp Pulse Resp B/P (MAP) Pulse Ox O2 Delivery O2 Flow Rate FiO2 01/10/19 08:12 85 26 40 40 01/10/19 08:00 40 01/10/19 08:00 98.0 96 17 148/85 (106) 100 01/10/19 08:00 Mechanical Ventilator Mechanical Ventilator 01/10/19 07:18 85 17 40 01/10/19 07:00 78 17 143/81 (101) 98 01/10/19 06:00 66 16 153/69 (97) 100 01/10/19 05:20 66 16 40 01/10/19 05:00 97.4 79 18 137/86 (103) 100 01/10/19 04:00 40 01/10/19 04:00 86 19 146/88 (107) 98 01/10/19 04:00 Mechanical Ventilator Mechanical Ventilator 01/10/19 04:00 86 01/10/19 03:11 80 22 40 01/10/19 03:00 66 17 154/84 (107) 99 01/10/19 02:00 72 17 141/86 (104) 99 01/10/19 01:15 82 17 40 01/10/19 01:00 84 17 140/76 (97) 98 01/10/19 00:00 40 01/10/19 00:00 94 01/10/19 00:00 Mechanical Ventilator Mechanical Ventilator 01/10/19 00:00 97.8 94 19 127/85 (99) 99 01/09/19 23:30 80 17 147/81 (103) 100 01/09/19 23:02 72 17 40 01/09/19 23:00 80 17 139/86 (103) 98 01/09/19 22:30 94 19 126/79 (95) 98 01/09/19 22:00 105 19 142/83 (102) 97 01/09/19 21:30 105 19 142/83 (102) 100 01/09/19 21:00 86 16 40 01/09/19 21:00 76 16 150/76 (100) 99 01/09/19 20:30 97.7 76 17 133/82 (99) 99 01/09/19 20:00 82 17 121/80 (94) 98 01/09/19 20:00 82 01/09/19 20:00 17 Mechanical Ventilator 40 01/09/19 20:00 40 01/09/19 20:00 Mechanical Ventilator Mechanical Ventilator 01/09/19 19:30 81 17 127/81 (96) 98 01/09/19 19:06 109 24 40 01/09/19 19:00 104 22 132/76 (94) 97 01/09/19 19:00 17 Mechanical Ventilator 40 01/09/19 18:30 106 21 134/81 (98) 99 01/09/19 18:00 18 Mechanical Ventilator 40 01/09/19 18:00 99 19 134/84 (101) 99 01/09/19 17:30 76 18 129/72 (91) 98 01/09/19 17:18 18 Mechanical Ventilator 40 01/09/19 17:11 102 23 40 01/09/19 17:00 17 Mechanical Ventilator 40 01/09/19 17:00 77 16 126/75 (92) 99 01/09/19 16:30 76 16 124/70 (88) 99 01/09/19 16:00 97.6 66 17 129/65 (86) 100 01/09/19 16:00 18 Mechanical Ventilator 40 01/09/19 16:00 74 01/09/19 16:00 Mechanical Ventilator Mechanical Ventilator 01/09/19 16:00 40 01/09/19 15:30 79 16 129/65 (86) 100 01/09/19 15:24 78 16 40 01/09/19 15:00 18 Mechanical Ventilator 40 01/09/19 15:00 74 16 122/71 (88) 100 01/09/19 14:30 72 16 124/71 (88) 100 01/09/19 14:00 79 16 129/74 (92) 100 01/09/19 14:00 18 Mechanical Ventilator 40 01/09/19 13:30 100 21 137/87 (104) 100 01/09/19 13:04 67 16 40 01/09/19 13:00 18 Mechanical Ventilator 40 01/09/19 13:00 69 15 133/72 (92) 100 01/09/19 12:30 68 16 130/71 (90) 100 01/09/19 12:00 40 01/09/19 12:00 Mechanical Ventilator Mechanical Ventilator 01/09/19 12:00 16 Mechanical Ventilator 40 01/09/19 12:00 97.5 71 16 128/68 (88) 100 01/09/19 11:30 68 16 133/75 (94) 100 01/09/19 11:26 71 01/09/19 11:00 18 Mechanical Ventilator 40 01/09/19 11:00 69 16 143/73 (96) 100 01/09/19 10:45 67 17 40 01/09/19 10:30 66 16 132/67 (88) 100 01/09/19 10:00 16 Mechanical Ventilator 40 01/09/19 10:00 64 16 131/71 (91) 100 01/09/19 09:42 100 01/09/19 09:30 68 16 132/72 (92) 100 01/09/19 09:29 75 17 40 01/09/19 09:00 16 Mechanical Ventilator 40 01/09/19 09:00 63 16 143/71 (95) 100 01/09/19 08:30 78 16 139/74 (95) 100 Intake and Output 01/09/19 01/10/19 18:59 06:59 Intake Total 158.0 ml 609 ml Output Total 455 ml 400 ml Balance -297.0 ml 209 ml Intake IV Total 158.0 ml 609 ml Output Urine Total 455 ml 400 ml Laboratory Tests 01/09/19 09:30: White Blood Count 9.7, Red Blood Count 3.18L, Hemoglobin 9.1L, Hematocrit 28.9L , Mean Corpuscular Volume 91, Mean Corpuscular Hemoglobin 28.7, Mean Corpuscular Hemoglobin Concent 31.6L, Red Cell Distribution Width 16.8H, Platelet Count 196, Mean Platelet Volume 6.6, Neutrophils (%) (Auto) , Lymphocytes (%) (Auto) , Monocytes (%) (Auto) , Eosinophils (%) (Auto) , Basophils (%) (Auto) , Differential Total Cells Counted 100, Neutrophils % ( Manual) 89H, Lymphocytes % (Manual) 6L, Monocytes % (Manual) 5, Eosinophils % ( Manual) 0, Basophils % (Manual) 0, Band Neutrophils 0, Platelet Estimate Adequate, Platelet Morphology Normal, Hypochromasia 2+, Anisocytosis 1+, Sodium Level 140, Potassium Level 3.6, Chloride Level 103, Carbon Dioxide Level 33H, Anion Gap 4L, Blood Urea Nitrogen 16, Creatinine 0.6, Estimat Glomerular Filtration Rate , Glucose Level 107H, Calcium Level 8.5, Total Bilirubin 0.4, Aspartate Amino Transf (AST/SGOT) 15, Alanine Aminotransferase (ALT/SGPT) 14, Alkaline Phosphatase 119H, Total Protein 6.3L, Albumin 2.2L, Globulin 4.1, Albumin/Globulin Ratio 0.5L 01/10/19 04:00: White Blood Count 8.0, Red Blood Count 3.29L, Hemoglobin 9.5L, Hematocrit 29.7L , Mean Corpuscular Volume 90, Mean Corpuscular Hemoglobin 28.8, Mean Corpuscular Hemoglobin Concent 31.9L, Red Cell Distribution Width 16.5H, Platelet Count 221, Mean Platelet Volume 5.9L, Neutrophils (%) (Auto) , Lymphocytes (%) (Auto) , Monocytes (%) (Auto) , Eosinophils (%) (Auto) , Basophils (%) (Auto) , Neutrophils % (Manual) [Pending], Lymphocytes % (Manual) [Pending], Platelet Estimate [Pending], Platelet Morphology [Pending], Sodium Level 142, Potassium Level 3.9, Chloride Level 107, Carbon Dioxide Level 26, Anion Gap 9, Blood Urea Nitrogen 21H, Creatinine 0.7, Estimat Glomerular Filtration Rate , Glucose Level 94, Calcium Level 8.6, Total Bilirubin 0.4, Aspartate Amino Transf (AST/SGOT) 24, Alanine Aminotransferase (ALT/SGPT) 10L, Alkaline Phosphatase 110, Total Protein 6.4, Albumin 2.3L, Globulin 4.1, Albumin /Globulin Ratio 0.6L, Phosphorus Level 2.6, Magnesium Level 2.1, Pro-B-Type Natriuretic Peptide 5174H Height (Feet): 5 Height (Inches): 1.00 Weight (Pounds): 103 Objective General Appearance: WD/WN, alert Neck: supple Cardiovascular: normal peripheral pulses, normal rate, regular rhythm Respiratory/Chest: chest wall non-tender, lungs clear, normal breath sounds Abdomen: normal bowel sounds, non tender, soft, no organomegaly Edema: no edema noted Arm (L), no edema noted Arm (R), no edema noted Leg (L), no edema noted Leg (R), no edema noted Pedal (L), no edema noted Pedal (R), no edema noted Generalized Varun Stewart MD January 10, 2019 08:26
--- NOTE | 2019-01-10 10:05 | NUR ---
NURSE NOTES: Patient turned and repositioned.Seen by Dr Samuels, will follow up with new orders.Kept on close monitoring
--- NOTE | 2019-01-10 10:41 | NUR ---
*-* INSURANCE *-* UPDATED CLINICALS AND REVIEWS HAVE BEEN FAXED TO: [facility]; [place]...COVERING FOR YOGESH P- [phone] F- [phone]....REVIEW/CLINICAL
--- NOTE | 2019-01-10 11:10 | NUR ---
NURSE NOTES: Order received from dr Méndez to jose rRT made aware Addendum: 01/10/19 at 1325 by Amee Khan RN NURSE NOTES: Order received from Dr Morris to RT jose r made aware
--- NOTE | 2019-01-10 12:02 | NUR ---
NURSE NOTES: Patient extubated.Deep breathing exercises provided, on oxygen mask at 50% and saturate well 100% at this time.Will continue to monitor, tolerate well.Able to self repositioned.Suctioned and mouth care provided. Addendum: 01/10/19 at 1326 by Amee Khan RN Restraints d/c
[2019-01-10] MEDS ORDERED: NS 275ml ONE (13:25)
--- NOTE | 2019-01-10 14:00 | NUR ---
NURSE NOTES: Patient asleep,no acute distress.Post intubated and saturate at 98% on simple mask.Call light within easy reach.will continue to monitor.
--- NOTE | 2019-01-10 16:06 | NUR ---
CASE MANAGEMENT:REVIEW 01/09/19 SI: RESPIRATORY FAILURE. COPD. PNA. CHF 97.8 90 20 156/79 100% VENTURI MASK 10L 50% FIO2 H/H-9.5/29.7 BNP+5174 IS: IV SOLUMEDROL Q12 IV PROTONIX QD IV ZOSYN Q8HRS HEPARIN SQ Q12 : ICU STATUS DCP: FROM [facility]
--- NOTE | 2019-01-10 16:14 | NUR ---
NURSE NOTES: Patient ADls done, help in self repositioning.Kept clean dry and comfortable.Call light within easy reach Addendum: 01/10/19 at 1853 by Amee Khan RN NURSE NOTES: Left message to ST for swallow eval. Ice chips given to patient.
--- NOTE | 2019-01-10 18:08 | NUR ---
NURSE NOTES: ADLs sone,kept clean and dry.Turned and repositioned.Kept clean and comfortable.
[2019-01-10] MEDS ORDERED: DUONEB 0.5-3(2.53 ML HHN (19:07)
[2019-01-10] MEDS ORDERED: METHADONE HCL10 MG ORAL (19:11)
--- NOTE | 2019-01-10 19:13 | NUR ---
HAND-OFF: Report given to ANN Owen.
[2019-01-10] MEDS ORDERED: ASCORBIC ACID500 MG ORAL (19:18)
[2019-01-10] MEDS ORDERED: BISACODYL5 MG ORAL (19:22)
--- NOTE | 2019-01-10 19:30 | NUR ---
NURSE NOTES: Recvd.quiet in bed watching TV Alert,Oriented.S/P Extubated.Resp.unlabored.P.Ox-96-98% on 2L/NC inh.Lungs Diminished BS at bases.Few scatt rh.F/Cath patent diuresis suff.Enc Deep breathing/coughing ex.See V/S.Scope SR-ST.Denies CP.Pos. to comfort.
[2019-01-10] MEDS ORDERED: ACETAMINOPHEN500 M3 ORAL (19:55)
[2019-01-10] MEDS: Dyna-Hex 2% Top Sol 2oz TOPIC SCH (20:04)
--- NOTE | 2019-01-10 21:00 | Consultation ---
DATE OF CONSULTATION: 01/10/2019 INFECTIOUS DISEASE CONSULTATION: This consult is for coverage of Dr. Zabala. CONSULTING PHYSICIAN: Jez Espinoza M.D. PRIMARY ATTENDING: Justus Grewal M.D. REASON FOR CONSULT: Sepsis and pneumonia. HISTORY OF PRESENT ILLNESS: This is a 73-year-old male admitted on 01/07/2019 from a nursing facility. He had seizure activity, decrease in O2 saturation, intubated in the ER, transferred to ICU. At the time of admission was hypotensive, had leukocytosis of 15,000, had fever of 101.9, had tachycardia up to 109. PAST MEDICAL HISTORY: Significant for COPD, hypertension, diabetes mellitus, anemia, diastolic CHF, pulmonary hypertension. ALLERGIES: No known drug allergies. MEDICATIONS: Getting methylprednisone, chlorhexidine, Protonix, Zosyn, vancomycin, lorazepam, midazolam, heparin. SOCIAL HISTORY: Has history of heroin abuse and is on methadone. Has history of alcohol abuse and smoking. Currently, [place] [facility] resident. He is . REVIEW OF SYSTEMS: Unobtainable, but the patient is doing better since admission and shock is resolved and respiratory failure is improving and the patient is supposed to be extubated today. PHYSICAL EXAMINATION: VITAL SIGNS: Temperature 98, pulse 86, blood pressure 151/93. GENERAL APPEARANCE: looks cachectic restraint. HEAD AND NECK: Orally intubated. He has some bruise in the face below the right eye. HEART: Normal rate. The patient has a 3-lumen catheter in the right internal jugular area. LUNGS: On the ventilator. Decreased sounds bilaterally. ABDOMEN: Soft, nontender. EXTREMITIES: Has no edema. Has muscle atrophy. LABORATORY AND DIAGNOSTIC DATA: WBC 8, hemoglobin 9.5, hematocrit 29.7, platelets 221. Sodium 142, potassium 3.9, chloride 107, bicarbonate 26, BUN 21, creatinine 0.7, glucose 94. UA showed normal wbc 2 to 4. Chest x-ray at the time of admission showed bilateral infiltrate. VRE screen is positive. Sputum culture is growing a couple of delfino and gram-negative bacilli. IMPRESSION: Sepsis with fever and leukocytosis. The patient's have pneumonia,likely aspiration pneumonia. In previous admission has Pseudomonas in sputum, seizure activity, severe COPD, cachexia, anemia, diastolic CHF, pulmonary hypertension. RECOMMENDATION: We will continue with Zosyn. We will discontinue IV vancomycin. We will follow up the chest x-ray. At the end of my exam, I thank Dr. Grewal for involving me in the care of this patient. Jez Espinoza M.D. DR: ELVIRA JOB#: [id number] CC: RICHARD
--- NOTE | 2019-01-10 22:00 | NUR ---
NURSE NOTES: HS Care rendered.Repositioned,Kept comfortable.Due medical screener.No distress.
[2019-01-11] VITALS (24 sets, daily range): BP systolic 115–164; BP diastolic 68–95
--- NOTE | 2019-01-11 00:10 | NUR ---
NURSE NOTES: Cont.to enc.deep breathing/coughing ex.Cooperative.Diuresis well from lasix rcvd.See V/s.Scope rhythm same.
--- NOTE | 2019-01-11 02:00 | NUR ---
NURSE NOTES: Asleep,Resp.Unlabored.Sat.95-97%.no distress.
[2019-01-11] MEDS: Piperacillin/Tazobactam 3.375 GM in NS 110 ML IVPB SCH ×3 (02:39→17:34)
[2019-01-11] MEDS ORDERED: DOPamine 400mg/250ml 250 ML IV ONE (02:52)
--- NOTE | 2019-01-11 03:47 | NUR ---
NURSE NOTES: Blood drawn for cbc/bmp spec.to Lab.leticia Ruiz chg.cont.plan of care.
--- NOTE | 2019-01-11 04:00 | Progress Note ---
DATE: 01/10/2019 CARDIOLOGY PROGRESS NOTE SUBJECTIVE: The patient remains on ventilator support. Weaning efforts are in progress. He is more calm and less agitated. He remains on IV antibiotics and steroids. An NG-tube could not be placed by staff. He remains NPO and on IV fluids. OBJECTIVE: VITAL SIGNS: Blood pressure 145/85, pulse 96, and respirations 17. Afebrile. HEENT: orally intubated. Thin trach secretions. LUNGS: Bilateral rhonchi. No wheezing. HEART: Regular rhythm and rate. Normal S1, S2. ABDOMEN: Soft. EXTREMITIES: Dependent edema and stasis derm changes seen. LABORATORY DATA: Sputum culture with gram-negative bacillus. White count 8 and hemoglobin 9.5. Potassium 3.9, BUN 21, and creatinine 0.7. Magnesium 2.1. Phosphorus 2.6. Pro-natriuretic peptide has increased to 5100. IMPRESSION: 1. Respiratory failure. 2. Pulmonary hypertension. 3. Gram-negative healthcare-acquired pneumonia. 4. Acute on chronic diastolic congestive heart failure. 5. Methadone dependence. PLAN: 1. Weaning efforts. 2. Antimicrobials. 3. Anxiolytics and sedation as needed. 4. DVT and stress ulcer prophylaxis. 5. Diuresis. Justus Grewal M.D. DR: BRIDGET JOB#: [id number] CC:
[2019-01-11 05:03] LABS: HEMOGLOBIN 10.6 G/DL (14.2-18.0); MEAN CORPUSCULAR VOLUME 90 FL (80-99); PLATELET COUNT 230 K/UL (150-450); RED BLOOD COUNT 3.78 M/UL (4.70-6.10); RED CELL DISTRIBUTION WIDTH 16.5 % (11.6-14.8); WHITE BLOOD COUNT 6.3 K/UL (4.8-10.8)
[2019-01-11 05:29] LABS: ANION GAP 5 mmol/L (5-15); BLOOD UREA NITROGEN 21 mg/dL (7-18); CALCIUM 8.8 MG/DL (8.5-10.1); CARBON DIOXIDE 34 MMOL/L (21-32); CHLORIDE 102 MMOL/L (98-107); CREATININE 0.8 MG/DL (0.55-1.30); SODIUM 141 MMOL/L (136-145)
--- NOTE | 2019-01-11 07:12 | NUR ---
NURSE NOTES: Received patient from ANN Owen. Patient VS stable at this time with no sign of acute distress. Patient sitting up in bed. Patient complaining of thirst at this time. He has a video swallow ordered. Will follow up. Patient on 3L NC at this time with stable oxygen saturation at 98%. Patient alert and oriented at this time. Patient recently extubated on 01/10. Patient has a ovalles for urine retention that is patent and asymptomatic at this time. Patient has scars on bilateral upper extremities. Patient has slight redness of the lumbar spine and sacrum. Patient has a scratch on the right dean. Patient had a right internal jugular triple lumen catheter that is patent and asymptomatic at this time. Dressing was changed on 01/08. Patient bed in low position with bed alarm on and call light in reach at this time. Will follow up with speech therapy regarding video swallow evaluation.
--- NOTE | 2019-01-11 07:15 | NUR ---
HAND-OFF: Report given to ANN PIERRE.
--- NOTE | 2019-01-11 08:05 | General Progress Note ---
Assessment/Plan Problem List: (1) Diabetes mellitus ICD Codes: E11.9 - Type 2 diabetes mellitus without complications SNOMED: 10438027 (2) Respiratory distress ICD Codes: R06.03 - Acute respiratory distress SNOMED: 423518040 (3) Heroin abuse ICD Codes: F11.10 - Heroin abuse SNOMED: 138263168 (4) CHF (congestive heart failure) ICD Codes: I50.9 - Heart failure, unspecified SNOMED: 24562078 (5) Respiratory failure ICD Codes: J96.90 - Respiratory failure, unspecified, unspecified whether with hypoxia or hypercapnia SNOMED: 986461658 Qualifiers: Qualified Codes: J96.01 - Acute respiratory failure with hypoxia; J96.02 - Acute respiratory failure with hypercapnia (6) Pneumonia involving right lung ICD Codes: J18.9 - Pneumonia, unspecified organism SNOMED: 118611019 Qualifiers: Qualified Codes: J18.9 - Pneumonia, unspecified organism (7) COPD (chronic obstructive pulmonary disease) ICD Codes: J44.9 - Chronic obstructive pulmonary disease, unspecified SNOMED: 95184944 Qualifiers: Qualified Codes: J44.9 - Chronic obstructive pulmonary disease, unspecified Status: stable, progressing Assessment/Plan: cont current rx iv abx iv steroids- wean as able resp rx monitor labs prn anxiolytics video swallow dvt/stress ulcer prophylaxis Subjective ROS Limited/Unobtainable: No Constitutional: Reports: malaise, weakness HEENT: Reports: no symptoms Cardiovascular: Reports: no symptoms Respiratory: Reports: cough Gastrointestinal/Abdominal: Reports: no symptoms Genitourinary: Reports: no symptoms Neurologic/Psychiatric: Reports: no symptoms Endocrine: Reports: no symptoms Hematologic/Lymphatic: Reports: no symptoms Allergies: Coded Allergies: No Known Allergies (Unverified , 10/17/18) All Systems: reviewed and negative except above Subjective extubated. no complaints. denies sob. Objective Last 24 Hour Vital Signs Date Time Temp Pulse Resp B/P (MAP) Pulse Ox O2 Delivery O2 Flow Rate FiO2 01/11/19 07:00 96 15 141/88 (105) 97 01/11/19 06:40 84 17 Nasal Cannula 2.0 28 01/11/19 06:40 Nasal Cannula 2.0 28 01/11/19 06:00 81 16 137/81 (99) 97 01/11/19 05:00 81 16 136/86 (103) 95 01/11/19 04:00 84 01/11/19 04:00 97.8 84 18 159/88 (111) 96 01/11/19 04:00 Nasal Cannula 2.0 Nasal Cannula 10.0 Nasal Cannula 2.0 01/11/19 03:00 70 16 159/88 (111) 97 01/11/19 02:00 70 17 159/88 (111) 95 01/11/19 01:00 75 19 147/82 (103) 96 01/11/19 00:00 79 01/11/19 00:00 Nasal Cannula 2.0 Nasal Cannula 10.0 Nasal Cannula 2.0 01/11/19 00:00 97.8 79 18 157/92 (113) 96 01/10/19 23:00 69 18 154/91 (112) 97 01/10/19 22:00 74 18 144/79 (100) 97 01/10/19 21:00 113 19 122/72 (89) 95 01/10/19 20:00 97.7 73 17 140/75 (96) 96 01/10/19 20:00 73 01/10/19 20:00 Nasal Cannula 2.0 Nasal Cannula 10.0 Nasal Cannula 2.0 01/10/19 19:00 69 17 161/81 (107) 98 01/10/19 18:00 78 18 155/94 (114) 98 01/10/19 17:00 78 18 174/87 (116) 100 01/10/19 16:00 Nasal Cannula 2.0 Nasal Cannula 10.0 Nasal Cannula 2.0 01/10/19 16:00 93 01/10/19 16:00 2.0 50 01/10/19 16:00 97.6 67 18 129/88 (102) 100 01/10/19 15:00 65 19 166/95 (118) 100 01/10/19 14:00 90 19 152/100 (117) 100 01/10/19 13:00 89 22 165/88 (113) 100 01/10/19 12:03 88 20 Venturi Mask 12.0 50 01/10/19 12:03 Venturi Mask 12.0 50 01/10/19 12:01 Venturi Mask 12.0 50 01/10/19 12:00 50 01/10/19 12:00 83 01/10/19 12:00 97.8 90 20 156/79 (104) 100 01/10/19 12:00 Simple Mask 10.0 Simple Mask 10.0 Simple Mask 10.0 01/10/19 11:00 86 22 151/93 (112) 98 01/10/19 10:00 96 22 132/92 (105) 97 01/10/19 09:24 99 26 40 01/10/19 09:00 96 22 123/88 (100) 97 01/10/19 08:12 85 26 40 40 Intake and Output 01/10/19 01/11/19 19:00 07:00 Intake Total 174.0 ml 160 ml Output Total 460 ml 1020 ml Balance -286.0 ml -860 ml Intake Oral 50 ml 160 ml IV Total 124.0 ml Output Urine Total 460 ml 1020 ml # Bowel Movements 1 Laboratory Tests 01/10/19 09:45: Arterial Blood pH 7.384, Arterial Blood Partial Pressure CO2 42.5, Arterial Blood Partial Pressure O2 73.6L, Arterial Blood HCO3 24.8, Arterial Blood Oxygen Saturation 93.6L, Arterial Blood Base Excess -0.3, Cameron Test Positive 01/11/19 05:00: White Blood Count 6.3, Red Blood Count 3.78L, Hemoglobin 10.6L, Hematocrit 34.0L , Mean Corpuscular Volume 90, Mean Corpuscular Hemoglobin 28.2, Mean Corpuscular Hemoglobin Concent 31.3L, Red Cell Distribution Width 16.5H, Platelet Count 230, Mean Platelet Volume 5.7L, Neutrophils (%) (Auto) , Lymphocytes (%) (Auto) , Monocytes (%) (Auto) , Eosinophils (%) (Auto) , Basophils (%) (Auto) , Neutrophils % (Manual) [Pending], Lymphocytes % (Manual) [Pending], Platelet Estimate [Pending], Platelet Morphology [Pending], Sodium Level 141, Potassium Level 3.0L, Chloride Level 102, Carbon Dioxide Level 34H, Anion Gap 5, Blood Urea Nitrogen 21H, Creatinine 0.8, Estimat Glomerular Filtration Rate , Glucose Level 115H, Calcium Level 8.8 01/11/19 06:40: Arterial Blood pH 7.476H, Arterial Blood Partial Pressure CO2 45.5H, Arterial Blood Partial Pressure O2 69.5L, Arterial Blood HCO3 32.8H, Arterial Blood Oxygen Saturation 94.1L, Arterial Blood Base Excess 8.3H, Cameron Test Positive Height (Feet): 5 Height (Inches): 1.00 Weight (Pounds): 104 Objective General Appearance: WD/WN, alert Neck: supple Cardiovascular: normal peripheral pulses, normal rate, regular rhythm Respiratory/Chest: chest wall non-tender, lungs clear, normal breath sounds Abdomen: normal bowel sounds, non tender, soft, no organomegaly Edema: no edema noted Arm (L), no edema noted Arm (R), no edema noted Leg (L), no edema noted Leg (R), no edema noted Pedal (L), no edema noted Pedal (R), no edema noted Generalized Varun Stewart MD January 11, 2019 08:05
[2019-01-11] MEDS ORDERED: Sodium Chloride for KCL Premix X 3hrs IV SCH (08:15)
[2019-01-11 08:29] LABS: ALANINE AMINOTRANSFERASE 12 U/L (12-78); ALBUMIN 2.6 G/DL (3.4-5.0); ALKALINE PHOSPHATASE 112 U/L (46-116); ASPARTATE AMINO TRANSFERASE 20 U/L (15-37); BILIRUBIN,DIRECT 0.2 MG/DL (0.0-0.3); BILIRUBIN,TOTAL 0.5 MG/DL (0.2-1.0)
--- NOTE | 2019-01-11 09:00 | NUR ---
NURSE NOTES: Patient VS stable at this time. Patient complaining of hunger at this time. Will follow up with speech therapy regarding the order for swallow evaluation. Patient needs to be evaluated before a diet can be ordered.
[2019-01-11] MEDS: Solu-MEDROL 125mg Inj IVP SCH ×2 (09:16→20:44)
[2019-01-11] MEDS: Pantoprazole Inj IVP SCH (09:16)
[2019-01-11] MEDS: Heparin 5000 units/ml inj SUBQ SCH ×2 (09:18→20:48)
--- NOTE | 2019-01-11 09:30 | Pulmonology Progress Note ---
Assessment/Plan Assessment/Plan IMPRESSION: 1. Respiratory failure. Now extubated 2. Advanced chronic obstructive pulmonary disease. 3. Hypoxemia. 4. Possible seizure. 5. Pulmonary hypertension. 6. Diastolic heart failure. DISCUSSION: Transfer to tele Keep intake/output negative Continue breathing treatments and broad spectrum antibiotics, I will follow carefully. Abhijit Morris M.D. Subjective Interval Events: Extubated yesterday; douing better Constitutional: Reports: no symptoms HEENT: Repors: no symptoms Respiratory: Reports: no symptoms Cardiovascular: Reports: no symptoms Gastrointestinal/Abdominal: Reports: no symptoms Genitourinary: Reports: no symptoms Allergies: Coded Allergies: No Known Allergies (Unverified , 10/17/18) Objective Last 24 Hour Vital Signs Date Time Temp Pulse Resp B/P (MAP) Pulse Ox O2 Delivery O2 Flow Rate FiO2 01/11/19 07:00 96 15 141/88 (105) 97 01/11/19 06:40 84 17 Nasal Cannula 2.0 28 01/11/19 06:40 Nasal Cannula 2.0 28 01/11/19 06:00 81 16 137/81 (99) 97 01/11/19 05:00 81 16 136/86 (103) 95 01/11/19 04:00 84 01/11/19 04:00 97.8 84 18 159/88 (111) 96 01/11/19 04:00 Nasal Cannula 2.0 Nasal Cannula 10.0 Nasal Cannula 2.0 01/11/19 03:00 70 16 159/88 (111) 97 01/11/19 02:00 70 17 159/88 (111) 95 01/11/19 01:00 75 19 147/82 (103) 96 01/11/19 00:00 79 01/11/19 00:00 Nasal Cannula 2.0 Nasal Cannula 10.0 Nasal Cannula 2.0 01/11/19 00:00 97.8 79 18 157/92 (113) 96 01/10/19 23:00 69 18 154/91 (112) 97 01/10/19 22:00 74 18 144/79 (100) 97 01/10/19 21:00 113 19 122/72 (89) 95 01/10/19 20:00 97.7 73 17 140/75 (96) 96 01/10/19 20:00 73 01/10/19 20:00 Nasal Cannula 2.0 Nasal Cannula 10.0 Nasal Cannula 2.0 01/10/19 19:00 69 17 161/81 (107) 98 01/10/19 18:00 78 18 155/94 (114) 98 01/10/19 17:00 78 18 174/87 (116) 100 01/10/19 16:00 Nasal Cannula 2.0 Nasal Cannula 10.0 Nasal Cannula 2.0 01/10/19 16:00 93 01/10/19 16:00 2.0 50 01/10/19 16:00 97.6 67 18 129/88 (102) 100 01/10/19 15:00 65 19 166/95 (118) 100 01/10/19 14:00 90 19 152/100 (117) 100 01/10/19 13:00 89 22 165/88 (113) 100 01/10/19 12:03 88 20 Venturi Mask 12.0 50 01/10/19 12:03 Venturi Mask 12.0 50 01/10/19 12:01 Venturi Mask 12.0 50 01/10/19 12:00 50 01/10/19 12:00 83 01/10/19 12:00 97.8 90 20 156/79 (104) 100 01/10/19 12:00 Simple Mask 10.0 Simple Mask 10.0 Simple Mask 10.0 01/10/19 11:00 86 22 151/93 (112) 98 01/10/19 10:00 96 22 132/92 (105) 97 Intake and Output 01/10/19 01/11/19 18:59 06:59 Intake Total 174.0 ml 160 ml Output Total 430 ml 1000 ml Balance -256.0 ml -840 ml Intake Oral 50 ml 160 ml IV Total 124.0 ml Output Urine Total 430 ml 1000 ml # Bowel Movements 1 General Appearance: no acute distress HEENT: normocephalic Respiratory/Chest: chest wall non-tender, lungs clear Cardiovascular: normal peripheral pulses, normal rate Abdomen: normal bowel sounds Laboratory Tests 01/10/19 09:45: Arterial Blood pH 7.384, Arterial Blood Partial Pressure CO2 42.5, Arterial Blood Partial Pressure O2 73.6L, Arterial Blood HCO3 24.8, Arterial Blood Oxygen Saturation 93.6L, Arterial Blood Base Excess -0.3, Cameron Test Positive 01/11/19 05:00: White Blood Count 6.3, Red Blood Count 3.78L, Hemoglobin 10.6L, Hematocrit 34.0L , Mean Corpuscular Volume 90, Mean Corpuscular Hemoglobin 28.2, Mean Corpuscular Hemoglobin Concent 31.3L, Red Cell Distribution Width 16.5H, Platelet Count 230, Mean Platelet Volume 5.7L, Neutrophils (%) (Auto) , Lymphocytes (%) (Auto) , Monocytes (%) (Auto) , Eosinophils (%) (Auto) , Basophils (%) (Auto) , Differential Total Cells Counted 100, Neutrophils % ( Manual) 88H, Lymphocytes % (Manual) 10L, Monocytes % (Manual) 2, Eosinophils % ( Manual) 0, Basophils % (Manual) 0, Band Neutrophils 0, Platelet Estimate Adequate, Platelet Morphology Normal, Anisocytosis 1+, Sodium Level 141, Potassium Level 3.0L, Chloride Level 102, Carbon Dioxide Level 34H, Anion Gap 5 , Blood Urea Nitrogen 21H, Creatinine 0.8, Estimat Glomerular Filtration Rate , Glucose Level 115H, Calcium Level 8.8, Total Bilirubin 0.5, Direct Bilirubin 0.2 , Aspartate Amino Transf (AST/SGOT) 20, Alanine Aminotransferase (ALT/SGPT) 12, Alkaline Phosphatase 112, Total Protein 7.0, Albumin 2.6L 01/11/19 06:40: Arterial Blood pH 7.476H, Arterial Blood Partial Pressure CO2 45.5H, Arterial Blood Partial Pressure O2 69.5L, Arterial Blood HCO3 32.8H, Arterial Blood Oxygen Saturation 94.1L, Arterial Blood Base Excess 8.3H, Cameron Test Positive Current Medications Medications (Trade) Dose Ordered Sig/Aimee Route PRN Reason Start Time Stop Time Status Last Admin Dose Admin Albuterol/ Ipratropium (Albuterol/ Ipratropium) 3 ml Q4H PRN HHN Shortness of Breath 01/07/19 21:09 01/12/19 21:08 Chlorhexidine Gluconate (Mayra-Hex 2%) 1 applic DAILY@1999 TOPIC 01/08/19 20:00 02/07/19 19:59 01/10/19 20:04 Haloperidol Lactate 5 mg/ Dextrose 56 ml @ 224 mls/hr EVERY 6 HOURS PRN IVPB Agitation 01/09/19 16:30 02/08/19 16:29 Heparin Sodium (Porcine) (Heparin 5000 units/ml) 5,000 units EVERY 12 HOURS SUBQ 01/07/19 21:00 02/06/19 20:59 01/11/19 09:18 Lorazepam (Ativan 2mg/ml 1ml) 1 mg Q4H PRN IV For Anxiety 01/07/19 21:09 01/14/19 21:08 Methylprednisolone Sodium Succinate (Solu-MEDROL) 60 mg EVERY 12 HOURS IVP 01/10/19 09:00 02/09/19 08:59 01/11/19 09:16 Midazolam HCl 100 ml @ 0 mls/hr Q24H PRN IVPB Agitation 01/07/19 21:09 01/14/19 21:08 01/08/19 22:03 Pantoprazole (Protonix) 40 mg DAILY IVP 01/08/19 09:00 02/07/19 08:59 01/11/19 09:16 Piperacillin Sod/ Tazobactam Sod 3.375 gm/Sodium Chloride 110 ml @ 27.5 mls/hr Q8H IVPB 01/08/19 02:00 01/15/19 01:59 01/11/19 02:39 Potassium Chloride 100 ml @ 100 mls/hr Q1HR IVPB 01/11/19 09:00 01/11/19 11:59 01/11/19 09:09 Sodium Chloride 300 ml @ 100 mls/hr Q3H IV 01/11/19 08:15 01/11/19 11:14 01/11/19 09:16 Abhijit Morris MD January 11, 2019 09:30
--- NOTE | 2019-01-11 09:34 | NUR ---
CASE MANAGEMENT:REVIEW 01/11/19 SI: RESPIRATORY FAILURE. COPD. PNA. CHF 97.8 84 18 159/88 96% ON 2L/NC H/H-10.6/34.0 K-3.0 PH+7.47 PCO2+45.5 PO2-69.5 HCO3+32.8 IS: IV KCL Q1HRS X3 BAGS IV NS BOLUS IV SOLUMEDROL Q12 IV PROTONIX QD IV ZOSYN Q8HRS HEPARIN SQ Q12 : ICU STATUS DCP: FROM [place] CARE PLAN: TRANSFER TO TELEMETRY
--- NOTE | 2019-01-11 09:35 | NUR ---
RADIOLOGY DEPT., CHEST X-RAY DONE.-P.DYE
--- NOTE | 2019-01-11 09:44 | NUR ---
ST NOTE: BEDSIDE SWALLOW EVAL RECEIVED BEDSIDE SWALLOW EVAL ORDER CHART REVIEWED PRIOR THE EVALUATION REFERRED BY DR. AYALA(PRIMARY PHYSICIAN: DR. MCLEOD) PT IS A 73-YEAR-OLD MALE WHO WAS ADMITTED FOR RESPIRATORY FAILURE. PT WAS INTUBATED FOR 3 DAYS AND EXTUBATED ON 01/10/19 AND PT IS ALSO TREATED WITH PNA. PT HAS HISTORY OF COPD, HTN, DMII, CHF, PSYCH(DEPRESSION), SUBSTANCE AND ALCOHOL USE, H/O NONCOMPLIANCE. PER CXR(01/07/19), PATCHY BILATERAL INFILTRATES. PER BEDSIDE SWALLOW EV[place] [facility] [place]: PROBABLE MILD TO MODERATE OROPHARYNGEAL DYSPHAGIA. PT WAS PUT ON MOIST PUREE WITH NECTAR THICK LIQUIDS DIET. PLOF: [facility], PER CHART, PT WAS ON DYSPHAGIA DIET: CHOPPED MEAT AND VEGETABLE WITH THIN LIQUIDS. PER PT'S POLST: PT IS FULL CODE AND FULL TREATMENT, ? REGARDING TUBE FEEDING IF NEEDED. CURRENT STATUS: PT SEEN AT BEDSIDE IN AM. ALERT, COOPERATIVE, FOLLOWS DIRECTIONS, ORIENTED X 2 TO 3, UNABLE TO NAME THE DAY, MONTH AND YEAR. VOICE IS SOFT. PT IS WITH 2L NASAL CANNULA. ORAL MOTOR EXAMINATION: PT IS EDENTULOUS. TONGUE IS IN MIDLINE, FUNCTIONAL LABIAL AND LINGUAL MOVEMENT, BUT SEEMED MILDLY REDUCED STRENGTH. GIVEN PO TRIALS: THIN(CUP-SELF), NECTAR THICK(TSP), PUREE(TSP) AND CRACKER(1/2) INITIAL IMPRESSION: PROBABLE PERSISTENT MILD TO MODERATE OROPHARYNGEAL DYSPHAGIA SLOW MASTICATION DUE TO PT EDENTULOUS FUNCTIONAL ORAL TRANSIT TIME(2 TO 3 SECONDS) UNTIL PT TRIGGERED SWALLOW RESPONSE, MILDLY REDUCED LARYNGEAL ELEVATION, IMMEDIATE AND DELAYED COUGHING WITH THIN LIQUIDS POST SWALLOW. GIVEN PT HAS H/O COPD AND PNA(NEW ONSET), SILENT ASPIRATION RISK IS NOT EXCLUDED. RECOMMENDATIONS: 1. PT EXPRESSED THE WANT AND NEED TO EAT/DRINK BY MOUTH. FOR QUALITY OF LIFE, SLOWLY INITIATE LOW NA MECH SOFT(FINELY CHOPPED) WITH NECTAR THICK LIQUIDS. PT REFUSED PUREED/GROUND FOOD. 2. ASPIRATION PRECAUTIONS 3. MODIFIED BARIUM SWALLOW STUDY TO R/O ANY (SILENT) ASPIRATION RISK AND ETIOLOGY. 4. SKILLED ST MANAGEMENT. D/W PT AND RN, GABBY AND RAINER CHAVEZ. POSTED ASPIRATION PRECAUTIONS SIGN.
--- NOTE | 2019-01-11 11:00 | NUR ---
NURSE NOTES: Patient VS stable at this time. Patient has his swallow evaluation and he now has a low sodium diet, pureed/finely chopped with nectar thick liquid. Patient ate about 25% of breakfast. Bed in low position with bed alarm on.
--- NOTE | 2019-01-11 11:32 | Diagnostic Imaging Report ---
Indication: Dyspnea Comparison: 01/07/2019 A single view chest radiograph was obtained. Findings: Right upper lobe infiltrate and perihilar infiltrates demonstrated. The current exam limited by rotation. Patient has been extubated. Right jugular central venous catheter is stable. IMPRESSION: Patchy infiltrates relatively stable. Exam limited by rotation
--- NOTE | 2019-01-11 11:47 | Infectious Diseases Prog Note ---
Assessment/Plan Assessment/Plan IMPRESSION: Sepsis with fever and leukocytosis. Pseudomonas pneumonia seizure activity, severe COPD, cachexia, anemia, diastolic CHF, pulmonary hypertension. VRE colonization RECOMMENDATION: continue with Zosyn contact isolation Wound care Subjective ROS Limited/Unobtainable: Yes Constitutional: Reports: no symptoms, other - doing better Respiratory: Reports: productive cough, other - extubated Gastrointestinal/Abdominal: Reports: no symptoms Genitourinary: Reports: no symptoms Allergies: Coded Allergies: No Known Allergies (Unverified , 10/17/18) Objective Vital Signs Last 24 Hour Vital Signs Date Time Temp Pulse Resp B/P (MAP) Pulse Ox O2 Delivery O2 Flow Rate FiO2 01/11/19 08:00 Nasal Cannula 4.0 01/11/19 07:00 96 15 141/88 (105) 97 01/11/19 06:40 84 17 Nasal Cannula 2.0 28 01/11/19 06:40 Nasal Cannula 2.0 28 01/11/19 06:00 81 16 137/81 (99) 97 01/11/19 05:00 81 16 136/86 (103) 95 01/11/19 04:00 84 01/11/19 04:00 97.8 84 18 159/88 (111) 96 01/11/19 04:00 Nasal Cannula 2.0 Nasal Cannula 10.0 Nasal Cannula 2.0 01/11/19 03:00 70 16 159/88 (111) 97 01/11/19 02:00 70 17 159/88 (111) 95 01/11/19 01:00 75 19 147/82 (103) 96 01/11/19 00:00 79 01/11/19 00:00 Nasal Cannula 2.0 Nasal Cannula 10.0 Nasal Cannula 2.0 01/11/19 00:00 97.8 79 18 157/92 (113) 96 01/10/19 23:00 69 18 154/91 (112) 97 01/10/19 22:00 74 18 144/79 (100) 97 01/10/19 21:00 113 19 122/72 (89) 95 01/10/19 20:00 97.7 73 17 140/75 (96) 96 01/10/19 20:00 73 01/10/19 20:00 Nasal Cannula 2.0 Nasal Cannula 10.0 Nasal Cannula 2.0 01/10/19 19:00 69 17 161/81 (107) 98 01/10/19 18:00 78 18 155/94 (114) 98 01/10/19 17:00 78 18 174/87 (116) 100 01/10/19 16:00 Nasal Cannula 2.0 Nasal Cannula 10.0 Nasal Cannula 2.0 01/10/19 16:00 93 01/10/19 16:00 2.0 50 01/10/19 16:00 97.6 67 18 129/88 (102) 100 01/10/19 15:00 65 19 166/95 (118) 100 01/10/19 14:00 90 19 152/100 (117) 100 01/10/19 13:00 89 22 165/88 (113) 100 01/10/19 12:03 88 20 Venturi Mask 12.0 50 01/10/19 12:03 Venturi Mask 12.0 50 01/10/19 12:01 Venturi Mask 12.0 50 01/10/19 12:00 50 01/10/19 12:00 83 01/10/19 12:00 97.8 90 20 156/79 (104) 100 01/10/19 12:00 Simple Mask 10.0 Simple Mask 10.0 Simple Mask 10.0 Height (Feet): 5 Height (Inches): 1.00 Weight (Pounds): 104 General Appearance: cachetic HEENT: mucous membranes moist Respiratory/Chest: decreased breath sounds Cardiovascular: normal rate Abdomen: soft, non tender Genitourinary: other - Kimball catheter Extremities: no edema Skin: ulcers Neurologic/Psychiatric: alert, responsive Musculoskeletal: atrophy Laboratory Tests Test 01/11/19 05:00 01/11/19 06:40 White Blood Count 6.3 K/UL (4.8-10.8) Red Blood Count 3.78 M/UL (4.70-6.10) L Hemoglobin 10.6 G/DL (14.2-18.0) L Hematocrit 34.0 % (42.0-52.0) L Mean Corpuscular Volume 90 FL (80-99) Mean Corpuscular Hemoglobin 28.2 PG (27.0-31.0) Mean Corpuscular Hemoglobin Concent 31.3 G/DL (32.0-36.0) L Red Cell Distribution Width 16.5 % (11.6-14.8) H Platelet Count 230 K/UL (150-450) Mean Platelet Volume 5.7 FL (6.5-10.1) L Neutrophils (%) (Auto) % (45.0-75.0) Lymphocytes (%) (Auto) % (20.0-45.0) Monocytes (%) (Auto) % (1.0-10.0) Eosinophils (%) (Auto) % (0.0-3.0) Basophils (%) (Auto) % (0.0-2.0) Differential Total Cells Counted 100 Neutrophils % (Manual) 88 % (45-75) H Lymphocytes % (Manual) 10 % (20-45) L Monocytes % (Manual) 2 % (1-10) Eosinophils % (Manual) 0 % (0-3) Basophils % (Manual) 0 % (0-2) Band Neutrophils 0 % (0-8) Platelet Estimate Adequate Platelet Morphology Normal Anisocytosis 1+ Sodium Level 141 MMOL/L (136-145) Potassium Level 3.0 MMOL/L (3.5-5.1) L Chloride Level 102 MMOL/L (98-107) Carbon Dioxide Level 34 MMOL/L (21-32) H Anion Gap 5 mmol/L (5-15) Blood Urea Nitrogen 21 mg/dL (7-18) H Creatinine 0.8 MG/DL (0.55-1.30) Estimat Glomerular Filtration Rate mL/min (>60) Glucose Level 115 MG/DL (74-106) H Calcium Level 8.8 MG/DL (8.5-10.1) Total Bilirubin 0.5 MG/DL (0.2-1.0) Direct Bilirubin 0.2 MG/DL (0.0-0.3) Aspartate Amino Transf (AST/SGOT) 20 U/L (15-37) Alanine Aminotransferase (ALT/SGPT) 12 U/L (12-78) Alkaline Phosphatase 112 U/L (46-116) Total Protein 7.0 G/DL (6.4-8.2) Albumin 2.6 G/DL (3.4-5.0) L Arterial Blood pH 7.476 (7.350-7.450) Arterial Blood Partial Pressure CO2 45.5 mmHg (35.0-45.0) H Arterial Blood Partial Pressure O2 69.5 mmHg (75.0-100.0) L Arterial Blood HCO3 32.8 mmol/L (22.0-26.0) H Arterial Blood Oxygen Saturation 94.1 % (95-100) L Arterial Blood Base Excess 8.3 (-2-2) H Cameron Test Positive Current Medications Medications (Trade) Dose Ordered Sig/Aimee Route PRN Reason Start Time Stop Time Status Last Admin Dose Admin Albuterol/ Ipratropium (Albuterol/ Ipratropium) 3 ml Q4H PRN HHN Shortness of Breath 01/07/19 21:09 01/12/19 21:08 Chlorhexidine Gluconate (Mayra-Hex 2%) 1 applic DAILY@2000 TOPIC 01/08/19 20:00 02/07/19 19:59 01/10/19 20:04 Haloperidol Lactate 5 mg/ Dextrose 56 ml @ 224 mls/hr EVERY 6 HOURS PRN IVPB Agitation 01/09/19 16:30 02/08/19 16:29 Heparin Sodium (Porcine) (Heparin 5000 units/ml) 5,000 units EVERY 12 HOURS SUBQ 01/07/19 21:00 02/06/19 20:59 01/11/19 09:18 Lorazepam (Ativan 2mg/ml 1ml) 1 mg Q4H PRN IV For Anxiety 01/07/19 21:09 01/14/19 21:08 Methylprednisolone Sodium Succinate (Solu-MEDROL) 60 mg EVERY 12 HOURS IVP 01/10/19 09:00 02/09/19 08:59 01/11/19 09:16 Midazolam HCl 100 ml @ 0 mls/hr Q24H PRN IVPB Agitation 01/07/19 21:09 01/14/19 21:08 01/08/19 22:03 Pantoprazole (Protonix) 40 mg DAILY IVP 01/08/19 09:00 02/07/19 08:59 01/11/19 09:16 Piperacillin Sod/ Tazobactam Sod 3.375 gm/Sodium Chloride 110 ml @ 27.5 mls/hr Q8H IVPB 01/08/19 02:00 01/15/19 01:59 01/11/19 10:43 Potassium Chloride 100 ml @ 100 mls/hr Q1HR IVPB 01/11/19 09:00 01/11/19 11:59 01/11/19 10:39 Jez Espinoza MD January 11, 2019 11:47
--- NOTE | 2019-01-11 13:00 | NUR ---
NURSE NOTES: Patient VS stable at this time. Patient has had a bowel movement. Patient cleaned at this time. Patient bed in low position with bed alarm on and call light in reach. Patient ate 25% of lunch tray. He does not like the nectar thick liquids.
--- NOTE | 2019-01-11 14:19 | NUR ---
*-* INSURANCE *-* UPDATED CLINICALS AND REVIEWS HAVE BEEN FAXED TO: [facility]; [place]...COVERING FOR YOGESH P- [phone] F- [phone]....REVIEW/CLINICAL
--- NOTE | 2019-01-11 14:45 | NUR ---
Social Service Note Patient provided an additional phone number for is his Quintin Kasper III [phone]. SW spoke with son and informed him of hospitalization. Son will be available as needed.
--- NOTE | 2019-01-11 15:00 | NUR ---
NURSE NOTES: VS stable at this time. Patient has had a second bowel movement at this time. Patient cleaned at this time. Patient awaiting transfer to telemetry when bed is available. Bed in low position with bed alarm on and call light in reach at this time.
--- NOTE | 2019-01-11 17:00 | NUR ---
NURSE NOTES: Patient had anther bowel movement. Patient denies pain or discomfort at this time. Patient still awaiting transfer to telemetry at this time. Patient bed in low position with bed alarm on and call light in reach at this time. Patient cleaned up at this time. Patient bed in low position with bed alarm on and call light in reach at this time.
--- NOTE | 2019-01-11 18:25 | NUR ---
NURSE NOTES: Patient had another bowel movement. Patient cleaned at this time. Patient ate 80% of his dinner tray. Patient denies pain. Patient bed in low position with bed alarm on and call light in reach.
--- NOTE | 2019-01-11 19:32 | NUR ---
HAND-OFF: Report given to ANN Goddard. Patient VS stable at this time with no sign of acute distress.
--- NOTE | 2019-01-11 20:00 | NUR ---
NURSE NOTES: Received pt in no acute distress. Awake, alert, orientedx4; on bed watching TV at this time. Denies pains, denies SOB. Still on O2 at 4l.m via NC saturating 95-97%. RIJ TLC intact; all three ports patent each with TKO running. Abdomen soft, denies N/V; still with FC intact, draining 30-40ml/h danae urine. Pt for transfer to [facility] as soon as bed becomes available. Plan of care explained.
[2019-01-11] MEDS: Dyna-Hex 2% Top Sol 2oz TOPIC SCH (20:44)
--- NOTE | 2019-01-11 22:00 | NUR ---
NURSE NOTES: Still remains in ICU, awaiting room availability in 2E. Awake and watches TV. Pt taking in po fluids with thickener. No swallowing difficulty noted. No choking noted.
[2019-01-12] VITALS (17 sets, daily range): BP systolic 110–178; BP diastolic 64–121
--- NOTE | 2019-01-12 | NUR ---
NURSE NOTES: Remains awake and watches TV. Denies pain, denies chest pains. Afebrile, NSR. Had Lasix 20mg IVP and Kdur 40meq at 2340, OE by Dr Grewal.
[2019-01-12] MEDS: Piperacillin/Tazobactam 3.375 GM in NS 110 ML IVPB SCH ×3 (01:36→18:15)
--- NOTE | 2019-01-12 02:00 | NUR ---
NURSE NOTES: Diuresing well. Underpad wet but 0 BM. Bathed. Taking po fluids with thickener well. Remains awake and alert.
--- NOTE | 2019-01-12 03:15 | Progress Note ---
DATE: 01/11/2019 CARDIOLOGY PROGRESS NOTE SUBJECTIVE: The patient was extubated today. He is not in any respiratory distress and denies shortness of breath. OBJECTIVE: VITAL SIGNS: Blood pressure 141/88, pulse 96, and respirations 15. Earlier, blood pressure 137/81. Monitored rhythm sinus with atrial ectopy. LUNGS: Diminished breath sounds. Scattered rhonchi. HEART: Regular rhythm and rate. Normal S1, S2 with a fourth heart sound. ABDOMEN: Soft. EXTREMITIES: With stasis derm changes and trace edema. LABORATORY AND DIAGNOSTIC: Pseudomonas is growing in the sputum. White count 6 and hemoglobin 10.6. ABG, pH 7.47, pCO2 45, and pO2 69. Sodium 141, potassium 3, bicarb 34, BUN 21, and creatinine 0.8. IMPRESSION: 1. Respiratory failure status post extubation. 2. Pseudomonas pneumonia. 3. Recovered hypoxemia. 4. Compensated respiratory acidosis. 5. Acute on chronic diastolic congestive heart failure. PLAN: 1. Additional diuresis. 2. Potassium repletion. 3. Respiratory hygiene. 4. Initiate diet with caution. Justus Grewal M.D. DR: BRIDGET JOB#: [id number] CC:
--- NOTE | 2019-01-12 04:00 | NUR ---
NURSE NOTES: Afebrile, denies pain, denies SOB. Constantly asking for food and drink. Anxious about transfer. RIJ TLC intact. NSR.
[2019-01-12 04:41] LABS: BASOPHILS % (AUTO) 1.1 % (0.0-2.0); HEMATOCRIT 32.6 % (42.0-52.0); HEMOGLOBIN 10.6 G/DL (14.2-18.0); MEAN CORPUSCULAR VOLUME 89 FL (80-99); MONOCYTES % (AUTO) 9.6 % (1.0-10.0); NEUTROPHILS % (AUTO) 83.3 % (45.0-75.0); PLATELET COUNT 216 K/UL (150-450); RED BLOOD COUNT 3.65 M/UL (4.70-6.10); RED CELL DISTRIBUTION WIDTH 16.1 % (11.6-14.8); WHITE BLOOD COUNT 5.6 K/UL (4.8-10.8)
--- NOTE | 2019-01-12 04:45 | Progress Note ---
DATE: 01/12/2019 CARDIOLOGY PROGRESS NOTE SUBJECTIVE: The patient was extubated yesterday. No respiratory distress. He received diuresis. His blood pressure parameters are labile. OBJECTIVE: VITAL SIGNS: Blood pressure ___/71, pulse 80, and respiratory rate 19. LUNGS: Coarse breath sounds, rhonchi, few wheezes. HEART: Regular rhythm and rate. Normal S1 and S2. ABDOMEN: Soft, stasis with derm changes. Intake and output negative over the past 2 days of at least 1500 mL. IMPRESSION: 1. Accelerated hypertension. 2. Acute on chronic diastolic congestive heart failure. 3. Status post respiratory failure. 4. Pseudomonas pneumonia. 5. Severe pulmonary hypertension. 6. History of heroin addiction and now methadone dependence. 7. Peripheral neuropathy. PLAN: 1. Diuresis. 2. Restart diltiazem. 3. Maintenance dose steroid. 4. Resume ____. Justus Grewal M.D. DR: CAPRI JOB#: [id number] CC:
[2019-01-12 04:55] LABS: ANION GAP 3 mmol/L (5-15); BLOOD UREA NITROGEN 24 mg/dL (7-18); CALCIUM 8.6 MG/DL (8.5-10.1); CARBON DIOXIDE 38 MMOL/L (21-32); CHLORIDE 100 MMOL/L (98-107); CREATININE 0.8 MG/DL (0.55-1.30); POTASSIUM 3.4 MMOL/L (3.5-5.1); SODIUM 140 MMOL/L (136-145)
--- NOTE | 2019-01-12 07:19 | NUR ---
HAND-OFF: Report given to Ashly Conn RN.
--- NOTE | 2019-01-12 07:20 | NUR ---
NURSE NOTES: Received pt from ANN Goddard. pt is alert and oriented x3, able to communicate needs. Denies pain or discomfort at this time. 4LNC, Spo2 95%, RR 21. Patient SR w/BBB, PAC's/PVC's and occasional irregular rhythms. HR fluctuates from 50's to 80's. RIJ triple lumen catheter intact and clean, all lumens are TKO. F/C draining clear yellow urine to gravity. Bed locked, alarmed and in lowest position. Will continue plan of care.
--- NOTE | 2019-01-12 08:47 | Pulmonology Progress Note ---
Assessment/Plan Assessment/Plan IMPRESSION: 1. Accelerated hypertension. 2. Acute on chronic diastolic congestive heart failure. 3. Status post respiratory failure. Now extubated 4. Pseudomonas pneumonia. 5. Severe pulmonary hypertension. 6. History of heroin addiction and now methadone dependence. 7. Peripheral neuropathy. DISCUSSION: Transfer to tele Keep intake/output negative Continue breathing treatments and broad spectrum antibiotics, I will follow carefully. Abhijit Morris M.D. Subjective Interval Events: Extubated 2 days ago; on 2L/min o2 Constitutional: Reports: no symptoms HEENT: Repors: no symptoms Respiratory: Reports: dry cough, shortness of breath Cardiovascular: Reports: no symptoms Gastrointestinal/Abdominal: Reports: no symptoms Genitourinary: Reports: no symptoms Neurologic: Reports: no symptoms Allergies: Coded Allergies: No Known Allergies (Unverified , 10/17/18) Objective Last 24 Hour Vital Signs Date Time Temp Pulse Resp B/P (MAP) Pulse Ox O2 Delivery O2 Flow Rate FiO2 01/12/19 08:11 Nasal Cannula 4.0 01/12/19 06:45 Nasal Cannula 2.0 28 01/12/19 06:45 82 20 Nasal Cannula 2.0 28 01/12/19 06:45 92 Nasal Cannula 2.0 28 01/12/19 06:00 67 19 146/83 (104) 96 01/12/19 05:00 64 19 146/83 (104) 97 01/12/19 04:00 Nasal Cannula 4.0 01/12/19 04:00 98.6 77 20 149/103 (118) 96 01/12/19 04:00 77 01/12/19 03:00 72 18 167/91 (116) 97 01/12/19 02:00 62 20 144/121 (129) 97 01/12/19 01:00 80 19 178/71 (106) 98 01/12/19 00:04 85 01/12/19 00:04 Nasal Cannula 4.0 01/12/19 00:00 98.5 67 19 173/95 (121) 96 01/11/19 23:00 80 18 164/92 (116) 96 01/11/19 22:00 76 18 144/73 (96) 94 01/11/19 21:00 81 18 139/84 (102) 95 01/11/19 20:00 82 01/11/19 20:00 Nasal Cannula 4.0 01/11/19 20:00 98.6 82 20 139/84 (102) 96 01/11/19 19:13 Nasal Cannula 2.0 28 01/11/19 19:13 88 18 Nasal Cannula 2.0 28 01/11/19 19:13 97 Nasal Cannula 2.0 28 01/11/19 19:00 66 17 115/68 (84) 97 01/11/19 18:00 97 20 115/68 (84) 92 01/11/19 17:00 101 20 162/70 (100) 94 01/11/19 16:00 Nasal Cannula 4.0 01/11/19 16:00 98.5 79 18 135/70 (91) 96 01/11/19 16:00 71 01/11/19 15:00 86 18 133/90 (104) 95 01/11/19 14:00 95 22 134/85 (101) 96 01/11/19 13:00 83 19 145/95 (112) 96 01/11/19 12:00 97.6 82 18 149/71 (97) 96 01/11/19 12:00 86 01/11/19 12:00 Nasal Cannula 4.0 01/11/19 11:00 76 18 145/77 (99) 96 01/11/19 10:00 96 21 136/83 (100) 94 01/11/19 09:00 78 17 131/70 (90) 96 Intake and Output 01/11/19 01/12/19 19:00 07:00 Intake Total 1091.25 ml 688.75 ml Output Total 890 ml 1490 ml Balance 201.25 ml -801.25 ml Intake Oral 340 ml 510 ml IV Total 751.25 ml 178.75 ml Output Urine Total 890 ml 1490 ml # Bowel Movements 7 General Appearance: no acute distress HEENT: normocephalic Respiratory/Chest: chest wall non-tender, lungs clear Cardiovascular: normal peripheral pulses, normal rate Abdomen: normal bowel sounds Laboratory Tests 01/12/19 04:00: White Blood Count 5.6, Red Blood Count 3.65L, Hemoglobin 10.6L, Hematocrit 32.6L , Mean Corpuscular Volume 89, Mean Corpuscular Hemoglobin 28.9, Mean Corpuscular Hemoglobin Concent 32.3, Red Cell Distribution Width 16.1H, Platelet Count 216, Mean Platelet Volume 6.4L, Neutrophils (%) (Auto) 83.3H, Lymphocytes (%) (Auto) 6.0L, Monocytes (%) (Auto) 9.6, Eosinophils (%) (Auto) 0.0, Basophils (%) (Auto) 1.1, Sodium Level 140, Potassium Level 3.4L, Chloride Level 100, Carbon Dioxide Level 38H, Anion Gap 3L, Blood Urea Nitrogen 24H, Creatinine 0.8, Estimat Glomerular Filtration Rate , Glucose Level 122H, Calcium Level 8.6, Magnesium Level 1.8 Current Medications Medications (Trade) Dose Ordered Sig/Aimee Route PRN Reason Start Time Stop Time Status Last Admin Dose Admin Albuterol/ Ipratropium (Albuterol/ Ipratropium) 3 ml Q4H PRN HHN Shortness of Breath 01/07/19 21:09 01/12/19 21:08 Chlorhexidine Gluconate (Mayra-Hex 2%) 1 applic DAILY@2000 TOPIC 01/08/19 20:00 02/07/19 19:59 01/11/19 20:44 Diltiazem HCl (Cardizem CD) 180 mg BID ORAL 01/12/19 09:00 02/11/19 08:59 Haloperidol Lactate 5 mg/ Dextrose 56 ml @ 224 mls/hr EVERY 6 HOURS PRN IVPB Agitation 01/09/19 16:30 02/08/19 16:29 Heparin Sodium (Porcine) (Heparin 5000 units/ml) 5,000 units EVERY 12 HOURS SUBQ 01/07/19 21:00 02/06/19 20:59 01/11/19 20:48 Lorazepam (Ativan 2mg/ml 1ml) 1 mg Q4H PRN IV For Anxiety 01/07/19 21:09 01/14/19 21:08 Methadone HCl (Methadone HCl) 20 mg DAILYPRN PRN ORAL For Pain 01/11/19 21:07 01/18/19 21:06 Methylprednisolone Sodium Succinate (Solu-MEDROL) 40 mg EVERY 12 HOURS IVP 01/12/19 09:00 02/11/19 08:59 Midazolam HCl 100 ml @ 0 mls/hr Q24H PRN IVPB Agitation 01/07/19 21:09 01/14/19 21:08 01/08/19 22:03 Pantoprazole (Protonix) 40 mg DAILY ORAL 01/12/19 09:00 02/11/19 08:59 Piperacillin Sod/ Tazobactam Sod 3.375 gm/Sodium Chloride 110 ml @ 27.5 mls/hr Q8H IVPB 01/08/19 02:00 01/15/19 01:59 01/12/19 01:36 Abhijit Morris MD January 12, 2019 08:47
[2019-01-12] MEDS ORDERED: Solu-MEDROL 125mg Inj IVP SCH (09:00)
[2019-01-12] MEDS ORDERED: dilTIAZem HCl CD 180mg cap ORAL SCH ×2 (09:00→21:00)
[2019-01-12] MEDS: Heparin 5000 units/ml inj SUBQ SCH (09:06)
--- NOTE | 2019-01-12 09:56 | NUR ---
RD ASSESSMENT & RECOMMENDATIONS SEE CARE ACTIVITY FOR COMPLETE ASSESSMENT DAILY ESTIMATED NEEDS: Needs based on Underweight, wound, pulmonary, HIV+, 46.8kg 30-35 kcals/kg 7592-9052 total kcals 1.25-2 g protein/kg 59-94 g total protein 25-30 mL/kg 2809-1256 total fluid mLs NUTRITION DIAGNOSIS: 1) Increased kcal and protein needs r/t wasting, HIV, underweight status, and wound healing as evidenced by moderate to severe generalized muscle and fat wasting, BMI 16.2, pt is 70% of [place] Body Weight, HIV+, w/ wounds, refer to WC eval. 2) Swallowing difficulty r/t respiratory status as evidenced by s/p extubation, now on finely chopped diet w/ NTL per NETWORK ADMIN recs. CURRENT DIET: Now Low Na finely chopped diet w/ NTL PO DIET RECOMMENDATIONS: Low Na/ texture per NETWORK ADMIN ADDITIONAL RECOMMENDATIONS: * Maintain calibrated bed scale wts * Monitor BG on solumedrol/ need for SSI, h/o DM * Wound care: w/ GI access add MIMI BID + Vit C 250mg daily * Add Ensure 1 bottle daily in b/w meals . .
--- NOTE | 2019-01-12 10:22 | NUR ---
CASE MANAGEMENT:REVIEW 01/12/19 SI: RESPIRATORY FAILURE. COPD. PNA. CHF 98.6 77 20 149/103 96% ON 4L/NC H/H-10.6/32.6 K-3.4 IS: IV SOLUMEDROL 40MG Q12 CARDIZEM PO BID IV PROTONIX QD IV ZOSYN Q8HRS HEPARIN SQ Q12 : TELEMETRY STATUS IN THE ICU DCP: FROM [facility]
--- NOTE | 2019-01-12 10:52 | Infectious Diseases Prog Note ---
Assessment/Plan Assessment/Plan antibiotics ; zosyn A 1. pseudomonas pneumonia 2. leucocytosis resolved 3. seizures 4. CHF 5. rectal VRE colonization P 1. continue zosyn 2. will follow up cultures Subjective Constitutional: Denies: fever, chills Respiratory: Reports: dry cough; Denies: shortness of breath Gastrointestinal/Abdominal: Denies: nausea, vomiting, diarrhea Musculoskeletal: Denies: pain Allergies: Coded Allergies: No Known Allergies (Unverified , 10/17/18) Objective Vital Signs Last 24 Hour Vital Signs Date Time Temp Pulse Resp B/P (MAP) Pulse Ox O2 Delivery O2 Flow Rate FiO2 01/12/19 10:00 74 19 139/82 (101) 96 01/12/19 09:04 82 146/83 01/12/19 09:00 80 19 135/81 (99) 96 01/12/19 08:11 Nasal Cannula 4.0 01/12/19 08:00 77 01/12/19 08:00 76 21 148/80 (102) 95 01/12/19 07:00 98.2 77 19 145/83 (103) 96 01/12/19 06:45 Nasal Cannula 2.0 28 01/12/19 06:45 82 20 Nasal Cannula 2.0 28 01/12/19 06:45 92 Nasal Cannula 2.0 28 01/12/19 06:00 67 19 146/83 (104) 96 01/12/19 05:00 64 19 146/83 (104) 97 01/12/19 04:00 Nasal Cannula 4.0 01/12/19 04:00 98.6 77 20 149/103 (118) 96 01/12/19 04:00 77 01/12/19 03:00 72 18 167/91 (116) 97 01/12/19 02:00 62 20 144/121 (129) 97 01/12/19 01:00 80 19 178/71 (106) 98 01/12/19 00:04 85 01/12/19 00:04 Nasal Cannula 4.0 01/12/19 00:00 98.5 67 19 173/95 (121) 96 01/11/19 23:00 80 18 164/92 (116) 96 01/11/19 22:00 76 18 144/73 (96) 94 01/11/19 21:00 81 18 139/84 (102) 95 01/11/19 20:00 82 01/11/19 20:00 Nasal Cannula 4.0 01/11/19 20:00 98.6 82 20 139/84 (102) 96 01/11/19 19:13 Nasal Cannula 2.0 28 01/11/19 19:13 88 18 Nasal Cannula 2.0 28 01/11/19 19:13 97 Nasal Cannula 2.0 28 01/11/19 19:00 66 17 115/68 (84) 97 01/11/19 18:00 97 20 115/68 (84) 92 01/11/19 17:00 101 20 162/70 (100) 94 01/11/19 16:00 Nasal Cannula 4.0 01/11/19 16:00 98.5 79 18 135/70 (91) 96 01/11/19 16:00 71 01/11/19 15:00 86 18 133/90 (104) 95 01/11/19 14:00 95 22 134/85 (101) 96 01/11/19 13:00 83 19 145/95 (112) 96 01/11/19 12:00 97.6 82 18 149/71 (97) 96 01/11/19 12:00 86 01/11/19 12:00 Nasal Cannula 4.0 01/11/19 11:00 76 18 145/77 (99) 96 Height (Feet): 5 Height (Inches): 1.00 Weight (Pounds): 102 Respiratory/Chest: lungs clear Cardiovascular: normal rate, regular rhythm, no gallop/murmur Abdomen: soft, non tender Extremities: no edema, other - right subclavian Laboratory Tests Test 01/12/19 04:00 White Blood Count 5.6 K/UL (4.8-10.8) Red Blood Count 3.65 M/UL (4.70-6.10) L Hemoglobin 10.6 G/DL (14.2-18.0) L Hematocrit 32.6 % (42.0-52.0) L Mean Corpuscular Volume 89 FL (80-99) Mean Corpuscular Hemoglobin 28.9 PG (27.0-31.0) Mean Corpuscular Hemoglobin Concent 32.3 G/DL (32.0-36.0) Red Cell Distribution Width 16.1 % (11.6-14.8) H Platelet Count 216 K/UL (150-450) Mean Platelet Volume 6.4 FL (6.5-10.1) L Neutrophils (%) (Auto) 83.3 % (45.0-75.0) H Lymphocytes (%) (Auto) 6.0 % (20.0-45.0) L Monocytes (%) (Auto) 9.6 % (1.0-10.0) Eosinophils (%) (Auto) 0.0 % (0.0-3.0) Basophils (%) (Auto) 1.1 % (0.0-2.0) Sodium Level 140 MMOL/L (136-145) Potassium Level 3.4 MMOL/L (3.5-5.1) L Chloride Level 100 MMOL/L (98-107) Carbon Dioxide Level 38 MMOL/L (21-32) H Anion Gap 3 mmol/L (5-15) L Blood Urea Nitrogen 24 mg/dL (7-18) H Creatinine 0.8 MG/DL (0.55-1.30) Estimat Glomerular Filtration Rate mL/min (>60) Glucose Level 122 MG/DL (74-106) H Calcium Level 8.6 MG/DL (8.5-10.1) Magnesium Level 1.8 MG/DL (1.8-2.4) Current Medications Medications (Trade) Dose Ordered Sig/Aimee Route PRN Reason Start Time Stop Time Status Last Admin Dose Admin Albuterol/ Ipratropium (Albuterol/ Ipratropium) 3 ml Q4H PRN HHN Shortness of Breath 01/07/19 21:09 01/12/19 21:08 Chlorhexidine Gluconate (Mayra-Hex 2%) 1 applic DAILY@1999 TOPIC 01/08/19 20:00 02/07/19 19:59 01/11/19 20:44 Diltiazem HCl (Cardizem CD) 180 mg BID ORAL 01/12/19 09:00 02/11/19 08:59 01/12/19 09:04 Haloperidol Lactate 5 mg/ Dextrose 56 ml @ 224 mls/hr EVERY 6 HOURS PRN IVPB Agitation 01/09/19 16:30 02/08/19 16:29 Heparin Sodium (Porcine) (Heparin 5000 units/ml) 5,000 units EVERY 12 HOURS SUBQ 01/07/19 21:00 02/06/19 20:59 01/12/19 09:06 Lorazepam (Ativan 2mg/ml 1ml) 1 mg Q4H PRN IV For Anxiety 01/07/19 21:09 01/14/19 21:08 Methadone HCl (Methadone HCl) 20 mg DAILYPRN PRN ORAL For Pain 01/11/19 21:07 01/18/19 21:06 Methylprednisolone Sodium Succinate (Solu-MEDROL) 40 mg EVERY 12 HOURS IVP 01/12/19 09:00 02/11/19 08:59 01/12/19 09:04 Midazolam HCl 100 ml @ 0 mls/hr Q24H PRN IVPB Agitation 01/07/19 21:09 01/14/19 21:08 01/08/19 22:03 Pantoprazole (Protonix) 40 mg DAILY ORAL 01/12/19 09:00 02/11/19 08:59 01/12/19 09:04 Piperacillin Sod/ Tazobactam Sod 3.375 gm/Sodium Chloride 110 ml @ 27.5 mls/hr Q8H IVPB 01/08/19 02:00 01/15/19 01:59 01/12/19 09:04 Jessy Zabala MD January 12, 2019 10:52
--- NOTE | 2019-01-12 11:29 | NUR ---
*-* INSURANCE *-* UPDATED CLINICALS AND REVIEWS HAVE BEEN FAXED TO: [facility]; CIARA...COVERING FOR YOGESH P- [phone] F- [phone]....REVIEW/CLINICAL
--- NOTE | 2019-01-12 11:31 | NUR ---
NURSE NOTES: Patient turns himself. Denies discomfort or pain. x2 soft bm. kept dry and clean.
--- NOTE | 2019-01-12 13:14 | NUR ---
NURSE NOTES: OBTAINED REPORT FROM GABBY JUAREZ (ICU). PT IS A 73 YR OLD MALE HERE DUE TO RESPIRATORY FAILURE. PT IS A/O X4 AND ABLE TO VERBALIZE NEEDS. HEAD TO TOE ASSESSMENT DONE. REDNESS NOTED TO MID BACK AREA AND SACRUM. SCATTERED SCARRING/SCABBING NOTED ALL OVER BUE & BLE. ECCHYMOSIS NOTED TO RIGHT EYE AND BUE. ATTEMPTED TO TAKE PHOTOS OF SKIN PER PROTOCOL (PT REFUSED).PT ORIENTED TO UNIT AND STAFF. EDUCATED PT ON RISK FOR FALL/INJURY AND RISK FOR SKIN BREAKDOWN. VERBALIZED UNDERSTANDING. FALL RISK SIGN ON DOOR/PT, NON-SKID SOCKS ON, BED ALARM ON. BED IN LOW LOCK POSITION. ALL NEEDS ANTICIPATED AND MET. CALL LIGHT WITHIN REACH AT ALL TIMES.
--- NOTE | 2019-01-12 13:15 | NUR ---
NURSE NOTES: PER REPORT FROM GABBY (RN-ICU), 1 BOTTLE OF BLOOD CULTURE GRAM POSITIVE FOR COCCI WITH CLUSTERS (LAB NOTIFIED GUNNERAMINATH) & POTASSIUM LEVEL 3.4; MD MCLEOD WAS PAGED BY RETORT COOLER TO MAKE AWARE OF POTASSIUM LEVEL BUT HAS NOT CALLED BACK. PRIMARY RN WILL FOLLOW UP.
[2019-01-12] MEDS ORDERED: Albuterol/Ipratropium 3ml neb HHN PRN (13:30)
--- NOTE | 2019-01-12 13:30 | NUR ---
TRANSFER TO FLOOR: Patient transferred to [facility]-, per Dr. Morris. Report given to ANN Be. Belongings and medications given to receiving RN. Patient is in stable condition.
--- NOTE | 2019-01-12 13:51 | NUR ---
ST NOTE: SWALLOW/SPEECH/COGNITION STATUS: PT SEEN AT BEDSIDE DURING LUNCH. ALERT, COOPERATIVE, VERBAL, PT WITH NC(4L). AT UPRIGHT POSITION. PER PT, TOLERATED FOOD WITHOUT DIFFICULTY. COMPLETED MEAL OBSERVATION WITH PT, PT ONLY TOOK A FEW BITES OF SOFT(FINELY CHOPPED) WITH NECTAR THICK LIQUIDS, NO OVERT S/S OF ASPIRATION. PT REFUSED MORE FOOD. EDUCATED PT RE: ASPIRATION PRECAUTIONS. D/W PT AND RNGABBY.
--- NOTE | 2019-01-12 16:01 | General Progress Note ---
Assessment/Plan Problem List: (1) Diabetes mellitus ICD Codes: E11.9 - Type 2 diabetes mellitus without complications SNOMED: 09095816 (2) Respiratory distress ICD Codes: R06.03 - Acute respiratory distress SNOMED: 716786216 (3) Heroin abuse ICD Codes: F11.10 - Heroin abuse SNOMED: 248678750 (4) CHF (congestive heart failure) ICD Codes: I50.9 - Heart failure, unspecified SNOMED: 05651590 (5) Respiratory failure ICD Codes: J96.90 - Respiratory failure, unspecified, unspecified whether with hypoxia or hypercapnia SNOMED: 824337899 Qualifiers: Qualified Codes: J96.01 - Acute respiratory failure with hypoxia; J96.02 - Acute respiratory failure with hypercapnia (6) Pneumonia involving right lung ICD Codes: J18.9 - Pneumonia, unspecified organism SNOMED: 715514326 Qualifiers: Qualified Codes: J18.9 - Pneumonia, unspecified organism (7) COPD (chronic obstructive pulmonary disease) ICD Codes: J44.9 - Chronic obstructive pulmonary disease, unspecified SNOMED: 76767034 Qualifiers: Qualified Codes: J44.9 - Chronic obstructive pulmonary disease, unspecified Status: stable, progressing Assessment/Plan: cont current rx iv abx iv steroids- wean as able resp rx monitor labs prn anxiolytics video swallow dvt/stress ulcer prophylaxis Subjective ROS Limited/Unobtainable: No Constitutional: Reports: malaise, weakness HEENT: Reports: no symptoms Cardiovascular: Reports: no symptoms Respiratory: Reports: no symptoms Gastrointestinal/Abdominal: Reports: no symptoms Genitourinary: Reports: no symptoms Neurologic/Psychiatric: Reports: no symptoms Endocrine: Reports: no symptoms Hematologic/Lymphatic: Reports: no symptoms Allergies: Coded Allergies: No Known Allergies (Unverified , 10/17/18) All Systems: reviewed and negative except above Subjective no complaints. denies sob.denies pain. no fever or chills Objective Last 24 Hour Vital Signs Date Time Temp Pulse Resp B/P (MAP) Pulse Ox O2 Delivery O2 Flow Rate FiO2 01/12/19 13:15 Nasal Cannula 2.0 01/12/19 13:14 98.0 77 18 127/64 (85) 99 01/12/19 13:00 102 19 148/82 (104) 96 01/12/19 12:00 98.6 94 19 137/80 (99) 96 01/12/19 12:00 94 01/12/19 12:00 Nasal Cannula 4.0 01/12/19 11:00 93 19 156/89 (111) 96 01/12/19 10:00 74 19 139/82 (101) 96 01/12/19 09:04 82 146/83 01/12/19 09:00 80 19 135/81 (99) 96 01/12/19 08:11 Nasal Cannula 4.0 01/12/19 08:00 77 01/12/19 08:00 76 21 148/80 (102) 95 01/12/19 07:00 98.2 77 19 145/83 (103) 96 01/12/19 06:45 Nasal Cannula 2.0 28 01/12/19 06:45 82 20 Nasal Cannula 2.0 28 01/12/19 06:45 92 Nasal Cannula 2.0 28 01/12/19 06:00 67 19 146/83 (104) 96 01/12/19 05:00 64 19 146/83 (104) 97 01/12/19 04:00 Nasal Cannula 4.0 01/12/19 04:00 98.6 77 20 149/103 (118) 96 01/12/19 04:00 77 01/12/19 03:00 72 18 167/91 (116) 97 01/12/19 02:00 62 20 144/121 (129) 97 01/12/19 01:00 80 19 178/71 (106) 98 01/12/19 00:04 85 01/12/19 00:04 Nasal Cannula 4.0 01/12/19 00:00 98.5 67 19 173/95 (121) 96 01/11/19 23:00 80 18 164/92 (116) 96 01/11/19 22:00 76 18 144/73 (96) 94 01/11/19 21:00 81 18 139/84 (102) 95 01/11/19 20:00 82 01/11/19 20:00 Nasal Cannula 4.0 01/11/19 20:00 98.6 82 20 139/84 (102) 96 01/11/19 19:13 Nasal Cannula 2.0 28 01/11/19 19:13 88 18 Nasal Cannula 2.0 28 01/11/19 19:13 97 Nasal Cannula 2.0 28 01/11/19 19:00 66 17 115/68 (84) 97 01/11/19 18:00 97 20 115/68 (84) 92 01/11/19 17:00 101 20 162/70 (100) 94 01/11/19 16:00 Nasal Cannula 4.0 01/11/19 16:00 98.5 79 18 135/70 (91) 96 01/11/19 16:00 71 Intake and Output 01/11/19 01/12/19 18:59 06:59 Intake Total 823.75 ml 956.25 ml Output Total 930 ml 1430 ml Balance -106.25 ml -473.75 ml Intake Oral 100 ml 750 ml IV Total 723.75 ml 206.25 ml Output Urine Total 930 ml 1430 ml # Bowel Movements 6 1 Laboratory Tests 01/12/19 04:00: White Blood Count 5.6, Red Blood Count 3.65L, Hemoglobin 10.6L, Hematocrit 32.6L , Mean Corpuscular Volume 89, Mean Corpuscular Hemoglobin 28.9, Mean Corpuscular Hemoglobin Concent 32.3, Red Cell Distribution Width 16.1H, Platelet Count 216, Mean Platelet Volume 6.4L, Neutrophils (%) (Auto) 83.3H, Lymphocytes (%) (Auto) 6.0L, Monocytes (%) (Auto) 9.6, Eosinophils (%) (Auto) 0.0, Basophils (%) (Auto) 1.1, Sodium Level 140, Potassium Level 3.4L, Chloride Level 100, Carbon Dioxide Level 38H, Anion Gap 3L, Blood Urea Nitrogen 24H, Creatinine 0.8, Estimat Glomerular Filtration Rate , Glucose Level 122H, Calcium Level 8.6, Magnesium Level 1.8 Height (Feet): 5 Height (Inches): 1.00 Weight (Pounds): 102 Objective General Appearance: WD/WN, alert Neck: supple Cardiovascular: normal peripheral pulses, normal rate, regular rhythm Respiratory/Chest: chest wall non-tender, lungs clear, normal breath sounds Abdomen: normal bowel sounds, non tender, soft, no organomegaly Edema: no edema noted Arm (L), no edema noted Arm (R), no edema noted Leg (L), no edema noted Leg (R), no edema noted Pedal (L), no edema noted Pedal (R), no edema noted Generalized Varun Stewart MD January 12, 2019 16:01
--- NOTE | 2019-01-12 16:30 | NUR ---
PT NOW A-FIB WITH HR RANGING IN 150'S-170'S. PT COMPLAINING OF CHEST PAIN. LONA DONE AND RESULTS SHOW A-FIB WITH HR 152. SPOKE WITH ON MD SHERMAN WHO IS COVERING FOR MD MCLEOD. MD SHERMAN GIVEN FULL REPORT AND MADE AWARE OF EKG RESULTS & POTASSIUM LEVEL 3.4 TODAY. NEW ORDERS NOTED AND CARRIED OUT: HOLD CARDIZEM, GIVE LOPRESSOR 5MG IVP X1 NOW AND REPEAT AFTER 5 MINS IF HR 90 OR ABOVE (MAXIMUM OF THREE DOSES), DIGOXIN 0.5MG X1 NOW, START LOPRESSOR 50MG PO BID (GIVE FIRST DOSE NOW).
[2019-01-12] MEDS ORDERED: Digoxin 0.5mg/2ml Inj IVP ONE (16:45)
[2019-01-12] MEDS ORDERED: Metoprolol 5mg/5ml Inj IVP ONE (16:45)
[2019-01-12] MEDS: LORazepam Inj 2mg/ml 1ml IV PRN (16:46)
[2019-01-12] MEDS ORDERED: Metoprolol 5mg/5ml Inj IVP SCH (17:15)
[2019-01-12] MEDS ORDERED: Metoprolol Tartrate 50mg tab ORAL SCH (17:15)
[2019-01-12] MEDS ORDERED: Metoprolol Succinate XL 50mg tab ORAL SCH (18:00)
[2019-01-12] MEDS ORDERED: Haloperidol Lactate 5 MG in D5W 55 ML IVPB PRN (18:00)
--- NOTE | 2019-01-12 19:00 | NUR ---
NURSE NOTES: CARDIZEM MED DISCONTINUED PER MD ORDER , LOPRESSOR 5MG IVP X1 NOW AND REPEAT AFTER 5 MINS IF HR 90 OR ABOVE (MAXIMUM OF THREE DOSES ALLOWED BUT MED EFFECTIVE AFTER TWO DOSES), DIGOXIN 0.5MG X1 DOSE GIVEN, START LOPRESSOR 50MG PO BID (FIRST DOSE GIVEN). PT NO LONGER C/O CHEST PAIN. VSS-B/P 123/70 AND HR 87 (RHYTHM A-FIB). WILL GIVE FULL REPORT TO DIRECTOR MOTION PICTURE RN.
--- NOTE | 2019-01-12 19:15 | NUR ---
GAVE FULL REPORT TO ANTONY JUAREZ. PT IN STABLE CONDITION AND DENIES CHEST PAIN/DISCOMFORT OF ANY KIND. NO APPARENT DISTRESS NOTED.
--- NOTE | 2019-01-12 19:30 | NUR ---
NURSE NOTES: Received Pt is resting on the bed and awake and confused. On o2 2L via nasal cannula and SaO2 99% noted. On Tele monitor with A-Fib and HR: 75's. According to previous nurse, awarded regarding A-fib. Denied pain at this time. Rt. IJ TLC site dressing is clean and dry and patent. On Foely cath and drainage well. On P-200 matrass for wound management. Changed position. Place fall precaution. Will continue to care plan.
--- NOTE | 2019-01-12 20:03 | Cardiology Progress Note ---
Assessment/Plan Assessment/Plan 1. New onset atrial fibrillation, s/p metoprolol and digoxin IV, continue with digoxin 0.125mg daily and metoprolol 50mg bid. Start DOAC. 2. Accelerated hypertension. 3. Acute on chronic diastolic congestive heart failure, LVEF at 60%. 4. Status post respiratory failure. 5. Pseudomonas pneumonia. 6. Severe pulmonary hypertension. 7. History of heroin addiction and now methadone dependence. 8. Peripheral neuropathy. Subjective Subjective Atrial fibrillation with controlled ventricular response at 85. Objective Last 24 Hour Vital Signs Date Time Temp Pulse Resp B/P (MAP) Pulse Ox O2 Delivery O2 Flow Rate FiO2 01/12/19 18:17 87 121/81 01/12/19 17:24 94 124/82 01/12/19 16:55 170 112/66 01/12/19 16:46 170 112/66 01/12/19 16:44 170 01/12/19 16:00 97.8 85 20 110/65 (80) 96 01/12/19 16:00 120 01/12/19 13:15 Nasal Cannula 2.0 01/12/19 13:14 98.0 77 18 127/64 (85) 99 01/12/19 13:00 102 19 148/82 (104) 96 01/12/19 12:00 98.6 94 19 137/80 (99) 96 01/12/19 12:00 94 01/12/19 12:00 Nasal Cannula 4.0 01/12/19 11:00 93 19 156/89 (111) 96 01/12/19 10:00 74 19 139/82 (101) 96 01/12/19 09:04 82 146/83 01/12/19 09:00 80 19 135/81 (99) 96 01/12/19 08:11 Nasal Cannula 4.0 01/12/19 08:00 77 01/12/19 08:00 76 21 148/80 (102) 95 01/12/19 07:00 98.2 77 19 145/83 (103) 96 01/12/19 06:45 Nasal Cannula 2.0 28 01/12/19 06:45 82 20 Nasal Cannula 2.0 28 01/12/19 06:45 92 Nasal Cannula 2.0 28 01/12/19 06:00 67 19 146/83 (104) 96 01/12/19 05:00 64 19 146/83 (104) 97 01/12/19 04:00 Nasal Cannula 4.0 01/12/19 04:00 98.6 77 20 149/103 (118) 96 01/12/19 04:00 77 01/12/19 03:00 72 18 167/91 (116) 97 01/12/19 02:00 62 20 144/121 (129) 97 01/12/19 01:00 80 19 178/71 (106) 98 01/12/19 00:04 85 01/12/19 00:04 Nasal Cannula 4.0 01/12/19 00:00 98.5 67 19 173/95 (121) 96 01/11/19 23:00 80 18 164/92 (116) 96 01/11/19 22:00 76 18 144/73 (96) 94 01/11/19 21:00 81 18 139/84 (102) 95 01/11/19 20:00 82 01/11/19 20:00 Nasal Cannula 4.0 01/11/19 20:00 98.6 82 20 139/84 (102) 96 Intake and Output 01/11/19 01/12/19 19:00 07:00 Intake Total 1091.25 ml 688.75 ml Output Total 890 ml 1490 ml Balance 201.25 ml -801.25 ml Intake Oral 340 ml 510 ml IV Total 751.25 ml 178.75 ml Output Urine Total 890 ml 1490 ml # Bowel Movements 7 Laboratory Tests Test 01/12/19 04:00 White Blood Count 5.6 K/UL (4.8-10.8) Red Blood Count 3.65 M/UL (4.70-6.10) L Hemoglobin 10.6 G/DL (14.2-18.0) L Hematocrit 32.6 % (42.0-52.0) L Mean Corpuscular Volume 89 FL (80-99) Mean Corpuscular Hemoglobin 28.9 PG (27.0-31.0) Mean Corpuscular Hemoglobin Concent 32.3 G/DL (32.0-36.0) Red Cell Distribution Width 16.1 % (11.6-14.8) H Platelet Count 216 K/UL (150-450) Mean Platelet Volume 6.4 FL (6.5-10.1) L Neutrophils (%) (Auto) 83.3 % (45.0-75.0) H Lymphocytes (%) (Auto) 6.0 % (20.0-45.0) L Monocytes (%) (Auto) 9.6 % (1.0-10.0) Eosinophils (%) (Auto) 0.0 % (0.0-3.0) Basophils (%) (Auto) 1.1 % (0.0-2.0) Sodium Level 140 MMOL/L (136-145) Potassium Level 3.4 MMOL/L (3.5-5.1) L Chloride Level 100 MMOL/L (98-107) Carbon Dioxide Level 38 MMOL/L (21-32) H Anion Gap 3 mmol/L (5-15) L Blood Urea Nitrogen 24 mg/dL (7-18) H Creatinine 0.8 MG/DL (0.55-1.30) Estimat Glomerular Filtration Rate mL/min (>60) Glucose Level 122 MG/DL (74-106) H Calcium Level 8.6 MG/DL (8.5-10.1) Magnesium Level 1.8 MG/DL (1.8-2.4) Objective HEENT: Normocephalic, atraumatic, PERRLA, EOMI. NECK: No JVD, no carotid bruit. LUNGS: Diminished breath sounds. Scattered rhonchi. Thin secretions. CARDIAC: Regular rhythm, rapid rate. Normal S1, S2. ABDOMEN: Soft, non-tender, non-distended, + BS. EXTREMITIES: There is right lower extremity wound and 1+ edema of the right upper extremity. Distal pulses are palpable. Mike Tariq MD January 12, 2019 20:03
--- NOTE | 2019-01-12 20:08 | NUR ---
NURSE NOTES: Dr. Tariq visited and assessed Pt. Given new order received and carried out. Will continue to monitor any change of condition.
[2019-01-12] MEDS: Dyna-Hex 2% Top Sol 2oz TOPIC SCH (20:09)
[2019-01-12] MEDS ORDERED: Heparin 5000 units/ml inj SUBQ SCH (21:00)
[2019-01-12] MEDS: Solu-MEDROL 40mg Inj IVP SCH (21:05)
[2019-01-12] MEDS: Eliquis 5mg tablet ORAL SCH (21:05)
[2019-01-12] MEDS ORDERED: Versed 50mg/D5W 100ml 100 ML IVPB PRN (21:15)
[2019-01-13] VITALS: BP 100/61
[2019-01-13] MEDS: Piperacillin/Tazobactam 3.375 GM in NS 110 ML IVPB SCH ×3 (01:47→17:33)
[2019-01-13 04:00] VITALS: BP 117/79
--- NOTE | 2019-01-13 07:25 | NUR ---
NURSE NOTES: Received report from Jamie JUAREZ. Pt in bed asleep but arousable to verbal stimuli. No c/o pain. No signs of distress noted. Bed in lowest position and locked. Noted triple lumen IV in right jugular vein intact and asymptomatic w/ NS KTO. F/C intact and patent with yellow colored urine noted. On room air. 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 Observed good contact isolation of VRE. Will continue to plan of care.
--- NOTE | 2019-01-13 07:30 | NUR ---
HAND-OFF: Report given to ANN Yeboah. Pt is Sleeping on the bed and no sign of acute distress noted. Pt has episode of A-Fib with HR 45-55 when pt was sleeping. But Pt's V/S was stable and no symptomatic. Left message to Dr. Estrada.
[2019-01-13 08:00] VITALS: BP 138/79
--- NOTE | 2019-01-13 08:23 | General Progress Note ---
Assessment/Plan Problem List: (1) Diabetes mellitus ICD Codes: E11.9 - Type 2 diabetes mellitus without complications SNOMED: 86250412 (2) Respiratory distress ICD Codes: R06.03 - Acute respiratory distress SNOMED: 202110251 (3) Heroin abuse ICD Codes: F11.10 - Heroin abuse SNOMED: 734384665 (4) CHF (congestive heart failure) ICD Codes: I50.9 - Heart failure, unspecified SNOMED: 85688277 (5) Respiratory failure ICD Codes: J96.90 - Respiratory failure, unspecified, unspecified whether with hypoxia or hypercapnia SNOMED: 453049105 Qualifiers: Qualified Codes: J96.01 - Acute respiratory failure with hypoxia; J96.02 - Acute respiratory failure with hypercapnia (6) Pneumonia involving right lung ICD Codes: J18.9 - Pneumonia, unspecified organism SNOMED: 039808074 Qualifiers: Qualified Codes: J18.9 - Pneumonia, unspecified organism (7) COPD (chronic obstructive pulmonary disease) ICD Codes: J44.9 - Chronic obstructive pulmonary disease, unspecified SNOMED: 59363467 Qualifiers: Qualified Codes: J44.9 - Chronic obstructive pulmonary disease, unspecified Status: stable, progressing Assessment/Plan: cont current rx iv abx per id iv steroids- wean as able resp rx monitor labs prn anxiolytics dvt/stress ulcer prophylaxis Subjective Constitutional: Reports: malaise, weakness HEENT: Reports: no symptoms Cardiovascular: Reports: no symptoms Respiratory: Reports: cough, shortness of breath Gastrointestinal/Abdominal: Reports: no symptoms Genitourinary: Reports: no symptoms Neurologic/Psychiatric: Reports: no symptoms Endocrine: Reports: no symptoms Hematologic/Lymphatic: Reports: anemia Allergies: Coded Allergies: No Known Allergies (Unverified , 10/17/18) All Systems: reviewed and negative except above Subjective no complaints. denies sob.denies pain. no fever or chills Objective Last 24 Hour Vital Signs Date Time Temp Pulse Resp B/P (MAP) Pulse Ox O2 Delivery O2 Flow Rate FiO2 01/13/19 08:00 98.9 67 18 138/79 (98) 100 01/13/19 04:40 48 01/13/19 04:00 97.6 60 20 117/79 (92) 100 01/13/19 00:00 76 01/13/19 00:00 98.2 79 20 100/61 (74) 98 01/12/19 21:00 Nasal Cannula 2.0 01/12/19 20:12 Nasal Cannula 2.0 28 01/12/19 20:12 79 18 Nasal Cannula 2.0 28 01/12/19 20:12 98 Nasal Cannula 2.0 28 01/12/19 20:00 75 01/12/19 20:00 98.5 79 20 121/65 (83) 99 01/12/19 18:17 87 121/81 01/12/19 17:24 94 124/82 01/12/19 16:55 170 112/66 01/12/19 16:46 170 112/66 01/12/19 16:44 170 01/12/19 16:00 97.8 85 20 110/65 (80) 96 01/12/19 16:00 120 01/12/19 13:15 Nasal Cannula 2.0 01/12/19 13:14 98.0 77 18 127/64 (85) 99 01/12/19 13:00 102 19 148/82 (104) 96 01/12/19 12:00 98.6 94 19 137/80 (99) 96 01/12/19 12:00 94 01/12/19 12:00 Nasal Cannula 4.0 01/12/19 11:00 93 19 156/89 (111) 96 01/12/19 10:00 74 19 139/82 (101) 96 01/12/19 09:04 82 146/83 01/12/19 09:00 80 19 135/81 (99) 96 Intake and Output 01/12/19 01/13/19 19:00 07:00 Intake Total 227.5 ml 220.0 ml Output Total 1000 ml 300 ml Balance -772.5 ml -80.0 ml Intake Oral 200 ml IV Total 27.5 ml 220.0 ml Output Urine Total 1000 ml 300 ml # Bowel Movements 7 Height (Feet): 5 Height (Inches): 1.00 Weight (Pounds): 116 Objective General Appearance: WD/WN, alert Neck: supple Cardiovascular: normal peripheral pulses, normal rate, regular rhythm Respiratory/Chest: chest wall non-tender, lungs clear, normal breath sounds Abdomen: normal bowel sounds, non tender, soft, no organomegaly Edema: no edema noted Arm (L), no edema noted Arm (R), no edema noted Leg (L), no edema noted Leg (R), no edema noted Pedal (L), no edema noted Pedal (R), no edema noted Generalized Varun Stewart MD January 13, 2019 08:23
[2019-01-13] MEDS: Eliquis 5mg tablet ORAL SCH ×2 (08:52→17:33)
[2019-01-13] MEDS: Metoprolol Tartrate 50mg tab ORAL SCH ×2 (08:52→21:47)
[2019-01-13] MEDS: Digoxin 0.125mg tab ORAL SCH (08:53)
[2019-01-13] MEDS: Solu-MEDROL 40mg Inj IVP SCH ×2 (08:53→21:47)
[2019-01-13] MEDS ORDERED: Digoxin 0.5mg/2ml Inj IVP SCH (09:00)
--- NOTE | 2019-01-13 09:28 | Pulmonology Progress Note ---
Assessment/Plan Assessment/Plan Pulmonary Progress Note Assessment/Plan IMPRESSION: 1. Accelerated hypertension. 2. Acute on chronic diastolic congestive heart failure. 3. Status post respiratory failure. Now extubated 4. Pseudomonas pneumonia. 5. Severe pulmonary hypertension. 6. History of heroin addiction and now methadone dependence. 7. Peripheral neuropathy. DISCUSSION: Transfer to tele Keep intake/output negative Continue breathing treatments and broad spectrum antibiotics, I will follow carefully. Abhijit Morris M.D. Subjective Interval Events: Extubated 2 days ago; on 2L/min o2 Constitutional: Reports: no symptoms HEENT: Repors: no symptoms Respiratory: Reports: dry cough, shortness of breath Cardiovascular: Reports: no symptoms Gastrointestinal/Abdominal: Reports: no symptoms Genitourinary: Reports: no symptoms Neurologic: Reports: no symptoms Allergies: Coded Allergies: No Known Allergies (Unverified , 10/17/18) Objective Vital Signs Noted General Appearance: no acute distress HEENT: normocephalic Respiratory/Chest: chest wall non-tender, lungs clear Cardiovascular: normal peripheral pulses, normal rate Abdomen: normal bowel sounds Laboratory Tests Noted 01/12/19 04:00: White Blood Count 5.6, Red Blood Count 3.65L, Hemoglobin 10.6L, Hematocrit 32.6L , Mean Corpuscular Volume 89, Mean Corpuscular Hemoglobin 28.9, Mean Corpuscular Hemoglobin Concent 32.3, Red Cell Distribution Width 16.1H, Platelet Count 216, Mean Platelet Volume 6.4L, Neutrophils (%) (Auto) 83.3H, Lymphocytes (%) (Auto) 6.0L, Monocytes (%) (Auto) 9.6, Eosinophils (%) (Auto) 0.0, Basophils (%) (Auto) 1.1, Sodium Level 140, Potassium Level 3.4L, Chloride Level 100, Carbon Dioxide Level 38H, Anion Gap 3L, Blood Urea Nitrogen 24H, Creatinine 0.8, Estimat Glomerular Filtration Rate , Glucose Level 122H, Calcium Level 8.6, Magnesium Level 1.8 Current Medications Medications (Trade) Dose Ordered Sig/Aimee Route PRN Reason Start Time Stop Time Status Last Admin Dose Admin Albuterol/ Ipratropium (Albuterol/ Ipratropium) 3 ml Q4H PRN HHN Shortness of Breath 01/07/19 21:09 01/12/19 21:08 Chlorhexidine Gluconate (Mayra-Hex 2%) 1 applic DAILY@2000 TOPIC 01/08/19 20:00 02/07/19 19:59 01/11/19 20:44 Diltiazem HCl (Cardizem CD) 180 mg BID ORAL 01/12/19 09:00 02/11/19 08:59 Haloperidol Lactate 5 mg/ Dextrose 56 ml @ 224 mls/hr EVERY 6 HOURS PRN IVPB Agitation 01/09/19 16:30 02/08/19 16:29 Heparin Sodium (Porcine) (Heparin 5000 units/ml) 5,000 units EVERY 12 HOURS SUBQ 01/07/19 21:00 02/06/19 20:59 01/11/19 20:48 Lorazepam (Ativan 2mg/ml 1ml) 1 mg Q4H PRN IV For Anxiety 01/07/19 21:09 01/14/19 21:08 Methadone HCl (Methadone HCl) 20 mg DAILYPRN PRN ORAL For Pain 01/11/19 21:07 01/18/19 21:06 Methylprednisolone Sodium Succinate (Solu-MEDROL) 40 mg EVERY 12 HOURS IVP 01/12/19 09:00 02/11/19 08:59 Midazolam HCl 100 ml @ 0 mls/hr Q24H PRN IVPB Agitation 01/07/19 21:09 01/14/19 21:08 01/08/19 22:03 Pantoprazole (Protonix) 40 mg DAILY ORAL 01/12/19 09:00 02/11/19 08:59 Piperacillin Sod/ Tazobactam Sod 3.375 gm/Sodium Chloride 110 ml @ 27.5 mls/hr Q8H IVPB 01/08/19 02:00 01/15/19 01:59 01/12/19 01:36 Subjective ROS Limited/Unobtainable: No Allergies: Coded Allergies: No Known Allergies (Unverified , 10/17/18) Objective Last 24 Hour Vital Signs Date Time Temp Pulse Resp B/P (MAP) Pulse Ox O2 Delivery O2 Flow Rate FiO2 01/13/19 09:00 Nasal Cannula 2.0 01/13/19 08:53 122 01/13/19 08:52 122 138/79 01/13/19 08:00 98.9 67 18 138/79 (98) 100 01/13/19 04:40 48 01/13/19 04:00 97.6 60 20 117/79 (92) 100 01/13/19 00:00 76 01/13/19 00:00 98.2 79 20 100/61 (74) 98 01/12/19 21:00 Nasal Cannula 2.0 01/12/19 20:12 Nasal Cannula 2.0 28 01/12/19 20:12 79 18 Nasal Cannula 2.0 28 01/12/19 20:12 98 Nasal Cannula 2.0 28 01/12/19 20:00 75 01/12/19 20:00 98.5 79 20 121/65 (83) 99 01/12/19 18:17 87 121/81 01/12/19 17:24 94 124/82 01/12/19 16:55 170 112/66 01/12/19 16:46 170 112/66 01/12/19 16:44 170 01/12/19 16:00 97.8 85 20 110/65 (80) 96 01/12/19 16:00 120 01/12/19 13:15 Nasal Cannula 2.0 01/12/19 13:14 98.0 77 18 127/64 (85) 99 01/12/19 13:00 102 19 148/82 (104) 96 01/12/19 12:00 98.6 94 19 137/80 (99) 96 01/12/19 12:00 94 01/12/19 12:00 Nasal Cannula 4.0 01/12/19 11:00 93 19 156/89 (111) 96 01/12/19 10:00 74 19 139/82 (101) 96 Intake and Output 01/12/19 01/13/19 19:00 07:00 Intake Total 227.5 ml 220.0 ml Output Total 1000 ml 300 ml Balance -772.5 ml -80.0 ml Intake Oral 200 ml IV Total 27.5 ml 220.0 ml Output Urine Total 1000 ml 300 ml # Bowel Movements 7 Current Medications Medications (Trade) Dose Ordered Sig/Aimee Route PRN Reason Start Time Stop Time Status Last Admin Dose Admin Apixaban (Eliquis) 5 mg BID ORAL 5/10/19 20:15 02/11/19 20:14 01/13/19 08:52 Chlorhexidine Gluconate (Mayra-Hex 2%) 1 applic DAILY@2000 TOPIC 01/12/19 20:00 02/07/19 19:59 01/12/19 20:09 Digoxin (Lanoxin) 0.125 mg DAILY ORAL 01/13/19 09:00 02/12/19 08:59 01/13/19 08:53 Haloperidol Lactate 5 mg/ Dextrose 56 ml @ 224 mls/hr Q6H PRN IVPB Agitation 01/12/19 18:00 02/11/19 17:59 Lorazepam (Ativan 2mg/ml 1ml) 1 mg Q4H PRN IV For Anxiety 01/12/19 13:30 01/14/19 13:29 01/12/19 16:46 Methadone HCl (Methadone HCl) 20 mg DAILYPRN PRN ORAL For Pain 01/12/19 13:30 01/18/19 13:29 Methylprednisolone Sodium Succinate (Solu-MEDROL) 40 mg EVERY 12 HOURS IVP 01/12/19 21:00 02/11/19 08:59 01/13/19 08:53 Metoprolol Tartrate (Lopressor) 50 mg Q12HR ORAL 01/13/19 09:00 02/12/19 08:59 01/13/19 08:52 Pantoprazole (Protonix) 40 mg DAILY ORAL 01/13/19 09:00 02/11/19 08:59 01/13/19 08:52 Piperacillin Sod/ Tazobactam Sod 3.375 gm/Sodium Chloride 110 ml @ 27.5 mls/hr Q8H IVPB 01/12/19 18:00 01/15/19 01:59 01/13/19 09:01 Justus Geiger MD January 13, 2019 09:28
--- NOTE | 2019-01-13 09:52 | NUR ---
NURSE NOTES: Dr. Tariq called back and reported current sinus rhythm and the episode of bradycardia last night. Continue the current meds with metoprolol and Digoxin ordered and read back. Addendum: 01/13/19 at 1219 by Sravan Yeboah RN Dr. Tariq called back and reported current heart rate with 65/min and the episode of a-fib with rapid heart late last night. Continue the current meds with metoprolol and Digoxin ordered and read back.
--- NOTE | 2019-01-13 10:11 | Infectious Diseases Prog Note ---
Assessment/Plan Assessment/Plan antibiotics ; zosyn A 1. pseudomonas pneumonia 2. leucocytosis resolved 3. seizures 4. CHF 5. rectal VRE colonization P 1. continue zosyn 3 more days 2. will follow up cultures Subjective Constitutional: Denies: fever, chills Respiratory: Reports: dry cough - decreasing; Denies: shortness of breath Gastrointestinal/Abdominal: Denies: nausea, vomiting, diarrhea Musculoskeletal: Denies: pain Allergies: Coded Allergies: No Known Allergies (Unverified , 10/17/18) Objective Vital Signs Last 24 Hour Vital Signs Date Time Temp Pulse Resp B/P (MAP) Pulse Ox O2 Delivery O2 Flow Rate FiO2 01/13/19 09:00 Nasal Cannula 2.0 01/13/19 08:53 122 01/13/19 08:52 122 138/79 01/13/19 08:00 62 01/13/19 08:00 98.9 67 18 138/79 (98) 100 01/13/19 04:40 48 01/13/19 04:00 97.6 60 20 117/79 (92) 100 01/13/19 00:00 76 01/13/19 00:00 98.2 79 20 100/61 (74) 98 01/12/19 21:00 Nasal Cannula 2.0 01/12/19 20:12 Nasal Cannula 2.0 28 01/12/19 20:12 79 18 Nasal Cannula 2.0 28 01/12/19 20:12 98 Nasal Cannula 2.0 28 01/12/19 20:00 75 01/12/19 20:00 98.5 79 20 121/65 (83) 99 01/12/19 18:17 87 121/81 01/12/19 17:24 94 124/82 01/12/19 16:55 170 112/66 01/12/19 16:46 170 112/66 01/12/19 16:44 170 01/12/19 16:00 97.8 85 20 110/65 (80) 96 01/12/19 16:00 120 01/12/19 13:15 Nasal Cannula 2.0 01/12/19 13:14 98.0 77 18 127/64 (85) 99 01/12/19 13:00 102 19 148/82 (104) 96 01/12/19 12:00 98.6 94 19 137/80 (99) 96 01/12/19 12:00 94 01/12/19 12:00 Nasal Cannula 4.0 01/12/19 11:00 93 19 156/89 (111) 96 Height (Feet): 5 Height (Inches): 1.00 Weight (Pounds): 116 Respiratory/Chest: lungs clear Cardiovascular: normal rate, regular rhythm, no gallop/murmur Abdomen: soft, non tender Extremities: no edema, other - right subclavian catheter Current Medications Medications (Trade) Dose Ordered Sig/Aimee Route PRN Reason Start Time Stop Time Status Last Admin Dose Admin Apixaban (Eliquis) 5 mg BID ORAL 01/12/19 20:15 02/11/19 20:14 01/13/19 08:52 Chlorhexidine Gluconate (Mayra-Hex 2%) 1 applic DAILY@2000 TOPIC 01/12/19 20:00 02/07/19 19:59 01/12/19 20:09 Digoxin (Lanoxin) 0.125 mg DAILY ORAL 01/13/19 09:00 02/12/19 08:59 01/13/19 08:53 Haloperidol Lactate 5 mg/ Dextrose 56 ml @ 224 mls/hr Q6H PRN IVPB Agitation 01/12/19 18:00 02/11/19 17:59 Lorazepam (Ativan 2mg/ml 1ml) 1 mg Q4H PRN IV For Anxiety 01/12/19 13:30 01/14/19 13:29 01/12/19 16:46 Methadone HCl (Methadone HCl) 20 mg DAILYPRN PRN ORAL For Pain 01/12/19 13:30 01/18/19 13:29 Methylprednisolone Sodium Succinate (Solu-MEDROL) 40 mg EVERY 12 HOURS IVP 01/12/19 21:00 02/11/19 08:59 01/13/19 08:53 Metoprolol Tartrate (Lopressor) 50 mg Q12HR ORAL 01/13/19 09:00 02/12/19 08:59 01/13/19 08:52 Pantoprazole (Protonix) 40 mg DAILY ORAL 01/13/19 09:00 02/11/19 08:59 01/13/19 08:52 Piperacillin Sod/ Tazobactam Sod 3.375 gm/Sodium Chloride 110 ml @ 27.5 mls/hr Q8H IVPB 01/12/19 18:00 01/15/19 01:59 01/13/19 09:01 Jessy Zabala MD January 13, 2019 10:11
[2019-01-13] MEDS: D5NS 1,000 ML IV SCH (11:08)
[2019-01-13 12:00] VITALS: BP 107/59
[2019-01-13 12:02] LABS: ANION GAP 2 mmol/L (5-15); BLOOD UREA NITROGEN 27 mg/dL (7-18); CALCIUM 8.3 MG/DL (8.5-10.1); CARBON DIOXIDE 38 MMOL/L (21-32); CHLORIDE 102 MMOL/L (98-107); CREATININE 0.8 MG/DL (0.55-1.30); SODIUM 142 MMOL/L (136-145)
--- NOTE | 2019-01-13 15:47 | Cardiology Progress Note ---
Assessment/Plan Assessment/Plan 1. New onset atrial fibrillation, s/p metoprolol and digoxin IV, continue with digoxin 0.125mg daily and metoprolol 50mg bid. Start DOAC. 2. Accelerated hypertension. 3. Acute on chronic diastolic congestive heart failure, LVEF at 60%. 4. Status post respiratory failure. 5. Pseudomonas pneumonia. 6. Severe pulmonary hypertension. 7. History of heroin addiction and now methadone dependence. 8. Peripheral neuropathy. Subjective Subjective Slow ventricular response with atrial fibrillation this morning as low as 40s, asymptomatic. Atrial fibrillation with controlled ventricular response at 62. Objective Last 24 Hour Vital Signs Date Time Temp Pulse Resp B/P (MAP) Pulse Ox O2 Delivery O2 Flow Rate FiO2 01/13/19 12:00 55 01/13/19 12:00 98.1 75 18 107/59 (75) 100 01/13/19 09:00 Nasal Cannula 2.0 01/13/19 08:53 122 01/13/19 08:52 122 138/79 01/13/19 08:00 62 01/13/19 08:00 98.9 67 18 138/79 (98) 100 01/13/19 04:40 48 01/13/19 04:00 97.6 60 20 117/79 (92) 100 01/13/19 00:00 76 01/13/19 00:00 98.2 79 20 100/61 (74) 98 01/12/19 21:00 Nasal Cannula 2.0 01/12/19 20:12 Nasal Cannula 2.0 28 01/12/19 20:12 79 18 Nasal Cannula 2.0 28 01/12/19 20:12 98 Nasal Cannula 2.0 28 01/12/19 20:00 75 01/12/19 20:00 98.5 79 20 121/65 (83) 99 01/12/19 18:17 87 121/81 01/12/19 17:24 94 124/82 01/12/19 16:55 170 112/66 01/12/19 16:46 170 112/66 01/12/19 16:44 170 01/12/19 16:00 97.8 85 20 110/65 (80) 96 01/12/19 16:00 120 Intake and Output 01/12/19 01/13/19 19:00 07:00 Intake Total 227.5 ml 220.0 ml Output Total 1000 ml 300 ml Balance -772.5 ml -80.0 ml Intake Oral 200 ml IV Total 27.5 ml 220.0 ml Output Urine Total 1000 ml 300 ml # Bowel Movements 7 Laboratory Tests Test 01/13/19 11:30 Sodium Level 142 MMOL/L (136-145) Potassium Level 3.0 MMOL/L (3.5-5.1) L Chloride Level 102 MMOL/L (98-107) Carbon Dioxide Level 38 MMOL/L (21-32) H Anion Gap 2 mmol/L (5-15) L Blood Urea Nitrogen 27 mg/dL (7-18) H Creatinine 0.8 MG/DL (0.55-1.30) Estimat Glomerular Filtration Rate mL/min (>60) Glucose Level 212 MG/DL (74-106) H Calcium Level 8.3 MG/DL (8.5-10.1) L Objective HEENT: Normocephalic, atraumatic, PERRLA, EOMI. NECK: No JVD, no carotid bruit. LUNGS: Diminished breath sounds. Scattered rhonchi. Thin secretions. CARDIAC: Irregularly irregular rhythm, Normal S1, S2. ABDOMEN: Soft, non-tender, non-distended, + BS. EXTREMITIES: There is right lower extremity wound and 1+ edema of the right upper extremity. Distal pulses are palpable. Mike Tariq MD January 13, 2019 15:47
[2019-01-13 16:00] VITALS: BP 125/72
--- NOTE | 2019-01-13 17:30 | NUR ---
NURSE NOTES: Dr. Martinez called for episodes of having loose stools x3. No c/o pain. Stool test for c-diff ordered
[2019-01-13] MEDS ORDERED: NS 275ml ONE (18:13)
--- NOTE | 2019-01-13 19:20 | NUR ---
NURSE NOTES: Dr. Martinez called for episodes of having loose stools x5 today. Vancomycin 125mg po qid for 10days ordered and order read back. But doctor does not want to order any anti-diarrhea meds at this time.
--- NOTE | 2019-01-13 19:30 | NUR ---
HAND-OFF: Report given to Ragini JUAREZ. Pt remains stable.
--- NOTE | 2019-01-13 19:46 | NUR ---
NURSE NOTES: Received patient from Min RN. Patient awake, alert, oriented x3, calm and cooperative. Bed in low position, locked, alarm on. Call light within reach.
[2019-01-13 20:00] VITALS: BP 124/76
[2019-01-13] MEDS: Dyna-Hex 2% Top Sol 2oz TOPIC SCH (21:46)
[2019-01-13] MEDS: Vancomycin oral 125mg/2.5ml ORAL SCH (21:50)
--- NOTE | 2019-01-13 23:52 | NUR ---
NURSE NOTES: Called Dr. Stewart regarding patient's complaint of generalized itching and request for medication. Awaiting callback.
[2019-01-14] VITALS: BP 142/103
[2019-01-14] MEDS: Piperacillin/Tazobactam 3.375 GM in NS 110 ML IVPB SCH ×3 (01:08→17:36)
[2019-01-14 04:00] VITALS: BP 141/78
[2019-01-14] MEDS: LORazepam Inj 2mg/ml 1ml IV PRN (04:36)
--- NOTE | 2019-01-14 04:36 | NUR ---
NURSE NOTES: Patient requested something to help relax him. Ativan 1mg IV administered.
[2019-01-14 05:15] LABS: HEMATOCRIT 28.6 % (42.0-52.0); HEMOGLOBIN 9.2 G/DL (14.2-18.0); MEAN CORPUSCULAR VOLUME 90 FL (80-99); PLATELET COUNT 175 K/UL (150-450); RED BLOOD COUNT 3.19 M/UL (4.70-6.10); RED CELL DISTRIBUTION WIDTH 16.6 % (11.6-14.8); WHITE BLOOD COUNT 10.1 K/UL (4.8-10.8)
[2019-01-14 05:31] LABS: ANION GAP -2 mmol/L (5-15); BLOOD UREA NITROGEN 18 mg/dL (7-18); CALCIUM 8.5 MG/DL (8.5-10.1); CARBON DIOXIDE 39 MMOL/L (21-32); CHLORIDE 105 MMOL/L (98-107); CREATININE 0.7 MG/DL (0.55-1.30); SODIUM 142 MMOL/L (136-145)
[2019-01-14] MEDS: D5NS 1,000 ML IV SCH (06:07)
--- NOTE | 2019-01-14 07:22 | NUR ---
HAND-OFF: Report given to Kiko JUAREZ. Patient asleep in bed, on 2L NC, no signs of respiratory distress. Kimball catheter intact. Bed in low position, air mattress on, bed alarm on, bed locked, call light within reach. Patient in stable condition, plan of care endorsed.
--- NOTE | 2019-01-14 07:54 | NUR ---
NURSE NOTES: Received report from ANN Adan. Patient in bed resting, no active s/s cardiac, respiratory distress noticed at this time. Patient on 2L oxygen via NC. Kimball Catheter draining well to gravity, central line on right IJ, asymptomatic, patent, intact, IV fluid running at prescribed rate. Endorsed MD aware of A.fib. Patient on P200 mattress, Bed in lowest position, side rails upx3, call light within reach, bed alarm on. Will continue to monitor.
[2019-01-14 08:00] VITALS: BP 128/71
[2019-01-14] MEDS: Eliquis 5mg tablet ORAL SCH ×2 (09:00→17:36)
[2019-01-14] MEDS: Solu-MEDROL 40mg Inj IVP SCH ×2 (09:00→20:33)
[2019-01-14] MEDS: Vancomycin oral 125mg/2.5ml ORAL SCH ×4 (09:00→20:33)
[2019-01-14] MEDS: Digoxin 0.125mg tab ORAL SCH (09:01)
[2019-01-14] MEDS: Metoprolol Tartrate 50mg tab ORAL SCH ×2 (09:01→20:34)
--- NOTE | 2019-01-14 09:40 | Pulmonology Progress Note ---
Assessment/Plan Assessment/Plan Pulmonary Progress Note Assessment/Plan IMPRESSION: 1. Accelerated hypertension. 2. Acute on chronic diastolic congestive heart failure. 3. Status post respiratory failure. Now extubated 4. Pseudomonas pneumonia. 5. Severe pulmonary hypertension. 6. History of heroin addiction and now methadone dependence. 7. Peripheral neuropathy. On IVF, no new complaints DISCUSSION: Transfer to tele Keep intake/output negative Continue breathing treatments and broad spectrum antibiotics, I will follow carefully. Abhijit Morris M.D. Subjective Interval Events: Extubated 2 days ago; on 2L/min o2 Constitutional: Reports: no symptoms HEENT: Repors: no symptoms Respiratory: Reports: dry cough, shortness of breath Cardiovascular: Reports: no symptoms Gastrointestinal/Abdominal: Reports: no symptoms Genitourinary: Reports: no symptoms Neurologic: Reports: no symptoms Allergies: Coded Allergies: No Known Allergies (Unverified , 10/17/18) Objective Vital Signs Noted General Appearance: no acute distress HEENT: normocephalic Respiratory/Chest: chest wall non-tender, lungs clear Cardiovascular: normal peripheral pulses, normal rate Abdomen: normal bowel sounds Laboratory Tests Noted 01/12/19 04:00: White Blood Count 5.6, Red Blood Count 3.65L, Hemoglobin 10.6L, Hematocrit 32.6L , Mean Corpuscular Volume 89, Mean Corpuscular Hemoglobin 28.9, Mean Corpuscular Hemoglobin Concent 32.3, Red Cell Distribution Width 16.1H, Platelet Count 216, Mean Platelet Volume 6.4L, Neutrophils (%) (Auto) 83.3H, Lymphocytes (%) (Auto) 6.0L, Monocytes (%) (Auto) 9.6, Eosinophils (%) (Auto) 0.0, Basophils (%) (Auto) 1.1, Sodium Level 140, Potassium Level 3.4L, Chloride Level 100, Carbon Dioxide Level 38H, Anion Gap 3L, Blood Urea Nitrogen 24H, Creatinine 0.8, Estimat Glomerular Filtration Rate , Glucose Level 122H, Calcium Level 8.6, Magnesium Level 1.8 Current Medications Medications (Trade) Dose Ordered Sig/Aimee Route PRN Reason Start Time Stop Time Status Last Admin Dose Admin Albuterol/ Ipratropium (Albuterol/ Ipratropium) 3 ml Q4H PRN HHN Shortness of Breath 01/07/19 21:09 01/12/19 21:08 Chlorhexidine Gluconate (Mayra-Hex 2%) 1 applic DAILY@2000 TOPIC 01/08/19 20:00 02/07/19 19:59 01/11/19 20:44 Diltiazem HCl (Cardizem CD) 180 mg BID ORAL 01/12/19 09:00 02/11/19 08:59 Haloperidol Lactate 5 mg/ Dextrose 56 ml @ 224 mls/hr EVERY 6 HOURS PRN IVPB Agitation 01/09/19 16:30 02/08/19 16:29 Heparin Sodium (Porcine) (Heparin 5000 units/ml) 5,000 units EVERY 12 HOURS SUBQ 01/07/19 21:00 02/06/19 20:59 01/11/19 20:48 Lorazepam (Ativan 2mg/ml 1ml) 1 mg Q4H PRN IV For Anxiety 01/07/19 21:09 01/14/19 21:08 Methadone HCl (Methadone HCl) 20 mg DAILYPRN PRN ORAL For Pain 01/11/19 21:07 01/18/19 21:06 Methylprednisolone Sodium Succinate (Solu-MEDROL) 40 mg EVERY 12 HOURS IVP 01/12/19 09:00 02/11/19 08:59 Midazolam HCl 100 ml @ 0 mls/hr Q24H PRN IVPB Agitation 01/07/19 21:09 01/14/19 21:08 01/08/19 22:03 Pantoprazole (Protonix) 40 mg DAILY ORAL 01/12/19 09:00 02/11/19 08:59 Piperacillin Sod/ Tazobactam Sod 3.375 gm/Sodium Chloride 110 ml @ 27.5 mls/hr Q8H IVPB 01/08/19 02:00 01/15/19 01:59 01/12/19 01:36 Subjective ROS Limited/Unobtainable: No Allergies: Coded Allergies: No Known Allergies (Unverified , 10/17/18) Objective Last 24 Hour Vital Signs Date Time Temp Pulse Resp B/P (MAP) Pulse Ox O2 Delivery O2 Flow Rate FiO2 5/12/19 09:01 72 01/14/19 09:01 72 128/71 01/14/19 04:00 98.5 54 19 141/78 (99) 97 01/14/19 03:50 54 01/14/19 00:00 97.0 67 20 142/103 (116) 95 01/13/19 23:55 69 01/13/19 21:47 95 124/76 01/13/19 21:00 Nasal Cannula 3.0 01/13/19 20:06 99 Nasal Cannula 2.0 28 01/13/19 20:06 77 18 Nasal Cannula 2.0 28 01/13/19 20:05 Nasal Cannula 2.0 28 01/13/19 20:00 85 01/13/19 20:00 98.9 95 20 124/76 (92) 98 01/13/19 16:00 98.9 73 18 125/72 (89) 99 01/13/19 16:00 62 01/13/19 12:00 55 01/13/19 12:00 98.1 75 18 107/59 (75) 100 Intake and Output 01/13/19 01/14/19 19:00 07:00 Intake Total 860.0 ml 950.0 ml Output Total 400 ml 525 ml Balance 460.0 ml 425.0 ml Intake Oral 250 ml 240 ml IV Total 610.0 ml 710.0 ml Output Urine Total 400 ml 525 ml # Bowel Movements 5 1 Microbiology Date/Time Source Procedure Growth Status 01/13/19 16:00 Stool Clostridium difficile Toxin Assay - Final Complete Laboratory Tests 01/13/19 11:30: Sodium Level 142, Potassium Level 3.0L, Chloride Level 102, Carbon Dioxide Level 38H, Anion Gap 2L, Blood Urea Nitrogen 27H, Creatinine 0.8, Estimat Glomerular Filtration Rate , Glucose Level 212H, Calcium Level 8.3L 01/14/19 04:45: Sodium Level 142, Potassium Level 4.0, Chloride Level 105, Carbon Dioxide Level 39H, Anion Gap -2L, Blood Urea Nitrogen 18, Creatinine 0.7, Estimat Glomerular Filtration Rate , Glucose Level 154H, Calcium Level 8.5, White Blood Count 10.1 , Red Blood Count 3.19L, Hemoglobin 9.2L, Hematocrit 28.6L, Mean Corpuscular Volume 90, Mean Corpuscular Hemoglobin 29.0, Mean Corpuscular Hemoglobin Concent 32.3, Red Cell Distribution Width 16.6H, Platelet Count 175, Mean Platelet Volume 6.0L, Neutrophils (%) (Auto) , Lymphocytes (%) (Auto) , Monocytes (%) (Auto) , Eosinophils (%) (Auto) , Basophils (%) (Auto) , Differential Total Cells Counted 100, Neutrophils % (Manual) 96H, Lymphocytes % (Manual) 3L, Monocytes % (Manual) 1, Eosinophils % (Manual) 0, Basophils % ( Manual) 0, Band Neutrophils 0, Platelet Estimate Adequate, Platelet Morphology Normal, Hypochromasia 2+, Anisocytosis 1+ Current Medications Medications (Trade) Dose Ordered Sig/Aimee Route PRN Reason Start Time Stop Time Status Last Admin Dose Admin Apixaban (Eliquis) 5 mg BID ORAL 01/12/19 20:15 02/11/19 20:14 01/13/19 17:33 Chlorhexidine Gluconate (Mayra-Hex 2%) 1 applic DAILY@2000 TOPIC 01/12/19 20:00 02/07/19 19:59 01/13/19 21:46 Dextrose/Sodium Chloride 1,000 ml @ 50 mls/hr Q20H IV 01/13/19 11:15 02/12/19 11:14 01/14/19 06:07 Digoxin (Lanoxin) 0.125 mg DAILY ORAL 01/13/19 09:00 02/12/19 08:59 01/14/19 09:01 Haloperidol Lactate 5 mg/ Dextrose 56 ml @ 224 mls/hr Q6H PRN IVPB Agitation 01/12/19 18:00 02/11/19 17:59 Lorazepam (Ativan 2mg/ml 1ml) 1 mg Q4H PRN IV For Anxiety 01/12/19 13:30 01/14/19 13:29 01/14/19 04:36 Methadone HCl (Methadone HCl) 20 mg DAILYPRN PRN ORAL For Pain 01/12/19 13:30 01/18/19 13:29 01/13/19 21:49 Methylprednisolone Sodium Succinate (Solu-MEDROL) 40 mg EVERY 12 HOURS IVP 01/12/19 21:00 02/11/19 08:59 01/14/19 09:00 Metoprolol Tartrate (Lopressor) 50 mg Q12HR ORAL 01/13/19 09:00 02/12/19 08:59 01/14/19 09:01 Pantoprazole (Protonix) 40 mg DAILY ORAL 01/13/19 09:00 02/11/19 08:59 01/14/19 09:00 Piperacillin Sod/ Tazobactam Sod 3.375 gm/Sodium Chloride 110 ml @ 27.5 mls/hr Q8H IVPB 01/13/19 18:00 01/16/19 01:59 01/14/19 01:08 Vancomycin HCl (Firvanq) 125 mg FOUR TIMES A DAY ORAL 01/13/19 21:00 01/23/19 20:59 01/14/19 09:00 Justus Geiger MD January 14, 2019 09:40
--- NOTE | 2019-01-14 09:44 | Infectious Diseases Prog Note ---
Assessment/Plan Assessment/Plan IMPRESSION: Sepsis with fever and leukocytosis. Pseudomonas pneumonia seizure activity, severe COPD, cachexia, anemia, diastolic CHF, pulmonary hypertension. VRE colonization RECOMMENDATION: continue with Zosyn x2 days contact isolation Wound care Subjective ROS Limited/Unobtainable: Yes Allergies: Coded Allergies: No Known Allergies (Unverified , 10/17/18) Objective Vital Signs Last 24 Hour Vital Signs Date Time Temp Pulse Resp B/P (MAP) Pulse Ox O2 Delivery O2 Flow Rate FiO2 01/14/19 09:01 72 01/14/19 09:01 72 128/71 01/14/19 04:00 98.5 54 19 141/78 (99) 97 01/14/19 03:50 54 01/14/19 00:00 97.0 67 20 142/103 (116) 95 01/13/19 23:55 69 01/13/19 21:47 95 124/76 01/13/19 21:00 Nasal Cannula 3.0 01/13/19 20:06 99 Nasal Cannula 2.0 28 01/13/19 20:06 77 18 Nasal Cannula 2.0 28 01/13/19 20:05 Nasal Cannula 2.0 28 01/13/19 20:00 85 01/13/19 20:00 98.9 95 20 124/76 (92) 98 01/13/19 16:00 98.9 73 18 125/72 (89) 99 01/13/19 16:00 62 01/13/19 12:00 55 01/13/19 12:00 98.1 75 18 107/59 (75) 100 Height (Feet): 5 Height (Inches): 1.00 Weight (Pounds): 105 General Appearance: cachetic HEENT: mucous membranes moist Respiratory/Chest: decreased breath sounds Cardiovascular: normal rate, other - RIJ central line Abdomen: soft, non tender Extremities: no edema Skin: other - bruises Neurologic/Psychiatric: other - sleeping Musculoskeletal: atrophy Microbiology Date/Time Source Procedure Growth Status 01/13/19 16:00 Stool Clostridium difficile Toxin Assay - Final Complete Laboratory Tests Test 01/13/19 11:30 01/14/19 04:45 Sodium Level 142 MMOL/L (136-145) 142 MMOL/L (136-145) Potassium Level 3.0 MMOL/L (3.5-5.1) L 4.0 MMOL/L (3.5-5.1) Chloride Level 102 MMOL/L (98-107) 105 MMOL/L (98-107) Carbon Dioxide Level 38 MMOL/L (21-32) H 39 MMOL/L (21-32) H Anion Gap 2 mmol/L (5-15) L -2 mmol/L (5-15) L Blood Urea Nitrogen 27 mg/dL (7-18) H 18 mg/dL (7-18) Creatinine 0.8 MG/DL (0.55-1.30) 0.7 MG/DL (0.55-1.30) Estimat Glomerular Filtration Rate mL/min (>60) mL/min (>60) Glucose Level 212 MG/DL (74-106) H 154 MG/DL (74-106) H Calcium Level 8.3 MG/DL (8.5-10.1) L 8.5 MG/DL (8.5-10.1) White Blood Count 10.1 K/UL (4.8-10.8) Red Blood Count 3.19 M/UL (4.70-6.10) L Hemoglobin 9.2 G/DL (14.2-18.0) L Hematocrit 28.6 % (42.0-52.0) L Mean Corpuscular Volume 90 FL (80-99) Mean Corpuscular Hemoglobin 29.0 PG (27.0-31.0) Mean Corpuscular Hemoglobin Concent 32.3 G/DL (32.0-36.0) Red Cell Distribution Width 16.6 % (11.6-14.8) H Platelet Count 175 K/UL (150-450) Mean Platelet Volume 6.0 FL (6.5-10.1) L Neutrophils (%) (Auto) % (45.0-75.0) Lymphocytes (%) (Auto) % (20.0-45.0) Monocytes (%) (Auto) % (1.0-10.0) Eosinophils (%) (Auto) % (0.0-3.0) Basophils (%) (Auto) % (0.0-2.0) Differential Total Cells Counted 100 Neutrophils % (Manual) 96 % (45-75) H Lymphocytes % (Manual) 3 % (20-45) L Monocytes % (Manual) 1 % (1-10) Eosinophils % (Manual) 0 % (0-3) Basophils % (Manual) 0 % (0-2) Band Neutrophils 0 % (0-8) Platelet Estimate Adequate Platelet Morphology Normal Hypochromasia 2+ Anisocytosis 1+ Current Medications Medications (Trade) Dose Ordered Sig/Aimee Route PRN Reason Start Time Stop Time Status Last Admin Dose Admin Apixaban (Eliquis) 5 mg BID ORAL 01/12/19 20:15 02/11/19 20:14 01/13/19 17:33 Chlorhexidine Gluconate (Mayra-Hex 2%) 1 applic DAILY@2000 TOPIC 01/12/19 20:00 02/07/19 19:59 01/13/19 21:46 Dextrose/Sodium Chloride 1,000 ml @ 50 mls/hr Q20H IV 01/13/19 11:15 02/12/19 11:14 01/14/19 06:07 Digoxin (Lanoxin) 0.125 mg DAILY ORAL 01/13/19 09:00 02/12/19 08:59 01/14/19 09:01 Haloperidol Lactate 5 mg/ Dextrose 56 ml @ 224 mls/hr Q6H PRN IVPB Agitation 01/12/19 18:00 02/11/19 17:59 Lorazepam (Ativan 2mg/ml 1ml) 1 mg Q4H PRN IV For Anxiety 01/12/19 13:30 01/14/19 13:29 01/14/19 04:36 Methadone HCl (Methadone HCl) 20 mg DAILYPRN PRN ORAL For Pain 01/12/19 13:30 01/18/19 13:29 01/13/19 21:49 Methylprednisolone Sodium Succinate (Solu-MEDROL) 40 mg EVERY 12 HOURS IVP 01/12/19 21:00 02/11/19 08:59 01/14/19 09:00 Metoprolol Tartrate (Lopressor) 50 mg Q12HR ORAL 01/13/19 09:00 02/12/19 08:59 01/14/19 09:01 Pantoprazole (Protonix) 40 mg DAILY ORAL 01/13/19 09:00 02/11/19 08:59 01/14/19 09:00 Piperacillin Sod/ Tazobactam Sod 3.375 gm/Sodium Chloride 110 ml @ 27.5 mls/hr Q8H IVPB 01/13/19 18:00 01/16/19 01:59 01/14/19 01:08 Vancomycin HCl (Firvanq) 125 mg FOUR TIMES A DAY ORAL 01/13/19 21:00 01/23/19 20:59 01/14/19 09:00 Jez Espinoza MD January 14, 2019 09:43
--- NOTE | 2019-01-14 10:48 | NUR ---
CASE MANAGEMENT:REVIEW 01/13/19 SI: SEPSIS. ASPIRATION PNA. T 98.9 HR 95 RR 20 B/P 124/76 SATS 98% ON 2L/NC NO LABS TODAY IS: IVF @ 50 mL/HR SOLU MEDROL IV Q12H ELIQUIS PO BID PROTONIX PO QD LANOXIN PO QD LOPRESSOR PO Q12H ZOSYN IV Q8H VANCO PO QID : TELEMETRY STATUS DCP: FROM [facility] 01/14/19 SI: SEPSIS. ASPIRATION PNA. T 97.7 HR 112 RR 18 B/P 128/71 SATS 93% ON 3L/NC BUN 39 CR -2 GLU 154 IS: IVF @ 50 mL/HR SOLU MEDROL IV Q12H ELIQUIS PO BID PROTONIX PO QD LANOXIN PO QD LOPRESSOR PO Q12H ZOSYN IV Q8H VANCO PO QID : TELEMETRY STATUS DCP: FROM [facility]
[2019-01-14 12:00] VITALS: BP 124/81
--- NOTE | 2019-01-14 13:30 | NUR ---
NURSE NOTES: Spoke with pharmacist regarding methadone 20mg PO daily prn for pain. Patient requesting for pain medication. Per pharmacist can administer one dose of methadone since last dose given 15 hours ago, patient alert and orient. Will continue to monitor.
--- NOTE | 2019-01-14 14:30 | NUR ---
NURSE NOTES: Right IJ central line dressing changed, asymptomatic, patent, intact. Will continue to monitor.
[2019-01-14] MEDS ORDERED: D5NS 1000ml IV ONE (15:51)
[2019-01-14 16:00] VITALS: BP 145/88
--- NOTE | 2019-01-14 19:14 | NUR ---
HAND-OFF: Report given to ANN Johnson.
--- NOTE | 2019-01-14 19:15 | NUR ---
NURSE NOTES: Received bedside report from ANN Hoover.Patient stable,no c/o pain,no respiratory distress noted, pt in a bed,A&Ox3,A-Fib on cardiac/vascular sonographer,MD aware,3 L/min via N/C tolerated well,BS active in all quadrants,F/cath for retention draining toward gravity,PICC line on R AJ triple lumen TKO asymptomatic,intact,dressing changed 01/14/19,bed secured in a low safety position,call light within a reach,will continue to monitor and follow POC.
[2019-01-14 20:00] VITALS: BP 143/94
[2019-01-14] MEDS: Dyna-Hex 2% Top Sol 2oz TOPIC SCH (20:33)
[2019-01-15] VITALS: BP 159/104
--- NOTE | 2019-01-15 | Cardiology Progress Note ---
Assessment/Plan Assessment/Plan LATE ENTRY PROGRESS NOTE DOS: January 14, 2019 Time of encounter: 21:46 1. New onset atrial fibrillation, continue metoprolol, digoxin and Eliquis. 2. Accelerated hypertension, stage I. Continue metoprolol. 3. Acute on chronic diastolic congestive heart failure, LVEF at 60%. 4. Status post respiratory failure. 5. Pseudomonas pneumonia. 6. Severe pulmonary hypertension. 7. History of heroin addiction and now methadone dependence. 8. Peripheral neuropathy. Subjective Subjective Atrial fibrillation with controlled ventricular response at 94. Objective Last 24 Hour Vital Signs Date Time Temp Pulse Resp B/P (MAP) Pulse Ox O2 Delivery O2 Flow Rate FiO2 01/14/19 21:00 Nasal Cannula 3.0 01/14/19 20:34 94 143/94 01/14/19 20:00 98.6 94 20 143/94 (110) 92 01/14/19 16:00 98 01/14/19 16:00 97.9 69 20 145/88 (107) 96 01/14/19 12:00 97.9 73 20 124/81 (95) 98 01/14/19 11:53 78 01/14/19 09:01 72 01/14/19 09:01 72 128/71 01/14/19 09:00 Nasal Cannula 3.0 01/14/19 08:00 112 01/14/19 08:00 97.7 72 18 128/71 (90) 93 01/14/19 04:00 98.5 54 19 141/78 (99) 97 01/14/19 03:50 54 Intake and Output 01/14/19 01/15/19 18:59 06:59 Intake Total 700 ml Output Total 500 ml Balance 200 ml Intake Oral 650 ml IV Total 50 ml Output Urine Total 500 ml Laboratory Tests Test 01/14/19 04:45 White Blood Count 10.1 K/UL (4.8-10.8) Red Blood Count 3.19 M/UL (4.70-6.10) L Hemoglobin 9.2 G/DL (14.2-18.0) L Hematocrit 28.6 % (42.0-52.0) L Mean Corpuscular Volume 90 FL (80-99) Mean Corpuscular Hemoglobin 29.0 PG (27.0-31.0) Mean Corpuscular Hemoglobin Concent 32.3 G/DL (32.0-36.0) Red Cell Distribution Width 16.6 % (11.6-14.8) H Platelet Count 175 K/UL (150-450) Mean Platelet Volume 6.0 FL (6.5-10.1) L Neutrophils (%) (Auto) % (45.0-75.0) Lymphocytes (%) (Auto) % (20.0-45.0) Monocytes (%) (Auto) % (1.0-10.0) Eosinophils (%) (Auto) % (0.0-3.0) Basophils (%) (Auto) % (0.0-2.0) Differential Total Cells Counted 100 Neutrophils % (Manual) 96 % (45-75) H Lymphocytes % (Manual) 3 % (20-45) L Monocytes % (Manual) 1 % (1-10) Eosinophils % (Manual) 0 % (0-3) Basophils % (Manual) 0 % (0-2) Band Neutrophils 0 % (0-8) Platelet Estimate Adequate Platelet Morphology Normal Hypochromasia 2+ Anisocytosis 1+ Sodium Level 142 MMOL/L (136-145) Potassium Level 4.0 MMOL/L (3.5-5.1) Chloride Level 105 MMOL/L (98-107) Carbon Dioxide Level 39 MMOL/L (21-32) H Anion Gap -2 mmol/L (5-15) L Blood Urea Nitrogen 18 mg/dL (7-18) Creatinine 0.7 MG/DL (0.55-1.30) Estimat Glomerular Filtration Rate mL/min (>60) Glucose Level 154 MG/DL (74-106) H Calcium Level 8.5 MG/DL (8.5-10.1) Microbiology Date/Time Source Procedure Growth Status 01/13/19 16:00 Stool Clostridium difficile Toxin Assay - Final Complete Objective HEENT: Normocephalic, atraumatic, PERRLA, EOMI. NECK: No JVD, no carotid bruit. LUNGS: Diminished breath sounds. Scattered rhonchi. Thin secretions. CARDIAC: Irregularly irregular rhythm, Normal S1, S2. ABDOMEN: Soft, non-tender, non-distended, + BS. EXTREMITIES: There is right lower extremity wound and 1+ edema of the right upper extremity. Distal pulses are palpable. Mike Tariq MD January 15, 2019 00:00
[2019-01-15] MEDS: Piperacillin/Tazobactam 3.375 GM in NS 110 ML IVPB SCH ×3 (02:56→17:41)
[2019-01-15 04:05] VITALS: BP 144/76
--- NOTE | 2019-01-15 07:05 | NUR ---
HAND-OFF: Report given to ANN Hoover.Patient stable,eating breakfast.
--- NOTE | 2019-01-15 07:10 | NUR ---
NURSE NOTES: Received report from ANN Johnson. Patient in bed resting, eating breakfast, no active s/s cardiac, respiratory distress noticed at this time, denies pain at this time, AOx3. Kimball Catheter draining well to gravity. Patient on 3L oxygen via NC, central line on right IJ, triple lumen. Bed in lowest position, side rails upx3, call light within reach, bed alarm on. Will continue to monitor.
[2019-01-15 08:00] VITALS: BP 128/74
--- NOTE | 2019-01-15 08:05 | General Progress Note ---
Assessment/Plan Problem List: (1) Diabetes mellitus ICD Codes: E11.9 - Type 2 diabetes mellitus without complications SNOMED: 98850528 (2) Respiratory distress ICD Codes: R06.03 - Acute respiratory distress SNOMED: 055247858 (3) Heroin abuse ICD Codes: F11.10 - Heroin abuse SNOMED: 183048131 (4) CHF (congestive heart failure) ICD Codes: I50.9 - Heart failure, unspecified SNOMED: 32905248 (5) Respiratory failure ICD Codes: J96.90 - Respiratory failure, unspecified, unspecified whether with hypoxia or hypercapnia SNOMED: 246025886 Qualifiers: Qualified Codes: J96.01 - Acute respiratory failure with hypoxia; J96.02 - Acute respiratory failure with hypercapnia (6) Pneumonia involving right lung ICD Codes: J18.9 - Pneumonia, unspecified organism SNOMED: 787799173 Qualifiers: Qualified Codes: J18.9 - Pneumonia, unspecified organism (7) COPD (chronic obstructive pulmonary disease) ICD Codes: J44.9 - Chronic obstructive pulmonary disease, unspecified SNOMED: 00232809 Qualifiers: Qualified Codes: J44.9 - Chronic obstructive pulmonary disease, unspecified Status: stable, progressing Assessment/Plan: cont current rx iv abx per id iv steroids- wean as able resp rx monitor abg monitor labs prn anxiolytics dvt/stress ulcer prophylaxis ?dc planning Subjective ROS Limited/Unobtainable: No Constitutional: Reports: malaise, weakness HEENT: Reports: no symptoms Cardiovascular: Reports: no symptoms Respiratory: Reports: no symptoms Gastrointestinal/Abdominal: Reports: no symptoms Genitourinary: Reports: no symptoms Neurologic/Psychiatric: Reports: anxiety Endocrine: Reports: no symptoms Hematologic/Lymphatic: Reports: no symptoms Allergies: Coded Allergies: No Known Allergies (Unverified , 10/17/18) All Systems: reviewed and negative except above Subjective doesnt like the food. no fever or chills. no sob. denies pain. appears comfortable Objective Last 24 Hour Vital Signs Date Time Temp Pulse Resp B/P (MAP) Pulse Ox O2 Delivery O2 Flow Rate FiO2 01/15/19 04:05 98.9 58 16 144/76 (98) 95 01/15/19 03:44 61 01/15/19 00:07 70 01/15/19 00:00 97.7 78 20 159/104 (122) 93 01/14/19 21:00 Nasal Cannula 3.0 01/14/19 20:34 94 143/94 01/14/19 20:00 98.6 94 20 143/94 (110) 92 01/14/19 19:44 94 01/14/19 16:00 98 01/14/19 16:00 97.9 69 20 145/88 (107) 96 01/14/19 12:00 97.9 73 20 124/81 (95) 98 01/14/19 11:53 78 01/14/19 09:01 72 01/14/19 09:01 72 128/71 01/14/19 09:00 Nasal Cannula 3.0 Intake and Output 01/14/19 01/15/19 19:00 07:00 Intake Total 650 ml Output Total 500 ml 400 ml Balance 150 ml -400 ml Intake Oral 650 ml Output Urine Total 500 ml 400 ml Height (Feet): 5 Height (Inches): 1.00 Weight (Pounds): 106 Objective General Appearance: WD/WN, alert Neck: supple Cardiovascular: normal peripheral pulses, normal rate, regular rhythm Respiratory/Chest: chest wall non-tender, lungs clear, normal breath sounds Abdomen: normal bowel sounds, non tender, soft, no organomegaly Edema: no edema noted Arm (L), no edema noted Arm (R), no edema noted Leg (L), no edema noted Leg (R), no edema noted Pedal (L), no edema noted Pedal (R), no edema noted Generalized Varun Stewart MD January 15, 2019 08:05
[2019-01-15] MEDS: Solu-MEDROL 40mg Inj IVP SCH ×2 (08:32→20:16)
[2019-01-15] MEDS: Eliquis 5mg tablet ORAL SCH ×2 (08:32→17:41)
[2019-01-15] MEDS: Vancomycin oral 125mg/2.5ml ORAL SCH ×4 (08:32→20:16)
[2019-01-15] MEDS: Metoprolol Tartrate 50mg tab ORAL SCH ×2 (08:33→20:17)
[2019-01-15] MEDS: Digoxin 0.125mg tab ORAL SCH (08:33)
--- NOTE | 2019-01-15 09:42 | NUR ---
CASE MANAGEMENT:REVIEW 01/15/19 SI: RESPIRATORY FAILURE. COPD. PNA. CHF 98.2 84 19 128/74 100% ON 2L/NC IS: IV SOLUMEDROL 40MG Q12 IV ZOSYN Q8HRS PROTONIX PO QD LOPRESSOR PO Q12 DIGOXIN PO QD ELIQUIS PO BID : TELEMETRY STATUS DCP: FROM [facility]
--- NOTE | 2019-01-15 10:12 | NUR ---
*-* INSURANCE *-* UPDATED CLINICALS AND REVIEWS HAVE BEEN FAXED TO: [facility]; CIARA...COVERING FOR YOGESH P- [phone] F- [phone]....REVIEW/CLINICAL
--- NOTE | 2019-01-15 10:52 | NUR ---
ST NOTE: SWALLOW/SPEECH/COGNITION/BREATHING STATUS: S:PT SEEN AT BEDSIDE IN AM. ALERT AND COOPERATIVE, PT REPORTED THAT DISLIKES THE THICKENED LIQUIDS. PT WITH NC(3L). PER PT, BREATHING IS OKAY BUT SOMETIMES FEEL ANXIOUS. CHART REVIEWED. PER RN, PT WAS HAVING A-FIB 2 DAYS AGO. O:PT SEEN TO MONITOR CURRENT DIET. COMPLETED MEAL WITH PT, PT TOLERATED MECH SOFT(FINELY CHOPPED) DIET WITHOUT OVERT S/S OF ASPIRATION. EDUCATED PT RE: SAFE SWALLOW STRATEGIES. PT VERBALIZED THE GOOD UNDERSTANDING OF INFO GIVEN. COMPLETED BREATHING EXS WITH PT. MODIFIED BARIUM SWALLOW STUDY ORDER NOT SIGNED. WILL FOLLOW UP. P: CONTINUE CURRENT POC. CONSIDER UPGRADE THE LIQUID TO THIN(PT DISLIKES THICKENED LIQUIDS). D/W PT AND TRENTON JUAREZ.
--- NOTE | 2019-01-15 11:16 | NUR ---
DISCHARGE PLANNING CLINICALS HAVE BEEN FAXED TO [facility] T: [phone] F: [phone] Addendum: 01/15/19 at 1301 by JANNIE CASTILLO LVN LVN BED 8C IS AVAILABLE AT [facility] FOR THIS PATIENT AWAIT DISCHARGE ORDER
--- NOTE | 2019-01-15 11:20 | NUR ---
NURSE NOTES: Dr. Stewart made aware of result of ABG today 01/15/19, no order given yet. Will continue to monitor.
[2019-01-15 12:00] VITALS: BP 134/86
--- NOTE | 2019-01-15 12:29 | Pulmonology Progress Note ---
Assessment/Plan Assessment/Plan IMPRESSION: 1. Accelerated hypertension. 2. Acute on chronic diastolic congestive heart failure. 3. Status post respiratory failure. Now extubated 4. Pseudomonas pneumonia. 5. Severe pulmonary hypertension. 6. History of heroin addiction and now methadone dependence. 7. Peripheral neuropathy. DISCUSSION: Transferred to tele Keep intake/output negative Continue breathing treatments and broad spectrum antibiotics, I will follow carefully. Abhijit Morris M.D. Subjective Interval Events: Nonw new Constitutional: Reports: no symptoms HEENT: Repors: no symptoms Respiratory: Reports: no symptoms Cardiovascular: Reports: no symptoms Gastrointestinal/Abdominal: Reports: no symptoms Genitourinary: Reports: no symptoms Neurologic: Reports: no symptoms Allergies: Coded Allergies: No Known Allergies (Unverified , 10/17/18) Objective Last 24 Hour Vital Signs Date Time Temp Pulse Resp B/P (MAP) Pulse Ox O2 Delivery O2 Flow Rate FiO2 01/15/19 09:00 Nasal Cannula 3.0 01/15/19 08:33 84 01/15/19 08:33 84 128/74 01/15/19 08:08 98 Nasal Cannula 2.0 28 01/15/19 08:08 75 18 Nasal Cannula 2.0 28 01/15/19 08:08 Nasal Cannula 2.0 28 01/15/19 08:00 67 01/15/19 08:00 98.2 84 19 128/74 (92) 100 01/15/19 04:05 98.9 58 16 144/76 (98) 95 01/15/19 03:44 61 01/15/19 00:07 70 01/15/19 00:00 97.7 78 20 159/104 (122) 93 01/14/19 21:00 Nasal Cannula 3.0 01/14/19 20:34 94 143/94 01/14/19 20:00 98.6 94 20 143/94 (110) 92 01/14/19 19:44 94 01/14/19 16:00 98 01/14/19 16:00 97.9 69 20 145/88 (107) 96 Intake and Output 01/14/19 01/15/19 18:59 06:59 Intake Total 700 ml Output Total 500 ml 400 ml Balance 200 ml -400 ml Intake Oral 650 ml IV Total 50 ml Output Urine Total 500 ml 400 ml General Appearance: no acute distress HEENT: normocephalic Respiratory/Chest: chest wall non-tender, lungs clear Cardiovascular: normal peripheral pulses, normal rate Abdomen: normal bowel sounds, soft, non tender Microbiology Date/Time Source Procedure Growth Status 01/13/19 16:00 Stool Clostridium difficile Toxin Assay - Final Complete Laboratory Tests 01/15/19 10:00: Arterial Blood pH 7.429, Arterial Blood Partial Pressure CO2 53.9H, Arterial Blood Partial Pressure O2 113.7H, Arterial Blood HCO3 34.9H, Arterial Blood Oxygen Saturation 98.0, Arterial Blood Base Excess 9.1*H, Cameron Test Positive Current Medications Medications (Trade) Dose Ordered Sig/Aimee Route PRN Reason Start Time Stop Time Status Last Admin Dose Admin Apixaban (Eliquis) 5 mg BID ORAL 01/12/19 20:15 02/11/19 20:14 01/15/19 08:32 Chlorhexidine Gluconate (Mayra-Hex 2%) 1 applic DAILY@2000 TOPIC 01/12/19 20:00 02/07/19 19:59 01/14/19 20:33 Digoxin (Lanoxin) 0.125 mg DAILY ORAL 01/13/19 09:00 02/12/19 08:59 01/15/19 08:33 Haloperidol Lactate 5 mg/ Dextrose 56 ml @ 224 mls/hr Q6H PRN IVPB Agitation 01/12/19 18:00 02/11/19 17:59 Methadone HCl (Methadone HCl) 20 mg DAILYPRN PRN ORAL For Pain 01/12/19 13:30 01/18/19 13:29 01/15/19 10:00 Methylprednisolone Sodium Succinate (Solu-MEDROL) 40 mg EVERY 12 HOURS IVP 01/12/19 21:00 02/11/19 08:59 01/15/19 08:32 Metoprolol Tartrate (Lopressor) 50 mg Q12HR ORAL 01/13/19 09:00 02/12/19 08:59 01/15/19 08:33 Pantoprazole (Protonix) 40 mg DAILY ORAL 01/13/19 09:00 02/11/19 08:59 01/15/19 08:32 Piperacillin Sod/ Tazobactam Sod 3.375 gm/Sodium Chloride 110 ml @ 27.5 mls/hr Q8H IVPB 01/13/19 18:00 01/16/19 01:59 01/15/19 10:00 Vancomycin HCl (Firvanq) 125 mg FOUR TIMES A DAY ORAL 01/13/19 21:00 01/23/19 20:59 01/15/19 08:32 Abhijit Morris MD January 15, 2019 12:29
--- NOTE | 2019-01-15 12:30 | NUR ---
NURSE NOTES: Dr. Tariq at the nursing station, clarified regarding Eliquis when platelet and hgb trending down. Per Dr. Tariq, platelet and hgb within normal range, can administer dosage as ordered.
--- NOTE | 2019-01-15 13:24 | Infectious Diseases Prog Note ---
Assessment/Plan Assessment/Plan IMPRESSION: Sepsis resolving Pseudomonas pneumonia seizure activity, severe COPD, cachexia, anemia, diastolic CHF, pulmonary hypertension. VRE colonization RECOMMENDATION: continue with Zosyn x1 days contact isolation Wound care Subjective ROS Limited/Unobtainable: Yes Respiratory: Reports: shortness of breath, dry cough, other - doing better Gastrointestinal/Abdominal: Reports: no symptoms Genitourinary: Reports: no symptoms Musculoskeletal: Reports: pain Allergies: Coded Allergies: No Known Allergies (Unverified , 10/17/18) Objective Vital Signs Last 24 Hour Vital Signs Date Time Temp Pulse Resp B/P (MAP) Pulse Ox O2 Delivery O2 Flow Rate FiO2 01/15/19 12:00 98.2 73 20 134/86 (102) 98 01/15/19 09:00 Nasal Cannula 3.0 01/15/19 08:33 84 01/15/19 08:33 84 128/74 01/15/19 08:08 98 Nasal Cannula 2.0 28 01/15/19 08:08 75 18 Nasal Cannula 2.0 28 01/15/19 08:08 Nasal Cannula 2.0 28 01/15/19 08:00 67 01/15/19 08:00 98.2 84 19 128/74 (92) 100 01/15/19 04:05 98.9 58 16 144/76 (98) 95 01/15/19 03:44 61 01/15/19 00:07 70 01/15/19 00:00 97.7 78 20 159/104 (122) 93 01/14/19 21:00 Nasal Cannula 3.0 01/14/19 20:34 94 143/94 01/14/19 20:00 98.6 94 20 143/94 (110) 92 01/14/19 19:44 94 01/14/19 16:00 98 01/14/19 16:00 97.9 69 20 145/88 (107) 96 Height (Feet): 5 Height (Inches): 1.00 Weight (Pounds): 106 General Appearance: no acute distress HEENT: mucous membranes moist Respiratory/Chest: decreased breath sounds Cardiovascular: normal rate Abdomen: soft, non tender Extremities: no edema Neurologic/Psychiatric: alert, responsive Microbiology Date/Time Source Procedure Growth Status 01/13/19 16:00 Stool Clostridium difficile Toxin Assay - Final Complete Laboratory Tests Test 01/15/19 10:00 Arterial Blood pH 7.429 (7.350-7.450) Arterial Blood Partial Pressure CO2 53.9 mmHg (35.0-45.0) H Arterial Blood Partial Pressure O2 113.7 mmHg (75.0-100.0) H Arterial Blood HCO3 34.9 mmol/L (22.0-26.0) H Arterial Blood Oxygen Saturation 98.0 % (95-100) Arterial Blood Base Excess 9.1 (-2-2) *H Cameron Test Positive Current Medications Medications (Trade) Dose Ordered Sig/Aimee Route PRN Reason Start Time Stop Time Status Last Admin Dose Admin Apixaban (Eliquis) 5 mg BID ORAL 01/12/19 20:15 02/11/19 20:14 01/15/19 08:32 Chlorhexidine Gluconate (Mayra-Hex 2%) 1 applic DAILY@2000 TOPIC 01/12/19 20:00 02/07/19 19:59 01/14/19 20:33 Digoxin (Lanoxin) 0.125 mg DAILY ORAL 01/13/19 09:00 02/12/19 08:59 01/15/19 08:33 Haloperidol Lactate 5 mg/ Dextrose 56 ml @ 224 mls/hr Q6H PRN IVPB Agitation 01/12/19 18:00 02/11/19 17:59 Methadone HCl (Methadone HCl) 20 mg DAILYPRN PRN ORAL For Pain 01/12/19 13:30 01/18/19 13:29 01/15/19 10:00 Methylprednisolone Sodium Succinate (Solu-MEDROL) 40 mg EVERY 12 HOURS IVP 01/12/19 21:00 02/11/19 08:59 01/15/19 08:32 Metoprolol Tartrate (Lopressor) 50 mg Q12HR ORAL 01/13/19 09:00 02/12/19 08:59 01/15/19 08:33 Pantoprazole (Protonix) 40 mg DAILY ORAL 01/13/19 09:00 02/11/19 08:59 01/15/19 08:32 Piperacillin Sod/ Tazobactam Sod 3.375 gm/Sodium Chloride 110 ml @ 27.5 mls/hr Q8H IVPB 01/13/19 18:00 01/16/19 01:59 01/15/19 10:00 Vancomycin HCl (Firvanq) 125 mg FOUR TIMES A DAY ORAL 01/13/19 21:00 01/23/19 20:59 01/15/19 08:32 Jez Espinoza MD January 15, 2019 13:24
--- NOTE | 2019-01-15 14:09 | NUR ---
NURSE NOTES: Dr. Morris wrote provider note and aware of ABG result. No order given at this time. Will continue to monitor.
[2019-01-15 16:00] VITALS: BP 152/93
--- NOTE | 2019-01-15 19:20 | NUR ---
HAND-OFF: Report given to ANN Peter.
--- NOTE | 2019-01-15 19:21 | NUR ---
NURSE NOTES: Report received from ANN Hoover. Observed pt lying on the bed. A/O x3. Afib on monitoring specialist with HR of 90s. On NC 3L, with no signs of SOB. F/C intact and draining well. IV on R IJ, triple lumen, only one port is flushing. Bed in the lowest position. Side rails up x3. Will continue to monitor.
[2019-01-15 20:00] VITALS: BP 137/75
[2019-01-15] MEDS: Dyna-Hex 2% Top Sol 2oz TOPIC SCH (20:16)
--- NOTE | 2019-01-15 22:42 | NUR ---
NURSE NOTES: Observed pt lying on the bed. Reposition done. No acute distress noted at this time. On 3L without signs of SOB. Bed in the lowest position. Side rails padded and up x3. Call light within reach. Will continue to monitor.
[2019-01-16] VITALS: BP 171/102
[2019-01-16 00:30] VITALS: BP 157/95
--- NOTE | 2019-01-16 02:07 | NUR ---
NURSE NOTES: Bp of 171/102 noted around midnight. Notified and new order received and carried out. Pt is alert and oriented, no signs of mental status change. Will continue to monitor.
[2019-01-16 04:00] VITALS: BP 154/84
--- NOTE | 2019-01-16 04:00 | NUR ---
NURSE NOTES: Pt appears calm and comfortable, sleeping on the bed. No acute distress noted at this time BP of 154/84 noted. Will continue to monitor.
--- NOTE | 2019-01-16 07:36 | NUR ---
HAND-OFF: Report given to ANN Apple. No acute distress noted at this time.
--- NOTE | 2019-01-16 07:52 | NUR ---
NURSE NOTES: Report received from RN. Pt resting in bed locked in lowest position, Ox3 on 2L nasal cannula, no acute S/S of distress. IV right IJ triple lumen, only one port is flushing, ovalles catheter intact and draining well. Call light is within reach, will continue to monitor.
[2019-01-16 08:00] VITALS: BP 128/69
--- NOTE | 2019-01-16 08:06 | General Progress Note ---
Assessment/Plan Problem List: (1) Diabetes mellitus ICD Codes: E11.9 - Type 2 diabetes mellitus without complications SNOMED: 21596484 (2) Respiratory distress ICD Codes: R06.03 - Acute respiratory distress SNOMED: 343046714 (3) Heroin abuse ICD Codes: F11.10 - Heroin abuse SNOMED: 234365201 (4) CHF (congestive heart failure) ICD Codes: I50.9 - Heart failure, unspecified SNOMED: 35578784 (5) Respiratory failure ICD Codes: J96.90 - Respiratory failure, unspecified, unspecified whether with hypoxia or hypercapnia SNOMED: 222323424 Qualifiers: Qualified Codes: J96.01 - Acute respiratory failure with hypoxia; J96.02 - Acute respiratory failure with hypercapnia (6) Pneumonia involving right lung ICD Codes: J18.9 - Pneumonia, unspecified organism SNOMED: 213044842 Qualifiers: Qualified Codes: J18.9 - Pneumonia, unspecified organism (7) COPD (chronic obstructive pulmonary disease) ICD Codes: J44.9 - Chronic obstructive pulmonary disease, unspecified SNOMED: 84142116 Qualifiers: Qualified Codes: J44.9 - Chronic obstructive pulmonary disease, unspecified Status: stable, progressing Assessment/Plan: cont current rx iv abx per id iv steroids- wean as able resp rx monitor abg monitor labs prn anxiolytics dvt/stress ulcer prophylaxis ?dc planning if cleared by pulm Subjective ROS Limited/Unobtainable: No Constitutional: Reports: malaise, weakness HEENT: Reports: no symptoms Cardiovascular: Reports: no symptoms Respiratory: Reports: cough, shortness of breath Gastrointestinal/Abdominal: Reports: no symptoms Genitourinary: Reports: no symptoms Neurologic/Psychiatric: Reports: no symptoms Endocrine: Reports: no symptoms Hematologic/Lymphatic: Reports: no symptoms Allergies: Coded Allergies: No Known Allergies (Unverified , 10/17/18) All Systems: reviewed and negative except above Subjective doesnt like the food. no fever or chills. no sob. denies pain. appears comfortable pco2 slightly higher on abg. Objective Last 24 Hour Vital Signs Date Time Temp Pulse Resp B/P (MAP) Pulse Ox O2 Delivery O2 Flow Rate FiO2 01/16/19 06:51 Nasal Cannula 2.0 28 01/16/19 06:51 97 Nasal Cannula 2.0 28 01/16/19 04:00 51 01/16/19 04:00 98.0 54 20 154/84 (107) 96 01/16/19 01:47 170/100 01/16/19 00:30 157/95 (115) 01/16/19 00:00 68 01/16/19 00:00 97.7 64 20 171/102 (125) 96 01/15/19 21:00 Nasal Cannula 3.0 01/15/19 20:17 89 137/75 01/15/19 20:00 91 01/15/19 20:00 98.0 89 20 137/75 (95) 95 01/15/19 19:24 Nasal Cannula 2.0 28 01/15/19 19:24 98 Nasal Cannula 2.0 28 01/15/19 16:00 75 01/15/19 16:00 97.9 92 20 152/93 (112) 95 01/15/19 12:00 62 01/15/19 12:00 98.2 73 20 134/86 (102) 98 01/15/19 09:00 Nasal Cannula 3.0 01/15/19 08:33 84 01/15/19 08:33 84 128/74 01/15/19 08:08 98 Nasal Cannula 2.0 28 01/15/19 08:08 75 18 Nasal Cannula 2.0 28 01/15/19 08:08 Nasal Cannula 2.0 28 Intake and Output 01/15/19 01/16/19 19:00 07:00 Intake Total 220 ml 490 ml Output Total 200 ml 1300 ml Balance 20 ml -810 ml Intake Oral 220 ml 490 ml Output Urine Total 200 ml 1300 ml Laboratory Tests 01/15/19 10:00: Arterial Blood pH 7.429, Arterial Blood Partial Pressure CO2 53.9H, Arterial Blood Partial Pressure O2 113.7H, Arterial Blood HCO3 34.9H, Arterial Blood Oxygen Saturation 98.0, Arterial Blood Base Excess 9.1*H, Cameron Test Positive Height (Feet): 5 Height (Inches): 1.00 Weight (Pounds): 102 Objective General Appearance: WD/WN, alert Neck: supple Cardiovascular: normal peripheral pulses, normal rate, regular rhythm Respiratory/Chest: chest wall non-tender, lungs clear, normal breath sounds Abdomen: normal bowel sounds, non tender, soft, no organomegaly Edema: no edema noted Arm (L), no edema noted Arm (R), no edema noted Leg (L), no edema noted Leg (R), no edema noted Pedal (L), no edema noted Pedal (R), no edema noted Generalized Varun Stewart MD January 16, 2019 08:06
[2019-01-16] MEDS: Vancomycin oral 125mg/2.5ml ORAL SCH ×2 (08:54→12:46)
[2019-01-16] MEDS: Digoxin 0.125mg tab ORAL SCH (08:55)
[2019-01-16] MEDS: Metoprolol Tartrate 50mg tab ORAL SCH (08:55)
[2019-01-16] MEDS: Solu-MEDROL 40mg Inj IVP SCH (08:56)
--- NOTE | 2019-01-16 09:32 | Pulmonology Progress Note ---
Assessment/Plan Assessment/Plan IMPRESSION: 1. Accelerated hypertension. Controlled. 2. Acute on chronic diastolic congestive heart failure. 3. Status post respiratory failure. Now extubated 4. Pseudomonas pneumonia. 5. Severe pulmonary hypertension. 6. History of heroin addiction and now methadone dependence. 7. Peripheral neuropathy. DISCUSSION: Transferred to tele Keep intake/output negative Continue breathing treatments and broad spectrum antibiotics, I will follow carefully. Abhijit Morris M.D. Subjective Interval Events: None new Constitutional: Reports: no symptoms HEENT: Repors: no symptoms Respiratory: Reports: no symptoms Cardiovascular: Reports: no symptoms Gastrointestinal/Abdominal: Reports: no symptoms Allergies: Coded Allergies: No Known Allergies (Unverified , 10/17/18) Objective Last 24 Hour Vital Signs Date Time Temp Pulse Resp B/P (MAP) Pulse Ox O2 Delivery O2 Flow Rate FiO2 01/16/19 08:55 65 01/16/19 08:55 65 128/69 01/16/19 08:11 Nasal Cannula 3.0 01/16/19 08:00 98.3 65 20 128/69 (88) 95 01/16/19 06:51 Nasal Cannula 2.0 28 01/16/19 06:51 97 Nasal Cannula 2.0 28 01/16/19 04:00 51 01/16/19 04:00 98.0 54 20 154/84 (107) 96 01/16/19 01:47 170/100 01/16/19 00:30 157/95 (115) 01/16/19 00:00 68 01/16/19 00:00 97.7 64 20 171/102 (125) 96 01/15/19 21:00 Nasal Cannula 3.0 01/15/19 20:17 89 137/75 01/15/19 20:00 91 01/15/19 20:00 98.0 89 20 137/75 (95) 95 01/15/19 19:24 Nasal Cannula 2.0 28 01/15/19 19:24 98 Nasal Cannula 2.0 28 01/15/19 16:00 75 01/15/19 16:00 97.9 92 20 152/93 (112) 95 01/15/19 12:00 62 01/15/19 12:00 98.2 73 20 134/86 (102) 98 Intake and Output 01/15/19 01/16/19 19:00 07:00 Intake Total 220 ml 490 ml Output Total 200 ml 1300 ml Balance 20 ml -810 ml Intake Oral 220 ml 490 ml Output Urine Total 200 ml 1300 ml General Appearance: no acute distress HEENT: normocephalic Respiratory/Chest: chest wall non-tender, lungs clear Cardiovascular: normal peripheral pulses, normal rate Abdomen: normal bowel sounds Microbiology Date/Time Source Procedure Growth Status 01/13/19 16:00 Stool Clostridium difficile Toxin Assay - Final Complete Laboratory Tests 01/15/19 10:00: Arterial Blood pH 7.429, Arterial Blood Partial Pressure CO2 53.9H, Arterial Blood Partial Pressure O2 113.7H, Arterial Blood HCO3 34.9H, Arterial Blood Oxygen Saturation 98.0, Arterial Blood Base Excess 9.1*H, Cameron Test Positive Current Medications Medications (Trade) Dose Ordered Sig/Aimee Route PRN Reason Start Time Stop Time Status Last Admin Dose Admin Apixaban (Eliquis) 5 mg BID ORAL 01/15/19 18:00 02/14/19 17:59 01/15/19 17:41 Chlorhexidine Gluconate (Mayra-Hex 2%) 1 applic DAILY@2000 TOPIC 01/12/19 20:00 02/07/19 19:59 01/15/19 20:16 Clonidine HCl (Catapres Tab) 0.1 mg Q4H PRN ORAL For High Blood Pressure 01/16/19 01:15 02/15/19 01:14 01/16/19 01:47 Digoxin (Lanoxin) 0.125 mg DAILY ORAL 01/13/19 09:00 02/12/19 08:59 01/16/19 08:55 Haloperidol Lactate 5 mg/ Dextrose 56 ml @ 224 mls/hr Q6H PRN IVPB Agitation 01/12/19 18:00 02/11/19 17:59 Methadone HCl (Methadone HCl) 20 mg DAILYPRN PRN ORAL For Pain 01/12/19 13:30 01/18/19 13:29 01/16/19 08:56 Methylprednisolone Sodium Succinate (Solu-MEDROL) 40 mg EVERY 12 HOURS IVP 01/12/19 21:00 02/11/19 08:59 01/16/19 08:56 Metoprolol Tartrate (Lopressor) 50 mg Q12HR ORAL 01/13/19 09:00 02/12/19 08:59 01/16/19 08:55 Pantoprazole (Protonix) 40 mg DAILY ORAL 01/13/19 09:00 02/11/19 08:59 01/16/19 08:56 Vancomycin HCl (Firvanq) 125 mg FOUR TIMES A DAY ORAL 01/13/19 21:00 01/23/19 20:59 01/16/19 08:54 Abhijit Morris MD January 16, 2019 09:32
[2019-01-16] MEDS: Eliquis 5mg tablet ORAL SCH (09:52)
--- NOTE | 2019-01-16 10:31 | NUR ---
RD ASSESSMENT & RECOMMENDATIONS SEE CARE ACTIVITY FOR COMPLETE ASSESSMENT DAILY ESTIMATED NEEDS: Needs based on Underweight, wound, pulmonary, HIV+, 46.8kg 30-40 kcals/kg 7569-7138 total kcals 1.25-2 g protein/kg 59-94 g total protein 25-30 mL/kg 9011-1922 total fluid mLs NUTRITION DIAGNOSIS: 1) Increased kcal and protein needs r/t wasting, HIV, underweight status, and wound healing as evidenced by moderate to severe generalized muscle and fat wasting, BMI 16.2, pt is 70% of [place] Body Weight, HIV+, w/ wounds, refer to WC eval. 2) Swallowing difficulty r/t respiratory status as evidenced by s/p extubation, now on finely chopped diet w/ NTL per [facility] recs. CURRENT DIET:Now Low Na finely chopped diet w/ NTL PO DIET RECOMMENDATIONS: Low Na/ texture per [facility] ADDITIONAL RECOMMENDATIONS: * Maintain calibrated bed scale wts * Monitor BG on solumedrol/ need for SSI, h/o DM * Wound care: w/ GI access add MIMI BID + Vit C 250mg daily * Add Ensure 1 bottle BID in b/w meals . .
--- NOTE | 2019-01-16 10:57 | Infectious Diseases Prog Note ---
Assessment/Plan Assessment/Plan antibiotics ; zosyn, po vancomycin A 1. pseudomonas pneumonia s/p rx 2. leucocytosis resolved 3. seizures 4. CHF 5. rectal VRE colonization 6. diarrhea improving P 1. continue po vancomycin 6 more days 2. d/c zosyn 3. will follow up cultures Subjective Constitutional: Denies: fever, chills Respiratory: Reports: shortness of breath - decreased, dry cough - decreased Gastrointestinal/Abdominal: Reports: diarrhea - decreased; Denies: nausea, vomiting Musculoskeletal: Denies: pain Allergies: Coded Allergies: No Known Allergies (Unverified , 10/17/18) Objective Vital Signs Last 24 Hour Vital Signs Date Time Temp Pulse Resp B/P (MAP) Pulse Ox O2 Delivery O2 Flow Rate FiO2 01/16/19 08:55 65 01/16/19 08:55 65 128/69 01/16/19 08:11 Nasal Cannula 3.0 01/16/19 08:00 98.3 65 20 128/69 (88) 95 01/16/19 06:51 Nasal Cannula 2.0 28 01/16/19 06:51 97 Nasal Cannula 2.0 28 01/16/19 04:00 51 01/16/19 04:00 98.0 54 20 154/84 (107) 96 01/16/19 01:47 170/100 01/16/19 00:30 157/95 (115) 01/16/19 00:00 68 01/16/19 00:00 97.7 64 20 171/102 (125) 96 01/15/19 21:00 Nasal Cannula 3.0 01/15/19 20:17 89 137/75 01/15/19 20:00 91 01/15/19 20:00 98.0 89 20 137/75 (95) 95 01/15/19 19:24 Nasal Cannula 2.0 28 01/15/19 19:24 98 Nasal Cannula 2.0 28 01/15/19 16:00 75 01/15/19 16:00 97.9 92 20 152/93 (112) 95 01/15/19 12:00 62 01/15/19 12:00 98.2 73 20 134/86 (102) 98 Height (Feet): 5 Height (Inches): 1.00 Weight (Pounds): 102 Respiratory/Chest: lungs clear Cardiovascular: normal rate, regular rhythm, no gallop/murmur Abdomen: soft, non tender Extremities: no edema, other - right subclavian catheter Microbiology Date/Time Source Procedure Growth Status 01/13/19 16:00 Stool Clostridium difficile Toxin Assay - Final Complete Current Medications Medications (Trade) Dose Ordered Sig/Aimee Route PRN Reason Start Time Stop Time Status Last Admin Dose Admin Apixaban (Eliquis) 5 mg BID ORAL 01/15/19 18:00 02/14/19 17:59 01/16/19 09:52 Chlorhexidine Gluconate (Mayra-Hex 2%) 1 applic DAILY@2000 TOPIC 01/12/19 20:00 02/07/19 19:59 01/15/19 20:16 Clonidine HCl (Catapres Tab) 0.1 mg Q4H PRN ORAL For High Blood Pressure 01/16/19 01:15 02/15/19 01:14 01/16/19 01:47 Digoxin (Lanoxin) 0.125 mg DAILY ORAL 01/13/19 09:00 02/12/19 08:59 01/16/19 08:55 Haloperidol Lactate 5 mg/ Dextrose 56 ml @ 224 mls/hr Q6H PRN IVPB Agitation 01/12/19 18:00 02/11/19 17:59 Methadone HCl (Methadone HCl) 20 mg DAILYPRN PRN ORAL For Pain 01/12/19 13:30 01/18/19 13:29 01/16/19 08:56 Methylprednisolone Sodium Succinate (Solu-MEDROL) 40 mg EVERY 12 HOURS IVP 01/12/19 21:00 02/11/19 08:59 01/16/19 08:56 Metoprolol Tartrate (Lopressor) 50 mg Q12HR ORAL 01/13/19 09:00 02/12/19 08:59 01/16/19 08:55 Pantoprazole (Protonix) 40 mg DAILY ORAL 01/13/19 09:00 02/11/19 08:59 01/16/19 08:56 Vancomycin HCl (Firvanq) 125 mg FOUR TIMES A DAY ORAL 01/13/19 21:00 01/23/19 20:59 01/16/19 08:54 Jessy Zabala MD January 16, 2019 10:57
--- NOTE | 2019-01-16 11:13 | NUR ---
CASE MANAGEMENT:REVIEW 01/16/19 SI: RESPIRATORY FAILURE. COPD. PSEUDOMONAS PNA. AC/CHR CHF 98.3 65 20 128/69 95% ON 3L/NC IS: IV SOLUMEDROL 40MG Q12 VANCOMYCIN PO QID PROTONIX PO QD LOPRESSOR PO Q12 DIGOXIN PO QD ELIQUIS PO BID : TELEMETRY STATUS DCP: FROM [facility] CARE PLAN: WAITING FOR CLEARANCE FROM [facility] FOR DISCHARGE
--- NOTE | 2019-01-16 11:16 | NUR ---
*-* INSURANCE *-* UPDATED CLINICALS HAVE BEEN FAXED TO: [facility]; [place]...COVERING FOR [facility]DEE P- [phone] F- [phone]....REVIEW/CLINICAL
--- NOTE | 2019-01-16 11:26 | NUR ---
DISCHARGE PLANNING DISCHARGE ORDER NOTED MACHINE MAINTENANCE IS WORKING ON DISCHARGE
[2019-01-16 12:00] VITALS: BP 167/88
--- NOTE | 2019-01-16 13:10 | NUR ---
DISCHARGE PLANNED PATIENT WILL RETURN TO [facility] [address] [facility] T: [phone] FOR NURSE TO NURSE REPORT [facility] HAS BEEN ARRANGED FOR [facility] [employer] MARKETING MANAGER TRANSFER FORM COMPLETED
[2019-01-16] MEDS ORDERED: ELIQUIS5 MG PO (13:16)
[2019-01-16] MEDS ORDERED: CLONIDINE HCL0.1 MG PO (13:20)
[2019-01-16] MEDS ORDERED: DIGOXIN0.125 MG/2 ORAL (13:21)
[2019-01-16] MEDS ORDERED: METHADONE10 MG/5 ML PO (13:23)
[2019-01-16] MEDS ORDERED: METOPROLOL TART50 M1 ORAL (13:26)
[2019-01-16] MEDS ORDERED: PROTONIX40 MG ORAL (13:27)
[2019-01-16] MEDS ORDERED: PROTONIX20 MG ORAL (13:27)
--- NOTE | 2019-01-16 15:24 | NUR ---
NURSE NOTES: Called [facility] Kyle at 1330 they said that someone will call us back but no one has, called again just now, they answered, IV removed (Central Line, ID band also removed), report given to Romy JUAREZ, after care plan and med recon given, pt calm and cooperative, Ox4, vitals WNLs, pt signed his belongings sheet, pt took his clothes, lot porter here to pick him up.
[2019-01-16] MEDS ORDERED: Tubing IV Secondary IV ONE (15:35)
--- NOTE | 2019-01-16 17:29 | NUR ---
P.T NOTE: P.T EVALUATION COMPLETED AND TX INITIATED. PLEASE REFER TO P.T EVALUATION FOR CURRENT FUNCTIONAL STATUS. Addendum: 01/16/19 at 1730 by IRON SCHWARZ PT Amended: Links added.
--- NOTE | 2019-01-18 08:45 | Discharge Summary ---
Discharge Summary Discharge Summary _ DATE OF ADMISSION: 01/07/2019 DATE OF DISCHARGE: 01/16/2019 DISCHARGED BY: Dr. Stewart REASON FOR ADMISSION: 73 years old male with past medical history of COPD , history of prior intubation in November, prior smoker, severe pulmonary HTN, hypertension, congestive heart failure, type 2 diabetes mellitus, history of recent fall, right upper extremity fracture, chronic pain syndrome, on methadone, history of heroine abuse and alcoholism, resident of [facility] facility, was transferred for evaluation due to hypoxia, hypotension and altered mental status. Upon presentation in emergency department patient was on 100% nonrebreathing mask and was tachycardic with heart rate of 130. Patient required emergency oral intubation. Laboratory work-up revealed leukocytosis WBC 15 , hemoglobin 10.2 , hematocrit 31.8. Stable electrolytes and renal parameters. Lactic acid 0.6. Stable LFT. Troponin negative. Pro BNP 1034. Urinalysis revealed no evidence of urinary tract infection. EKG revealed sinus tachycardia, no acute ischemic changes. Chest x-ray demonstrated patchy bilateral infiltrates, possible superimposed pulmonary edema. Satisfactory endotracheal tube placement. Patient pancultured, started on empiric antibiotics, boluses of IV fluids provided. Patient subsequently was admitted to ICU for further management. CONSULTANTS: oncology account specialist Dr. Grewal pulmonary Dr. Morris ID specialist Dr. Zabala HOSPITAL COURSE: Patient admitted to ICU. Doctor Of Pharmacy, reel hooker and infectious disease specialist closely followed. Ventilator support and pulmonary toilet provided. Patient was followed-up with ABGs. Patient started on IV steroids with gradual tapering. Patient started on empiric antibiotic as per ID specialist recommendations. Diuresis was on hold initially. DVT and GI prophylaxis provided. Seizure precaution maintained. No evidence of seizure activity while in the hospital. Patient was able to be extubated on 01/10. Supplemental oxygen titrated to keep pulse oximetry above 92%. Pulmonary toilet provided. Steroids tapered. Sputum culture revealed Pseudomonas aeruginosa. Blood cultures were negative. Stool for C. difficile was negative. Leukocytosis and fevers resolved. Patient completed treatment for pneumonia . Patient received oral vancomycin since he had diarrhea. Stool for C. difficile was negative. Diarrhea improved. Infectious disease doctor recommended continue oral vancomycin for additional 6 days and observe patient closely. DVT and GI prophylaxis provided. After extubation patient was transferred to telemetry. Patient started on diuresis with close monitoring of volumes and cardiorenal parameters. Patient transferred to maintenance dose of steroid. Patient noted to have a new onset of atrial fibrillation. Patient started on metoprolol , digoxin and anticoagulation with Eliquis. Patient found to have accelerated hypertension stage I. Beta-christine continued. Norvasc added. Blood pressure stabilized. Recent ECHO revealed preserved ejection fraction of 60%. Renal parameters and electrolytes were closely monitored. Electrolytes/potassium corrected as needed. Bedside swallow evaluation revealed probable persistent mild to moderate oropharyngeal dysphasia. Diet texture provided as per speech therapist recommendation. Video swallow evaluation was recommended, and can be done as outpatient. Blood sugar was closely monitored and remained stable. When stabilized patient was working with physical therapy. Fall precaution maintained. Protein supplements implemented in diet as per post acute care registered nurse recommendations. Diet was slowly initiated with aspiration precaution. Patient stabilized and was ready for transfer to [facility] as intermediate. 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 DISCHARGE INSTRUCTIONS: [facility] to [facility] facility. Follow up with medical doctor at the facility. I have been assigned to dictate discharge summary for this account. I was not involved in the patient's management. Kathy Yin NP January 18, 2019 08:45
--- NOTE | 2019-01-18 10:42 | NUR ---
*-* INSURANCE *-* DISCHARGE SUMMARY HAVE BEEN FAXED TO: [facility]; [place]...[facility] P- [phone] F- [phone]....REVIEW/CLINICAL
== END 2019-01-16 15:36 | DRG 720 ==
LOC: EDBD 16:04 → EMR 16:26 → ICU 16:37 → EDBEDREQ 17:05 → 2E 01-12 13:30
PROC: 5A1945Z Respiratory Ventilation, 24-96 Consecutive Hours (ICD-10-PCS; principal; 2019-01-07)
PROC: 0BH17EZ Insertion of Endotracheal Airway into Trachea, Via Natural or Artificial Opening (ICD-10-PCS; principal; 2019-01-07)
PROC: 05HM33Z Insertion of Infusion Device into Right Internal Jugular Vein, Percutaneous Approach (ICD-10-PCS; principal; 2019-01-07)
DX: A41.9 Sepsis, unspecified organism (principal); J69.0 Pneumonitis due to inhalation of food and vomit; R65.21 Severe sepsis with septic shock; G92 Toxic encephalopathy; J15.1 Pneumonia due to Pseudomonas; J96.01 Acute respiratory failure with hypoxia; J96.02 Acute respiratory failure with hypercapnia; I50.33 Acute on chronic diastolic (congestive) heart failure; R13.12 Dysphagia, oropharyngeal phase; E44.0 Moderate protein-calorie malnutrition; F11.20 Opioid dependence, uncomplicated; Z68.1 Body mass index [BMI] 19.9 or less, adult; I11.0 Hypertensive heart disease with heart failure; J44.0 Chronic obstructive pulmonary disease with (acute) lower respiratory infection; J44.1 Chronic obstructive pulmonary disease with (acute) exacerbation; G89.29 Other chronic pain; E11.42 Type 2 diabetes mellitus with diabetic polyneuropathy; I27.20 Pulmonary hypertension, unspecified; F10.21 Alcohol dependence, in remission; G40.909 Epilepsy, unspecified, not intractable, without status epilepticus; I48.91 Unspecified atrial fibrillation; R19.7 Diarrhea, unspecified; D64.9 Anemia, unspecified
CPT/HCPCS: 31500; 36415; 36600; 71045; 80048; 80053; 80076; 81003; 82550; 82803; 83605; 83735; 83880; 84100; 84484; 84550; 85007; 85025; 85610; 85730; 87040; 87070; 87081; 87181; 87205; 87324; 93005; 94002; 94003; 94640; 94664; 94760; 96361; 96365; 96375; 96376; 99291; J2250; J8499